=== PATIENT | male | born 1950 | race Two or more races ===

== ENCOUNTER 2018-08-15 07:04 | Day surgery (SDC) | payer OTHER ==
[2018-08-15] MEDS ORDERED: SODIUM CHLORIDE 250 ML IV ONE ×2 (08:30→10:30)
[2018-08-15] MEDS ORDERED: PACLITAXEL 90 MG in SODIUM CHLORIDE 250 ML IVPB ONE (09:00)
[2018-08-15] MEDS ORDERED: PALONOSETRON HCL 0.25 MG/5 ML VIAL IVPUSH ONE (09:00)
[2018-08-15] MEDS ORDERED: DEXAMETHASONE INJECTION 10 MG, DIPHENHYDRAMINE 50 MG, RANITIDINE INJECTION 50 MG in SOD... IVPB ONE (09:00)
[2018-08-15 09:17] LABS: HEMATOCRIT 34.2 % (35.4-49); HEMOGLOBIN 11.6 GM/dL (11.7-16.9); LYMPH % 4.7 % (8-40); MCH 31.3 pg (25.7-33.7); MCHC 33.8 g/dl (32.0-35.9); MEAN CELL VOLUME 92.7 fl (80-96); MEAN PLT VOLUME 6.7 fl (7.5-11.1); MONO % 0.6 % (3.8-10.2); NEUT % 94.7 % (42.8-82.8); PLATELET COUNT 398 K/MM3 (134-434); RBC 3.69 M/mm3 (4.00-5.60); WHITE BLOOD COUNT 8.4 K/mm3 (4.0-10.0)
[2018-08-15 09:52] LABS: ALBUMIN 3.1 g/dl (3.4-5.0); ALK PHOS 140 U/L (45-117); ANION GAP 7 MMOL/L (8-16); BILIRUBIN,DIRECT 0.1 mg/dL (0.0-0.2); BILIRUBIN,TOTAL 0.2 mg/dL (0.2-1); BLOOD UREA NITROGEN 11 mg/dL (7-18); CALCIUM 9.4 mg/dL (8.5-10.1); CHLORIDE 102 mmol/L (98-107); CO2 26 mmol/L (21-32); CREATININE 0.9 mg/dL (0.55-1.3); GLUCOSE,RANDOM 240 mg/dL (74-106); MAGNESIUM 2.3 mg/dL (1.8-2.4); POTASSIUM 4.1 mmol/L (3.5-5.1); SGOT/AST 9 U/L (15-37); SGPT/ALT 22 U/L (13-61); SODIUM 136 mmol/L (136-145); TOT PROT 8.2 g/dl (6.4-8.2)
[2018-08-15] MEDS ORDERED: SODIUM CHLORIDE IVPB ONE (10:00)
[2018-08-15] MEDS ORDERED: CARBOPLATIN IVPB ONE (10:00)
[2018-08-15] MEDS ORDERED: Insulin (LOG) Aspart 100 UNITS/ML VIAL SQ ONE (10:08)
[2018-08-15 11:26] LABS: ANISOCYTOSIS 0; MACROCYTOSIS 1+; OVALOCYTE 1+; PLATELET ESTIMATE NORMAL
[2018-08-15 15:43] VITALS: BP 142/71; PULSE 95; TEMP 98.6
== END 2018-08-15 13:15 | disposition home or self-care (01) ==
LOC: JONCCHEMO 07:04 → J7W 09:15 → JONCCHEMO 13:15
PROVIDERS: ATTEND Internal Medicine Hematology & Oncology
DX: Z51.11 Encounter for antineoplastic chemotherapy (principal); C34.91 Malignant neoplasm of unspecified part of right bronchus or lung; Z72.0 Tobacco use
CPT/HCPCS: 36415; 80053; 80076; 82378; 83735; 85025; 96367; 96375; 96413; 96417; J2469

== ENCOUNTER 2018-08-22 07:03 | Day surgery (SDC) | payer OTHER ==
[2018-08-22] MEDS ORDERED: SODIUM CHLORIDE 250 ML IV ONE ×2 (08:00→10:30)
[2018-08-22] MEDS ORDERED: DEXAMETHASONE SODIUM PHOSPHATE 10 MG, DIPHENHYDRAMINE 50 MG, RANITIDINE INJECTION 50 MG... IVPB ONE (08:30)
[2018-08-22] MEDS ORDERED: PALONOSETRON HCL 0.25 MG/5 ML VIAL IVPUSH ONE (08:30)
[2018-08-22] MEDS ORDERED: PACLITAXEL 90 MG in SODIUM CHLORIDE 250 ML IVPB ONE (09:00)
[2018-08-22 09:35] LABS: BASO % 0.2 % (0-2.0); HEMATOCRIT 33.3 % (35.4-49); HEMOGLOBIN 11.1 GM/dL (11.7-16.9); LYMPH % 3.7 % (8-40); MCH 30.6 pg (25.7-33.7); MCHC 33.4 g/dl (32.0-35.9); MEAN CELL VOLUME 91.6 fl (80-96); MEAN PLT VOLUME 7.1 fl (7.5-11.1); MONO % 0.6 % (3.8-10.2); NEUT % 95.5 % (42.8-82.8); PLATELET COUNT 381 K/MM3 (134-434); RBC 3.64 M/mm3 (4.00-5.60); RDW 14.9 % (11.9-15.9); WHITE BLOOD COUNT 5.7 K/mm3 (4.0-10.0)
[2018-08-22 09:57] LABS: ANION GAP 6 MMOL/L (8-16); BLOOD UREA NITROGEN 9 mg/dL (7-18); CHLORIDE 118 mmol/L (98-107); CO2 18 mmol/L (21-32); CREATININE 0.4 mg/dL (0.55-1.3); GLUCOSE,RANDOM 172 mg/dL (74-106); MAGNESIUM 1.3 mg/dL (1.8-2.4); SODIUM 142 mmol/L (136-145)
[2018-08-22] MEDS ORDERED: SODIUM CHLORIDE IVPB ONE (10:00)
[2018-08-22] MEDS ORDERED: CARBOPLATIN IVPB ONE (10:00)
[2018-08-22 10:09] LABS: CALCIUM 5.9 mg/dL (8.5-10.1); POTASSIUM 2.9 mmol/L (3.5-5.1)
[2018-08-22] MEDS ORDERED: MAGNESIUM SULF 50% (8.12 MEQ/2 ML-1 GM VIAL) IVPB ONE (10:45)
[2018-08-22] MEDS ORDERED: CALCIUM GLUCONATE 10% - 1,000 MG/10 ML VIAL IVPB ONE (10:45)
[2018-08-22] MEDS: POTASSIUM CHLORIDE TABS 20 MEQ TABLET.ER (FP) PO SCH ×2 (11:42→15:02)
[2018-08-22 15:48] VITALS: BP 138/61; PULSE 102; TEMP 98.2
== END 2018-08-22 15:30 | disposition home or self-care (01) ==
LOC: JONCCHEMO 07:03 → J7W 09:56 → JONCCHEMO 15:30
PROVIDERS: ATTEND Internal Medicine Hematology & Oncology
DX: Z51.11 Encounter for antineoplastic chemotherapy (principal); C34.91 Malignant neoplasm of unspecified part of right bronchus or lung
CPT/HCPCS: 36415; 80048; 83735; 85025; 96361; 96366; 96367; 96375; 96413; 96417; J2469

== ENCOUNTER 2018-08-23 08:24 | Day surgery (SDC) | payer OTHER ==
[2018-08-23] MEDS ORDERED: POTASSIUM CHLORIDE 20 MEQ in DEXTROSE 5%-NORMAL SALINE 500 ML IVPB SCH (09:45)
[2018-08-23] MEDS ORDERED: ONDANSETRON 4 MG/2 ML VIAL IVPB ONE (10:00)
[2018-08-23] MEDS ORDERED: DEXAMETHASONE SOD PHOSPHATE 4 MG/1 ML VIAL IVPB ONE (10:00)
[2018-08-23] MEDS ORDERED: D5-NS + 20 MEQ KCL - 20 MEQ/1,000 ML INFUS.BAG IV SCH (10:00)
[2018-08-23] MEDS: MAGNESIUM SULF 50% (8.12 MEQ/2 ML-1 GM VIAL) IVPB ONE ×2 (10:14→12:55)
[2018-08-23 12:22] LABS: ALBUMIN 2.8 g/dl (3.4-5.0); ALK PHOS 140 U/L (45-117); ANION GAP 5 MMOL/L (8-16); BILIRUBIN,TOTAL 0.2 mg/dL (0.2-1); BLOOD UREA NITROGEN 14 mg/dL (7-18); CALCIUM 9.2 mg/dL (8.5-10.1); CHLORIDE 104 mmol/L (98-107); CO2 29 mmol/L (21-32); CREATININE 0.8 mg/dL (0.55-1.3); GLUCOSE,RANDOM 178 mg/dL (74-106); MAGNESIUM 2.1 mg/dL (1.8-2.4); POTASSIUM 4.7 mmol/L (3.5-5.1); SGOT/AST 23 U/L (15-37); SGPT/ALT 42 U/L (13-61); SODIUM 138 mmol/L (136-145); TOT PROT 7.1 g/dl (6.4-8.2)
[2018-08-23 15:18] VITALS: BP 127/73; PULSE 87
[2018-08-23 17:18] VITALS: TEMP 98.4
== END 2018-08-23 12:30 | disposition home or self-care (01) ==
LOC: JONCNONCHE 08:24 → J7W 09:34 → JONCNONCHE 12:30
PROVIDERS: ATTEND Internal Medicine Hematology & Oncology
DX: Z51.11 Encounter for antineoplastic chemotherapy (principal); C34.91 Malignant neoplasm of unspecified part of right bronchus or lung
CPT/HCPCS: 36415; 80053; 83735; 84100; 96361; 96366; 96367; 96375; 96413; 96417

== ENCOUNTER 2018-08-29 07:03 | Day surgery (SDC) | payer OTHER ==
[2018-08-29] MEDS ORDERED: PALONOSETRON HCL 0.25 MG/5 ML VIAL IVPUSH ONE (08:00)
[2018-08-29] MEDS ORDERED: DEXAMETHASONE SODIUM PHOSPHATE 10 MG, DIPHENHYDRAMINE 50 MG, RANITIDINE INJECTION 50 MG... IVPB ONE (08:00)
[2018-08-29] MEDS ORDERED: PACLITAXEL 90 MG in SODIUM CHLORIDE 250 ML IVPB ONE (08:30)
[2018-08-29 08:48] LABS: BASO % 0.2 % (0-2.0); HEMATOCRIT 32.9 % (35.4-49); LYMPH % 2.9 % (8-40); MCH 31.1 pg (25.7-33.7); MCHC 33.5 g/dl (32.0-35.9); MEAN CELL VOLUME 92.8 fl (80-96); MEAN PLT VOLUME 6.8 fl (7.5-11.1); MONO % 0.8 % (3.8-10.2); NEUT % 96.1 % (42.8-82.8); PLATELET COUNT 337 K/MM3 (134-434); RBC 3.54 M/mm3 (4.00-5.60); RDW 15.1 % (11.9-15.9); WHITE BLOOD COUNT 3.4 K/mm3 (4.0-10.0)
[2018-08-29 09:21] LABS: ALBUMIN 2.9 g/dl (3.4-5.0); ALK PHOS 135 U/L (45-117); ANION GAP 10 MMOL/L (8-16); BILIRUBIN,DIRECT 0.1 mg/dL (0.0-0.2); BILIRUBIN,TOTAL 0.2 mg/dL (0.2-1); BLOOD UREA NITROGEN 11 mg/dL (7-18); CALCIUM 9.4 mg/dL (8.5-10.1); CHLORIDE 98 mmol/L (98-107); CO2 26 mmol/L (21-32); CREATININE 0.9 mg/dL (0.55-1.3); GLUCOSE,RANDOM 240 mg/dL (74-106); MAGNESIUM 2.1 mg/dL (1.8-2.4); POTASSIUM 4.2 mmol/L (3.5-5.1); SGOT/AST 13 U/L (15-37); SGPT/ALT 23 U/L (13-61); SODIUM 135 mmol/L (136-145); TOT PROT 7.6 g/dl (6.4-8.2)
[2018-08-29] MEDS ORDERED: CARBOPLATIN IVPB ONE (09:30)
[2018-08-29] MEDS ORDERED: SODIUM CHLORIDE IVPB ONE (09:30)
[2018-08-29] MEDS ORDERED: SODIUM CHLORIDE 250 ML IV ONE (10:00)
[2018-08-29] MEDS ORDERED: INSULIN (NOVOLOG) ASPART 100 UNITS/ML 10ML VIAL SQ ONE (10:25)
[2018-08-29 11:00] LABS: ANISOCYTOSIS 1+; MACROCYTOSIS 1+; OVALOCYTE 1+; PLATELET ESTIMATE NORMAL
[2018-08-29 14:32] VITALS: TEMP 97.9
[2018-08-29 14:33] VITALS: BP 133/76; PULSE 94
== END 2018-08-29 12:00 | disposition home or self-care (01) ==
LOC: JONCCHEMO 07:03 → J7W 08:57 → JONCCHEMO 12:00
PROVIDERS: ATTEND Internal Medicine Hematology & Oncology
DX: Z51.11 Encounter for antineoplastic chemotherapy (principal); C34.91 Malignant neoplasm of unspecified part of right bronchus or lung
CPT/HCPCS: 36415; 80048; 80076; 83036; 83735; 85025; 96367; 96375; 96413; 96417; J2469

== ENCOUNTER 2018-09-05 07:09 | Day surgery (SDC) | payer OTHER ==
[2018-09-05] MEDS ORDERED: SODIUM CHLORIDE 250 ML IV ONE ×2 (08:00→10:30)
[2018-09-05] MEDS ORDERED: PALONOSETRON HCL 0.25 MG/5 ML VIAL IVPUSH ONE (08:30)
[2018-09-05] MEDS ORDERED: DEXAMETHASONE SODIUM PHOSPHATE 10 MG, DIPHENHYDRAMINE 50 MG, RANITIDINE INJECTION 50 MG... IVPB ONE (08:30)
[2018-09-05 08:57] LABS: BASO % 0.4 % (0-2.0); EOS % 0.5 % (0-4.5); HEMATOCRIT 31.9 % (35.4-49); HEMOGLOBIN 10.9 GM/dL (11.7-16.9); MCH 31.8 pg (25.7-33.7); MCHC 34.1 g/dl (32.0-35.9); MEAN CELL VOLUME 93.2 fl (80-96); MEAN PLT VOLUME 6.8 fl (7.5-11.1); MONO % 4.7 % (3.8-10.2); NEUT % 91.4 % (42.8-82.8); PLATELET COUNT 223 K/MM3 (134-434); RBC 3.42 M/mm3 (4.00-5.60)
[2018-09-05] MEDS ORDERED: PACLITAXEL 84 MG in SODIUM CHLORIDE 250 ML IVPB ONE (09:00)
[2018-09-05 09:20] LABS: ALK PHOS 115 U/L (45-117); ANION GAP 7 MMOL/L (8-16); BILIRUBIN,DIRECT 0.1 mg/dL (0.0-0.2); BILIRUBIN,TOTAL 0.4 mg/dL (0.2-1); BLOOD UREA NITROGEN 8 mg/dL (7-18); CALCIUM 9.3 mg/dL (8.5-10.1); CHLORIDE 102 mmol/L (98-107); CO2 27 mmol/L (21-32); CREATININE 0.8 mg/dL (0.55-1.3); GLUCOSE,RANDOM 171 mg/dL (74-106); MAGNESIUM 2.1 mg/dL (1.8-2.4); SGOT/AST 21 U/L (15-37); SGPT/ALT 27 U/L (13-61); SODIUM 136 mmol/L (136-145)
[2018-09-05] MEDS ORDERED: SODIUM CHLORIDE IVPB ONE (10:00)
[2018-09-05] MEDS ORDERED: CARBOPLATIN IVPB ONE (10:00)
[2018-09-05 11:45] LABS: ANISOCYTOSIS 0; MACROCYTOSIS 0; PLATELET ESTIMATE NORMAL
[2018-09-05 16:56] VITALS: BP 132/86; PULSE 105; TEMP 98.2
== END 2018-09-05 14:00 | disposition home or self-care (01) ==
LOC: JONCCHEMO 07:09 → J7W 10:17 → JONCCHEMO 14:00
PROVIDERS: ATTEND Internal Medicine Hematology & Oncology
DX: Z51.11 Encounter for antineoplastic chemotherapy (principal); C34.91 Malignant neoplasm of unspecified part of right bronchus or lung
CPT/HCPCS: 36415; 80048; 80076; 83735; 85025; 96375; 96413; 96417; J2469

== ENCOUNTER 2018-09-12 07:16 | Day surgery (SDC) | payer OTHER ==
[2018-09-12] MEDS ORDERED: SODIUM CHLORIDE 250 ML IV ONE ×2 (09:00→11:30)
[2018-09-12 09:10] LABS: BASO % 0.4 % (0-2.0); EOS % 0.4 % (0-4.5); HEMOGLOBIN 10.4 GM/dL (11.7-16.9); LYMPH % 3.7 % (8-40); MCH 31.1 pg (25.7-33.7); MCHC 33.4 g/dl (32.0-35.9); MEAN PLT VOLUME 6.8 fl (7.5-11.1); MONO % 3.7 % (3.8-10.2); NEUT % 91.8 % (42.8-82.8); PLATELET COUNT 158 K/MM3 (134-434); RBC 3.34 M/mm3 (4.00-5.60); RDW 15.6 % (11.9-15.9); WHITE BLOOD COUNT 3.2 K/mm3 (4.0-10.0)
[2018-09-12 09:19] LABS: ALK PHOS 91 U/L (45-117); ANION GAP 10 MMOL/L (8-16); BILIRUBIN,DIRECT 0.1 mg/dL (0.0-0.2); BILIRUBIN,TOTAL 0.3 mg/dL (0.2-1); BLOOD UREA NITROGEN 9 mg/dL (7-18); CHLORIDE 100 mmol/L (98-107); CO2 28 mmol/L (21-32); CREATININE 0.8 mg/dL (0.55-1.3); GLUCOSE,RANDOM 195 mg/dL (74-106); MAGNESIUM 1.9 mg/dL (1.8-2.4); POTASSIUM 3.8 mmol/L (3.5-5.1); SGOT/AST 13 U/L (15-37); SGPT/ALT 21 U/L (13-61); SODIUM 138 mmol/L (136-145); TOT PROT 6.8 g/dl (6.4-8.2)
[2018-09-12] MEDS ORDERED: PALONOSETRON HCL 0.25 MG/5 ML VIAL IVPUSH ONE (09:30)
[2018-09-12] MEDS ORDERED: DEXAMETHASONE SODIUM PHOSPHATE 10 MG, DIPHENHYDRAMINE 50 MG, RANITIDINE INJECTION 50 MG... IVPB ONE (09:30)
[2018-09-12] MEDS ORDERED: PACLITAXEL 84 MG in SODIUM CHLORIDE 250 ML IVPB ONE (10:00)
[2018-09-12] MEDS ORDERED: SODIUM CHLORIDE IVPB ONE (11:00)
[2018-09-12] MEDS ORDERED: CARBOPLATIN IVPB ONE (11:00)
[2018-09-12 15:16] VITALS: BP 135/75; PULSE 103; TEMP 98.8
[2018-09-12 15:29] LABS: PLATELET ESTIMATE ADEQUATE
== END 2018-09-12 13:40 | disposition home or self-care (01) ==
LOC: JONCCHEMO 07:16 → J7W 09:07 → JONCCHEMO 13:40
PROVIDERS: ATTEND Internal Medicine Hematology & Oncology
DX: Z51.11 Encounter for antineoplastic chemotherapy (principal); C34.91 Malignant neoplasm of unspecified part of right bronchus or lung
CPT/HCPCS: 36415; 80048; 80076; 83735; 85025; 96361; 96367; 96375; 96413; 96417; J2469

== ENCOUNTER 2018-09-19 07:10 | Day surgery (SDC) | payer OTHER ==
[2018-09-19 08:54] LABS: BASO % 0.7 % (0-2.0); HEMATOCRIT 32.3 % (35.4-49); HEMOGLOBIN 10.7 GM/dL (11.7-16.9); MCH 31.4 pg (25.7-33.7); MCHC 33.2 g/dl (32.0-35.9); MEAN CELL VOLUME 94.6 fl (80-96); MEAN PLT VOLUME 7.1 fl (7.5-11.1); NEUT % 88.3 % (42.8-82.8); PLATELET COUNT 119 K/MM3 (134-434); RBC 3.42 M/mm3 (4.00-5.60); RDW 15.3 % (11.9-15.9); WHITE BLOOD COUNT 2.3 K/mm3 (4.0-10.0)
[2018-09-19 09:20] LABS: ALBUMIN 3.1 g/dl (3.4-5.0); BILIRUBIN,TOTAL 0.3 mg/dL (0.2-1); CALCIUM 8.9 mg/dL (8.5-10.1); CREATININE 0.8 mg/dL (0.55-1.3); MAGNESIUM 1.9 mg/dL (1.8-2.4); POTASSIUM 3.7 mmol/L (3.5-5.1); TOT PROT 6.6 g/dl (6.4-8.2)
[2018-09-19] MEDS ORDERED: SODIUM CHLORIDE 250 ML IV ONE ×2 (10:00→12:00)
[2018-09-19] MEDS ORDERED: DEXAMETHASONE SODIUM PHOSPHATE 10 MG, DIPHENHYDRAMINE 50 MG, RANITIDINE INJECTION 50 MG... IVPB ONE (10:00)
[2018-09-19] MEDS ORDERED: PALONOSETRON HCL 0.25 MG/5 ML VIAL IVPUSH ONE (10:00)
[2018-09-19] MEDS: PACLITAXEL 84 MG in SODIUM CHLORIDE 250 ML IVPB ONE ×2 (10:34→10:35)
[2018-09-19] MEDS ORDERED: SODIUM CHLORIDE IVPB ONE (11:30)
[2018-09-19] MEDS ORDERED: CARBOPLATIN IVPB ONE (11:30)
[2018-09-19 15:44] VITALS: TEMP 9.1
[2018-09-19 16:12] VITALS: BP 108/72; PULSE 88
== END 2018-09-19 13:30 | disposition home or self-care (01) ==
LOC: JONCCHEMO 07:10 → J7W 09:07 → JONCCHEMO 13:30
PROVIDERS: ATTEND Internal Medicine Hematology & Oncology
DX: Z51.11 Encounter for antineoplastic chemotherapy (principal); C34.91 Malignant neoplasm of unspecified part of right bronchus or lung
CPT/HCPCS: 36415; 80053; 83735; 85025; 96367; 96375; 96413; J2469

== ENCOUNTER 2018-09-26 07:20 | Day surgery (SDC) | payer OTHER ==
[2018-09-26 09:02] LABS: HEMATOCRIT 27.2 % (35.4-49); HEMOGLOBIN 9.2 GM/dL (11.7-16.9); LYMPH % 5.5 % (8-40); MCH 31.8 pg (25.7-33.7); MCHC 33.9 g/dl (32.0-35.9); MEAN CELL VOLUME 93.9 fl (80-96); MEAN PLT VOLUME 7.2 fl (7.5-11.1); MONO % 9.8 % (3.8-10.2); NEUT % 82.3 % (42.8-82.8); PLATELET COUNT 118 K/MM3 (134-434); RDW 16.5 % (11.9-15.9)
[2018-09-26 09:03] LABS: BASO % 0.7 % (0-2.0); EOS % 1.7 % (0-4.5)
[2018-09-26 09:22] LABS: WHITE BLOOD COUNT 1.9 K/mm3 (4.0-10.0)
[2018-09-26 09:29] LABS: ALBUMIN 2.8 g/dl (3.4-5.0); BILIRUBIN,DIRECT 0.1 mg/dL (0.0-0.2); BILIRUBIN,TOTAL 0.3 mg/dL (0.2-1); CALCIUM 8.6 mg/dL (8.5-10.1); CREATININE 0.8 mg/dL (0.55-1.3); POTASSIUM 3.6 mmol/L (3.5-5.1); TOT PROT 6.2 g/dl (6.4-8.2)
[2018-09-26] MEDS ORDERED: SODIUM CHLORIDE 250 ML IV ONE ×2 (09:30→12:00)
[2018-09-26] MEDS ORDERED: DEXAMETHASONE SODIUM PHOSPHATE 10 MG, DIPHENHYDRAMINE 50 MG, RANITIDINE INJECTION 50 MG... IVPB ONE (10:00)
[2018-09-26] MEDS ORDERED: PALONOSETRON HCL 0.25 MG/5 ML VIAL IVPUSH ONE (10:00)
[2018-09-26] MEDS ORDERED: PACLITAXEL 84 MG in SODIUM CHLORIDE 250 ML IVPB ONE ×2 (10:30→10:45)
[2018-09-26] MEDS ORDERED: SODIUM CHLORIDE IVPB ONE (11:30)
[2018-09-26] MEDS ORDERED: TBO-FILGRASTIM 480 MCG/0.8 ML DISP.SYRIN SQ ONE (11:30)
[2018-09-26] MEDS ORDERED: CARBOPLATIN IVPB ONE (11:30)
[2018-09-26 11:34] LABS: ANISOCYTOSIS 3+; MACROCYTOSIS 1+; OVALOCYTE 1+; PLATELET ESTIMATE DECREASED
[2018-09-26 17:09] VITALS: BP 124/78; PULSE 113; TEMP 99
[2018-09-27] MEDS ORDERED: SODIUM CHLORIDE 250 ML IV ONE ×2 (09:30→12:00)
[2018-09-27] MEDS ORDERED: PALONOSETRON HCL 0.25 MG/5 ML VIAL IVPUSH ONE (10:00)
[2018-09-27] MEDS ORDERED: DEXAMETHASONE SODIUM PHOSPHATE 10 MG, DIPHENHYDRAMINE 50 MG, RANITIDINE INJECTION 50 MG... IVPB ONE (10:00)
[2018-09-27] MEDS ORDERED: PACLITAXEL 84 MG in SODIUM CHLORIDE 250 ML IVPB ONE (10:30)
[2018-09-27] MEDS ORDERED: SODIUM CHLORIDE IVPB ONE (11:30)
[2018-09-27] MEDS ORDERED: CARBOPLATIN IVPB ONE (11:30)
[2018-09-27] MEDS ORDERED: TBO-FILGRASTIM 480 MCG/0.8 ML DISP.SYRIN SQ ONE (14:00)
== END 2018-09-26 11:30 | disposition home or self-care (01) ==
LOC: JONCCHEMO 07:20 → J7W 09:50 → JONCCHEMO 11:30
PROVIDERS: ATTEND Internal Medicine Hematology & Oncology
PROC: 3E013GC Introduction of Other Therapeutic Substance into Subcutaneous Tissue, Percutaneous Approach (ICD-10-PCS; principal; 2018-09-26)
DX: C34.91 Malignant neoplasm of unspecified part of right bronchus or lung (principal); Z76.89 Persons encountering health services in other specified circumstances
CPT/HCPCS: 36415; 80053; 80076; 83735; 85025; 96372; J1447

== ENCOUNTER 2018-09-27 07:23 | Day surgery (SDC) | payer OTHER ==
[2018-09-27 08:44] LABS: BASO % 0.2 % (0-2.0); HEMATOCRIT 29.2 % (35.4-49); HEMOGLOBIN 9.7 GM/dL (11.7-16.9); LYMPH % 1.4 % (8-40); MCH 31.8 pg (25.7-33.7); MCHC 33.4 g/dl (32.0-35.9); MEAN CELL VOLUME 95.3 fl (80-96); MEAN PLT VOLUME 7.4 fl (7.5-11.1); MONO % 7.7 % (3.8-10.2); NEUT % 90.7 % (42.8-82.8); PLATELET COUNT 115 K/MM3 (134-434); RBC 3.06 M/mm3 (4.00-5.60); RDW 16.4 % (11.9-15.9); WHITE BLOOD COUNT 8.6 K/mm3 (4.0-10.0)
[2018-09-27] MEDS ORDERED: SODIUM CHLORIDE 250 ML IV ONE ×2 (09:30→12:00)
[2018-09-27] MEDS ORDERED: PALONOSETRON HCL 0.25 MG/5 ML VIAL IVPUSH ONE (10:00)
[2018-09-27] MEDS ORDERED: DEXAMETHASONE SODIUM PHOSPHATE 10 MG, DIPHENHYDRAMINE 50 MG, RANITIDINE INJECTION 50 MG... IVPB ONE (10:00)
[2018-09-27] MEDS ORDERED: PACLITAXEL 84 MG in SODIUM CHLORIDE 250 ML IVPB ONE (10:30)
[2018-09-27] MEDS ORDERED: SODIUM CHLORIDE IVPB ONE (11:30)
[2018-09-27] MEDS ORDERED: CARBOPLATIN IVPB ONE (11:30)
[2018-09-27] MEDS ORDERED: TBO-FILGRASTIM 480 MCG/0.8 ML DISP.SYRIN SQ ONE (12:00)
[2018-09-27 16:39] VITALS: TEMP 98
[2018-09-27 16:40] VITALS: BP 111/67; PULSE 100
== END 2018-09-27 13:00 | disposition home or self-care (01) ==
LOC: JONCCHEMO 07:23 → J7W 09:08 → JONCCHEMO 13:00
PROVIDERS: ATTEND Internal Medicine Hematology & Oncology
PROC: 3E03305 Introduction of Other Antineoplastic into Peripheral Vein, Percutaneous Approach (ICD-10-PCS; principal; 2018-09-27)
PROC: 3E033GC Introduction of Other Therapeutic Substance into Peripheral Vein, Percutaneous Approach (ICD-10-PCS; 2018-09-27)
PROC: 3E0337Z Introduction of Electrolytic and Water Balance Substance into Peripheral Vein, Percutaneous Approach (ICD-10-PCS; 2018-09-27)
DX: Z51.11 Encounter for antineoplastic chemotherapy (principal); C34.91 Malignant neoplasm of unspecified part of right bronchus or lung
CPT/HCPCS: 36415; 85025; 96367; 96375; 96413; 96417; J2469

== ENCOUNTER 2018-09-28 07:29 | Day surgery (SDC) | payer OTHER ==
[2018-09-28] MEDS ORDERED: TBO-FILGRASTIM 480 MCG/0.8 ML DISP.SYRIN SQ ONE (10:00)
[2018-09-28 16:57] VITALS: BP 117/70; PULSE 90; TEMP 98.3
== END 2018-09-28 13:50 | disposition home or self-care (01) ==
LOC: JONCCHEMO 07:29 → J7W 12:44 → JONCCHEMO 13:50
PROVIDERS: ATTEND Internal Medicine Hematology & Oncology
PROC: 3E013GC Introduction of Other Therapeutic Substance into Subcutaneous Tissue, Percutaneous Approach (ICD-10-PCS; principal; 2018-09-28)
DX: C34.91 Malignant neoplasm of unspecified part of right bronchus or lung (principal); Z76.89 Persons encountering health services in other specified circumstances
CPT/HCPCS: 96372; J1447

== ENCOUNTER 2019-01-05 12:34 | Inpatient (IN) | payer OTHER ==
--- NOTE | 2019-01-05 12:42 | PDOC ---
History of Present Illness - General Chief Complaint: Respiratory Stated Complaint: REFERRED BY PCP Time Seen by Provider: 01/05/19 12:42 - History of Present Illness Initial Comments: 01/05/19 13:53 68 year old man with a history of R sided squamous cell carcinoma who presents from Dr. Aviles's office after he was found to have a temp of 101.4F in the office. The patient was set to start nivolumab but was held 2/2 to fever. The patient reports that he has had about 3 days of thick white phlegm and cough but denies any fever. He reports R sided upper chest and upper back pain that has been ongoing since his diagnosis of cancer. He denies any shortness of breath, new chest pain, abdominal pain, dysuria, hematuria, diarrhea, constipation. Per Dr. Aviles's Note: - 5cm RUL irregular cavitary mass which narrows the RUL bronchus as well as potrions of the apical, anterior and posterior RUL bronchus - mass abuts R mediastinum PET CT 06/13/18: - hypermetabolic malignancy in RUL extending into the R hilum and mediastinum - hypermetabolic R hilar and paratracheal nodes - increased FDG activity in the prostate gland 07/04/18 Surgical pathology from bronchoscopy - invasive squamous carcinoma moderately to poorly differentiated 07/30/18 MRI Brain: no metastatic disease Patient received 7 cycles of therapy 08/15/18-09/27/18 of taxol/carboplatinum CT C/A/P 10/28/18 - 5.4x4cm RUL partially cavitary mass lesion seen consistent with neoplastic disease - contiguous extension into the ipsolateral hilum and R paratracheal and pretracheal spaces in the mediastinum - within periphery of RUL several small noduolar opacities suggestive of metastatic disease - fractures of 5th ribs - 1.1x5cm R adrenal nodule - moderate prostate enlargement PET CT 11/24/18 - RUL cavitary mass has changed in morphology - cavitary component of the mass has decreased and wall thickness of the mass has increased - the lesion overall has unchanged in size - the FDG uptake along the periphery of the mass has significantly decreased compared to prior study - partial response to therapy ROS GENERAL/CONSTITUTIONAL: No fever or chills. No weakness. HEAD, EYES, EARS, NOSE AND THROAT: No change in vision. No ear pain or discharge. No sore throat. CARDIOVASCULAR: No shortness of breath RESPIRATORY: No cough, wheezing, or hemoptysis. GASTROINTESTINAL: No nausea, vomiting, diarrhea or constipation. GENITOURINARY: No dysuria, frequency, or change in urination. MUSCULOSKELETAL: No joint or muscle swelling or pain. No neck or back pain. NEUROLOGIC: No headache, vertigo, loss of consciousness, or change in strength/ sensation. PE GENERAL: Awake, alert, and fully oriented, in no acute distress HEAD: No signs of trauma, normocephalic, atraumatic EYES: PERRLA, EOMI, sclera anicteric, conjunctiva clear ENT: oropharynx clear without exudates. Moist mucosa NECK: Normal ROM, supple LUNGS: No distress, speaks full sentences, + rhonchous breath sounds on the R, crackles at L base HEART: Regular rate and rhythm, normal S1 and S2, no murmurs, rubs or gallops, peripheral pulses normal and equal bilaterally. ABDOMEN: Soft, nontender, normoactive bowel sounds. No guarding, no rebound. No masses EXTREMITIES : Normal inspection, Normal range of motion, no edema. No clubbing or cyanosis. NEUROLOGICAL: Cranial nerves II through XII grossly intact. Normal speech, normal gait, no focal sensorimotor deficits SKIN: Warm, Dry, normal turgor, no rashes or lesions noted MDM DDX including but not limited to: post obstructive pna consider viral uri r.o uti W/U: - sepsis TX: - ivf, tylenol, vanc, zosyn ED Course: Kassidy Bashir, PGY2 Emergency Medicine Past History - Past Medical History Allergies/Adverse Reactions: Allergies Allergy/AdvReac Type Severity Reaction Status Date / Time No Known Allergies Allergy Verified 08/15/18 08:13 ED Treatment Course - LABORATORY CBC & Chemistry Diagram: 01/05/19 14:30 01/05/19 14:30 *DC/Admit/Observation/Transfer Diagnosis at time of Disposition: Sepsis, Lung cancer - Discharge Dispostion Condition at time of disposition: Stable Decision to Admit order: Yes - Referrals Referrals: Vic Aviles MD [Primary Care Provider] - - Patient Instructions - Post Discharge Activity
[2019-01-05] MEDS ORDERED: ACETAMINOPHEN 1000 MG/100 ML VIAL (NON FORMULARY) IVPB ONE (14:06)
[2019-01-05] MEDS ORDERED: PIPERACILLIN/TAZOB 3.375 GM 3.375 GM in DEXTROSE 5%-WATER - 50 ML IVPB ONE (14:09)
[2019-01-05] MEDS ORDERED: VANCOMYCIN 1,000 MG in DEXTROSE 5%-WATER - 250 ML IVPB ONE (14:09)
--- NOTE | 2019-01-05 14:33 | PDOC ---
Documentation entered by Rand Shearer SCRIBE, acting as scribe for Jenny Rajput MD. Jenny Rajput MD: This documentation has been prepared by the Manfred ibarra Xhesika, SCRIBE, under my direction and personally reviewed by me in its entirety. I confirm that the documentation accurately reflects all work, treatment, procedures, and medical decision making performed by me. Attending Attestation - Resident Resident Name: Kassidy Bashir - ED Attending Attestation I have performed the following: I have examined & evaluated the patient, The case was reviewed & discussed with the resident, I agree w/resident's findings & plan, Exceptions are as noted - HPI HPI: 01/05/19 13:14 68 year old male with a significant PMH of lung cancer (s/p chemotherapy and radiation) who presents to the emergency department referred by oncologist Dr. Aviles for admission. Dr. Aviles called the ED and reported patient is suppose to start immunotherapy, however, patient spiked a fever of 101.4 today. has chronic cough, known right upper lobe lung tumor with cavitation, no other n/v no diarrhea, no abd pain, no rash. pt states he has had chronic right sided chest pain radiating to his back since his diagnosis of lung ca. The patient denies shortness of breath, headache and dizziness. Denies chills , cough, nausea, vomiting, diarrhea and constipation. Denies dysuria, frequency , urgency and hematuria. Allergies: NKDA PCP: Vic Moreno 01/05/19 14:28 - Physicial Exam PE: 01/05/19 14:29 awake alert lungs with crackle right upper mid lobe , left lung crackles at base. abd soft nt nd heart rrr no mrg ext wwp. no edema. no calf tenderness. neuro alert oriented x 3. - Medical Decision Making 01/05/19 14:30 68 yo male h/o lung ca, right lung cavitary lesion here with fever from chemo office. differential lung pneumonia, uti, bacteremia. plan septic workup labs cultures, lactate, abx will admit. Heart Score/ECG Review #1 General ECG Interpretation: Sinus Rhythm, Normal Intervals, No acute ischemic changes Compared to previous ECG there are: Other (sinus tachycardia [address] elevation or depression.)
[2019-01-05] MEDS ORDERED: ACETAMINOPHEN INJECTION 100 ML IVPB ONE (14:50)
[2019-01-05] MEDS ORDERED: PIPERACILLIN/TAZOB 3.375 GM 3.375 GM/50 ML BAG IVPB ONE ×2 (14:50→18:16)
[2019-01-05] MEDS ORDERED: VANCOMYCIN 1 GRAM (PRE-DOCKED) 1,000 MG/250 ML BAG IVPB ONE ×2 (14:51→15:07)
[2019-01-05 14:55] LABS: BASO % 0.3 % (0-2.0); HEMATOCRIT 26.1 % (35.4-49); HEMOGLOBIN 8.6 GM/dL (11.7-16.9); LYMPH % 4.3 % (8-40); MCH 30.7 pg (25.7-33.7); MEAN CELL VOLUME 93.2 fl (80-96); MEAN PLT VOLUME 6.6 fl (7.5-11.1); MONO % 8.1 % (3.8-10.2); NEUT % 87.3 % (42.8-82.8); PLATELET COUNT 228 K/MM3 (134-434); WHITE BLOOD COUNT 7.7 K/mm3 (4.0-10.0)
[2019-01-05 14:56] LABS: VENOUS PC02 48.4 mmHg (38-52); VENOUS PH 7.38 (7.31-7.41)
[2019-01-05 14:57] LABS: VENOUS PO2 < 49 mmHg (28-48)
[2019-01-05] MEDS ORDERED: SODIUM CHLORIDE 1,000 ML IV SCH (15:00)
[2019-01-05 15:09] LABS: INR 1.31 (0.83-1.09); PROTHROMBIN TIME (PATIENT) 15.5 SEC (9.7-13.0)
[2019-01-05 15:12] LABS: ACTIVATED PTT 36.9 SECONDS (25.2-36.5)
--- NOTE | 2019-01-05 15:28 | EKG ---
Test Reason : Blood Pressure : / mmHG Vent. Rate : 110 BPM Atrial Rate : 110 BPM P-R Int : 160 ms QRS Dur : 078 ms QT Int : 330 ms P-R-T Axes : 055 018 052 degrees QTc Int : 446 ms SINUS TACHYCARDIA POSSIBLE LEFT ATRIAL ENLARGEMENT BORDERLINE ECG NO PREVIOUS ECGS AVAILABLE Confirmed by ANNELIESE VIGIL MD ([id number]) on 01/05/2019 3:27:44 PM Referred By: Confirmed By:ANNELIESE VIGIL MD
[2019-01-05 15:31] LABS: ALBUMIN 2.6 g/dl (3.4-5.0); ALK PHOS 267 U/L (45-117); ANION GAP 6 MMOL/L (8-16); BILIRUBIN,TOTAL 0.6 mg/dL (0.2-1); BLOOD UREA NITROGEN 6.9 mg/dL (7-18); CALCIUM 8.8 mg/dL (8.5-10.1); CHLORIDE 99 mmol/L (98-107); CO2 30 mmol/L (21-32); CREATININE 0.6 mg/dL (0.55-1.3); GLUCOSE,RANDOM 94 mg/dL (74-106); POTASSIUM 3.9 mmol/L (3.5-5.1); SGOT/AST 46 U/L (15-37); SGPT/ALT 65 U/L (13-61); SODIUM 136 mmol/L (136-145); TOT PROT 6.7 g/dl (6.4-8.2)
--- NOTE | 2019-01-05 16:10 | PN ---
Teaching Attending Note Name of Resident: Alfredo Tolliver ATTENDING PHYSICIAN STATEMENT I saw and evaluated the patient. I reviewed the resident's note and discussed the case with the resident. I agree with the resident's findings and plan as documented with exceptions below. SUBJECTIVE: 68 yom with PMHx of RUL squamous cell carcinoma s/ Chemotherapy (carboplatin/ Paclitexal) and radiation therapy, with ongoing disease, active smoker, Chronic pain syndrome (followed at [facility] pain clinic), opioid dependence, was seen at Dr. Aviles's office today to start immunetherapy with nevolumab, was noted with fevers upto 101.4 and sent to the ED. patient reports weakness, poor oral intake, decreased activity and malaise for the last few days. Denies fevers at home. Has chronic cough. Also c/o decreased urination and urgency. Has chronic right upper back/chest wall pain that has been attributed to his known cancer. No nausea, vomiting, diarrhea, palpitations, dyspnea or new concerns otherwise. OBJECTIVE: Vital Signs Period Temp Pulse Resp BP Sys/Seo Pulse Ox Last 24 Hr 98.4 F-99.9 F 110-116 18 90-126/57-66 98-99 Intake & Output 01/02/19 01/03/19 01/04/19 01/05/19 23:59 23:59 23:59 23:59 Weight 160 lb GENERAL: slow, weak looking but appropriate, OX3 HEAD: Normal with no signs of trauma. EYES: Pupils equal, round and reactive to light, extraocular movements intact, sclera anicteric, conjunctiva clear. No lid lag. EARS, NOSE, THROAT: Ears normal, nares patent, oropharynx clear without exudates. dry mucous membrane NECK: Normal range of motion, soft, supple, no JVD LUNGS: few right basilar and right upper lobe rales, decreased air entry all over, no wheezing HEART: Regular rate and rhythm, normal S1 and S2 ABDOMEN: Soft, nontender, not distended, normoactive bowel sounds, no guarding, no rebound, no masses. MUSCULOSKELETAL: Normal range of motion at all joints. No bony deformities or tenderness. No CVA tenderness. UPPER EXTREMITIES: 2+ pulses, warm, well-perfused. No cyanosis. No clubbing. No peripheral edema, no tremors. LOWER EXTREMITIES: 2+ pulses, warm, well-perfused. No calf tenderness. No peripheral edema. NEUROLOGICAL: AAOx3, slow in responses, facial symmetry, speech normal, power 5 /5, sensation intact to light touch, Cranial nerves II-XII intact. gait not observed PSYCHIATRIC: Cooperative. Good eye contact. Appropriate mood and affect. SKIN: Warm, dry, decreased turgor, no rashes or lesions noted, normal capillary refill. Laboratory Results - last 24 hr 01/05/19 01/05/19 01/05/19 14:30 14:30 14:30 WBC RBC Hgb Hct MCV MCH MCHC RDW Plt Count MPV Absolute Neuts (auto) Neutrophils % Lymphocytes % Monocytes % Eosinophils % Basophils % Nucleated RBC % PT with INR 15.50 H INR 1.31 H PTT (Actin FS) 36.9 H VBG pH 7.38 POC VBG pCO2 48.4 POC VBG pO2 < 49 H VBG HCO3 27.9 VBG O2 Sat (Zack) 29.1 L VBG Base Excess 2.8 H Sodium Potassium Chloride Carbon Dioxide Anion Gap BUN Creatinine Est GFR (CKD-EPI)AfAm Est GFR (CKD-EPI)NonAf Random Glucose Lactic Acid 0.8 Calcium Total Bilirubin AST ALT Alkaline Phosphatase Troponin I Total Protein Albumin 01/05/19 01/05/19 14:30 14:30 WBC 7.7 RBC 2.80 L Hgb 8.6 L Hct 26.1 L MCV 93.2 MCH 30.7 MCHC 33.0 RDW 16.0 H Plt Count 228 MPV 6.6 L Absolute Neuts (auto) 6.7 Neutrophils % 87.3 H Lymphocytes % 4.3 L D Monocytes % 8.1 Eosinophils % 0.0 D Basophils % 0.3 Nucleated RBC % 0 PT with INR INR PTT (Actin FS) VBG pH POC VBG pCO2 POC VBG pO2 VBG HCO3 VBG O2 Sat (Zack) VBG Base Excess Sodium 136 Potassium 3.9 Chloride 99 Carbon Dioxide 30 Anion Gap 6 L BUN 6.9 L Creatinine 0.6 Est GFR (CKD-EPI)AfAm 119.74 Est GFR (CKD-EPI)NonAf 103.31 Random Glucose 94 Lactic Acid Calcium 8.8 Total Bilirubin 0.6 AST 46 H ALT 65 H Alkaline Phosphatase 267 H Troponin I < 0.02 Total Protein 6.7 Albumin 2.6 L CXR results and images reviewed EKG NSR ASSESSMENT AND PLAN: 68 yom with PMHx of RUL squamous cell carcinoma s/p Chemotherapy (carboplatin/ Paclitexal) and radiation therapy, with ongoing disease, active smoker, Chronic pain syndrome (followed at [facility] pain clinic), opioid dependence, was seen at Dr. Aviles's office today to start immunetherapy with nevolumab, was noted with fevers upto 101.4 and sent to the ED -Sepsis, r/o post obstructive Pneumonia, UTI -Abnormal LFts -RUL Cavitary squamous cell Carcinoma s/p chemotherapy/radiation therapy -Chronic pain syndrome/Opioid dependence -Tobacco dependence Plan: Zosyn/vancomycin, blood culture, u/a/urine cultures. Aggressive IVF. CT brain/chest. Abdominal US. ID/Oncology consult. Gabapentin/oxycodone. Nicotine patch [id number] lovenox Dispo pending clinical improvement Admit to med surg Plan discussed with patient in detail, all questions answered. Total admit time 65 min.
[2019-01-05] MEDS ORDERED: SODIUM CHLORIDE 1,000 ML IV STA (17:10)
--- NOTE | 2019-01-05 17:28 | PN ---
Progress Note (short form) - Note Progress Note: ID CONSULT DICTATED R/O POST-OBSTRUCTIVE PNEUMONIA RUL CAVITARY CARCINOMA AWAIT C/S EMPIRIC ZOSYN
--- NOTE | 2019-01-05 17:43 | HP ---
CHIEF COMPLAINT: fever PCP: Traci HISTORY OF PRESENT ILLNESS: Pt is a 68 y/o M with PMH R sided squamous cell carcinoma who was sent from Dr. Aviles's after fever of 101.4 was noted in the office. Pt was there to start infusion of a new chemotherapeutic agent (Nivolumab) following 7 cycles of taxol /carboplatinum (08/15/2018 - 09/27/2018) for a 5cm RUL irregular cavitary mass, which was noted to narrow the RUL bronchus as well as apical, anterior, and posterior RUL bronchi. On my interview with the patient, he admits to mild confusion and malaise for the last week or so. He states he is able to remember things, but only with difficulty. He also admits to chronic cough, which hasn't changed in recent days /weeks. He denies sputum, nausea, vomiting, diarrhea, GI upset, headache. No sick contacts, no travel. ER course was notable for: (1) 99 F, HR 110, BP 90/57 (2) CXR with upper lobe mass. (3) [facility] Recent Travel: denies PAST MEDICAL HISTORY: R lung mass PAST SURGICAL HISTORY: bowel resection, laparotomy Social History: Smoking: yes Alcohol: denies Drugs: denies Family History: unknown Allergies No Known Allergies Allergy (Verified 08/15/18 08:13) HOME MEDICATIONS: REVIEW OF SYSTEMS CONSTITUTIONAL: Absent: fever, chills, diaphoresis, generalized weakness, malaise, loss of appetite, weight change HEENT: Absent: rhinorrhea, nasal congestion, throat pain, throat swelling, difficulty swallowing, mouth swelling, ear pain, eye pain, visual changes CARDIOVASCULAR: Absent: chest pain, syncope, palpitations, irregular heart rate, lightheadedness , peripheral edema RESPIRATORY: cough Absent: , shortness of breath, dyspnea with exertion, orthopnea, wheezing, stridor, hemoptysis GASTROINTESTINAL: Absent: abdominal pain, abdominal distension, nausea, vomiting, diarrhea, constipation, melena, hematochezia GENITOURINARY: Absent: dysuria, frequency, urgency, hesitancy, hematuria, flank pain, genital pain MUSCULOSKELETAL: Absent: myalgia, arthralgia, joint swelling, back pain, neck pain SKIN: Absent: rash, itching, pallor HEMATOLOGIC/IMMUNOLOGIC: Absent: easy bleeding, easy bruising, lymphadenopathy, frequent infections ENDOCRINE: Absent: unexplained weight gain, unexplained weight loss, heat intolerance, cold intolerance NEUROLOGIC: Absent: headache, focal weakness or paresthesias, dizziness, unsteady gait, seizure, mental status changes, bladder or bowel incontinence PSYCHIATRIC: Absent: anxiety, depression, suicidal or homicidal ideation, hallucinations. PHYSICAL EXAMINATION Vital Signs - 24 hr 01/05/19 01/05/19 13:22 14:47 Temperature 98.4 F 99.9 F H Pulse Rate 116 H Pulse Rate [ 110 H Left] Respiratory 18 Rate Blood Pressure 90/57 L Blood Pressure 126/66 [Left Arm] O2 Sat by Pulse 98 99 Oximetry (%) Gen: Pleasant, AAOx3 (delayed and difficult response) HEENT: NCAT, EOMI Neck: supple, no jvd Cardio: rrr, normal s1s2, 2/6 midsystolic murmur at the apex Pulm: decreased lung sounds and ronchi R posterior chest Abd: mid epigastric incision scar, soft, nontender, no organomegally Ext: no edema Laboratory Results - last 24 hr 01/05/19 01/05/19 01/05/19 14:30 14:30 14:30 WBC RBC Hgb Hct MCV MCH MCHC RDW Plt Count MPV Absolute Neuts (auto) Neutrophils % Lymphocytes % Monocytes % Eosinophils % Basophils % Nucleated RBC % PT with INR 15.50 H INR 1.31 H PTT (Actin FS) 36.9 H VBG pH 7.38 POC VBG pCO2 48.4 POC VBG pO2 < 49 H VBG HCO3 27.9 VBG O2 Sat (Zack) 29.1 L VBG Base Excess 2.8 H Sodium Potassium Chloride Carbon Dioxide Anion Gap BUN Creatinine Est GFR (CKD-EPI)AfAm Est GFR (CKD-EPI)NonAf Random Glucose Lactic Acid 0.8 Calcium Total Bilirubin AST ALT Alkaline Phosphatase Troponin I Total Protein Albumin 01/05/19 01/05/19 14:30 14:30 WBC 7.7 RBC 2.80 L Hgb 8.6 L Hct 26.1 L MCV 93.2 MCH 30.7 MCHC 33.0 RDW 16.0 H Plt Count 228 MPV 6.6 L Absolute Neuts (auto) 6.7 Neutrophils % 87.3 H Lymphocytes % 4.3 L D Monocytes % 8.1 Eosinophils % 0.0 D Basophils % 0.3 Nucleated RBC % 0 PT with INR INR PTT (Actin FS) VBG pH POC VBG pCO2 POC VBG pO2 VBG HCO3 VBG O2 Sat (Zack) VBG Base Excess Sodium 136 Potassium 3.9 Chloride 99 Carbon Dioxide 30 Anion Gap 6 L BUN 6.9 L Creatinine 0.6 Est GFR (CKD-EPI)AfAm 119.74 Est GFR (CKD-EPI)NonAf 103.31 Random Glucose 94 Lactic Acid Calcium 8.8 Total Bilirubin 0.6 AST 46 H ALT 65 H Alkaline Phosphatase 267 H Troponin I < 0.02 Total Protein 6.7 Albumin 2.6 L ASSESSMENT/PLAN: Pt is a 68 y/o M with PMH R lung CA who developed a fever and was sent from Dr. Aviles's office because of fever. #Sepsis w/ confusion -likely 2/2 PNA, possibly post-obstructive -Vanc/Zosyn -IVF -CT head, chest -Onc consult -ID -Urine Legionella & Strep #Lung CA -pt was to start nivolumab, but did not due to fever -adrenal nodule noted in documentation from [facility] -Onc on board -no hemoptysis -on oxy for back pain -colace Visit type - Emergency Visit Emergency Visit: Yes ED Registration Date: 01/05/19 Care time: The patient presented to the Emergency Department on the above date and was hospitalized for further evaluation of their emergent condition. - New Patient This patient is new to me today: Yes Date on this admission: 01/05/19 - Critical Care Critical Care patient: No ATTENDING PHYSICIAN STATEMENT I saw and evaluated the patient. I reviewed the resident's note and discussed the case with the resident. I agree with the resident's findings and plan as documented. SUBJECTIVE: OBJECTIVE: ASSESSMENT AND PLAN:
[2019-01-05 18:00] LABS: URINE APPEARANCE CLEAR; URINE BILIRUBIN NEGATIVE (NEGATIVE); URINE COLOR YELLOW; URINE GLUCOSE (UA) NEGATIVE (NEGATIVE); URINE KETONE NEGATIVE (NEGATIVE); URINE LEUK ESTERASE 1+ (NEGATIVE); URINE NITRITE NEGATIVE (NEGATIVE); URINE PROTEIN NEGATIVE (NEGATIVE); URINE UROBILINOGEN 0.2 mg/dL (0.2-1.0); YEAST REVIEW (NEGATIVE)
[2019-01-05] MEDS ORDERED: PIPERACILLIN/TAZOB 2.25 GM 2.25 GM in DEXTROSE 5%-WATER - 50 ML IVPB SCH ×2 (18:00→22:00)
[2019-01-05] MEDS ORDERED: GABAPENTIN 300 MG CAPSULE (FP) PO PRN (18:04)
--- NOTE | 2019-01-05 18:12 | CONS ---
DATE OF CONSULTATION: DATE OF DICTATION: 01/05/2019 INFECTIOUS DISEASE CONSULTATION HISTORY OF PRESENT ILLNESS: The patient is a 68-year-old male with a history of cavitary squamous cell carcinoma on the lung who was evaluated for pneumonia. He was in his oncologist's office where he was to begin immunotherapy for his lung cancer. He was noted to have fever 101.4. Patient reported a 3-day history of cough productive of thick sputum. Chest x-ray showed a right upper lobe cavitary mass with infiltrate. CAT scan of the chest from October 28, 2018, showed a large thick walled cavitary lesion present in the right upper lobe with contiguous extension into ipsilateral hilum, right paratracheal and pretracheal spaces of the mediastinum, there were several smaller nodules suggestive of metastatic disease. Patient reports cough productive of whitish sputum. He denies any hemoptysis. He complains of right shoulder pain with movement and cough. PAST MEDICAL HISTORY: Positive for squamous cell carcinoma of the lung status post chemotherapy in August 2018 as well as radiation therapy. ALLERGIES: No known allergies. MEDICATION: Medications at the present time include Colace, oxycodone, Zosyn, vancomycin. SOCIAL HISTORY: Positive for tobacco use. Lives at home in the community with his significant other. SYSTEMS REVIEW: Neurologic: No loss of consciousness, seizure activity, focal weakness. Cardiac: Negative for chest pain or palpitations. Respiratory: As per HPI. Gastrointestinal: Negative vomiting or diarrhea. Genitourinary: Negative for urinary tract infection. LABORATORY DATA: White count 7.7, 87 neutrophils, 4 lymphocytes, 8 monocytes, hematocrit 26.1, platelets 228. Creatinine 0.6, total bilirubin 0.6, alkaline phosphatase 267, AST 46, ALT 65. Blood cultures are pending. PHYSICAL EXAMINATION: General: On exam, he is cachectic and chronically ill appearing. He is slightly short of breath at rest. Vital signs: Temperature 99.9, blood pressure 126/66, pulse 110 regular, respirations 18 per minute. HEENT: Sclerae anicteric. Cardiovascular: Heart sounds S1, S2. Lungs: Scattered rhonchi, diminished breath sounds right upper lung field. Abdomen: Soft, nontender. Extremities: Negative for edema. IMPRESSION: 1. Rule out postobstructive pneumonia. 2. Right upper lobe cavitary carcinoma. 3. Cachexia. Obtain cultures. Continue empiric Zosyn. Oncology followup. Will attempt to obtain records regarding infectious disease workup with respect to the cavitary lesions specifically AFB specimens as well as coccidiomycosis serology. HUMBERTO TOMLINSON M.D. [id number]
[2019-01-05] MEDS ORDERED: HEPARIN NA (PORCINE) 5,000 UNITS/ML 1ML VIAL ONE (18:16)
[2019-01-05 18:17] LABS: EPI CELLS 4 /HPF (0-5/HPF); HYALINE CASTS 1 /lpf (0-8); URINE BACTERIA 4 /hpf (NEGATIVE); URINE RBC 4 /hpf (0-4); URINE WBC 9 /hpf (0-5)
[2019-01-05] MEDS: PIPERACILLIN/TAZOB 3.375 GM 3.375 GM in DEXTROSE 5%-WATER - 50 ML IVPB SCH (18:45)
[2019-01-05] MEDS: HEPARIN NA (PORCINE) 5,000 UNITS/ML 1ML VIAL SQ SCH (18:45)
[2019-01-05 19:46] LABS: ARTERIAL BLD GAS O2 SATURATION 97.9 % (95-98); ARTERIAL BLOOD GAS BASE EXCESS 0.7 meq/l (-2-2); ARTERIAL BLOOD GAS PCO2 37.4 mmHg (35-45); ARTERIAL BLOOD GAS PO2 98.5 mmHg (80-100); ARTERIAL BLOOD GAS pH 7.43 (7.35-7.45)
[2019-01-05 19:50] LABS: ALLENS TEST POSITIVE
[2019-01-05] MEDS: ALBUTEROL SO4 0.083% IH SOL 2.5 MG/3 ML VIAL.NEB. NEB PRN (21:20)
[2019-01-05] MEDS: oxyCODONE HCL 5 MG TABLET PO PRN (21:41)
[2019-01-05] MEDS ORDERED: DOCUSATE SODIUM 100 MG CAPSULE (FP) PO SCH (22:00)
[2019-01-05] MEDS: DOCUSATE SODIUM 100 MG CAPSULE (FP) PO SCH (22:26)
[2019-01-05] MEDS: SODIUM CHLORIDE 1,000 ML IV SCH (22:27)
--- NOTE | 2019-01-05 23:47 | PN ---
Progress Note (short form) - Note Progress Note: 68 y/o M with PMH Rt. sided squamous cell carcinoma who was sent from Dr. Aviles' s after fever of 101.4 was noted in the office. Pt was there to start infusion of nivolumab following 7 cycles of taxol/carboplatinum (08/15/2018 - 09/27/2018) for a 5cm RUL irregular cavitary mass, which was noted to narrow the RUL bronchus as well as apical, anterior, and posterior RUL bronchi. On my interview with the patient, he admits to mild confusion and malaise for the last week or so. He states he is able to remember things, but only with difficulty. He also admits to chronic cough, which hasn't changed in recent days /weeks. He denies sputum, nausea, vomiting, diarrhea, GI upset, headache. No sick contacts, no travel. Also with RUL severe pain radiating into he righ upper extremity PAST MEDICAL HISTORY: R lung mass PAST SURGICAL HISTORY: bowel resection, laparotomy Social History: Smoking: yes Family History: unknown Allergies No Known Allergies Allergy (Verified 08/15/18 08:13) PHYSICAL EXAMINATION Vital Signs - 24 hr 01/05/19 01/05/19 13:22 14:47 Temperature 98.4 F 99.9 F H Pulse Rate 116 H Pulse Rate [ 110 H Left] Respiratory 18 Rate Blood Pressure 90/57 L Blood Pressure 126/66 [Left Arm] O2 Sat by Pulse 98 99 Oximetry (%) Gen: Pleasant, AAOx3 (delayed and difficult response) Neck: supple, no jvd Cardio: rrr, normal s1s2, 2/6 midsystolic murmur at the apex Pulm: decreased lung sounds and ronchi R posterior chest Abd: mid epigastric incision scar, soft, nontender, no organomegally Ext: no edema Laboratory Results - last 24 hr 01/05/19 01/05/19 01/05/19 14:30 14:30 14:30 WBC RBC Hgb Hct MCV MCH MCHC RDW Plt Count MPV Absolute Neuts (auto) Neutrophils % Lymphocytes % Monocytes % Eosinophils % Basophils % Nucleated RBC % PT with INR 15.50 H INR 1.31 H PTT (Actin FS) 36.9 H VBG pH 7.38 POC VBG pCO2 48.4 POC VBG pO2 < 49 H VBG HCO3 27.9 VBG O2 Sat (Zack) 29.1 L VBG Base Excess 2.8 H Sodium Potassium Chloride Carbon Dioxide Anion Gap BUN Creatinine Est GFR (CKD-EPI)AfAm Est GFR (CKD-EPI)NonAf Random Glucose Lactic Acid 0.8 Calcium Total Bilirubin AST ALT Alkaline Phosphatase Troponin I Total Protein Albumin 01/05/19 01/05/19 14:30 14:30 WBC 7.7 RBC 2.80 L Hgb 8.6 L Hct 26.1 L MCV 93.2 MCH 30.7 MCHC 33.0 RDW 16.0 H Plt Count 228 MPV 6.6 L Absolute Neuts (auto) 6.7 Neutrophils % 87.3 H Lymphocytes % 4.3 L D Monocytes % 8.1 Eosinophils % 0.0 D Basophils % 0.3 Nucleated RBC % 0 PT with INR INR PTT (Actin FS) VBG pH POC VBG pCO2 POC VBG pO2 VBG HCO3 VBG O2 Sat (Zack) VBG Base Excess Sodium 136 Potassium 3.9 Chloride 99 Carbon Dioxide 30 Anion Gap 6 L BUN 6.9 L Creatinine 0.6 Est GFR (CKD-EPI)AfAm 119.74 Est GFR (CKD-EPI)NonAf 103.31 Random Glucose 94 Lactic Acid Calcium 8.8 Total Bilirubin 0.6 AST 46 H ALT 65 H Alkaline Phosphatase 267 H Troponin I < 0.02 Total Protein 6.7 Albumin 2.6 L Labs/Meds reviewed ASSESSMENT/PLAN: Pt is a 68 y/o M with PMH Rt. lung squamous cell cancer, s/p weekly carbo/taxol , was starting nivolumab, comes in with fever, post obstructive pneumonia Also severe Rt. upperchest/shoulder pain On zosyn On neurontin 600mg tid increase methadone discussed with nursing staff
[2019-01-06 00:27] VITALS: BMI 21.3
[2019-01-06] MEDS ORDERED: PIPERACILLIN/TAZOBACTAM 3.375 GM VIAL IVPB ONE ×3 (01:04→17:02)
[2019-01-06] MEDS ORDERED: DEXTROSE 5%-WATER - 50 ML IVPB ONE ×3 (01:05→17:02)
[2019-01-06] MEDS: PIPERACILLIN/TAZOB 3.375 GM 3.375 GM in DEXTROSE 5%-WATER - 50 ML IVPB SCH ×3 (01:08→17:08)
[2019-01-06] MEDS: HEPARIN NA (PORCINE) 5,000 UNITS/ML 1ML VIAL SQ SCH ×4 (01:09→17:08)
[2019-01-06] MEDS: oxyCODONE HCL 5 MG TABLET PO PRN (01:49)
[2019-01-06] MEDS: ACETAMINOPHEN 325 MG TABLET (FP) PO PRN (01:49)
[2019-01-06] MEDS: ALBUTEROL SO4 0.083% IH SOL 2.5 MG/3 ML VIAL.NEB. NEB PRN (02:03)
[2019-01-06] MEDS: DOCUSATE SODIUM 100 MG CAPSULE (FP) PO SCH ×3 (05:51→22:16)
--- NOTE | 2019-01-06 07:18 | PN ---
Physical Exam: SUBJECTIVE: Patient seen and examined at bedside. No acute events. Pt more alert today. OBJECTIVE: Vital Signs Period Temp Pulse Resp BP Sys/Seo Pulse Ox Last 24 Hr 98 F-99.9 F 71-116 18-22 90-126/57-73 96-99 Gen: Pleasant, AAOx3 HEENT: NCAT, EOMI Neck: supple, no jvd Cardio: rrr, normal s1s2, 2/6 midsystolic murmur at the apex Pulm: decreased lung sounds and ronchi R posterior chest Abd: mid epigastric incision scar, soft, nontender, no organomegally Ext: no edema Laboratory Results - last 24 hr 01/05/19 01/05/19 01/05/19 14:30 14:30 14:30 WBC RBC Hgb Hct MCV MCH MCHC RDW Plt Count MPV Absolute Neuts (auto) Neutrophils % Lymphocytes % Monocytes % Eosinophils % Basophils % Nucleated RBC % PT with INR 15.50 H INR 1.31 H PTT (Actin FS) 36.9 H Anticoagulation Therapy Puncture Site ABG pH ABG pCO2 at Pt Temp ABG pO2 at Pt Temp ABG HCO3 ABG O2 Sat (Measured) ABG O2 Content ABG Base Excess Farrukh Test VBG pH 7.38 POC VBG pCO2 48.4 POC VBG pO2 < 49 H VBG HCO3 27.9 VBG O2 Sat (Zack) 29.1 L VBG Base Excess 2.8 H O2 Delivery Device Oxygen Flow Rate Vent Mode Vent Rate Mechanical Rate Pressure Support Vent Sodium Potassium Chloride Carbon Dioxide Anion Gap BUN Creatinine Est GFR (CKD-EPI)AfAm Est GFR (CKD-EPI)NonAf Random Glucose Lactic Acid 0.8 Calcium Total Bilirubin AST ALT Alkaline Phosphatase Troponin I Total Protein Albumin Urine Color Urine Appearance Urine pH Ur Specific [place] Urine Protein Urine Glucose (UA) Urine Ketones Urine Blood Urine Nitrite Urine Bilirubin Urine Urobilinogen Ur Leukocyte Esterase Urine WBC (Auto) Urine RBC (Auto) Urine Casts (Auto) U Epithel Cells (Auto) Urine Bacteria (Auto) Urine Yeast (Auto) 01/05/19 01/05/19 01/05/19 14:30 14:30 17:40 WBC 7.7 RBC 2.80 L Hgb 8.6 L Hct 26.1 L MCV 93.2 MCH 30.7 MCHC 33.0 RDW 16.0 H Plt Count 228 MPV 6.6 L Absolute Neuts (auto) 6.7 Neutrophils % 87.3 H Lymphocytes % 4.3 L D Monocytes % 8.1 Eosinophils % 0.0 D Basophils % 0.3 Nucleated RBC % 0 PT with INR INR PTT (Actin FS) Anticoagulation Therapy Puncture Site ABG pH ABG pCO2 at Pt Temp ABG pO2 at Pt Temp ABG HCO3 ABG O2 Sat (Measured) ABG O2 Content ABG Base Excess Farrukh Test VBG pH POC VBG pCO2 POC VBG pO2 VBG HCO3 VBG O2 Sat (Zack) VBG Base Excess O2 Delivery Device Oxygen Flow Rate Vent Mode Vent Rate Mechanical Rate Pressure Support Vent Sodium 136 Potassium 3.9 Chloride 99 Carbon Dioxide 30 Anion Gap 6 L BUN 6.9 L Creatinine 0.6 Est GFR (CKD-EPI)AfAm 119.74 Est GFR (CKD-EPI)NonAf 103.31 Random Glucose 94 Lactic Acid Calcium 8.8 Total Bilirubin 0.6 AST 46 H ALT 65 H Alkaline Phosphatase 267 H Troponin I < 0.02 Total Protein 6.7 Albumin 2.6 L Urine Color Yellow Urine Appearance Clear Urine pH 7.0 Ur Specific [place] 1.008 L Urine Protein Negative Urine Glucose (UA) Negative Urine Ketones Negative Urine Blood 2+ H Urine Nitrite Negative Urine Bilirubin Negative Urine Urobilinogen 0.2 Ur Leukocyte Esterase 1+ H Urine WBC (Auto) 9 Urine RBC (Auto) 4 Urine Casts (Auto) 1 U Epithel Cells (Auto) 4 Urine Bacteria (Auto) 4 Urine Yeast (Auto) Review A* 01/05/19 01/05/19 19:23 21:00 WBC RBC Hgb Hct MCV MCH MCHC RDW Plt Count MPV Absolute Neuts (auto) Neutrophils % Lymphocytes % Monocytes % Eosinophils % Basophils % Nucleated RBC % PT with INR INR PTT (Actin FS) Anticoagulation Therapy No Result Required. Puncture Site Right radial ABG pH 7.43 ABG pCO2 at Pt Temp 37.4 ABG pO2 at Pt Temp 98.5 ABG HCO3 24.4 ABG O2 Sat (Measured) 97.9 ABG O2 Content 11.1 ABG Base Excess 0.7 Farrukh Test Positive VBG pH POC VBG pCO2 POC VBG pO2 VBG HCO3 VBG O2 Sat (Zack) VBG Base Excess O2 Delivery Device No Result Required. Oxygen Flow Rate No Vent Mode No Result Required. Vent Rate No Result Required. Mechanical Rate No Result Required. Pressure Support Vent No Result Required. Sodium Potassium Chloride Carbon Dioxide Anion Gap BUN Creatinine Est GFR (CKD-EPI)AfAm Est GFR (CKD-EPI)NonAf Random Glucose Lactic Acid 0.8 Calcium Total Bilirubin AST ALT Alkaline Phosphatase Troponin I Total Protein Albumin Urine Color Urine Appearance Urine pH Ur Specific [place] Urine Protein Urine Glucose (UA) Urine Ketones Urine Blood Urine Nitrite Urine Bilirubin Urine Urobilinogen Ur Leukocyte Esterase Urine WBC (Auto) Urine RBC (Auto) Urine Casts (Auto) U Epithel Cells (Auto) Urine Bacteria (Auto) Urine Yeast (Auto) Active Medications Generic Name Dose Route Start Last Admin Trade Name Freq PRN Reason Stop Dose Admin Acetaminophen 650 mg 01/05/19 18:04 01/06/19 01:49 Tylenol - PO 650 mg Q6H PRN Administration PAIN Albuterol Sulfate 1 amp 01/05/19 21:14 01/06/19 02:03 Ventolin 0.083% Nebulizer Soln - NEB 1 amp Q4H PRN Administration SHORT OF BREATH/WHEEZING Docusate Sodium 100 mg 01/05/19 22:00 01/06/19 05:51 Colace - PO 100 mg TID SHIRA Administration Gabapentin 300 mg 01/05/19 18:04 01/06/19 03:30 Neurontin - PO 300 mg BID PRN Administration PAIN Heparin Sodium (Porcine) 5,000 unit 01/05/19 18:00 01/06/19 01:09 Heparin - SQ 5,000 unit Q8H-IV SHIRA Administration Sodium Chloride 1,000 mls @ 100 mls/hr 01/05/19 17:15 01/05/19 22:27 Normal Saline - IV 100 mls/hr ASDIR SHIRA Administration Piperacillin Sod/Tazobactam 50 mls @ 100 mls/hr 01/05/19 18:00 01/06/19 01:08 Sod 3.375 gm/ Dextrose IVPB 100 mls/hr Q8H-IV SHIRA Administration Protocol Oxycodone HCl 5 mg 01/05/19 17:14 01/06/19 01:49 Roxicodone - PO 5 mg Q4H PRN Administration PAIN LEVEL 1-5 Pantoprazole Sodium 40 mg 01/06/19 10:00 Protonix - PO DAILY SHIRA Tamsulosin HCl 0.4 mg 01/06/19 10:00 Flomax - PO DAILY SHIRA Active Medications Acetaminophen (Tylenol -) 650 mg PO Q6H PRN PRN Reason: PAIN Last Admin: 01/06/19 01:49 Dose: 650 mg Albuterol Sulfate (Ventolin 0.083% Nebulizer Soln -) 1 amp NEB Q4H PRN PRN Reason: SHORT OF BREATH/WHEEZING Last Admin: 01/06/19 02:03 Dose: 1 amp Docusate Sodium (Colace -) 100 mg PO TID SHIRA Last Admin: 01/06/19 05:51 Dose: 100 mg Gabapentin (Neurontin -) 300 mg PO BID PRN PRN Reason: PAIN Last Admin: 01/06/19 03:30 Dose: 300 mg Heparin Sodium (Porcine) (Heparin -) 5,000 unit SQ Q8H-IV HSIRA Last Admin: 01/06/19 01:09 Dose: 5,000 unit Sodium Chloride (Normal Saline -) 1,000 mls @ 100 mls/hr IV ASDIR SHIRA Last Admin: 01/05/19 22:27 Dose: 100 mls/hr Piperacillin Sod/Tazobactam (Sod 3.375 gm/ Dextrose) 50 mls @ 100 mls/hr IVPB Q8H-IV SHIRA; Protocol Last Admin: 01/06/19 01:08 Dose: 100 mls/hr Oxycodone HCl (Roxicodone -) 5 mg PO Q4H PRN PRN Reason: PAIN LEVEL 1-5 Last Admin: 01/06/19 01:49 Dose: 5 mg Pantoprazole Sodium (Protonix -) 40 mg PO DAILY [facility] Tamsulosin HCl (Flomax -) 0.4 mg PO DAILY [facility] ASSESSMENT/PLAN: Pt is a 68 y/o M with PMH R lung CA who developed a fever and was sent from Dr. Aviles's office because of fever. #Sepsis w/ confusion -likely 2/2 PNA, possibly post-obstructive -Vanc/Zosyn -IVF -CT head, chest -Onc consult -ID -Urine Legionella & Strep -LFTs improving #Lung CA -pt was to start nivolumab, but did not due to fever -adrenal nodule noted in documentation from [facility] -Onc on board -no hemoptysis -on oxy for back pain -colace Visit type - Emergency Visit Emergency Visit: No - New Patient This patient is new to me today: No - Critical Care Critical Care patient: No ATTENDING PHYSICIAN STATEMENT I saw and evaluated the patient. I reviewed the resident's note and discussed the case with the resident. I agree with the resident's findings and plan as documented. SUBJECTIVE: OBJECTIVE: ASSESSMENT AND PLAN:
[2019-01-06 07:59] LABS: BASO % 0.2 % (0-2.0); EOS % 0.2 % (0-4.5); HEMATOCRIT 24.4 % (35.4-49); HEMOGLOBIN 7.9 GM/dL (11.7-16.9); LYMPH % 2.9 % (8-40); MCH 30.5 pg (25.7-33.7); MCHC 32.5 g/dl (32.0-35.9); MEAN CELL VOLUME 93.8 fl (80-96); MEAN PLT VOLUME 6.6 fl (7.5-11.1); MONO % 6.1 % (3.8-10.2); NEUT % 90.6 % (42.8-82.8); PLATELET COUNT 214 K/MM3 (134-434); RDW 15.8 % (11.9-15.9); WHITE BLOOD COUNT 7.3 K/mm3 (4.0-10.0)
[2019-01-06 08:24] LABS: ALBUMIN 2.5 g/dl (3.4-5.0); BILIRUBIN,TOTAL 0.6 mg/dL (0.2-1); BLOOD UREA NITROGEN 8.2 mg/dL (7-18); CALCIUM 8.4 mg/dL (8.5-10.1); CREATININE 0.6 mg/dL (0.55-1.3); POTASSIUM 3.9 mmol/L (3.5-5.1); TOT PROT 6.2 g/dl (6.4-8.2)
[2019-01-06] MEDS ORDERED: oxyCODONE HCL 5 MG TABLET PO PRN (08:33)
[2019-01-06] MEDS ORDERED: VANCOMYCIN 1 GRAM (PRE-DOCKED) 1,000 MG/250 ML BAG IVPB ONE (10:00)
[2019-01-06] MEDS: TAMSULOSIN HCL 0.4 MG CAP PO SCH (10:02)
--- NOTE | 2019-01-06 10:23 | PN ---
Teaching Attending Note Name of Resident: Alfredo Tolliver ATTENDING PHYSICIAN STATEMENT I saw and evaluated the patient. I reviewed the resident's note and discussed the case with the resident. I agree with the resident's findings and plan as documented with exceptions below. SUBJECTIVE: Patient seen and examined. awake, more interactive, Ox3, denies any new dyspnea , fevers, chills or complaints. OBJECTIVE: Vital Signs Period Temp Pulse Resp BP Sys/Seo Pulse Ox Last 24 Hr 98 F-99.9 F 71-116 18-22 90-126/57-73 96-99 Intake & Output 01/03/19 01/04/19 01/05/19 01/06/19 23:59 23:59 23:59 23:59 Intake Total 200 750 Balance 200 750 Weight 132 lb 1.6 oz General: sitting in chair in no acute distress CVS:S1S2 regular Neck: soft, supple Chest: right sided coarse rales along the entire lung, no wheezing, pos air entry Abdomen: soft, NT, ND, pos bowel sounds Extremities: no edema Home Medications Medication Instructions Recorded Acetaminophen 650 mg PO Q6H PRN 01/05/19 Docusate Sodium [Colace] 100 mg PO TID 01/05/19 Gabapentin 300 mg PO BID PRN 01/05/19 Oxycodone HCl 5 mg PO Q4H PRN 01/05/19 Pantoprazole Sodium [Protonix] 40 mg PO DAILY 01/05/19 Tamsulosin HCl 0.4 mg PO DAILY 01/05/19 Cannabidiol (Cbd) Extract 0.2 ml PO BID 01/06/19 Active Medications Acetaminophen (Tylenol -) 650 mg PO Q6H PRN PRN Reason: PAIN Last Admin: 01/06/19 01:49 Dose: 650 mg Albuterol Sulfate (Ventolin 0.083% Nebulizer Soln -) 1 amp NEB Q4H PRN PRN Reason: SHORT OF BREATH/WHEEZING Last Admin: 01/06/19 02:03 Dose: 1 amp Docusate Sodium (Colace -) 100 mg PO TID SHIRA Last Admin: 01/06/19 05:51 Dose: 100 mg Gabapentin (Neurontin -) 300 mg PO BID PRN PRN Reason: PAIN Last Admin: 01/06/19 03:30 Dose: 300 mg Heparin Sodium (Porcine) (Heparin -) 5,000 unit SQ Q8H-IV SHIRA Last Admin: 01/06/19 10:10 Dose: Not Given Sodium Chloride (Normal Saline -) 1,000 mls @ 100 mls/hr IV ASDIR SHIRA Last Admin: 01/05/19 22:27 Dose: 100 mls/hr Piperacillin Sod/Tazobactam (Sod 3.375 gm/ Dextrose) 50 mls @ 100 mls/hr IVPB Q8H-IV SHIRA; Protocol Last Admin: 01/06/19 10:02 Dose: 100 mls/hr Oxycodone HCl (Roxicodone -) 5 mg PO Q4H PRN PRN Reason: PAIN LEVEL 1-5 Last Admin: 01/06/19 01:49 Dose: 5 mg Oxycodone HCl (Roxicodone -) 10 mg PO Q4H PRN PRN Reason: PAIN LEVEL 6-10 Pantoprazole Sodium (Protonix -) 40 mg PO DAILY SHIRA Tamsulosin HCl (Flomax -) 0.4 mg PO DAILY SHIRA Last Admin: 01/06/19 10:02 Dose: 0.4 mg Laboratory Results - last 24 hr 01/05/19 01/05/19 01/05/19 14:30 14:30 14:30 WBC RBC Hgb Hct MCV MCH MCHC RDW Plt Count MPV Absolute Neuts (auto) Neutrophils % Lymphocytes % Monocytes % Eosinophils % Basophils % Nucleated RBC % PT with INR 15.50 H INR 1.31 H PTT (Actin FS) 36.9 H Anticoagulation Therapy Puncture Site ABG pH ABG pCO2 at Pt Temp ABG pO2 at Pt Temp ABG HCO3 ABG O2 Sat (Measured) ABG O2 Content ABG Base Excess Farrukh Test VBG pH 7.38 POC VBG pCO2 48.4 POC VBG pO2 < 49 H VBG HCO3 27.9 VBG O2 Sat (Zack) 29.1 L VBG Base Excess 2.8 H O2 Delivery Device Oxygen Flow Rate Vent Mode Vent Rate Mechanical Rate Pressure Support Vent Sodium Potassium Chloride Carbon Dioxide Anion Gap BUN Creatinine Est GFR (CKD-EPI)AfAm Est GFR (CKD-EPI)NonAf Random Glucose Lactic Acid 0.8 Calcium Total Bilirubin AST ALT Alkaline Phosphatase Troponin I Total Protein Albumin Urine Color Urine Appearance Urine pH Ur Specific [place] Urine Protein Urine Glucose (UA) Urine Ketones Urine Blood Urine Nitrite Urine Bilirubin Urine Urobilinogen Ur Leukocyte Esterase Urine WBC (Auto) Urine RBC (Auto) Urine Casts (Auto) U Epithel Cells (Auto) Urine Bacteria (Auto) Urine Yeast (Auto) 01/05/19 01/05/19 01/05/19 14:30 14:30 17:40 WBC 7.7 RBC 2.80 L Hgb 8.6 L Hct 26.1 L MCV 93.2 MCH 30.7 MCHC 33.0 RDW 16.0 H Plt Count 228 MPV 6.6 L Absolute Neuts (auto) 6.7 Neutrophils % 87.3 H Lymphocytes % 4.3 L D Monocytes % 8.1 Eosinophils % 0.0 D Basophils % 0.3 Nucleated RBC % 0 PT with INR INR PTT (Actin FS) Anticoagulation Therapy Puncture Site ABG pH ABG pCO2 at Pt Temp ABG pO2 at Pt Temp ABG HCO3 ABG O2 Sat (Measured) ABG O2 Content ABG Base Excess Farrukh Test VBG pH POC VBG pCO2 POC VBG pO2 VBG HCO3 VBG O2 Sat (Zack) VBG Base Excess O2 Delivery Device Oxygen Flow Rate Vent Mode Vent Rate Mechanical Rate Pressure Support Vent Sodium 136 Potassium 3.9 Chloride 99 Carbon Dioxide 30 Anion Gap 6 L BUN 6.9 L Creatinine 0.6 Est GFR (CKD-EPI)AfAm 119.74 Est GFR (CKD-EPI)NonAf 103.31 Random Glucose 94 Lactic Acid Calcium 8.8 Total Bilirubin 0.6 AST 46 H ALT 65 H Alkaline Phosphatase 267 H Troponin I < 0.02 Total Protein 6.7 Albumin 2.6 L Urine Color Yellow Urine Appearance Clear Urine pH 7.0 Ur Specific [place] 1.008 L Urine Protein Negative Urine Glucose (UA) Negative Urine Ketones Negative Urine Blood 2+ H Urine Nitrite Negative Urine Bilirubin Negative Urine Urobilinogen 0.2 Ur Leukocyte Esterase 1+ H Urine WBC (Auto) 9 Urine RBC (Auto) 4 Urine Casts (Auto) 1 U Epithel Cells (Auto) 4 Urine Bacteria (Auto) 4 Urine Yeast (Auto) Review A* 01/05/19 01/05/19 01/06/19 19:23 21:00 07:20 WBC 7.3 RBC 2.60 L Hgb 7.9 L Hct 24.4 L MCV 93.8 MCH 30.5 MCHC 32.5 RDW 15.8 Plt Count 214 MPV 6.6 L Absolute Neuts (auto) 6.7 Neutrophils % 90.6 H Lymphocytes % 2.9 L D Monocytes % 6.1 Eosinophils % 0.2 D Basophils % 0.2 Nucleated RBC % 0 PT with INR INR PTT (Actin FS) Anticoagulation Therapy No Result Required. Puncture Site Right radial ABG pH 7.43 ABG pCO2 at Pt Temp 37.4 ABG pO2 at Pt Temp 98.5 ABG HCO3 24.4 ABG O2 Sat (Measured) 97.9 ABG O2 Content 11.1 ABG Base Excess 0.7 Farrukh Test Positive VBG pH POC VBG pCO2 POC VBG pO2 VBG HCO3 VBG O2 Sat (Zack) VBG Base Excess O2 Delivery Device No Result Required. Oxygen Flow Rate No Vent Mode No Result Required. Vent Rate No Result Required. Mechanical Rate No Result Required. Pressure Support Vent No Result Required. Sodium Potassium Chloride Carbon Dioxide Anion Gap BUN Creatinine Est GFR (CKD-EPI)AfAm Est GFR (CKD-EPI)NonAf Random Glucose Lactic Acid 0.8 Calcium Total Bilirubin AST ALT Alkaline Phosphatase Troponin I Total Protein Albumin Urine Color Urine Appearance Urine pH Ur Specific [place] Urine Protein Urine Glucose (UA) Urine Ketones Urine Blood Urine Nitrite Urine Bilirubin Urine Urobilinogen Ur Leukocyte Esterase Urine WBC (Auto) Urine RBC (Auto) Urine Casts (Auto) U Epithel Cells (Auto) Urine Bacteria (Auto) Urine Yeast (Auto) 01/06/19 07:20 WBC RBC Hgb Hct MCV MCH MCHC RDW Plt Count MPV Absolute Neuts (auto) Neutrophils % Lymphocytes % Monocytes % Eosinophils % Basophils % Nucleated RBC % PT with INR INR PTT (Actin FS) Anticoagulation Therapy Puncture Site ABG pH ABG pCO2 at Pt Temp ABG pO2 at Pt Temp ABG HCO3 ABG O2 Sat (Measured) ABG O2 Content ABG Base Excess Farrukh Test VBG pH POC VBG pCO2 POC VBG pO2 VBG HCO3 VBG O2 Sat (Zack) VBG Base Excess O2 Delivery Device Oxygen Flow Rate Vent Mode Vent Rate Mechanical Rate Pressure Support Vent Sodium 135 L Potassium 3.9 Chloride 102 Carbon Dioxide 29 Anion Gap 5 L BUN 8.2 Creatinine 0.6 Est GFR (CKD-EPI)AfAm 119.74 Est GFR (CKD-EPI)NonAf 103.31 Random Glucose 119 H Lactic Acid Calcium 8.4 L Total Bilirubin 0.6 AST 25 ALT 49 Alkaline Phosphatase 224 H Troponin I Total Protein 6.2 L Albumin 2.5 L Urine Color Urine Appearance Urine pH Ur Specific [place] Urine Protein Urine Glucose (UA) Urine Ketones Urine Blood Urine Nitrite Urine Bilirubin Urine Urobilinogen Ur Leukocyte Esterase Urine WBC (Auto) Urine RBC (Auto) Urine Casts (Auto) U Epithel Cells (Auto) Urine Bacteria (Auto) Urine Yeast (Auto) CT chest images and results reviewed ASSESSMENT AND PLAN: 68 yom with 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 afebrile, normal WBC CT chest results noted. ID input appreciated. Quitasyn. Follow up blood cultures. urine PNA studies. Sputum cx if available. More interactive and appropriate today. continue IVF. Follow up Abdominal US Check iron panel/folate/b12/fobt. Trend H/h. Hold off on transfusion for now. Oncology input. Gabapentin/oxycodone. Nicotine patch [id number] lovenox Dispo in 24-48 hours if afebrile, continues to improve. Discussed with patient and nursing, all questions answered.
[2019-01-06] MEDS: PANTOPRAZOLE 40 MG TABLET (FP) PO SCH (10:24)
--- NOTE | 2019-01-06 13:00 | PN ---
Progress Note, Physician History of Present Illness: OOB IN CHAIR COMPLAINS OF R SHOULDER/ R UPPER BACK PAIN NO C/O DYPSNEA/ COUGH NO C/O F/C AFEBRILE - Current Medication List Current Medications: Active Medications Acetaminophen (Tylenol -) 650 mg PO Q6H PRN PRN Reason: PAIN Last Admin: 01/06/19 01:49 Dose: 650 mg Albuterol Sulfate (Ventolin 0.083% Nebulizer Soln -) 1 amp NEB Q4H PRN PRN Reason: SHORT OF BREATH/WHEEZING Last Admin: 01/06/19 02:03 Dose: 1 amp Docusate Sodium (Colace -) 100 mg PO TID SHIRA Last Admin: 01/06/19 05:51 Dose: 100 mg Gabapentin (Neurontin -) 300 mg PO BID PRN PRN Reason: PAIN Last Admin: 01/06/19 03:30 Dose: 300 mg Guaifenesin (Robitussin -) 10 ml PO Q6H PRN PRN Reason: COUGH Heparin Sodium (Porcine) (Heparin -) 5,000 unit SQ Q8H-IV SHIRA Last Admin: 01/06/19 10:10 Dose: Not Given Sodium Chloride (Normal Saline -) 1,000 mls @ 100 mls/hr IV ASDIR SHIRA Last Admin: 01/05/19 22:27 Dose: 100 mls/hr Piperacillin Sod/Tazobactam (Sod 3.375 gm/ Dextrose) 50 mls @ 100 mls/hr IVPB Q8H-IV SHIRA; Protocol Last Admin: 01/06/19 10:02 Dose: 100 mls/hr Non-Formulary Medication (Cannabidiol (Cbd) Extract) 0.2 ml PO BID SHIRA Oxycodone HCl (Roxicodone -) 5 mg PO Q4H PRN PRN Reason: PAIN LEVEL 1-5 Last Admin: 01/06/19 01:49 Dose: 5 mg Oxycodone HCl (Roxicodone -) 10 mg PO Q4H PRN PRN Reason: PAIN LEVEL 6-10 Last Admin: 01/06/19 10:22 Dose: 10 mg Pantoprazole Sodium (Protonix -) 40 mg PO DAILY SHIRA Last Admin: 01/06/19 10:24 Dose: 40 mg Tamsulosin HCl (Flomax -) 0.4 mg PO DAILY [facility] Last Admin: 01/06/19 10:02 Dose: 0.4 mg - Objective Vital Signs: Vital Signs Temperature 98 F 01/06/19 10:00 Pulse Rate 98 H 01/06/19 10:00 Respiratory Rate 18 01/06/19 10:00 Blood Pressure 119/66 01/06/19 10:00 O2 Sat by Pulse Oximetry (%) 98 01/06/19 09:00 Constitutional: Yes: No Distress, Cachectic Cardiovascular: Yes: Regular Rate and Rhythm, S1, S2 Respiratory: Yes: Diminished, Rhonchi, Other (DECREASED BS R UPPER LUNG FIELD) Gastrointestinal: Yes: Normal Bowel Sounds, Soft. No: Tenderness Edema: No Labs: CBC, BMP 01/06/19 07:20 01/06/19 07:20 INR, PTT INR 1.31 (0.83-1.09) H 01/05/19 14:30 Assessment/Plan POST OBSTRUCTIVE RUL PNEUMONIA CAVITARY RUL CARCINOMA AWAIT C/S CONTINUE EMPIRIC ZOSYN
--- NOTE | 2019-01-06 13:37 | CONSULT ---
Consultation: Hematology/Oncology Consultation REQUESTING PROVIDER: Dr. Tolliver CONSULT REQUEST: We have been asked to medically evaluate this patient for fever HISTORY OF PRESENT ILLNESS: 68 year old female with a history of right sided squamous cell carcinoma presented to the hospital for a fever of 101.[address] Aviles's office. Patient reports non-productive, dry cough since this morning and diffuse pain in his body, worse in his right chest and shoulder. Denies shortness of breath, nausea , vomiting, diarrhea. Denies sick contacts or recent travel. Oncologic History -06/01/18: CT chest showing irregular cavitary mass in RUL bronchis and apical, anterior and posterior RUL abutting R mediastinum -06/13/18: PET scan hypermetabolic malignancy in RUL extending into R hilum and mediastinum, hypermetabolic R hilar and paratracheal nodes, increased FDG activity in prostate gland -07/04/18: surgical path from bronchoscopy showed invasive squamous carcinoma moderately to poorly differentiated -07/30/18: no metastatic disease -08/08/18: diagnosis of squamous cell carcinoma of right lung -08/10/18: chemotherapy with carboplatin and paclitaxel, ended on 09/26/18 -was to begin nivolumab therapy end of december prior to this admission Smokin pack/year smoker, smoked 50 years 1.5 packs per day Alcohol: occasional alcohol use Drugs: none Surgical History: Bowel resection for bowel obstruction Family History: cancer in the father REVIEW OF SYSTEMS: CONSTITUTIONAL: generalized weakness Absent: fever, chills, diaphoresis, malaise, loss of appetite, weight change HEENT: Absent: rhinorrhea, nasal congestion, throat pain, throat swelling, difficulty swallowing, mouth swelling, ear pain, eye pain, visual changes CARDIOVASCULAR: Absent: chest pain, syncope, palpitations, irregular heart rate, lightheadedness , peripheral edema RESPIRATORY: Absent: cough, shortness of breath, dyspnea with exertion, orthopnea, wheezing, stridor, hemoptysis GASTROINTESTINAL: Absent: abdominal pain, abdominal distension, nausea, vomiting, diarrhea, constipation, melena, hematochezia GENITOURINARY: Absent: dysuria, frequency, urgency, hesitancy, hematuria, flank pain, genital pain MUSCULOSKELETAL: myalgia, arthralgia Absent: joint swelling, back pain, neck pain SKIN: Absent: rash, itching, pallor HEMATOLOGIC/IMMUNOLOGIC: Absent: easy bleeding, easy bruising, lymphadenopathy, frequent infections ENDOCRINE: Absent: unexplained weight gain, unexplained weight loss, heat intolerance, cold intolerance NEUROLOGIC: Absent: headache, focal weakness or paresthesias, dizziness, unsteady gait, seizure, mental status changes, bladder or bowel incontinence PSYCHIATRIC: Absent: anxiety, depression, suicidal or homicidal ideation, hallucinations. PHYSICAL EXAMINATION Vital Signs - 24 hr 01/05/19 01/05/19 01/05/19 14:47 15:58 17:25 Temperature 99.9 F H 98.0 F Pulse Rate 92 H Pulse Rate [ 110 H Left] Respiratory Rate Blood Pressure 113/73 Blood Pressure 126/66 [Left Arm] O2 Sat by Pulse 99 98 96 Oximetry (%) 01/05/19 01/05/19 01/05/19 19:20 21:00 23:00 Temperature 98.1 F 98.3 F Pulse Rate 71 Pulse Rate [ 87 Left] Respiratory 18 22 H Rate Blood Pressure 120/62 Blood Pressure 97/65 [Left Arm] O2 Sat by Pulse 96 98 Oximetry (%) 01/06/19 01/06/19 01/06/19 00:41 02:08 04:58 Temperature 98.6 F Pulse Rate 88 Pulse Rate [ Left] Respiratory 22 H 20 20 Rate Blood Pressure 118/68 Blood Pressure [Left Arm] O2 Sat by Pulse 98 98 Oximetry (%) 01/06/19 01/06/19 01/06/19 05:56 09:00 10:00 Temperature 98 F 98 F Pulse Rate 85 98 H Pulse Rate [ Left] Respiratory 18 18 18 Rate Blood Pressure 113/67 119/66 Blood Pressure [Left Arm] O2 Sat by Pulse 98 Oximetry (%) GENERAL: A&Ox3, no acute distress EYES: PERRLA, EOMI ENT: Moist mucus membranes NECK: No JVD BREAST: no masses or lesions noted on exam LUNGS: decreased breath sounds RUL, no crackles or wheezes noted HEART: mildly tachycardic, no murmurs ABDOMEN: Soft, nontender, BS present MUSCULOSKELETAL: No CVA Tenderness EXTREMITIES: 2+ pulses, no edema. NEUROLOGICAL: Cranial nerves II-XII intact. Laboratory Results - last 24 hr 01/05/19 01/05/19 01/05/19 14:30 14:30 14:30 WBC RBC Hgb Hct MCV MCH MCHC RDW Plt Count MPV Absolute Neuts (auto) Neutrophils % Lymphocytes % Monocytes % Eosinophils % Basophils % Nucleated RBC % PT with INR 15.50 H INR 1.31 H PTT (Actin FS) 36.9 H Anticoagulation Therapy Puncture Site ABG pH ABG pCO2 at Pt Temp ABG pO2 at Pt Temp ABG HCO3 ABG O2 Sat (Measured) ABG O2 Content ABG Base Excess Farrukh Test VBG pH 7.38 POC VBG pCO2 48.4 POC VBG pO2 < 49 H VBG HCO3 27.9 VBG O2 Sat (Zack) 29.1 L VBG Base Excess 2.8 H O2 Delivery Device Oxygen Flow Rate Vent Mode Vent Rate Mechanical Rate Pressure Support Vent Sodium Potassium Chloride Carbon Dioxide Anion Gap BUN Creatinine Est GFR (CKD-EPI)AfAm Est GFR (CKD-EPI)NonAf Random Glucose Lactic Acid 0.8 Calcium Total Bilirubin AST ALT Alkaline Phosphatase Troponin I Total Protein Albumin Urine Color Urine Appearance Urine pH Ur Specific [place] Urine Protein Urine Glucose (UA) Urine Ketones Urine Blood Urine Nitrite Urine Bilirubin Urine Urobilinogen Ur Leukocyte Esterase Urine WBC (Auto) Urine RBC (Auto) Urine Casts (Auto) U Epithel Cells (Auto) Urine Bacteria (Auto) Urine Yeast (Auto) 01/05/19 01/05/19 01/05/19 14:30 14:30 17:40 WBC 7.7 RBC 2.80 L Hgb 8.6 L Hct 26.1 L MCV 93.2 MCH 30.7 MCHC 33.0 RDW 16.0 H Plt Count 228 MPV 6.6 L Absolute Neuts (auto) 6.7 Neutrophils % 87.3 H Lymphocytes % 4.3 L D Monocytes % 8.1 Eosinophils % 0.0 D Basophils % 0.3 Nucleated RBC % 0 PT with INR INR PTT (Actin FS) Anticoagulation Therapy Puncture Site ABG pH ABG pCO2 at Pt Temp ABG pO2 at Pt Temp ABG HCO3 ABG O2 Sat (Measured) ABG O2 Content ABG Base Excess Farrukh Test VBG pH POC VBG pCO2 POC VBG pO2 VBG HCO3 VBG O2 Sat (Zack) VBG Base Excess O2 Delivery Device Oxygen Flow Rate Vent Mode Vent Rate Mechanical Rate Pressure Support Vent Sodium 136 Potassium 3.9 Chloride 99 Carbon Dioxide 30 Anion Gap 6 L BUN 6.9 L Creatinine 0.6 Est GFR (CKD-EPI)AfAm 119.74 Est GFR (CKD-EPI)NonAf 103.31 Random Glucose 94 Lactic Acid Calcium 8.8 Total Bilirubin 0.6 AST 46 H ALT 65 H Alkaline Phosphatase 267 H Troponin I < 0.02 Total Protein 6.7 Albumin 2.6 L Urine Color Yellow Urine Appearance Clear Urine pH 7.0 Ur Specific [place] 1.008 L Urine Protein Negative Urine Glucose (UA) Negative Urine Ketones Negative Urine Blood 2+ H Urine Nitrite Negative Urine Bilirubin Negative Urine Urobilinogen 0.2 Ur Leukocyte Esterase 1+ H Urine WBC (Auto) 9 Urine RBC (Auto) 4 Urine Casts (Auto) 1 U Epithel Cells (Auto) 4 Urine Bacteria (Auto) 4 Urine Yeast (Auto) Review A* 01/05/19 01/05/19 01/06/19 19:23 21:00 07:20 WBC 7.3 RBC 2.60 L Hgb 7.9 L Hct 24.4 L MCV 93.8 MCH 30.5 MCHC 32.5 RDW 15.8 Plt Count 214 MPV 6.6 L Absolute Neuts (auto) 6.7 Neutrophils % 90.6 H Lymphocytes % 2.9 L D Monocytes % 6.1 Eosinophils % 0.2 D Basophils % 0.2 Nucleated RBC % 0 PT with INR INR PTT (Actin FS) Anticoagulation Therapy No Result Required. Puncture Site Right radial ABG pH 7.43 ABG pCO2 at Pt Temp 37.4 ABG pO2 at Pt Temp 98.5 ABG HCO3 24.4 ABG O2 Sat (Measured) 97.9 ABG O2 Content 11.1 ABG Base Excess 0.7 Farrukh Test Positive VBG pH POC VBG pCO2 POC VBG pO2 VBG HCO3 VBG O2 Sat (Zack) VBG Base Excess O2 Delivery Device No Result Required. Oxygen Flow Rate No Vent Mode No Result Required. Vent Rate No Result Required. Mechanical Rate No Result Required. Pressure Support Vent No Result Required. Sodium Potassium Chloride Carbon Dioxide Anion Gap BUN Creatinine Est GFR (CKD-EPI)AfAm Est GFR (CKD-EPI)NonAf Random Glucose Lactic Acid 0.8 Calcium Total Bilirubin AST ALT Alkaline Phosphatase Troponin I Total Protein Albumin Urine Color Urine Appearance Urine pH Ur Specific [place] Urine Protein Urine Glucose (UA) Urine Ketones Urine Blood Urine Nitrite Urine Bilirubin Urine Urobilinogen Ur Leukocyte Esterase Urine WBC (Auto) Urine RBC (Auto) Urine Casts (Auto) U Epithel Cells (Auto) Urine Bacteria (Auto) Urine Yeast (Auto) 01/06/19 07:20 WBC RBC Hgb Hct MCV MCH MCHC RDW Plt Count MPV Absolute Neuts (auto) Neutrophils % Lymphocytes % Monocytes % Eosinophils % Basophils % Nucleated RBC % PT with INR INR PTT (Actin FS) Anticoagulation Therapy Puncture Site ABG pH ABG pCO2 at Pt Temp ABG pO2 at Pt Temp ABG HCO3 ABG O2 Sat (Measured) ABG O2 Content ABG Base Excess Farrukh Test VBG pH POC VBG pCO2 POC VBG pO2 VBG HCO3 VBG O2 Sat (Zack) VBG Base Excess O2 Delivery Device Oxygen Flow Rate Vent Mode Vent Rate Mechanical Rate Pressure Support Vent Sodium 135 L Potassium 3.9 Chloride 102 Carbon Dioxide 29 Anion Gap 5 L BUN 8.2 Creatinine 0.6 Est GFR (CKD-EPI)AfAm 119.74 Est GFR (CKD-EPI)NonAf 103.31 Random Glucose 119 H Lactic Acid Calcium 8.4 L Total Bilirubin 0.6 AST 25 ALT 49 Alkaline Phosphatase 224 H Troponin I Total Protein 6.2 L Albumin 2.5 L Urine Color Urine Appearance Urine pH Ur Specific [place] Urine Protein Urine Glucose (UA) Urine Ketones Urine Blood Urine Nitrite Urine Bilirubin Urine Urobilinogen Ur Leukocyte Esterase Urine WBC (Auto) Urine RBC (Auto) Urine Casts (Auto) U Epithel Cells (Auto) Urine Bacteria (Auto) Urine Yeast (Auto) Active Medications Generic Name Dose Route Start Last Admin Trade Name Freq PRN Reason Stop Dose Admin Acetaminophen 650 mg 01/05/19 18:04 01/06/19 01:49 Tylenol - PO 650 mg Q6H PRN Administration PAIN Albuterol Sulfate 1 amp 01/05/19 21:14 01/06/19 02:03 Ventolin 0.083% Nebulizer Soln - NEB 1 amp Q4H PRN Administration SHORT OF BREATH/WHEEZING Docusate Sodium 100 mg 01/05/19 22:00 01/06/19 05:51 Colace - PO 100 mg TID SHIRA Administration Gabapentin 300 mg 01/05/19 18:04 01/06/19 03:30 Neurontin - PO 300 mg BID PRN Administration PAIN Gabapentin 600 mg 01/06/19 14:00 Neurontin - PO TID SHIRA Guaifenesin 10 ml 01/06/19 10:31 Robitussin - PO Q6H PRN COUGH Heparin Sodium (Porcine) 5,000 unit 01/05/19 18:00 01/06/19 10:10 Heparin - SQ Not Given Q8H-IV SHIRA Sodium Chloride 1,000 mls @ 100 mls/hr 01/05/19 17:15 01/05/19 22:27 Normal Saline - IV 100 mls/hr ASDIR SHIRA Administration Piperacillin Sod/Tazobactam 50 mls @ 100 mls/hr 01/05/19 18:00 01/06/19 10:02 Sod 3.375 gm/ Dextrose IVPB 100 mls/hr Q8H-IV SHIRA Administration Protocol Non-Formulary Medication 0.2 ml 01/06/19 22:00 Cannabidiol (Cbd) Extract PO BID SHIRA Oxycodone HCl 5 mg 01/05/19 17:14 01/06/19 01:49 Roxicodone - PO 5 mg Q4H PRN Administration PAIN LEVEL 1-5 Oxycodone HCl 10 mg 01/06/19 08:33 01/06/19 10:22 Roxicodone - PO 10 mg Q4H PRN Administration PAIN LEVEL 6-10 Pantoprazole Sodium 40 mg 01/06/19 10:00 01/06/19 10:24 Protonix - PO 40 mg DAILY SHIRA Administration Tamsulosin HCl 0.4 mg 01/06/19 10:00 01/06/19 10:02 Flomax - PO 0.4 mg DAILY SHIRA Administration ASSESSMENT/PLAN: 68 year old female with a history of right sided squamous cell carcinoma presented to the hospital for a fever of 101.[address] Aviles's office. Patient reports non-productive, dry cough since this morning and diffuse pain in his body, worse in his right chest and shoulder. #Fever #Squamous Cell Carcinoma of R lung #Fever: could be infectious vs tumor related, clinically improved; complaining of generalized musculoskeletal pain -follow cultures -continue zosyn #Squamous Cell Carcinoma of the R Lung -will start nivolumab as outpatient -pain control - gabapentin 3x a day 600mg -methadone 10mg BID #Prophylaxis -heparin 5000 subq TID Florentin Rebolledo D.O., PGY-[address] Velazquez ATTENDING PHYSICIAN STATEMENT I saw and evaluated the patient. I reviewed the resident's note and discussed the case with the resident. I agree with the resident's findings and plan as documented. SUBJECTIVE: OBJECTIVE: ASSESSMENT AND PLAN:
[2019-01-06] MEDS ORDERED: METHADONE HCL 10 MG TABLET PO SCH ×2 (13:45→18:00)
[2019-01-06] MEDS ORDERED: GABAPENTIN 300 MG CAPSULE (FP) PO SCH ×2 (14:00)
[2019-01-06] MEDS ORDERED: LIDOCAINE 5% TOPICAL PATCH TP ONE (14:18)
[2019-01-06] MEDS: GABAPENTIN 300 MG CAPSULE (FP) PO SCH ×3 (14:18→22:16)
[2019-01-06] MEDS: guaiFENesin 200 MG/10 ML 10 ML UNIT-DOSE CUPS PO PRN (14:19)
[2019-01-06] MEDS ORDERED: CANNABIDIOL PO SCH (22:00)
[2019-01-06] MEDS: SODIUM CHLORIDE 1,000 ML IV SCH (22:14)
[2019-01-06] MEDS: METHADONE HCL 10 MG TABLET PO SCH (22:15)
[2019-01-06] MEDS: LIDOCAINE PATCH REMOVAL MC SCH (22:16)
[2019-01-06] MEDS: ZOLPIDEM TARTRATE 5 MG TABLET PO PRN (23:19)
[2019-01-07] MEDS ORDERED: PIPERACILLIN/TAZOBACTAM 3.375 GM VIAL IVPB ONE ×3 (02:40→17:39)
[2019-01-07] MEDS ORDERED: DEXTROSE 5%-WATER - 50 ML IVPB ONE ×3 (02:41→17:40)
[2019-01-07] MEDS: HEPARIN NA (PORCINE) 5,000 UNITS/ML 1ML VIAL SQ SCH ×3 (03:00→17:42)
[2019-01-07] MEDS: PIPERACILLIN/TAZOB 3.375 GM 3.375 GM in DEXTROSE 5%-WATER - 50 ML IVPB SCH ×3 (03:00→17:42)
[2019-01-07] MEDS: METHADONE HCL 10 MG TABLET PO SCH ×3 (06:35→21:27)
[2019-01-07] MEDS: GABAPENTIN 300 MG CAPSULE (FP) PO SCH ×3 (06:35→21:27)
[2019-01-07] MEDS: DOCUSATE SODIUM 100 MG CAPSULE (FP) PO SCH ×3 (06:36→21:26)
[2019-01-07 08:17] LABS: HEMATOCRIT 25.7 % (35.4-49); HEMOGLOBIN 8.4 GM/dL (11.7-16.9); MCH 30.5 pg (25.7-33.7); MCHC 32.9 g/dl (32.0-35.9); MEAN CELL VOLUME 92.8 fl (80-96); MEAN PLT VOLUME 6.6 fl (7.5-11.1); PLATELET COUNT 237 K/MM3 (134-434); RBC 2.77 M/mm3 (4.00-5.60); RDW 15.8 % (11.9-15.9); WHITE BLOOD COUNT 6.8 K/mm3 (4.0-10.0)
[2019-01-07 09:26] LABS: ALBUMIN 2.5 g/dl (3.4-5.0); BILIRUBIN,TOTAL 0.6 mg/dL (0.2-1); BLOOD UREA NITROGEN 5.7 mg/dL (7-18); CALCIUM 8.7 mg/dL (8.5-10.1); CREATININE 0.6 mg/dL (0.55-1.3); POTASSIUM 3.5 mmol/L (3.5-5.1); TOT PROT 6.4 g/dl (6.4-8.2)
[2019-01-07] MEDS: TAMSULOSIN HCL 0.4 MG CAP PO SCH (10:05)
[2019-01-07] MEDS: PANTOPRAZOLE 40 MG TABLET (FP) PO SCH (10:05)
--- NOTE | 2019-01-07 11:34 | EKG ---
Test Reason : Blood Pressure : / mmHG Vent. Rate : 089 BPM Atrial Rate : 089 BPM P-R Int : 166 ms QRS Dur : 080 ms QT Int : 368 ms P-R-T Axes : 055 042 057 degrees QTc Int : 447 ms NORMAL SINUS RHYTHM NORMAL ECG WHEN COMPARED WITH ECG OF 05-JAN-2019 13:18, NO SIGNIFICANT CHANGE WAS FOUND Confirmed by ANNELIESE VIGIL MD ([id number]) on 01/07/2019 11:33:45 AM Referred By: Confirmed By:ANNELIESE VIGIL MD
[2019-01-07] MEDS ORDERED: SODIUM CHLORIDE 1,000 ML IV SCH (12:53)
--- NOTE | 2019-01-07 12:53 | PN ---
Physical Exam: SUBJECTIVE: Patient seen and examined, feels better, pain well controlled, no new complaints. OBJECTIVE: Vital Signs Period Temp Pulse Resp BP Sys/Seo Pulse Ox Last 24 Hr 98.7 F-99.1 F 97-105 18-18 92-137/54-81 96 Intake & Output 01/04/19 01/05/19 01/06/19 01/07/19 23:59 23:59 23:59 23:59 Intake Total 200 1650 650 Balance 200 1650 650 Weight 132 lb 1.6 oz GENERAL: The patient is awake, alert, and fully oriented, in no acute distress. HEAD: Normal with no signs of trauma. EYES: PERRL, extraocular movements intact, sclera anicteric, conjunctiva clear. No ptosis. ENT: Ears normal, nares patent, oropharynx clear without exudates, moist mucous membranes. NECK: Trachea midline, full range of motion, supple. LUNGS: Breath sounds equal, clear to auscultation bilaterally, no wheezes, no crackles, no accessory muscle use. HEART: Regular rate and rhythm, S1, S2 without murmur, rub or gallop. ABDOMEN: Soft, nontender, nondistended, normoactive bowel sounds, no guarding, no rebound, no hepatosplenomegaly, no masses. EXTREMITIES: 2+ pulses, warm, well-perfused, no edema. NEUROLOGICAL: Cranial nerves II through XII grossly intact. Normal speech, gait not observed. PSYCH: Normal mood, normal affect. SKIN: Warm, dry, normal turgor, no rashes or lesions noted Laboratory Results - last 24 hr 01/07/19 01/07/19 01/07/19 06:20 06:20 06:20 WBC 6.8 RBC 2.77 L Hgb 8.4 L Hct 25.7 L MCV 92.8 MCH 30.5 MCHC 32.9 RDW 15.8 Plt Count 237 MPV 6.6 L Sodium 137 Potassium 3.5 Chloride 102 Carbon Dioxide 28 Anion Gap 8 BUN 5.7 L Creatinine 0.6 Est GFR (CKD-EPI)AfAm 119.74 Est GFR (CKD-EPI)NonAf 103.31 Random Glucose 94 Calcium 8.7 Iron 26 L TIBC 143 L Iron Saturation 18 Unsaturated IBC 117 L Ferritin 1616.2 H Total Bilirubin 0.6 AST 23 ALT 39 Alkaline Phosphatase 245 H Total Protein 6.4 Albumin 2.5 L Vitamin B12 315 Serum Folate 10 Active Medications Generic Name Dose Route Start Last Admin Trade Name Freq PRN Reason Stop Dose Admin Acetaminophen 650 mg 01/05/19 18:04 01/06/19 01:49 Tylenol - PO 650 mg Q6H PRN Administration PAIN Albuterol Sulfate 1 amp 01/05/19 21:14 01/06/19 02:03 Ventolin 0.083% Nebulizer Soln - NEB 1 amp Q4H PRN Administration SHORT OF BREATH/WHEEZING Docusate Sodium 100 mg 01/05/19 22:00 01/07/19 06:36 Colace - PO 100 mg TID SHIRA Administration Gabapentin 600 mg 01/06/19 14:15 01/07/19 06:35 Neurontin - PO 600 mg TID SHIRA Administration Guaifenesin 10 ml 01/06/19 10:31 01/06/19 14:19 Robitussin - PO 10 ml Q6H PRN Administration COUGH Heparin Sodium (Porcine) 5,000 unit 01/05/19 18:00 01/07/19 10:06 Heparin - SQ 5,000 unit Q8H-IV SHIRA Administration Sodium Chloride 1,000 mls @ 100 mls/hr 01/05/19 17:15 01/06/19 22:14 Normal Saline - IV 100 mls/hr ASDIR SHIRA Administration Piperacillin Sod/Tazobactam 50 mls @ 100 mls/hr 01/05/19 18:00 01/07/19 10:06 Sod 3.375 gm/ Dextrose IVPB 100 mls/hr Q8H-IV SHIRA Administration Protocol Methadone HCl 10 mg 01/06/19 22:00 01/07/19 06:35 Dolophine - PO 10 mg TID SHIRA Administration Miscellaneous 1 each 01/06/19 22:00 01/06/19 22:16 Lidoderm Patch Removal MC Not Given DAILY@2200 SHIRA Non-Formulary Medication 0.2 ml 01/06/19 22:00 Cannabidiol (Cbd) Extract PO BID SHIRA Pantoprazole Sodium 40 mg 01/06/19 10:00 01/07/19 10:05 Protonix - PO 40 mg DAILY SHIRA Administration Tamsulosin HCl 0.4 mg 01/06/19 10:00 01/07/19 10:05 Flomax - PO 0.4 mg DAILY SHIRA Administration Zolpidem Tartrate 5 mg 01/06/19 15:31 01/06/19 23:19 Ambien - PO 5 mg HS PRN Administration INSOMNIA Microbiology 01/06/19 00:01 Sputum - Expectorated Gram Stain - Final 01/06/19 00:01 Sputum - Expectorated Sputum Culture - Preliminary NORMAL RESPIRATORY JOJO 01/05/19 17:40 Urine - Urine Clean Catch Urine Culture - Final NO GROWTH OBTAINED 01/05/19 14:30 Blood - Peripheral Venous Blood Culture - Preliminary NO GROWTH OBTAINED AFTER 24 HOURS, INCUBATION TO CONTINUE FOR 4 DAYS. 01/05/19 14:15 Blood - Peripheral Venous Blood Culture - Preliminary NO GROWTH OBTAINED AFTER 24 HOURS, INCUBATION TO CONTINUE FOR 4 DAYS. ASSESSMENT/PLAN: 68 yom with PMHx of RUL squamous cell carcinoma s/p Chemotherapy (carboplatin/ Paclitexal) and radiation therapy, with ongoing disease, active smoker, Chronic pain syndrome (followed at [facility] pain clinic), opioid dependence, was seen at Dr. 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 afebrile, normal WBC CT chest results noted. ID input appreciated. Zosyn. Cultures neg so far. More interactive and appropriate today. continue IVF. Iron panel noted, start PO Fe suppl. B12/folate noted. Hold off on transfusion for now. Outpatient follo wup. Oncology input. Gabapentin/oxycodone/methadone. Nicotine patch DVTPPX lovenox Dispo in 24 hours if afebrile, continues to improve. Home oxygen needs assessment prior to dc Discussed with patient and nursing, all questions answered. Visit type - Emergency Visit Emergency Visit: Yes ED Registration Date: 01/05/19 Care time: The patient presented to the Emergency Department on the above date and was hospitalized for further evaluation of their emergent condition. - New Patient This patient is new to me today: No - Critical Care Critical Care patient: No - Discharge Referral Referred to [facility] Med P.C.: No
[2019-01-07] MEDS ORDERED: PT OWN MED DRAWER 7, Y5N ONE (13:26)
--- NOTE | 2019-01-07 13:33 | PN ---
Progress Note, Physician History of Present Illness: SEATED IN BAED COMPLAINS OF R SHOULDER/ R UPPER BACK PAIN NO C/O DYPSNEA/ COUGH NO C/O F/C AFEBRILE - Current Medication List Current Medications: Active Medications Acetaminophen (Tylenol -) 650 mg PO Q6H PRN PRN Reason: PAIN Last Admin: 01/06/19 01:49 Dose: 650 mg Albuterol Sulfate (Ventolin 0.083% Nebulizer Soln -) 1 amp NEB Q4H PRN PRN Reason: SHORT OF BREATH/WHEEZING Last Admin: 01/06/19 02:03 Dose: 1 amp Docusate Sodium (Colace -) 100 mg PO TID [facility] Last Admin: 01/07/19 06:36 Dose: 100 mg Ferrous Gluconate (Fergon -) 324 mg PO DAILY SHIRA Gabapentin (Neurontin -) 600 mg PO TID [facility] Last Admin: 01/07/19 06:35 Dose: 600 mg Guaifenesin (Robitussin -) 10 ml PO Q6H PRN PRN Reason: COUGH Last Admin: 01/06/19 14:19 Dose: 10 ml Heparin Sodium (Porcine) (Heparin -) 5,000 unit SQ Q8H-IV SHIRA Last Admin: 01/07/19 10:06 Dose: 5,000 unit Piperacillin Sod/Tazobactam (Sod 3.375 gm/ Dextrose) 50 mls @ 100 mls/hr IVPB Q8H-IV SHIRA; Protocol Last Admin: 01/07/19 10:06 Dose: 100 mls/hr Sodium Chloride (Normal Saline -) 1,000 mls @ 75 mls/hr IV ASDIR SHIRA Methadone HCl (Dolophine -) 10 mg PO TID [facility] Last Admin: 01/07/19 06:35 Dose: 10 mg Miscellaneous (Lidoderm Patch Removal) 1 each MC DAILY@2200 [facility] Last Admin: 01/06/19 22:16 Dose: Not Given Non-Formulary Medication (Cannabidiol (Cbd) Extract) 0.2 ml PO BID [facility] Pantoprazole Sodium (Protonix -) 40 mg PO DAILY [facility] Last Admin: 01/07/19 10:05 Dose: 40 mg Tamsulosin HCl (Flomax -) 0.4 mg PO DAILY [facility] Last Admin: 01/07/19 10:05 Dose: 0.4 mg Zolpidem Tartrate (Ambien -) 5 mg PO HS PRN PRN Reason: INSOMNIA Last Admin: 01/06/19 23:19 Dose: 5 mg - Objective Vital Signs: Vital Signs Temperature 99.1 F 01/07/19 09:22 Pulse Rate 104 H 01/07/19 09:22 Respiratory Rate 18 01/07/19 09:22 Blood Pressure 92/54 L 01/07/19 09:22 O2 Sat by Pulse Oximetry (%) 96 01/06/19 21:00 Constitutional: Yes: No Distress Cardiovascular: Yes: Regular Rate and Rhythm, S1, S2 Respiratory: Yes: Rhonchi Gastrointestinal: Yes: Normal Bowel Sounds, Soft. No: Tenderness Edema: No Labs: CBC, BMP 01/07/19 06:20 01/07/19 06:20 INR, PTT INR 1.31 (0.83-1.09) H 01/05/19 14:30 Assessment/Plan POST OBSTRUCTIVE RUL PNEUMONIA CAVITARY RUL CARCINOMA CONTINUE EMPIRIC ZOSYN SUBSTITUTE PO AUGMENTIN 875MG BID X7D WHEN READY FOR DISCHARGE
--- NOTE | 2019-01-07 14:49 | PN ---
Progress Note (short form) - Note Progress Note: Patient seen and examined continue to have Rt. chest pain PHYSICAL EXAMINATION Vital Signs Temperature 98 F 01/06/19 10:00 Pulse Rate 98 H 01/06/19 10:00 Respiratory Rate 18 01/06/19 10:00 Blood Pressure 119/66 01/06/19 10:00 O2 Sat by Pulse Oximetry (%) 98 01/06/19 09:00 Constitutional: Yes: No Distress, Cachectic Cardiovascular: Yes: Regular Rate and Rhythm, S1, S2 Respiratory: Yes: Diminished, Rhonchi, Other (DECREASED BS R UPPER LUNG FIELD) Gastrointestinal: Yes: Normal Bowel Sounds, Soft. No: Tenderness Edema: No Labs: CBC, BMP 01/06/19 07:20 01/06/19 07:20 INR, PTT INR 1.31 (0.83-1.09) H 01/05/19 14:30 Labs/Meds reviewed ASSESSMENT/PLAN: Pt is a 68 y/o M with PMH Rt. lung cancer with RUL cavitary mass with shoulder pain/ cough Being treated for postobstructive pneumonia Increase methadone for pain control
[2019-01-07] MEDS ORDERED: POLYETHYLENE GLYCOL 3350 119 GM BTL PO ONE (15:06)
[2019-01-07] MEDS: ACETAMINOPHEN 325 MG TABLET (FP) PO PRN (15:46)
[2019-01-07] MEDS: FERROUS GLUCONATE 324 MG TAB (FP) PO SCH (17:53)
--- NOTE | 2019-01-07 19:35 | PN ---
Progress Note (short form) - Note Progress Note: Pt seen and examined 01/07/19 68 y/o gentleman with PMH Rt. sided squamous cell carcinoma who was sent from Dr. Aviles's after fever of 101.4 was noted in the office. Pt was there to start infusion of nivolumab following 7 cycles of taxol/carboplatinum (08/15/2018 - 09/27) for a 5cm RUL irregular cavitary mass, which was noted to narrow the RUL bronchus as well as apical, anterior, and posterior RUL bronchi. 01/07: Continues to report severe pain (RUL-->RUE). Mentioned cannot sleep well. Reports cough. Pain management not optimal yet. PAST MEDICAL HISTORY: R lung mass PAST SURGICAL HISTORY: bowel resection, laparotomy Social History: Smoking: yes Family History: unknown Allergies No Known Allergies Allergy (Verified 08/15/18 08:13) PHYSICAL EXAMINATION Last Vital Signs Temp Pulse Resp BP Pulse Ox 99.1 F 104 H 18 92/54 L 96 01/07/19 09:22 01/07/19 09:22 01/07/19 09:22 01/07/19 09:22 01/06/19 21:00 Gen: Pleasant, AAOx3 (delayed and difficult response) Neck: supple, no jvd Cardio: rrr, normal s1s2, 2/6 midsystolic murmur at the apex Pulm: decreased lung sounds and ronchi/wheezing all auscultated enamorado Abd: mid epigastric incision scar, soft, nontender, no organomegally Ext: no edema 01/07/19 06:20 01/07/19 06:20 Labs/Meds reviewed ASSESSMENT/PLAN: Pt is a 68 y/o gentleman with PMH Rt. lung squamous cell cancer, s/p weekly carbo/taxol, was starting nivolumab, comes in with fever, post obstructive pneumonia Also severe Rt. upper chest/shoulder pain Recommend: 1) Continue Zosyn. 2) Neurontin 600 mg TID 3) Methadone 10 mg PO TID 4) Lidoderm patch
[2019-01-07] MEDS: LIDOCAINE PATCH REMOVAL MC SCH (21:28)
[2019-01-07] MEDS: ZOLPIDEM TARTRATE 5 MG TABLET PO PRN (21:29)
[2019-01-07] MEDS: POLYETHYLENE GLYCOL 3350 119 GM BTL PO SCH (21:29)
[2019-01-07] MEDS: LIDOCAINE 5% TOPICAL PATCH TP SCH (21:34)
[2019-01-07] MEDS: guaiFENesin 200 MG/10 ML 10 ML UNIT-DOSE CUPS PO PRN (22:07)
[2019-01-08] MEDS ORDERED: DEXTROSE 5%-WATER - 50 ML IVPB ONE ×2 (01:48→09:36)
[2019-01-08] MEDS ORDERED: PIPERACILLIN/TAZOBACTAM 3.375 GM VIAL IVPB ONE ×2 (01:48→09:36)
[2019-01-08] MEDS: PIPERACILLIN/TAZOB 3.375 GM 3.375 GM in DEXTROSE 5%-WATER - 50 ML IVPB SCH ×2 (02:19→09:43)
[2019-01-08] MEDS: HEPARIN NA (PORCINE) 5,000 UNITS/ML 1ML VIAL SQ SCH ×2 (02:19→09:43)
[2019-01-08] MEDS: GABAPENTIN 300 MG CAPSULE (FP) PO SCH (05:46)
[2019-01-08] MEDS: METHADONE HCL 10 MG TABLET PO SCH (05:46)
[2019-01-08] MEDS: ACETAMINOPHEN 325 MG TABLET (FP) PO PRN (05:47)
[2019-01-08] MEDS: DOCUSATE SODIUM 100 MG CAPSULE (FP) PO SCH (05:48)
[2019-01-08] MEDS ORDERED: PT OWN MED DRAWER 7, Y5N ONE (09:36)
[2019-01-08] MEDS: PANTOPRAZOLE 40 MG TABLET (FP) PO SCH (09:43)
[2019-01-08] MEDS: FERROUS GLUCONATE 324 MG TAB (FP) PO SCH (09:43)
[2019-01-08] MEDS: LIDOCAINE 5% TOPICAL PATCH TP SCH (09:43)
[2019-01-08] MEDS: TAMSULOSIN HCL 0.4 MG CAP PO SCH (09:43)
[2019-01-08] MEDS: POLYETHYLENE GLYCOL 3350 119 GM BTL PO SCH (09:47)
--- NOTE | 2019-01-08 10:16 | PN ---
Progress Note (short form) - Note Progress Note: Patient seen and examined continues to have Rt. chest pain PHYSICAL EXAMINATION Vital Signs Temperature 98 F 01/06/19 10:00 Pulse Rate 98 H 01/06/19 10:00 Respiratory Rate 18 01/06/19 10:00 Blood Pressure 119/66 01/06/19 10:00 O2 Sat by Pulse Oximetry (%) 98 01/06/19 09:00 Constitutional: Yes: No Distress, Cachectic Cardiovascular: Yes: Regular Rate and Rhythm, S1, S2 Respiratory: Yes: Diminished, Rhonchi, Other (DECREASED BS R UPPER LUNG FIELD) Gastrointestinal: Yes: Normal Bowel Sounds, Soft. No: Tenderness Edema: No Labs: CBC, BMP 01/06/19 07:20 01/06/19 07:20 INR, PTT INR 1.31 (0.83-1.09) H 01/05/19 14:30 Labs/Meds reviewed ASSESSMENT/PLAN: Pt is a 68 y/o M with PMH Rt. lung cancer with RUL cavitary mass with shoulder pain/ cough Being treated for postobstructive pneumonia Increase methadone for pain control
--- NOTE | 2019-01-08 10:31 | DS ---
Physical Exam: SUBJECTIVE: Patient seen and examined, no new dyspnea, cough. Chronic pain overall unchanged. No new fevers, chills or dizziness. OBJECTIVE: Vital Signs Period Temp Pulse Resp BP Sys/Seo Pulse Ox Last 24 Hr 98.3 F-99.2 F 92-102 18-18 103-123/47-76 100 PHYSICAL EXAM General: sitting in chair in no acute distress HEENT: PERRL, EOMI CVS:S1S2 regular Neck: soft, supple Chest: right sided coarse rales along the entire lung, no wheezing, pos air entry Abdomen: soft, NT, ND, pos bowel sounds Extremities: no edema Psych: interactive LABS Laboratory Results - last 24 hr 01/07/19 06:20 Transferrin 115 L Laboratory Last Values WBC 6.8 K/mm3 (4.0-10.0) 01/07/19 06:20 RBC 2.77 M/mm3 (4.00-5.60) L 01/07/19 06:20 Hgb 8.4 GM/dL (11.7-16.9) L 01/07/19 06:20 Hct 25.7 % (35.4-49) L 01/07/19 06:20 MCV 92.8 fl (80-96) 01/07/19 06:20 MCH 30.5 pg (25.7-33.7) 01/07/19 06:20 MCHC 32.9 g/dl (32.0-35.9) 01/07/19 06:20 RDW 15.8 % (11.9-15.9) 01/07/19 06:20 Plt Count 237 K/MM3 (134-434) 01/07/19 06:20 MPV 6.6 fl (7.5-11.1) L 01/07/19 06:20 Absolute Neuts (auto) 6.7 K/mm3 (1.5-8.0) 01/06/19 07:20 Neutrophils % 90.6 % (42.8-82.8) H 01/06/19 07:20 Lymphocytes % 2.9 % (8-40) L D 01/06/19 07:20 Monocytes % 6.1 % (3.8-10.2) 01/06/19 07:20 Eosinophils % 0.2 % (0-4.5) D 01/06/19 07:20 Basophils % 0.2 % (0-2.0) 01/06/19 07:20 Nucleated RBC % 0 % (0-0) 01/06/19 07:20 PT with INR 15.50 SEC (9.7-13.0) H 01/05/19 14:30 INR 1.31 (0.83-1.09) H 01/05/19 14:30 PTT (Actin FS) 36.9 SECONDS (25.2-36.5) H 01/05/19 14:30 Anticoagulation Therapy No Result Required. 01/05/19 19:23 Puncture Site Right radial 01/05/19 19:23 ABG pH 7.43 (7.35-7.45) 01/05/19 19:23 ABG pCO2 at Pt Temp 37.4 mmHg (35-45) 01/05/19 19: ABG pO2 at Pt Temp 98.5 mmHg (80-100) 01/05/19 19: ABG HCO3 24.4 mmol/L (22-27) 01/05/19 19:23 ABG O2 Sat (Measured) 97.9 % (95-98) 01/05/19 19:23 ABG O2 Content 11.1 % vol 01/05/19 19: ABG Base Excess 0.7 meq/l (-2-2) 01/05/19 19:23 Farrukh Test Positive 01/05/19 19:23 VBG pH 7.38 (7.31-7.41) 01/05/19 14:30 POC VBG pCO2 48.4 mmHg (38-52) 01/05/19 14:30 POC VBG pO2 < 49 mmHg (28-48) H 01/05/19 14:30 VBG HCO3 27.9 mmol/L (23-29) 01/05/19 14:30 VBG O2 Sat (Zack) 29.1 % (70-80) L 01/05/19 14: VBG Base Excess 2.8 meq/l (-2-2) H 01/05/19 14:30 O2 Delivery Device No Result Required. 01/05/19 19: Oxygen Flow Rate No 01/05/19: Vent Mode No Result Required. 01/05/19 19: Vent Rate No Result Required. 01/05/19 19:23 Mechanical Rate No Result Required. 01/05/19 19:23 Pressure Support Vent No Result Required. 01/05/19 19:23 Sodium 137 mmol/L (136-145) 01/07/19 06:20 Potassium 3.5 mmol/L (3.5-5.1) 01/07/19 06:20 Chloride 102 mmol/L (98-107) 01/07/19 06:20 Carbon Dioxide 28 mmol/L (21-32) 01/07/19 06:20 Anion Gap 8 MMOL/L (8-16) 01/07/19 06:20 BUN 5.7 mg/dL (7-18) L 01/07/19 06:20 Creatinine 0.6 mg/dL (0.55-1.3) 01/07/19 06:20 Est GFR (CKD-EPI)AfAm 119.74 01/07/19 06:20 Est GFR (CKD-EPI)NonAf 103.31 01/07/19 06:20 Random Glucose 94 mg/dL (74-106) 01/07/19 06:20 Lactic Acid 0.8 mmol/L (0.4-2.0) 01/05/19 21:00 Calcium 8.7 mg/dL (8.5-10.1) 01/07/19 06:20 Iron 26 ug/dL (50-175) L 01/07/19 06:20 TIBC 143 ug/dL (250-450) L 01/07/19 06:20 Iron Saturation 18 % (17.5-39) 01/07/19 06:20 Unsaturated IBC 117 ug/dL (200-275) L 01/07/19 06:20 Transferrin 115 mg/dL (200-370) L 01/07/19 06:20 Ferritin 1616.2 ng/ml (8-388) H 01/07/19 06:20 Total Bilirubin 0.6 mg/dL (0.2-1) 01/07/19 06:20 AST 23 U/L (15-37) 01/07/19 06:20 ALT 39 U/L (13-61) 01/07/19 06:20 Alkaline Phosphatase 245 U/L (45-117) H 01/07/19 06:20 Troponin I < 0.02 ng/ml (0.00-0.05) 01/05/19 14:30 Total Protein 6.4 g/dl (6.4-8.2) 01/07/19 06:20 Albumin 2.5 g/dl (3.4-5.0) L 01/07/19 06:20 Vitamin B12 315 pg/ml (193-986) 01/07/19 06:20 Serum Folate 10 ng/mL (3.1-17.5) 01/07/19 06:20 Urine Color Yellow 01/05/19 17:40 Urine Appearance Clear 01/05/19 17:40 Urine pH 7.0 (5.0-8.0) 01/05/19 17:40 Ur Specific [place] 1.008 (1.010-1.035) L 01/05/19 17:40 Urine Protein Negative (NEGATIVE) 01/05/19 17:40 Urine Glucose (UA) Negative (NEGATIVE) 01/05/19 17:40 Urine Ketones Negative (NEGATIVE) 01/05/19 17:40 Urine Blood 2+ (NEGATIVE) H 01/05/19 17:40 Urine Nitrite Negative (NEGATIVE) 01/05/19 17:40 Urine Bilirubin Negative (NEGATIVE) 01/05/19 17:40 Urine Urobilinogen 0.2 mg/dL (0.2-1.0) 01/05/19 17:40 Ur Leukocyte Esterase 1+ (NEGATIVE) H 01/05/19 17:40 Urine WBC (Auto) 9 /hpf (0-5) 01/05/19 17:40 Urine RBC (Auto) 4 /hpf (0-4) 01/05/19 17:40 Urine Casts (Auto) 1 /lpf (0-8) 01/05/19 17:40 U Epithel Cells (Auto) 4 /HPF (0-5/HPF) 01/05/19 17:40 Urine Bacteria (Auto) 4 /hpf (NEGATIVE) 01/05/19 17:40 Urine Yeast (Auto) Review (NEGATIVE) A* 01/05/19 17:40 Microbiology 01/05/19 14:30 Blood - Peripheral Venous Blood Culture - Preliminary NO GROWTH OBTAINED AFTER 48 HOURS, INCUBATION TO CONTINUE FOR 3 DAYS. 01/05/19 14:15 Blood - Peripheral Venous Blood Culture - Preliminary NO GROWTH OBTAINED AFTER 48 HOURS, INCUBATION TO CONTINUE FOR 3 DAYS. 01/06/19 00:01 Sputum - Expectorated Gram Stain - Final 01/06/19 00:01 Sputum - Expectorated Sputum Culture - Preliminary NORMAL RESPIRATORY JOJO 01/05/19 17:40 Urine - Urine Clean Catch Urine Culture - Final NO GROWTH OBTAINED CT chest: 01/05/2019: In comparison to a prior CT exam of 10/28/2018 note is made of increased size of a right upper lobe partially necrotic mass lesion currently measuring 7 x 5 cm, previously 5.4 x 4 cm. As on the prior study several areas of air accumulation is noted within this lesion which may be on the basis of necrosis and/or communication with an adjacent bronchus. Also as on the prior exam the lesion abuts the superior aspect of the right hilum with contiguous extension into the subjacent mediastinum. There is probable increased confluent pretracheal and subcarinal mediastinal lymphadenopathy. Increased peripheral right upper lobe opacity is noted laterally which may be on the basis of postobstructive atelectasis and/or infiltrate. Note is again made of prominent luminal narrowing of the right main stem bronchus and right upper lobe bronchus. As on the prior study there is mild rightward mediastinal displacement secondary to diminished right upper lobe volume. Interval development of patchy infiltrates is noted within the superior and medial basal segments of the right lower lobe. No pleural effusion is seen. There is no definite cardiac enlargement. Interval development of a small pericardial effusion is noted. There is no aortic aneurysm. Bilateral rib fractures are seen which appear chronic at this time. There is no obvious associated neoplastic lesion. As on the prior study note is made of moderate to marked degenerative central spinal canal stenosis at the T8- T9 and T9-T10 levels with resultant spinal cord indentation/impingement. Impression: In comparison to a CT exam of 10/28/2018 note is made of increased size of a partially necrotic right upper lobe mass lesion. Development of associated peripheral right upper lobe opacity is seen suggestive of postobstructive atelectasis and/or infiltrate. Increased mediastinal lymphadenopathy is noted. Interval development of patchy infiltrates is seen within the superior and medial basal segments of the right lower lobe. Development of a small pericardial effusion is noted. 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 Aviles's office today to start immunetherapy with nevolumab, was noted with fevers upto 101.4 and sent to the ED. He was placed on zosyn. He had CT chest as above suggestive of post obstructive Pneumonia. He was seen by infectious disease. he was afebrile, blood cultures neg with normal WBC. He will be transitioned to augmentin for 1 week. His mental status improved with hydration and antibiotics. He had CT brain that was negative for acute process. He was on oxycodone/methadone/gabapentin and lidocaine patch for pain control. He was seen by oncology. He was started on oral iron supplementation. He will be discharged in stable condition on 1 week of augmentin with outpatient follow up with oncology and pain management. Condition: Stable - Instructions Diet, Activity, Other Instructions: You were admitted with pneumonia and improved with antibiotics. MEDICATIONS: Antibiotic augmentin for 1 week You are started on iron pills once daily. Continue other medications as before INSTRUCTIONS: Please ensure to drink plenty of fluids and maintain adequate hydration Please note that iron pills can cause constipation and stomach upset. Please ensure to take colace and maintain a good bowel regimen. If stomach upset or inability to tolerate medications, please stop the iron tablets and discuss with Dr. Aviles. FOLLOW UP: With Dr. Aviles in 1 week Follow up with pain management doctor in 1 week If you notice any new fevers, chills, worsening breathing, change in character or color of your sputum, weakness, inability to eat or any new concerns, please call 911 or come to ED. Referrals: Vic Aviles MD [Primary Care Provider] - Disposition: HOME - Home Medications Comprehensive Discharge Medication List: Ambulatory Orders Acetaminophen 650 mg PO Q6H PRN 01/05/19 Docusate Sodium [Colace] 100 mg PO TID 01/05/19 Gabapentin 300 mg PO BID PRN 01/05/19 Oxycodone HCl 5 mg PO Q4H PRN 01/05/19 Pantoprazole Sodium [Protonix] 40 mg PO DAILY 01/05/19 Tamsulosin HCl 0.4 mg PO DAILY 01/05/19 Cannabidiol (Cbd) Extract 0.2 ml PO BID 01/06/19 Amoxicillin/Potassium Clav [Augmentin 875-125 Tablet] 1 each PO BID 7 Days #14 tablet 01/08/19 Ferrous Gluconate [Fergon -] 324 mg PO DAILY #30 tab 01/08/19 Methadone [Dolophine -] 10 mg PO Q12H 01/08/19 This patient is new to me today: No Emergency Visit: Yes ED Registration Date: 01/05/19 Care time: The patient presented to the Emergency Department on the above date and was hospitalized for further evaluation of their emergent condition. Critical Care patient: No - Discharge Referral Referred to [facility] Med P.C.: No
[2019-01-08 13:34] VITALS: BP 129/75; PULSE 101; TEMP 98.5
== END 2019-01-08 01:30 | disposition home or self-care (01) | DRG 871 ==
LOC: JER 12:34 → JERBED 15:58 → J7W 20:39
PROVIDERS: ADMIT Hospitalist; ATTEND Hospitalist
DX: A41.9 Sepsis, unspecified organism (principal); G93.41 Metabolic encephalopathy; J18.8 Other pneumonia, unspecified organism; C34.11 Malignant neoplasm of upper lobe, right bronchus or lung; F11.20 Opioid dependence, uncomplicated; R64 Cachexia; E86.0 Dehydration; F17.210 Nicotine dependence, cigarettes, uncomplicated; Z68.21 Body mass index [BMI] 21.0-21.9, adult; D64.9 Anemia, unspecified
CPT/HCPCS: 36415; 36600; 70450-TC; 71045-TC-FY; 71250-TC; 80048; 80053; 80076; 81003; 82150; 82607; 82728; 82746; 82803; 83540; 83550; 83605; 83690; 83735; 84439; 84443; 84466; 84484; 85025; 85027; 85610; 85730; 87040; 87070; 87086; 87205; 93005; 93010; 94640; 99283-25; J0131; J1644; J7030

== ENCOUNTER → 2019-01-05 | Day surgery (SDC) | payer OTHER | LOC: JONCCHEMO 07:00 ==

== ENCOUNTER 2019-01-12 05:43 | Day surgery (SDC) | payer OTHER ==
[~2019-01-12 05:43] MED LIST: SODIUM CHLORIDE 500 ML IV ONE
[2019-01-12 08:56] LABS: BASO % 0.3 % (0-2.0); EOS % 0.4 % (0-4.5); HEMATOCRIT 23.9 % (35.4-49); HEMOGLOBIN 7.8 GM/dL (11.7-16.9); LYMPH % 4.2 % (8-40); MCH 30.4 pg (25.7-33.7); MCHC 32.5 g/dl (32.0-35.9); MEAN CELL VOLUME 93.7 fl (80-96); MEAN PLT VOLUME 6.7 fl (7.5-11.1); MONO % 7.3 % (3.8-10.2); NEUT % 87.8 % (42.8-82.8); PLATELET COUNT 221 K/MM3 (134-434); RBC 2.55 M/mm3 (4.00-5.60); RDW 16.3 % (11.9-15.9); WHITE BLOOD COUNT 6.3 K/mm3 (4.0-10.0)
[2019-01-12 09:00] LABS: ALBUMIN 2.3 g/dl (3.4-5.0); BILIRUBIN,DIRECT 0.2 mg/dL (0.0-0.2); BILIRUBIN,TOTAL 0.3 mg/dL (0.2-1); BLOOD UREA NITROGEN 5.5 mg/dL (7-18); CALCIUM 8.5 mg/dL (8.5-10.1); CREATININE 0.5 mg/dL (0.55-1.3); MAGNESIUM 2.2 mg/dL (1.8-2.4); TOT PROT 6.1 g/dl (6.4-8.2)
[2019-01-12] MEDS ORDERED: SODIUM CHLORIDE 500 ML IV ONE (10:00)
[2019-01-12] MEDS ORDERED: DEXAMETHASONE SODIUM PHOSPHATE 8 MG in SODIUM CHLORIDE 50 ML IVPB ONE (10:00)
[2019-01-12] MEDS ORDERED: PEMBROLIZUMAB 200 MG in SODIUM CHLORIDE 50 ML IV ONE (10:30)
[2019-01-12] MEDS: POTASSIUM CHLORIDE TABS 20 MEQ TABLET.ER (FP) PO SCH ×3 (12:11→13:30)
[2019-01-12 16:20] VITALS: TEMP 97.8
[2019-01-12 16:55] VITALS: BP 139/84; PULSE 109
== END 2019-01-12 14:00 | disposition home or self-care (01) ==
LOC: JONCCHEMO 05:43 → J7W 09:30 → JONCCHEMO 14:00
PROVIDERS: ATTEND Internal Medicine Hematology & Oncology
PROC: 3E04305 Introduction of Other Antineoplastic into Central Vein, Percutaneous Approach (ICD-10-PCS; principal; 2019-01-12)
PROC: 3E043GC Introduction of Other Therapeutic Substance into Central Vein, Percutaneous Approach (ICD-10-PCS; 2019-01-12)
PROC: 3E0437Z Introduction of Electrolytic and Water Balance Substance into Central Vein, Percutaneous Approach (ICD-10-PCS; 2019-01-12)
DX: Z51.11 Encounter for antineoplastic chemotherapy (principal); C34.91 Malignant neoplasm of unspecified part of right bronchus or lung
CPT/HCPCS: 36415; 80048; 80076; 83735; 84439; 84443; 85025; 93970-TC; 96361; 96375; 96413; J9271

== ENCOUNTER 2019-01-23 19:11 | Inpatient (IN) | payer OTHER ==
--- NOTE | 2019-01-23 19:21 | PDOC ---
Rapid Medical Evaluation Time Seen by Provider: 01/23/19 19:18 Medical Evaluation: Allergies Allergy/AdvReac Type Severity Reaction Status Date / Time No Known Allergies Allergy Verified 08/15/18 08:13 01/23/19 19:18 I have performed a brief in-person evaluation of this patient. The patient presents with a chief complaint of: sent by onc Dr. Aviles for blood transfusion, hx of lung cancer Pertinent physical exam findings: frail, pale, tachy I have ordered the following: labs, ekg, ivf The patient will proceed to the ED for further evaluation. Discharge Disposition - Diagnosis Encounter for blood transfusion - Referrals - Patient Instructions - Post Discharge Activity
[2019-01-23] MEDS ORDERED: SODIUM CHLORIDE 0.9% 500 ML INFUS.BAG IV ONE (19:22)
[2019-01-23 19:30] VITALS: BMI 18.1
[2019-01-23] MEDS ORDERED: ACETAMINOPHEN 325 MG TABLET (FP) PO ONE (20:44)
[2019-01-23] MEDS ORDERED: ACETAMINOPHEN 325 MG TABLET (FP) ONE (21:11)
[2019-01-23 21:48] LABS: BASO % 0.2 % (0-2.0); HEMOGLOBIN 7.9 GM/dL (11.7-16.9); LYMPH % 1.8 % (8-40); MCH 29.1 pg (25.7-33.7); MCHC 31.5 g/dl (32.0-35.9); MEAN CELL VOLUME 92.3 fl (80-96); MEAN PLT VOLUME 6.8 fl (7.5-11.1); MONO % 6.7 % (3.8-10.2); NEUT % 91.3 % (42.8-82.8); PLATELET COUNT 200 K/MM3 (134-434); RBC 2.71 M/mm3 (4.00-5.60); RDW 17.4 % (11.9-15.9)
[2019-01-23] MEDS ORDERED: ALBUTEROL SO4 2.5/IPRATROPIUM 0.5 INH SOL 3 ML VIAL.NEB. NEB ONE ×2 (21:57→22:03)
[2019-01-23 22:22] LABS: ALBUMIN 2.3 g/dl (3.4-5.0); BILIRUBIN,TOTAL 0.6 mg/dL (0.2-1); BLOOD UREA NITROGEN 10.2 mg/dL (7-18); CALCIUM 8.8 mg/dL (8.5-10.1); CREATININE 0.6 mg/dL (0.55-1.3); POTASSIUM 3.7 mmol/L (3.5-5.1); TOT PROT 6.4 g/dl (6.4-8.2)
--- NOTE | 2019-01-23 22:26 | PDOC ---
History of Present Illness - General Chief Complaint: Abnormal Lab Results (Outside) Stated Complaint: SENT BY DR. POLLACK Time Seen by Provider: 01/23/19 19:18 History Source: Patient Exam Limitations: No Limitations - History of Present Illness Initial Comments: 01/23/19 22:22 68 yo male h/o lung CA on chemo. radiation under care dr pollack, here with fatigue lethargy and sob. was found to be anemic in office called told to come to ED. denies f/c cough chronic. does feel sob. uses nebs at home, no relief. also c/o right back shoulder pain which he has had for some time. no n/v no other complaints. also has had bilat leg swelling edema. was evaluated previously with doppler which were negative for DVT 01/24/19 02:32 Past History - Past Medical History Allergies/Adverse Reactions: Allergies Allergy/AdvReac Type Severity Reaction Status Date / Time No Known Allergies Allergy Verified 01/23/19 19:29 Home Medications: Ambulatory Orders Acetaminophen 650 mg PO Q6H PRN 01/05/19 Docusate Sodium [Colace] 100 mg PO TID 01/05/19 Gabapentin 300 mg PO BID PRN 01/05/19 Oxycodone HCl 5 mg PO Q4H PRN 01/05/19 Pantoprazole Sodium [Protonix] 40 mg PO DAILY 01/05/19 Tamsulosin HCl 0.4 mg PO DAILY 01/05/19 Cannabidiol (Cbd) Extract 0.2 ml PO BID 01/06/19 Amoxicillin/Potassium Clav [Augmentin 875-125 Tablet] 1 each PO BID 7 Days #14 tablet 01/08/19 Ferrous Gluconate [Fergon -] 324 mg PO DAILY #30 tab 01/08/19 Guaifenesin Dm [Robitussin Dm -] 5 ml PO Q6H PRN #7 cup 01/08/19 Methadone [Dolophine -] 10 mg PO Q12H 01/08/19 Cancer: Yes (lung ca) COPD: No - Suicide/Smoking/Psychosocial Hx Smoking History: Former smoker Have you smoked in the past 12 months: No Number of Cigarettes Smoked Daily: 30 If you are a former smoker, when did you quit?: August 2018 Information on smoking cessation initiated: No Hx Alcohol Use: No Drug/Substance Use Hx: No Review of Systems - Review of Systems Constitutional: No: Chills, Diaphoresis, Fever HEENTM: No: Eye Pain Respiratory: Yes: Cough, Shortness of Breath Musculoskeletal: Yes: Back Pain All Other Systems: Reviewed and Negative *Physical Exam - Vital Signs Last Vital Signs Temp Pulse Resp BP Pulse Ox 98.8 F 110 H 25 H 102/54 L 97 01/23/19 19:27 01/23/19 19:27 01/23/19 19:27 01/23/19 19:27 01/23/19 19:27 - Physical Exam Comments: 01/23/19 22:24 awake alert lungs with crackles right mid upper lobe. no wheezing. left side faint crackles at bases. heart rrr no mrg abd soft nt nd ext wwp. bilat lower ext edema. pitting. no calf tenderness. skin warm and dry. alert oriented x 3. ED Treatment Course - LABORATORY CBC & Chemistry Diagram: 01/23/19 21:20 01/23/19 21:20 - ADDITIONAL ORDERS Additional order review: 01/23/19 21:20 RBC 2.71 L MCV 92.3 MCHC 31.5 L RDW 17.4 H MPV 6.8 L Neutrophils % 91.3 H Lymphocytes % 1.8 L Monocytes % 6.7 Eosinophils % 0.0 D Basophils % 0.2 - Medications Given in the ED: ED Medications Discontinued Medications Generic Name Dose Route Start Last Admin Trade Name Graemeq PRN Reason Stop Dose Admin Acetaminophen 650 mg 01/23/19 20:44 01/23/19 21:28 Tylenol - PO 01/23/19 20:45 650 mg ONCE ONE Administration Albuterol/Ipratropium 1 amp 01/23/19 21:57 01/23/19 22:08 Duoneb - NEB 01/23/19 21:58 1 amp ONCE ONE Administration Sodium Chloride 1,000 ml 01/23/19 19:22 01/23/19 20:45 Normal Saline - IV 01/23/19 19:23 1,000 ml ONCE ONE Administration Medical Decision Making - Medical Decision Making 01/23/19 22:24 68 yo male h/o lung ca with sob, anemia, couhg. differentia postobstructive pna , worsening ca, anemia. denies rectal bleed or dark stool. plan type and screen. ekg cxr duonebs. brewer admit for transfusion. will page dr pollack to discuss plan of care. 01/23/19 22:37 d/w dr fagan, would like pt transfused, also to cover for pna, post osbtructive. ordered one unit blood, zosyn, and duoneb 01/23/19 22:38 01/24/19 02:33 pt repeat EKG with aflutter, suddenly becamse more confused, worsening sob. focused Echo performed. overall good contractility, no rv dilation. small pericardial effusion. bilat lower extremity pocus dopplers performed, no proximal DVT bilaterlly. CTA ordered. however pt unwilling to lie flat for the study. ICU consulted for rapid heart rate, and hypotension. pt was given adenosine twice for possible SVT. did slow to 105, but suddenly becamse more tachycardic. transfusion started. and given one LIter normal saline bolus. accepted to ICU. 01/24/19 04:12 *DC/Admit/Observation/Transfer Diagnosis at time of Disposition: Encounter for blood transfusion, Anemia, Lung cancer, Dysrhythmia - Discharge Dispostion Decision to Admit order: Yes - Referrals - Patient Instructions - Post Discharge Activity
[2019-01-23] MEDS ORDERED: PIPERACILLIN/TAZOB 3.375 GM 3.375 GM in DEXTROSE 5%-WATER - 50 ML IVPB ONE (22:33)
--- NOTE | 2019-01-23 23:06 | PN ---
Teaching Attending Note Name of Resident: Otis Arteaga ATTENDING PHYSICIAN STATEMENT I saw and evaluated the patient. I reviewed the resident's note and discussed the case with the resident. I agree with the resident's findings and plan as documented. SUBJECTIVE: Patient is a 68 year old man with PMH of RUL squamous cell carcinoma (s/p chemotherapy with Carboplatin/Paclitexal), Bowel resection for obstruction, Elevated LFTs, Radiation therapy, ?Immunetherapy with Nevolumab, Tobacco use, Alcohol use, Chronic pain syndrome (followed at [facility] pain clinic) and Opioid dependence under the of Dr. Aviles who presents with fatigue lethargy and SOB. Was found to be anemic in office told to come to ER. Has right side chest pain. Denies fever, chills or cough chronic, but has constipation. Does have SOB and uses nebulizer at home with no relief. Also complains of right back shoulder pain which he has had for some time as well as urgency but no dysuria. FH of colon cancer (mother). OBJECTIVE: Alert Vital Signs Period Temp Pulse Resp BP Sys/Seo Pulse Ox Last 24 Hr 98.8 F 110 25 102/54 97 HEENT: No Jaundice, eye redness or discharge, PERRLA, EOMI. Normocephalic, atraumatic. External ears are normal and hearing is grossly intact. No nasal discharge. Neck: Supple, nontender. No palpable adenopathy or thyromegaly. No JVD Chest: Good effort. Wheezing. Diminished breath sounds in righ lung. Clear to auscultation and percussion. Heart: Regular. No S3, rub or murmur Abdomen: Not distended, soft, nontender and no HSM. No rebound or guarding. Normal bowel sounds. Ext: Peripheral pulses intact. Leg edema. Skin: Warm and dry. No petechiae, rash or ecchymosis. Neuro: Alert. Oriented x3. CN 2-12 grossly intact. Sensation grossly intact in all four extremities and DTR are symmetric. Psych: Appropriate mood and affect. Good insight. Home Medications Medication Instructions Recorded Acetaminophen 650 mg PO Q6H PRN 01/05/19 Docusate Sodium [Colace] 100 mg PO TID 01/05/19 Gabapentin 300 mg PO BID PRN 01/05/19 Oxycodone HCl 5 mg PO Q4H PRN 01/05/19 Pantoprazole Sodium [Protonix] 40 mg PO DAILY 01/05/19 Tamsulosin HCl 0.4 mg PO DAILY 01/05/19 Cannabidiol (Cbd) Extract 0.2 ml PO BID 01/06/19 Amoxicillin/Potassium Clav 1 each PO BID 7 Days #14 tablet 01/08/19 [Augmentin 875-125 Tablet] Ferrous Gluconate [Fergon -] 324 mg PO DAILY #30 tab 01/08/19 Guaifenesin Dm [Robitussin Dm -] 5 ml PO Q6H PRN #7 cup 01/08/19 Methadone [Dolophine -] 10 mg PO Q12H 01/08/19 Abnormal Lab Results 01/23/19 01/23/19 01/23/19 21:20 21:20 21:20 WBC 12.0 H RBC 2.71 L Hgb 7.9 L Hct 25.0 L MCHC 31.5 L RDW 17.4 H MPV 6.8 L Absolute Neuts (auto) 11.0 H Neutrophils % 91.3 H Neutrophils % (Manual) 95.0 H D Lymphocytes % 1.8 L Lymphocytes % (Manual) 2.0 L D Monocytes % (Manual) 2 L D Sodium 133 L Chloride 95 L Anion Gap 7 L Random Glucose 121 H Alkaline Phosphatase 254 H Albumin 2.3 L Crossmatch See Detail ASSESSMENT AND PLAN: 1. Lung cancer with symptomatic anemia/?Postobstructive pneumonia - Anemia likely partly due to cancer. Will rule out GI blood loss. Get serial stool guaiacs, reticulocyte count and iron studies. Plan is for transfusion of PRBC. In the future would benefit from Procrit therapy once iron replete. Has leukocytosis, tachycardia and is wheezing - was recently hospitalized for post- obstructive pneumonia and discharged on Augmentin. Pending sepsis workup results and CXR, will treat with IV vancomycin and Zosyn. Consult ID, Pulmonary and Oncology. EKG shows ?new onset atrial flutter with rate of [address]-T wave changes. Getting IV lopressor for rate control. Will get repeat EKG and troponin to rule out ACS, get ECHO (leg edema), leg doppler, TSH and consult cardiology. Will continue comprehensive care for all of patients comorbid conditions including miralax bid for constipation. Will monitor closely for signs of alcohol withdrawal. 2. Hypoalbuminemia - Possibly due to combined effects of malnutrition and inflammation associated with comorbid chronic conditions. Will ensure adequate dietary protein intake and also consult fastener technologist. 3. Tobacco Use Counseled on risks associated with tobacco use. We will provide patient all the necessary assistance to facilitate smoking cessation and prescribe Nicotine patch. 4. DVT prophylaxis - Lovenox 40 mg SQ q 24 hours. 5. Advance directives - Full code
[2019-01-23 23:18] LABS: ANISOCYTOSIS 2+
[2019-01-23 23:19] LABS: MACROCYTOSIS 2+; PLATELET ESTIMATE NORMAL
[2019-01-23] MEDS ORDERED: oxyCODONE HCL 5 MG TABLET PO ONE (23:42)
[2019-01-23] MEDS ORDERED: GABAPENTIN 300 MG CAPSULE (FP) PO ONE (23:42)
[2019-01-23] MEDS ORDERED: GABAPENTIN 100 MG CAPSULE (FP) ONE (23:47)
[2019-01-23] MEDS ORDERED: oxyCODONE HCL 5 MG TABLET ONE (23:47)
[2019-01-24] MEDS ORDERED: PIPERACILLIN/TAZOB 3.375 GM 3.375 GM/50 ML BAG IVPB ONE (00:26)
[2019-01-24 01:13] LABS: EPI CELLS 1.8 /HPF (0-5/HPF); HYALINE CASTS 1 /lpf (0-8); PH,URINE 6.5 (5.0-8.0); URINE APPEARANCE CLEAR; URINE BACTERIA 2.5 /hpf (NEGATIVE); URINE BILIRUBIN NEGATIVE (NEGATIVE); URINE COLOR YELLOW; URINE GLUCOSE (UA) NEGATIVE (NEGATIVE); URINE KETONE NEGATIVE (NEGATIVE); URINE LEUK ESTERASE TRACE (NEGATIVE); URINE NITRITE NEGATIVE (NEGATIVE); URINE PROTEIN NEGATIVE (NEGATIVE); URINE RBC 5 /hpf (0-4); URINE WBC 2 /hpf (0-5)
--- NOTE | 2019-01-24 01:57 | HP ---
CHIEF COMPLAINT: B/L leg edema and generalized weakness over the past 1 week, referred by Dr. Aviles for transfusion PCP: Rohan Graves HISTORY OF PRESENT ILLNESS: This is a 68 year old male with PMH significant for RUL squamous cell CA, diagnosed in August. He presents to the ER from Dr. Aviles's office after he was found to be anemic (H&H 7.9/250), and complains of B/L leg edema and generalized weakness over the past 1 week. He states that he was visiting Dr. Aviles for a regular follow up appointment for his CA, and was due to start new medication (as per Dr. Aviles's note on 01/10, he has completed his course of Carboplatin and Paclitaxel, due to start Keytruda). He was found to be anemic and was referred to [facility] for a blood transfusion. He states that the leg edema began gradually, over the past week, and he denies any associated trauma or recent illnesses. He also complains of urinary urgency and constipation, both of which began over the past week. He does not remember when he had his last bowel movement. He endorses subjective fevers over the past day, without any chills, diarrhea, dysuria, hematuria, nausea, vomiting, or diarrhea. He also complains of SOB, light headedness, dizziness, insomnia, and chest pain since his diagnosis in August. The chest pain is on the right side of his chest, 7/10 in intensity, described as a squeezing pain, constant in nature but varying in intensity, radiating to the posterior aspect of his right shoulder, with no recognizable aggravating or alleviating factors. He also complains of a productive cough with yellowish sputum for the past 5 months. He was recently discharged from [facility] on 01/08/19, he was admitted for post obstructive pneumonia and was treated with Zosyn, and discharged on a 1 week course of Augmentin. ER course was notable for: (1) WBC 12.0/ H&H 7.9/25.0 (2) Zosyn (3) PRBC x1 Recent Travel: None PAST MEDICAL HISTORY: RUL squamous cell CA PAST SURGICAL HISTORY: Bowel obstruction over 20 years ago 2018: hepatic surgery, patient not sure about the specifics Social History: Smoking: quit in August, smoked 3ppd for 40 years before then Alcohol: 10 beers several times per week Drugs: denies Family History: Mother had colon CA Allergies No Known Allergies Allergy (Verified 01/23/19 19:29) HOME MEDICATIONS: Home Medications Medication Instructions Recorded Acetaminophen 650 mg PO Q6H PRN 01/05/19 Docusate Sodium [Colace] 100 mg PO TID 01/05/19 Gabapentin 300 mg PO BID PRN 01/05/19 Oxycodone HCl 5 mg PO Q4H PRN 01/05/19 Pantoprazole Sodium [Protonix] 40 mg PO DAILY 01/05/19 Tamsulosin HCl 0.4 mg PO DAILY 01/05/19 Cannabidiol (Cbd) Extract 0.2 ml PO BID 01/06/19 Amoxicillin/Potassium Clav 1 each PO BID 7 Days #14 tablet 01/08/19 [Augmentin 875-125 Tablet] Ferrous Gluconate [Fergon -] 324 mg PO DAILY #30 tab 01/08/19 Guaifenesin Dm [Robitussin Dm -] 5 ml PO Q6H PRN #7 cup 01/08/19 Methadone [Dolophine -] 10 mg PO Q12H 01/08/19 REVIEW OF SYSTEMS CONSTITUTIONAL: fever Absent: fever, chills, diaphoresis, generalized weakness, malaise, loss of appetite, weight change HEENT: Absent: rhinorrhea, nasal congestion, throat pain, throat swelling, difficulty swallowing, mouth swelling, ear pain, eye pain, visual changes CARDIOVASCULAR: chest pain Absent: chest pain, syncope, palpitations, irregular heart rate, lightheadedness , peripheral edema RESPIRATORY: cough Absent: cough, shortness of breath, dyspnea with exertion, orthopnea, wheezing, stridor, hemoptysis GASTROINTESTINAL: constipation Absent: abdominal pain, abdominal distension, nausea, vomiting, diarrhea, constipation, melena, hematochezia GENITOURINARY: frequency Absent: dysuria, frequency, urgency, hesitancy, hematuria, flank pain, genital pain MUSCULOSKELETAL: Absent: myalgia, arthralgia, joint swelling, back pain, neck pain SKIN: Absent: rash, itching, pallor HEMATOLOGIC/IMMUNOLOGIC: Absent: easy bleeding, easy bruising, lymphadenopathy, frequent infections ENDOCRINE: Absent: unexplained weight gain, unexplained weight loss, heat intolerance, cold intolerance NEUROLOGIC: Absent: headache, focal weakness or paresthesias, dizziness, unsteady gait, seizure, mental status changes, bladder or bowel incontinence PSYCHIATRIC: Absent: anxiety, depression, suicidal or homicidal ideation, hallucinations. PHYSICAL EXAMINATION Vital Signs - 24 hr 01/23/19 19:27 Temperature 98.8 F Pulse Rate 110 H Respiratory 25 H Rate Blood Pressure 102/54 L O2 Sat by Pulse 97 Oximetry (%) GENERAL: Awake, alert, and fully oriented, in no acute distress. HEAD: Normal with no signs of trauma. EYES: Pupils equal, round and reactive to light, extraocular movements intact, sclera anicteric, conjunctiva clear. No lid lag. EARS, NOSE, THROAT: Ears normal, nares patent, oropharynx clear without exudates. Moist mucous membranes. NECK: Normal range of motion, supple without lymphadenopathy, JVD, or masses. LUNGS: decreased air entry on the right, expiratory wheeze B/L HEART: elevated rate, regular rhythm, normal S1 and S2 without murmur, rub or gallop. ABDOMEN: Soft, nontender, not distended, normoactive bowel sounds, no guarding, no rebound, no masses. No hepatomegaly or splenomegaly. MUSCULOSKELETAL: Normal range of motion at all joints. No bony deformities or tenderness. No CVA tenderness. UPPER EXTREMITIES: 2+ pulses, warm, well-perfused. No cyanosis. No clubbing. No peripheral edema. LOWER EXTREMITIES: B/L pitting edema 2+, more on the right NEUROLOGICAL: Cranial nerves II-XII intact. Normal speech. Normal gait. PSYCHIATRIC: Cooperative. Good eye contact. Appropriate mood and affect. SKIN: Warm, dry, normal turgor, no rashes or lesions noted, normal capillary refill. Laboratory Results - last 24 hr 01/23/19 01/23/19 01/23/19 21:20 21:20 21:20 WBC 12.0 H RBC 2.71 L Hgb 7.9 L Hct 25.0 L MCV 92.3 MCH 29.1 MCHC 31.5 L RDW 17.4 H Plt Count 200 MPV 6.8 L Absolute Neuts (auto) 11.0 H Neutrophils % 91.3 H Neutrophils % (Manual) 95.0 H D Band Neutrophils % 1.0 Lymphocytes % 1.8 L Lymphocytes % (Manual) 2.0 L D Monocytes % 6.7 Monocytes % (Manual) 2 L D Eosinophils % 0.0 D Basophils % 0.2 Nucleated RBC % 0 Hypochromia 1+ Platelet Estimate Normal Platelet Comment No clumping noted Anisocytosis 2+ Microcytosis 1+ Macrocytosis 2+ Sodium 133 L Potassium 3.7 Chloride 95 L Carbon Dioxide 31 Anion Gap 7 L BUN 10.2 Creatinine 0.6 Est GFR (CKD-EPI)AfAm 119.74 Est GFR (CKD-EPI)NonAf 103.31 Random Glucose 121 H Calcium 8.8 Total Bilirubin 0.6 AST 23 ALT 27 Alkaline Phosphatase 254 H Total Protein 6.4 Albumin 2.3 L Urine Color Urine Appearance Urine pH Ur Specific [place] Urine Protein Urine Glucose (UA) Urine Ketones Urine Blood Urine Nitrite Urine Bilirubin Urine Urobilinogen Ur Leukocyte Esterase Urine WBC (Auto) Urine RBC (Auto) Urine Casts (Auto) U Epithel Cells (Auto) Urine Bacteria (Auto) Blood Type A POSITIVE Antibody Screen Negative Crossmatch See Detail 01/23/19 01/24/19 23:50 00:50 WBC RBC Hgb Hct MCV MCH MCHC RDW Plt Count MPV Absolute Neuts (auto) Neutrophils % Neutrophils % (Manual) Band Neutrophils % Lymphocytes % Lymphocytes % (Manual) Monocytes % Monocytes % (Manual) Eosinophils % Basophils % Nucleated RBC % Hypochromia Platelet Estimate Platelet Comment Anisocytosis Microcytosis Macrocytosis Sodium Potassium Chloride Carbon Dioxide Anion Gap BUN Creatinine Est GFR (CKD-EPI)AfAm Est GFR (CKD-EPI)NonAf Random Glucose Calcium Total Bilirubin AST ALT Alkaline Phosphatase Total Protein Albumin Urine Color Yellow Urine Appearance Clear Urine pH 6.5 Ur Specific [place] 1.017 Urine Protein Negative Urine Glucose (UA) Negative Urine Ketones Negative Urine Blood Trace Urine Nitrite Negative Urine Bilirubin Negative Urine Urobilinogen 2.0 Ur Leukocyte Esterase Trace Urine WBC (Auto) 2 Urine RBC (Auto) 5 Urine Casts (Auto) 1 U Epithel Cells (Auto) 1.8 Urine Bacteria (Auto) 2.5 Blood Type A POSITIVE Antibody Screen Crossmatch ASSESSMENT/PLAN: This is a 68 year old male with PMH significant for RUL squamous cell CA, diagnosed in August. He presents to the ER from Dr. Aviles's office after he was found to be anemic (H&H 7.9/250), and complains of B/L leg edema and generalized weakness over the past 1 week. #Sepsis 2/2 possible postobstructive pneumonia - WBC 12.0, HR 110-160, B/L wheezing - CXR report pending - Blood, urine, sputum, legionella cx ordered - Zosyn and Vancomycin ordered - ID consult placed #A Flutter new onset - HR in 160-170s - Given Adenosine 6mg and then 12mg -> Lopressor 5mg -> cardioverted, HR came down to 100 - Admitted to ICU - Cardio (Dr. Hudson) consult placed #B/L leg edema - May be lymphedema 2/2 antineoplastics, DVT unlikely because swelling is B/L, no calf tenderness - Echo ordered to check for underlying cardiac pathology - Duplex lower extremity ordered #RUL Sq cell CA - Onco consult placed (Dr. Velazquez) - Continue home meds for pain (Oxycdone 10mg) #Anemia - H&H 7.9/25.0 - PRBC 1x transfused - FOBT ordered #FEN - N/S - Mg, Phos ordered - Regular diet #DVT PE - Lovenox 40mg Visit type - Emergency Visit Emergency Visit: Yes ED Registration Date: 01/23/19 Care time: The patient presented to the Emergency Department on the above date and was hospitalized for further evaluation of their emergent condition. - New Patient This patient is new to me today: Yes Date on this admission: 01/24/19 - Critical Care Critical Care patient: No ATTENDING PHYSICIAN STATEMENT I saw and evaluated the patient. I reviewed the resident's note and discussed the case with the resident. I agree with the resident's findings and plan as documented. SUBJECTIVE: OBJECTIVE: ASSESSMENT AND PLAN:
[2019-01-24] MEDS ORDERED: SODIUM CHLORIDE 0.9% 1000 ML INFUS.BAG IV ONE (02:27)
[2019-01-24] MEDS ORDERED: METOPROLOL TARTRATE 5 MG/5 ML VIAL IVPUSH ONE ×2 (02:40→09:45)
[2019-01-24] MEDS ORDERED: VANCOMYCIN 1 GM in D5W (PRE-DOCKED) 1,000 MG/250 ML IVPB ONE (02:45)
[2019-01-24] MEDS ORDERED: ADENOSINE 6 MG/2 ML VIAL IVPUSH ONE ×4 (03:55→04:03)
--- NOTE | 2019-01-24 04:40 | CONSULT ---
Consultation: REQUESTING PROVIDER: CONSULT REQUEST: We have been asked to medically evaluate this patient for SVT mgmt. HISTORY OF PRESENT ILLNESS: 68 y/o M with PMH of RUL squamous cell carcinoma (s/p chemotherapy with Carboplatinum/Paclitexal. to start Keytruda), Bowel resection for obstruction, elevated LFTs, Radiation therapy, ?Immunotherapy with Nivolumab, Tobacco use, Alcohol use, Chronic pain syndrome (followed at [facility] pain clinic) and Opioid dependence under the of Dr. Aviles who presents with fatigue lethargy, SOB , LE edema over the past week. Pt was seen by Dr. Aviles and was told to come to [facility] for blood transfusion d/t his sx. His Hb is currently at his baseline ~7.9. While in the ER, he received gabapentin and roxicodone 10mg x 1 for pain. While in the ER, once he was receiving his 1U PRBC, IVF, he went into SVT with rate in 150's. C/o palpitations, but was w/o chest pain. Vagal manuever, carotid massage without success. Went on to receive adenosine 6mg IVP, 12 mg IVP, and lopressor 5mg IVP, with HR still in 140-150's and BP ranging between 95/60-110/ 60. Was subsequently DC cardioverted w/ 50J and returned to R. Pt transferred to ICU for close cardiac monitoring, post SVT cardioversion. Of note, pt was recently tx at [facility] for post-obstructive PNA with vanc, zosyn and d/c home on augmentin. Today, with cont'd dry cough and chest discomfort/ tightness. Has maintained 02 sat. REVIEW OF SYSTEMS: +chest discomfort +palpitations +SVT +LE edema PHYSICAL EXAMINATION Vital Signs 01/24/19 01/24/19 01/24/19 03:48 04:05 04:09 Temperature 98.5 F Pulse Rate Pulse Rate [ 142 H 135 H 148 H Right Radial] Respiratory 20 20 22 H Rate Blood Pressure Blood Pressure 92/58 L 120/57 L 98/57 L [Left Arm] O2 Sat by Pulse 99 100 100 Oximetry (%) 01/24/19 01/24/19 04:22 04:26 Temperature Pulse Rate Pulse Rate [ 145 H 145 H Right Radial] Respiratory 20 22 H Rate Blood Pressure 109/70 Blood Pressure 118/69 100/65 [Left Arm] O2 Sat by Pulse 100 100 Oximetry (%) GENERAL: Resting in bed. c/o palpitations HEAD: Normal with no signs of trauma. EYES: Pupils equal, round and reactive to light, extraocular movements intact, sclera anicteric, conjunctiva clear. No lid lag. EARS, NOSE, THROAT: Ears normal, nares patent, oropharynx clear without exudates. Dry mucous membranes NECK: Normal range of motion, supple LUNGS: +diminished breath sounds (R>L) HEART: +tachycardic rate and rhythm, normal S1 and S2 without murmur, rub or gallop. ABDOMEN: Soft, nontender, not distended, normoactive bowel sounds, no guarding, no rebound LOWER EXTREMITIES: 2+ pt pulses, warm, well-perfused. No calf tenderness. 1+ pitting edema b/l NEUROLOGICAL: Cranial nerves II-XII intact. Laboratory Tests 01/23/19 01/23/19 01/24/19 21:20 21:20 00:50 WBC 12.0 H Hgb 7.9 L Hct 25.0 L Plt Count 200 Sodium 133 L Potassium 3.7 Chloride 95 L Carbon Dioxide 31 BUN 10.2 Creatinine 0.6 Alkaline Phosphatase 254 H Urine Nitrite Negative Urine Bilirubin Negative Urine Urobilinogen 2.0 Ur Leukocyte Esterase Trace Urine WBC (Auto) 2 Urine RBC (Auto) 5 ASSESSMENT/PLAN: 68 y/o M with PMH of RUL squamous cell carcinoma (s/p chemotherapy with Carboplatinum/Paclitexal. to start Keytruda), Bowel resection for obstruction, elevated LFTs, Radiation therapy, ?Immunotherapy with Nevolumab, Tobacco use, Alcohol use, Chronic pain syndrome (followed at [facility] pain clinic) and Opioid dependence under the of Dr. Aviles who presents with fatigue lethargy, SOB , LE edema over the past week. Pt transferred to ICU for close cardiac monitoring, post SVT cardioversion. Neuro -AAOx 3 Cardio #s/p SVT DC cardioversion -may have occurred 2/2 SOB, anemia. SVT is common in CA patients -need to determine structure of heart, pending ECHO -currently controlled; NSR. rate 110's -s/p adenosine 6, 12 IVP, lopressor 5mg -converted to sinus after DC cardio 50J -if recurs, will give amio bolus and start on amio gtt. -monitor lytes. K>4, Mg>2 Pulm #Lung CA with possible post-obstructive PNA -recently hospitalized. will c/w vanc, zosyn for HCAP -f/u blood cx, ucx, UA, legionella Ag -c/w IS -f/u CXR -ID consult: Dr. Bear Dozier #Chronic anemia likely 2/2 Lung CA -c/t monitor H/H. without active bleeding currently -receiving 1 U PRBC. monitor post transfusion CBC (8am) Onc #Lung CA (R Sq cell Carcinoma) -s/p chemo with Carboplatinum, Paclitaxel -?Immunotherapy with Nivolumab -c/w onc f/u: Dr. Aviles Vas #LE edema -f/u duplex LE #F/E/N IV NS 75 cc/hr; currently dry. assess for overload continue to follow lytes reg diet #PPX DVT: on lovenox Dispo: We will continue to follow the patient. Thank you for this consultative opportunity. Visit type - Emergency Visit Emergency Visit: Yes ED Registration Date: 01/23/19 Care time: The patient presented to the Emergency Department on the above date and was hospitalized for further evaluation of their emergent condition. - New Patient This patient is new to me today: Yes Date on this admission: 01/24/19 - Critical Care Critical Care patient: Yes Total Critical Care Time (in minutes): 45 Critical Care Statement: The care of this patient involved high complexity decision making to prevent further life threatening deterioration of the patient 's condition and/or to evaluate & treat vital organ system(s) failure or risk of failure.
[2019-01-24] MEDS ORDERED: SODIUM CHLORIDE 1,000 ML IV SCH ×2 (04:45→05:22)
[2019-01-24] MEDS ORDERED: PIPERACILLIN/TAZOB 3.375 GM 3.375 GM in DEXTROSE 5%-WATER - 50 ML IVPB SCH ×2 (06:00→18:00)
[2019-01-24] MEDS ORDERED: DEXTROSE 5%-WATER - 50 ML IVPB ONE ×2 (06:10→09:51)
[2019-01-24] MEDS ORDERED: PIPERACILLIN/TAZOBACTAM 3.375 GM VIAL IVPB ONE ×2 (06:10→09:51)
--- NOTE | 2019-01-24 08:11 | CONSULT ---
Consultation: REQUESTING PROVIDER: Dr. Chapin CONSULT REQUEST: We have been asked to medically evaluate this patient for squamous cell lung CA HISTORY OF PRESENT ILLNESS: 68 year old male with a history of right sided squamous cell carcinoma presented to the hospital from Dr. Aviles's office for a blood transfusion after followup labs on 01/19 showed hgb 7.4 (baseline hgb ~9-11 in the hospital). Patient complained of fatigue, lethargy and increased lower extremity edema. While receiving the transfusion in the ED, patient was noted to have palpitations and found to have supraventricular tachycardia with a rate of 150. He was given adenosine and carotid massage without any alleviation. He was transferred to the ICU for further care. He was given a low dose BB, which appeared to control his rate. Currently, the patient is mildly confused and does not remember much of his recent history. He reports productive cough but denies chest pain, shortness of breath, nausea, vomiting, diarrhea, fevers, chills, hematochezia or melena. Of note, he recently started nivolumab on with Dr. Aviles. Oncologic History -06/01/18: CT chest showing irregular cavitary mass in RUL bronchis and apical, anterior and posterior RUL abutting R mediastinum -06/13/18: PET scan hypermetabolic malignancy in RUL extending into R hilum and mediastinum, hypermetabolic R hilar and paratracheal nodes, increased FDG activity in prostate gland -07/04/18: surgical path from bronchoscopy showed invasive squamous carcinoma moderately to poorly differentiated -07/30/18: no metastatic disease -08/08/18: diagnosis of squamous cell carcinoma of right lung -08/10/18: chemotherapy with carboplatin and paclitaxel, ended on 09/26/18 -01/12/19: began nivolumab therapy, received 1 dose Smokin pack/year smoker, smoked 50 years 1.5 packs per day Alcohol: occasional alcohol use Drugs: none Surgical History: Bowel resection for bowel obstruction Family History: cancer in the father REVIEW OF SYSTEMS: CONSTITUTIONAL: Absent: fever, chills, diaphoresis, generalized weakness, malaise, loss of appetite, weight change HEENT: Absent: rhinorrhea, nasal congestion, throat pain, throat swelling, difficulty swallowing, mouth swelling, ear pain, eye pain, visual changes CARDIOVASCULAR: Absent: chest pain, syncope, palpitations, irregular heart rate, lightheadedness , peripheral edema RESPIRATORY: cough Absent: shortness of breath, dyspnea with exertion, orthopnea, wheezing, stridor , hemoptysis GASTROINTESTINAL: Absent: abdominal pain, abdominal distension, nausea, vomiting, diarrhea, constipation, melena, hematochezia GENITOURINARY: Absent: dysuria, frequency, urgency, hesitancy, hematuria, flank pain, genital pain MUSCULOSKELETAL: Absent: myalgia, arthralgia, joint swelling, back pain, neck pain SKIN: Absent: rash, itching, pallor HEMATOLOGIC/IMMUNOLOGIC: Absent: easy bleeding, easy bruising, lymphadenopathy, frequent infections ENDOCRINE: Absent: unexplained weight gain, unexplained weight loss, heat intolerance, cold intolerance NEUROLOGIC: Absent: headache, focal weakness or paresthesias, dizziness, unsteady gait, seizure, mental status changes, bladder or bowel incontinence PSYCHIATRIC: Absent: anxiety, depression, suicidal or homicidal ideation, hallucinations. PHYSICAL EXAMINATION Vital Signs - 24 hr 01/23/19 01/23/19 01/23/19 19:27 20:05 22:38 Temperature 98.8 F 97.8 F Pulse Rate 110 H 110 H Pulse Rate [ Right Radial] Respiratory 25 H 19 Rate Blood Pressure 102/54 L 108/71 Blood Pressure [Left Arm] O2 Sat by Pulse 97 97 Oximetry (%) 01/24/19 01/24/19 01/24/19 02:15 03:48 04:05 Temperature 98.1 F 98.5 F Pulse Rate Pulse Rate [ 120 H 142 H 135 H Right Radial] Respiratory 20 20 20 Rate Blood Pressure Blood Pressure 102/67 92/58 L 120/57 L [Left Arm] O2 Sat by Pulse 100 99 100 Oximetry (%) 01/24/19 01/24/19 01/24/19 04:09 04:22 04:26 Temperature Pulse Rate Pulse Rate [ 148 H 145 H 145 H Right Radial] Respiratory 22 H 20 22 H Rate Blood Pressure 109/70 Blood Pressure 98/57 L 118/69 100/65 [Left Arm] O2 Sat by Pulse 100 100 100 Oximetry (%) 01/24/19 06:00 Temperature Pulse Rate Pulse Rate [ Right Radial] Respiratory Rate Blood Pressure Blood Pressure [Left Arm] O2 Sat by Pulse 100 Oximetry (%) GENERAL: A&Ox3, no acute distress EYES: PERRLA, EOMI ENT: Moist mucus membranes NECK: No JVD BREAST: no masses or lesions noted on exam LUNGS: decreased breath sounds RUL, no crackles or wheezes noted HEART: mildly tachycardic, no murmurs ABDOMEN: Soft, nontender, BS present MUSCULOSKELETAL: No CVA Tenderness EXTREMITIES: 2+ pulses, no edema. NEUROLOGICAL: Cranial nerves II-XII intact. Laboratory Results - last 24 hr 01/23/19 01/23/19 01/23/19 21:20 21:20 21:20 WBC 12.0 H RBC 2.71 L Hgb 7.9 L Hct 25.0 L MCV 92.3 MCH 29.1 MCHC 31.5 L RDW 17.4 H Plt Count 200 MPV 6.8 L Absolute Neuts (auto) 11.0 H Neutrophils % 91.3 H Neutrophils % (Manual) 95.0 H D Band Neutrophils % 1.0 Lymphocytes % 1.8 L Lymphocytes % (Manual) 2.0 L D Monocytes % 6.7 Monocytes % (Manual) 2 L D Eosinophils % 0.0 D Basophils % 0.2 Nucleated RBC % 0 Hypochromia 1+ Platelet Estimate Normal Platelet Comment No clumping noted Anisocytosis 2+ Microcytosis 1+ Macrocytosis 2+ Sodium 133 L Potassium 3.7 Chloride 95 L Carbon Dioxide 31 Anion Gap 7 L BUN 10.2 Creatinine 0.6 Est GFR (CKD-EPI)AfAm 119.74 Est GFR (CKD-EPI)NonAf 103.31 Random Glucose 121 H Calcium 8.8 Total Bilirubin 0.6 AST 23 ALT 27 Alkaline Phosphatase 254 H Total Protein 6.4 Albumin 2.3 L Urine Color Urine Appearance Urine pH Ur Specific [place] Urine Protein Urine Glucose (UA) Urine Ketones Urine Blood Urine Nitrite Urine Bilirubin Urine Urobilinogen Ur Leukocyte Esterase Urine WBC (Auto) Urine RBC (Auto) Urine Casts (Auto) U Epithel Cells (Auto) Urine Bacteria (Auto) Blood Type A POSITIVE Antibody Screen Negative Crossmatch See Detail 01/23/19 01/24/19 23:50 00:50 WBC RBC Hgb Hct MCV MCH MCHC RDW Plt Count MPV Absolute Neuts (auto) Neutrophils % Neutrophils % (Manual) Band Neutrophils % Lymphocytes % Lymphocytes % (Manual) Monocytes % Monocytes % (Manual) Eosinophils % Basophils % Nucleated RBC % Hypochromia Platelet Estimate Platelet Comment Anisocytosis Microcytosis Macrocytosis Sodium Potassium Chloride Carbon Dioxide Anion Gap BUN Creatinine Est GFR (CKD-EPI)AfAm Est GFR (CKD-EPI)NonAf Random Glucose Calcium Total Bilirubin AST ALT Alkaline Phosphatase Total Protein Albumin Urine Color Yellow Urine Appearance Clear Urine pH 6.5 Ur Specific [place] 1.017 Urine Protein Negative Urine Glucose (UA) Negative Urine Ketones Negative Urine Blood Trace Urine Nitrite Negative Urine Bilirubin Negative Urine Urobilinogen 2.0 Ur Leukocyte Esterase Trace Urine WBC (Auto) 2 Urine RBC (Auto) 5 Urine Casts (Auto) 1 U Epithel Cells (Auto) 1.8 Urine Bacteria (Auto) 2.5 Blood Type A POSITIVE Antibody Screen Crossmatch Active Medications Generic Name Dose Route Start Last Admin Trade Name Freq PRN Reason Stop Dose Admin Chlorhexidine Gluconate 1 applic 01/24/19 22:00 Hibiclens For Decolonization - TP HS SHIRA Docusate Sodium 300 mg 01/24/19 22:00 Colace - PO HS SHIRA Enoxaparin Sodium 40 mg 01/24/19 10:00 Lovenox - SQ DAILY SHIRA Piperacillin Sod/Tazobactam 50 mls @ 100 mls/hr 01/24/19 06:00 Sod 3.375 gm/ Dextrose IVPB Q8H-IV SHIRA Protocol Sodium Chloride 1,000 mls @ 75 mls/hr 01/24/19 05:22 01/24/19 06:20 Normal Saline - IV 75 mls/hr ASDIR SHIRA Administration Mupirocin 1 applic 01/24/19 10:00 Bactroban Ointment (For Decolonization) - NS 01/29/19 09:59 BID SHIRA Polyethylene Glycol 17 gm 01/24/19 10:00 Miralax (For Daily Use) - PO BID [facility] ASSESSMENT/PLAN: 68 year old male with a history of right sided squamous cell carcinoma presented to the hospital from Dr. Aviles's office for a blood transfusion ( baseline hgb ~8 in the hospital). #Anemia #RUL Squamous Cell Carcinoma #SVT #Anemia: hemoglobin improved from 7.9 to 9.2 after 1 U PRBCs -continue to monitor with transfusion threshold of 8 -repeat CBC in the morning #RUL Squamous Cell Carcinoma: s/p nivolumab therapy in the office on 01/12/19 -will follow in the office #Supraventricular Tachycardia: appears to have resolved, can occur in patients with CA -continue to monitor on tele -management per primary/cardiology Florentin Rebolledo, PGY3 Discussed with Dr. Aviles Visit type - Emergency Visit Emergency Visit: No - New Patient This patient is new to me today: Yes Date on this admission: 01/24/19 - Critical Care Critical Care patient: No ATTENDING PHYSICIAN STATEMENT I saw and evaluated the patient. I reviewed the resident's note and discussed the case with the resident. I agree with the resident's findings and plan as documented. SUBJECTIVE: OBJECTIVE: ASSESSMENT AND PLAN:
[2019-01-24] MEDS: ENOXAPARIN NA (PORCINE) 40 MG/0.4 ML DISP.SYRIN SQ SCH ×2 (09:55→10:10)
[2019-01-24] MEDS ORDERED: MUPIROCIN 2% TOPICAL OINTMENT FOR DECOLONIZATION NS SCH (10:00)
[2019-01-24] MEDS ORDERED: POLYETHYLENE GLYCOL 3350 119 GM BTL PO SCH (10:00)
[2019-01-24 10:22] LABS: BASO % 0.5 % (0-2.0); HEMATOCRIT 27.7 % (35.4-49); HEMOGLOBIN 9.1 GM/dL (11.7-16.9); LYMPH % 1.5 % (8-40); MCH 29.7 pg (25.7-33.7); MCHC 32.8 g/dl (32.0-35.9); MEAN CELL VOLUME 90.7 fl (80-96); MEAN PLT VOLUME 7.1 fl (7.5-11.1); MONO % 5.4 % (3.8-10.2); NEUT % 92.6 % (42.8-82.8); PLATELET COUNT 180 K/MM3 (134-434); RBC 3.06 M/mm3 (4.00-5.60); RDW 16.8 % (11.9-15.9)
--- NOTE | 2019-01-24 10:45 | EKG ---
Test Reason : Blood Pressure : / mmHG Vent. Rate : 138 BPM Atrial Rate : 276 BPM P-R Int : 000 ms QRS Dur : 080 ms QT Int : 358 ms P-R-T Axes : 000 025 024 degrees QTc Int : 542 ms ATRIAL FLUTTER WITH 2:1 A-V CONDUCTION NONSPECIFIC ST ABNORMALITY ABNORMAL ECG WHEN COMPARED WITH ECG OF 06-JAN-2019 03:04, ATRIAL FLUTTER HAS REPLACED SINUS RHYTHM VENT. RATE HAS INCREASED BY 49 BPM Confirmed by MD Ian, Reynaldo ([id number]) on 01/24/2019 10:45:24 AM Referred By: Confirmed By:Reynaldo Sosa MD
--- NOTE | 2019-01-24 10:45 | EKG ---
Test Reason : Blood Pressure : / mmHG Vent. Rate : 104 BPM Atrial Rate : 104 BPM P-R Int : 156 ms QRS Dur : 082 ms QT Int : 340 ms P-R-T Axes : 042 011 040 degrees QTc Int : 447 ms SINUS TACHYCARDIA WITH PREMATURE ATRIAL COMPLEXES POSSIBLE LEFT ATRIAL ENLARGEMENT BORDERLINE ECG WHEN COMPARED WITH ECG OF 24-JAN-2019 03:12, PREMATURE ATRIAL COMPLEXES ARE NOW PRESENT Confirmed by MD Ian, Reynaldo ([id number]) on 01/24/2019 10:44:24 AM Referred By: Confirmed By:Reynaldo Sosa MD
[2019-01-24 10:59] LABS: ALBUMIN 2.1 g/dl (3.4-5.0); BILIRUBIN,TOTAL 1.7 mg/dL (0.2-1); BLOOD UREA NITROGEN 8.1 mg/dL (7-18); CALCIUM 8.3 mg/dL (8.5-10.1); CREATININE 0.5 mg/dL (0.55-1.3); PHOSPHOROUS 3.2 mg/dL (2.5-4.9); POTASSIUM 3.7 mmol/L (3.5-5.1); TOT PROT 5.8 g/dl (6.4-8.2)
[2019-01-24] MEDS ORDERED: LORazepam 2 MG/ML SDV VIAL IVPUSH ONE (11:15)
[2019-01-24] MEDS ORDERED: LORazepam 2 MG/ML SDV VIAL ONE (11:16)
[2019-01-24] MEDS ORDERED: oxyCODONE HCL 5 MG TABLET PO PRN ×2 (12:09→17:53)
[2019-01-24] MEDS ORDERED: GABAPENTIN 300 MG CAPSULE (FP) PO PRN (12:09)
--- NOTE | 2019-01-24 12:13 | PN ---
Teaching Attending Note Name of Resident: Nick Syed ATTENDING PHYSICIAN STATEMENT I saw and evaluated the patient. I reviewed the resident's note and discussed the case with the resident. I agree with the resident's findings and plan as documented. SUBJECTIVE: Pt seen and examined in the ICU. s/p DCCV now in sinus tachycardia. Agitated but redirectable. OBJECTIVE: Vital Signs Period Temp Pulse Resp BP Sys/Seo Pulse Ox Last 24 Hr 97.8 F-98.8 F 110-148 19-25 92-144/54-78 97-100 Intake & Output 01/21/19 01/22/19 01/23/19 01/24/19 23:59 23:59 23:59 23:59 Intake Total 845 Output Total 300 Balance 545 Weight 55.792 kg Gen: slightly agitated Heart: tachycardic, regular Lung: decreased breath sounds at the bases Abd: soft, nontender Ext: no edema CBC, BMP 01/24/19 09:35 01/24/19 09:35 Active Medications Chlorhexidine Gluconate (Hibiclens For Decolonization -) 1 applic TP HS SHIRA Docusate Sodium (Colace -) 300 mg PO HS SHIRA Enoxaparin Sodium (Lovenox -) 40 mg SQ DAILY [facility] Last Admin: 01/24/19 10:10 Dose: Not Given Sodium Chloride (Normal Saline -) 1,000 mls @ 75 mls/hr IV ASDIR SHIRA Last Admin: 01/24/19 06:20 Dose: 75 mls/hr Piperacillin Sod/Tazobactam (Sod 3.375 gm/ Dextrose) 50 mls @ 100 mls/hr IVPB Q8H-IV SHIRA; Protocol Metoprolol Tartrate (Lopressor Injection -) 5 mg IVPUSH ONCE ONE Stop: 01/24/19 09:46 Last Admin: 01/24/19 10:05 Dose: 5 mg Mupirocin (Bactroban Ointment (For Decolonization) -) 1 applic NS BID SHIRA Stop: 01/29/19 09:59 Last Admin: 01/24/19 09:56 Dose: 1 applic Polyethylene Glycol (Miralax (For Daily Use) -) 17 gm PO BID SHIRA Last Admin: 01/24/19 10:06 Dose: 17 gm ASSESSMENT AND PLAN: SVT s/p DCCV Advanced NSCLC (Squamous cell) s/p chemo Chronic Pain/Methadone Maintenance Anemia Smoker - rate control - resume methadone/home opiate dose - IVF - CXR unchanged, no fevers/leukocytosis, can likely d/c antibiotics in AM if cultures negative - monitor H/H - transfuse as needed - DVT prophylaxis - can monitor on telemetry
[2019-01-24] MEDS ORDERED: METHADONE HCL 10 MG TABLET PO SCH (12:15)
--- NOTE | 2019-01-24 12:18 | CONS ---
INFECTIOUS DISEASE CONSULTATION DATE OF CONSULTATION: DATE OF DICTATION: 01/24/2019 HISTORY: The patient is a 68-year-old male who was evaluated for pneumonia. 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 He was hospitalized at [facility] from March 07 through May 10 with pneumonia. He was empirically treated with Zithromax and switched to Augmentin. He was seen in follow up by his oncologist on January 24, 2019. At that time, he was noted to be anemic and was referred to the emergency room for blood transfusion. He complained of generalized weakness and lower extremity edema. In addition, the patient had complaints of subjective fever, urinary urgency, constipation, dyspnea, and chest pain. He also has a chronic cough productive of yellowish sputum. In the emergency room, he was transfused packed red blood cells for his anemia. His course was complicated by atrial flutter requiring admission to the ICU and placement on adenosine. At the present time, he is awake. He is confused. He is ambulatory and in no acute distress. His breathing is nonlabored. He is not coughing. Cultures are pending. PAST MEDICAL HISTORY: Positive for squamous cell carcinoma with cavitary right upper lobe lung lesion, status post chemotherapy in August 2018, radiation therapy, and immunotherapy. ALLERGIES: No known allergies. MEDICATIONS: At the present time include Zosyn, vancomycin, adenosine, albuterol, Neurontin, metoprolol, oxycodone. SOCIAL HISTORY: He resides at home in the community. He is a former smoker. SYSTEMS REVIEW: Neurologic: Positive for confusion. Cardiac: As per HPI. Respiratory: Positive for squamous cell carcinoma of the lung. Gastrointestinal: Negative vomiting or diarrhea. Genitourinary: Negative for urinary tract infection. LABORATORY DATA: White count 12.0, hematocrit 27.7, platelet count 180, creatinine 0.6. Urinalysis: 2 white cells. Chest x-ray shows cavitary mass-like density right upper lobe with atelectatic changes and early infiltrate. PHYSICAL EXAMINATION: General: On exam, he is awake but confused. He is ambulatory, cachectic. Vital Signs: Temperature 98.3, blood pressure 122/68, pulse 127 regular, respirations 25 per minute. HEENT: Sclerae anicteric. Heart: Sounds S1, S2. Lungs: Scattered rhonchi. Abdomen: Soft and nontender. Extremities: Positive for edema. IMPRESSION: 1. Symptomatic anemia. 2. Cavitary right upper lobe squamous cell carcinoma of the lung, rule out postoperative pneumonia. 3. Toxic metabolic encephalopathy. PLAN: Continue Zosyn for treatment of presumed postoperative pneumonia. Would obtain CAT scan of the head in light of altered mentation to rule out brain metastases. Continue ICU monitoring. Obtain sputum culture. Urine Legionella and pneumococcal antigen. We will follow. Thank you for the kind referral. HUMBERTO TOMLINSON M.D. [id number]
[2019-01-24 12:29] LABS: ANISOCYTOSIS 0; MACROCYTOSIS 0; OVALOCYTE 1+; PLATELET ESTIMATE NORMAL
--- NOTE | 2019-01-24 12:49 | PN ---
Progress Note (short form) - Note Progress Note: ID CONSULT DICTATED R/O POST OBSTRUCTIVE PNEUMONIA TOXIC METABOLIC ENCEPHALOPATHY AWAIT C/S CONTINUE EMPIRIC ZOSYN
--- NOTE | 2019-01-24 13:04 | PN ---
Physical Exam: SUBJECTIVE: Patient seen and examined at bedside. Patient agitated not fully participating in assessment. Was transfused 1 unit PRBC overnight. Patient endorses chronic pain. Denies chest pain. Limited ROS. OBJECTIVE: Vital Signs Period Temp Pulse Resp BP Sys/Seo Pulse Ox Last 24 Hr 97.8 F-98.8 F 110-148 19-25 92-144/54-78 97-100 GEN: NAD, AAOx3 HEENT: NC/AT, Normal voice. Supple neck w/ FROM. CV: S1/S2, RRR, no m/r/g LUNG: CTAB, no wheezes, crackles, rales, rhonchi. GI: soft, ndnt, +BS, no guarding, no rebound. No masses. EXTREMITIES: 2+ pitting edema of the RLE. SKIN: warm, dry, normal turgor PSYCH: agitated but AAOx3. NEURO: Moving all extremities well. Laboratory Results - last 24 hr 01/23/19 01/23/19 01/23/19 21:20 21:20 21:20 WBC 12.0 H RBC 2.71 L Hgb 7.9 L Hct 25.0 L MCV 92.3 MCH 29.1 MCHC 31.5 L RDW 17.4 H Plt Count 200 MPV 6.8 L Absolute Neuts (auto) 11.0 H Neutrophils % 91.3 H Neutrophils % (Manual) 95.0 H D Band Neutrophils % 1.0 Lymphocytes % 1.8 L Lymphocytes % (Manual) 2.0 L D Monocytes % 6.7 Monocytes % (Manual) 2 L D Eosinophils % 0.0 D Eosinophils % (Manual) Basophils % 0.2 Basophils % (Manual) Myelocytes % (Man) Promyelocytes % (Man) Blast Cells % (Manual) Nucleated RBC % 0 Metamyelocytes Hypochromia 1+ Platelet Estimate Normal Platelet Comment No clumping noted Polychromasia Poikilocytosis Anisocytosis 2+ Microcytosis 1+ Macrocytosis 2+ Ovalocytes Schistocytes Sodium 133 L Potassium 3.7 Chloride 95 L Carbon Dioxide 31 Anion Gap 7 L BUN 10.2 Creatinine 0.6 Est GFR (CKD-EPI)AfAm 119.74 Est GFR (CKD-EPI)NonAf 103.31 Random Glucose 121 H Calcium 8.8 Phosphorus Magnesium Total Bilirubin 0.6 AST 23 ALT 27 Alkaline Phosphatase 254 H Total Protein 6.4 Albumin 2.3 L Urine Color Urine Appearance Urine pH Ur Specific Orange Urine Protein Urine Glucose (UA) Urine Ketones Urine Blood Urine Nitrite Urine Bilirubin Urine Urobilinogen Ur Leukocyte Esterase Urine WBC (Auto) Urine RBC (Auto) Urine Casts (Auto) U Epithel Cells (Auto) Urine Bacteria (Auto) Stool Occult Blood Blood Type A POSITIVE Antibody Screen Negative Crossmatch See Detail 01/23/19 01/24/19 01/24/19 23:50 00:50 09:35 WBC 12.0 H RBC 3.06 L Hgb 9.1 L Hct 27.7 L MCV 90.7 MCH 29.7 MCHC 32.8 RDW 16.8 H Plt Count 180 MPV 7.1 L Absolute Neuts (auto) 11.1 H Neutrophils % 92.6 H Neutrophils % (Manual) 90.9 H Band Neutrophils % 2.0 Lymphocytes % 1.5 L Lymphocytes % (Manual) 2.0 L Monocytes % 5.4 Monocytes % (Manual) 4 D Eosinophils % 0.0 Eosinophils % (Manual) 0.0 D Basophils % 0.5 Basophils % (Manual) 0.0 Myelocytes % (Man) 0 Promyelocytes % (Man) 0 Blast Cells % (Manual) 0 Nucleated RBC % 0 Metamyelocytes 0 Hypochromia 0 Platelet Estimate Normal Platelet Comment Polychromasia 0 Poikilocytosis 0 Anisocytosis 0 Microcytosis 0 Macrocytosis 0 Ovalocytes 1+ Schistocytes 1+ Sodium Potassium Chloride Carbon Dioxide Anion Gap BUN Creatinine Est GFR (CKD-EPI)AfAm Est GFR (CKD-EPI)NonAf Random Glucose Calcium Phosphorus Magnesium Total Bilirubin AST ALT Alkaline Phosphatase Total Protein Albumin Urine Color Yellow Urine Appearance Clear Urine pH 6.5 Ur Specific Orange 1.017 Urine Protein Negative Urine Glucose (UA) Negative Urine Ketones Negative Urine Blood Trace Urine Nitrite Negative Urine Bilirubin Negative Urine Urobilinogen 2.0 Ur Leukocyte Esterase Trace Urine WBC (Auto) 2 Urine RBC (Auto) 5 Urine Casts (Auto) 1 U Epithel Cells (Auto) 1.8 Urine Bacteria (Auto) 2.5 Stool Occult Blood Blood Type A POSITIVE Antibody Screen Crossmatch 01/24/19 01/24/19 09:35 11:00 WBC RBC Hgb Hct MCV MCH MCHC RDW Plt Count MPV Absolute Neuts (auto) Neutrophils % Neutrophils % (Manual) Band Neutrophils % Lymphocytes % Lymphocytes % (Manual) Monocytes % Monocytes % (Manual) Eosinophils % Eosinophils % (Manual) Basophils % Basophils % (Manual) Myelocytes % (Man) Promyelocytes % (Man) Blast Cells % (Manual) Nucleated RBC % Metamyelocytes Hypochromia Platelet Estimate Platelet Comment Polychromasia Poikilocytosis Anisocytosis Microcytosis Macrocytosis Ovalocytes Schistocytes Sodium 134 L Potassium 3.7 Chloride 98 Carbon Dioxide 29 Anion Gap 7 L BUN 8.1 Creatinine 0.5 L Est GFR (CKD-EPI)AfAm 129.05 Est GFR (CKD-EPI)NonAf 111.35 Random Glucose 141 H Calcium 8.3 L Phosphorus 3.2 Magnesium 2.0 Total Bilirubin 1.7 H AST 21 ALT 23 Alkaline Phosphatase 223 H Total Protein 5.8 L Albumin 2.1 L Urine Color Urine Appearance Urine pH Ur Specific Orange Urine Protein Urine Glucose (UA) Urine Ketones Urine Blood Urine Nitrite Urine Bilirubin Urine Urobilinogen Ur Leukocyte Esterase Urine WBC (Auto) Urine RBC (Auto) Urine Casts (Auto) U Epithel Cells (Auto) Urine Bacteria (Auto) Stool Occult Blood Negative Blood Type Antibody Screen Crossmatch Active Medications Generic Name Dose Route Start Last Admin Trade Name Freq PRN Reason Stop Dose Admin Chlorhexidine Gluconate 1 applic 01/24/19 22:00 Hibiclens For Decolonization - TP HS [facility] Docusate Sodium 300 mg 01/24/19 22:00 Colace - PO HS [facility] Enoxaparin Sodium 40 mg 01/24/19 10:00 01/24/19 10:10 Lovenox - SQ Not Given DAILY [facility] Gabapentin 300 mg 01/24/19 12:09 Neurontin - PO BID PRN PAIN Sodium Chloride 1,000 mls @ 75 mls/hr 01/24/19 05:22 01/24/19 06:20 Normal Saline - IV 75 mls/hr ASDIR SHIRA Administration Piperacillin Sod/Tazobactam 50 mls @ 100 mls/hr 01/24/19 18:00 Sod 3.375 gm/ Dextrose IVPB Q8H-IV [facility] Protocol Methadone HCl 10 mg 01/24/19 12:15 Dolophine - PO Q12H [facility] Metoprolol Tartrate 5 mg 01/24/19 09:45 01/24/19 10:05 Lopressor Injection - IVPUSH 01/24/19 09:46 5 mg ONCE ONE Administration Metoprolol Tartrate 25 mg 01/24/19 12:45 Lopressor - PO BID SHIRA Mupirocin 1 applic 01/24/19 10:00 01/24/19 09:56 Bactroban Ointment (For Decolonization) - NS 01/29/19 09:59 1 applic BID SHIRA Administration Oxycodone HCl 5 mg 01/24/19 12:09 Roxicodone - PO Q4H PRN BACK PAIN Polyethylene Glycol 17 gm 01/24/19 10:00 01/24/19 10:06 Miralax (For Daily Use) - PO 17 gm BID SHIRA Administration ASSESSMENT/PLAN: 68M PMH of RUL SCC (s/p chemotherapy with Carboplatinum/Paclitexal. to start Keytruda), Bowel resection s/p obstruction, elevated LFTs, Radiation therapy, ? Immunotherapy with Nevolumab, Tobacco use, Alcohol use, Chronic pain syndrome ( followed at [facility] pain clinic) and Opioid dependence sent in by Dr. Aviles who with fatigue lethargy, SOB, LE edema over the past week. Pt transferred to ICU for close cardiac monitoring s/p SVT cardioversion. Neuro - chronic pain - AAOx 3 - agitated - called pharmacy and confirmed pain meds - restart methadone - restart oyxcodone - restart gabapentin Cardio - s/p SVT DC cardioversion - SVT s/p adenosine 6, 12 IVP, lopressor 5mg, cardioversion - may have occurred 2/2 SOB, anemia. SVT is common in CA patients - converted to sinus after DC cardio 50J - ECHO, patient initially too agitated to tolerate exam - c/w telemetry - HR 120-130s, will monitor, may be 2/2 pain - if SVT recurs, will give amio bolus and start on amio gtt. - monitor lytes. K>4, Mg>2 - metoprolol 25 BID - f/u 01/24/19 cardiology recs Pulm - Lung CA - recently hospitalized - ID recs appreciated - c/w zosyn empirically - f/u blood cx, ucx, UA, legionella Ag - c/w IS - CXR: Single AP view of the chest has been submitted. Since the prior study of 01/24/2019 again noted is the prominent mediastinum with cavitary masslike density in the right upper lobe with some increasing atelectatic changes and questionable early right infiltrate. Correlation recommended. Heme-Onc - Chronic anemia likely 2/2 Lung CA, Lung CA (R Sq cell Carcinoma) - s/p 1U PRBC, appropriate H/H response - Monitor H/H - Transfused if Hgb < 8 - Heme recs appreciated -s/p chemo with Carboplatinum, Paclitaxel -?Immunotherapy with Nivolumab -c/w onc f/u: Dr. Aviles Vasc - LE edema - POCUS DVT neg FENGI IV NS 75 cc/h continue to follow lytes reg diet PPX - LVX Dispo - telemetry Visit type - Emergency Visit Emergency Visit: Yes ED Registration Date: 01/23/19 Care time: The patient presented to the Emergency Department on the above date and was hospitalized for further evaluation of their emergent condition. - New Patient This patient is new to me today: Yes Date on this admission: 01/24/19 - Critical Care Critical Care patient: Yes Total Critical Care Time (in minutes): 30 Critical Care Statement: The care of this patient involved high complexity decision making to prevent further life threatening deterioration of the patient 's condition and/or to evaluate & treat vital organ system(s) failure or risk of failure.
--- NOTE | 2019-01-24 13:05 | PN ---
Teaching Attending Note Name of Resident: Ney Duong ATTENDING PHYSICIAN STATEMENT I saw and evaluated the patient. I reviewed the resident's note and discussed the case with the resident. I agree with the resident's findings and plan as documented. SUBJECTIVE:conitnues to have CP which make it difficult to breathe. improved on leaning forward. states he has had these symptoms for 2 weeks. has had cough productive of clear/white sputum but no blood. denies fever, chills, N/V/C/D, hemoptysis, hematuria or melena. unclear if he had colonoscopy in the past. negative stress test a year ago OBJECTIVE: Last Vital Signs Temp Pulse Resp BP Pulse Ox 98.3 F 134 H 20 144/70 100 01/24/19 08:00 01/24/19 12:00 01/24/19 12:00 01/24/19 12:00 01/24/19 09:00 General mild distress due to pain CV S1 S2 tachy Lungs CTA B/L no wheezing/rales/rhonchi Abdomen soft NT/ND Extremities 1+ pitting edema, no calf tenderness LLE has skin tear slightly tender no surrounding erythema ASSESSMENT AND PLAN: 68yo M with PMH RUL squamous carcinoma on chemo and immunotherapy, SBO s/o bowel resection, polysubstance use, chronic pain syndrome on methadone was sent from Dr Aviles office for fatigue and dyspnea as he was noted to be anemic in the office(no documentation of lab values there) and found to be in SVT requiring adenosine and synchronized cardioversion 1. SVT- s/p adenosine 6mg then 12mg and then cardioverted with 50jules at 0430 AM per notes. post cardioversion appears to be in sinus tach. currently in sinus tachycardia. unknown history of abnormal rhythm. concern for PE exciting rhythm. start metoprolol to control rate. CTA when more stable. in interim will obtain doppler. will hold empiric treatment for possible PE until confirmed in setting of anemia. echo pending. check TSH. cardio consulted 2. Anemia- doubt this is causing symptoms as his hgb here is higher than previous hospitalization. no signs of bleeding. received 1 unit PRBC. awaiting post transfusion check. can check iron studies in 3 days. likely chronic. no obvious signs of bleeding. hematology on board 3. r/o Post-obstructive PNA- doubt infectious cause of symptoms. was treated with abx over the summer and completed course. received vanco and zosyn in the ER. will check cultures can liekly d/c abx if all negative. ID consulted 4. elevated alk phos- unknown if have bone involvement from malignancy. no abdominal pain. renny monitor for now 5. RUL squamous carcinoma- oncology follow up 6. SBO s/p resection 7. Chronic pain syndrome- on methadone. confirm dose 8. DVT ppx- lovenox 9. MICU monitoring The care of this patient involved high complexity decision making to prevent further life threatening deterioration of the patient's condition and/or to evaluate & treat vital organ system(s) failure or risk of failure. 45 minutes
[2019-01-24] MEDS: METOPROLOL TARTRATE 25 MG TABLET (FP) PO SCH ×2 (13:24→21:46)
--- NOTE | 2019-01-24 14:02 | CON.CARD ---
Consult Consult Specialty:: Cardiology Referred by:: Hospitalist Reason for Consultation:: Cardiac evaluation - History of Present Illness Chief Complaint: SVT History of Present Illness: Patient is a 68 year old male with underlying history of squamous cell carcinoma of the lung s/p chemotherapy, history of bowel resection for obstruction, abnormal LFT, history of radiation therapy and immunotherapy who presented with lethargy, shortness of breath and pedal edema. Patient was transfused with PRBC for anemia and while being transfused, he developed SVT with HR of 150's. He was given Adenosine 6 mg and then 12 mg and Lopressor IVP and finally DC cardioverted to sinus rhythm. He was transferred to ICU for further cardiac monitoring. He is a poor historian and is not able to give any history. He has been recently treated for post obstructive pneumonia and currently continues to have cough and chest discomfort intermittently. - History Source History Provided By: Medical Record Limitations to Obtaining History: Poor Historian - Past Medical History Cardio/Vascular: Yes: Other (PSVT) Pulmonary: Yes: Cancer (Squamous cell CA of the lung) - Past Surgical History Additional Surgical History: Bowel resection - Alcohol/Substance Use Hx Alcohol Use: Yes - Smoking History Smoking history: Former smoker Have you smoked in the past 12 months: No Aproximately how many cigarettes per day: 30 If you are a former smoker, when did you quit?: August 2018 Home Medications - Allergies Allergies/Adverse Reactions: Allergies Allergy/AdvReac Type Severity Reaction Status Date / Time No Known Allergies Allergy Verified 01/23/19 19:29 - Home Medications Home Medications: Ambulatory Orders Acetaminophen 650 mg PO Q6H PRN 01/05/19 Docusate Sodium [Colace] 100 mg PO TID 01/05/19 Gabapentin 300 mg PO Q8H PRN 01/05/19 Oxycodone HCl 5 mg PO Q4H PRN 01/05/19 Pantoprazole Sodium [Protonix] 40 mg PO DAILY 01/05/19 Tamsulosin HCl 0.4 mg PO BID 01/05/19 Cannabidiol (Cbd) Extract 0.2 ml PO BID 01/06/19 Amoxicillin/Potassium Clav [Augmentin 875-125 Tablet] 1 each PO BID 7 Days #14 tablet 01/08/19 Ferrous Gluconate [Fergon -] 324 mg PO DAILY #30 tab 01/08/19 Guaifenesin Dm [Robitussin Dm -] 5 ml PO Q6H PRN #7 cup 01/08/19 Methadone [Dolophine -] 10 mg PO Q12H 01/08/19 Family Disease History - Family Disease History Family Disease History: CA: Mother (Colon CA) Review of Systems Unable to obtain ROS, reason: Unable to obtain Vital Signs: Vital Signs Temperature 98.3 F 01/24/19 08:00 Pulse Rate 134 H 01/24/19 12:00 Respiratory Rate 20 01/24/19 12:00 Blood Pressure 144/70 01/24/19 12:00 O2 Sat by Pulse Oximetry (%) 100 01/24/19 09:00 Neck: Yes: Supple Respiratory: Yes: Diminished (decreased breath sound right lung field) Gastrointestinal: Yes: Normal Bowel Sounds, Soft. No: Tenderness Cardiovascular: Yes: Regular Rate and Rhythm, Tachycardia JVD: No PMI: Non-Displaced Heart Sounds: Yes: S1, S2. No: Gallop Edema: Yes - Other Data Labs, Other Data: CBC, BMP 01/24/19 09:35 01/24/19 09:35 Sinus tachycardia Imaging - Results Chest X-ray: Report Reviewed (Necrotic right lung mass) EKG: Report Reviewed Problem List - Problems (1) PSVT (paroxysmal supraventricular tachycardia) Code(s): I47.1 - SUPRAVENTRICULAR TACHYCARDIA (2) Hyponatremia Code(s): E87.1 - HYPO-OSMOLALITY AND HYPONATREMIA (3) Generalized weakness Code(s): R53.1 - WEAKNESS (4) Anemia Code(s): D64.9 - ANEMIA, UNSPECIFIED (5) Lung cancer Code(s): C34.90 - MALIGNANT NEOPLASM OF UNSP PART OF UNSP BRONCHUS OR LUNG (6) Sepsis Code(s): A41.9 - SEPSIS, UNSPECIFIED ORGANISM Assessment/Plan 1. PSVT s/p cardioversion to sinus tachycardia 2. Squamous cell CA of lung s/p chemotherapy and radiation therapy 3. History of pneumonia 4. Anemia s/p PRBC transfusion 5. Generalized weakness due to above 6. Organic brain syndrome 7. Hyponatremia 8. Abnormal TFT suggests hyperthyroid state PLAN: 1. Continue Metoprolol as tolerated 2. Echocardiography to assess LV/RV and valvular function 3. Continue to monitor HR 4. Transfuse PRBC as needed and follow CBC 5. Monitor NA and correct 6. DVT prophylaxis 7. Empiric antibiotic coverage Further plans are to follow Hugo Boyd MD
--- NOTE | 2019-01-24 14:35 | PN ---
Physical Exam: SUBJECTIVE: 68 y/o male with PMH RIGHT squamous cell carcinoma sent to ED for symptomatic anemia. Pt is known to Dr. Aviles and was experiencing SOB, tiredness , and lethargy, with office Hb 7.4. Pt also c/o LE swelling. He was recently started on immunotherapy and requires different thresholds for transfusion. Pt was sent to ED where he received x1 unit PRBC. He became more symptomatic and demonstrated atrial flutter and tachycardic to 150s. Pt given adenosine x2, and lopressor to no response and then 50 J electric cardioversion delivered. Pt was transfered to ICU Pt seen at bedside, resting comfortably. He states that he has chest pain today. The chest pain is diffuse, unsure of onset, aching character, non- radiating, and constant. Pt says he hungry and has no other concerns outside of the BL IV saline locks in place, which he says are uncomfortable. He denies NVFD. He denies SOB, headache, and vision change. OBJECTIVE: Vital Signs Temp Pulse Resp BP Pulse Ox 98.0 F 107 H 20 114/69 100 01/24/19 16:00 01/24/19 16:00 01/24/19 16:00 01/24/19 16:00 01/24/19 09:00 GENERAL: AOx3, in no acute distress. HEAD: NCAT EYES: CARLITOS, EOMI, conjunctiva clear. ENT: Ears normal, nares patent, oropharynx clear without exudates. Moist mucous membranes. NECK: Normal range of motion, supple without lymphadenopathy, JVD, or masses. LUNGS: RUL wheezes with dcreased air entry. LLL crackles. No accessory muscle use. HEART: RRR s1 s2 ABDOMEN: Soft, BS present in all 4 quadrants, non-distended, no JVD, MUSCULOSKELETAL: No bony deformities or tenderness. No CVA tenderness. UPPER EXTREMITIES: 2+ pulses, warm, well-perfused. No cyanosis. No clubbing. No peripheral edema. LOWER EXTREMITIES: 1+ edema BL. 2+ pulses, warm, well-perfused. No calf tenderness. No peripheral edema. NEUROLOGICAL: Cranial nerves II-XII intact. Normal speech. Gait not appreciated. PSYCHIATRIC: Cooperative. Good eye contact. Appropriate mood and affect. SKIN: Warm, dry, normal turgor, no rashes or lesions noted, normal capillary refill. Laboratory Results - last 24 hr 01/23/19 01/23/19 01/23/19 21:20 21:20 21:20 WBC 12.0 H RBC 2.71 L Hgb 7.9 L Hct 25.0 L MCV 92.3 MCH 29.1 MCHC 31.5 L RDW 17.4 H Plt Count 200 MPV 6.8 L Absolute Neuts (auto) 11.0 H Neutrophils % 91.3 H Neutrophils % (Manual) 95.0 H D Band Neutrophils % 1.0 Lymphocytes % 1.8 L Lymphocytes % (Manual) 2.0 L D Monocytes % 6.7 Monocytes % (Manual) 2 L D Eosinophils % 0.0 D Eosinophils % (Manual) Basophils % 0.2 Basophils % (Manual) Myelocytes % (Man) Promyelocytes % (Man) Blast Cells % (Manual) Nucleated RBC % 0 Metamyelocytes Hypochromia 1+ Platelet Estimate Normal Platelet Comment No clumping noted Polychromasia Poikilocytosis Anisocytosis 2+ Microcytosis 1+ Macrocytosis 2+ Ovalocytes Schistocytes Sodium 133 L Potassium 3.7 Chloride 95 L Carbon Dioxide 31 Anion Gap 7 L BUN 10.2 Creatinine 0.6 Est GFR (CKD-EPI)AfAm 119.74 Est GFR (CKD-EPI)NonAf 103.31 Random Glucose 121 H Calcium 8.8 Phosphorus Magnesium Total Bilirubin 0.6 AST 23 ALT 27 Alkaline Phosphatase 254 H Total Protein 6.4 Albumin 2.3 L Urine Color Urine Appearance Urine pH Ur Specific [place] Urine Protein Urine Glucose (UA) Urine Ketones Urine Blood Urine Nitrite Urine Bilirubin Urine Urobilinogen Ur Leukocyte Esterase Urine WBC (Auto) Urine RBC (Auto) Urine Casts (Auto) U Epithel Cells (Auto) Urine Bacteria (Auto) Stool Occult Blood Blood Type A POSITIVE Antibody Screen Negative Crossmatch See Detail 01/23/19 01/24/19 01/24/19 23:50 00:50 09:35 WBC 12.0 H RBC 3.06 L Hgb 9.1 L Hct 27.7 L MCV 90.7 MCH 29.7 MCHC 32.8 RDW 16.8 H Plt Count 180 MPV 7.1 L Absolute Neuts (auto) 11.1 H Neutrophils % 92.6 H Neutrophils % (Manual) 90.9 H Band Neutrophils % 2.0 Lymphocytes % 1.5 L Lymphocytes % (Manual) 2.0 L Monocytes % 5.4 Monocytes % (Manual) 4 D Eosinophils % 0.0 Eosinophils % (Manual) 0.0 D Basophils % 0.5 Basophils % (Manual) 0.0 Myelocytes % (Man) 0 Promyelocytes % (Man) 0 Blast Cells % (Manual) 0 Nucleated RBC % 0 Metamyelocytes 0 Hypochromia 0 Platelet Estimate Normal Platelet Comment Polychromasia 0 Poikilocytosis 0 Anisocytosis 0 Microcytosis 0 Macrocytosis 0 Ovalocytes 1+ Schistocytes 1+ Sodium Potassium Chloride Carbon Dioxide Anion Gap BUN Creatinine Est GFR (CKD-EPI)AfAm Est GFR (CKD-EPI)NonAf Random Glucose Calcium Phosphorus Magnesium Total Bilirubin AST ALT Alkaline Phosphatase Total Protein Albumin Urine Color Yellow Urine Appearance Clear Urine pH 6.5 Ur Specific [place] 1.017 Urine Protein Negative Urine Glucose (UA) Negative Urine Ketones Negative Urine Blood Trace Urine Nitrite Negative Urine Bilirubin Negative Urine Urobilinogen 2.0 Ur Leukocyte Esterase Trace Urine WBC (Auto) 2 Urine RBC (Auto) 5 Urine Casts (Auto) 1 U Epithel Cells (Auto) 1.8 Urine Bacteria (Auto) 2.5 Stool Occult Blood Blood Type A POSITIVE Antibody Screen Crossmatch 01/24/19 01/24/19 09:35 11:00 WBC RBC Hgb Hct MCV MCH MCHC RDW Plt Count MPV Absolute Neuts (auto) Neutrophils % Neutrophils % (Manual) Band Neutrophils % Lymphocytes % Lymphocytes % (Manual) Monocytes % Monocytes % (Manual) Eosinophils % Eosinophils % (Manual) Basophils % Basophils % (Manual) Myelocytes % (Man) Promyelocytes % (Man) Blast Cells % (Manual) Nucleated RBC % Metamyelocytes Hypochromia Platelet Estimate Platelet Comment Polychromasia Poikilocytosis Anisocytosis Microcytosis Macrocytosis Ovalocytes Schistocytes Sodium 134 L Potassium 3.7 Chloride 98 Carbon Dioxide 29 Anion Gap 7 L BUN 8.1 Creatinine 0.5 L Est GFR (CKD-EPI)AfAm 129.05 Est GFR (CKD-EPI)NonAf 111.35 Random Glucose 141 H Calcium 8.3 L Phosphorus 3.2 Magnesium 2.0 Total Bilirubin 1.7 H AST 21 ALT 23 Alkaline Phosphatase 223 H Total Protein 5.8 L Albumin 2.1 L Urine Color Urine Appearance Urine pH Ur Specific [place] Urine Protein Urine Glucose (UA) Urine Ketones Urine Blood Urine Nitrite Urine Bilirubin Urine Urobilinogen Ur Leukocyte Esterase Urine WBC (Auto) Urine RBC (Auto) Urine Casts (Auto) U Epithel Cells (Auto) Urine Bacteria (Auto) Stool Occult Blood Negative Blood Type Antibody Screen Crossmatch Active Medications Docusate Sodium (Colace -) 300 mg PO HS SHIRA Enoxaparin Sodium (Lovenox -) 40 mg SQ DAILY SHIRA Gabapentin (Neurontin -) 300 mg PO BID PRN PRN Reason: PAIN Sodium Chloride (Normal Saline -) 1,000 mls @ 75 mls/hr IV ASDIR SHIRA Piperacillin Sod/Tazobactam (Sod 3.375 gm/ Dextrose) 50 mls @ 100 mls/hr IVPB Q8H-IV SHIRA; Protocol Methadone HCl (Dolophine -) 10 mg PO Q12H SHIRA Metoprolol Tartrate (Lopressor -) 25 mg PO BID [facility] Last Admin: 01/24/19 13:24 Dose: 25 mg Metoprolol Tartrate (Lopressor Injection -) 5 mg IVPUSH Q6H PRN PRN Reason: TACHYCARDIA Oxycodone HCl (Roxicodone -) 5 mg PO Q4H PRN PRN Reason: BACK PAIN Polyethylene Glycol (Miralax (For Daily Use) -) 17 gm PO BID [facility] ASSESSMENT/PLAN: 68 y/o male with PMH RIGHT squamous cell carcinoma sent to ED for symptomatic anemia. Pt is known to Dr. Aviles and was experiencing SOB, tiredness, and lethargy, with office Hb 7.4 requiring transfusion to maintain specific parameters. Pt recieved PRBC in ED. Pt entered SVT and given adenosine, lopressor, and 50 J cardioversion. Pt currently being monitored in ICU. # Sepsis 2/2 possible obstructive pneumonia - CXR: Prominent mediastinum, RUL cavitary mass, RIGHT early infiltrate, increasing atelectatic changes - ID consulted: Cont. empiric zosyn - Cultures pending # Cough r/o possible pulmonary embolism - Leg pain - NEG POCUS/doppler - SOB and non-bloody cough - F/u CTA - Metoprolol 25 q6h IVBP *if* HR > 120 # SVT - New atrial flutter in ED, resolved - Currently sinus tachycardia in 110s. - Cont. telemetry monitoring in ICU - Echo pending - TSH, free t4 pending - Cardio consulted # Anemia - Hemodynamically stable with no signs of bleeding - H&H 7.9/25.0 - s/p 1 unit PRBC signs of bleeding. received 1 unit PRBC - Fe studies in 3 days - Most likely 2/2 chronic disease/cancer # Squamous cell carcinoma - Primary heme/onc consulted (Dr. Aviles) - Oxycodone for pain - Last head MRI- 12/13 - no mets # Elevated alk phos - Unknown if have bone involvement from malignancy - No abdominal pain - F/u chemistry # F/E/N - N/S - Mg, Phos ordered - Regular diet # DVT prophylaxis - Lovenox # Disposition - Cont. ICU monitoring Ney Duong MD Visit type - Emergency Visit Emergency Visit: Yes ED Registration Date: 01/23/19 Care time: The patient presented to the Emergency Department on the above date and was hospitalized for further evaluation of their emergent condition. - New Patient This patient is new to me today: Yes Date on this admission: 01/24/19 - Critical Care Critical Care patient: Yes Total Critical Care Time (in minutes): 40 Critical Care Statement: The care of this patient involved high complexity decision making to prevent further life threatening deterioration of the patient 's condition and/or to evaluate & treat vital organ system(s) failure or risk of failure. - Discharge Referral Referred to [facility] No ATTENDING PHYSICIAN STATEMENT I saw and evaluated the patient. I reviewed the resident's note and discussed the case with the resident. I agree with the resident's findings and plan as documented. SUBJECTIVE: OBJECTIVE: ASSESSMENT AND PLAN:
[2019-01-24] MEDS ORDERED: METOPROLOL TARTRATE 5 MG/5 ML VIAL IVPUSH PRN (16:15)
[2019-01-24] MEDS ORDERED: ALBUTEROL SO4 2.5/IPRATROPIUM 0.5 INH SOL 3 ML VIAL.NEB. NEB PRN (16:43)
[2019-01-24] MEDS: SODIUM CHLORIDE 1,000 ML IV SCH (17:30)
[2019-01-24] MEDS: PIPERACILLIN/TAZOB 3.375 GM 3.375 GM in DEXTROSE 5%-WATER - 50 ML IVPB SCH (19:32)
[2019-01-24] MEDS ORDERED: ALBUTEROL SO4 0.042% IH SOL 1.25 MG/3 ML VIAL.NEB NEB ONE (20:56)
--- NOTE | 2019-01-24 21:05 | PN ---
Teaching Attending Note Name of Resident: Florentin Rebolledo ATTENDING PHYSICIAN STATEMENT I saw and evaluated the patient. I reviewed the resident's note and discussed the case with the resident. I agree with the resident's findings and plan as documented. SUBJECTIVE: Patient seen and examined SCC of lung treated with taxol/ carbo and RT concurrently. Progression and begun on immunotherapy. Treated with nivolumab. Seen on day of admission by cardiology and felt to be in CHF and anemic. Sent to ER for transfusion therapy . Developed SVT given adenosine and then shocked . Pain management has been as issue and has gone to multiple specialists for Right upper anterior chest wall pains. Last Vital Signs Temp Pulse Resp BP Pulse Ox 100.9 F H 112 H 20 116/60 100 01/24/19 18:00 01/24/19 18:00 01/24/19 18:00 01/24/19 18:00 01/24/19 09:00 HEENT: CARLITOS, EOM Intact Oropharynx: No thrush, No mucositis Cor:sinus tach Lungs: diminished breath sounds Abd: Soft, Normal bowel sounds, No organomegaly Ext:2-3+ LE edema Skin: No rashes, Integument intact CBC, BMP 01/24/19 09:35 01/24/19 09:35 Current Medications Generic Name Dose Route Start Last Admin Trade Name Freq PRN Reason Stop Dose Admin Albuterol/Ipratropium 1 amp 01/24/19 16:43 Duoneb - NEB ONCE PRN COUGH Docusate Sodium 300 mg 01/24/19 22:00 Colace - PO HS SHIRA Enoxaparin Sodium 40 mg 01/25/19 10:00 Lovenox - SQ DAILY SHIRA Gabapentin 300 mg 01/24/19 17:53 Neurontin - PO BID PRN PAIN Sodium Chloride 1,000 mls @ 75 mls/hr 01/24/19 17:53 01/24/19 17:30 Normal Saline - IV Not Given ASDIR SHIRA Piperacillin Sod/Tazobactam 50 mls @ 100 mls/hr 01/24/19 18:00 01/24/19 19:32 Sod 3.375 gm/ Dextrose IVPB Not Given Q8H-IV SHIRA Protocol Methadone HCl 10 mg 01/25/19 00:15 Dolophine - PO Q12H SHIRA Metoprolol Tartrate 25 mg 01/24/19 12:45 01/24/19 13:24 Lopressor - PO 25 mg BID SHIRA Administration Metoprolol Tartrate 5 mg 01/24/19 16:15 Lopressor Injection - IVPUSH Q6H PRN TACHYCARDIA Oxycodone HCl 5 mg 01/24/19 17:53 01/24/19 20:21 Roxicodone - PO 5 mg Q4H PRN Administration BACK PAIN Polyethylene Glycol 17 gm 01/24/19 22:00 Miralax (For Daily Use) - PO BID SHIRA Imp: SCC Anemia- s/p transfusion SVT - s/p adenosine, beta romero and shock Pain management - on methadone. Toxic metabolic Plan Increase oxycodone Last head MRI- 12/13 - no mets Diurese when stable OBJECTIVE: ASSESSMENT AND PLAN:
[2019-01-24] MEDS: DOCUSATE SODIUM 100 MG CAPSULE (FP) PO SCH (21:45)
[2019-01-24] MEDS: POLYETHYLENE GLYCOL 3350 119 GM BTL PO SCH (21:49)
[2019-01-24] MEDS ORDERED: CHLORHEXIDINE GLUCONATE 4% CLEANSER FOR DECOLONIZATION TP SCH (22:00)
[2019-01-24] MEDS ORDERED: METOPROLOL TARTRATE 25 MG TABLET (FP) PO SCH (22:00)
[2019-01-24] MEDS ORDERED: DOCUSATE SODIUM 100 MG CAPSULE (FP) PO SCH (22:00)
[2019-01-24] MEDS: METHADONE HCL 10 MG TABLET PO SCH (23:57)
[2019-01-25] MEDS ORDERED: PIPERACILLIN/TAZOBACTAM 3.375 GM VIAL IVPB ONE ×3 (01:14→18:14)
[2019-01-25] MEDS ORDERED: DEXTROSE 5%-WATER - 50 ML IVPB ONE ×3 (01:14→18:14)
[2019-01-25] MEDS: oxyCODONE HCL 5 MG TABLET PO PRN ×3 (02:14→16:15)
[2019-01-25] MEDS: PIPERACILLIN/TAZOB 3.375 GM 3.375 GM in DEXTROSE 5%-WATER - 50 ML IVPB SCH ×3 (02:15→18:27)
[2019-01-25 06:19] LABS: HEMOGLOBIN 8.6 GM/dL (11.7-16.9); RDW 16.8 % (11.9-15.9)
[2019-01-25 06:49] LABS: BLOOD UREA NITROGEN 6.9 mg/dL (7-18); CALCIUM 8.3 mg/dL (8.5-10.1); CREATININE 0.5 mg/dL (0.55-1.3); POTASSIUM 3.6 mmol/L (3.5-5.1); TOT PROT 5.8 g/dl (6.4-8.2)
[2019-01-25 06:52] LABS: BASO % 0.4 % (0-2.0); EOS % 0.2 % (0-4.5); HEMATOCRIT 25.9 % (35.4-49); LYMPH % 2.6 % (8-40); MCHC 33.1 g/dl (32.0-35.9); MEAN CELL VOLUME 90.7 fl (80-96); MEAN PLT VOLUME 6.9 fl (7.5-11.1); MONO % 6.9 % (3.8-10.2); NEUT % 89.9 % (42.8-82.8); PLATELET COUNT 186 K/MM3 (134-434); RBC 2.85 M/mm3 (4.00-5.60); WHITE BLOOD COUNT 9.4 K/mm3 (4.0-10.0)
[2019-01-25] MEDS: METOPROLOL TARTRATE 25 MG TABLET (FP) PO SCH ×2 (09:06→23:42)
[2019-01-25] MEDS: ENOXAPARIN NA (PORCINE) 40 MG/0.4 ML DISP.SYRIN SQ SCH (09:06)
[2019-01-25] MEDS: POLYETHYLENE GLYCOL 3350 119 GM BTL PO SCH ×2 (09:06→23:42)
--- NOTE | 2019-01-25 10:30 | PN ---
Progress Note, Physician History of Present Illness: Remains in SR, confused and uncooperative with echo. - Current Medication List Current Medications: Active Medications Albuterol/Ipratropium (Duoneb -) 1 amp NEB ONCE PRN PRN Reason: COUGH Last Admin: 01/24/19 21:22 Dose: 1 amp Docusate Sodium (Colace -) 300 mg PO HS [facility] Last Admin: 01/24/19 21:45 Dose: 300 mg Enoxaparin Sodium (Lovenox -) 40 mg SQ DAILY [facility] Last Admin: 01/25/19 09:06 Dose: 40 mg Gabapentin (Neurontin -) 300 mg PO BID PRN PRN Reason: PAIN Sodium Chloride (Normal Saline -) 1,000 mls @ 75 mls/hr IV ASDIR [facility] Last Admin: 01/24/19 17:30 Dose: Not Given Piperacillin Sod/Tazobactam (Sod 3.375 gm/ Dextrose) 50 mls @ 100 mls/hr IVPB Q8H-IV SHIRA; Protocol Last Admin: 01/25/19 09:06 Dose: 100 mls/hr Methadone HCl (Dolophine -) 10 mg PO Q12H [facility] Last Admin: 01/24/19 23:57 Dose: 10 mg Metoprolol Tartrate (Lopressor -) 25 mg PO BID [facility] Last Admin: 01/25/19 09:06 Dose: 25 mg Metoprolol Tartrate (Lopressor Injection -) 5 mg IVPUSH Q6H PRN PRN Reason: TACHYCARDIA Oxycodone HCl (Roxicodone -) 10 mg PO Q4H PRN PRN Reason: PAIN LEVEL 4 - 6 Last Admin: 01/25/19 02:14 Dose: 10 mg Polyethylene Glycol (Miralax (For Daily Use) -) 17 gm PO BID [facility] Last Admin: 01/25/19 09:06 Dose: 17 gm - Objective Vital Signs: Vital Signs Temperature 98.3 F 01/25/19 09:05 Pulse Rate 119 H 01/25/19 09:05 Respiratory Rate 01/25/19 09:05 Blood Pressure 132/76 01/25/19 09:05 O2 Sat by Pulse Oximetry (%) 100 01/24/19 21:00 Constitutional: Yes: No Distress, Calm, Thin Neck: Yes: Supple Cardiovascular: Yes: Regular Rate and Rhythm Respiratory: Yes: Regular, CTA Bilaterally Gastrointestinal: Yes: Normal Bowel Sounds, Soft Edema: No Labs: CBC, BMP 01/25/19 05:50 01/25/19 05:50 - ....Imaging EKG: Report Reviewed (Tele: NSR) Problem List - Problems (1) Anemia Code(s): D64.9 - ANEMIA, UNSPECIFIED Qualifiers: Anemia type: unspecified type Qualified Code(s): D64.9 - Anemia, unspecified (2) Generalized weakness Code(s): R53.1 - WEAKNESS (3) Hyponatremia Code(s): E87.1 - HYPO-OSMOLALITY AND HYPONATREMIA (4) Lung cancer Code(s): C34.90 - MALIGNANT NEOPLASM OF UNSP PART OF UNSP BRONCHUS OR LUNG (5) PSVT (paroxysmal supraventricular tachycardia) Code(s): I47.1 - SUPRAVENTRICULAR TACHYCARDIA Assessment/Plan 1. PSVT s/p adenosine and cardioversion to sinus tachycardia 2. Squamous cell CA of lung s/p chemotherapy and radiation therapy 3. History of pneumonia 4. Anemia s/p PRBC transfusion 5. Generalized weakness due to above 6. Organic brain syndrome 7. Hyponatremia 8. Abnormal TFT suggests hyperthyroid state PLAN: 1. Continue Metoprolol 25 bid 2. Echocardiography to assess LV/RV and valvular function once patient cooperates 3. Continue to monitor telemetry 4. Transfuse PRBC as needed and follow CBC 5. Monitor NA and correct 6. DVT prophylaxis 7. Empiric antibiotic coverage, BD and O2 as needed
[2019-01-25] MEDS: GABAPENTIN 300 MG CAPSULE (FP) PO PRN ×2 (11:07→20:33)
--- NOTE | 2019-01-25 11:28 | EKG ---
Test Reason : Blood Pressure : / mmHG Vent. Rate : 108 BPM Atrial Rate : 108 BPM P-R Int : 154 ms QRS Dur : 086 ms QT Int : 344 ms P-R-T Axes : 060 032 052 degrees QTc Int : 460 ms SINUS TACHYCARDIA POSSIBLE LEFT ATRIAL ENLARGEMENT BORDERLINE ECG WHEN COMPARED WITH ECG OF 06-JAN-2019 03:04, NO SIGNIFICANT CHANGE WAS FOUND Confirmed by PERCY JURADO MD ([id number]) on 01/25/2019 11:28:27 AM Referred By: Confirmed By:PERCY JURADO MD
--- NOTE | 2019-01-25 11:29 | EKG ---
Test Reason : Blood Pressure : / mmHG Vent. Rate : 141 BPM Atrial Rate : 072 BPM P-R Int : 000 ms QRS Dur : 088 ms QT Int : 344 ms P-R-T Axes : 000 032 031 degrees QTc Int : 526 ms SUPRAVENTRICULAR TACHYCARDIA OTHERWISE NORMAL ECG WHEN COMPARED WITH ECG OF 24-JAN-2019 01:58, SINUS RHYTHM HAS REPLACED ATRIAL FLUTTER Confirmed by PERCY JURADO MD ([id number]) on 01/25/2019 11:29:00 AM Referred By: Confirmed By:PERCY JURADO MD
--- NOTE | 2019-01-25 11:57 | PN ---
Teaching Attending Note Name of Resident: Ney Duong ATTENDING PHYSICIAN STATEMENT I saw and evaluated the patient. I reviewed the resident's note and discussed the case with the resident. I agree with the resident's findings and plan as documented. SUBJECTIVE:c/o lethargy. states CP and dyspnea have both resolved. denies Cp, SOB, fever, chills, cough, N/V/C/D OBJECTIVE: Last Vital Signs Temp Pulse Resp BP Pulse Ox 98.3 F 119 H 19 132/76 97 01/25/19 09:05 01/25/19 09:05 01/25/19 09:05 01/25/19 09:05 01/25/19 09:00 General lethargic, easily arrousable to verbal stimuli but quickly falls asleep CV S1 S2 tachy Lungs CTA B/L no wheezing/rales/rhonchi Abdomen soft NT/ND Extremities 1+ pitting edema, no calf tenderness LLE has skin tear slightly tender no surrounding erythema ASSESSMENT AND PLAN: 68yo M with PMH RUL squamous carcinoma on chemo and immunotherapy, SBO s/o bowel resection, polysubstance use, chronic pain syndrome on methadone was sent from Dr Aviles office for fatigue and dyspnea as he was noted to be anemic in the office(no documentation of lab values there) and found to be in SVT requiring adenosine and synchronized cardioversion 1. SVT- s/p adenosine 6mg then 12mg and then cardioverted with 50jules. remains in sinus tachycardia but rate improved. concern for PE given risk factors. unable to complete CTA due to not cooperating. awaiting echo. on metoprolol. cardio onboard. cont cardiac monitoring. TSH WNL. 2. acute metabolic encephalopathy- can be medication induced (oxycodone dose increased) vs hyperapnia. as per RN he was more alert last night and has been more lethargic this am but agrees is arousable. did receive oxy early this Am which could have prolonged lethargy. check ABG. will hold off on CT head at this time as had recent MRI that was negative for mets or acute pathology and low concern for CVA at this time. 3. Anemia- doubt this is causing symptoms. received 1 unit PRBC. hgb stable. monitor and trend. 4. r/o Post-obstructive PNA- doubt infectious cause of symptoms. was treated with abx over the summer and completed course. on zosyn day 2. will check cultures can liekly d/c abx if all negative. ID consulted 5. elevated alk phos- unknown if have bone involvement from malignancy. no abdominal pain. will monitor for now 6. RUL squamous carcinoma- oncology follow up 7. SBO s/p resection 8. Chronic pain syndrome- on methadone. confirm dose 9. DVT ppx- lovenox
[2019-01-25] MEDS: METHADONE HCL 10 MG TABLET PO SCH (12:26)
--- NOTE | 2019-01-25 13:32 | PN ---
Physical Exam: SUBJECTIVE: 68 y/o male with PMH RIGHT squamous cell carcinoma sent to ED for symptomatic anemia. Pt is known to Dr. Aviles and was experiencing SOB, tiredness , and lethargy, with office Hb 7.4. Pt also c/o LE swelling. He was recently started on immunotherapy and requires different thresholds for transfusion. Pt was sent to ED where he received x1 unit PRBC. He became more symptomatic and demonstrated atrial flutter and tachycardic to 150s. Pt given adenosine x2, and lopressor to no response and then 50 J electric cardioversion delivered. Pt was transfered to ICU. He has stabilized and was transfered to the medical floor for telemetry. Ativan 0.5 mg was given at 12:11pm 2/2 restlessness. Overnight pt was tachicardic to 134 and febrile 100.9. Pt seen at bedside, sleeping. Pt was somewhat difficult to arouse but orientable. ABG ordered. He states that he is hungry, the cough has reduced, and he is tired. He denies HOWE and SOB. OBJECTIVE: Vital Signs Period Temp Pulse Resp BP Sys/Seo Pulse Ox Last 24 Hr 97.6 F-100.9 F 101-119 18-20 99-139/58-76 97-100 GENERAL: Alert and orientable. In no acute distress. HEAD: NCAT EYES: CARLITOS, EOMI, conjunctiva clear. ENT: Ears normal, nares patent, oropharynx clear without exudates. Moist mucous membranes. NECK: Normal range of motion, supple without lymphadenopathy, JVD, or masses. LUNGS: RUL wheezes with dcreased air entry. LLL crackles. No accessory muscle use. HEART: RRR s1 s2 ABDOMEN: Soft, BS present in all 4 quadrants, non-distended, no JVD, MUSCULOSKELETAL: No bony deformities or tenderness. No CVA tenderness. UPPER EXTREMITIES: 2+ pulses, warm, well-perfused. No cyanosis. No clubbing. No peripheral edema. LOWER EXTREMITIES: 1+ edema BL. 2+ pulses, warm, well-perfused. No calf tenderness. No peripheral edema. NEUROLOGICAL: Cranial nerves II-XII intact. Normal speech. Gait not appreciated. PSYCHIATRIC: Uncooperative, somnolent. Poor eye contact. Appropriate mood and affect. SKIN: Warm, dry, normal turgor, no rashes or lesions noted, normal capillary refill. Laboratory Results - last 24 hr 01/25/19 01/25/19 05:50 05:50 WBC 9.4 RBC 2.85 L Hgb 8.6 L Hct 25.9 L MCV 90.7 MCH 30.0 MCHC 33.1 RDW 16.8 H Plt Count 186 MPV 6.9 L Absolute Neuts (auto) 8.5 H Neutrophils % 89.9 H Lymphocytes % 2.6 L D Monocytes % 6.9 Eosinophils % 0.2 D Basophils % 0.4 Nucleated RBC % 0 Sodium 133 L Potassium 3.6 Chloride 99 Carbon Dioxide 29 Anion Gap 5 L BUN 6.9 L Creatinine 0.5 L Est GFR (CKD-EPI)AfAm 129.05 Est GFR (CKD-EPI)NonAf 111.35 Random Glucose 106 Calcium 8.3 L Total Bilirubin 1.0 AST 24 ALT 23 Alkaline Phosphatase 243 H Total Protein 5.8 L Albumin 2.0 L TSH 0.56 D Free T4 1.56 H Active Medications Albuterol/Ipratropium (Duoneb -) 1 amp NEB ONCE PRN PRN Reason: COUGH Last Admin: 01/24/19 21:22 Dose: 1 amp Docusate Sodium (Colace -) 300 mg PO HS SHIRA Last Admin: 01/24/19 21:45 Dose: 300 mg Enoxaparin Sodium (Lovenox -) 40 mg SQ DAILY SHIAR Last Admin: 01/25/19 09:06 Dose: 40 mg Gabapentin (Neurontin -) 300 mg PO BID PRN PRN Reason: PAIN Last Admin: 01/25/19 11:07 Dose: 300 mg Sodium Chloride (Normal Saline -) 1,000 mls @ 75 mls/hr IV ASDIR SHIRA Last Admin: 01/24/19 17:30 Dose: Not Given Piperacillin Sod/Tazobactam (Sod 3.375 gm/ Dextrose) 50 mls @ 100 mls/hr IVPB Q8H-IV SHIRA; Protocol Last Admin: 01/25/19 09:06 Dose: 100 mls/hr Methadone HCl (Dolophine -) 10 mg PO Q12H SHIRA Last Admin: 01/25/19 12:26 Dose: 10 mg Metoprolol Tartrate (Lopressor -) 25 mg PO BID SHIRA Last Admin: 01/25/19 09:06 Dose: 25 mg Metoprolol Tartrate (Lopressor Injection -) 5 mg IVPUSH Q6H PRN PRN Reason: TACHYCARDIA Oxycodone HCl (Roxicodone -) 10 mg PO Q4H PRN PRN Reason: PAIN LEVEL 4 - 6 Last Admin: 01/25/19 10:34 Dose: 10 mg Polyethylene Glycol (Miralax (For Daily Use) -) 17 gm PO BID SHIRA Last Admin: 01/25/19 09:06 Dose: 17 gm ASSESSMENT/PLAN: 68 y/o male with PMH RIGHT squamous cell carcinoma sent to ED for symptomatic anemia. Pt is known to Dr. Aviles and was experiencing SOB, tiredness, and lethargy, with office Hb 7.4 requiring transfusion to maintain specific parameters. Pt recieved PRBC in ED. Pt entered SVT and given adenosine, lopressor, and 50 J cardioversion. Pt transfered from ICU to medical floor for telemetry. # Sepsis 2/2 possible obstructive pneumonia - CXR: Prominent mediastinum, RUL cavitary mass, RIGHT early infiltrate, increasing atelectatic changes - ID consulted: Cont. empiric zosyn - Cultures pending - Pt remains tachy to 110 - TSH WNL # Cough r/o possible pulmonary embolism - Leg pain - Unable to complete CTA 2/2 pt not cooperating - NEG POCUS/doppler - SOB and non-bloody cough - F/u CTA - Metoprolol 25 q6h IVBP *if* HR > 120 # Acute metabolic encephalopathy - Possibly medication induced (oxycodone dose increased and given ativan 01/24) - Possibly hypercapnia: ABG pending - Recent MRI that was negative for mets or acute pathology and low concern for CVA at this time # SVT - New atrial flutter in ED, resolved - Currently sinus tachycardia in 110s. - Cont. telemetry monitoring in ICU - Echo pending - TSH, free t4 pending - Cardio consulted: > Cont. Metoprolol 25 bid > Unable to perform echo (pt not cooperating). Echocardiography to assess LV/ RV and valvular function once patient cooperates > Cont. telemetry > Transfuse PRBC as needed and follow CBC # Anemia - Hemodynamically stable with no signs of bleeding - H&H 7.9/25.0 - s/p 1 unit PRBC signs of bleeding. received 1 unit PRBC - Fe studies in 3 days - Most likely 2/2 chronic disease/cancer # Squamous cell carcinoma - Primary heme/onc consulted (Dr. Aviles) - Oxycodone for pain - Last head MRI- 12/13 - no mets # Elevated alk phos - Unknown if have bone involvement from malignancy - No abdominal pain - F/u chemistry # F/E/N - N/S - Mg, Phos ordered - Regular diet # DVT prophylaxis - Lovenox # Disposition - Cont. telemetry Ney Duong MD Visit type - Emergency Visit Emergency Visit: No - New Patient This patient is new to me today: No - Critical Care Critical Care patient: No - Discharge Referral Referred to [facility] Med [facility] No ATTENDING PHYSICIAN STATEMENT I saw and evaluated the patient. I reviewed the resident's note and discussed the case with the resident. I agree with the resident's findings and plan as documented. SUBJECTIVE: OBJECTIVE: ASSESSMENT AND PLAN:
[2019-01-25 14:07] LABS: ARTERIAL BLD GAS O2 SATURATION 98.2 % (95-98); ARTERIAL BLOOD GAS PCO2 35.3 mmHg (35-45); ARTERIAL BLOOD GAS PO2 99.1 mmHg (80-100)
[2019-01-25 14:18] LABS: ALLENS TEST POSITIVE
[2019-01-25] MEDS: SODIUM CHLORIDE 1,000 ML IV SCH ×2 (16:17→19:46)
--- NOTE | 2019-01-25 20:35 | PN ---
Progress Note (short form) - Note Progress Note: Patient seen and examined Pain remains major issue. He has gone to 3 pain management groups and has left each one . I have encouraged him to stick with one. We can try getting the pain team from [facility] to try there skills. As we increase his analgesics he becomes increasingly confused and lethargic. He has had several previous head MRI scans without obvious mets. Currently being monitored on floor Not very receptive to questioning Sits up with legs folded and bent head Last Vital Signs Temp Pulse Resp BP Pulse Ox 97.8 F 105 H 20 137/75 97 01/25/19 18:00 01/25/19 18:00 01/25/19 18:00 01/25/19 18:00 01/25/19 09:00 Lungs with rhonchi Cor-RSR No significant LE edema CBC, BMP 01/25/19 05:50 01/25/19 05:50 Current Medications Generic Name Dose Route Start Last Admin Trade Name Freq PRN Reason Stop Dose Admin Docusate Sodium 300 mg 01/24/19 22:00 01/24/19 21:45 Colace - PO 300 mg HS SHIRA Administration Enoxaparin Sodium 40 mg 01/25/19 10:00 01/25/19 09:06 Lovenox - SQ 40 mg DAILY SHIRA Administration Gabapentin 300 mg 01/24/19 17:53 01/25/19 20:33 Neurontin - PO 300 mg BID PRN Administration PAIN Sodium Chloride 1,000 mls @ 75 mls/hr 01/24/19 17:53 01/25/19 19:46 Normal Saline - IV Not Given ASDIR SHIRA Piperacillin Sod/Tazobactam 50 mls @ 100 mls/hr 01/24/19 18:00 01/25/19 18:27 Sod 3.375 gm/ Dextrose IVPB 100 mls/hr Q8H-IV SHIRA Administration Protocol Methadone HCl 10 mg 01/25/19 00:15 01/25/19 12:26 Dolophine - PO 10 mg Q12H SHIRA Administration Metoprolol Tartrate 25 mg 01/24/19 12:45 01/25/19 09:06 Lopressor - PO 25 mg BID SHIRA Administration Metoprolol Tartrate 5 mg 01/24/19 16:15 01/25/19 16:12 Lopressor Injection - IVPUSH 5 mg Q6H PRN Administration TACHYCARDIA Oxycodone HCl 10 mg 01/24/19 21:14 01/25/19 16:15 Roxicodone - PO 10 mg Q4H PRN Administration PAIN LEVEL 4 - 6 Polyethylene Glycol 17 gm 01/24/19 22:00 01/25/19 09:06 Miralax (For Daily Use) - PO 17 gm BID SHIRA Administration Impression: Lung ca SVT Pain management Anemia Suggest - try pain management once again. Due for immunotherapy next week
[2019-01-25] MEDS ORDERED: guaiFENesin 200 MG/10 ML 10 ML UNIT-DOSE CUPS PO ONE (21:40)
[2019-01-25] MEDS ORDERED: MELATONIN 5 MG TABLETS PO ONE (21:55)
[2019-01-25] MEDS ORDERED: ACETAMINOPHEN 1000 MG/100 ML VIAL (NON FORMULARY) IVPB ONE (21:55)
[2019-01-25] MEDS: DOCUSATE SODIUM 100 MG CAPSULE (FP) PO SCH (23:42)
[2019-01-26] MEDS: METHADONE HCL 10 MG TABLET PO SCH ×2 (00:57→11:31)
[2019-01-26] MEDS ORDERED: PIPERACILLIN/TAZOBACTAM 3.375 GM VIAL IVPB ONE ×2 (01:43→09:25)
[2019-01-26] MEDS ORDERED: DEXTROSE 5%-WATER - 50 ML IVPB ONE ×2 (01:44→09:25)
[2019-01-26] MEDS: PIPERACILLIN/TAZOB 3.375 GM 3.375 GM in DEXTROSE 5%-WATER - 50 ML IVPB SCH ×3 (02:22→13:05)
[2019-01-26 06:24] LABS: BASO % 0.4 % (0-2.0); EOS % 0.4 % (0-4.5); HEMATOCRIT 25.3 % (35.4-49); HEMOGLOBIN 8.3 GM/dL (11.7-16.9); LYMPH % 2.1 % (8-40); MCHC 32.8 g/dl (32.0-35.9); MEAN CELL VOLUME 91.5 fl (80-96); MEAN PLT VOLUME 7.3 fl (7.5-11.1); MONO % 7.7 % (3.8-10.2); NEUT % 89.4 % (42.8-82.8); PLATELET COUNT 149 K/MM3 (134-434); RBC 2.76 M/mm3 (4.00-5.60); RDW 16.5 % (11.9-15.9); WHITE BLOOD COUNT 10.3 K/mm3 (4.0-10.0)
[2019-01-26 06:46] LABS: ALBUMIN 1.8 g/dl (3.4-5.0); BLOOD UREA NITROGEN 7.7 mg/dL (7-18); CREATININE 0.5 mg/dL (0.55-1.3); PHOSPHOROUS 3.2 mg/dL (2.5-4.9); POTASSIUM 3.4 mmol/L (3.5-5.1); TOT PROT 5.6 g/dl (6.4-8.2)
[2019-01-26] MEDS: SODIUM CHLORIDE 1,000 ML IV SCH ×3 (08:54→22:41)
[2019-01-26] MEDS: METOPROLOL TARTRATE 25 MG TABLET (FP) PO SCH ×2 (09:51→22:38)
[2019-01-26] MEDS: ENOXAPARIN NA (PORCINE) 40 MG/0.4 ML DISP.SYRIN SQ SCH (09:51)
[2019-01-26] MEDS: POLYETHYLENE GLYCOL 3350 119 GM BTL PO SCH ×2 (09:53→22:38)
--- NOTE | 2019-01-26 10:19 | PN ---
Progress Note, Physician History of Present Illness: Remains in SR, confused and uncooperative with echo. - Current Medication List Current Medications: Active Medications Docusate Sodium (Colace -) 300 mg PO HS [facility] Last Admin: 01/25/19 23:42 Dose: 300 mg Enoxaparin Sodium (Lovenox -) 40 mg SQ DAILY [facility] Last Admin: 01/26/19 09:51 Dose: 40 mg Gabapentin (Neurontin -) 300 mg PO BID PRN PRN Reason: PAIN Last Admin: 01/25/19 20:33 Dose: 300 mg Sodium Chloride (Normal Saline -) 1,000 mls @ 75 mls/hr IV ASDIR SHIRA Last Admin: 01/26/19 08:54 Dose: 75 mls/hr Piperacillin Sod/Tazobactam (Sod 3.375 gm/ Dextrose) 50 mls @ 100 mls/hr IVPB Q8H-IV SHIRA; Protocol Last Admin: 01/26/19 02:22 Dose: 100 mls/hr Methadone HCl (Dolophine -) 10 mg PO Q12H [facility] Last Admin: 01/26/19 00:57 Dose: 10 mg Metoprolol Tartrate (Lopressor -) 25 mg PO BID [facility] Last Admin: 01/26/19 09:51 Dose: 25 mg Metoprolol Tartrate (Lopressor Injection -) 5 mg IVPUSH Q6H PRN PRN Reason: TACHYCARDIA Last Admin: 01/25/19 16:12 Dose: 5 mg Oxycodone HCl (Roxicodone -) 10 mg PO Q4H PRN PRN Reason: PAIN LEVEL 4 - 6 Last Admin: 01/25/19 16:15 Dose: 10 mg Polyethylene Glycol (Miralax (For Daily Use) -) 17 gm PO BID [facility] Last Admin: 01/26/19 09:53 Dose: 17 gm - Objective Vital Signs: Vital Signs Temperature 98.3 F 01/26/19 08:03 Pulse Rate 98 H 01/26/19 08:03 Respiratory Rate 20 01/26/19 08:03 Blood Pressure 115/67 01/26/19 08:03 O2 Sat by Pulse Oximetry (%) 96 01/25/19 22:00 Constitutional: Yes: No Distress, Calm Neck: Yes: Supple Cardiovascular: Yes: Regular Rate and Rhythm Respiratory: Yes: Regular, Diminished Gastrointestinal: Yes: Soft, Hypoactive Bowel Sounds Edema: No Labs: CBC, BMP 01/26/19 05:55 01/26/19 05:55 - ....Imaging EKG: Report Reviewed (Tele: ST) Problem List - Problems (1) Anemia Code(s): D64.9 - ANEMIA, UNSPECIFIED Qualifiers: Anemia type: unspecified type Qualified Code(s): D64.9 - Anemia, unspecified (2) Generalized weakness Code(s): R53.1 - WEAKNESS (3) Hyponatremia Code(s): E87.1 - HYPO-OSMOLALITY AND HYPONATREMIA (4) Lung cancer Code(s): C34.90 - MALIGNANT NEOPLASM OF UNSP PART OF UNSP BRONCHUS OR LUNG (5) PSVT (paroxysmal supraventricular tachycardia) Code(s): I47.1 - SUPRAVENTRICULAR TACHYCARDIA Assessment/Plan 1. PSVT s/p adenosine and cardioversion to sinus tachycardia 2. Squamous cell CA of lung s/p chemotherapy and radiation therapy 3. History of pneumonia 4. Anemia s/p PRBC transfusion 5. Generalized weakness due to above 6. Organic brain syndrome 7. Hyponatremia 8. Abnormal TFT suggests hyperthyroid state PLAN: 1. Continue Metoprolol 25 bid 2. Echocardiography to assess LV/RV and valvular function once patient cooperates 3. Continue to monitor telemetry 4. Transfuse PRBC as needed and follow CBC 5. Monitor NA and correct 6. DVT prophylaxis 7. Empiric antibiotic coverage, BD and O2 as needed
--- NOTE | 2019-01-26 11:24 | PN ---
Progress Note (short form) - Note Progress Note: Resting in NAD on RA. Confused but interactive. No acute events overnight. Intake & Output 01/23/19 01/24/19 01/25/19 01/26/19 23:59 23:59 23:59 23:59 Intake Total 1205 1055 900 Output Total 600 575 500 Balance 605 480 400 Weight 123 lb 123 lb Last Vital Signs Temp Pulse Resp BP Pulse Ox 98.3 F 98 H 20 115/67 97 01/26/19 08:03 01/26/19 08:03 01/26/19 08:03 01/26/19 08:03 01/26/19 09:00 Active Medications Docusate Sodium (Colace -) 300 mg PO HS [facility] Last Admin: 01/25/19 23:42 Dose: 300 mg Enoxaparin Sodium (Lovenox -) 40 mg SQ DAILY [facility] Last Admin: 01/26/19 09:51 Dose: 40 mg Gabapentin (Neurontin -) 300 mg PO BID PRN PRN Reason: PAIN Last Admin: 01/25/19 20:33 Dose: 300 mg Sodium Chloride (Normal Saline -) 1,000 mls @ 75 mls/hr IV ASDIR SHIRA Last Admin: 01/26/19 08:54 Dose: 75 mls/hr Piperacillin Sod/Tazobactam (Sod 3.375 gm/ Dextrose) 50 mls @ 100 mls/hr IVPB Q8H-IV SHIRA; Protocol Last Admin: 01/26/19 02:22 Dose: 100 mls/hr Methadone HCl (Dolophine -) 10 mg PO Q12H [facility] Last Admin: 01/26/19 00:57 Dose: 10 mg Metoprolol Tartrate (Lopressor -) 25 mg PO BID [facility]IRA Last Admin: 01/26/19 09:51 Dose: 25 mg Metoprolol Tartrate (Lopressor Injection -) 5 mg IVPUSH Q6H PRN PRN Reason: TACHYCARDIA Last Admin: 01/25/19 16:12 Dose: 5 mg Oxycodone HCl (Roxicodone -) 10 mg PO Q4H PRN PRN Reason: PAIN LEVEL 4 - 6 Last Admin: 01/25/19 16:15 Dose: 10 mg Polyethylene Glycol (Miralax (For Daily Use) -) 17 gm PO BID [facility] Last Admin: 01/26/19 09:53 Dose: 17 gm Gen: Awake and interactive but confused, NAD Heart: S1S2 Lung: decreased breath sounds at the bases few scattered rhonchi Abd: soft, nontender Ext: no edema Laboratory Results - last 24 hr 01/25/19 01/25/19 01/26/19 13:55 17:45 05:55 WBC 10.3 H RBC 2.76 L Hgb 8.3 L Hct 25.3 L MCV 91.5 MCH 30.0 MCHC 32.8 RDW 16.5 H Plt Count 149 MPV 7.3 L Absolute Neuts (auto) 9.2 H Neutrophils % 89.4 H Lymphocytes % 2.1 L Monocytes % 7.7 Eosinophils % 0.4 D Basophils % 0.4 Nucleated RBC % 0 Anticoagulation Therapy No Result Required. Puncture Site Left radial ABG pH 7.50 H ABG pCO2 at Pt Temp 35.3 ABG pO2 at Pt Temp 99.1 ABG HCO3 27.0 ABG O2 Sat (Measured) 98.2 H ABG O2 Content 12.2 ABG Base Excess 4.0 H Farrukh Test Positive O2 Delivery Device No Result Required. Oxygen Flow Rate No Vent Mode No Result Required. Vent Rate No Result Required. Mechanical Rate No Result Required. Pressure Support Vent No Result Required. Sodium Potassium Chloride Carbon Dioxide Anion Gap BUN Creatinine Est GFR (CKD-EPI)AfAm Est GFR (CKD-EPI)NonAf Random Glucose Calcium Phosphorus Magnesium Total Bilirubin GGT 189 H AST ALT Alkaline Phosphatase Total Protein Albumin 01/26/19 05:55 WBC RBC Hgb Hct MCV MCH MCHC RDW Plt Count MPV Absolute Neuts (auto) Neutrophils % Lymphocytes % Monocytes % Eosinophils % Basophils % Nucleated RBC % Anticoagulation Therapy Puncture Site ABG pH ABG pCO2 at Pt Temp ABG pO2 at Pt Temp ABG HCO3 ABG O2 Sat (Measured) ABG O2 Content ABG Base Excess Farrukh Test O2 Delivery Device Oxygen Flow Rate Vent Mode Vent Rate Mechanical Rate Pressure Support Vent Sodium 134 L Potassium 3.4 L Chloride 100 Carbon Dioxide 29 Anion Gap 6 L BUN 7.7 Creatinine 0.5 L Est GFR (CKD-EPI)AfAm 129.05 Est GFR (CKD-EPI)NonAf 111.35 Random Glucose 123 H Calcium 8.0 L Phosphorus 3.2 Magnesium 2.0 Total Bilirubin 1.0 GGT AST 25 ALT 26 Alkaline Phosphatase 270 H Total Protein 5.6 L Albumin 1.8 L ASSESSMENT AND PLAN: SVT s/p DCCV Advanced NSCLC (Squamous cell) s/p chemo Low clinical impression of PNA Chronic Pain/Methadone Maintenance Anemia Smoker - rate control - IVF - To discuss with ID ABX coverage - monitor H/H - Normal transfusion threshold - DVT prophylaxis Dr Can
[2019-01-26] MEDS: GABAPENTIN 300 MG CAPSULE (FP) PO PRN ×2 (11:31→20:08)
--- NOTE | 2019-01-26 12:38 | PN ---
Teaching Attending Note Name of Resident: Ney Duong ATTENDING PHYSICIAN STATEMENT I saw and evaluated the patient. I reviewed the resident's note and discussed the case with the resident. I agree with the resident's findings and plan as documented. SUBJECTIVE:had episode of CP last night but says its improved now. denies Cp, SOb, fever, chills, N/V/C/D OBJECTIVE: Last Vital Signs Temp Pulse Resp BP Pulse Ox 98.3 F 98 H 20 115/67 97 01/26/19 09:03 01/26/19 09:03 01/26/19 09:03 01/26/19 09:03 01/26/19 09:00 General NAD, slow to respond CV S1 S2 tachy Lungs CTA B/L no wheezing/rales/rhonchi Abdomen soft NT/ND Extremities 1+ pitting edema, no calf tenderness LLE has skin tear slightly tender no surrounding erythema ASSESSMENT AND PLAN: 68yo M with PMH RUL squamous carcinoma on chemo and immunotherapy, SBO s/o bowel resection, polysubstance use, chronic pain syndrome on methadone was sent from Dr Aviles office for fatigue and dyspnea as he was noted to be anemic in the office(no documentation of lab values there) and found to be in SVT requiring adenosine and synchronized cardioversion 1. SVT- s/p adenosine 6mg then 12mg and then cardioverted with 50jules. remains in sinus tachycardia but rate improved. concern for PE given risk factors. unable to complete CTA and echo due to not cooperating. is now agreeable to echo. will d/w CTA to see if he is willing. on metoprolol. cardio onboard. cont cardiac monitoring. TSH WNL. 2. acute metabolic encephalopathy- can be medication induced (oxycodone dose increased) vs hyperapnia. currently alert but slow to respond. oxy was held. will re-start at lower dose and titrate as needed. 3. Anemia- doubt this is causing symptoms. received 1 unit PRBC. hgb stable. monitor and trend. 4. r/o Post-obstructive PNA- doubt infectious cause of symptoms. all cx negative. will d/c abx. ID consulted 5. elevated alk phos- questionable spinal involvement earlier this year. GGT high. previous imaging did not show liver pathology. will obtain u/s to evaluate but will wait as not emergent and pt seems to be overwhlemed and reluctant to have more testing. 6. RUL squamous carcinoma- oncology follow up 7. SBO s/p resection 8. Chronic pain syndrome- on methadone. confirm dose 9. DVT ppx- lovenox
[2019-01-26] MEDS ORDERED: POTASSIUM CHLORIDE TABS 20 MEQ TABLET.ER (FP) PO ONE (13:15)
--- NOTE | 2019-01-26 14:05 | EKG ---
Test Reason : Blood Pressure : / mmHG Vent. Rate : 087 BPM Atrial Rate : 087 BPM P-R Int : 166 ms QRS Dur : 088 ms QT Int : 392 ms P-R-T Axes : 041 009 026 degrees QTc Int : 471 ms NORMAL SINUS RHYTHM NORMAL ECG WHEN COMPARED WITH ECG OF 24-JAN-2019 04:17, PREMATURE ATRIAL COMPLEXES ARE NO LONGER PRESENT Confirmed by ANNELIESE VIGIL MD ([id number]) on 01/26/2019 2:04:33 PM Referred By: Confirmed By:ANNELIESE VIGIL MD
[2019-01-26] MEDS: oxyCODONE HCL 5 MG TABLET PO PRN ×2 (14:59→20:08)
[2019-01-26] MEDS: KCL 10 MEQ IVPB 10 MEQ/100 ML INFUS.BAG IVPB SCH ×2 (15:00→16:16)
--- NOTE | 2019-01-26 16:06 | ECHO ---
Name: CHAZ INFANTE Exam:Adult Echocardiogram Study Date: 01/26/2019 01:37 PM Age: 68 yrs Reason For Study: ATRIAL FLUTTER Height: 69 in Weight: 123 lb BSA: 1.7 m2 MMode/2D Measurements & Calculations IVSd: 0.79 cm Ao root diam: 3.1 cm LVIDd: 5.0 cm LVIDs: 3.3 cm LVPWd: 0.76 cm EDV(Teich): 120.6 ml LVOT diam: 2.0 cm ESV(Teich): 42.6 ml Doppler Measurements & Calculations MV E max juan f: 66.6 cm/sec Ao V2 max: 135.5 cm/sec MV A max juan f: 109.1 cm/sec Ao max P.3 mmHg MV E/A: 0.61 Ao V2 mean: 108.4 cm/sec MV dec time: 0.13 sec Ao mean P.2 mmHg Ao V2 VTI: 29.0 cm JOHN(I,D): 1.9 cm2 JOHN(V,D): 2.2 cm2 LV V1 max P.7 mmHg SV(LVOT): 55.4 ml LV V1 mean P.1 mmHg LV V1 max: 96.3 cm/sec LV V1 mean: 69.1 cm/sec LV V1 VTI: 18.2 cm TR max juan f: 233.5 cm/sec Med Peak E' Juan F: 6.7 cm/sec TR max P.8 mmHg Med E/e': 9.9 Lat Peak E' Juan F: 8.0 cm/sec Lat E/e': 8.3 Procedure A complete two-dimensional transthoracic echocardiogram was performed (2D, M-mode, Doppler and color flow Doppler). Left Ventricle The left ventricular size, thickness and function are normal. The left ventricular ejection fraction is normal. Ejection Fraction = 60-65%. The left ventricular wall motion is normal. Right Ventricle The right ventricle is normal in size and function. Atria Normal left and right atrial size and function. Mitral Valve There is no mitral regurgitation noted. Tricuspid Valve There is trace tricuspid regurgitation. There was insufficient TR detected to calculate RV systolic p ressure. Aortic Valve No hemodynamically significant valvular aortic stenosis. No aortic regurgitation is present. Pulmonic Valve There is no pulmonic valvular regurgitation. Great Vessels The aortic root is normal size. Pericardium/Pleura There is no pericardial effusion. Interpretation Summary The left ventricular size, thickness and function are normal The right ventricle is normal in size and function. There is trace tricuspid regurgitation. MD Sascha Mcpherson 01/26/2019 04:06 PM
--- NOTE | 2019-01-26 16:54 | PN ---
Physical Exam: SUBJECTIVE: 68 y/o male with PMH RIGHT squamous cell carcinoma, SBO s/p bowel resection, polysubstance use, and chronic pain syndrome on methadone sent to ED for symptomatic anemia. Pt is known to Dr. Aviles and was experiencing SOB, tiredness, and lethargy, with office Hb 7.4. Pt also c/o LE swelling. He was recently started on immunotherapy and requires different thresholds for transfusion. Pt was sent to ED where he received x1 unit PRBC. He became more symptomatic and demonstrated atrial flutter and tachycardic to 150s. Pt given adenosine x2, and lopressor to no response and then 50 J electric cardioversion delivered. Pt was transfered to ICU. He has stabilized and is now located on the medical floor for telemetry. Overnight pt experienced CP and was given tylenol. No acute changes on tele monitor. He was tachycardic to 125 and afebrile overnight. Pt seen at bedside, sitting up, eating breakfast. Pt is more communicative today. He replies in 1-2 word answers. He denies HOWE, CP, SOB. OBJECTIVE: Vital Signs Period Temp Pulse Resp BP Sys/Seo Pulse Ox Last 24 Hr 97.8 F-99.6 F 91-125 20-20 100-137/56-75 96-97 GENERAL: Alert and orientable. In no acute distress. HEAD: NCAT EYES: CARLITOS, EOMI, conjunctiva clear. ENT: Ears normal, nares patent, oropharynx clear without exudates. Moist mucous membranes. NECK: Normal range of motion, supple without lymphadenopathy, JVD, or masses. LUNGS: RUL wheezes with dcreased air entry. LLL crackles. No accessory muscle use. HEART: RRR s1 s2 ABDOMEN: Soft, BS present in all 4 quadrants, non-distended, no JVD, MUSCULOSKELETAL: No bony deformities or tenderness. No CVA tenderness. UPPER EXTREMITIES: 2+ pulses, warm, well-perfused. No cyanosis. No clubbing. No peripheral edema. LOWER EXTREMITIES: 1+ edema BL. 2+ pulses, warm, well-perfused. No calf tenderness. No peripheral edema. NEUROLOGICAL: Cranial nerves II-XII intact. Normal speech. Gait not appreciated. PSYCHIATRIC: Cooperative. Poor eye contact. Appropriate mood and affect. SKIN: Warm, dry, normal turgor, no rashes or lesions noted, normal capillary refill. Laboratory Results - last 24 hr 01/25/19 01/26/19 01/26/19 17:45 05:55 05:55 WBC 10.3 H RBC 2.76 L Hgb 8.3 L Hct 25.3 L MCV 91.5 MCH 30.0 MCHC 32.8 RDW 16.5 H Plt Count 149 MPV 7.3 L Absolute Neuts (auto) 9.2 H Neutrophils % 89.4 H Lymphocytes % 2.1 L Monocytes % 7.7 Eosinophils % 0.4 D Basophils % 0.4 Nucleated RBC % 0 Sodium 134 L Potassium 3.4 L Chloride 100 Carbon Dioxide 29 Anion Gap 6 L BUN 7.7 Creatinine 0.5 L Est GFR (CKD-EPI)AfAm 129.05 Est GFR (CKD-EPI)NonAf 111.35 Random Glucose 123 H Calcium 8.0 L Phosphorus 3.2 Magnesium 2.0 Total Bilirubin 1.0 GGT 189 H AST 25 ALT 26 Alkaline Phosphatase 270 H Total Protein 5.6 L Albumin 1.8 L Active Medications Docusate Sodium (Colace -) 300 mg PO HS [facility] Last Admin: 01/25/19 23:42 Dose: 300 mg Enoxaparin Sodium (Lovenox -) 40 mg SQ DAILY [facility] Last Admin: 01/26/19 09:51 Dose: 40 mg Gabapentin (Neurontin -) 300 mg PO BID PRN PRN Reason: PAIN Last Admin: 01/26/19 20:08 Dose: 300 mg Sodium Chloride (Normal Saline -) 1,000 mls @ 75 mls/hr IV ASDIR [facility] Last Admin: 01/26/19 19:46 Dose: Not Given Methadone HCl (Dolophine -) 10 mg PO Q12H [facility] Last Admin: 01/26/19 11:31 Dose: 10 mg Metoprolol Tartrate (Lopressor -) 25 mg PO BID [facility] Last Admin: 01/26/19 09:51 Dose: 25 mg Metoprolol Tartrate (Lopressor Injection -) 5 mg IVPUSH Q6H PRN PRN Reason: TACHYCARDIA Last Admin: 01/25/19 16:12 Dose: 5 mg Oxycodone HCl (Roxicodone -) 5 mg PO Q4H PRN PRN Reason: PAIN LEVEL 4 - 6 Last Admin: 01/26/19 20:08 Dose: 5 mg Polyethylene Glycol (Miralax (For Daily Use) -) 17 gm PO BID [facility] Last Admin: 01/26/19 09:53 Dose: 17 gm ASSESSMENT/PLAN: 68 y/o male with PMH RIGHT squamous cell carcinoma, SBO s/p bowel resection, polysubstance use, and chronic pain syndrome on methadone sent to ED for symptomatic anemia. Pt is known to Dr. Aviles and was experiencing SOB, tiredness , and lethargy, with office Hb 7.4 requiring transfusion to maintain specific parameters. Pt recieved PRBC in ED. Pt entered SVT and given adenosine, lopressor, and 50 J cardioversion. Pt transfered from ICU to medical floor for telemetry. # Sepsis 2/2 possible pulmonary embolism vs possible obstructive pneumonia - CXR: Prominent mediastinum, RUL cavitary mass, RIGHT early infiltrate, increasing atelectatic changes - Pt agreeable to bedside echo; refuses CTA (states he cannot breath while supine) - Will monitor off abx - Cultures NEG (urine, blood, sputum) - Pt has episodes of tachycardia; less frequent now - TSH WNL # Cough r/o possible pulmonary embolism - Leg pain - Unable to complete CTA 2/2 pt not cooperating - NEG POCUS/doppler - SOB and non-bloody cough - F/u CTA if acquired - Metoprolol 25 q6h IVBP *if* HR > 120 # Acute metabolic encephalopathy - Possibly medication induced (oxycodone dose increased and given ativan 01/24): reduced to 5mg - Possibly hypercapnia: ABG pending - Recent MRI that was negative for mets or acute pathology and low concern for CVA at this time # SVT - New atrial flutter in ED, resolved - Currently sinus tachycardia in 110s. - Cont. telemetry monitoring in ICU - Echo pending - TSH, free t4 pending - Cardio consulted: > Cont. Metoprolol 25 bid > Unable to perform echo (pt not cooperating). Echocardiography to assess LV/ RV and valvular function once patient cooperates > Cont. telemetry > Transfuse PRBC as needed and follow CBC # Anemia - Hemodynamically stable with no signs of bleeding - H&H 8.3/25.3 today - s/p 1 unit PRBC signs of bleeding. received 1 unit PRBC - Fe studies in 3 days - Most likely 2/2 chronic disease/cancer # Squamous cell carcinoma - Primary heme/onc consulted (Dr. Aviles) - Oxycodone 5mg for pain - Last head MRI- 12/13 - no mets # Elevated alk phos - Unknown if have bone involvement from malignancy - Elevated GGT 189 - No abdominal pain - F/u chemistry # F/E/N - N/S - Mg, Phos ordered - Regular diet # DVT prophylaxis - Lovenox # Disposition - Cont. telemetry Ney Duong MD Visit type - Emergency Visit Emergency Visit: No - New Patient This patient is new to me today: No - Critical Care Critical Care patient: No - Discharge Referral Referred to [facility] Med P.C.: No ATTENDING PHYSICIAN STATEMENT I saw and evaluated the patient. I reviewed the resident's note and discussed the case with the resident. I agree with the resident's findings and plan as documented. SUBJECTIVE: OBJECTIVE: ASSESSMENT AND PLAN:
[2019-01-26] MEDS: DOCUSATE SODIUM 100 MG CAPSULE (FP) PO SCH (22:38)
[2019-01-27] MEDS: METHADONE HCL 10 MG TABLET PO SCH ×2 (00:11→13:32)
[2019-01-27] MEDS: oxyCODONE HCL 5 MG TABLET PO PRN ×3 (00:11→19:14)
[2019-01-27 07:56] LABS: ALBUMIN 2.1 g/dl (3.4-5.0); BILIRUBIN,TOTAL 0.9 mg/dL (0.2-1); BLOOD UREA NITROGEN 8.3 mg/dL (7-18); CALCIUM 8.2 mg/dL (8.5-10.1); CREATININE 0.4 mg/dL (0.55-1.3); MAGNESIUM 1.8 mg/dL (1.8-2.4); PHOSPHOROUS 3.1 mg/dL (2.5-4.9); POTASSIUM 3.7 mmol/L (3.5-5.1)
[2019-01-27 07:59] LABS: BASO % 0.1 % (0-2.0); EOS % 0.1 % (0-4.5); HEMATOCRIT 25.8 % (35.4-49); HEMOGLOBIN 8.4 GM/dL (11.7-16.9); LYMPH % 1.6 % (8-40); MCH 29.6 pg (25.7-33.7); MCHC 32.6 g/dl (32.0-35.9); MEAN CELL VOLUME 90.8 fl (80-96); MEAN PLT VOLUME 7.3 fl (7.5-11.1); MONO % 5.6 % (3.8-10.2); NEUT % 92.6 % (42.8-82.8); PLATELET COUNT 158 K/MM3 (134-434); RBC 2.83 M/mm3 (4.00-5.60); RDW 16.4 % (11.9-15.9); WHITE BLOOD COUNT 11.5 K/mm3 (4.0-10.0)
[2019-01-27] MEDS: ENOXAPARIN NA (PORCINE) 40 MG/0.4 ML DISP.SYRIN SQ SCH (10:13)
[2019-01-27] MEDS: POLYETHYLENE GLYCOL 3350 119 GM BTL PO SCH ×2 (10:13→22:31)
[2019-01-27] MEDS: METOPROLOL TARTRATE 25 MG TABLET (FP) PO SCH ×2 (10:13→22:30)
[2019-01-27] MEDS ORDERED: METHADONE HCL 10 MG TABLET PO ONE (10:59)
[2019-01-27 11:21] LABS: ANISOCYTOSIS 0; MACROCYTOSIS 0
[2019-01-27 11:44] LABS: PLATELET ESTIMATE ADEQUATE
--- NOTE | 2019-01-27 11:45 | PN ---
Progress Note, Physician History of Present Illness: Remains in SR, confused sitting in wheelchair. - Current Medication List Current Medications: Active Medications Albuterol/Ipratropium (Duoneb -) 1 amp NEB Q6H PRN PRN Reason: SHORTNESS OF BREATH Docusate Sodium (Colace -) 300 mg PO HS [facility] Last Admin: 01/26/19 22:38 Dose: 300 mg Enoxaparin Sodium (Lovenox -) 40 mg SQ DAILY [facility] Last Admin: 01/27/19 10:13 Dose: 40 mg Gabapentin (Neurontin -) 300 mg PO BID PRN PRN Reason: PAIN Last Admin: 01/26/19 20:08 Dose: 300 mg Sodium Chloride (Normal Saline -) 1,000 mls @ 75 mls/hr IV ASDIR [facility] Last Admin: 01/26/19 22:41 Dose: 75 mls/hr Lidocaine (Lidoderm Patch -) 1 patch TP DAILY [facility] Methadone HCl (Dolophine -) 10 mg PO Q12H [facility] Last Admin: 01/27/19 00:11 Dose: 10 mg Methadone HCl (Dolophine -) 5 mg PO ONCE ONE Stop: 01/27/19 11:00 Metoprolol Tartrate (Lopressor Injection -) 5 mg IVPUSH Q6H PRN PRN Reason: TACHYCARDIA Last Admin: 01/25/19 16:12 Dose: 5 mg Metoprolol Tartrate (Lopressor -) 50 mg PO BID [facility] Miscellaneous (Lidoderm Patch Removal) 1 each MC DAILY@2200 [facility] Oxycodone HCl (Roxicodone -) 5 mg PO Q4H PRN PRN Reason: PAIN LEVEL 4 - 6 Last Admin: 01/27/19 05:35 Dose: 5 mg Polyethylene Glycol (Miralax (For Daily Use) -) 17 gm PO BID [facility] Last Admin: 01/27/19 10:13 Dose: 17 gm - Objective Vital Signs: Vital Signs Temperature 99.4 F 01/27/19 05:30 Pulse Rate 110 H 01/27/19 05:30 Respiratory Rate 20 01/27/19 05:30 Blood Pressure 139/79 01/27/19 05:30 O2 Sat by Pulse Oximetry (%) 96 01/26/19 21:00 Constitutional: Yes: No Distress, Calm, Thin Neck: Yes: Supple Cardiovascular: Yes: Regular Rate and Rhythm Respiratory: Yes: Regular, CTA Bilaterally Gastrointestinal: Yes: Normal Bowel Sounds, Soft Edema: No Labs: CBC, BMP 01/27/19 06:10 01/27/19 06:10 - ....Imaging EKG: Report Reviewed (Tele: NSR) Problem List - Problems (1) Anemia Code(s): D64.9 - ANEMIA, UNSPECIFIED Qualifiers: Anemia type: unspecified type Qualified Code(s): D64.9 - Anemia, unspecified (2) Generalized weakness Code(s): R53.1 - WEAKNESS (3) Hyponatremia Code(s): E87.1 - HYPO-OSMOLALITY AND HYPONATREMIA (4) Lung cancer Code(s): C34.90 - MALIGNANT NEOPLASM OF UNSP PART OF UNSP BRONCHUS OR LUNG (5) PSVT (paroxysmal supraventricular tachycardia) Code(s): I47.1 - SUPRAVENTRICULAR TACHYCARDIA Assessment/Plan 01/26/2019 Echocardiography: Normal LV and RV size and fxn tr TR 1. PSVT s/p adenosine and cardioversion to sinus tachycardia 2. Squamous cell CA of lung s/p chemotherapy and radiation therapy 3. History of pneumonia 4. Anemia s/p PRBC transfusion 5. Generalized weakness due to above 6. Organic brain syndrome 7. Hyponatremia 8. Abnormal TFT suggests hyperthyroid state PLAN: 1. Continue Metoprolol 25 bid 2. Continue to monitor telemetry 3. Transfuse PRBC as needed and follow CBC 4. Monitor NA and correct 5. DVT prophylaxis 6. Completed empiric antibiotic coverage, BD and O2 as needed
--- NOTE | 2019-01-27 11:54 | PN ---
Teaching Attending Note Name of Resident: Ney Duong ATTENDING PHYSICIAN STATEMENT I saw and evaluated the patient. I reviewed the resident's note and discussed the case with the resident. I agree with the resident's findings and plan as documented. SUBJECTIVE:c/o back pain. denies CP, SOB, fever, chills or cough on most questions keeps responding back pain OBJECTIVE: Last Vital Signs Temp Pulse Resp BP Pulse Ox 99.4 F 110 H 20 139/79 96 01/27/19 05:30 01/27/19 05:30 01/27/19 05:30 01/27/19 05:30 01/26/19 21:00 General NAD, appear a lot more alert today and less drowsy CV S1 S2 tachy Lungs CTA B/L no wheezing/rales/rhonchi Abdomen soft NT/ND Extremities 1+ pitting edema, no calf tenderness LLE has skin tear slightly tender no surrounding erythema back point tenderness on cervical spine ASSESSMENT AND PLAN: 68yo M with PMH RUL squamous carcinoma on chemo and immunotherapy, SBO s/o bowel resection, polysubstance use, chronic pain syndrome on methadone was sent from Dr Aviles office for fatigue and dyspnea as he was noted to be anemic in the office(no documentation of lab values there) and found to be in SVT requiring adenosine and synchronized cardioversion 1. SVT- s/p adenosine 6mg then 12mg and then cardioverted with 50jules. remains in sinus tachycardia but rate improved. will increase metoprolol. some of tachycardia is liekly due to pain which will need to be addressed. echo done awaiting read. refusing to lay for CTA at this time to r/o PE. low suspicion due to improvement will forgo further testing at this time. doppler negative. cardio onboard. cont cardiac monitoring. TSH WNL. 2. acute metabolic encephalopathy- can be medication induced (oxycodone dose increased) vs hyperapnia. currently alert. avoid sedation with pain medication as likely big contributer. 3. back pain- diffuse pain but appears back to be biggest concern today. as per old records was unclear if pt had bone mets. will need to verify with oncology if PET scan or other imaging was done to confirm this. with increased dose of oxy pt was very lethargic. will give methadone 5mg x1 and monitor mental status. lidoderm patch to back. will consult pain management to help with methadone and pain management. 4. Anemia- doubt this is causing symptoms. received 1 unit PRBC. hgb stable. monitor and trend. 5. r/o Post-obstructive PNA- doubt infectious cause of symptoms. all cx negative. off abx. ID consulted 6. elevated alk phos- questionable spinal involvement earlier this year. GGT high. previous imaging did not show liver pathology. RUQ u/s to evaluate 7. RUL squamous carcinoma- oncology follow up 8. SBO s/p resection 9. Chronic pain syndrome- on methadone. confirm dose 10. DVT ppx- lovenox
[2019-01-27] MEDS: LIDOCAINE 5% TOPICAL PATCH TP SCH (13:33)
--- NOTE | 2019-01-27 13:43 | PN ---
Physical Exam: SUBJECTIVE: 68 y/o male with PMH RIGHT squamous cell carcinoma, SBO s/p bowel resection, polysubstance use, and chronic pain syndrome on methadone sent to ED for symptomatic anemia. Pt is known to Dr. Aviles and was experiencing SOB, tiredness, and lethargy, with office Hb 7.4. Pt also c/o LE swelling. He was recently started on immunotherapy and requires different thresholds for transfusion. Pt was sent to ED where he received x1 unit PRBC. He became more symptomatic and demonstrated atrial flutter and tachycardic to 150s. Pt given adenosine x2, and lopressor to no response and then 50 J electric cardioversion delivered. Pt was transfered to ICU. He has stabilized and is now located on the medical floor for telemetry. There were no significant occurrences overnight. Afebrile. Still tachycardic to 110s with one reading of 125. Pt seen at bedside, sitting up with posi vest on, agitated, attempting get out of bed. Pt back to baseline as observed during this admission. He reports that he only has some neck pain. He denies HOWE, CP, SOB. OBJECTIVE: Vital Signs Period Temp Pulse Resp BP Sys/Seo Pulse Ox Last 24 Hr 99.0 F-99.6 F 107-125 19-20 125-150/68-84 96 GENERAL: AOx3, agitated but in no acute distress. HEAD: NCAT EYES: CARLITOS, EOMI, conjunctiva clear. ENT: Ears normal, nares patent, oropharynx clear without exudates. Moist mucous membranes. NECK: Normal range of motion, supple without lymphadenopathy, JVD, or masses. LUNGS: RUL wheezes with dcreased air entry. LLL crackles. No accessory muscle use. HEART: RRR s1 s2 ABDOMEN: Soft, BS present in all 4 quadrants, non-distended, no JVD, MUSCULOSKELETAL: No bony deformities or tenderness. No CVA tenderness. UPPER EXTREMITIES: BL hand swelling, 2+ pulses, warm, well-perfused. No cyanosis. Clubbing. No peripheral edema. LOWER EXTREMITIES: 1+ edema BL. 2+ pulses, warm, well-perfused. No calf tenderness. No peripheral edema. NEUROLOGICAL: Cranial nerves II-XII intact. Normal speech. Gait not appreciated. PSYCHIATRIC: Cooperative. Poor eye contact. Appropriate mood and affect. SKIN: Warm, dry, normal turgor, no rashes or lesions noted, normal capillary refill. Laboratory Results - last 24 hr 01/23/19 01/27/19 01/27/19 21:20 06:10 06:10 WBC 11.5 H RBC 2.83 L Hgb 8.4 L Hct 25.8 L MCV 90.8 MCH 29.6 MCHC 32.6 RDW 16.4 H Plt Count 158 MPV 7.3 L Absolute Neuts (auto) 10.7 H Neutrophils % 92.6 H Neutrophils % (Manual) 91.7 H Band Neutrophils % 2.1 Lymphocytes % 1.6 L D Lymphocytes % (Manual) 1.0 L D Monocytes % 5.6 Monocytes % (Manual) 5 Eosinophils % 0.1 Eosinophils % (Manual) 0.0 Basophils % 0.1 Basophils % (Manual) 0.0 Myelocytes % (Man) 0 Promyelocytes % (Man) 0 Blast Cells % (Manual) 0 Nucleated RBC % 0 Metamyelocytes 0 Hypochromia 0 Platelet Estimate Adequate Polychromasia 0 Poikilocytosis 0 Anisocytosis 0 Microcytosis 0 Macrocytosis 0 Sodium 133 L Potassium 3.7 Chloride 98 Carbon Dioxide 27 Anion Gap 8 BUN 8.3 Creatinine 0.4 L Est GFR (CKD-EPI)AfAm 141.45 Est GFR (CKD-EPI)NonAf 122.04 Random Glucose 113 H Calcium 8.2 L Phosphorus 3.1 Magnesium 1.8 Total Bilirubin 0.9 AST 28 ALT 28 Alkaline Phosphatase 281 H Total Protein 6.0 L Albumin 2.1 L Blood Type A POSITIVE Antibody Screen Negative Crossmatch See Detail Active Medications Acetaminophen (Tylenol -) 650 mg PO Q6H PRN PRN Reason: FEVER Last Admin: 01/28/19 10:28 Dose: 650 mg Albuterol/Ipratropium (Duoneb -) 1 amp NEB Q6H PRN PRN Reason: SHORTNESS OF BREATH Last Admin: 01/27/19 21:05 Dose: 1 amp Budesonide/Formoterol Fumarate (Symbicort 80/4.5mcg -) 2 puff IH BID [facility] Last Admin: 01/28/19 10:20 Dose: 2 puff Docusate Sodium (Colace -) 300 mg PO HS [facility] Last Admin: 01/27/19 22:30 Dose: 300 mg Enoxaparin Sodium (Lovenox -) 40 mg SQ DAILY [facility] Last Admin: 01/28/19 10:21 Dose: 40 mg Ferrous Gluconate (Fergon -) 324 mg PO DAILY [facility] Last Admin: 01/28/19 10:28 Dose: 324 mg Gabapentin (Neurontin -) 300 mg PO BID PRN PRN Reason: PAIN Last Admin: 01/27/19 19:14 Dose: 300 mg Sodium Chloride (Normal Saline -) 1,000 mls @ 75 mls/hr IV ASDIR [facility] Last Admin: 01/28/19 18:36 Dose: Not Given Lidocaine (Lidoderm Patch -) 1 patch TP DAILY [facility] Last Admin: 01/28/19 10:27 Dose: 1 patch Lorazepam (Ativan Injection -) 0.5 mg IM TID PRN PRN Reason: ANXIETY Last Admin: 01/28/19 13:32 Dose: 0.5 mg Methadone HCl (Dolophine -) 10 mg PO Q12H [facility] Last Admin: 01/28/19 12:20 Dose: 10 mg Methylprednisolone Sodium Succinate (Solu-Medrol -) 40 mg IVPUSH Q8H-IV [facility] Last Admin: 01/28/19 17:21 Dose: 40 mg Metoprolol Tartrate (Lopressor Injection -) 5 mg IVPUSH Q6H PRN PRN Reason: TACHYCARDIA Last Admin: 01/25/19 16:12 Dose: 5 mg Metoprolol Tartrate (Lopressor -) 50 mg PO BID [facility] Last Admin: 01/28/19 10:28 Dose: 50 mg Miscellaneous (Lidoderm Patch Removal) 1 each MC DAILY@2200 [facility] Last Admin: 01/27/19 22:31 Dose: Not Given Non-Formulary Medication (Cannabidiol (Cbd) Extract) 0.2 ml PO BID [facility] Oxycodone HCl (Roxicodone -) 5 mg PO Q4H PRN PRN Reason: PAIN LEVEL 4 - 6 Last Admin: 01/28/19 10:28 Dose: 5 mg Pantoprazole Sodium (Protonix -) 40 mg PO DAILY [facility] Last Admin: 01/28/19 10:28 Dose: 40 mg Polyethylene Glycol (Miralax (For Daily Use) -) 17 gm PO BID [facility] Last Admin: 01/28/19 10:29 Dose: 17 gm Tamsulosin HCl (Flomax -) 0.4 mg PO BID [facility] Last Admin: 01/28/19 10:28 Dose: 0.4 mg ASSESSMENT/PLAN: 68 y/o male with PMH RIGHT squamous cell carcinoma, SBO s/p bowel resection, polysubstance use, and chronic pain syndrome on methadone sent to ED for symptomatic anemia. Pt is known to Dr. Aviles and was experiencing SOB, tiredness , and lethargy, with office Hb 7.4 requiring transfusion to maintain specific parameters. Pt recieved PRBC in ED. Pt entered SVT and given adenosine, lopressor, and 50 J cardioversion. Pt transfered from ICU to medical floor for telemetry. # Sepsis 2/2 possible pulmonary embolism vs possible obstructive pneumonia - CXR: Prominent mediastinum, RUL cavitary mass, RIGHT early infiltrate, increasing atelectatic changes - Pt agreeable to bedside echo; refuses CTA (states he cannot breath while supine) but will forgo at present time - Will monitor off abx - Cultures NEG (urine, blood, sputum) - Pt has episodes of tachycardia; less frequent now - TSH WNL - Increase metoprolol # Cough r/o possible pulmonary embolism - Leg pain - Unable to complete CTA 2/2 pt not cooperating; will hold for now - NEG POCUS/doppler - SOB and non-bloody cough - F/u CTA if acquired - Metoprolol 50 mg PO BID and add 5mg IVBP *if* HR > 120 # Acute metabolic encephalopathy - Possibly medication induced (oxycodone dose increased and given ativan 01/24): reduced to 5mg - Possibly hypercapnia: ABG shows alkalosis 7.50 pH - Recent MRI that was negative for mets or acute pathology and low concern for CVA at this time # SVT - New atrial flutter in ED, resolved - Currently sinus tachycardia in 110s. - Cont. telemetry monitoring in ICU - Echo pending - TSH, free t4 pending - Cardio consulted: > Cont. Metoprolol 25 bid > Unable to perform echo (pt not cooperating). Echocardiography to assess LV/ RV and valvular function once patient cooperates > Cont. telemetry > Transfuse PRBC as needed and follow CBC # Anemia - Hemodynamically stable with no signs of bleeding - H&H 8.3/25.3 today - s/p 1 unit PRBC signs of bleeding. received 1 unit PRBC - Fe studies in 3 days - Most likely 2/2 chronic disease/cancer # Squamous cell carcinoma - Primary heme/onc consulted (Dr. Aviles) - Oxycodone 5mg for pain - Last head MRI- 12/13 - no mets # Elevated alk phos - Unknown if have bone involvement from malignancy - Elevated GGT 189 - No abdominal pain - F/u chemistry # F/E/N - N/S - Mg, Phos ordered - Regular diet # DVT prophylaxis - Lovenox # Disposition - Cont. telemetry Ney Duong MD Visit type - Emergency Visit Emergency Visit: No - New Patient This patient is new to me today: No - Critical Care Critical Care patient: No - Discharge Referral Referred to [facility] Med P.C.: No ATTENDING PHYSICIAN STATEMENT I saw and evaluated the patient. I reviewed the resident's note and discussed the case with the resident. I agree with the resident's findings and plan as documented. SUBJECTIVE: OBJECTIVE: ASSESSMENT AND PLAN:
[2019-01-27] MEDS: SODIUM CHLORIDE 1,000 ML IV SCH (19:02)
[2019-01-27] MEDS: GABAPENTIN 300 MG CAPSULE (FP) PO PRN (19:14)
--- NOTE | 2019-01-27 20:25 | PN ---
Progress Note (short form) - Note Progress Note: PAtient seen and examined Confused Following meds AFVSS Cor: RSR, No murmurs, No gallops Lungs: decreased at bases Abd: Soft, Normal bowel sounds, No organomegaly Ext:No significant edema Labs/Meds reviewed A/P Pt is a 68 y/o M with Rt. lung squamous cell cancer, s/p weekly carbo/taxol, s/ p 1 cycle pembrolizumab, comes in with ,SVT, anemia Also severe Rt. upperchest/shoulder pain--on methadone/oxycodone/marinol On steroids confusion--? pain meds ? steroids check screening head CT 12/12/18 brain MRI is negative neuroconsult
[2019-01-27] MEDS: ALBUTEROL SO4 2.5/IPRATROPIUM 0.5 INH SOL 3 ML VIAL.NEB. NEB PRN (21:05)
[2019-01-27] MEDS: DOCUSATE SODIUM 100 MG CAPSULE (FP) PO SCH (22:30)
[2019-01-27] MEDS: LIDOCAINE PATCH REMOVAL MC SCH (22:31)
[2019-01-27] MEDS: ACETAMINOPHEN 325 MG TABLET (FP) PO PRN (22:32)
[2019-01-28] MEDS: METHADONE HCL 10 MG TABLET PO SCH ×3 (01:04→23:43)
[2019-01-28] MEDS: oxyCODONE HCL 5 MG TABLET PO PRN ×3 (03:42→22:15)
--- NOTE | 2019-01-28 08:04 | PN ---
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 Aviles who presents with fatigue lethargy and SOB. Was found to be anemic in office told to come to ER. Patient developed SVT converted with 1 dose of adenosine - Current Medication List Current Medications: Active Medications Acetaminophen (Tylenol -) 650 mg PO Q6H PRN PRN Reason: FEVER Last Admin: 01/27/19 22:32 Dose: 650 mg Albuterol/Ipratropium (Duoneb -) 1 amp NEB Q6H PRN PRN Reason: SHORTNESS OF BREATH Last Admin: 01/27/19 21:05 Dose: 1 amp Docusate Sodium (Colace -) 300 mg PO HS [facility] Last Admin: 01/27/19 22:30 Dose: 300 mg Enoxaparin Sodium (Lovenox -) 40 mg SQ DAILY [facility] Last Admin: 01/27/19 10:13 Dose: 40 mg Gabapentin (Neurontin -) 300 mg PO BID PRN PRN Reason: PAIN Last Admin: 01/27/19 19:14 Dose: 300 mg Sodium Chloride (Normal Saline -) 1,000 mls @ 75 mls/hr IV ASDIR [facility] Last Admin: 01/27/19 19:02 Dose: 75 mls/hr Lidocaine (Lidoderm Patch -) 1 patch TP DAILY [facility] Last Admin: 01/27/19 13:33 Dose: 1 patch Methadone HCl (Dolophine -) 10 mg PO Q12H [facility] Last Admin: 01/28/19 01:04 Dose: 10 mg Metoprolol Tartrate (Lopressor Injection -) 5 mg IVPUSH Q6H PRN PRN Reason: TACHYCARDIA Last Admin: 01/25/19 16:12 Dose: 5 mg Metoprolol Tartrate (Lopressor -) 50 mg PO BID [facility] Last Admin: 01/27/19 22:30 Dose: 50 mg Miscellaneous (Lidoderm Patch Removal) 1 each MC DAILY@2200 [facility] Last Admin: 09/20/19 22:31 Dose: Not Given Oxycodone HCl (Roxicodone -) 5 mg PO Q4H PRN PRN Reason: PAIN LEVEL 4 - 6 Last Admin: 01/28/19 03:42 Dose: 5 mg Polyethylene Glycol (Miralax (For Daily Use) -) 17 gm PO BID [facility] Last Admin: 01/27/19 22:31 Dose: 17 gm - Objective Vital Signs: Vital Signs Temperature 98.9 F 01/28/19 06:00 Pulse Rate 110 H 01/28/19 06:00 Respiratory Rate 18 01/28/19 06:00 Blood Pressure 134/76 01/28/19 06:00 O2 Sat by Pulse Oximetry (%) 97 01/27/19 21:00 elderly man sick looking looks agittaed and confused Heent; mm dry anemia NECK; No JVd No Bruit CHest; B/L wheezes CVS: s1S2 r no m/g/r ABD: Non tender Bs + EXT: trace edema feet VISION SPECIALIST: agitated moving all extremities Labs: CBC, BMP 01/27/19 06:10 01/27/19 06:10 Problem List - Problems (1) Generalized weakness Assessment/Plan: Due to anemia and systemic sickness, H/H stable Code(s): R53.1 - WEAKNESS (2) Anemia Assessment/Plan: Chronic H/H are stable no active sourse of bleeding Code(s): D64.9 - ANEMIA, UNSPECIFIED Qualifiers: Anemia type: unspecified type Qualified Code(s): D64.9 - Anemia, unspecified (3) PSVT (paroxysmal supraventricular tachycardia) Assessment/Plan: Converted to NSR on Metoprolol Code(s): I47.1 - SUPRAVENTRICULAR TACHYCARDIA (4) Lung cancer Assessment/Plan: management as per Oncology recommendations Code(s): C34.90 - MALIGNANT NEOPLASM OF UNSP PART OF UNSP BRONCHUS OR LUNG (5) Sepsis Code(s): A41.9 - SEPSIS, UNSPECIFIED ORGANISM (6) Pain management Assessment/Plan: Chronic pain cont current pain meds. Code(s): R52 - PAIN, UNSPECIFIED (7) COPD exacerbation Assessment/Plan: B/L wheezing cont duoneb ad Advair and IV steroids PRN loraxzepalm for agitation. Code(s): J44.1 - CHRONIC OBSTRUCTIVE PULMONARY DISEASE W (ACUTE) EXACERBATION (8) Agitated Assessment/Plan: can bedue to CBD withdrawal patient was on CBD oil for pain control will ad Lorazepalm .5 mg q 8 hrly PRN F/U clinically. Code(s): R45.1 - RESTLESSNESS AND AGITATION
[2019-01-28] MEDS ORDERED: methylPREDNISolone NA SUCC 125 MG/2 ML VIAL IVPUSH SCH (10:00)
--- NOTE | 2019-01-28 10:01 | PN ---
Progress Note, Physician History of Present Illness: pulmonary alert,c/o sob,+ cough - Current Medication List Current Medications: Active Medications Acetaminophen (Tylenol -) 650 mg PO Q6H PRN PRN Reason: FEVER Last Admin: 01/27/19 22:32 Dose: 650 mg Albuterol/Ipratropium (Duoneb -) 1 amp NEB Q6H PRN PRN Reason: SHORTNESS OF BREATH Last Admin: 01/27/19 21:05 Dose: 1 amp Budesonide/Formoterol Fumarate (Symbicort 80/4.5mcg -) 2 puff IH BID [facility] Docusate Sodium (Colace -) 300 mg PO HS [facility] Last Admin: 01/27/19 22:30 Dose: 300 mg Enoxaparin Sodium (Lovenox -) 40 mg SQ DAILY [facility] Last Admin: 01/27/19 10:13 Dose: 40 mg Ferrous Gluconate (Fergon -) 324 mg PO DAILY [facility] Gabapentin (Neurontin -) 300 mg PO BID PRN PRN Reason: PAIN Last Admin: 01/27/19 19:14 Dose: 300 mg Sodium Chloride (Normal Saline -) 1,000 mls @ 75 mls/hr IV ASDIR [facility] Last Admin: 01/27/19 19:02 Dose: 75 mls/hr Lidocaine (Lidoderm Patch -) 1 patch TP DAILY [facility] Last Admin: 01/27/19 13:33 Dose: 1 patch Lorazepam (Ativan Injection -) 0.5 mg IM TID PRN PRN Reason: ANXIETY Methadone HCl (Dolophine -) 10 mg PO Q12H [facility] Last Admin: 01/28/19 01:04 Dose: 10 mg Methylprednisolone Sodium Succinate (Solu-Medrol -) 40 mg IVPUSH Q8H-IV [facility] Metoprolol Tartrate (Lopressor Injection -) 5 mg IVPUSH Q6H PRN PRN Reason: TACHYCARDIA Last Admin: 01/25/19 16:12 Dose: 5 mg Metoprolol Tartrate (Lopressor -) 50 mg PO BID [facility] Last Admin: 01/27/19 22:30 Dose: 50 mg Miscellaneous (Lidoderm Patch Removal) 1 each MC DAILY@2200 [facility] Last Admin: 01/27/19 22:31 Dose: Not Given Non-Formulary Medication (Cannabidiol (Cbd) Extract) 0.2 ml PO BID [facility] Oxycodone HCl (Roxicodone -) 5 mg PO Q4H PRN PRN Reason: PAIN LEVEL 4 - 6 Last Admin: 01/28/19 03:42 Dose: 5 mg Pantoprazole Sodium (Protonix -) 40 mg PO DAILY [facility] Polyethylene Glycol (Miralax (For Daily Use) -) 17 gm PO BID [facility] Last Admin: 01/27/19 22:31 Dose: 17 gm Tamsulosin HCl (Flomax -) 0.4 mg PO BID [facility] - Objective Vital Signs: Vital Signs Temperature 98.9 F 01/28/19 06:00 Pulse Rate 110 H 01/28/19 06:00 Respiratory Rate 18 01/28/19 06:00 Blood Pressure 134/76 01/28/19 06:00 O2 Sat by Pulse Oximetry (%) 97 01/27/19 21:00 Constitutional: Yes: Calm, Thin Eyes: Yes: WNL HENT: Yes: WNL Neck: Yes: WNL Cardiovascular: Yes: Regular Rate and Rhythm, Tachycardia, S1, S2 Respiratory: Yes: Rhonchi, Wheezes (scattered alphonso wheezes nd rhonchi) Gastrointestinal: Yes: Normal Bowel Sounds, Soft Extremities: Yes: WNL Edema: No Labs: Problem List - Problems (1) Agitated Code(s): R45.1 - RESTLESSNESS AND AGITATION (2) Anemia Code(s): D64.9 - ANEMIA, UNSPECIFIED Qualifiers: Anemia type: unspecified type Qualified Code(s): D64.9 - Anemia, unspecified (3) COPD exacerbation Code(s): J44.1 - CHRONIC OBSTRUCTIVE PULMONARY DISEASE W (ACUTE) EXACERBATION (4) Dysrhythmia Code(s): I49.9 - CARDIAC ARRHYTHMIA, UNSPECIFIED (5) Lung cancer Code(s): C34.90 - MALIGNANT NEOPLASM OF UNSP PART OF UNSP BRONCHUS OR LUNG (6) PSVT (paroxysmal supraventricular tachycardia) Code(s): I47.1 - SUPRAVENTRICULAR TACHYCARDIA Assessment/Plan ASSESSMENT AND PLAN: SVT s/p DCCV Advanced NSCLC (Squamous cell) s/p chemo Low clinical impression of PNA Chronic Pain/Methadone Maintenance Anemia Smoker - rate control - monitor H/H - Normal transfusion threshold - DVT prophylaxis - medrol - chest x-ray DR EDWARDS
[2019-01-28] MEDS ORDERED: PT OWN MED DRAWER 7, Y5N ONE (10:17)
[2019-01-28] MEDS: BUDESONIDE/FORMETEROL FUMARATE 80/4.5 mcg INHALER IH SCH ×2 (10:20→22:15)
[2019-01-28] MEDS: methylPREDNISolone NA SUCC 40 MG/1 ML VIAL IVPUSH SCH ×2 (10:21→17:21)
[2019-01-28] MEDS: ENOXAPARIN NA (PORCINE) 40 MG/0.4 ML DISP.SYRIN SQ SCH (10:21)
[2019-01-28] MEDS: LIDOCAINE 5% TOPICAL PATCH TP SCH (10:27)
[2019-01-28] MEDS: PANTOPRAZOLE 40 MG TABLET (FP) PO SCH (10:28)
[2019-01-28] MEDS: ACETAMINOPHEN 325 MG TABLET (FP) PO PRN (10:28)
[2019-01-28] MEDS: TAMSULOSIN HCL 0.4 MG CAP PO SCH ×2 (10:28→22:13)
[2019-01-28] MEDS: FERROUS GLUCONATE 324 MG TAB (FP) PO SCH (10:28)
[2019-01-28] MEDS: METOPROLOL TARTRATE 25 MG TABLET (FP) PO SCH ×2 (10:28→22:13)
[2019-01-28] MEDS: SODIUM CHLORIDE 1,000 ML IV SCH ×3 (10:29→23:47)
[2019-01-28] MEDS: POLYETHYLENE GLYCOL 3350 119 GM BTL PO SCH ×2 (10:29→22:13)
[2019-01-28 11:12] LABS: BASO % 0.6 % (0-2.0); HEMATOCRIT 28.9 % (35.4-49); HEMOGLOBIN 9.4 GM/dL (11.7-16.9); LYMPH % 1.7 % (8-40); MCH 29.6 pg (25.7-33.7); MCHC 32.6 g/dl (32.0-35.9); MEAN CELL VOLUME 90.7 fl (80-96); MEAN PLT VOLUME 7.5 fl (7.5-11.1); MONO % 4.9 % (3.8-10.2); NEUT % 92.8 % (42.8-82.8); PLATELET COUNT 166 K/MM3 (134-434); RBC 3.19 M/mm3 (4.00-5.60); RDW 16.3 % (11.9-15.9)
[2019-01-28 11:46] LABS: BLOOD UREA NITROGEN 9.7 mg/dL (7-18); CALCIUM 8.2 mg/dL (8.5-10.1); CREATININE 0.4 mg/dL (0.55-1.3); POTASSIUM 3.5 mmol/L (3.5-5.1)
[2019-01-28] MEDS: LORazepam 2 MG/ML SDV VIAL IM PRN ×2 (13:32→22:51)
[2019-01-28 14:46] LABS: ANISOCYTOSIS 0; MACROCYTOSIS 0; PLATELET ESTIMATE DECREASED
--- NOTE | 2019-01-28 19:27 | PN ---
Progress Note (short form) - Note Progress Note: Patient seen and examined Confused. Daughter thinks this is a consequence of opiates. Started medical marihuana recently ROS: cannot be elicited due to mental status Last Vital Signs Temp Pulse Resp BP Pulse Ox 98.4 F 88 18 117/77 97 01/28/19 14:34 01/28/19 14:34 01/28/19 14:34 01/28/19 14:34 01/28/19 09:00 HEENT: MMM Cor: RSR, No murmurs, No gallops Lungs: decreased at bases, mild wheezes/crackles at bases Abd: Soft, Normal bowel sounds, No organomegaly Ext:No significant edema Neuro: moves all extremities Psych: confused. short span of attention 01/28/19 10:49 01/28/19 10:49 Current Medications Acetaminophen (Tylenol -) 650 mg PO Q6H PRN PRN Reason: FEVER Last Admin: 01/28/19 10:28 Dose: 650 mg Albuterol/Ipratropium (Duoneb -) 1 amp NEB Q6H PRN PRN Reason: SHORTNESS OF BREATH Last Admin: 01/27/19 21:05 Dose: 1 amp Budesonide/Formoterol Fumarate (Symbicort 80/4.5mcg -) 2 puff IH BID [facility] Last Admin: 01/28/19 10:20 Dose: 2 puff Docusate Sodium (Colace -) 300 mg PO HS [facility] Last Admin: 01/27/19 22:30 Dose: 300 mg Enoxaparin Sodium (Lovenox -) 40 mg SQ DAILY [facility] Last Admin: 01/28/19 10:21 Dose: 40 mg Ferrous Gluconate (Fergon -) 324 mg PO DAILY [facility] Last Admin: 01/28/19 10:28 Dose: 324 mg Gabapentin (Neurontin -) 300 mg PO BID PRN PRN Reason: PAIN Last Admin: 01/27/19 19:14 Dose: 300 mg Sodium Chloride (Normal Saline -) 1,000 mls @ 75 mls/hr IV ASDIR [facility] Last Admin: 01/28/19 18:36 Dose: Not Given Lidocaine (Lidoderm Patch -) 1 patch TP DAILY [facility] Last Admin: 01/28/19 10:27 Dose: 1 patch Lorazepam (Ativan Injection -) 0.5 mg IM TID PRN PRN Reason: ANXIETY Last Admin: 01/28/19 13:32 Dose: 0.5 mg Methadone HCl (Dolophine -) 10 mg PO Q12H [facility] Last Admin: 01/28/19 12:20 Dose: 10 mg Methylprednisolone Sodium Succinate (Solu-Medrol -) 40 mg IVPUSH Q8H-IV [facility] Last Admin: 01/28/19 17:21 Dose: 40 mg Metoprolol Tartrate (Lopressor Injection -) 5 mg IVPUSH Q6H PRN PRN Reason: TACHYCARDIA Last Admin: 01/25/19 16:12 Dose: 5 mg Metoprolol Tartrate (Lopressor -) 50 mg PO BID [facility] Last Admin: 01/28/19 10:28 Dose: 50 mg Miscellaneous (Lidoderm Patch Removal) 1 each MC DAILY@2200 [facility] Last Admin: 01/27/19 22:31 Dose: Not Given Non-Formulary Medication (Cannabidiol (Cbd) Extract) 0.2 ml PO BID [facility] Oxycodone HCl (Roxicodone -) 5 mg PO Q4H PRN PRN Reason: PAIN LEVEL 4 - 6 Last Admin: 01/28/19 10:28 Dose: 5 mg Pantoprazole Sodium (Protonix -) 40 mg PO DAILY [facility] Last Admin: 01/28/19 10:28 Dose: 40 mg Polyethylene Glycol (Miralax (For Daily Use) -) 17 gm PO BID [facility] Last Admin: 01/28/19 10:29 Dose: 17 gm Tamsulosin HCl (Flomax -) 0.4 mg PO BID [facility] Last Admin: 01/28/19 10:28 Dose: 0.4 mg A/P Pt is a 68 y/o M with Rt. lung squamous cell cancer, s/p weekly carbo/taxol, s/ p 1 cycle pembrolizumab, comes in with ,SVT, anemia Also severe Rt. upperchest/shoulder pain--on methadone/oxycodone/marinol On steroids confusion--? pain meds ? steroids check screening head CT 12/12/18 brain MRI is negative neuroconsult consider psych consult for polypharmacy interaction management and advice.
[2019-01-28] MEDS: ALBUTEROL SO4 2.5/IPRATROPIUM 0.5 INH SOL 3 ML VIAL.NEB. NEB PRN (19:55)
[2019-01-28] MEDS: DOCUSATE SODIUM 100 MG CAPSULE (FP) PO SCH (22:13)
[2019-01-28] MEDS: LIDOCAINE PATCH REMOVAL MC SCH (22:27)
[2019-01-29] MEDS: methylPREDNISolone NA SUCC 40 MG/1 ML VIAL IVPUSH SCH ×3 (01:09→18:04)
[2019-01-29] MEDS: oxyCODONE HCL 5 MG TABLET PO PRN ×3 (04:47→22:39)
[2019-01-29 07:05] LABS: BASO % 0.1 % (0-2.0); HEMATOCRIT 28.2 % (35.4-49); HEMOGLOBIN 9.1 GM/dL (11.7-16.9); LYMPH % 0.9 % (8-40); MCH 29.4 pg (25.7-33.7); MCHC 32.2 g/dl (32.0-35.9); MEAN CELL VOLUME 91.2 fl (80-96); MEAN PLT VOLUME 7.6 fl (7.5-11.1); MONO % 2.2 % (3.8-10.2); NEUT % 96.8 % (42.8-82.8); PLATELET COUNT 154 K/MM3 (134-434); RBC 3.09 M/mm3 (4.00-5.60); RDW 16.6 % (11.9-15.9)
[2019-01-29 07:21] LABS: BLOOD UREA NITROGEN 11.1 mg/dL (7-18); CALCIUM 8.3 mg/dL (8.5-10.1); CREATININE 0.4 mg/dL (0.55-1.3); POTASSIUM 3.8 mmol/L (3.5-5.1)
--- NOTE | 2019-01-29 07:55 | PN ---
Teaching Attending Note Name of Resident: Sherry Kapadia ATTENDING PHYSICIAN STATEMENT I saw and evaluated the patient. I reviewed the resident's note and discussed the case with the resident. I agree with the resident's findings and plan as documented. SUBJECTIVE: OBJECTIVE: Vital Signs Temperature 97.6 F 01/29/19 06:00 Pulse Rate 101 H 01/29/19 06:00 Respiratory Rate 18 01/29/19 06:00 Blood Pressure 142/89 01/29/19 06:00 O2 Sat by Pulse Oximetry (%) 97 01/28/19 21:00 HEENT: mm dry anemia NECK: No JVd No Bruit CHest; B/L wheezes CVS: S1S2 r no m/g/r ABD: Non tender Bs + EXT: trace edema feet [employer] WORK[employer]: agitated moving all extremities CBC, BMP 01/29/19 06:11 01/29/19 06:11 Active Medications Acetaminophen (Tylenol -) 650 mg PO Q6H PRN PRN Reason: FEVER Last Admin: 01/28/19 10:28 Dose: 650 mg Albuterol/Ipratropium (Duoneb -) 1 amp NEB Q6H PRN PRN Reason: SHORTNESS OF BREATH Last Admin: 01/28/19 19:55 Dose: 1 amp Budesonide/Formoterol Fumarate (Symbicort 80/4.5mcg -) 2 puff IH BID [facility] Last Admin: 01/28/19 22:15 Dose: 2 puff Docusate Sodium (Colace -) 300 mg PO HS [facility] Last Admin: 01/28/19 22:13 Dose: 300 mg Enoxaparin Sodium (Lovenox -) 40 mg SQ DAILY [facility] Last Admin: 01/28/19 10:21 Dose: 40 mg Ferrous Gluconate (Fergon -) 324 mg PO DAILY [facility] Last Admin: 01/28/19 10:28 Dose: 324 mg Gabapentin (Neurontin -) 300 mg PO BID PRN PRN Reason: PAIN Last Admin: 01/27/19 19:14 Dose: 300 mg Sodium Chloride (Normal Saline -) 1,000 mls @ 75 mls/hr IV ASDIR [facility] Last Admin: 01/28/19 23:47 Dose: 75 mls/hr Lidocaine (Lidoderm Patch -) 1 patch TP DAILY [facility] Last Admin: 01/28/19 10:27 Dose: 1 patch Lorazepam (Ativan Injection -) 0.5 mg IM TID PRN PRN Reason: ANXIETY Last Admin: 01/28/19 22:51 Dose: 0.5 mg Methadone HCl (Dolophine -) 10 mg PO Q12H [facility] Last Admin: 01/28/19 23:43 Dose: 10 mg Methylprednisolone Sodium Succinate (Solu-Medrol -) 40 mg IVPUSH Q8H-IV [facility] Last Admin: 01/29/19 01:09 Dose: 40 mg Metoprolol Tartrate (Lopressor Injection -) 5 mg IVPUSH Q6H PRN PRN Reason: TACHYCARDIA Last Admin: 01/25/19 16:12 Dose: 5 mg Metoprolol Tartrate (Lopressor -) 50 mg PO BID [facility] Last Admin: 01/28/19 22:13 Dose: 50 mg Miscellaneous (Lidoderm Patch Removal) 1 each MC DAILY@2200 [facility] Last Admin: 01/28/19 22:27 Dose: 1 each Non-Formulary Medication (Cannabidiol (Cbd) Extract) 0.2 ml PO BID [facility] Oxycodone HCl (Roxicodone -) 5 mg PO Q4H PRN PRN Reason: PAIN LEVEL 4 - 6 Last Admin: 01/29/19 04:47 Dose: 5 mg Pantoprazole Sodium (Protonix -) 40 mg PO DAILY [facility] Last Admin: 01/28/19 10:28 Dose: 40 mg Polyethylene Glycol (Miralax (For Daily Use) -) 17 gm PO BID [facility] Last Admin: 01/28/19 22:13 Dose: 17 gm Tamsulosin HCl (Flomax -) 0.4 mg PO BID [facility] Last Admin: 01/28/19 22:13 Dose: 0.4 mg ASSESSMENT AND PLAN: 68 year old man with PMH of 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 Aviles who presents with fatigue lethargy and SOB. Was found to be anemic in office told to come to ER. Patient developed SVT converted with 1 dose of adenosine Plan; Please taper Prednisone Can be Dc on PO Prednisone once cleared by the Ocology consult Problem List - Problems (1) Generalized weakness Assessment/Plan: Due to anemia and systemic sickness, H/H stable Code(s): R53.1 - WEAKNESS (2) Anemia Assessment/Plan: Chronic H/H are stable no active sourse of bleeding Code(s): D64.9 - ANEMIA, UNSPECIFIED Qualifiers: Anemia type: unspecified type Qualified Code(s): D64.9 - Anemia, unspecified (3) PSVT (paroxysmal supraventricular tachycardia) Assessment/Plan: Converted to NSR on Metoprolol Code(s): I47.1 - SUPRAVENTRICULAR TACHYCARDIA (4) Lung cancer Assessment/Plan: management as per Oncology recommendations Code(s): C34.90 - MALIGNANT NEOPLASM OF UNSP PART OF UNSP BRONCHUS OR LUNG (5) Pain management Assessment/Plan: Chronic pain cont current pain meds. Code(s): R52 - PAIN, UNSPECIFIED (6) COPD exacerbation Assessment/Plan: B/L wheezing cont duoneb ad Advair and IV steroids PRN loraxzepalm for agitation. Code(s): J44.1 - CHRONIC OBSTRUCTIVE PULMONARY DISEASE W (ACUTE) EXACERBATION (7) Agitated Assessment/Plan: can bedue to CBD withdrawal patient was on CBD oil for pain control will ad Lorazepalm .5 mg q 8 hrly PRN F/U clinically. Code(s): R45.1 - RESTLESSNESS AND AGITATION
[2019-01-29] MEDS: LIDOCAINE 5% TOPICAL PATCH TP SCH (09:33)
[2019-01-29] MEDS: TAMSULOSIN HCL 0.4 MG CAP PO SCH ×2 (09:37→22:17)
[2019-01-29] MEDS: PANTOPRAZOLE 40 MG TABLET (FP) PO SCH (09:37)
[2019-01-29] MEDS: METOPROLOL TARTRATE 25 MG TABLET (FP) PO SCH ×2 (09:37→22:17)
[2019-01-29] MEDS: ENOXAPARIN NA (PORCINE) 40 MG/0.4 ML DISP.SYRIN SQ SCH (09:38)
[2019-01-29] MEDS: BUDESONIDE/FORMETEROL FUMARATE 80/4.5 mcg INHALER IH SCH ×2 (09:38→22:16)
[2019-01-29] MEDS ORDERED: PT OWN MED DRAWER 7, Y5N ONE (09:44)
[2019-01-29] MEDS: POLYETHYLENE GLYCOL 3350 119 GM BTL PO SCH ×2 (09:45→22:18)
[2019-01-29] MEDS: FERROUS GLUCONATE 324 MG TAB (FP) PO SCH (09:45)
--- NOTE | 2019-01-29 09:59 | PN ---
Progress Note, Physician History of Present Illness: pulmonary awake,c/o cough,less congested - Current Medication List Current Medications: Active Medications Acetaminophen (Tylenol -) 650 mg PO Q6H PRN PRN Reason: FEVER Last Admin: 01/28/19 10:28 Dose: 650 mg Albuterol/Ipratropium (Duoneb -) 1 amp NEB Q6H PRN PRN Reason: SHORTNESS OF BREATH Last Admin: 01/28/19 19:55 Dose: 1 amp Budesonide/Formoterol Fumarate (Symbicort 80/4.5mcg -) 2 puff IH BID [facility] Last Admin: 01/29/19 09:38 Dose: 2 puff Docusate Sodium (Colace -) 300 mg PO HS [facility] Last Admin: 01/28/19 22:13 Dose: 300 mg Enoxaparin Sodium (Lovenox -) 40 mg SQ DAILY [facility] Last Admin: 01/29/19 09:38 Dose: 40 mg Ferrous Gluconate (Fergon -) 324 mg PO DAILY [facility] Last Admin: 01/29/19 09:45 Dose: 324 mg Gabapentin (Neurontin -) 300 mg PO BID PRN PRN Reason: PAIN Last Admin: 01/27/19 19:14 Dose: 300 mg Sodium Chloride (Normal Saline -) 1,000 mls @ 75 mls/hr IV ASDIR [facility] Last Admin: 01/28/19 23:47 Dose: 75 mls/hr Lidocaine (Lidoderm Patch -) 1 patch TP DAILY [facility] Last Admin: 01/29/19 09:33 Dose: 1 patch Lorazepam (Ativan Injection -) 0.5 mg IM TID PRN PRN Reason: ANXIETY Last Admin: 01/28/19 22:51 Dose: 0.5 mg Methadone HCl (Dolophine -) 10 mg PO Q12H [facility] Last Admin: 01/28/19 23:43 Dose: 10 mg Methylprednisolone Sodium Succinate (Solu-Medrol -) 40 mg IVPUSH Q8H-IV [facility] Last Admin: 01/29/19 09:38 Dose: 40 mg Metoprolol Tartrate (Lopressor Injection -) 5 mg IVPUSH Q6H PRN PRN Reason: TACHYCARDIA Last Admin: 01/25/19 16:12 Dose: 5 mg Metoprolol Tartrate (Lopressor -) 50 mg PO BID [facility] Last Admin: 01/29/19 09:37 Dose: 50 mg Miscellaneous (Lidoderm Patch Removal) 1 each MC DAILY@2200 [facility] Last Admin: 01/28/19 22:27 Dose: 1 each Non-Formulary Medication (Cannabidiol (Cbd) Extract) 0.2 ml PO BID [facility] Oxycodone HCl (Roxicodone -) 5 mg PO Q4H PRN PRN Reason: PAIN LEVEL 4 - 6 Last Admin: 01/29/19 09:45 Dose: 5 mg Pantoprazole Sodium (Protonix -) 40 mg PO DAILY [facility] Last Admin: 01/29/19 09:37 Dose: 40 mg Polyethylene Glycol (Miralax (For Daily Use) -) 17 gm PO BID [facility] Last Admin: 01/29/19 09:45 Dose: 17 gm Tamsulosin HCl (Flomax -) 0.4 mg PO BID [facility] Last Admin: 01/29/19 09:37 Dose: 0.4 mg - Objective Vital Signs: Vital Signs Temperature 97.6 F 01/29/19 08:56 Pulse Rate 110 H 01/29/19 08:56 Respiratory Rate 20 01/29/19 08:56 Blood Pressure 130/79 01/29/19 08:56 O2 Sat by Pulse Oximetry (%) 98 01/29/19 08:57 Constitutional: Yes: Calm, Thin Eyes: Yes: WNL HENT: Yes: WNL Neck: Yes: WNL Cardiovascular: Yes: Regular Rate and Rhythm, S1, S2 Respiratory: Yes: Rhonchi (scattered alphonso rhonchi) Gastrointestinal: Yes: Normal Bowel Sounds, Soft Extremities: Yes: WNL Edema: No Labs: CBC, BMP 01/29/19 06:11 01/29/19 06:11 Problem List - Problems (1) Agitated Code(s): R45.1 - RESTLESSNESS AND AGITATION (2) Anemia Code(s): D64.9 - ANEMIA, UNSPECIFIED Qualifiers: Anemia type: unspecified type Qualified Code(s): D64.9 - Anemia, unspecified (3) COPD exacerbation Code(s): J44.1 - CHRONIC OBSTRUCTIVE PULMONARY DISEASE W (ACUTE) EXACERBATION (4) Dysrhythmia Code(s): I49.9 - CARDIAC ARRHYTHMIA, UNSPECIFIED (5) Lung cancer Code(s): C34.90 - MALIGNANT NEOPLASM OF UNSP PART OF UNSP BRONCHUS OR LUNG (6) PSVT (paroxysmal supraventricular tachycardia) Code(s): I47.1 - SUPRAVENTRICULAR TACHYCARDIA Assessment/Plan ASSESSMENT AND PLAN: SVT s/p DCCV Advanced NSCLC (Squamous cell) s/p chemo Low clinical impression of PNA Chronic Pain/Methadone Maintenance Anemia Smoker - rate control - monitor H/H - Normal transfusion threshold - DVT prophylaxis - medrol taper - chest x-ray today DR EDWARDS
[2019-01-29 10:54] LABS: ANISOCYTOSIS 1+; MACROCYTOSIS 1+; OVALOCYTE 1+
[2019-01-29 11:14] LABS: PLATELET ESTIMATE ADEQUATE
--- NOTE | 2019-01-29 11:14 | CONSULT ---
Consult - text type - Consultation Consultation Note: Neurology HISTORY OF PRESENT ILLNESS: This is a 68 year old male with PMH significant for RUL squamous cell CA, diagnosed in August. He presented to the ER from Dr. Aviles's office on day of admission, after he was found to be anemic (H&H 7.9/25.0), and complains of B/L leg edema and generalized weakness over the past 1 week. He stated that he was visiting Dr. Aviles for a regular follow up appointment for his CA, and was due to start new medication (as per Dr. Aviles's note on 01/10, he has completed his course of Carboplatin and Paclitaxel, due to start Keytruda). He was found to be anemic and was referred to [facility] for a blood transfusion. He stated that the leg edema began gradually, over the past week, and he denies any associated trauma or recent illnesses. He also complained of urinary urgency and constipation, both of which began over the past week. He does not remember when he had his last bowel movement. He endorsed subjective fevers over the past day , without any chills, diarrhea, dysuria, hematuria, nausea, vomiting, or diarrhea. He also complained of SOB, light headedness, dizziness, insomnia, and chest pain since his diagnosis in August. The chest pain is on the right side of his chest, 7/10 in intensity, described as a squeezing pain, constant in nature but varying in intensity, radiating to the posterior aspect of his right shoulder, with no recognizable aggravating or alleviating factors. He also complained of a productive cough with yellowish sputum for the past 5 months. He was recently discharged from [facility] on 01/08/19, he was admitted for post obstructive pneumonia and was treated with Zosyn, and discharged on a 1 week course of Augmentin. Currently confused, minimally responsive to questions. No imaging of head for this admission, we'll order noncontrast head CT to further evaluate. Recent Travel: None PAST MEDICAL HISTORY: RUL squamous cell CA PAST SURGICAL HISTORY: Bowel obstruction over 20 years ago 2018: hepatic surgery, patient not sure about the specifics Social History: Smoking: quit in August, smoked 3ppd for 40 years before then Alcohol: 10 beers several times per week Drugs: denies Family History: Mother had colon CA Allergies No Known Allergies Allergy (Verified 01/23/19 19:29) Home Medications Acetaminophen 650 mg PO Q6H PRN 01/05/19 Docusate Sodium [Colace] 100 mg PO TID 01/05/19 Gabapentin 300 mg PO Q8H PRN 01/05/19 Oxycodone HCl 5 mg PO Q4H PRN 01/05/19 Pantoprazole Sodium [Protonix] 40 mg PO DAILY 01/05/19 Tamsulosin HCl 0.4 mg PO BID 01/05/19 Cannabidiol (Cbd) Extract 0.2 ml PO BID 01/06/19 Amoxicillin/Potassium Clav [Augmentin 875-125 Tablet] 1 each PO BID 7 Days #14 tablet 01/08/19 Ferrous Gluconate [Fergon -] 324 mg PO DAILY #30 tab 01/08/19 Methadone [Dolophine -] 10 mg PO Q12H 01/08/19 Azithromycin [Zithromax 250mg Tablets -] 250 mg PO DAILY 01/25/19 Guaifenesin Dm [Robitussin Dm -] 10 ml PO Q6H PRN 01/25/19 Salmeterol/Fluticasone [Advair 100Mcg/50Mcg -] 250 mcg PO PRN 01/25/19 Active Medications Acetaminophen (Tylenol -) 650 mg PO Q6H PRN PRN Reason: FEVER Last Admin: 01/28/19 10:28 Dose: 650 mg Albuterol/Ipratropium (Duoneb -) 1 amp NEB Q6H PRN PRN Reason: SHORTNESS OF BREATH Last Admin: 01/28/19 19:55 Dose: 1 amp Budesonide/Formoterol Fumarate (Symbicort 80/4.5mcg -) 2 puff IH BID [facility] Last Admin: 01/29/19 09:38 Dose: 2 puff Docusate Sodium (Colace -) 300 mg PO HS [facility] Last Admin: 01/28/19 22:13 Dose: 300 mg Enoxaparin Sodium (Lovenox -) 40 mg SQ DAILY [facility] Last Admin: 01/29/19 09:38 Dose: 40 mg Ferrous Gluconate (Fergon -) 324 mg PO DAILY [facility] Last Admin: 01/29/19 09:45 Dose: 324 mg Gabapentin (Neurontin -) 300 mg PO BID PRN PRN Reason: PAIN Last Admin: 01/27/19 19:14 Dose: 300 mg Sodium Chloride (Normal Saline -) 1,000 mls @ 75 mls/hr IV ASDIR [facility] Last Admin: 01/28/19 23:47 Dose: 75 mls/hr Lidocaine (Lidoderm Patch -) 1 patch TP DAILY [facility] Last Admin: 01/29/19 09:33 Dose: 1 patch Lorazepam (Ativan Injection -) 0.5 mg IM TID PRN PRN Reason: ANXIETY Last Admin: 01/28/19 22:51 Dose: 0.5 mg Methadone HCl (Dolophine -) 10 mg PO Q12H [facility] Last Admin: 01/28/19 23:43 Dose: 10 mg Methylprednisolone Sodium Succinate (Solu-Medrol -) 40 mg IVPUSH Q8H-IV [facility] Last Admin: 01/29/19 09:38 Dose: 40 mg Metoprolol Tartrate (Lopressor Injection -) 5 mg IVPUSH Q6H PRN PRN Reason: TACHYCARDIA Last Admin: 01/25/19 16:12 Dose: 5 mg Metoprolol Tartrate (Lopressor -) 50 mg PO BID [facility] Last Admin: 01/29/19 09:37 Dose: 50 mg Miscellaneous (Lidoderm Patch Removal) 1 each MC DAILY@2200 [facility] Last Admin: 01/28/19 22:27 Dose: 1 each Non-Formulary Medication (Cannabidiol (Cbd) Extract) 0.2 ml PO BID [facility] Oxycodone HCl (Roxicodone -) 5 mg PO Q4H PRN PRN Reason: PAIN LEVEL 4 - 6 Last Admin: 01/29/19 09:45 Dose: 5 mg Pantoprazole Sodium (Protonix -) 40 mg PO DAILY [facility] Last Admin: 01/29/19 09:37 Dose: 40 mg Polyethylene Glycol (Miralax (For Daily Use) -) 17 gm PO BID [facility] Last Admin: 01/29/19 09:45 Dose: 17 gm Tamsulosin HCl (Flomax -) 0.4 mg PO BID [facility] Last Admin: 01/29/19 09:37 Dose: 0.4 mg REVIEW OF SYSTEMS CONSTITUTIONAL: fever Absent: fever, chills, diaphoresis, generalized weakness, malaise, loss of appetite, weight change HEENT: Absent: rhinorrhea, nasal congestion, throat pain, throat swelling, difficulty swallowing, mouth swelling, ear pain, eye pain, visual changes CARDIOVASCULAR: chest pain Absent: chest pain, syncope, palpitations, irregular heart rate, lightheadedness , peripheral edema RESPIRATORY: cough Absent: cough, shortness of breath, dyspnea with exertion, orthopnea, wheezing, stridor, hemoptysis GASTROINTESTINAL: constipation Absent: abdominal pain, abdominal distension, nausea, vomiting, diarrhea, constipation, melena, hematochezia GENITOURINARY: frequency Absent: dysuria, frequency, urgency, hesitancy, hematuria, flank pain, genital pain MUSCULOSKELETAL: Absent: myalgia, arthralgia, joint swelling, back pain, neck pain SKIN: Absent: rash, itching, pallor HEMATOLOGIC/IMMUNOLOGIC: Absent: easy bleeding, easy bruising, lymphadenopathy, frequent infections ENDOCRINE: Absent: unexplained weight gain, unexplained weight loss, heat intolerance, cold intolerance NEUROLOGIC: Absent: headache, focal weakness or paresthesias, dizziness, unsteady gait, seizure, mental status changes, bladder or bowel incontinence PSYCHIATRIC: Absent: anxiety, depression, suicidal or homicidal ideation, hallucinations. PHYSICAL EXAMINATION Vital Signs Period Temp Pulse Resp BP Sys/Seo Pulse Ox Last 24 Hr 97.6 F-98.4 F 86-110 18-20 117-150/51-89 97-98 GENERAL: Awake, alert, and fully oriented, in no acute distress. HEAD: Normal with no signs of trauma. EYES: Pupils equal, round and reactive to light, extraocular movements intact, sclera anicteric, conjunctiva clear. No lid lag. EARS, NOSE, THROAT: Ears normal, nares patent, oropharynx clear without exudates. Moist mucous membranes. NECK: Normal range of motion, supple without lymphadenopathy, JVD, or masses. LUNGS: decreased air entry on the right, expiratory wheeze B/L HEART: elevated rate, regular rhythm, normal S1 and S2 without murmur, rub or gallop. ABDOMEN: Soft, nontender, not distended, normoactive bowel sounds, no guarding, no rebound, no masses. No hepatomegaly or splenomegaly. MUSCULOSKELETAL: Normal range of motion at all joints. No bony deformities or tenderness. No CVA tenderness. UPPER EXTREMITIES: 2+ pulses, warm, well-perfused. No cyanosis. No clubbing. No peripheral edema. LOWER EXTREMITIES: B/L pitting edema 2+, more on the right NEUROLOGICAL: Cranial nerves II-XII intact. Normal speech. Normal gait. PSYCHIATRIC: Cooperative. Good eye contact. Appropriate mood and affect. SKIN: Warm, dry, normal turgor, no rashes or lesions noted, normal capillary refill. CBCD WBC 12.0 K/mm3 (4.0-10.0) H 01/29/19 06:11 RBC 3.09 M/mm3 (4.00-5.60) L 01/29/19 06:11 Hgb 9.1 GM/dL (11.7-16.9) L 01/29/19 06:11 Hct 28.2 % (35.4-49) L 01/29/19 06:11 MCV 91.2 fl (80-96) 01/29/19 06:11 MCHC 32.2 g/dl (32.0-35.9) 01/29/19 06:11 RDW 16.6 % (11.9-15.9) H 01/29/19 06:11 Plt Count 154 K/MM3 (134-434) 01/29/19 06:11 MPV 7.6 fl (7.5-11.1) 01/29/19 06:11 CMP Sodium 134 mmol/L (136-145) L 01/29/19 06:11 Potassium 3.8 mmol/L (3.5-5.1) 01/29/19 06:11 Chloride 99 mmol/L (98-107) 01/29/19 06:11 Carbon Dioxide 28 mmol/L (21-32) 01/29/19 06:11 Anion Gap 7 MMOL/L (8-16) L 01/29/19 06:11 BUN 11.1 mg/dL (7-18) 01/29/19 06:11 Creatinine 0.4 mg/dL (0.55-1.3) L 01/29/19 06:11 Calcium 8.3 mg/dL (8.5-10.1) L 01/29/19 06:11 Total Bilirubin 0.9 mg/dL (0.2-1) 01/27/19 06:10 AST 28 U/L (15-37) 01/27/19 06:10 ALT 28 U/L (13-61) 01/27/19 06:10 Alkaline Phosphatase 281 U/L (45-117) H 01/27/19 06:10 Total Protein 6.0 g/dl (6.4-8.2) L 01/27/19 06:10 Albumin 2.1 g/dl (3.4-5.0) L 01/27/19 06:10 ASSESSMENT/PLAN: This is a 68 year old male with PMH significant for RUL squamous cell CA, diagnosed in August. He presented to the ER from Dr. Aviles's office on day of admission, after he was found to be anemic (H&H 7.9/25.0), and complains of B/L leg edema and generalized weakness over the past 1 week. He stated that he was visiting Dr. Aviles for a regular follow up appointment for his CA, and was due to start new medication (as per Dr. Aviles's note on 01/10, he has completed his course of Carboplatin and Paclitaxel, due to start Keytruda). He was found to be anemic and was referred to [facility] for a blood transfusion. He stated that the leg edema began gradually, over the past week, and he denies any associated trauma or recent illnesses. He also complained of urinary urgency and constipation, both of which began over the past week. He does not remember when he had his last bowel movement. He endorses subjective fevers over the past day , without any chills, diarrhea, dysuria, hematuria, nausea, vomiting, or diarrhea. He also complained of SOB, light headedness, dizziness, insomnia, and chest pain since his diagnosis in August. The chest pain is on the right side of his chest, 7/10 in intensity, described as a squeezing pain, constant in nature but varying in intensity, radiating to the posterior aspect of his right shoulder, with no recognizable aggravating or alleviating factors. He also complained of a productive cough with yellowish sputum for the past 5 months. He was recently discharged from [facility] on 01/08/19, he was admitted for post obstructive pneumonia and was treated with Zosyn, and discharged on a 1 week course of Augmentin. No imaging of head for this admission, we'll order noncontrast head CT to further evaluate. Possibly related to underlying anemia. Transfusion as needed, we'll continue to monitor mental status.
--- NOTE | 2019-01-29 11:20 | PN ---
Physical Exam: SUBJECTIVE: Patient seen and examined. He is more alert and is able to engage in conversation more than previously. He reports having bilateral leg pain, back pain, and headache. He has a dry cough. Pt does not endorse nausea or vomiting. OBJECTIVE: Vital Signs Period Temp Pulse Resp BP Sys/Seo Pulse Ox Last 24 Hr 97.6 F-98.4 F 86-110 18-20 117-150/51-89 97-98 GENERAL: The patient is awake, alert, and fully oriented, in no acute distress. Sitting up in bed. HEAD: Normal with no signs of trauma. EYES: PERRL, extraocular movements intact, sclera anicteric, conjunctiva clear. No ptosis. ENT: Ears normal, nares patent, moist mucous membranes. NECK: Trachea midline, full range of motion, supple. LUNGS: Expiratory wheezing bilaterally, no accessory muscle use. HEART: Regular rate and rhythm, S1, S2 without murmur, rub or gallop. ABDOMEN: Soft, nontender, nondistended, normoactive bowel sounds EXTREMITIES: 2+ pulses, warm, well-perfused, no edema. NEUROLOGICAL: Cranial nerves II through XII grossly intact. Normal speech, gait not observed. PSYCH: Normal mood, normal affect. SKIN: Warm, dry, normal turgor, no rashes or lesions noted Laboratory Results - last 24 hr 01/28/19 01/28/19 01/29/19 10:49 10:49 06:11 WBC 13.0 H 12.0 H RBC 3.19 L 3.09 L Hgb 9.4 L 9.1 L Hct 28.9 L 28.2 L MCV 90.7 91.2 MCH 29.6 29.4 MCHC 32.6 32.2 RDW 16.3 H 16.6 H Plt Count 166 154 MPV 7.5 7.6 Absolute Neuts (auto) 12.1 H 11.6 H Neutrophils % 92.8 H 96.8 H Neutrophils % (Manual) 95.9 H 96.0 H Band Neutrophils % 2.1 4.0 Lymphocytes % 1.7 L 0.9 L Lymphocytes % (Manual) 0.0 L 0.0 L Monocytes % 4.9 2.2 L Monocytes % (Manual) 1 L 0 L D Eosinophils % 0.0 D 0.0 Eosinophils % (Manual) 1.0 D 0.0 D Basophils % 0.6 D 0.1 Basophils % (Manual) 0.0 0.0 Myelocytes % (Man) 0 0 Promyelocytes % (Man) 0 0 Blast Cells % (Manual) 0 0 Nucleated RBC % 0 0 Metamyelocytes 0 0 Hypochromia 0 0 Platelet Estimate Decreased Adequate Polychromasia 0 0 Poikilocytosis 0 1+ Anisocytosis 0 1+ Microcytosis 0 1+ Macrocytosis 0 1+ Ovalocytes 1+ Schistocytes 1+ Sodium 133 L Potassium 3.5 Chloride 96 L Carbon Dioxide 29 Anion Gap 8 BUN 9.7 Creatinine 0.4 L Est GFR (CKD-EPI)AfAm 141.45 Est GFR (CKD-EPI)NonAf 122.04 Random Glucose 149 H Calcium 8.2 L 01/29/19 06:11 WBC RBC Hgb Hct MCV MCH MCHC RDW Plt Count MPV Absolute Neuts (auto) Neutrophils % Neutrophils % (Manual) Band Neutrophils % Lymphocytes % Lymphocytes % (Manual) Monocytes % Monocytes % (Manual) Eosinophils % Eosinophils % (Manual) Basophils % Basophils % (Manual) Myelocytes % (Man) Promyelocytes % (Man) Blast Cells % (Manual) Nucleated RBC % Metamyelocytes Hypochromia Platelet Estimate Polychromasia Poikilocytosis Anisocytosis Microcytosis Macrocytosis Ovalocytes Schistocytes Sodium 134 L Potassium 3.8 Chloride 99 Carbon Dioxide 28 Anion Gap 7 L BUN 11.1 Creatinine 0.4 L Est GFR (CKD-EPI)AfAm 141.45 Est GFR (CKD-EPI)NonAf 122.04 Random Glucose 162 H Calcium 8.3 L Active Medications Generic Name Dose Route Start Last Admin Trade Name Freq PRN Reason Stop Dose Admin Acetaminophen 650 mg 01/27/19 15:22 01/28/19 10:28 Tylenol - PO 650 mg Q6H PRN Administration FEVER Albuterol/Ipratropium 1 amp 01/27/19 08:27 01/28/19 19:55 Duoneb - NEB 1 amp Q6H PRN Administration SHORTNESS OF BREATH Budesonide/Formoterol Fumarate 2 puff 01/28/19 10:00 01/29/19 09:38 Symbicort 80/4.5mcg - IH 2 puff BID SHIRA Administration Docusate Sodium 300 mg 01/24/19 22:00 09/21/19 22:13 Colace - PO 300 mg HS SHIAR Administration Enoxaparin Sodium 40 mg 01/25/19 10:00 01/29/19 09:38 Lovenox - SQ 40 mg DAILY SHIAR Administration Ferrous Gluconate 324 mg 01/28/19 10:00 01/29/19 09:45 Fergon - PO 324 mg DAILY SHIRA Administration Gabapentin 300 mg 01/24/19 17:53 01/27/19 19:14 Neurontin - PO 300 mg BID PRN Administration PAIN Sodium Chloride 1,000 mls @ 75 mls/hr 01/24/19 17:53 01/28/19 23:47 Normal Saline - IV 75 mls/hr ASDIR SHIRA Administration Lidocaine 1 patch 01/27/19 12:30 01/29/19 09:33 Lidoderm Patch - TP 1 patch DAILY [facility]A Administration Lorazepam 0.5 mg 01/28/19 09:48 01/28/19 22:51 Ativan Injection - IM 0.5 mg TID PRN Administration ANXIETY Methadone HCl 10 mg 01/25/19 00:15 01/28/19 23:43 Dolophine - PO 10 mg Q12H SHIRA Administration Methylprednisolone Sodium Succinate 40 mg 01/28/19 10:00 01/29/19 09:38 Solu-Medrol - IVPUSH 40 mg Q8H-IV [facility]A Administration Metoprolol Tartrate 5 mg 01/24/19 16:15 01/25/19 16:12 Lopressor Injection - IVPUSH 5 mg Q6H PRN Administration TACHYCARDIA Metoprolol Tartrate 50 mg 01/27/19 11:01 01/29/19 09:37 Lopressor - PO 50 mg BID [facility]A Administration Miscellaneous 1 each 01/27/19 23:00 01/28/19 22:27 Lidoderm Patch Removal MC 1 each DAILY@2200 [facility]A Administration Non-Formulary Medication 0.2 ml 01/28/19 10:00 Cannabidiol (Cbd) Extract PO BID [facility] Oxycodone HCl 5 mg 01/26/19 13:08 01/29/19 09:45 Roxicodone - PO 5 mg Q4H PRN Administration PAIN LEVEL 4 - 6 Pantoprazole Sodium 40 mg 01/28/19 10:00 01/29/19 09:37 Protonix - PO 40 mg DAILY [facility]A Administration Polyethylene Glycol 17 gm 01/24/19 22:00 01/29/19 09:45 Miralax (For Daily Use) - PO 17 gm BID [facility]A Administration Tamsulosin HCl 0.4 mg 01/28/19 10:00 01/29/19 09:37 Flomax - PO 0.4 mg BID [facility]A Administration ASSESSMENT/PLAN: 68 y/o male with right squamous cell carcinoma, SBO s/p bowel resection, polysubstance use, and chronic pain syndrome on methadone sent to ED for symptomatic anemia. Pt is known to Dr. Aviles and was experiencing SOB, tiredness , and lethargy, with office Hb 7.4 requiring transfusion to maintain specific parameters. Pt received PRBC in ED. Pt entered SVT and given adenosine, lopressor, and 50 J cardioversion. Pt transferred monitored in ICU and eventually sent to telemetry. #sepsis 2/2 possible pulmonary embolism vs possible obstructive pneumonia CXR: Prominent mediastinum, RUL cavitary mass, RIGHT early infiltrate, increasing atelectatic changes. Pt agreeable to bedside echo; refuses CTA ( states he cannot breath while supine) but will forgo at present time. POCUS/ doppler negative. Afebrile. Tmax 100.5 on 01/27/19. -Will monitor off abx -Cultures NEG (urine, blood, sputum) -Pt has episodes of tachycardia; less frequent now -TSH WNL -Lopressor 50mg BID -Lopressor 5mg push PRN tachycardia >120 #acute metabolic encephalopathy, medication-induced vs hypercapnia, resolving Oxycodone reduced to 5mg. ABG was pH 7.50. Pt is more cooperative and less agitated. Recent MRI that was negative for mets or acute pathology and low concern for CVA at this time -riya vest PRN agitation as first line -ativan PRN agitation #SVT New atrial flutter in ED, resolved. Intermittent tachycardia. -Echo- trace TR, EF 60-65% -TSH normal, free T4 slightly elevated -Cards consulted: Metoprolol 25 bid. Transfuse PRBC as needed and follow CBC #anemia of chronic disease Hemodynamically stable with no signs of bleeding. Hb 9.1. s/p 1 unit PRBC. #squamous cell carcinoma MRI brain 12/13/18 showed no mets. -primary heme/onc consulted (Dr. Aviles) -oxycodone 5mg Q4H PRN -lidoderm patch for back pain PRN -methadone 10mg BID -gabapentin 300mg BID PRN -tylenol -Symbicort -Solumedrol 40mg Q8H -Robitussin PRN cough #transaminitis Alk phos elevated. Unknown if have bone involvement from malignancy. Elevated GGT 189. -continue to monitor FEN NS 75mL/hr monitor electrolytes regular diet DVT Ppx Lovenox GI Ppx Protonix Dispo tele Visit type - Emergency Visit Emergency Visit: Yes ED Registration Date: 01/23/19 Care time: The patient presented to the Emergency Department on the above date and was hospitalized for further evaluation of their emergent condition. - New Patient This patient is new to me today: Yes Date on this admission: 01/29/19 - Critical Care Critical Care patient: No - Discharge Referral Referred to [facility] Med [facility].C.: No ATTENDING PHYSICIAN STATEMENT I saw and evaluated the patient. I reviewed the resident's note and discussed the case with the resident. I agree with the resident's findings and plan as documented. SUBJECTIVE: OBJECTIVE: ASSESSMENT AND PLAN:
[2019-01-29] MEDS: METHADONE HCL 10 MG TABLET PO SCH (13:07)
[2019-01-29] MEDS: SODIUM CHLORIDE 1,000 ML IV SCH ×2 (13:23→18:09)
[2019-01-29] MEDS: LORazepam 2 MG/ML SDV VIAL IM PRN (15:43)
--- NOTE | 2019-01-29 17:05 | PN ---
Progress Note (short form) - Note Progress Note: Patient seen and examined Much better than yesterday. He is able to participate in conversation. + cough + pain ROS: 14 point elicited in detail and negative or as per above Last Vital Signs Temp Pulse Resp BP Pulse Ox 98.3 F 93 H 20 140/69 98 01/29/19 13:53 01/29/19 13:53 01/29/19 13:53 01/29/19 13:53 01/29/19 08:57 HEENT: MMM Cor: RSR, No murmurs, No gallops Lungs: decreased at bases, mild wheezes/crackles at bases Abd: Soft, Normal bowel sounds, No organomegaly Ext:No significant edema Neuro: moves all extremities Psych: less confused. More interactive. 01/29/19 06:11 01/29/19 06:11 Current Medications Acetaminophen (Tylenol -) 650 mg PO Q6H PRN PRN Reason: FEVER Last Admin: 01/28/19 10:28 Dose: 650 mg Albuterol/Ipratropium (Duoneb -) 1 amp NEB Q6H PRN PRN Reason: SHORTNESS OF BREATH Last Admin: 01/28/19 19:55 Dose: 1 amp Budesonide/Formoterol Fumarate (Symbicort 80/4.5mcg -) 2 puff IH BID [facility] Last Admin: 01/29/19 09:38 Dose: 2 puff Docusate Sodium (Colace -) 300 mg PO HS [facility] Last Admin: 01/28/19 22:13 Dose: 300 mg Enoxaparin Sodium (Lovenox -) 40 mg SQ DAILY [facility] Last Admin: 01/29/19 09:38 Dose: 40 mg Ferrous Gluconate (Fergon -) 324 mg PO DAILY [facility] Last Admin: 01/29/19 09:45 Dose: 324 mg Gabapentin (Neurontin -) 300 mg PO BID PRN PRN Reason: PAIN Last Admin: 01/27/19 19:14 Dose: 300 mg Guaifenesin (Robitussin Dm -) 10 ml PO Q6H PRN PRN Reason: COUGH Sodium Chloride (Normal Saline -) 1,000 mls @ 75 mls/hr IV ASDIR [facility] Last Admin: 01/29/19 13:23 Dose: 75 mls/hr Lidocaine (Lidoderm Patch -) 1 patch TP DAILY [facility] Last Admin: 01/29/19 09:33 Dose: 1 patch Lorazepam (Ativan Injection -) 0.5 mg IM TID PRN PRN Reason: ANXIETY Last Admin: 01/29/19 15:43 Dose: 0.5 mg Methadone HCl (Dolophine -) 10 mg PO Q12H [facility] Last Admin: 01/29/19 13:07 Dose: 10 mg Methylprednisolone Sodium Succinate (Solu-Medrol -) 40 mg IVPUSH Q8H-IV [facility] Last Admin: 01/29/19 09:38 Dose: 40 mg Metoprolol Tartrate (Lopressor Injection -) 5 mg IVPUSH Q6H PRN PRN Reason: TACHYCARDIA Last Admin: 01/25/19 16:12 Dose: 5 mg Metoprolol Tartrate (Lopressor -) 50 mg PO BID [facility] Last Admin: 01/29/19 09:37 Dose: 50 mg Miscellaneous (Lidoderm Patch Removal) 1 each MC DAILY@2200 [facility] Last Admin: 01/28/19 22:27 Dose: 1 each Non-Formulary Medication (Cannabidiol (Cbd) Extract) 0.2 ml PO BID [facility] Pantoprazole Sodium (Protonix -) 40 mg PO DAILY [facility] Last Admin: 01/29/19 09:37 Dose: 40 mg Polyethylene Glycol (Miralax (For Daily Use) -) 17 gm PO BID [facility] Last Admin: 01/29/19 09:45 Dose: 17 gm Tamsulosin HCl (Flomax -) 0.4 mg PO BID [facility] Last Admin: 01/29/19 09:37 Dose: 0.4 mg A/P Pt is a 68 y/o gentleman with Rt. lung squamous cell cancer, s/p weekly carbo/ taxol, s/p 1 cycle pembrolizumab, came in with SVT, anemia Also severe Rt. upper chest/shoulder pain--on methadone/oxycodone/priest confusion--? pain meds ? steroids--> Improving. check screening head CT 12/12/18 brain MRI is negative neuroconsult consider psych consult for polypharmacy interaction management and advice. cough-> Guaifenesin pain: Daughter mentioning is considering device proposed by his pain specialist
[2019-01-29] MEDS: guaiFENesin/D-METHORPHAN HB 10 ML UNIT-DOSE CUPS PO PRN (18:04)
[2019-01-29] MEDS: GABAPENTIN 300 MG CAPSULE (FP) PO PRN (18:04)
[2019-01-29] MEDS: ALBUTEROL SO4 2.5/IPRATROPIUM 0.5 INH SOL 3 ML VIAL.NEB. NEB PRN (20:15)
[2019-01-29] MEDS: DOCUSATE SODIUM 100 MG CAPSULE (FP) PO SCH (22:17)
[2019-01-29] MEDS: LIDOCAINE PATCH REMOVAL MC SCH (22:18)
[2019-01-29] MEDS: ACETAMINOPHEN 325 MG TABLET (FP) PO PRN (22:39)
[2019-01-30] MEDS: METHADONE HCL 10 MG TABLET PO SCH ×2 (01:10→13:28)
[2019-01-30] MEDS: methylPREDNISolone NA SUCC 40 MG/1 ML VIAL IVPUSH SCH ×3 (01:29→17:20)
[2019-01-30] MEDS: LORazepam 2 MG/ML SDV VIAL IM PRN (03:23)
--- NOTE | 2019-01-30 05:57 | PN ---
Progress Note, Physician Chief Complaint: Pt sitting up in bed; pleasant, disoriented. History of Present Illness: 01/23/19 22:22 68 yo male (alli Gonzalez) with h/o lung CA on chemo. radiation under care dr pollack, here with fatigue lethargy and sob. was found to be anemic in office called told to come to ED. denies f/c cough chronic. does feel sob. uses nebs at home, no relief. also c/o right back shoulder pain which he has had for some time. no n/v no other complaints. also has had bilat leg swelling edema. was evaluated previously with doppler which were negative for DVT - Current Medication List Current Medications: Active Medications Acetaminophen (Tylenol -) 650 mg PO Q6H PRN PRN Reason: FEVER Last Admin: 01/29/19 22:39 Dose: 650 mg Albuterol/Ipratropium (Duoneb -) 1 amp NEB Q6H PRN PRN Reason: SHORTNESS OF BREATH Last Admin: 01/29/19 20:15 Dose: 1 amp Budesonide/Formoterol Fumarate (Symbicort 80/4.5mcg -) 2 puff IH BID [facility] Last Admin: 01/29/19 22:16 Dose: 2 puff Docusate Sodium (Colace -) 300 mg PO HS [facility] Last Admin: 01/29/19 22:17 Dose: 300 mg Enoxaparin Sodium (Lovenox -) 40 mg SQ DAILY [facility] Last Admin: 01/29/19 09:38 Dose: 40 mg Ferrous Gluconate (Fergon -) 324 mg PO DAILY [facility] Last Admin: 01/29/19 09:45 Dose: 324 mg Gabapentin (Neurontin -) 300 mg PO BID PRN PRN Reason: PAIN Last Admin: 01/29/19 18:04 Dose: 300 mg Guaifenesin (Robitussin Dm -) 10 ml PO Q6H PRN PRN Reason: COUGH Last Admin: 01/29/19 18:04 Dose: 10 ml Sodium Chloride (Normal Saline -) 1,000 mls @ 75 mls/hr IV ASDIR [facility] Last Admin: 01/29/19 18:09 Dose: Not Given Lidocaine (Lidoderm Patch -) 1 patch TP DAILY [facility] Last Admin: 01/29/19 09:33 Dose: 1 patch Lorazepam (Ativan Injection -) 0.5 mg IM TID PRN PRN Reason: ANXIETY Last Admin: 01/30/19 03:23 Dose: 0.5 mg Methadone HCl (Dolophine -) 10 mg PO Q12H [facility] Last Admin: 01/30/19 01:10 Dose: 10 mg Methylprednisolone Sodium Succinate (Solu-Medrol -) 40 mg IVPUSH Q8H-IV [facility] Last Admin: 01/30/19 01:29 Dose: 40 mg Metoprolol Tartrate (Lopressor Injection -) 5 mg IVPUSH Q6H PRN PRN Reason: TACHYCARDIA Last Admin: 01/25/19 16:12 Dose: 5 mg Metoprolol Tartrate (Lopressor -) 50 mg PO BID [facility] Last Admin: 01/29/19 22:17 Dose: 50 mg Miscellaneous (Lidoderm Patch Removal) 1 each MC DAILY@2200 [facility] Last Admin: 01/29/19 22:18 Dose: 1 each Non-Formulary Medication (Cannabidiol (Cbd) Extract) 0.2 ml PO BID [facility] Oxycodone HCl (Roxicodone -) 5 mg PO Q4H PRN PRN Reason: PAIN LEVEL 6-10 Last Admin: 01/29/19 22:39 Dose: 5 mg Pantoprazole Sodium (Protonix -) 40 mg PO DAILY [facility] Last Admin: 01/29/19 09:37 Dose: 40 mg Polyethylene Glycol (Miralax (For Daily Use) -) 17 gm PO BID [facility] Last Admin: 01/29/19 22:18 Dose: 17 gm Tamsulosin HCl (Flomax -) 0.4 mg PO BID [facility] Last Admin: 01/29/19 22:17 Dose: 0.4 mg - Objective Vital Signs: Vital Signs Temperature 97.8 F 01/30/19 02:00 Pulse Rate 94 H 01/30/19 02:00 Respiratory Rate 20 01/30/19 02:00 Blood Pressure 129/72 01/30/19 02:00 O2 Sat by Pulse Oximetry (%) 97 01/29/19 21:00 Constitutional: Yes: Calm Eyes: Yes: WNL HENT: Yes: WNL Neck: Yes: WNL Cardiovascular: Yes: S1, S2 Respiratory: Yes: Regular, Diminished Gastrointestinal: Yes: Soft ...Rectal Exam: Yes: Deferred Genitourinary: No: Anuria Breast(s): Yes: WNL Musculoskeletal: Yes: Muscle Weakness Extremities: Yes: Cool Edema: No Peripheral Pulses WNL: Yes Integumentary: Yes: WNL Neurological: Yes: Confusion, Weakness Psychiatric: Yes: Other (dementia) Problem List - Problems (1) Anemia Code(s): D64.9 - ANEMIA, UNSPECIFIED Qualifiers: Anemia type: unspecified type Qualified Code(s): D64.9 - Anemia, unspecified (2) COPD exacerbation Code(s): J44.1 - CHRONIC OBSTRUCTIVE PULMONARY DISEASE W (ACUTE) EXACERBATION (3) Generalized weakness Code(s): R53.1 - WEAKNESS (4) Lung cancer Code(s): C34.90 - MALIGNANT NEOPLASM OF UNSP PART OF UNSP BRONCHUS OR LUNG (5) PSVT (paroxysmal supraventricular tachycardia) Assessment/Plan: 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 On metoprolol tartrate; or may change metoprolol tartrate to succinate once daily for easier 24 hour compliance. Code(s): I47.1 - SUPRAVENTRICULAR TACHYCARDIA (6) Dementia Code(s): F03.90 - UNSPECIFIED DEMENTIA WITHOUT BEHAVIORAL DISTURBANCE
[2019-01-30 06:00] LABS: BASO % 0.2 % (0-2.0); HEMATOCRIT 25.6 % (35.4-49); HEMOGLOBIN 8.2 GM/dL (11.7-16.9); LYMPH % 0.9 % (8-40); MCH 29.2 pg (25.7-33.7); MCHC 32.1 g/dl (32.0-35.9); MEAN CELL VOLUME 90.9 fl (80-96); MEAN PLT VOLUME 7.1 fl (7.5-11.1); MONO % 3.6 % (3.8-10.2); NEUT % 95.3 % (42.8-82.8); PLATELET COUNT 129 K/MM3 (134-434); RBC 2.81 M/mm3 (4.00-5.60); RDW 16.3 % (11.9-15.9); WHITE BLOOD COUNT 12.9 K/mm3 (4.0-10.0)
[2019-01-30 06:24] LABS: BLOOD UREA NITROGEN 12.6 mg/dL (7-18); CALCIUM 8.4 mg/dL (8.5-10.1); CREATININE 0.4 mg/dL (0.55-1.3); POTASSIUM 3.7 mmol/L (3.5-5.1)
--- NOTE | 2019-01-30 07:28 | PN ---
Physical Exam: SUBJECTIVE: Patient seen and examined. He is more alert and is engaging in conversation. He reports having bilateral leg pain, back pain, and headache. He has a dry cough. OBJECTIVE: Vital Signs Period Temp Pulse Resp BP Sys/Seo Pulse Ox Last 24 Hr 97.6 F-98.7 F 93-113 18- 120-153/69-88 97-98 GENERAL: The patient is awake, alert, and fully oriented, in no acute distress. Sitting up in bed. HEAD: Normal with no signs of trauma. EYES: PERRL, extraocular movements intact, sclera anicteric, conjunctiva clear. No ptosis. ENT: Ears normal, nares patent, moist mucous membranes. NECK: Trachea midline, full range of motion, supple. LUNGS: Expiratory wheezing bilaterally, no accessory muscle use. HEART: Regular rate and rhythm, S1, S2 without murmur, rub or gallop. ABDOMEN: Soft, nontender, nondistended, normoactive bowel sounds EXTREMITIES: 2+ pulses, warm, well-perfused, no edema. NEUROLOGICAL: Cranial nerves II through XII grossly intact. Normal speech, gait not observed. PSYCH: Normal mood, normal affect. SKIN: Warm, dry, normal turgor, no rashes or lesions noted Laboratory Results - last 24 hr 01/29/19 01/30/19 01/30/19 06:11 05:15 05:15 WBC 12.9 H RBC 2.81 L Hgb 8.2 L Hct 25.6 L MCV 90.9 MCH 29.2 MCHC 32.1 RDW 16.3 H Plt Count 129 L MPV 7.1 L Absolute Neuts (auto) 12.3 H Neutrophils % 95.3 H Neutrophils % (Manual) 96.0 H Band Neutrophils % 4.0 Lymphocytes % 0.9 L Lymphocytes % (Manual) 0.0 L Monocytes % 3.6 L Monocytes % (Manual) 0 L D Eosinophils % 0.0 Eosinophils % (Manual) 0.0 D Basophils % 0.2 Basophils % (Manual) 0.0 Myelocytes % (Man) 0 Promyelocytes % (Man) 0 Blast Cells % (Manual) 0 Nucleated RBC % 0 Metamyelocytes 0 Hypochromia 0 Platelet Estimate Adequate Polychromasia 0 Poikilocytosis 1+ Anisocytosis 1+ Microcytosis 1+ Macrocytosis 1+ Ovalocytes 1+ Schistocytes 1+ Sodium 136 Potassium 3.7 Chloride 99 Carbon Dioxide 30 Anion Gap 6 L BUN 12.6 Creatinine 0.4 L Est GFR (CKD-EPI)AfAm 141.45 Est GFR (CKD-EPI)NonAf 122.04 Random Glucose 140 H Calcium 8.4 L Active Medications Generic Name Dose Route Start Last Admin Trade Name Freq PRN Reason Stop Dose Admin Acetaminophen 650 mg 01/27/19 15:22 01/29/19 22:39 Tylenol - PO 650 mg Q6H PRN Administration FEVER Albuterol/Ipratropium 1 amp 01/27/19 08:27 01/29/19 20:15 Duoneb - NEB 1 amp Q6H PRN Administration SHORTNESS OF BREATH Budesonide/Formoterol Fumarate 2 puff 01/28/19 10:00 01/29/19 22:16 Symbicort 80/4.5mcg - IH 2 puff BID [facility] Administration Docusate Sodium 300 mg 01/24/19 22:00 01/29/19 22:17 Colace - PO 300 mg HS [facility] Administration Enoxaparin Sodium 40 mg 01/25/19 10:00 01/29/19 09:38 Lovenox - SQ 40 mg DAILY [facility] Administration Ferrous Gluconate 324 mg 01/28/19 10:00 01/29/19 09:45 Fergon - PO 324 mg DAILY [facility] Administration Gabapentin 300 mg 01/24/19 17:53 01/29/19 18:04 Neurontin - PO 300 mg BID PRN Administration PAIN Guaifenesin 10 ml 01/29/19 14:40 01/29/19 18:04 Robitussin Dm - PO 10 ml Q6H PRN Administration COUGH Sodium Chloride 1,000 mls @ 75 mls/hr 01/24/19 17:53 01/29/19 18:09 Normal Saline - IV Not Given ASDIR [facility] Lidocaine 1 patch 01/27/19 12:30 01/29/19 09:33 Lidoderm Patch - TP 1 patch DAILY [facility] Administration Lorazepam 0.5 mg 01/28/19 09:48 01/30/19 03:23 Ativan Injection - IM 0.5 mg TID PRN Administration ANXIETY Methadone HCl 10 mg 01/25/19 00:15 01/30/19 01:10 Dolophine - PO 10 mg Q12H [facility] Administration Methylprednisolone Sodium Succinate 40 mg 01/28/19 10:00 01/30/19 01:29 Solu-Medrol - IVPUSH 40 mg Q8H-IV [facility] Administration Metoprolol Tartrate 5 mg 01/24/19 16:15 01/25/19 16:12 Lopressor Injection - IVPUSH 5 mg Q6H PRN Administration TACHYCARDIA Metoprolol Tartrate 50 mg 01/27/19 11:01 01/29/19 22:17 Lopressor - PO 50 mg BID [facility] Administration Miscellaneous 1 each 01/27/19 23:00 01/29/19 22:18 Lidoderm Patch Removal MC 1 each DAILY@2200 [facility] Administration Non-Formulary Medication 0.2 ml 01/28/19 10:00 Cannabidiol (Cbd) Extract PO BID [facility] Oxycodone HCl 5 mg 01/29/19 18:14 01/29/19 22:39 Roxicodone - PO 5 mg Q4H PRN Administration PAIN LEVEL 6-10 Pantoprazole Sodium 40 mg 01/28/19 10:00 01/29/19 09:37 Protonix - PO 40 mg DAILY [facility] Administration Polyethylene Glycol 17 gm 01/24/19 22:00 01/29/19 22:18 Miralax (For Daily Use) - PO 17 gm BID [facility] Administration Tamsulosin HCl 0.4 mg 01/28/19 10:00 01/29/19 22:17 Flomax - PO 0.4 mg BID [facility] Administration ASSESSMENT/PLAN: 68 y/o male with right squamous cell carcinoma, SBO s/p bowel resection, polysubstance use, and chronic pain syndrome on methadone sent to ED for symptomatic anemia. Pt is known to Dr. Aviles and was experiencing SOB, tiredness , and lethargy, with office Hb 7.4 requiring transfusion to maintain specific parameters. Pt received PRBC in ED. Pt entered SVT and given adenosine, lopressor, and 50 J cardioversion. Pt transferred monitored in ICU and eventually sent to telemetry. #sepsis 2/2 possible pulmonary embolism vs possible obstructive pneumonia CXR: Prominent mediastinum, RUL cavitary mass, RIGHT early infiltrate, increasing atelectatic changes. POCUS/doppler negative. Afebrile. Tmax 100.5 on 01/27/19. -Will monitor off abx -Cultures NEG (urine, blood, sputum) -TSH WNL -Lopressor 50mg BID -Lopressor 5mg push PRN tachycardia >120 #acute metabolic encephalopathy, medication-induced vs hypercapnia, resolving Oxycodone reduced to 5mg. ABG was pH 7.50. Pt is more cooperative and less agitated. Recent MRI that was negative for mets or acute pathology and low concern for CVA at this time -riya vest PRN agitation as first line -lorazapem PRN agitation #intermittent SVT -Echo- trace TR, EF 60-65% -TSH normal, free T4 slightly elevated -Cards consulted: Metoprolol 25 bid. #anemia of chronic disease Hemodynamically stable with no signs of bleeding. Hb 8.2. s/p 1 unit PRBC. #squamous cell carcinoma MRI brain 12/13/18 showed no mets. -primary heme/onc consulted (Dr. Aviles) -oxycodone 5mg, lidoderm patch, methadone 10mg BID, gabapentin 300mg BID PRN, tylenol -Symbicort -Solumedrol 40mg Q8H -Robitussin PRN cough #transaminitis Alk phos elevated. Unknown if have bone involvement from malignancy. Elevated GGT 189. -continue to monitor FEN NS 75mL/hr monitor electrolytes regular diet DVT Ppx Lovenox GI Ppx Protonix Dispo tele Visit type - Emergency Visit Emergency Visit: Yes ED Registration Date: 01/23/19 Care time: The patient presented to the Emergency Department on the above date and was hospitalized for further evaluation of their emergent condition. - New Patient This patient is new to me today: No - Critical Care Critical Care patient: No - Discharge Referral Referred to [facility] Med P.C.: No ATTENDING PHYSICIAN STATEMENT I saw and evaluated the patient. I reviewed the resident's note and discussed the case with the resident. I agree with the resident's findings and plan as documented. SUBJECTIVE: OBJECTIVE: ASSESSMENT AND PLAN:
--- NOTE | 2019-01-30 09:05 | PN ---
Progress Note (short form) - Note Progress Note: Neurology HISTORY OF PRESENT ILLNESS: This is a 68 year old male with PMH significant for RUL squamous cell CA, diagnosed in August. He presented to the ER from Dr. Aviles's office on day of admission, after he was found to be anemic (H&H 7.9/25.0), and complains of B/L leg edema and generalized weakness over the past 1 week. He stated that he was visiting Dr. Aviles for a regular follow up appointment for his CA, and was due to start new medication (as per Dr. Aviles's note on 01/10, he has completed his course of Carboplatin and Paclitaxel, due to start Keytruda). He was found to be anemic and was referred to [facility] for a blood transfusion. He stated that the leg edema began gradually, over the past week, and he denies any associated trauma or recent illnesses. He also complained of urinary urgency and constipation, both of which began over the past week. He does not remember when he had his last bowel movement. He endorsed subjective fevers over the past day , without any chills, diarrhea, dysuria, hematuria, nausea, vomiting, or diarrhea. He also complained of SOB, light headedness, dizziness, insomnia, and chest pain since his diagnosis in August. The chest pain is on the right side of his chest, 7/10 in intensity, described as a squeezing pain, constant in nature but varying in intensity, radiating to the posterior aspect of his right shoulder, with no recognizable aggravating or alleviating factors. He also complained of a productive cough with yellowish sputum for the past 5 months. He was recently discharged from [facility] on 01/08/19, he was admitted for post obstructive pneumonia and was treated with Zosyn, and discharged on a 1 week course of Augmentin. CT head ordered, not yet completed. Discussed with nurse this morning and patient has been agitated, mention recommending possible psych evaluation as patient had urinated on the floor andalso not cooperative. Allergies No Known Allergies Allergy (Verified 01/23/19 19:29) Active Medications Acetaminophen (Tylenol -) 650 mg PO Q6H PRN PRN Reason: FEVER Last Admin: 01/29/19 22:39 Dose: 650 mg Albuterol/Ipratropium (Duoneb -) 1 amp NEB Q6H PRN PRN Reason: SHORTNESS OF BREATH Last Admin: 01/29/19 20:15 Dose: 1 amp Budesonide/Formoterol Fumarate (Symbicort 80/4.5mcg -) 2 puff IH BID [facility] Last Admin: 01/29/19 22:16 Dose: 2 puff Docusate Sodium (Colace -) 300 mg PO HS [facility] Last Admin: 01/29/19 22:17 Dose: 300 mg Enoxaparin Sodium (Lovenox -) 40 mg SQ DAILY [facility] Last Admin: 01/29/19 09:38 Dose: 40 mg Ferrous Gluconate (Fergon -) 324 mg PO DAILY [facility] Last Admin: 01/29/19 09:45 Dose: 324 mg Gabapentin (Neurontin -) 300 mg PO BID PRN PRN Reason: PAIN Last Admin: 01/29/19 18:04 Dose: 300 mg Guaifenesin (Robitussin Dm -) 10 ml PO Q6H PRN PRN Reason: COUGH Last Admin: 01/29/19 18:04 Dose: 10 ml Sodium Chloride (Normal Saline -) 1,000 mls @ 75 mls/hr IV ASDIR [facility] Last Admin: 01/29/19 18:09 Dose: Not Given Lidocaine (Lidoderm Patch -) 1 patch TP DAILY [facility] Last Admin: 01/29/19 09:33 Dose: 1 patch Lorazepam (Ativan Injection -) 0.5 mg IM TID PRN PRN Reason: ANXIETY Last Admin: 01/30/19 03:23 Dose: 0.5 mg Methadone HCl (Dolophine -) 10 mg PO Q12H [facility] Last Admin: 01/30/19 01:10 Dose: 10 mg Methylprednisolone Sodium Succinate (Solu-Medrol -) 40 mg IVPUSH Q8H-IV [facility] Last Admin: 01/30/19 01:29 Dose: 40 mg Metoprolol Tartrate (Lopressor Injection -) 5 mg IVPUSH Q6H PRN PRN Reason: TACHYCARDIA Last Admin: 01/25/19 16:12 Dose: 5 mg Metoprolol Tartrate (Lopressor -) 50 mg PO BID [facility] Last Admin: 01/29/19 22:17 Dose: 50 mg Miscellaneous (Lidoderm Patch Removal) 1 each MC DAILY@2200 [facility] Last Admin: 01/29/19 22:18 Dose: 1 each Non-Formulary Medication (Cannabidiol (Cbd) Extract) 0.2 ml PO BID [facility] Oxycodone HCl (Roxicodone -) 5 mg PO Q4H PRN PRN Reason: PAIN LEVEL 6-10 Last Admin: 01/29/19 22:39 Dose: 5 mg Pantoprazole Sodium (Protonix -) 40 mg PO DAILY [facility] Last Admin: 01/29/19 09:37 Dose: 40 mg Polyethylene Glycol (Miralax (For Daily Use) -) 17 gm PO BID [facility] Last Admin: 01/29/19 22:18 Dose: 17 gm Tamsulosin HCl (Flomax -) 0.4 mg PO BID [facility] Last Admin: 01/29/19 22:17 Dose: 0.4 mg PHYSICAL EXAMINATION Vital Signs Period Temp Pulse Resp BP Sys/Seo Pulse Ox Last 24 Hr 97.8 F-98.7 F 93-113 18- 120-153/69-88 97 GENERAL: Awake, alert, and fully oriented, in no acute distress. HEAD: Normal with no signs of trauma. EYES: Pupils equal, round and reactive to light, extraocular movements intact, sclera anicteric, conjunctiva clear. No lid lag. EARS, NOSE, THROAT: Ears normal, nares patent, oropharynx clear without exudates. Moist mucous membranes. NECK: Normal range of motion, supple without lymphadenopathy, JVD, or masses. LUNGS: decreased air entry on the right, expiratory wheeze B/L HEART: elevated rate, regular rhythm, normal S1 and S2 without murmur, rub or gallop. ABDOMEN: Soft, nontender, not distended, normoactive bowel sounds, no guarding, no rebound, no masses. No hepatomegaly or splenomegaly. MUSCULOSKELETAL: Normal range of motion at all joints. No bony deformities or tenderness. No CVA tenderness. UPPER EXTREMITIES: 2+ pulses, warm, well-perfused. No cyanosis. No clubbing. No peripheral edema. LOWER EXTREMITIES: B/L pitting edema 2+, more on the right NEUROLOGICAL: Cranial nerves II-XII intact. Normal speech. Normal gait. PSYCHIATRIC: Cooperative. Good eye contact. Appropriate mood and affect. SKIN: Warm, dry, normal turgor, no rashes or lesions noted, normal capillary refill. CBCD WBC 12.9 K/mm3 (4.0-10.0) H 01/30/19 05:15 RBC 2.81 M/mm3 (4.00-5.60) L 01/30/19 05:15 Hgb 8.2 GM/dL (11.7-16.9) L 01/30/19 05:15 Hct 25.6 % (35.4-49) L 01/30/19 05:15 MCV 90.9 fl (80-96) 01/30/19 05:15 MCHC 32.1 g/dl (32.0-35.9) 01/30/19 05:15 RDW 16.3 % (11.9-15.9) H 01/30/19 05:15 Plt Count 129 K/MM3 (134-434) L 01/30/19 05:15 MPV 7.1 fl (7.5-11.1) L 01/30/19 05:15 CMP Sodium 136 mmol/L (136-145) 01/30/19 05:15 Potassium 3.7 mmol/L (3.5-5.1) 01/30/19 05:15 Chloride 99 mmol/L (98-107) 01/30/19 05:15 Carbon Dioxide 30 mmol/L (21-32) 01/30/19 05:15 Anion Gap 6 MMOL/L (8-16) L 01/30/19 05:15 BUN 12.6 mg/dL (7-18) 01/30/19 05:15 Creatinine 0.4 mg/dL (0.55-1.3) L 01/30/19 05:15 Random Glucose 140 mg/dL (74-106) H 01/30/19 05:15 Calcium 8.4 mg/dL (8.5-10.1) L 01/30/19 05:15 Total Bilirubin 0.9 mg/dL (0.2-1) 01/27/19 06:10 AST 28 U/L (15-37) 01/27/19 06:10 ALT 28 U/L (13-61) 01/27/19 06:10 Alkaline Phosphatase 281 U/L (45-117) H 01/27/19 06:10 Total Protein 6.0 g/dl (6.4-8.2) L 01/27/19 06:10 Albumin 2.1 g/dl (3.4-5.0) L 01/27/19 06:10 ASSESSMENT/PLAN: This is a 68 year old male with PMH significant for RUL squamous cell CA, diagnosed in August. He presented to the ER from Dr. Aviles's office on day of admission, after he was found to be anemic (H&H 7.9/25.0), and complains of B/L leg edema and generalized weakness over the past 1 week. He stated that he was visiting Dr. Aviles for a regular follow up appointment for his CA, and was due to start new medication (as per Dr. Aviles's note on 01/10, he has completed his course of Carboplatin and Paclitaxel, due to start Keytruda). He was found to be anemic and was referred to [facility] for a blood transfusion. He stated that the leg edema began gradually, over the past week, and he denies any associated trauma or recent illnesses. He also complained of urinary urgency and constipation, both of which began over the past week. He does not remember when he had his last bowel movement. He endorses subjective fevers over the past day , without any chills, diarrhea, dysuria, hematuria, nausea, vomiting, or diarrhea. He also complained of SOB, light headedness, dizziness, insomnia, and chest pain since his diagnosis in August. The chest pain is on the right side of his chest, 7/10 in intensity, described as a squeezing pain, constant in nature but varying in intensity, radiating to the posterior aspect of his right shoulder, with no recognizable aggravating or alleviating factors. He also complained of a productive cough with yellowish sputum for the past 5 months. He was recently discharged from [facility] on 01/08/19, he was admitted for post obstructive pneumonia and was treated with Zosyn, and discharged on a 1 week course of Augmentin. CT head ordered, not yet completed. Discussed with nurse this morning and patient has been agitated, mention recommending possible psych evaluation as patient had urinated on the floor and also not cooperative. Continue monitoring mental status, frequent reorientation. Continue management of anemia
[2019-01-30] MEDS ORDERED: PT OWN MED DRAWER 7, Y5N ONE ×2 (10:02→17:18)
[2019-01-30] MEDS: FERROUS GLUCONATE 324 MG TAB (FP) PO SCH (10:10)
[2019-01-30] MEDS: PANTOPRAZOLE 40 MG TABLET (FP) PO SCH (10:10)
[2019-01-30] MEDS: METOPROLOL TARTRATE 25 MG TABLET (FP) PO SCH ×2 (10:10→21:22)
[2019-01-30] MEDS: ENOXAPARIN NA (PORCINE) 40 MG/0.4 ML DISP.SYRIN SQ SCH (10:10)
[2019-01-30] MEDS: TAMSULOSIN HCL 0.4 MG CAP PO SCH ×2 (10:10→21:22)
[2019-01-30] MEDS: POLYETHYLENE GLYCOL 3350 119 GM BTL PO SCH ×2 (10:11→21:22)
[2019-01-30] MEDS: LIDOCAINE 5% TOPICAL PATCH TP SCH (10:11)
[2019-01-30] MEDS: BUDESONIDE/FORMETEROL FUMARATE 80/4.5 mcg INHALER IH SCH ×2 (10:11→21:49)
[2019-01-30] MEDS: guaiFENesin/D-METHORPHAN HB 10 ML UNIT-DOSE CUPS PO PRN (10:13)
[2019-01-30] MEDS: oxyCODONE HCL 5 MG TABLET PO PRN ×2 (10:13→21:21)
[2019-01-30] MEDS: SODIUM CHLORIDE 1,000 ML IV SCH (10:32)
--- NOTE | 2019-01-30 10:45 | PN ---
Teaching Attending Note Name of Resident: Sherry Kapadia ATTENDING PHYSICIAN STATEMENT I saw and evaluated the patient. I reviewed the resident's note and discussed the case with the resident. I agree with the resident's findings and plan as documented. SUBJECTIVE: Patient sitting in bed. He is confused and appears comfortable. OBJECTIVE: Vital Signs Period Temp Pulse Resp BP Sys/Seo Pulse Ox Last 24 Hr 97.4 F-98.7 F 93-113 18-22 120-153/69-88 97 HEART: S1S2, tachycardic LUNGS: Clear ABDOMEN: Soft, non-tender, non-distended, normal BS EXTREMITIES: 1+ edema Laboratory Results - last 24 hr 01/29/19 01/30/19 01/30/19 06:11 05:15 05:15 WBC 12.9 H RBC 2.81 L Hgb 8.2 L Hct 25.6 L MCV 90.9 MCH 29.2 MCHC 32.1 RDW 16.3 H Plt Count 129 L MPV 7.1 L Absolute Neuts (auto) 12.3 H Neutrophils % 95.3 H Neutrophils % (Manual) 96.0 H Band Neutrophils % 4.0 Lymphocytes % 0.9 L Lymphocytes % (Manual) 0.0 L Monocytes % 3.6 L Monocytes % (Manual) 0 L D Eosinophils % 0.0 Eosinophils % (Manual) 0.0 D Basophils % 0.2 Basophils % (Manual) 0.0 Myelocytes % (Man) 0 Promyelocytes % (Man) 0 Blast Cells % (Manual) 0 Nucleated RBC % 0 Metamyelocytes 0 Hypochromia 0 Platelet Estimate Adequate Polychromasia 0 Poikilocytosis 1+ Anisocytosis 1+ Microcytosis 1+ Macrocytosis 1+ Ovalocytes 1+ Schistocytes 1+ Sodium 136 Potassium 3.7 Chloride 99 Carbon Dioxide 30 Anion Gap 6 L BUN 12.6 Creatinine 0.4 L Est GFR (CKD-EPI)AfAm 141.45 Est GFR (CKD-EPI)NonAf 122.04 Random Glucose 140 H Calcium 8.4 L Current Medications Generic Name Dose Route Start Last Admin Trade Name Freq PRN Reason Stop Dose Admin Acetaminophen 650 mg 01/27/19 15:22 01/29/19 22:39 Tylenol - PO 650 mg Q6H PRN Administration FEVER Albuterol/Ipratropium 1 amp 01/27/19 08:27 01/29/19 20:15 Duoneb - NEB 1 amp Q6H PRN Administration SHORTNESS OF BREATH Budesonide/Formoterol Fumarate 2 puff 01/28/19 10:00 01/30/19 10:11 Symbicort 80/4.5mcg - IH 2 puff BID SHIRA Administration Docusate Sodium 300 mg 01/24/19 22:00 01/29/19 22:17 Colace - PO 300 mg HS SHIRA Administration Enoxaparin Sodium 40 mg 01/25/19 10:00 01/30/19 10:10 Lovenox - SQ 40 mg DAILY SHIRA Administration Ferrous Gluconate 324 mg 01/28/19 10:00 01/30/19 10:10 Fergon - PO 324 mg DAILY SHIRA Administration Gabapentin 300 mg 01/24/19 17:53 01/29/19 18:04 Neurontin - PO 300 mg BID PRN Administration PAIN Guaifenesin 10 ml 01/29/19 14:40 01/30/19 10:13 Robitussin Dm - PO 10 ml Q6H PRN Administration COUGH Sodium Chloride 1,000 mls @ 75 mls/hr 01/24/19 17:53 01/30/19 10:32 Normal Saline - IV 75 mls/hr ASDIR SHIRA Administration Lidocaine 1 patch 01/27/19 12:30 01/30/19 10:11 Lidoderm Patch - TP 1 patch DAILY SHIRA Administration Lorazepam 0.5 mg 01/28/19 09:48 01/30/19 03:23 Ativan Injection - IM 0.5 mg TID PRN Administration ANXIETY Methadone HCl 10 mg 01/25/19 00:15 01/30/19 01:10 Dolophine - PO 10 mg Q12H SHIRA Administration Methylprednisolone Sodium Succinate 40 mg 01/28/19 10:00 01/30/19 10:10 Solu-Medrol - IVPUSH 40 mg Q8H-IV SHIRA Administration Metoprolol Tartrate 5 mg 01/24/19 16:15 01/25/19 16:12 Lopressor Injection - IVPUSH 5 mg Q6H PRN Administration TACHYCARDIA Metoprolol Tartrate 50 mg 01/27/19 11:01 01/30/19 10:10 Lopressor - PO 50 mg BID SHIRA Administration Miscellaneous 1 each 01/27/19 23:00 01/29/19 22:18 Lidoderm Patch Removal MC 1 each DAILY@2200 SHIRA Administration Non-Formulary Medication 0.2 ml 01/28/19 10:00 Cannabidiol (Cbd) Extract PO BID SHIRA Oxycodone HCl 5 mg 01/29/19 18:14 01/30/19 10:13 Roxicodone - PO 5 mg Q4H PRN Administration PAIN LEVEL 6-10 Pantoprazole Sodium 40 mg 01/28/19 10:00 01/30/19 10:10 Protonix - PO 40 mg DAILY SHIRA Administration Polyethylene Glycol 17 gm 01/24/19 22:00 01/30/19 10:11 Miralax (For Daily Use) - PO 17 gm BID SHIRA Administration Tamsulosin HCl 0.4 mg 01/28/19 10:00 01/30/19 10:10 Flomax - PO 0.4 mg BID SHIRA Administration ASSESSMENT AND PLAN: This is a 68 year old man with a history of squamous cell lung cancer, bowel resection secondary to obstruction, tobacco use, alcohol use, chronic pain syndrome, opioid dependence who was sent by Dr. Aviles to the ED for weakness, leg edema, and anemia. 1. Acute metabolic encephalopathy - Etiology not clear - Possibly secondary to medications 2. Paroxysmal supraventricular tachycardia - Given Adenosine in ED - Remains in sinus rhythm - Continue Lopressor 3. Acute exacerbation of COPD - SoluMedrol being tapered - Continue Symbicort, DuoNeb as needed 4. Anemia secondary to chronic illness - Continue ferrous gluconate 5. Squamous cell lung cancer 6. Chronic pain syndrome - Continue Methadone, Lidoderm patch, Neurontin, oxycodone as needed
[2019-01-30 11:09] LABS: ANISOCYTOSIS 1+; MACROCYTOSIS 0; PLATELET ESTIMATE DECREASED
--- NOTE | 2019-01-30 11:15 | PN ---
Progress Note, Physician History of Present Illness: pulmonary oob-chair confused, restless,-resp distress - Current Medication List Current Medications: Active Medications Acetaminophen (Tylenol -) 650 mg PO Q6H PRN PRN Reason: FEVER Last Admin: 01/29/19 22:39 Dose: 650 mg Albuterol/Ipratropium (Duoneb -) 1 amp NEB Q6H PRN PRN Reason: SHORTNESS OF BREATH Last Admin: 01/29/19 20:15 Dose: 1 amp Budesonide/Formoterol Fumarate (Symbicort 80/4.5mcg -) 2 puff IH BID SHIRA Last Admin: 01/30/19 10:11 Dose: 2 puff Docusate Sodium (Colace -) 300 mg PO HS [facility] Last Admin: 01/29/19 22:17 Dose: 300 mg Enoxaparin Sodium (Lovenox -) 40 mg SQ DAILY [facility] Last Admin: 01/30/19 10:10 Dose: 40 mg Ferrous Gluconate (Fergon -) 324 mg PO DAILY [facility] Last Admin: 01/30/19 10:10 Dose: 324 mg Gabapentin (Neurontin -) 300 mg PO BID PRN PRN Reason: PAIN Last Admin: 01/29/19 18:04 Dose: 300 mg Guaifenesin (Robitussin Dm -) 10 ml PO Q6H PRN PRN Reason: COUGH Last Admin: 01/30/19 10:13 Dose: 10 ml Sodium Chloride (Normal Saline -) 1,000 mls @ 75 mls/hr IV ASDIR [facility] Last Admin: 01/30/19 10:32 Dose: 75 mls/hr Lidocaine (Lidoderm Patch -) 1 patch TP DAILY [facility] Last Admin: 01/30/19 10:11 Dose: 1 patch Lorazepam (Ativan Injection -) 0.5 mg IM TID PRN PRN Reason: ANXIETY Last Admin: 01/30/19 03:23 Dose: 0.5 mg Methadone HCl (Dolophine -) 10 mg PO Q12H [facility] Last Admin: 01/30/19 01:10 Dose: 10 mg Methylprednisolone Sodium Succinate (Solu-Medrol -) 40 mg IVPUSH Q8H-IV SHIRA Last Admin: 01/30/19 10:10 Dose: 40 mg Metoprolol Tartrate (Lopressor Injection -) 5 mg IVPUSH Q6H PRN PRN Reason: TACHYCARDIA Last Admin: 01/25/19 16:12 Dose: 5 mg Metoprolol Tartrate (Lopressor -) 50 mg PO BID [facility] Last Admin: 01/30/19 10:10 Dose: 50 mg Miscellaneous (Lidoderm Patch Removal) 1 each MC DAILY@2200 [facility] Last Admin: 01/29/19 22:18 Dose: 1 each Non-Formulary Medication (Cannabidiol (Cbd) Extract) 0.2 ml PO BID [facility] Oxycodone HCl (Roxicodone -) 5 mg PO Q4H PRN PRN Reason: PAIN LEVEL 6-10 Last Admin: 01/30/19 10:13 Dose: 5 mg Pantoprazole Sodium (Protonix -) 40 mg PO DAILY [facility] Last Admin: 01/30/19 10:10 Dose: 40 mg Polyethylene Glycol (Miralax (For Daily Use) -) 17 gm PO BID [facility] Last Admin: 01/30/19 10:11 Dose: 17 gm Tamsulosin HCl (Flomax -) 0.4 mg PO BID [facility] Last Admin: 01/30/19 10:10 Dose: 0.4 mg - Objective Vital Signs: Vital Signs Temperature 97.4 F L 01/30/19 10:19 Pulse Rate 111 H 01/30/19 10:19 Respiratory Rate 20 01/30/19 10:19 Blood Pressure 139/82 01/30/19 10:19 O2 Sat by Pulse Oximetry (%) 97 01/29/19 21:00 Constitutional: Yes: Thin, Other (restless) Eyes: Yes: WNL HENT: Yes: WNL Neck: Yes: WNL Cardiovascular: Yes: Regular Rate and Rhythm, S1, S2 Respiratory: Yes: Diminished, Rhonchi (few scattered rhonchi) Gastrointestinal: Yes: Normal Bowel Sounds, Soft Extremities: Yes: WNL Edema: No Labs: CBC, BMP 01/30/19 05:15 01/30/19 05:15 Problem List - Problems (1) Agitated Code(s): R45.1 - RESTLESSNESS AND AGITATION (2) Anemia Code(s): D64.9 - ANEMIA, UNSPECIFIED Qualifiers: Anemia type: unspecified type Qualified Code(s): D64.9 - Anemia, unspecified (3) COPD exacerbation Code(s): J44.1 - CHRONIC OBSTRUCTIVE PULMONARY DISEASE W (ACUTE) EXACERBATION (4) Dysrhythmia Code(s): I49.9 - CARDIAC ARRHYTHMIA, UNSPECIFIED (5) Lung cancer Code(s): C34.90 - MALIGNANT NEOPLASM OF UNSP PART OF UNSP BRONCHUS OR LUNG (6) PSVT (paroxysmal supraventricular tachycardia) Code(s): I47.1 - SUPRAVENTRICULAR TACHYCARDIA Assessment/Plan ASSESSMENT AND PLAN: SVT s/p DCCV Advanced NSCLC (Squamous cell) s/p chemo Low clinical impression of PNA Chronic Pain/Methadone Maintenance Anemia Smoker - rate control - monitor H/H - Normal transfusion threshold - DVT prophylaxis - medrol taper - DR EDWARDS
--- NOTE | 2019-01-30 11:33 | PN ---
Progress Note, Physician History of Present Illness: Confused sitting in wheelchair. - Current Medication List Current Medications: Active Medications Acetaminophen (Tylenol -) 650 mg PO Q6H PRN PRN Reason: FEVER Last Admin: 01/29/19 22:39 Dose: 650 mg Albuterol/Ipratropium (Duoneb -) 1 amp NEB Q6H PRN PRN Reason: SHORTNESS OF BREATH Last Admin: 01/29/19 20:15 Dose: 1 amp Budesonide/Formoterol Fumarate (Symbicort 80/4.5mcg -) 2 puff IH BID SHIRA Last Admin: 01/30/19 10:11 Dose: 2 puff Docusate Sodium (Colace -) 300 mg PO HS [facility] Last Admin: 01/29/19 22:17 Dose: 300 mg Enoxaparin Sodium (Lovenox -) 40 mg SQ DAILY [facility] Last Admin: 01/30/19 10:10 Dose: 40 mg Ferrous Gluconate (Fergon -) 324 mg PO DAILY [facility] Last Admin: 01/30/19 10:10 Dose: 324 mg Gabapentin (Neurontin -) 300 mg PO BID PRN PRN Reason: PAIN Last Admin: 01/29/19 18:04 Dose: 300 mg Guaifenesin (Robitussin Dm -) 10 ml PO Q6H PRN PRN Reason: COUGH Last Admin: 01/30/19 10:13 Dose: 10 ml Sodium Chloride (Normal Saline -) 1,000 mls @ 75 mls/hr IV ASDIR [facility] Last Admin: 01/30/19 10:32 Dose: 75 mls/hr Lidocaine (Lidoderm Patch -) 1 patch TP DAILY [facility] Last Admin: 01/30/19 10:11 Dose: 1 patch Lorazepam (Ativan Injection -) 0.5 mg IM TID PRN PRN Reason: ANXIETY Last Admin: 01/30/19 03:23 Dose: 0.5 mg Methadone HCl (Dolophine -) 10 mg PO Q12H SHIRA Last Admin: 01/30/19 01:10 Dose: 10 mg Methylprednisolone Sodium Succinate (Solu-Medrol -) 40 mg IVPUSH Q8H-IV SHIRA Last Admin: 01/30/19 10:10 Dose: 40 mg Metoprolol Tartrate (Lopressor Injection -) 5 mg IVPUSH Q6H PRN PRN Reason: TACHYCARDIA Last Admin: 01/25/19 16:12 Dose: 5 mg Metoprolol Tartrate (Lopressor -) 50 mg PO BID [facility] Last Admin: 01/30/19 10:10 Dose: 50 mg Miscellaneous (Lidoderm Patch Removal) 1 each MC DAILY@2200 [facility] Last Admin: 01/29/19 22:18 Dose: 1 each Non-Formulary Medication (Cannabidiol (Cbd) Extract) 0.2 ml PO BID [facility] Oxycodone HCl (Roxicodone -) 5 mg PO Q4H PRN PRN Reason: PAIN LEVEL 6-10 Last Admin: 01/30/19 10:13 Dose: 5 mg Pantoprazole Sodium (Protonix -) 40 mg PO DAILY [facility] Last Admin: 01/30/19 10:10 Dose: 40 mg Polyethylene Glycol (Miralax (For Daily Use) -) 17 gm PO BID [facility] Last Admin: 01/30/19 10:11 Dose: 17 gm Tamsulosin HCl (Flomax -) 0.4 mg PO BID [facility] Last Admin: 01/30/19 10:10 Dose: 0.4 mg - Objective Vital Signs: Vital Signs Temperature 97.4 F L 01/30/19 10:19 Pulse Rate 111 H 01/30/19 10:19 Respiratory Rate 20 01/30/19 10:19 Blood Pressure 139/82 01/30/19 10:19 O2 Sat by Pulse Oximetry (%) 97 01/29/19 21:00 Constitutional: Yes: No Distress, Calm, Thin Neck: Yes: Supple Cardiovascular: Yes: Regular Rate and Rhythm Respiratory: Yes: Regular, Diminished Gastrointestinal: Yes: Normal Bowel Sounds, Soft Edema: No Labs: CBC, BMP 01/30/19 05:15 01/30/19 05:15 - ....Imaging Chest X-ray: Report Reviewed (RUL cavitary lesion) EKG: Report Reviewed (Off telemetry) Problem List - Problems (1) Anemia Code(s): D64.9 - ANEMIA, UNSPECIFIED Qualifiers: Anemia type: unspecified type Qualified Code(s): D64.9 - Anemia, unspecified (2) Generalized weakness Code(s): R53.1 - WEAKNESS (3) Hyponatremia Code(s): E87.1 - HYPO-OSMOLALITY AND HYPONATREMIA (4) Lung cancer Code(s): C34.90 - MALIGNANT NEOPLASM OF UNSP PART OF UNSP BRONCHUS OR LUNG (5) PSVT (paroxysmal supraventricular tachycardia) Code(s): I47.1 - SUPRAVENTRICULAR TACHYCARDIA Assessment/Plan 01/26/2019 Echocardiography: Normal LV and RV size and fxn tr TR 1. PSVT s/p adenosine and cardioversion to sinus tachycardia 2. Squamous cell CA of lung s/p chemotherapy and radiation therapy 3. History of pneumonia 4. Anemia s/p PRBC transfusion 5. Generalized weakness due to above 6. Organic brain syndrome 7. Hyponatremia resolved PLAN: 1. Continue Metoprolol 50 bid 2. Removed telemetry monitors 3. Transfuse PRBC as needed and follow CBC 4. Monitor NA and correct 5. DVT prophylaxis 6. Completed empiric antibiotic coverage, IV steroid taper, BD and O2 as needed
--- NOTE | 2019-01-30 16:18 | PN ---
Progress Note (short form) - Note Progress Note: Hematology and oncology follow up note Subjective: Patient seen and examined sitting in a wheelchair outside of his room. No new complaints. Objective: Vital Signs Temperature 97.8 F 01/30/19 14:00 Pulse Rate 92 H 01/30/19 14:00 Respiratory Rate 18 01/30/19 14:00 Blood Pressure 125/68 01/30/19 14:00 O2 Sat by Pulse Oximetry (%) 97 01/29/19 21:00 PE: Gen: Patient sitting in wheelchair outside of his room. Patient responds in one word sentences and falls asleep during the interview. Cardio: regular rate and rhythm. S1, S2 heard. No murmurs, gallops, rubs Pulm: Lungs CTA b/l down to the bases. Abdomen: Soft, nontender, nondistended. Bowel sounds heard. Neuro: CN 2 -10 intact b/l. Patient A&O x3. Moving all 4 limbs spontaneously. CBC, BMP 01/30/19 05:15 01/30/19 05:15 Assessment & plan: The patient is a 68 yo m w/ PMH Rt. lung squamous cell carcinoma s/p weekly carbo/taxol, s/p 1 cycle pembrolizumab who was admitted to telemetry for SVT, anemia, AMS. # Confusion -possibly 2/2 combination of pain meds and steroids -neuro consulted, recommends CT head, psych consult. Patient unable to lie flat and still to tolerate this study. -patient A&O x3 today #anemia -Hb 8.2 today from 9.1. -monitor CBC -maintain normal transfusion thresholds. #leukocytosis -likely 2/2 steroid use
[2019-01-30] MEDS: CANNABIDIOL PO SCH ×2 (17:14→17:15)
[2019-01-30] MEDS: GABAPENTIN 300 MG CAPSULE (FP) PO PRN (17:20)
[2019-01-30] MEDS: ALBUTEROL SO4 2.5/IPRATROPIUM 0.5 INH SOL 3 ML VIAL.NEB. NEB PRN (20:40)
[2019-01-30] MEDS: DOCUSATE SODIUM 100 MG CAPSULE (FP) PO SCH (21:22)
--- NOTE | 2019-01-30 21:50 | PN ---
Progress Note (short form) - Note Progress Note: PAtient seen and examined Confused Following simple commands AFVSS Cor: RSR, No murmurs, No gallops Lungs: decreased at bases Abd: Soft, Normal bowel sounds, No organomegaly Ext:No significant edema Labs/Meds reviewed A/P Pt is a 68 y/o M with Rt. lung squamous cell cancer, s/p weekly carbo/taxol, s/ p 1 cycle pembrolizumab, comes in with ,SVT, anemia Also severe Rt. upperchest/shoulder pain--on methadone/oxycodone/marinol On steroids Low suspicion for PNA per pulmonary confusion--? pain meds ? steroids checking screening head CT 12/12/18 brain MRI is negative neuro /psych follow up
[2019-01-30] MEDS: LIDOCAINE PATCH REMOVAL MC SCH (22:42)
[2019-01-31] MEDS: METHADONE HCL 10 MG TABLET PO SCH ×3 (00:41→23:23)
[2019-01-31] MEDS ORDERED: MELATONIN 5 MG TABLETS PO ONE (01:58)
[2019-01-31] MEDS: methylPREDNISolone NA SUCC 40 MG/1 ML VIAL IVPUSH SCH ×2 (02:55→12:00)
[2019-01-31] MEDS: SODIUM CHLORIDE 1,000 ML IV SCH ×3 (04:19→23:27)
[2019-01-31 07:02] LABS: BASO % 0.5 % (0-2.0); HEMATOCRIT 29.1 % (35.4-49); HEMOGLOBIN 9.4 GM/dL (11.7-16.9); LYMPH % 0.9 % (8-40); MCH 29.3 pg (25.7-33.7); MCHC 32.2 g/dl (32.0-35.9); MEAN CELL VOLUME 90.8 fl (80-96); MEAN PLT VOLUME 7.8 fl (7.5-11.1); MONO % 2.5 % (3.8-10.2); NEUT % 96.1 % (42.8-82.8); PLATELET COUNT 139 K/MM3 (134-434); RDW 16.6 % (11.9-15.9); WHITE BLOOD COUNT 16.6 K/mm3 (4.0-10.0)
[2019-01-31 07:28] LABS: BLOOD UREA NITROGEN 11.4 mg/dL (7-18); CALCIUM 8.8 mg/dL (8.5-10.1); CREATININE 0.4 mg/dL (0.55-1.3); POTASSIUM 3.6 mmol/L (3.5-5.1)
--- NOTE | 2019-01-31 08:46 | PN ---
Progress Note (short form) - Note Progress Note: Neurology HISTORY OF PRESENT ILLNESS: This is a 68 year old male with PMH significant for RUL squamous cell CA, diagnosed in August. He presented to the ER from Dr. Aviles's office on day of admission, after he was found to be anemic (H&H 7.9/25.0), and complains of B/L leg edema and generalized weakness over the past 1 week. He stated that he was visiting Dr. Aviles for a regular follow up appointment for his CA, and was due to start new medication (as per Dr. Aviles's note on 01/10, he has completed his course of Carboplatin and Paclitaxel, due to start Keytruda). He was found to be anemic and was referred to [facility] for a blood transfusion. He stated that the leg edema began gradually, over the past week, and he denies any associated trauma or recent illnesses. He also complained of urinary urgency and constipation, both of which began over the past week. He does not remember when he had his last bowel movement. He endorsed subjective fevers over the past day , without any chills, diarrhea, dysuria, hematuria, nausea, vomiting, or diarrhea. He also complained of SOB, light headedness, dizziness, insomnia, and chest pain since his diagnosis in August. The chest pain is on the right side of his chest, 7/10 in intensity, described as a squeezing pain, constant in nature but varying in intensity, radiating to the posterior aspect of his right shoulder, with no recognizable aggravating or alleviating factors. He also complained of a productive cough with yellowish sputum for the past 5 months. He was recently discharged from [facility] on 01/08/19, he was admitted for post obstructive pneumonia and was treated with Zosyn, and discharged on a 1 week course of Augmentin. CT head ordered, not yet completed. Discussed with resident this morning, psych consult may be of benefit. Reviewed patient's MRI of the brain from December 2018 and did not indicate any metastasis or significant structural abnormalities. Allergies No Known Allergies Allergy (Verified 01/23/19 19:29) Active Medications Acetaminophen (Tylenol -) 650 mg PO Q6H PRN PRN Reason: FEVER Last Admin: 01/29/19 22:39 Dose: 650 mg Albuterol/Ipratropium (Duoneb -) 1 amp NEB Q6H PRN PRN Reason: SHORTNESS OF BREATH Last Admin: 01/30/19 20:40 Dose: 1 amp Budesonide/Formoterol Fumarate (Symbicort 80/4.5mcg -) 2 puff IH BID [facility] Last Admin: 01/30/19 21:49 Dose: 2 puff Docusate Sodium (Colace -) 300 mg PO HS [facility] Last Admin: 01/30/19 21:22 Dose: 300 mg Enoxaparin Sodium (Lovenox -) 40 mg SQ DAILY [facility] Last Admin: 01/30/19 10:10 Dose: 40 mg Ferrous Gluconate (Fergon -) 324 mg PO DAILY [facility] Last Admin: 01/30/19 10:10 Dose: 324 mg Gabapentin (Neurontin -) 300 mg PO BID PRN PRN Reason: PAIN Last Admin: 01/30/19 17:20 Dose: 300 mg Guaifenesin (Robitussin Dm -) 10 ml PO Q6H PRN PRN Reason: COUGH Last Admin: 01/30/19 10:13 Dose: 10 ml Sodium Chloride (Normal Saline -) 1,000 mls @ 75 mls/hr IV ASDIR [facility] Last Admin: 01/31/19 04:19 Dose: 75 mls/hr Lidocaine (Lidoderm Patch -) 1 patch TP DAILY [facility] Last Admin: 01/30/19 10:11 Dose: 1 patch Lorazepam (Ativan Injection -) 0.5 mg IM TID PRN PRN Reason: ANXIETY Last Admin: 01/30/19 03:23 Dose: 0.5 mg Methadone HCl (Dolophine -) 10 mg PO Q12H [facility] Last Admin: 01/31/19 00:41 Dose: 10 mg Methylprednisolone Sodium Succinate (Solu-Medrol -) 40 mg IVPUSH Q8H-IV [facility] Last Admin: 01/31/19 02:55 Dose: 40 mg Metoprolol Tartrate (Lopressor Injection -) 5 mg IVPUSH Q6H PRN PRN Reason: TACHYCARDIA Last Admin: 01/25/19 16:12 Dose: 5 mg Metoprolol Tartrate (Lopressor -) 50 mg PO BID [facility] Last Admin: 01/30/19 21:22 Dose: 50 mg Miscellaneous (Lidoderm Patch Removal) 1 each MC DAILY@2200 [facility] Last Admin: 01/30/19 22:42 Dose: 1 each Oxycodone HCl (Roxicodone -) 5 mg PO Q4H PRN PRN Reason: PAIN LEVEL 6-10 Last Admin: 01/30/19 21:21 Dose: 5 mg Pantoprazole Sodium (Protonix -) 40 mg PO DAILY [facility] Last Admin: 01/30/19 10:10 Dose: 40 mg Polyethylene Glycol (Miralax (For Daily Use) -) 17 gm PO BID [facility] Last Admin: 01/30/19 21:22 Dose: 17 gm Tamsulosin HCl (Flomax -) 0.4 mg PO BID [facility] Last Admin: 01/30/19 21:22 Dose: 0.4 mg PHYSICAL EXAMINATION Vital Signs Period Temp Pulse Resp BP Sys/Seo Pulse Ox Last 24 Hr 97.4 F-98.6 F 92-114 18-20 125-162/68-90 95-98 GENERAL: Awake, alert, and fully oriented, in no acute distress. HEAD: Normal with no signs of trauma. EYES: Pupils equal, round and reactive to light, extraocular movements intact, sclera anicteric, conjunctiva clear. No lid lag. EARS, NOSE, THROAT: Ears normal, nares patent, oropharynx clear without exudates. Moist mucous membranes. NECK: Normal range of motion, supple without lymphadenopathy, JVD, or masses. LUNGS: decreased air entry on the right, expiratory wheeze B/L HEART: elevated rate, regular rhythm, normal S1 and S2 without murmur, rub or gallop. ABDOMEN: Soft, nontender, not distended, normoactive bowel sounds, no guarding, no rebound, no masses. No hepatomegaly or splenomegaly. MUSCULOSKELETAL: Normal range of motion at all joints. No bony deformities or tenderness. No CVA tenderness. UPPER EXTREMITIES: 2+ pulses, warm, well-perfused. No cyanosis. No clubbing. No peripheral edema. LOWER EXTREMITIES: B/L pitting edema 2+, more on the right NEUROLOGICAL: Cranial nerves II-XII intact. Normal speech. Normal gait. PSYCHIATRIC: Cooperative. Good eye contact. Appropriate mood and affect. SKIN: Warm, dry, normal turgor, no rashes or lesions noted, normal capillary refill. CBCD WBC 16.6 K/mm3 (4.0-10.0) H 01/31/19 06:12 RBC 3.20 M/mm3 (4.00-5.60) L 01/31/19 06:12 Hgb 9.4 GM/dL (11.7-16.9) L 01/31/19 06:12 Hct 29.1 % (35.4-49) L 01/31/19 06:12 MCV 90.8 fl (80-96) 01/31/19 06:12 MCHC 32.2 g/dl (32.0-35.9) 01/31/19 06:12 RDW 16.6 % (11.9-15.9) H 01/31/19 06:12 Plt Count 139 K/MM3 (134-434) 01/31/19 06:12 MPV 7.8 fl (7.5-11.1) 01/31/19 06:12 CMP Sodium 133 mmol/L (136-145) L 01/31/19 06:12 Potassium 3.6 mmol/L (3.5-5.1) 01/31/19 06:12 Chloride 95 mmol/L (98-107) L 01/31/19 06:12 Carbon Dioxide 30 mmol/L (21-32) 01/31/19 06:12 Anion Gap 9 MMOL/L (8-16) 01/31/19 06:12 BUN 11.4 mg/dL (7-18) 01/31/19 06:12 Creatinine 0.4 mg/dL (0.55-1.3) L 01/31/19 06:12 Random Glucose 141 mg/dL (74-106) H 01/31/19 06:12 Calcium 8.8 mg/dL (8.5-10.1) 01/31/19 06:12 Total Bilirubin 0.9 mg/dL (0.2-1) 01/27/19 06:10 AST 28 U/L (15-37) 01/27/19 06:10 ALT 28 U/L (13-61) 01/27/19 06:10 Alkaline Phosphatase 281 U/L (45-117) H 01/27/19 06:10 Total Protein 6.0 g/dl (6.4-8.2) L 01/27/19 06:10 Albumin 2.1 g/dl (3.4-5.0) L 01/27/19 06:10 ASSESSMENT/PLAN: This is a 68 year old male with PMH significant for RUL squamous cell CA, diagnosed in August. He presented to the ER from Dr. Aviles's office on day of admission, after he was found to be anemic (H&H 7.9/25.0), and complains of B/L leg edema and generalized weakness over the past 1 week. He stated that he was visiting Dr. Aviles for a regular follow up appointment for his CA, and was due to start new medication (as per Dr. Aviles's note on 01/10, he has completed his course of Carboplatin and Paclitaxel, due to start Keytruda). He was found to be anemic and was referred to [facility] for a blood transfusion. He stated that the leg edema began gradually, over the past week, and he denies any associated trauma or recent illnesses. He also complained of urinary urgency and constipation, both of which began over the past week. He does not remember when he had his last bowel movement. He endorses subjective fevers over the past day , without any chills, diarrhea, dysuria, hematuria, nausea, vomiting, or diarrhea. He also complained of SOB, light headedness, dizziness, insomnia, and chest pain since his diagnosis in August. The chest pain is on the right side of his chest, 7/10 in intensity, described as a squeezing pain, constant in nature but varying in intensity, radiating to the posterior aspect of his right shoulder, with no recognizable aggravating or alleviating factors. He also complained of a productive cough with yellowish sputum for the past 5 months. He was recently discharged from [facility] on 01/08/19, he was admitted for post obstructive pneumonia and was treated with Zosyn, and discharged on a 1 week course of Augmentin. CT head ordered, not yet completed. Discussed with resident this morning, psych consult may be of benefit. Reviewed patient's MRI of the brain from December 2018 and did not indicate any metastasis or significant structural abnormalities. Continue monitoring mental status, frequent reorientation, remains confused. Possibility of due to being in hospital in unfamiliar environment is also feasible although I would expect more of a sundowning at nighttime and he remains confused during the day. Continue medical optimization.
[2019-01-31] MEDS ORDERED: PT OWN MED DRAWER 7, Y5N ONE (09:22)
[2019-01-31] MEDS: ENOXAPARIN NA (PORCINE) 40 MG/0.4 ML DISP.SYRIN SQ SCH (09:30)
[2019-01-31] MEDS: TAMSULOSIN HCL 0.4 MG CAP PO SCH ×2 (09:31→21:39)
[2019-01-31] MEDS: PANTOPRAZOLE 40 MG TABLET (FP) PO SCH (09:31)
[2019-01-31] MEDS: guaiFENesin/D-METHORPHAN HB 10 ML UNIT-DOSE CUPS PO PRN ×2 (09:31→21:38)
[2019-01-31] MEDS: METOPROLOL TARTRATE 25 MG TABLET (FP) PO SCH ×2 (09:34→21:39)
[2019-01-31] MEDS: FERROUS GLUCONATE 324 MG TAB (FP) PO SCH (09:34)
[2019-01-31] MEDS: LIDOCAINE 5% TOPICAL PATCH TP SCH (09:37)
[2019-01-31] MEDS: ACETAMINOPHEN 325 MG TABLET (FP) PO PRN (09:43)
[2019-01-31 10:39] LABS: ANISOCYTOSIS 0; MACROCYTOSIS 0; PLATELET ESTIMATE DECREASED
--- NOTE | 2019-01-31 10:44 | PN ---
Progress Note, Physician Chief Complaint: Events noted Dyspnea History of Present Illness: Patient was seen and examined. Awake. Chart was reviewed Complains of dyspnea and chest tightness - Current Medication List Current Medications: Active Medications Acetaminophen (Tylenol -) 650 mg PO Q6H PRN PRN Reason: FEVER Last Admin: 01/31/19 09:43 Dose: 650 mg Albuterol/Ipratropium (Duoneb -) 1 amp NEB Q6H PRN PRN Reason: SHORTNESS OF BREATH Last Admin: 01/30/19 20:40 Dose: 1 amp Budesonide/Formoterol Fumarate (Symbicort 80/4.5mcg -) 2 puff IH BID [facility] Last Admin: 01/30/19 21:49 Dose: 2 puff Docusate Sodium (Colace -) 300 mg PO HS [facility] Last Admin: 01/30/19 21:22 Dose: 300 mg Enoxaparin Sodium (Lovenox -) 40 mg SQ DAILY [facility] Last Admin: 01/31/19 09:30 Dose: 40 mg Ferrous Gluconate (Fergon -) 324 mg PO DAILY [facility] Last Admin: 01/31/19 09:34 Dose: 324 mg Gabapentin (Neurontin -) 300 mg PO BID PRN PRN Reason: PAIN Last Admin: 01/30/19 17:20 Dose: 300 mg Guaifenesin (Robitussin Dm -) 10 ml PO Q6H PRN PRN Reason: COUGH Last Admin: 01/31/19 09:31 Dose: 10 ml Sodium Chloride (Normal Saline -) 1,000 mls @ 75 mls/hr IV ASDIR [facility] Last Admin: 01/31/19 04:19 Dose: 75 mls/hr Lidocaine (Lidoderm Patch -) 1 patch TP DAILY [facility] Last Admin: 01/31/19 09:37 Dose: 1 patch Lorazepam (Ativan Injection -) 0.5 mg IM TID PRN PRN Reason: ANXIETY Last Admin: 01/30/19 03:23 Dose: 0.5 mg Methadone HCl (Dolophine -) 10 mg PO Q12H [facility] Last Admin: 01/31/19 00:41 Dose: 10 mg Methylprednisolone Sodium Succinate (Solu-Medrol -) 40 mg IVPUSH Q8H-IV [facility] Last Admin: 01/31/19 02:55 Dose: 40 mg Metoprolol Tartrate (Lopressor Injection -) 5 mg IVPUSH Q6H PRN PRN Reason: TACHYCARDIA Last Admin: 01/25/19 16:12 Dose: 5 mg Metoprolol Tartrate (Lopressor -) 50 mg PO BID [facility] Last Admin: 01/31/19 09:34 Dose: 50 mg Miscellaneous (Lidoderm Patch Removal) 1 each MC DAILY@2200 [facility] Last Admin: 01/30/19 22:42 Dose: 1 each Oxycodone HCl (Roxicodone -) 5 mg PO Q4H PRN PRN Reason: PAIN LEVEL 6-10 Last Admin: 01/30/19 21:21 Dose: 5 mg Pantoprazole Sodium (Protonix -) 40 mg PO DAILY [facility] Last Admin: 01/31/19 09:31 Dose: 40 mg Polyethylene Glycol (Miralax (For Daily Use) -) 17 gm PO BID [facility] Last Admin: 01/30/19 21:22 Dose: 17 gm Tamsulosin HCl (Flomax -) 0.4 mg PO BID [facility] Last Admin: 01/31/19 09:31 Dose: 0.4 mg - Objective Vital Signs: Vital Signs Temperature 100.8 F H 01/31/19 10:00 Pulse Rate 118 H 01/31/19 10:00 Respiratory Rate 18 01/31/19 10:00 Blood Pressure 142/75 01/31/19 10:00 O2 Sat by Pulse Oximetry (%) 95 01/30/19 21:00 Eyes: Yes: PERRL HENT: Yes: Atraumatic Neck: Yes: Supple Cardiovascular: Yes: Regular Rate and Rhythm, Tachycardia, S1, S2 Respiratory: Yes: Rhonchi, SOB Gastrointestinal: Yes: Normal Bowel Sounds, Soft. No: Tenderness Edema: No Labs: CBC, BMP 01/31/19 06:12 01/31/19 06:12 Problem List - Problems (1) PSVT (paroxysmal supraventricular tachycardia) Code(s): I47.1 - SUPRAVENTRICULAR TACHYCARDIA (2) Hyponatremia Code(s): E87.1 - HYPO-OSMOLALITY AND HYPONATREMIA (3) Generalized weakness Code(s): R53.1 - WEAKNESS (4) Anemia Code(s): D64.9 - ANEMIA, UNSPECIFIED Qualifiers: Anemia type: unspecified type Qualified Code(s): D64.9 - Anemia, unspecified (5) Lung cancer Code(s): C34.90 - MALIGNANT NEOPLASM OF UNSP PART OF UNSP BRONCHUS OR LUNG (6) Sepsis Code(s): A41.9 - SEPSIS, UNSPECIFIED ORGANISM Assessment/Plan 1. PSVT s/p cardioversion to sinus tachycardia 2. Squamous cell CA of lung s/p chemotherapy and radiation therapy 3. History of pneumonia 4. Anemia s/p PRBC transfusion 5. Generalized weakness due to above 6. Organic brain syndrome 7. Hyponatremia 8. Abnormal TFT suggests hyperthyroid state PLAN: 1. Continue Metoprolol as tolerated 2. Continue to monitor HR 3. Transfuse PRBC as needed and follow CBC 4. Monitor NA and correct 5. DVT prophylaxis 6. IV steroids, bronchodilator and O2 Further plans are to follow Hugo Boyd MD
[2019-01-31] MEDS: POLYETHYLENE GLYCOL 3350 119 GM BTL PO SCH ×2 (11:47→21:39)
[2019-01-31] MEDS: BUDESONIDE/FORMETEROL FUMARATE 80/4.5 mcg INHALER IH SCH ×2 (11:50→21:38)
--- NOTE | 2019-01-31 12:06 | PN ---
Progress Note, Physician History of Present Illness: PULMONARY AWAKE,CONFUSED,-C/O SOB - Current Medication List Current Medications: Active Medications Acetaminophen (Tylenol -) 650 mg PO Q6H PRN PRN Reason: FEVER Last Admin: 01/31/19 09:43 Dose: 650 mg Albuterol/Ipratropium (Duoneb -) 1 amp NEB Q6H PRN PRN Reason: SHORTNESS OF BREATH Last Admin: 01/30/19 20:40 Dose: 1 amp Budesonide/Formoterol Fumarate (Symbicort 80/4.5mcg -) 2 puff IH BID [facility] Last Admin: 01/31/19 11:50 Dose: 2 puff Docusate Sodium (Colace -) 300 mg PO HS [facility] Last Admin: 01/30/19 21:22 Dose: 300 mg Enoxaparin Sodium (Lovenox -) 40 mg SQ DAILY [facility] Last Admin: 01/31/19 09:30 Dose: 40 mg Ferrous Gluconate (Fergon -) 324 mg PO DAILY [facility] Last Admin: 01/31/19 09:34 Dose: 324 mg Gabapentin (Neurontin -) 300 mg PO BID PRN PRN Reason: PAIN Last Admin: 01/30/19 17:20 Dose: 300 mg Guaifenesin (Robitussin Dm -) 10 ml PO Q6H PRN PRN Reason: COUGH Last Admin: 01/31/19 09:31 Dose: 10 ml Sodium Chloride (Normal Saline -) 1,000 mls @ 75 mls/hr IV ASDIR [facility] Last Admin: 01/31/19 04:19 Dose: 75 mls/hr Lidocaine (Lidoderm Patch -) 1 patch TP DAILY [facility] Last Admin: 01/31/19 09:37 Dose: 1 patch Lorazepam (Ativan Injection -) 0.5 mg IM TID PRN PRN Reason: ANXIETY Last Admin: 01/30/19 03:23 Dose: 0.5 mg Methadone HCl (Dolophine -) 10 mg PO Q12H [facility] Last Admin: 01/31/19 11:48 Dose: 10 mg Methylprednisolone Sodium Succinate (Solu-Medrol -) 40 mg IVPUSH Q8H-IV [facility] Last Admin: 01/31/19 02:55 Dose: 40 mg Metoprolol Tartrate (Lopressor Injection -) 5 mg IVPUSH Q6H PRN PRN Reason: TACHYCARDIA Last Admin: 01/25/19 16:12 Dose: 5 mg Metoprolol Tartrate (Lopressor -) 50 mg PO BID [facility] Last Admin: 01/31/19 09:34 Dose: 50 mg Miscellaneous (Lidoderm Patch Removal) 1 each MC DAILY@2200 [facility] Last Admin: 01/30/19 22:42 Dose: 1 each Oxycodone HCl (Roxicodone -) 5 mg PO Q4H PRN PRN Reason: PAIN LEVEL 6-10 Last Admin: 01/30/19 21:21 Dose: 5 mg Pantoprazole Sodium (Protonix -) 40 mg PO DAILY [facility] Last Admin: 01/31/19 09:31 Dose: 40 mg Polyethylene Glycol (Miralax (For Daily Use) -) 17 gm PO BID [facility] Last Admin: 01/31/19 11:47 Dose: 17 gm Tamsulosin HCl (Flomax -) 0.4 mg PO BID [facility] Last Admin: 01/31/19 09:31 Dose: 0.4 mg - Objective Vital Signs: Vital Signs Temperature 98.5 F 01/31/19 11:18 Pulse Rate 118 H 01/31/19 10:00 Respiratory Rate 18 01/31/19 10:00 Blood Pressure 142/75 01/31/19 10:00 O2 Sat by Pulse Oximetry (%) 95 01/30/19 21:00 Constitutional: Yes: Calm, Thin Eyes: Yes: WNL HENT: Yes: WNL Neck: Yes: WNL Cardiovascular: Yes: Regular Rate and Rhythm, S1, S2 Respiratory: Yes: Rhonchi (FEW RHONCHI) Gastrointestinal: Yes: Normal Bowel Sounds, Soft Extremities: Yes: WNL Edema: No Labs: CBC, BMP 01/31/19 06:12 01/31/19 06:12 Problem List - Problems (1) Agitated Code(s): R45.1 - RESTLESSNESS AND AGITATION (2) Anemia Code(s): D64.9 - ANEMIA, UNSPECIFIED Qualifiers: Anemia type: unspecified type Qualified Code(s): D64.9 - Anemia, unspecified (3) COPD exacerbation Code(s): J44.1 - CHRONIC OBSTRUCTIVE PULMONARY DISEASE W (ACUTE) EXACERBATION (4) Dysrhythmia Code(s): I49.9 - CARDIAC ARRHYTHMIA, UNSPECIFIED (5) Lung cancer Code(s): C34.90 - MALIGNANT NEOPLASM OF UNSP PART OF UNSP BRONCHUS OR LUNG (6) PSVT (paroxysmal supraventricular tachycardia) Code(s): I47.1 - SUPRAVENTRICULAR TACHYCARDIA Assessment/Plan ASSESSMENT AND PLAN: SVT s/p DCCV Advanced NSCLC (Squamous cell) s/p chemo Low clinical impression of PNA Chronic Pain/Methadone Maintenance Anemia Smoker - rate control - monitor H/H - Normal transfusion threshold - DVT prophylaxis - medrol - DR EDWARDS
[2019-01-31 14:05] LABS: ALBUMIN 2.4 g/dl (3.4-5.0); BILIRUBIN,DIRECT 0.3 mg/dL (0.0-0.2); BILIRUBIN,TOTAL 0.6 mg/dL (0.2-1); TOT PROT 6.5 g/dl (6.4-8.2)
[2019-01-31] MEDS: oxyCODONE HCL 5 MG TABLET PO PRN (14:43)
[2019-01-31] MEDS: diphenhydrAMINE HCL 25 MG CAPSULE (FP) PO PRN ×2 (14:43→21:39)
[2019-01-31] MEDS ORDERED: predniSONE 20 MG TABLET (UD) PO ONE (15:13)
--- NOTE | 2019-01-31 15:26 | PN ---
Teaching Attending Note Name of Resident: Sherry Kapadia ATTENDING PHYSICIAN STATEMENT I saw and evaluated the patient. I reviewed the resident's note and discussed the case with the resident. I agree with the resident's findings and plan as documented. SUBJECTIVE: Disoriented. Complains of generalized itchiness. OBJECTIVE: Fever - Tmax 100.8, hemodynamically Stable. Last Vital Signs Temp Pulse Resp BP Pulse Ox 98.5 F 118 H 18 142/75 95 01/31/19 11:18 01/31/19 10:00 01/31/19 10:00 01/31/19 10:00 01/31/19 09:00 HEAD: Atraumaic Normocephalic. HEART: S1S2, tachycardic LUNGS: no wheeze, good air entry bilaterally ABDOMEN: Soft, non-tender, non-distended, normal BS EXTREMITIES: Mild edema, no calf tenderness. NEURO: AAO x 1. Tone/Power normal all 4 extremities. Current Medications Generic Name Dose Route Start Last Admin Trade Name Freq PRN Reason Stop Dose Admin Acetaminophen 650 mg 01/27/19 15:22 01/31/19 09:43 Tylenol - PO 650 mg Q6H PRN Administration FEVER Albuterol/Ipratropium 1 amp 01/27/19 08:27 01/30/19 20:40 Duoneb - NEB 1 amp Q6H PRN Administration SHORTNESS OF BREATH Budesonide/Formoterol Fumarate 2 puff 01/28/19 10:00 01/31/19 11:50 Symbicort 80/4.5mcg - IH 2 puff BID [facility] Administration Diphenhydramine HCl 25 mg 01/31/19 12:25 01/31/19 14:43 Benadryl - PO 25 mg Q6H PRN Administration FOR ITCHING Docusate Sodium 300 mg 01/24/19 22:00 01/30/19 21:22 Colace - PO 300 mg HS [facility] Administration Enoxaparin Sodium 40 mg 01/25/19 10:00 01/31/19 09:30 Lovenox - SQ 40 mg DAILY [facility] Administration Ferrous Gluconate 324 mg 01/28/19 10:00 01/31/19 09:34 Fergon - PO 324 mg DAILY [facility] Administration Gabapentin 300 mg 01/24/19 17:53 01/30/19 17:20 Neurontin - PO 300 mg BID PRN Administration PAIN Guaifenesin 10 ml 01/29/19 14:40 01/31/19 09:31 Robitussin Dm - PO 10 ml Q6H PRN Administration COUGH Sodium Chloride 1,000 mls @ 75 mls/hr 01/24/19 17:53 01/31/19 04:19 Normal Saline - IV 75 mls/hr ASDIR [facility] Administration Lidocaine 1 patch 01/27/19 12:30 01/31/19 09:37 Lidoderm Patch - TP 1 patch DAILY [facility] Administration Lorazepam 0.5 mg 01/28/19 09:48 01/30/19 03:23 Ativan Injection - IM 0.5 mg TID PRN Administration ANXIETY Methadone HCl 10 mg 01/25/19 00:15 01/31/19 11:48 Dolophine - PO 10 mg Q12H [facility] Administration Metoprolol Tartrate 5 mg 01/24/19 16:15 01/25/19 16:12 Lopressor Injection - IVPUSH 5 mg Q6H PRN Administration TACHYCARDIA Metoprolol Tartrate 50 mg 01/27/19 11:01 01/31/19 09:34 Lopressor - PO 50 mg BID [facility] Administration Miscellaneous 1 each 01/27/19 23:00 01/30/19 22:42 Lidoderm Patch Removal MC 1 each DAILY@2200 [facility] Administration Oxycodone HCl 5 mg 01/29/19 18:14 01/31/19 14:43 Roxicodone - PO 5 mg Q4H PRN Administration PAIN LEVEL 6-10 Pantoprazole Sodium 40 mg 01/28/19 10:00 01/31/19 09:31 Protonix - PO 40 mg DAILY [facility] Administration Polyethylene Glycol 17 gm 01/24/19 22:00 01/31/19 11:47 Miralax (For Daily Use) - PO 17 gm BID [facility] Administration Prednisone 60 mg 01/31/19 15:13 Deltasone - PO 01/31/19 15:14 ONCE ONE Prednisone 40 mg 02/01/19 10:00 Deltasone - PO DAILY [facility] Tamsulosin HCl 0.4 mg 01/28/19 10:00 01/31/19 09:31 Flomax - PO 0.4 mg BID [facility] Administration Home Medications Medication Instructions Recorded Docusate Sodium [Colace] 100 mg PO TID 01/05/19 Gabapentin 300 mg PO Q8H PRN 01/05/19 Oxycodone HCl 5 mg PO Q4H PRN 01/05/19 Pantoprazole Sodium [Protonix] 40 mg PO DAILY 01/05/19 Tamsulosin HCl 0.4 mg PO BID 01/05/19 Cannabidiol (Cbd) Extract 0.2 ml PO BID 01/06/19 Ferrous Gluconate [Fergon -] 324 mg PO DAILY #30 tab 01/08/19 Methadone [Dolophine -] 10 mg PO Q12H 01/08/19 Azithromycin [Zithromax 250mg 250 mg PO DAILY 01/25/19 Tablets -] Guaifenesin Dm [Robitussin Dm -] 10 ml PO Q6H PRN 01/25/19 Salmeterol/Fluticasone [Advair 250 mcg PO PRN 01/25/19 100Mcg/50Mcg -] ASSESSMENT AND PLAN: 68 year old man with a history of Squamous cell lung cancer, bowel resection secondary to obstruction, tobacco use, alcohol use, chronic pain syndrome, opioid dependence on methadone, BPH, sent by Dr. Aviles to the ED for weakness, leg edema, and anemia. 1. Sepsis, source unclear. T 100.8. HR 118 Leukocytosis (confounded by IV steroid use) Initial septic screen negative Will repeat septic screen and consult ID especially given altered mental status. 2. Acute Encephalopathy - Metabolic versus Toxic On Methadone and Oxycodone Pain management consulted for rationalization of pain medication regimen. Febrile - will consult ID for further guidance. MRI Brain 12/[address] Brain 01/06 - negative for significant acute findings Neurology following. 3. Paroxysmal supraventricular tachycardia - resolved s/p Adenosine, s/p Cardioversion - Continue Lopressor. 4. Acute Exacerbation of COPD - improving. Transition IV solumedrol to oral. Duonebs. 5. Squamous cell Lung Cancer - s/p weekly carbo/taxol, s/p 1 cycle pembrolizumab - further management as per Oncology. 6. Anemia secondary to chronic disease/iron deficiency - Hematology/Oncology following - Continue ferrous gluconate 7. Chronic pain syndrome - Continue Methadone, Lidoderm patch, Neurontin, oxycodone as needed pending Pain management evaluation. 8. BPH - Continue Flomax DVT Px - Lovenox SQ
--- NOTE | 2019-01-31 15:28 | PN ---
Progress Note (short form) - Note Progress Note: Hematology and oncology follow up note Subjective: The patient was seen and examined sitting sitting up in bed eating lunch. Patient states that his lower half is wet secondary to sweating and requests a towel. ROS: Negative except as noted above Objective: Vital Signs Temperature 97.7 F 01/31/19 14:20 Pulse Rate 75 01/31/19 14:20 Respiratory Rate 18 01/31/19 14:20 Blood Pressure 134/68 01/31/19 14:20 O2 Sat by Pulse Oximetry (%) 95 01/31/19 09:00 PE: Gen: Patient sitting up in bed. He is more talkative and alert today. Able to speak in full sentences. Cardio: regular rate and rhythm. S1, S2 heard. No murmurs, gallops, rubs Pulm: Lungs CTA b/l down to the bases. Abdomen: Soft, nontender, nondistended. Bowel sounds heard. CBC, BMP 01/31/19 06:12 01/31/19 06:12 Assessment & plan: The patient is a 68 yo m w/ PMH Rt. lung squamous cell carcinoma s/p weekly carbo/taxol, s/p 1 cycle pembrolizumab who was admitted to telemetry for SVT, anemia, AMS. # Confusion -possibly 2/2 combination of pain meds and steroids -neuro consulted, recommends CT head, psych consult. Patient unable to lie flat and still to tolerate this study. -patient remains A&Ox3 on my exam #anemia -Hb stable at 9.4 today. -monitor CBC -maintain normal transfusion thresholds. #Chronic pain 2/2 right lung squamous cell carcinoma -pain management consulted -currently on home regimen of methadone/oxycodone -patient denies pain on interview #Right lung squamous cell carcinoma -on weekly carbo/taxol -s/p 1 cycle pembrolizumab #leukocytosis -likely 2/2 steroid use
[2019-01-31] MEDS ORDERED: SODIUM CHLORIDE 500 ML IV STA (15:34)
--- NOTE | 2019-01-31 16:22 | PN ---
Physical Exam: SUBJECTIVE: Patient seen and examined. He reports having bilateral leg pain and back pain. Pt reports generalized itching. OBJECTIVE: Vital Signs Period Temp Pulse Resp BP Sys/Seo Pulse Ox Last 24 Hr 97.7 F-100.8 F 75-118 18-18 130-162/68-90 95-95 GENERAL: The patient is awake, alert, and oriented to person and time, in no acute distress. HEAD: Normal with no signs of trauma. EYES: PERRL, extraocular movements intact, sclera anicteric, conjunctiva clear. No ptosis. ENT: Ears normal, nares patent, moist mucous membranes. NECK: Trachea midline, full range of motion, supple. LUNGS: Expiratory wheezing bilaterally, no accessory muscle use. HEART: Regular rate and rhythm, S1, S2 without murmur, rub or gallop. ABDOMEN: Soft, nontender, nondistended, normoactive bowel sounds EXTREMITIES: 2+ pulses, warm, well-perfused, no edema. NEUROLOGICAL: Cranial nerves II through XII grossly intact. Normal speech, gait not observed. PSYCH: Normal mood, normal affect. SKIN: Warm, dry, normal turgor, no rashes or lesions noted on trunk or extremities Laboratory Results - last 24 hr 01/31/19 01/31/19 06:12 06:12 WBC 16.6 H RBC 3.20 L Hgb 9.4 L Hct 29.1 L MCV 90.8 MCH 29.3 MCHC 32.2 RDW 16.6 H Plt Count 139 MPV 7.8 Absolute Neuts (auto) 16.0 H Neutrophils % 96.1 H Neutrophils % (Manual) 91.9 H Band Neutrophils % 4.1 Lymphocytes % 0.9 L Lymphocytes % (Manual) 1.0 L Monocytes % 2.5 L Monocytes % (Manual) 3 L Eosinophils % 0.0 Eosinophils % (Manual) 0.0 Basophils % 0.5 Basophils % (Manual) 0.0 Myelocytes % (Man) 0 Promyelocytes % (Man) 0 Blast Cells % (Manual) 0 Nucleated RBC % 0 Metamyelocytes 0 Hypochromia 0 Platelet Estimate Decreased Polychromasia 0 Poikilocytosis 0 Anisocytosis 0 Microcytosis 0 Macrocytosis 0 Sodium 133 L Potassium 3.6 Chloride 95 L Carbon Dioxide 30 Anion Gap 9 BUN 11.4 Creatinine 0.4 L Est GFR (CKD-EPI)AfAm 141.45 Est GFR (CKD-EPI)NonAf 122.04 Random Glucose 141 H Calcium 8.8 Total Bilirubin 0.6 Direct Bilirubin 0.3 H AST 46 H ALT 60 Alkaline Phosphatase 209 H Total Protein 6.5 Albumin 2.4 L Active Medications Generic Name Dose Route Start Last Admin Trade Name Freq PRN Reason Stop Dose Admin Acetaminophen 650 mg 01/27/19 15:22 01/31/19 09:43 Tylenol - PO 650 mg Q6H PRN Administration FEVER Albuterol/Ipratropium 1 amp 01/27/19 08:27 01/30/19 20:40 Duoneb - NEB 1 amp Q6H PRN Administration SHORTNESS OF BREATH Budesonide/Formoterol Fumarate 2 puff 01/28/19 10:00 01/31/19 11:50 Symbicort 80/4.5mcg - IH 2 puff BID SHIRA Administration Diphenhydramine HCl 25 mg 01/31/19 12:25 01/31/19 14:43 Benadryl - PO 25 mg Q6H PRN Administration FOR ITCHING Docusate Sodium 300 mg 01/24/19 22:00 01/30/19 21:22 Colace - PO 300 mg HS SHIRA Administration Enoxaparin Sodium 40 mg 01/25/19 10:00 01/31/19 09:30 Lovenox - SQ 40 mg DAILY SHIRA Administration Ferrous Gluconate 324 mg 01/28/19 10:00 01/31/19 09:34 Fergon - PO 324 mg DAILY SHIRA Administration Gabapentin 300 mg 01/24/19 17:53 01/30/19 17:20 Neurontin - PO 300 mg BID PRN Administration PAIN Guaifenesin 10 ml 01/29/19 14:40 01/31/19 09:31 Robitussin Dm - PO 10 ml Q6H PRN Administration COUGH Sodium Chloride 1,000 mls @ 75 mls/hr 01/24/19 17:53 01/31/19 04:19 Normal Saline - IV 75 mls/hr ASDIR SHIRA Administration Sodium Chloride 500 mls @ 500 mls/hr 01/31/19 15:34 01/31/19 15:46 Normal Saline - IV 01/31/19 16:33 500 mls/hr ASDIR STA Administration Lidocaine 1 patch 01/27/19 12:30 01/31/19 09:37 Lidoderm Patch - TP 1 patch DAILY SHIRA Administration Lorazepam 0.5 mg 01/28/19 09:48 01/30/19 03:23 Ativan Injection - IM 0.5 mg TID PRN Administration ANXIETY Methadone HCl 10 mg 01/25/19 00:15 01/31/19 11:48 Dolophine - PO 10 mg Q12H SHIRA Administration Metoprolol Tartrate 5 mg 01/24/19 16:15 01/25/19 16:12 Lopressor Injection - IVPUSH 5 mg Q6H PRN Administration TACHYCARDIA Metoprolol Tartrate 50 mg 01/27/19 11:01 01/31/19 09:34 Lopressor - PO 50 mg BID SHIRA Administration Miscellaneous 1 each 01/27/19 23:00 01/30/19 22:42 Lidoderm Patch Removal MC 1 each DAILY@2200 SHIRA Administration Oxycodone HCl 5 mg 01/29/19 18:14 01/31/19 14:43 Roxicodone - PO 5 mg Q4H PRN Administration PAIN LEVEL 6-10 Pantoprazole Sodium 40 mg 01/28/19 10:00 01/31/19 09:31 Protonix - PO 40 mg DAILY SHIRA Administration Polyethylene Glycol 17 gm 01/24/19 22:00 01/31/19 11:47 Miralax (For Daily Use) - PO 17 gm BID SHIRA Administration Prednisone 40 mg 02/01/19 10:00 Deltasone - PO DAILY SHIRA Tamsulosin HCl 0.4 mg 01/28/19 10:00 01/31/19 09:31 Flomax - PO 0.4 mg BID SHIRA Administration ASSESSMENT/PLAN: 68 y/o male with right squamous cell carcinoma, SBO s/p bowel resection, polysubstance use, and chronic pain syndrome on methadone sent to ED for symptomatic anemia. Pt is known to Dr. Aviles and was experiencing SOB, tiredness , and lethargy, with office Hb 7.4 requiring transfusion to maintain specific parameters. Pt received PRBC in ED. Pt entered SVT and given adenosine, lopressor, and 50 J cardioversion. Pt transferred monitored in ICU and eventually sent to telemetry. #sepsis 2/2 possible pulmonary embolism vs possible obstructive pneumonia CXR: Prominent mediastinum, RUL cavitary mass, right early infiltrate, increasing atelectatic changes. POCUS/doppler negative. Afebrile now. Tmax 100.8 this morning. Given 500mL bolus. -U/A, urine culture, blood culture ordered -ID- order new urine and blood cultures, continue to monitor -Cultures NEG (urine, blood, sputum) -TSH WNL -Lopressor 50mg BID -Lopressor 5mg push PRN tachycardia >120 #acute toxic encephalopathy, medication-induced vs metabolic Oxycodone reduced to 5mg. ABG was pH 7.50. Recent MRI that was negative for mets or acute pathology and low concern for CVA at this time -riya vest PRN agitation as first line #intermittent SVT -Echo- trace TR, EF 60-65% -TSH normal, free T4 slightly elevated -Cards consulted: Metoprolol 25 bid. #anemia of chronic disease Hemodynamically stable with no signs of bleeding. Hb 8.2. s/p 1 unit PRBC. #squamous cell carcinoma MRI brain 12/13/18 showed no mets. -primary heme/onc consulted (Dr. Aviles) -oxycodone 5mg, lidoderm patch, methadone 10mg BID, gabapentin 300mg BID PRN, tylenol -Symbicort -Solumedrol 40mg Q8H -Robitussin PRN cough #transaminitis Alk phos elevated but trending down. Unknown if have bone involvement from malignancy. Elevated GGT 189. -continue to monitor FEN NS 75mL/hr monitor electrolytes regular diet DVT Ppx Lovenox GI Ppx Protonix Dispo tele Visit type - Emergency Visit Emergency Visit: Yes ED Registration Date: 01/23/19 Care time: The patient presented to the Emergency Department on the above date and was hospitalized for further evaluation of their emergent condition. - New Patient This patient is new to me today: No - Critical Care Critical Care patient: No - Discharge Referral Referred to [facility] No ATTENDING PHYSICIAN STATEMENT I saw and evaluated the patient. I reviewed the resident's note and discussed the case with the resident. I agree with the resident's findings and plan as documented. SUBJECTIVE: OBJECTIVE: ASSESSMENT AND PLAN:
--- NOTE | 2019-01-31 17:20 | PN ---
Progress Note, Physician History of Present Illness: TEMP NOTED 100.8 CONFUSED SEATED IN BED WITH FIDE + COUGH REPEAT C/S ORDERED CXR NO NEW INFILTRATE - Current Medication List Current Medications: Active Medications Acetaminophen (Tylenol -) 650 mg PO Q6H PRN PRN Reason: FEVER Last Admin: 01/31/19 09:43 Dose: 650 mg Albuterol/Ipratropium (Duoneb -) 1 amp NEB Q6H PRN PRN Reason: SHORTNESS OF BREATH Last Admin: 01/30/19 20:40 Dose: 1 amp Budesonide/Formoterol Fumarate (Symbicort 80/4.5mcg -) 2 puff IH BID SHIRA Last Admin: 01/31/19 11:50 Dose: 2 puff Diphenhydramine HCl (Benadryl -) 25 mg PO Q6H PRN PRN Reason: FOR ITCHING Last Admin: 01/31/19 14:43 Dose: 25 mg Docusate Sodium (Colace -) 300 mg PO HS [facility] Last Admin: 01/30/19 21:22 Dose: 300 mg Enoxaparin Sodium (Lovenox -) 40 mg SQ DAILY [facility] Last Admin: 01/31/19 09:30 Dose: 40 mg Ferrous Gluconate (Fergon -) 324 mg PO DAILY [facility] Last Admin: 01/31/19 09:34 Dose: 324 mg Gabapentin (Neurontin -) 300 mg PO BID PRN PRN Reason: PAIN Last Admin: 01/30/19 17:20 Dose: 300 mg Guaifenesin (Robitussin Dm -) 10 ml PO Q6H PRN PRN Reason: COUGH Last Admin: 01/31/19 09:31 Dose: 10 ml Sodium Chloride (Normal Saline -) 1,000 mls @ 75 mls/hr IV ASDIR [facility] Last Admin: 01/31/19 04:19 Dose: 75 mls/hr Lidocaine (Lidoderm Patch -) 1 patch TP DAILY [facility] Last Admin: 01/31/19 09:37 Dose: 1 patch Lorazepam (Ativan Injection -) 0.5 mg IM TID PRN PRN Reason: ANXIETY Last Admin: 01/30/19 03:23 Dose: 0.5 mg Methadone HCl (Dolophine -) 10 mg PO Q12H [facility] Last Admin: 01/31/19 11:48 Dose: 10 mg Metoprolol Tartrate (Lopressor Injection -) 5 mg IVPUSH Q6H PRN PRN Reason: TACHYCARDIA Last Admin: 01/25/19 16:12 Dose: 5 mg Metoprolol Tartrate (Lopressor -) 50 mg PO BID [facility] Last Admin: 01/31/19 09:34 Dose: 50 mg Miscellaneous (Lidoderm Patch Removal) 1 each MC DAILY@2200 [facility] Last Admin: 01/30/19 22:42 Dose: 1 each Oxycodone HCl (Roxicodone -) 5 mg PO Q4H PRN PRN Reason: PAIN LEVEL 6-10 Last Admin: 01/31/19 14:43 Dose: 5 mg Pantoprazole Sodium (Protonix -) 40 mg PO DAILY [facility] Last Admin: 01/31/19 09:31 Dose: 40 mg Polyethylene Glycol (Miralax (For Daily Use) -) 17 gm PO BID [facility] Last Admin: 01/31/19 11:47 Dose: 17 gm Prednisone (Deltasone -) 40 mg PO DAILY [facility] Tamsulosin HCl (Flomax -) 0.4 mg PO BID [facility] Last Admin: 01/31/19 09:31 Dose: 0.4 mg - Objective Vital Signs: Vital Signs Temperature 97.7 F 01/31/19 14:20 Pulse Rate 75 01/31/19 14:20 Respiratory Rate 18 01/31/19 14:20 Blood Pressure 134/68 01/31/19 14:20 O2 Sat by Pulse Oximetry (%) 95 01/31/19 09:00 Constitutional: Yes: No Distress Cardiovascular: Yes: Regular Rate and Rhythm, S1, S2 Respiratory: Yes: Rhonchi Gastrointestinal: Yes: Normal Bowel Sounds, Soft. No: Tenderness Extremities: No: Calf Tenderness Edema: No Labs: CBC, BMP 01/31/19 06:12 01/31/19 06:12 Assessment/Plan FEVER ? PNEUMONIA ? TUMOR FEVER LUNG CA ALTERED MENTAL STATUS REPEAT CULTURES REPEAT CT HEAD OBSERVE OFF ANTIBIOTICS
[2019-01-31 17:33] LABS: URINE APPEARANCE CLEAR; URINE BILIRUBIN NEGATIVE (NEGATIVE); URINE COLOR YELLOW; URINE GLUCOSE (UA) NEGATIVE (NEGATIVE); URINE KETONE NEGATIVE (NEGATIVE); URINE LEUK ESTERASE NEGATIVE (NEGATIVE); URINE NITRITE NEGATIVE (NEGATIVE); URINE PROTEIN NEGATIVE (NEGATIVE)
--- NOTE | 2019-01-31 19:51 | PN ---
Progress Note (short form) - Note Progress Note: Patient seen and examined Remains sitting with head bent and feet crossed. Complains of pain Poseyed because of confusion All prior imaging of brain - negative--suggesting toxic metabolic etiology. Has abnormalities of LFT's Will order sono of liver If liver mets- would support possible tumor fever and trial of naprosyn. ID noted Last Vital Signs Temp Pulse Resp BP Pulse Ox 98.2 F 103 H 18 142/82 95 01/31/19 18:00 01/31/19 18:00 01/31/19 18:00 01/31/19 18:00 01/31/19 09:00 HEENT: CARLITOS, EOM Intact Cor: RSR, No murmurs, No gallops Lungs: diminished breath sounds Abd: Soft, Normal bowel sounds, No organomegaly Ext:No significant edema Skin: No rashes, Integument intact CBC, BMP 01/31/19 06:12 01/31/19 06:12 Current Medications Generic Name Dose Route Start Last Admin Trade Name Freq PRN Reason Stop Dose Admin Acetaminophen 650 mg 01/27/19 15:22 01/31/19 09:43 Tylenol - PO 650 mg Q6H PRN Administration FEVER Albuterol/Ipratropium 1 amp 01/27/19 08:27 01/30/19 20:40 Duoneb - NEB 1 amp Q6H PRN Administration SHORTNESS OF BREATH Budesonide/Formoterol Fumarate 2 puff 01/28/19 10:00 01/31/19 11:50 Symbicort 80/4.5mcg - IH 2 puff BID SHIRA Administration Diphenhydramine HCl 25 mg 01/31/19 12:25 01/31/19 14:43 Benadryl - PO 25 mg Q6H PRN Administration FOR ITCHING Docusate Sodium 300 mg 01/24/19 22:00 01/30/19 21:22 Colace - PO 300 mg HS SHIRA Administration Enoxaparin Sodium 40 mg 01/25/19 10:00 01/31/19 09:30 Lovenox - SQ 40 mg DAILY SHIRA Administration Ferrous Gluconate 324 mg 01/28/19 10:00 01/31/19 09:34 Fergon - PO 324 mg DAILY SHIRA Administration Gabapentin 300 mg 01/24/19 17:53 01/30/19 17:20 Neurontin - PO 300 mg BID PRN Administration PAIN Guaifenesin 10 ml 01/29/19 14:40 01/31/19 09:31 Robitussin Dm - PO 10 ml Q6H PRN Administration COUGH Sodium Chloride 1,000 mls @ 75 mls/hr 01/24/19 17:53 01/31/19 04:19 Normal Saline - IV 75 mls/hr ASDIR SHIRA Administration Lidocaine 1 patch 01/27/19 12:30 01/31/19 09:37 Lidoderm Patch - TP 1 patch DAILY SHIRA Administration Lorazepam 0.5 mg 01/28/19 09:48 01/30/19 03:23 Ativan Injection - IM 0.5 mg TID PRN Administration ANXIETY Methadone HCl 10 mg 01/25/19 00:15 01/31/19 11:48 Dolophine - PO 10 mg Q12H SHIRA Administration Metoprolol Tartrate 5 mg 01/24/19 16:15 01/25/19 16:12 Lopressor Injection - IVPUSH 5 mg Q6H PRN Administration TACHYCARDIA Metoprolol Tartrate 50 mg 01/27/19 11:01 01/31/19 09:34 Lopressor - PO 50 mg BID SHIRA Administration Miscellaneous 1 each 01/27/19 23:00 01/30/19 22:42 Lidoderm Patch Removal MC 1 each DAILY@2200 SHIRA Administration Oxycodone HCl 5 mg 01/29/19 18:14 01/31/19 14:43 Roxicodone - PO 5 mg Q4H PRN Administration PAIN LEVEL 6-10 Pantoprazole Sodium 40 mg 01/28/19 10:00 01/31/19 09:31 Protonix - PO 40 mg DAILY SHIRA Administration Polyethylene Glycol 17 gm 01/24/19 22:00 01/31/19 11:47 Miralax (For Daily Use) - PO 17 gm BID SHIRA Administration Prednisone 40 mg 02/01/19 10:00 Deltasone - PO DAILY SHIRA Tamsulosin HCl 0.4 mg 01/28/19 10:00 01/31/19 09:31 Flomax - PO 0.4 mg BID SHIRA Administration Impression: Lung ca Pain management Fevers Confusion Abnormal LFT's Plan: Sono of liver GGTP MRI of brain NH+3 Pain management
[2019-01-31] MEDS: ALBUTEROL SO4 2.5/IPRATROPIUM 0.5 INH SOL 3 ML VIAL.NEB. NEB PRN (20:29)
[2019-01-31] MEDS: DOCUSATE SODIUM 100 MG CAPSULE (FP) PO SCH (21:39)
[2019-01-31] MEDS: LIDOCAINE PATCH REMOVAL MC SCH (21:43)
[2019-01-31] MEDS: LORazepam 2 MG/ML SDV VIAL IM PRN (23:24)
[2019-02-01 06:13] LABS: BASO % 0.6 % (0-2.0); HEMATOCRIT 27.9 % (35.4-49); HEMOGLOBIN 9.1 GM/dL (11.7-16.9); LYMPH % 2.1 % (8-40); MCH 29.4 pg (25.7-33.7); MCHC 32.5 g/dl (32.0-35.9); MEAN CELL VOLUME 90.5 fl (80-96); MEAN PLT VOLUME 7.8 fl (7.5-11.1); MONO % 3.3 % (3.8-10.2); PLATELET COUNT 118 K/MM3 (134-434); RBC 3.09 M/mm3 (4.00-5.60); RDW 16.8 % (11.9-15.9); WHITE BLOOD COUNT 13.9 K/mm3 (4.0-10.0)
[2019-02-01 06:44] LABS: ALBUMIN 2.2 g/dl (3.4-5.0); BILIRUBIN,TOTAL 0.6 mg/dL (0.2-1); BLOOD UREA NITROGEN 9.6 mg/dL (7-18); CALCIUM 8.3 mg/dL (8.5-10.1); CREATININE 0.4 mg/dL (0.55-1.3); POTASSIUM 3.9 mmol/L (3.5-5.1); TOT PROT 6.2 g/dl (6.4-8.2)
[2019-02-01] MEDS: LORazepam 2 MG/ML SDV VIAL IM PRN (08:36)
--- NOTE | 2019-02-01 08:36 | PN ---
Progress Note (short form) - Note Progress Note: Neurology HISTORY OF PRESENT ILLNESS: This is a 68 year old male with PMH significant for RUL squamous cell CA, diagnosed in August. He presented to the ER from Dr. Aviles's office on day of admission, after he was found to be anemic (H&H 7.9/25.0), and complains of B/L leg edema and generalized weakness over the past 1 week. He stated that he was visiting Dr. Aviles for a regular follow up appointment for his CA, and was due to start new medication (as per Dr. Aviles's note on 01/10, he has completed his course of Carboplatin and Paclitaxel, due to start Keytruda). He was found to be anemic and was referred to [facility] for a blood transfusion. He stated that the leg edema began gradually, over the past week, and he denies any associated trauma or recent illnesses. He also complained of urinary urgency and constipation, both of which began over the past week. He does not remember when he had his last bowel movement. He endorsed subjective fevers over the past day , without any chills, diarrhea, dysuria, hematuria, nausea, vomiting, or diarrhea. He also complained of SOB, light headedness, dizziness, insomnia, and chest pain since his diagnosis in August. The chest pain is on the right side of his chest, 7/10 in intensity, described as a squeezing pain, constant in nature but varying in intensity, radiating to the posterior aspect of his right shoulder, with no recognizable aggravating or alleviating factors. He also complained of a productive cough with yellowish sputum for the past 5 months. He was recently discharged from [facility] on 01/08/19, he was admitted for post obstructive pneumonia and was treated with Zosyn, and discharged on a 1 week course of Augmentin. CT head had been ordered, modified to MRI brain, unclear if patient will be able to tolerate. May require sedative which can further consultation mental status. Reviewed patient's MRI of the brain from December 2018 and did not indicate any metastasis or significant structural abnormalities. patient remains confused this morning and may benefit from psychiatric consultation.. Discussed with nurse at bedside as patient continues to urinate on the ground and remains irritable during the encounter. Allergies No Known Allergies Allergy (Verified 01/23/19 19:29) Active Medications Acetaminophen (Tylenol -) 650 mg PO Q6H PRN PRN Reason: FEVER Last Admin: 01/31/19 09:43 Dose: 650 mg Albuterol/Ipratropium (Duoneb -) 1 amp NEB Q6H PRN PRN Reason: SHORTNESS OF BREATH Last Admin: 01/31/19 20:29 Dose: 1 amp Budesonide/Formoterol Fumarate (Symbicort 80/4.5mcg -) 2 puff IH BID [facility] Last Admin: 01/31/19 21:38 Dose: 2 puff Diphenhydramine HCl (Benadryl -) 25 mg PO Q6H PRN PRN Reason: FOR ITCHING Last Admin: 01/31/19 21:39 Dose: 25 mg Docusate Sodium (Colace -) 300 mg PO HS [facility] Last Admin: 01/31/19 21:39 Dose: 300 mg Enoxaparin Sodium (Lovenox -) 40 mg SQ DAILY [facility] Last Admin: 01/31/19 09:30 Dose: 40 mg Ferrous Gluconate (Fergon -) 324 mg PO DAILY [facility] Last Admin: 01/31/19 09:34 Dose: 324 mg Gabapentin (Neurontin -) 300 mg PO BID PRN PRN Reason: PAIN Last Admin: 01/30/19 17:20 Dose: 300 mg Guaifenesin (Robitussin Dm -) 10 ml PO Q6H PRN PRN Reason: COUGH Last Admin: 01/31/19 21:38 Dose: 10 ml Sodium Chloride (Normal Saline -) 1,000 mls @ 75 mls/hr IV ASDIR [facility] Last Admin: 01/31/19 23:27 Dose: 75 mls/hr Lidocaine (Lidoderm Patch -) 1 patch TP DAILY [facility] Last Admin: 01/31/19 09:37 Dose: 1 patch Lorazepam (Ativan Injection -) 0.5 mg IM TID PRN PRN Reason: ANXIETY Last Admin: 01/31/19 23:24 Dose: 0.5 mg Methadone HCl (Dolophine -) 10 mg PO Q12H [facility] Last Admin: 01/31/19 23:23 Dose: 10 mg Metoprolol Tartrate (Lopressor Injection -) 5 mg IVPUSH Q6H PRN PRN Reason: TACHYCARDIA Last Admin: 01/25/19 16:12 Dose: 5 mg Metoprolol Tartrate (Lopressor -) 50 mg PO BID [facility] Last Admin: 01/31/19 21:39 Dose: 50 mg Miscellaneous (Lidoderm Patch Removal) 1 each MC DAILY@2200 [facility] Last Admin: 01/31/19 21:43 Dose: 1 each Oxycodone HCl (Roxicodone -) 5 mg PO Q4H PRN PRN Reason: PAIN LEVEL 6-10 Last Admin: 01/31/19 14:43 Dose: 5 mg Pantoprazole Sodium (Protonix -) 40 mg PO DAILY [facility] Last Admin: 01/31/19 09:31 Dose: 40 mg Polyethylene Glycol (Miralax (For Daily Use) -) 17 gm PO BID [facility] Last Admin: 01/31/19 21:39 Dose: 17 gm Prednisone (Deltasone -) 40 mg PO DAILY [facility] Tamsulosin HCl (Flomax -) 0.4 mg PO BID [facility] Last Admin: 01/31/19 21:39 Dose: 0.4 mg PHYSICAL EXAMINATION Vital Signs Period Temp Pulse Resp BP Sys/Seo Pulse Ox Last 24 Hr 97.5 F-100.8 F 64-118 18-20 134-151/68-95 95-96 GENERAL: Awake, alert, and fully oriented, in no acute distress. HEAD: Normal with no signs of trauma. EYES: Pupils equal, round and reactive to light, extraocular movements intact, sclera anicteric, conjunctiva clear. No lid lag. EARS, NOSE, THROAT: Ears normal, nares patent, oropharynx clear without exudates. Moist mucous membranes. NECK: Normal range of motion, supple without lymphadenopathy, JVD, or masses. LUNGS: decreased air entry on the right, expiratory wheeze B/L HEART: elevated rate, regular rhythm, normal S1 and S2 without murmur, rub or gallop. ABDOMEN: Soft, nontender, not distended, normoactive bowel sounds, no guarding, no rebound, no masses. No hepatomegaly or splenomegaly. MUSCULOSKELETAL: Normal range of motion at all joints. No bony deformities or tenderness. No CVA tenderness. UPPER EXTREMITIES: 2+ pulses, warm, well-perfused. No cyanosis. No clubbing. No peripheral edema. LOWER EXTREMITIES: B/L pitting edema 2+, more on the right NEUROLOGICAL: Cranial nerves II-XII intact. Normal speech. Normal gait. PSYCHIATRIC: Cooperative. Good eye contact. Appropriate mood and affect. SKIN: Warm, dry, normal turgor, no rashes or lesions noted, normal capillary refill. CBCD WBC 13.9 K/mm3 (4.0-10.0) H 02/01/19 05:20 RBC 3.09 M/mm3 (4.00-5.60) L 02/01/19 05:20 Hgb 9.1 GM/dL (11.7-16.9) L 02/01/19 05:20 Hct 27.9 % (35.4-49) L 02/01/19 05:20 MCV 90.5 fl (80-96) 02/01/19 05:20 MCHC 32.5 g/dl (32.0-35.9) 02/01/19 05:20 RDW 16.8 % (11.9-15.9) H 02/01/19 05:20 Plt Count 118 K/MM3 (134-434) L 02/01/19 05:20 MPV 7.8 fl (7.5-11.1) 02/01/19 05:20 CMP Sodium 132 mmol/L (136-145) L 02/01/19 05:20 Potassium 3.9 mmol/L (3.5-5.1) 02/01/19 05:20 Chloride 96 mmol/L (98-107) L 02/01/19 05:20 Carbon Dioxide 31 mmol/L (21-32) 02/01/19 05:20 Anion Gap 6 MMOL/L (8-16) L 02/01/19 05:20 BUN 9.6 mg/dL (7-18) 02/01/19 05:20 Creatinine 0.4 mg/dL (0.55-1.3) L 02/01/19 05:20 Random Glucose 104 mg/dL (74-106) 02/01/19 05:20 Calcium 8.3 mg/dL (8.5-10.1) L 02/01/19 05:20 Total Bilirubin 0.6 mg/dL (0.2-1) 02/01/19 05:20 AST 30 U/L (15-37) 02/01/19 05:20 ALT 55 U/L (13-61) 02/01/19 05:20 Alkaline Phosphatase 185 U/L (45-117) H 02/01/19 05:20 Total Protein 6.2 g/dl (6.4-8.2) L 02/01/19 05:20 Albumin 2.2 g/dl (3.4-5.0) L 02/01/19 05:20 ASSESSMENT/PLAN: This is a 68 year old male with PMH significant for RUL squamous cell CA, diagnosed in August. He presented to the ER from Dr. Aviles's office on day of admission, after he was found to be anemic (H&H 7.9/25.0), and complains of B/L leg edema and generalized weakness over the past 1 week. He stated that he was visiting Dr. Aviles for a regular follow up appointment for his CA, and was due to start new medication (as per Dr. Aviles's note on 01/10, he has completed his course of Carboplatin and Paclitaxel, due to start Keytruda). He was found to be anemic and was referred to [facility] for a blood transfusion. He stated that the leg edema began gradually, over the past week, and he denies any associated trauma or recent illnesses. He also complained of urinary urgency and constipation, both of which began over the past week. He does not remember when he had his last bowel movement. He endorses subjective fevers over the past day , without any chills, diarrhea, dysuria, hematuria, nausea, vomiting, or diarrhea. He also complained of SOB, light headedness, dizziness, insomnia, and chest pain since his diagnosis in August. The chest pain is on the right side of his chest, 7/10 in intensity, described as a squeezing pain, constant in nature but varying in intensity, radiating to the posterior aspect of his right shoulder, with no recognizable aggravating or alleviating factors. He also complained of a productive cough with yellowish sputum for the past 5 months. He was recently discharged from [facility] on 01/08/19, he was admitted for post obstructive pneumonia and was treated with Zosyn, and discharged on a 1 week course of Augmentin. CT head had been ordered, modified to MRI brain, unclear if patient will be able to tolerate. May require sedative which can further consultation mental status. Reviewed patient's MRI of the brain from December 2018 and did not indicate any metastasis or significant structural abnormalities. patient remains confused this morning and may benefit from psychiatric consultation.. Discussed with nurse at bedside as patient continues to urinate on the ground and remains irritable during the encounter. Continue monitoring mental status, frequent reorientation, remains confused. Heme/Onc following closely.
[2019-02-01] MEDS ORDERED: QUEtiapine FUMARATE 25 MG TABLET (FP) PO ONE (10:59)
[2019-02-01] MEDS ORDERED: PT OWN MED DRAWER 7, Y5N ONE (11:13)
[2019-02-01] MEDS: TAMSULOSIN HCL 0.4 MG CAP PO SCH ×2 (11:18→21:57)
[2019-02-01] MEDS: PANTOPRAZOLE 40 MG TABLET (FP) PO SCH (11:18)
[2019-02-01] MEDS: LIDOCAINE 5% TOPICAL PATCH TP SCH (11:18)
[2019-02-01] MEDS: predniSONE 20 MG TABLET (UD) PO SCH (11:18)
[2019-02-01] MEDS: METOPROLOL TARTRATE 25 MG TABLET (FP) PO SCH ×2 (11:18→21:57)
[2019-02-01] MEDS: FERROUS GLUCONATE 324 MG TAB (FP) PO SCH (11:18)
[2019-02-01] MEDS: ENOXAPARIN NA (PORCINE) 40 MG/0.4 ML DISP.SYRIN SQ SCH (11:18)
[2019-02-01] MEDS: POLYETHYLENE GLYCOL 3350 119 GM BTL PO SCH ×2 (11:19→22:14)
[2019-02-01] MEDS: BUDESONIDE/FORMETEROL FUMARATE 80/4.5 mcg INHALER IH SCH ×2 (11:19→21:58)
[2019-02-01 11:27] LABS: ANISOCYTOSIS 1+; MACROCYTOSIS 1+; OVALOCYTE 1+; PLATELET ESTIMATE DECREASED
--- NOTE | 2019-02-01 12:17 | PN ---
Progress Note, Physician History of Present Illness: Confused sitting in riya vest. Remains in NSR. - Current Medication List Current Medications: Active Medications Acetaminophen (Tylenol -) 650 mg PO Q6H PRN PRN Reason: FEVER Last Admin: 01/31/19 09:43 Dose: 650 mg Albuterol/Ipratropium (Duoneb -) 1 amp NEB Q6H PRN PRN Reason: SHORTNESS OF BREATH Last Admin: 01/31/19 20:29 Dose: 1 amp Budesonide/Formoterol Fumarate (Symbicort 80/4.5mcg -) 2 puff IH BID [facility] Last Admin: 02/01/19 11:19 Dose: 2 puff Diphenhydramine HCl (Benadryl -) 25 mg PO Q6H PRN PRN Reason: FOR ITCHING Last Admin: 01/31/19 21:39 Dose: 25 mg Docusate Sodium (Colace -) 300 mg PO HS [facility] Last Admin: 01/31/19 21:39 Dose: 300 mg Enoxaparin Sodium (Lovenox -) 40 mg SQ DAILY [facility] Last Admin: 02/01/19 11:18 Dose: 40 mg Ferrous Gluconate (Fergon -) 324 mg PO DAILY [facility] Last Admin: 02/01/19 11:18 Dose: 324 mg Gabapentin (Neurontin -) 300 mg PO BID PRN PRN Reason: PAIN Last Admin: 01/30/19 17:20 Dose: 300 mg Guaifenesin (Robitussin Dm -) 10 ml PO Q6H PRN PRN Reason: COUGH Last Admin: 01/31/19 21:38 Dose: 10 ml Sodium Chloride (Normal Saline -) 1,000 mls @ 75 mls/hr IV ASDIR [facility] Last Admin: 01/31/19 23:27 Dose: 75 mls/hr Lidocaine (Lidoderm Patch -) 1 patch TP DAILY [facility] Last Admin: 02/01/19 11:18 Dose: 1 patch Lorazepam (Ativan Injection -) 0.5 mg IM TID PRN PRN Reason: ANXIETY Last Admin: 02/01/19 08:36 Dose: 0.5 mg Methadone HCl (Dolophine -) 10 mg PO Q12H [facility] Last Admin: 01/31/19 23:23 Dose: 10 mg Metoprolol Tartrate (Lopressor Injection -) 5 mg IVPUSH Q6H PRN PRN Reason: TACHYCARDIA Last Admin: 01/25/19 16:12 Dose: 5 mg Metoprolol Tartrate (Lopressor -) 50 mg PO BID [facility] Last Admin: 02/01/19 11:18 Dose: 50 mg Miscellaneous (Lidoderm Patch Removal) 1 each MC DAILY@2200 [facility] Last Admin: 01/31/19 21:43 Dose: 1 each Oxycodone HCl (Roxicodone -) 5 mg PO Q4H PRN PRN Reason: PAIN LEVEL 6-10 Last Admin: 01/31/19 14:43 Dose: 5 mg Pantoprazole Sodium (Protonix -) 40 mg PO DAILY [facility] Last Admin: 02/01/19 11:18 Dose: 40 mg Polyethylene Glycol (Miralax (For Daily Use) -) 17 gm PO BID [facility] Last Admin: 02/01/19 11:19 Dose: 17 gm Prednisone (Deltasone -) 40 mg PO DAILY [facility] Last Admin: 02/01/19 11:18 Dose: 40 mg Tamsulosin HCl (Flomax -) 0.4 mg PO BID [facility] Last Admin: 02/01/19 11:18 Dose: 0.4 mg - Objective Vital Signs: Vital Signs Temperature 99.6 F 02/01/19 08:34 Pulse Rate 64 02/01/19 08:34 Respiratory Rate 20 02/01/19 08:34 Blood Pressure 150/95 02/01/19 08:34 O2 Sat by Pulse Oximetry (%) 97 02/01/19 08:40 Constitutional: Yes: No Distress, Calm, Thin Neck: Yes: Supple Cardiovascular: Yes: Regular Rate and Rhythm Respiratory: Yes: Regular, Diminished Gastrointestinal: Yes: Soft, Hypoactive Bowel Sounds Edema: No Labs: CBC, BMP 02/01/19 05:20 02/01/19 05:20 Problem List - Problems (1) Anemia Code(s): D64.9 - ANEMIA, UNSPECIFIED Qualifiers: Anemia type: unspecified type Qualified Code(s): D64.9 - Anemia, unspecified (2) Generalized weakness Code(s): R53.1 - WEAKNESS (3) Hyponatremia Code(s): E87.1 - HYPO-OSMOLALITY AND HYPONATREMIA (4) Lung cancer Code(s): C34.90 - MALIGNANT NEOPLASM OF UNSP PART OF UNSP BRONCHUS OR LUNG (5) PSVT (paroxysmal supraventricular tachycardia) Code(s): I47.1 - SUPRAVENTRICULAR TACHYCARDIA Assessment/Plan 01/26/2019 Echocardiography: Normal LV and RV size and fxn tr TR 1. PSVT s/p adenosine and cardioversion to sinus tachycardia 2. Squamous cell CA of lung s/p chemotherapy and radiation therapy 3. History of pneumonia 4. Anemia s/p PRBC transfusion 5. Generalized weakness due to above 6. 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 Hyponatremia resolved PLAN: 1. Continue Metoprolol 50 bid 2. Removed telemetry monitors 3. Transfuse PRBC as needed and follow CBC 4. Monitor NA and correct 5. DVT and Gi prophylaxis 6. Completed empiric antibiotic coverage, oral steroid taper, BD and O2 as needed
--- NOTE | 2019-02-01 12:29 | PN ---
Progress Note, Physician History of Present Illness: pulmonary awake,alert,no distress,+ cough - Current Medication List Current Medications: Active Medications Acetaminophen (Tylenol -) 650 mg PO Q6H PRN PRN Reason: FEVER Last Admin: 01/31/19 09:43 Dose: 650 mg Albuterol/Ipratropium (Duoneb -) 1 amp NEB Q6H PRN PRN Reason: SHORTNESS OF BREATH Last Admin: 01/31/19 20:29 Dose: 1 amp Budesonide/Formoterol Fumarate (Symbicort 80/4.5mcg -) 2 puff IH BID [facility] Last Admin: 02/01/19 11:19 Dose: 2 puff Diphenhydramine HCl (Benadryl -) 25 mg PO Q6H PRN PRN Reason: FOR ITCHING Last Admin: 01/31/19 21:39 Dose: 25 mg Docusate Sodium (Colace -) 300 mg PO HS [facility] Last Admin: 01/31/19 21:39 Dose: 300 mg Enoxaparin Sodium (Lovenox -) 40 mg SQ DAILY [facility] Last Admin: 02/01/19 11:18 Dose: 40 mg Ferrous Gluconate (Fergon -) 324 mg PO DAILY [facility] Last Admin: 02/01/19 11:18 Dose: 324 mg Gabapentin (Neurontin -) 300 mg PO BID PRN PRN Reason: PAIN Last Admin: 01/30/19 17:20 Dose: 300 mg Guaifenesin (Robitussin Dm -) 10 ml PO Q6H PRN PRN Reason: COUGH Last Admin: 01/31/19 21:38 Dose: 10 ml Sodium Chloride (Normal Saline -) 1,000 mls @ 75 mls/hr IV ASDIR [facility] Last Admin: 01/31/19 23:27 Dose: 75 mls/hr Lidocaine (Lidoderm Patch -) 1 patch TP DAILY [facility] Last Admin: 02/01/19 11:18 Dose: 1 patch Lorazepam (Ativan Injection -) 0.5 mg IM TID PRN PRN Reason: ANXIETY Last Admin: 02/01/19 08:36 Dose: 0.5 mg Methadone HCl (Dolophine -) 10 mg PO Q12H [facility] Last Admin: 01/31/19 23:23 Dose: 10 mg Metoprolol Tartrate (Lopressor Injection -) 5 mg IVPUSH Q6H PRN PRN Reason: TACHYCARDIA Last Admin: 01/25/19 16:12 Dose: 5 mg Metoprolol Tartrate (Lopressor -) 50 mg PO BID [facility] Last Admin: 02/01/19 11:18 Dose: 50 mg Miscellaneous (Lidoderm Patch Removal) 1 each MC DAILY@2200 [facility] Last Admin: 01/31/19 21:43 Dose: 1 each Oxycodone HCl (Roxicodone -) 5 mg PO Q4H PRN PRN Reason: PAIN LEVEL 6-10 Last Admin: 01/31/19 14:43 Dose: 5 mg Pantoprazole Sodium (Protonix -) 40 mg PO DAILY [facility] Last Admin: 02/01/19 11:18 Dose: 40 mg Polyethylene Glycol (Miralax (For Daily Use) -) 17 gm PO BID [facility] Last Admin: 02/01/19 11:19 Dose: 17 gm Prednisone (Deltasone -) 40 mg PO DAILY [facility] Last Admin: 02/01/19 11:18 Dose: 40 mg Tamsulosin HCl (Flomax -) 0.4 mg PO BID [facility] Last Admin: 02/01/19 11:18 Dose: 0.4 mg - Objective Vital Signs: Vital Signs Temperature 99.6 F 02/01/19 08:34 Pulse Rate 64 02/01/19 08:34 Respiratory Rate 20 02/01/19 08:34 Blood Pressure 150/95 02/01/19 08:34 O2 Sat by Pulse Oximetry (%) 97 02/01/19 08:40 Constitutional: Yes: Calm, Thin Eyes: Yes: WNL HENT: Yes: WNL Neck: Yes: WNL Cardiovascular: Yes: Regular Rate and Rhythm, S1, S2 Respiratory: Yes: Rhonchi (few scattered alphonso rhonchi) Gastrointestinal: Yes: Normal Bowel Sounds, Soft Extremities: Yes: WNL Edema: No Labs: CBC, BMP 02/01/19 05:20 02/01/19 05:20 Problem List - Problems (1) Agitated Code(s): R45.1 - RESTLESSNESS AND AGITATION (2) Anemia Code(s): D64.9 - ANEMIA, UNSPECIFIED Qualifiers: Qualified Code(s): D64.9 - Anemia, unspecified (3) COPD exacerbation Code(s): J44.1 - CHRONIC OBSTRUCTIVE PULMONARY DISEASE W (ACUTE) EXACERBATION (4) Dysrhythmia Code(s): I49.9 - CARDIAC ARRHYTHMIA, UNSPECIFIED (5) Lung cancer Code(s): C34.90 - MALIGNANT NEOPLASM OF UNSP PART OF UNSP BRONCHUS OR LUNG (6) PSVT (paroxysmal supraventricular tachycardia) Code(s): I47.1 - SUPRAVENTRICULAR TACHYCARDIA Assessment/Plan ASSESSMENT AND PLAN: SVT s/p DCCV Advanced NSCLC (Squamous cell) s/p chemo Low clinical impression of PNA Chronic Pain/Methadone Maintenance Anemia Smoker - rate control - monitor H/H - Normal transfusion threshold - DVT prophylaxis - Prednisone DR EDWARDS
[2019-02-01] MEDS: SODIUM CHLORIDE 1,000 ML IV SCH ×2 (13:20→18:37)
--- NOTE | 2019-02-01 13:25 | PN ---
Teaching Attending Note Name of Resident: Sherry Kapadia ATTENDING PHYSICIAN STATEMENT I saw and evaluated the patient. I reviewed the resident's note and discussed the case with the resident. I agree with the resident's findings and plan as documented. SUBJECTIVE: Disoriented. No complaints. Does not participate in medical interview - answers some questions. OBJECTIVE: Fever - Last fever 01/31 10am Tmax 100.8, Hemodynamically Stable. Waxing and Waning mental status, now AAO x 1, although reportedly AAO x 3 for periods yesterday and this AM. Last Vital Signs Temp Pulse Resp BP Pulse Ox 99.6 F 64 20 150/95 97 02/01/19 08:34 02/01/19 08:34 02/01/19 08:34 02/01/19 08:34 02/01/19 08:40 HEART: S1S2, RRR LUNGS: no wheeze, good air entry bilaterally ABDOMEN: Soft, non-tender, non-distended, normal BS EXTREMITIES: Edema ++, no calf tenderness. NEURO: AAO x 1. Tone/Power normal all 4 extremities. Laboratory Results - last 24 hr 01/31/19 01/31/19 02/01/19 06:12 16:11 05:20 WBC 13.9 H RBC 3.09 L Hgb 9.1 L Hct 27.9 L MCV 90.5 MCH 29.4 MCHC 32.5 RDW 16.8 H Plt Count 118 L MPV 7.8 Absolute Neuts (auto) 13.1 H Neutrophils % 94.0 H Neutrophils % (Manual) 92.0 H Band Neutrophils % 2.0 Lymphocytes % 2.1 L D Lymphocytes % (Manual) 3.0 L D Monocytes % 3.3 L Monocytes % (Manual) 3 L Eosinophils % 0.0 Eosinophils % (Manual) 0.0 Basophils % 0.6 Basophils % (Manual) 0.0 Myelocytes % (Man) 0 Promyelocytes % (Man) 0 Blast Cells % (Manual) 0 Nucleated RBC % 0 Metamyelocytes 0 Hypochromia 0 Platelet Estimate Decreased Polychromasia 0 Poikilocytosis 1+ Anisocytosis 1+ Microcytosis 1+ Macrocytosis 1+ Ovalocytes 1+ Sodium 133 L Potassium 3.6 Chloride 95 L Carbon Dioxide 30 Anion Gap 9 BUN 11.4 Creatinine 0.4 L Est GFR (CKD-EPI)AfAm 141.45 Est GFR (CKD-EPI)NonAf 122.04 Random Glucose 141 H Calcium 8.8 Total Bilirubin 0.6 Direct Bilirubin 0.3 H GGT AST 46 H ALT 60 Alkaline Phosphatase 209 H Ammonia Total Protein 6.5 Albumin 2.4 L Urine Color Yellow Urine Appearance Clear Urine pH 8.0 D Ur Specific [place] 1.013 Urine Protein Negative Urine Glucose (UA) Negative Urine Ketones Negative Urine Blood Negative Urine Nitrite Negative Urine Bilirubin Negative Urine Urobilinogen 1.0 Ur Leukocyte Esterase Negative 02/01/19 02/01/19 05:20 05:20 WBC RBC Hgb Hct MCV MCH MCHC RDW Plt Count MPV Absolute Neuts (auto) Neutrophils % Neutrophils % (Manual) Band Neutrophils % Lymphocytes % Lymphocytes % (Manual) Monocytes % Monocytes % (Manual) Eosinophils % Eosinophils % (Manual) Basophils % Basophils % (Manual) Myelocytes % (Man) Promyelocytes % (Man) Blast Cells % (Manual) Nucleated RBC % Metamyelocytes Hypochromia Platelet Estimate Polychromasia Poikilocytosis Anisocytosis Microcytosis Macrocytosis Ovalocytes Sodium 132 L Potassium 3.9 Chloride 96 L Carbon Dioxide 31 Anion Gap 6 L BUN 9.6 Creatinine 0.4 L Est GFR (CKD-EPI)AfAm 141.45 Est GFR (CKD-EPI)NonAf 122.04 Random Glucose 104 Calcium 8.3 L Total Bilirubin 0.6 Direct Bilirubin GGT 135 H AST 30 ALT 55 Alkaline Phosphatase 185 H Ammonia 33.00 H Total Protein 6.2 L Albumin 2.2 L Urine Color Urine Appearance Urine pH Ur Specific [place] Urine Protein Urine Glucose (UA) Urine Ketones Urine Blood Urine Nitrite Urine Bilirubin Urine Urobilinogen Ur Leukocyte Esterase Current Medications Generic Name Dose Route Start Last Admin Trade Name Freq PRN Reason Stop Dose Admin Acetaminophen 650 mg 01/27/19 15:22 01/31/19 09:43 Tylenol - PO 650 mg Q6H PRN Administration FEVER Albuterol/Ipratropium 1 amp 01/27/19 08:27 01/31/19 20:29 Duoneb - NEB 1 amp Q6H PRN Administration SHORTNESS OF BREATH Budesonide/Formoterol Fumarate 2 puff 01/28/19 10:00 02/01/19 11:19 Symbicort 80/4.5mcg - IH 2 puff BID SHIRA Administration Diphenhydramine HCl 25 mg 01/31/19 12:25 01/31/19 21:39 Benadryl - PO 25 mg Q6H PRN Administration FOR ITCHING Docusate Sodium 300 mg 01/24/19 22:00 01/31/19 21:39 Colace - PO 300 mg HS SHIRA Administration Enoxaparin Sodium 40 mg 01/25/19 10:00 02/01/19 11:18 Lovenox - SQ 40 mg DAILY SHIRA Administration Ferrous Gluconate 324 mg 01/28/19 10:00 02/01/19 11:18 Fergon - PO 324 mg DAILY SHIRA Administration Gabapentin 300 mg 01/24/19 17:53 01/30/19 17:20 Neurontin - PO 300 mg BID PRN Administration PAIN Guaifenesin 10 ml 01/29/19 14:40 01/31/19 21:38 Robitussin Dm - PO 10 ml Q6H PRN Administration COUGH Sodium Chloride 1,000 mls @ 75 mls/hr 01/24/19 17:53 02/01/19 13:20 Normal Saline - IV 75 mls/hr ASDIR SHIRA Administration Lidocaine 1 patch 01/27/19 12:30 02/01/19 11:18 Lidoderm Patch - TP 1 patch DAILY SHIRA Administration Lorazepam 0.5 mg 01/28/19 09:48 02/01/19 08:36 Ativan Injection - IM 0.5 mg TID PRN Administration ANXIETY Methadone HCl 10 mg 01/25/19 00:15 01/31/19 23:23 Dolophine - PO 10 mg Q12H SHIRA Administration Metoprolol Tartrate 5 mg 01/24/19 16:15 01/25/19 16:12 Lopressor Injection - IVPUSH 5 mg Q6H PRN Administration TACHYCARDIA Metoprolol Tartrate 50 mg 01/27/19 11:01 02/01/19 11:18 Lopressor - PO 50 mg BID SHIRA Administration Miscellaneous 1 each 01/27/19 23:00 01/31/19 21:43 Lidoderm Patch Removal MC 1 each DAILY@2200 SHIRA Administration Oxycodone HCl 5 mg 01/29/19 18:14 01/31/19 14:43 Roxicodone - PO 5 mg Q4H PRN Administration PAIN LEVEL 6-10 Pantoprazole Sodium 40 mg 01/28/19 10:00 02/01/19 11:18 Protonix - PO 40 mg DAILY SHIRA Administration Polyethylene Glycol 17 gm 01/24/19 22:00 02/01/19 11:19 Miralax (For Daily Use) - PO 17 gm BID SHIRA Administration Prednisone 40 mg 02/01/19 10:00 02/01/19 11:18 Deltasone - PO 40 mg DAILY SHIRA Administration Tamsulosin HCl 0.4 mg 01/28/19 10:00 02/01/19 11:18 Flomax - PO 0.4 mg BID SHIRA Administration Home Medications Medication Instructions Recorded Docusate Sodium [Colace] 100 mg PO TID 01/05/19 Gabapentin 300 mg PO Q8H PRN 01/05/19 Oxycodone HCl 5 mg PO Q4H PRN 01/05/19 Pantoprazole Sodium [Protonix] 40 mg PO DAILY 01/05/19 Tamsulosin HCl 0.4 mg PO BID 01/05/19 Cannabidiol (Cbd) Extract 0.2 ml PO BID 01/06/19 Ferrous Gluconate [Fergon -] 324 mg PO DAILY #30 tab 01/08/19 Methadone [Dolophine -] 10 mg PO Q12H 01/08/19 Azithromycin [Zithromax 250mg 250 mg PO DAILY 01/25/19 Tablets -] Guaifenesin Dm [Robitussin Dm -] 10 ml PO Q6H PRN 01/25/19 Salmeterol/Fluticasone [Advair 250 mcg PO PRN 01/25/19 100Mcg/50Mcg -] ASSESSMENT AND PLAN: 68 year old man with a history of Squamous cell lung cancer, bowel resection secondary to obstruction, tobacco use, alcohol use, chronic pain syndrome, opioid dependence on methadone, BPH, sent by Dr. Aviles to the ED for weakness, leg edema, and anemia. 1. Sepsis, source unclear. Tmax yesterday 100.8, HR 118 - Today afebrile with HR 64 Leukocytosis improving (confounded by IV steroid use) Initial septic screen negative Repeat septic screen pending. CXR - RUL cavitary lesion (known), no new consolidation. ID following. Not on abx. 2. Acute Encephalopathy - Metabolic versus Toxic On Methadone and Oxycodone Pain management consulted for rationalization of pain medication regimen. MRI Brain 12/[address] Brain 01/06 - negative for significant acute findings Neurology following. Neuro and Oncology recommend Brain imaging. MRI pending. Will attempt trial of Seroquel 25mg. 3. Paroxysmal supraventricular tachycardia - resolved s/p Adenosine, s/p Cardioversion - Continue Lopressor. 4. Acute Exacerbation of COPD - improving. IV solumedrol transitioned to oral prednosone. Continue Duonebs. 5. Squamous cell Lung Cancer - s/p weekly carbo/taxol, s/p 1 cycle pembrolizumab - further management as per Oncology. 6. Anemia secondary to chronic disease/iron deficiency - Hematology/Oncology following - Continue ferrous gluconate 7. Chronic pain syndrome - Continue Methadone, Lidoderm patch, Neurontin, Oxycodone as needed pending Pain management evaluation. 8. BPH - Continue Flomax DVT Px - Lovenox SQ
--- NOTE | 2019-02-01 18:21 | PN ---
Physical Exam: SUBJECTIVE: Patient seen and examined. He is sitting in bed not communicating today. OBJECTIVE: Vital Signs Period Temp Pulse Resp BP Sys/Seo Pulse Ox Last 24 Hr 97.0 F-99.6 F 64-113 20-20 127-151/75-95 96-97 GENERAL: The patient is awake, alert, and oriented x2, in no acute distress. HEAD: Normal with no signs of trauma. EYES: PERRL, extraocular movements intact, sclera anicteric, conjunctiva clear. No ptosis. ENT: Ears normal, nares patent, moist mucous membranes. NECK: Trachea midline, full range of motion, supple. LUNGS: Expiratory wheezing bilaterally, no accessory muscle use. HEART: Regular rate and rhythm, S1, S2 without murmur, rub or gallop. ABDOMEN: Soft, nontender, nondistended, normoactive bowel sounds EXTREMITIES: 2+ pulses, warm, well-perfused, no edema. NEUROLOGICAL: Cranial nerves II through XII grossly intact. Normal speech, gait not observed. PSYCH: Normal mood, normal affect. SKIN: Warm, dry, normal turgor, no rashes or lesions noted on trunk or extremities Laboratory Results - last 24 hr 02/01/19 02/01/19 02/01/19 05:20 05:20 05:20 WBC 13.9 H RBC 3.09 L Hgb 9.1 L Hct 27.9 L MCV 90.5 MCH 29.4 MCHC 32.5 RDW 16.8 H Plt Count 118 L MPV 7.8 Absolute Neuts (auto) 13.1 H Neutrophils % 94.0 H Neutrophils % (Manual) 92.0 H Band Neutrophils % 2.0 Lymphocytes % 2.1 L D Lymphocytes % (Manual) 3.0 L D Monocytes % 3.3 L Monocytes % (Manual) 3 L Eosinophils % 0.0 Eosinophils % (Manual) 0.0 Basophils % 0.6 Basophils % (Manual) 0.0 Myelocytes % (Man) 0 Promyelocytes % (Man) 0 Blast Cells % (Manual) 0 Nucleated RBC % 0 Metamyelocytes 0 Hypochromia 0 Platelet Estimate Decreased Polychromasia 0 Poikilocytosis 1+ Anisocytosis 1+ Microcytosis 1+ Macrocytosis 1+ Ovalocytes 1+ Sodium 132 L Potassium 3.9 Chloride 96 L Carbon Dioxide 31 Anion Gap 6 L BUN 9.6 Creatinine 0.4 L Est GFR (CKD-EPI)AfAm 141.45 Est GFR (CKD-EPI)NonAf 122.04 Random Glucose 104 Calcium 8.3 L Total Bilirubin 0.6 GGT 135 H AST 30 ALT 55 Alkaline Phosphatase 185 H Ammonia 33.00 H Total Protein 6.2 L Albumin 2.2 L Active Medications Generic Name Dose Route Start Last Admin Trade Name Freq PRN Reason Stop Dose Admin Acetaminophen 650 mg 01/27/19 15:22 01/31/19 09:43 Tylenol - PO 650 mg Q6H PRN Administration FEVER Albuterol/Ipratropium 1 amp 01/27/19 08:27 01/31/19 20:29 Duoneb - NEB 1 amp Q6H PRN Administration SHORTNESS OF BREATH Budesonide/Formoterol Fumarate 2 puff 01/28/19 10:00 02/01/19 11:19 Symbicort 80/4.5mcg - IH 2 puff BID SHIRA Administration Diphenhydramine HCl 25 mg 01/31/19 12:25 01/31/19 21:39 Benadryl - PO 25 mg Q6H PRN Administration FOR ITCHING Docusate Sodium 300 mg 01/24/19 22:00 01/31/19 21:39 Colace - PO 300 mg HS SHIRA Administration Enoxaparin Sodium 40 mg 01/25/19 10:00 02/01/19 11:18 Lovenox - SQ 40 mg DAILY SHIRA Administration Ferrous Gluconate 324 mg 01/28/19 10:00 02/01/19 11:18 Fergon - PO 324 mg DAILY SHIRA Administration Gabapentin 300 mg 01/24/19 17:53 01/30/19 17:20 Neurontin - PO 300 mg BID PRN Administration PAIN Guaifenesin 10 ml 01/29/19 14:40 01/31/19 21:38 Robitussin Dm - PO 10 ml Q6H PRN Administration COUGH Sodium Chloride 1,000 mls @ 75 mls/hr 01/24/19 17:53 02/01/19 13:20 Normal Saline - IV 75 mls/hr ASDIR SHIRA Administration Lidocaine 1 patch 01/27/19 12:30 02/01/19 11:18 Lidoderm Patch - TP 1 patch DAILY SHIRA Administration Methadone HCl 10 mg 01/25/19 00:15 01/31/19 23:23 Dolophine - PO 10 mg Q12H SHIRA Administration Metoprolol Tartrate 5 mg 01/24/19 16:15 01/25/19 16:12 Lopressor Injection - IVPUSH 5 mg Q6H PRN Administration TACHYCARDIA Metoprolol Tartrate 50 mg 01/27/19 11:01 02/01/19 11:18 Lopressor - PO 50 mg BID SHIRA Administration Miscellaneous 1 each 01/27/19 23:00 01/31/19 21:43 Lidoderm Patch Removal MC 1 each DAILY@2200 SHIRA Administration Pantoprazole Sodium 40 mg 01/28/19 10:00 02/01/19 11:18 Protonix - PO 40 mg DAILY SHIRA Administration Polyethylene Glycol 17 gm 01/24/19 22:00 02/01/19 11:19 Miralax (For Daily Use) - PO 17 gm BID SHIRA Administration Prednisone 40 mg 02/01/19 10:00 02/01/19 11:18 Deltasone - PO 40 mg DAILY SHIRA Administration Tamsulosin HCl 0.4 mg 01/28/19 10:00 02/01/19 11:18 Flomax - PO 0.4 mg BID SHIRA Administration ASSESSMENT/PLAN: 68 y/o male with right squamous cell carcinoma, SBO s/p bowel resection, polysubstance use, and chronic pain syndrome on methadone sent to ED for symptomatic anemia. Pt is known to Dr. Aviles and was experiencing SOB, tiredness , and lethargy, with office Hb 7.4 requiring transfusion to maintain specific parameters. Pt received PRBC in ED. Pt entered SVT and given adenosine, lopressor, and 50 J cardioversion. Pt transferred monitored in ICU and eventually sent to telemetry. #sepsis unclear source CXR: Prominent mediastinum, RUL cavitary mass, right early infiltrate, increasing atelectatic changes. POCUS/doppler negative. Afebrile now. Tmax 100.8 yesterday. Afebrile. -U/A, urine culture, blood culture ordered -ID- order new urine and blood cultures, continue to monitor -TSH WNL -Lopressor 50mg BID -Lopressor 5mg push PRN tachycardia >120 #acute toxic encephalopathy, medication-induced vs metabolic Oxycodone reduced to 5mg. Recent MRI that was negative for mets or acute pathology and low concern for CVA at this time -riya vest PRN agitation as first line -Seroquel 25mg trial -MRI #paroxysmal SVT -Echo- trace TR, EF 60-65% -TSH normal, free T4 slightly elevated -Cards consulted: Metoprolol 25 bid. #anemia of chronic disease Hemodynamically stable with no signs of bleeding. Hb 8.2. s/p 1 unit PRBC. #squamous cell carcinoma of right lung MRI brain 12/13/18 showed no mets. -primary heme/onc consulted (Dr. Aviles) -oxycodone 5mg, lidoderm patch, methadone 10mg BID, gabapentin 300mg BID PRN, tylenol -Symbicort -Solumedrol 40mg Q8H -Robitussin PRN cough #transaminitis Alk phos elevated but trending down. Unknown if have bone involvement from malignancy. Elevated GGT 189. -continue to monitor FEN NS 75mL/hr monitor electrolytes regular diet DVT Ppx Lovenox GI Ppx Protonix Dispo tele Visit type - Emergency Visit Emergency Visit: Yes ED Registration Date: 01/23/19 Care time: The patient presented to the Emergency Department on the above date and was hospitalized for further evaluation of their emergent condition. - New Patient This patient is new to me today: No - Critical Care Critical Care patient: No - Discharge Referral Referred to [facility] No ATTENDING PHYSICIAN STATEMENT I saw and evaluated the patient. I reviewed the resident's note and discussed the case with the resident. I agree with the resident's findings and plan as documented. SUBJECTIVE: OBJECTIVE: ASSESSMENT AND PLAN:
[2019-02-01] MEDS: METHADONE HCL 10 MG TABLET PO SCH (18:37)
--- NOTE | 2019-02-01 19:15 | PN ---
Progress Note (short form) - Note Progress Note: Patient seen and examined Seen by Pain management Issues discussed Underwent sono No obvious mets seen , but limited study Last Vital Signs Temp Pulse Resp BP Pulse Ox 98.0 F 101 H 19 107/64 97 02/01/19 18:00 02/01/19 18:00 02/01/19 18:00 02/01/19 18:00 02/01/19 08:40 Lungs - diminished breath sounds Cor- RSR Abd-soft Confused CBC, BMP 02/01/19 05:20 02/01/19 05:20 Current Medications Generic Name Dose Route Start Last Admin Trade Name Freq PRN Reason Stop Dose Admin Acetaminophen 650 mg 01/27/19 15:22 01/31/19 09:43 Tylenol - PO 650 mg Q6H PRN Administration FEVER Albuterol/Ipratropium 1 amp 01/27/19 08:27 01/31/19 20:29 Duoneb - NEB 1 amp Q6H PRN Administration SHORTNESS OF BREATH Budesonide/Formoterol Fumarate 2 puff 01/28/19 10:00 02/01/19 11:19 Symbicort 80/4.5mcg - IH 2 puff BID SHIRA Administration Diphenhydramine HCl 25 mg 01/31/19 12:25 01/31/19 21:39 Benadryl - PO 25 mg Q6H PRN Administration FOR ITCHING Docusate Sodium 300 mg 01/24/19 22:00 01/31/19 21:39 Colace - PO 300 mg HS SHIRA Administration Enoxaparin Sodium 40 mg 01/25/19 10:00 02/01/19 11:18 Lovenox - SQ 40 mg DAILY SHIRA Administration Ferrous Gluconate 324 mg 01/28/19 10:00 02/01/19 11:18 Fergon - PO 324 mg DAILY SHIRA Administration Gabapentin 300 mg 01/24/19 17:53 01/30/19 17:20 Neurontin - PO 300 mg BID PRN Administration PAIN Guaifenesin 10 ml 01/29/19 14:40 01/31/19 21:38 Robitussin Dm - PO 10 ml Q6H PRN Administration COUGH Sodium Chloride 1,000 mls @ 75 mls/hr 01/24/19 17:53 02/01/19 18:37 Normal Saline - IV Not Given ASDIR SHIRA Lidocaine 1 patch 01/27/19 12:30 02/01/19 11:18 Lidoderm Patch - TP 1 patch DAILY SHIRA Administration Methadone HCl 10 mg 01/25/19 00:15 02/01/19 18:37 Dolophine - PO Not Given Q12H SHIRA Metoprolol Tartrate 5 mg 01/24/19 16:15 01/25/19 16:12 Lopressor Injection - IVPUSH 5 mg Q6H PRN Administration TACHYCARDIA Metoprolol Tartrate 50 mg 01/27/19 11:01 02/01/19 11:18 Lopressor - PO 50 mg BID SHIRA Administration Miscellaneous 1 each 01/27/19 23:00 01/31/19 21:43 Lidoderm Patch Removal MC 1 each DAILY@2200 SHIRA Administration Pantoprazole Sodium 40 mg 01/28/19 10:00 02/01/19 11:18 Protonix - PO 40 mg DAILY SHIRA Administration Polyethylene Glycol 17 gm 01/24/19 22:00 02/01/19 11:19 Miralax (For Daily Use) - PO 17 gm BID SHIRA Administration Prednisone 40 mg 02/01/19 10:00 02/01/19 11:18 Deltasone - PO 40 mg DAILY SHIRA Administration Tamsulosin HCl 0.4 mg 01/28/19 10:00 02/01/19 11:18 Flomax - PO 0.4 mg BID SHIRA Administration Impression: [facility] Pain management Anemia Discussed once again with family rationale for with-holding any treatment--( immunotherpy) Consideration for nerve stimulator. Will need to optimize condition and monitor coags and platelets. Will need cervical spine and thoracic spine MRI for nerve stimulator . Can order when patient will be more compliant.
--- NOTE | 2019-02-01 19:19 | PN ---
Progress Note (short form) - Note Progress Note: Patient seen and examined. Patient known to me with 2-3 outpatient visits in my office. At his first appt a recommendation of scs trial was suggested but at that time the family refused. Currently he is confused from possible toxic encephalopathy. His at his bedside. His current pain medication includes- methadone 10mg PO q12h His oxycodone was stopped due to confusion. Neurontin was decreased to 300mg PO q12h. 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 His confusion could be related to drug interactions-benadryl, robitussen, neurontin, methadone and seroquel could have caused his recent confusion. Please adjust accordingly 2. His recent labs show decreasing platelet counts and coags. In order to possibly offer scs the patients lab should normalize. 3. He will also need an updated MRI thoracic and cervical spine- to assess epidural space prior to placement of scs 4. At this time pharmacological modalities for his pain should include: methadone 10mg PO 12h gabapentin 300mg (can consider lowering this to 100mg PO q8h) consider short acting opioid (oxycodone 5mg ) as needed.
[2019-02-01] MEDS: GABAPENTIN 300 MG CAPSULE (FP) PO PRN (19:53)
[2019-02-01] MEDS ORDERED: oxyCODONE HCL 5 MG TABLET PO PRN (20:30)
[2019-02-01] MEDS: DOCUSATE SODIUM 100 MG CAPSULE (FP) PO SCH (21:57)
[2019-02-01] MEDS: LIDOCAINE PATCH REMOVAL MC SCH (21:57)
[2019-02-02] MEDS: METHADONE HCL 10 MG TABLET PO SCH ×2 (01:07→13:47)
[2019-02-02] MEDS: SODIUM CHLORIDE 1,000 ML IV SCH (04:32)
[2019-02-02 07:04] LABS: BASO % 0.2 % (0-2.0); HEMATOCRIT 28.2 % (35.4-49); HEMOGLOBIN 9.1 GM/dL (11.7-16.9); LYMPH % 1.4 % (8-40); MCH 29.1 pg (25.7-33.7); MCHC 32.2 g/dl (32.0-35.9); MEAN CELL VOLUME 90.4 fl (80-96); MEAN PLT VOLUME 8.2 fl (7.5-11.1); MONO % 3.8 % (3.8-10.2); NEUT % 94.6 % (42.8-82.8); PLATELET COUNT 109 K/MM3 (134-434); RBC 3.11 M/mm3 (4.00-5.60); RDW 16.8 % (11.9-15.9); WHITE BLOOD COUNT 13.2 K/mm3 (4.0-10.0)
[2019-02-02 07:23] LABS: BILIRUBIN,TOTAL 0.8 mg/dL (0.2-1); BLOOD UREA NITROGEN 11.7 mg/dL (7-18); CALCIUM 8.1 mg/dL (8.5-10.1); CREATININE 0.4 mg/dL (0.55-1.3); POTASSIUM 3.4 mmol/L (3.5-5.1); TOT PROT 5.6 g/dl (6.4-8.2)
--- NOTE | 2019-02-02 09:11 | PN ---
Progress Note (short form) - Note Progress Note: Neurology HISTORY OF PRESENT ILLNESS: This is a 68 year old male with PMH significant for RUL squamous cell CA, diagnosed in August. He presented to the ER from Dr. Aviles's office on day of admission, after he was found to be anemic (H&H 7.9/25.0), and complains of B/L leg edema and generalized weakness over the past 1 week. He stated that he was visiting Dr. Aviles for a regular follow up appointment for his CA, and was due to start new medication (as per Dr. Aviles's note on 01/10, he has completed his course of Carboplatin and Paclitaxel, due to start Keytruda). He was found to be anemic and was referred to [facility] for a blood transfusion. He stated that the leg edema began gradually, over the past week, and he denies any associated trauma or recent illnesses. He also complained of urinary urgency and constipation, both of which began over the past week. He does not remember when he had his last bowel movement. He endorsed subjective fevers over the past day , without any chills, diarrhea, dysuria, hematuria, nausea, vomiting, or diarrhea. He also complained of SOB, light headedness, dizziness, insomnia, and chest pain since his diagnosis in August. The chest pain is on the right side of his chest, 7/10 in intensity, described as a squeezing pain, constant in nature but varying in intensity, radiating to the posterior aspect of his right shoulder, with no recognizable aggravating or alleviating factors. He also complained of a productive cough with yellowish sputum for the past 5 months. He was recently discharged from [facility] on 01/08/19, he was admitted for post obstructive pneumonia and was treated with Zosyn, and discharged on a 1 week course of Augmentin. CT head had been ordered, modified to MRI brain, unclear if patient will be able to tolerate. May require sedative which can further consultation mental status. Reviewed patient's MRI of the brain from December 2018 and did not indicate any metastasis or significant structural abnormalities. hepatic ultrasound reviewed, no evidence of hepatic mass. More calm this morning, being fed by nurse's aide at bedside Allergies No Known Allergies Allergy (Verified 01/23/19 19:29) Active Medications Acetaminophen (Tylenol -) 650 mg PO Q6H PRN PRN Reason: FEVER Last Admin: 01/31/19 09:43 Dose: 650 mg Albuterol/Ipratropium (Duoneb -) 1 amp NEB Q6H PRN PRN Reason: SHORTNESS OF BREATH Last Admin: 01/31/19 20:29 Dose: 1 amp Budesonide/Formoterol Fumarate (Symbicort 80/4.5mcg -) 2 puff IH BID [facility] Last Admin: 01/31/19 21:38 Dose: 2 puff Diphenhydramine HCl (Benadryl -) 25 mg PO Q6H PRN PRN Reason: FOR ITCHING Last Admin: 01/31/19 21:39 Dose: 25 mg Docusate Sodium (Colace -) 300 mg PO HS [facility] Last Admin: 01/31/19 21:39 Dose: 300 mg Enoxaparin Sodium (Lovenox -) 40 mg SQ DAILY [facility] Last Admin: 01/31/19 09:30 Dose: 40 mg Ferrous Gluconate (Fergon -) 324 mg PO DAILY [facility] Last Admin: 01/31/19 09:34 Dose: 324 mg Gabapentin (Neurontin -) 300 mg PO BID PRN PRN Reason: PAIN Last Admin: 01/30/19 17:20 Dose: 300 mg Guaifenesin (Robitussin Dm -) 10 ml PO Q6H PRN PRN Reason: COUGH Last Admin: 01/31/19 21:38 Dose: 10 ml Sodium Chloride (Normal Saline -) 1,000 mls @ 75 mls/hr IV ASDIR [facility] Last Admin: 01/31/19 23:27 Dose: 75 mls/hr Lidocaine (Lidoderm Patch -) 1 patch TP DAILY [facility] Last Admin: 01/31/19 09:37 Dose: 1 patch Lorazepam (Ativan Injection -) 0.5 mg IM TID PRN PRN Reason: ANXIETY Last Admin: 01/31/19 23:24 Dose: 0.5 mg Methadone HCl (Dolophine -) 10 mg PO Q12H [facility] Last Admin: 01/31/19 23:23 Dose: 10 mg Metoprolol Tartrate (Lopressor Injection -) 5 mg IVPUSH Q6H PRN PRN Reason: TACHYCARDIA Last Admin: 01/25/19 16:12 Dose: 5 mg Metoprolol Tartrate (Lopressor -) 50 mg PO BID [facility] Last Admin: 01/31/19 21:39 Dose: 50 mg Miscellaneous (Lidoderm Patch Removal) 1 each MC DAILY@2200 [facility] Last Admin: 01/31/19 21:43 Dose: 1 each Oxycodone HCl (Roxicodone -) 5 mg PO Q4H PRN PRN Reason: PAIN LEVEL 6-10 Last Admin: 01/31/19 14:43 Dose: 5 mg Pantoprazole Sodium (Protonix -) 40 mg PO DAILY [facility] Last Admin: 01/31/19 09:31 Dose: 40 mg Polyethylene Glycol (Miralax (For Daily Use) -) 17 gm PO BID [facility] Last Admin: 01/31/19 21:39 Dose: 17 gm Prednisone (Deltasone -) 40 mg PO DAILY [facility] Tamsulosin HCl (Flomax -) 0.4 mg PO BID [facility] Last Admin: 01/31/19 21:39 Dose: 0.4 mg PHYSICAL EXAMINATION Vital Signs Period Temp Pulse Resp BP Sys/Seo Pulse Ox Last 24 Hr 97.5 F-100.8 F 64-118 18-20 134-151/68-95 95-96 GENERAL: Awake, alert, and fully oriented, in no acute distress. HEAD: Normal with no signs of trauma. EYES: Pupils equal, round and reactive to light, extraocular movements intact, sclera anicteric, conjunctiva clear. No lid lag. EARS, NOSE, THROAT: Ears normal, nares patent, oropharynx clear without exudates. Moist mucous membranes. NECK: Normal range of motion, supple without lymphadenopathy, JVD, or masses. LUNGS: decreased air entry on the right, expiratory wheeze B/L HEART: elevated rate, regular rhythm, normal S1 and S2 without murmur, rub or gallop. ABDOMEN: Soft, nontender, not distended, normoactive bowel sounds, no guarding, no rebound, no masses. No hepatomegaly or splenomegaly. MUSCULOSKELETAL: Normal range of motion at all joints. No bony deformities or tenderness. No CVA tenderness. UPPER EXTREMITIES: 2+ pulses, warm, well-perfused. No cyanosis. No clubbing. No peripheral edema. LOWER EXTREMITIES: B/L pitting edema 2+, more on the right NEUROLOGICAL: Cranial nerves II-XII intact. Normal speech. Normal gait. PSYCHIATRIC: Cooperative. Good eye contact. Appropriate mood and affect. SKIN: Warm, dry, normal turgor, no rashes or lesions noted, normal capillary refill. CBCD WBC 13.9 K/mm3 (4.0-10.0) H 02/01/19 05:20 RBC 3.09 M/mm3 (4.00-5.60) L 02/01/19 05:20 Hgb 9.1 GM/dL (11.7-16.9) L 02/01/19 05:20 Hct 27.9 % (35.4-49) L 02/01/19 05:20 MCV 90.5 fl (80-96) 02/01/19 05:20 MCHC 32.5 g/dl (32.0-35.9) 02/01/19 05:20 RDW 16.8 % (11.9-15.9) H 02/01/19 05:20 Plt Count 118 K/MM3 (134-434) L 02/01/19 05:20 MPV 7.8 fl (7.5-11.1) 02/01/19 05:20 CMP Sodium 132 mmol/L (136-145) L 02/01/19 05:20 Potassium 3.9 mmol/L (3.5-5.1) 02/01/19 05:20 Chloride 96 mmol/L (98-107) L 02/01/19 05:20 Carbon Dioxide 31 mmol/L (21-32) 02/01/19 05:20 Anion Gap 6 MMOL/L (8-16) L 02/01/19 05:20 BUN 9.6 mg/dL (7-18) 02/01/19 05:20 Creatinine 0.4 mg/dL (0.55-1.3) L 02/01/19 05:20 Random Glucose 104 mg/dL (74-106) 02/01/19 05:20 Calcium 8.3 mg/dL (8.5-10.1) L 02/01/19 05:20 Total Bilirubin 0.6 mg/dL (0.2-1) 02/01/19 05:20 AST 30 U/L (15-37) 02/01/19 05:20 ALT 55 U/L (13-61) 02/01/19 05:20 Alkaline Phosphatase 185 U/L (45-117) H 02/01/19 05:20 Total Protein 6.2 g/dl (6.4-8.2) L 02/01/19 05:20 Albumin 2.2 g/dl (3.4-5.0) L 02/01/19 05:20 ASSESSMENT/PLAN: This is a 68 year old male with PMH significant for RUL squamous cell CA, diagnosed in August. He presented to the ER from Dr. Aviles's office on day of admission, after he was found to be anemic (H&H 7.9/25.0), and complains of B/L leg edema and generalized weakness over the past 1 week. He stated that he was visiting Dr. Aviles for a regular follow up appointment for his CA, and was due to start new medication (as per Dr. Aviles's note on 01/10, he has completed his course of Carboplatin and Paclitaxel, due to start Keytruda). He was found to be anemic and was referred to [facility] for a blood transfusion. He stated that the leg edema began gradually, over the past week, and he denies any associated trauma or recent illnesses. He also complained of urinary urgency and constipation, both of which began over the past week. He does not remember when he had his last bowel movement. He endorses subjective fevers over the past day , without any chills, diarrhea, dysuria, hematuria, nausea, vomiting, or diarrhea. He also complained of SOB, light headedness, dizziness, insomnia, and chest pain since his diagnosis in August. The chest pain is on the right side of his chest, 7/10 in intensity, described as a squeezing pain, constant in nature but varying in intensity, radiating to the posterior aspect of his right shoulder, with no recognizable aggravating or alleviating factors. He also complained of a productive cough with yellowish sputum for the past 5 months. He was recently discharged from [facility] on 01/08/19, he was admitted for post obstructive pneumonia and was treated with Zosyn, and discharged on a 1 week course of Augmentin. CT head had been ordered, modified to MRI brain, unclear if patient will be able to tolerate. May require sedative which can further consultation mental status. Reviewed patient's MRI of the brain from December 2018 and did not indicate any metastasis or significant structural abnormalities. More calm this AM, hepatic ultraround reviewed. Continue monitoring mental status, frequent reorientation, remains confused. Psych consult as per primary team. Heme/Onc following closely.
--- NOTE | 2019-02-02 09:19 | PN ---
Physical Exam: SUBJECTIVE: Patient seen and examined. He nods his head to signal he is in pain but cannot get clarification as to where. OBJECTIVE: Vital Signs Period Temp Pulse Resp BP Sys/Seo Pulse Ox Last 24 Hr 97.0 F-98.9 F 101-108 18-20 107-148/64-81 94-98 GENERAL: The patient is awake, not verbal, responds by shaking his head, is sitting in bed with his head down and eyes closed HEAD: Normal with no signs of trauma. EYES: PERRL, extraocular movements intact, sclera anicteric, conjunctiva clear. No ptosis. ENT: Ears normal, nares patent, moist mucous membranes. NECK: Trachea midline, full range of motion, supple. LUNGS: Expiratory wheezing bilaterally, heard better in upper air, no accessory muscle use. HEART: Regular rate and rhythm, S1, S2 without murmur, rub or gallop. ABDOMEN: Soft, nontender, nondistended, normoactive bowel sounds EXTREMITIES: 2+ pulses, warm, well-perfused, no edema. NEUROLOGICAL: Cranial nerves II through XII grossly intact. Normal speech, gait not observed. PSYCH: Normal mood, normal affect. SKIN: Warm, dry, normal turgor, no rashes or lesions noted on trunk or extremities Laboratory Results - last 24 hr 02/01/19 02/02/19 02/02/19 05:20 05:25 05:25 WBC 13.2 H RBC 3.11 L Hgb 9.1 L Hct 28.2 L MCV 90.4 MCH 29.1 MCHC 32.2 RDW 16.8 H Plt Count 109 L MPV 8.2 Absolute Neuts (auto) 12.5 H Neutrophils % 94.6 H Neutrophils % (Manual) 92.0 H Band Neutrophils % 2.0 Lymphocytes % 1.4 L D Lymphocytes % (Manual) 3.0 L D Monocytes % 3.8 Monocytes % (Manual) 3 L Eosinophils % 0.0 Eosinophils % (Manual) 0.0 Basophils % 0.2 Basophils % (Manual) 0.0 Myelocytes % (Man) 0 Promyelocytes % (Man) 0 Blast Cells % (Manual) 0 Nucleated RBC % 0 Metamyelocytes 0 Hypochromia 0 Platelet Estimate Decreased Polychromasia 0 Poikilocytosis 1+ Anisocytosis 1+ Microcytosis 1+ Macrocytosis 1+ Ovalocytes 1+ Sodium 133 L Potassium 3.4 L Chloride 96 L Carbon Dioxide 31 Anion Gap 6 L BUN 11.7 Creatinine 0.4 L Est GFR (CKD-EPI)AfAm 141.45 Est GFR (CKD-EPI)NonAf 122.04 Random Glucose 122 H Calcium 8.1 L Total Bilirubin 0.8 AST 28 ALT 47 Alkaline Phosphatase 189 H Total Protein 5.6 L Albumin 2.0 L Active Medications Generic Name Dose Route Start Last Admin Trade Name Freq PRN Reason Stop Dose Admin Acetaminophen 650 mg 01/27/19 15:22 01/31/19 09:43 Tylenol - PO 650 mg Q6H PRN Administration FEVER Albuterol/Ipratropium 1 amp 01/27/19 08:27 01/31/19 20:29 Duoneb - NEB 1 amp Q6H PRN Administration SHORTNESS OF BREATH Budesonide/Formoterol Fumarate 2 puff 01/28/19 10:00 02/01/19 21:58 Symbicort 80/4.5mcg - IH 2 puff BID SHIRA Administration Diphenhydramine HCl 25 mg 01/31/19 12:25 01/31/19 21:39 Benadryl - PO 25 mg Q6H PRN Administration FOR ITCHING Docusate Sodium 300 mg 01/24/19 22:00 02/01/19 21:57 Colace - PO 300 mg HS SHIRA Administration Enoxaparin Sodium 40 mg 01/25/19 10:00 02/01/19 11:18 Lovenox - SQ 40 mg DAILY [facility] Administration Ferrous Gluconate 324 mg 01/28/19 10:00 02/01/19 11:18 Fergon - PO 324 mg DAILY [facility] Administration Gabapentin 300 mg 01/24/19 17:53 02/01/19 19:53 Neurontin - PO 300 mg BID PRN Administration PAIN Guaifenesin 10 ml 01/29/19 14:40 01/31/19 21:38 Robitussin Dm - PO 10 ml Q6H PRN Administration COUGH Sodium Chloride 1,000 mls @ 75 mls/hr 01/24/19 17:53 02/02/19 04:32 Normal Saline - IV 75 mls/hr ASDIR SHIRA Administration Lidocaine 1 patch 01/27/19 12:30 02/01/19 11:18 Lidoderm Patch - TP 1 patch DAILY [facility] Administration Methadone HCl 10 mg 01/25/19 00:15 02/02/19 01:07 Dolophine - PO 10 mg Q12H [facility]A Administration Metoprolol Tartrate 5 mg 01/24/19 16:15 01/25/19 16:12 Lopressor Injection - IVPUSH 5 mg Q6H PRN Administration TACHYCARDIA Metoprolol Tartrate 50 mg 01/27/19 11:01 02/01/19 21:57 Lopressor - PO 50 mg BID SH[facility]A Administration Miscellaneous 1 each 01/27/19 23:00 02/01/19 21:57 Lidoderm Patch Removal MC 1 each DAILY@2200 SH[facility]A Administration Pantoprazole Sodium 40 mg 01/28/19 10:00 02/01/19 11:18 Protonix - PO 40 mg DAILY [facility] Administration Polyethylene Glycol 17 gm 01/24/19 22:00 02/01/19 22:14 Miralax (For Daily Use) - PO 17 gm BID [facility]A Administration Potassium Chloride 40 meq 02/02/19 10:00 K-Dur - PO 02/02/19 22:01 BID SHIRA Prednisone 40 mg 02/01/19 10:00 02/01/19 11:18 Deltasone - PO 40 mg DAILY [facility] Administration Tamsulosin HCl 0.4 mg 01/28/19 10:00 02/01/19 21:57 Flomax - PO 0.4 mg BID SH[facility]A Administration ASSESSMENT/PLAN: 68 y/o male with right squamous cell carcinoma, SBO s/p bowel resection, polysubstance use, and chronic pain syndrome on methadone sent to ED for symptomatic anemia. Pt is known to Dr. Aviles and was experiencing SOB, tiredness , and lethargy, with office Hb 7.4. Pt received PRBC in ED. SVT noted and given adenosine, lopressor, and DC cardioverted into NSR. Pt has continued AMS and generalized pain. #sepsis Source is uncertain. No PNA on CXR, urine and blood cultures negative x2. Afebrile now. Tmax 100.8 yesterday. Leukocytosis steady around 13. CXR 01/31- RUL cavitary mass, with possible superimposed infiltrate. -ID monitoring -Lopressor 50mg BID, IV PRN tachycardia #acute encephalopathy, toxic vs metabolic Waxing and waning delirium. MRI in December was negative for mets or acute pathology. -psych- Seroquel 50mg BID -riya discontinued -MRI when patient cooperative -neuro monitoring #chronic pain syndrome likely 2/2 cancer No bone mets on recent imaging but elevated alk phos. -methadone 10mg BID -oxycodone 5mg PRN, benadryl PRN itching -gabapentin -tylenol -lidoderm patch for back -pain management- can consider changing gabapentin dosage to 100mg BID #anemia of chronic disease with iron-deficiency Hemodynamically stable with no signs of bleeding. Hb 9.1. s/p 1 unit PRBC. -iron supplementation -routine CBC #paroxysmal SVT Hr 100s today. TSH normal. Echo- trace TR, EF 60-65%. -cards monitoring -discontinue tele #squamous cell carcinoma of right lung MRI brain 12/13/18 showed no mets. -Symbicort -Prednisone taper -Robitussin PRN cough -heme/onc- MRI recommended when pt cooperative #transaminitis Alk phos elevated but trending down. U/S limited study but no clear evidence of liver disease -recommended CT with contrast -continue to monitor FEN NS 75mL/hr monitor electrolytes regular diet DVT Ppx Lovenox GI Ppx Protonix Dispo med/surg Visit type - Emergency Visit Emergency Visit: Yes ED Registration Date: 01/23/19 Care time: The patient presented to the Emergency Department on the above date and was hospitalized for further evaluation of their emergent condition. - New Patient This patient is new to me today: No - Critical Care Critical Care patient: No - Discharge Referral Referred to [facility] No ATTENDING PHYSICIAN STATEMENT I saw and evaluated the patient. I reviewed the resident's note and discussed the case with the resident. I agree with the resident's findings and plan as documented. SUBJECTIVE: OBJECTIVE: ASSESSMENT AND PLAN:
[2019-02-02] MEDS: TAMSULOSIN HCL 0.4 MG CAP PO SCH ×2 (10:42→21:03)
[2019-02-02] MEDS: GABAPENTIN 300 MG CAPSULE (FP) PO PRN (10:43)
[2019-02-02] MEDS: METOPROLOL TARTRATE 25 MG TABLET (FP) PO SCH ×2 (10:43→21:01)
[2019-02-02] MEDS: predniSONE 20 MG TABLET (UD) PO SCH (10:43)
[2019-02-02] MEDS: POTASSIUM CHLORIDE TABS 20 MEQ TABLET.ER (FP) PO SCH ×2 (10:43→21:02)
[2019-02-02] MEDS: PANTOPRAZOLE 40 MG TABLET (FP) PO SCH (10:43)
[2019-02-02] MEDS: FERROUS GLUCONATE 324 MG TAB (FP) PO SCH (10:44)
[2019-02-02] MEDS: POLYETHYLENE GLYCOL 3350 119 GM BTL PO SCH ×2 (10:44→21:03)
[2019-02-02] MEDS: LIDOCAINE 5% TOPICAL PATCH TP SCH (10:44)
[2019-02-02] MEDS: ENOXAPARIN NA (PORCINE) 40 MG/0.4 ML DISP.SYRIN SQ SCH (10:44)
[2019-02-02] MEDS: BUDESONIDE/FORMETEROL FUMARATE 80/4.5 mcg INHALER IH SCH ×2 (10:45→21:04)
[2019-02-02] MEDS: guaiFENesin/D-METHORPHAN HB 10 ML UNIT-DOSE CUPS PO PRN (10:56)
[2019-02-02] MEDS ORDERED: MORPHINE SULFATE 2 MG/ML VIAL IVPUSH ONE (11:21)
[2019-02-02] MEDS ORDERED: QUEtiapine FUMARATE 25 MG TABLET (FP) PO ONE (12:00)
--- NOTE | 2019-02-02 12:28 | PN ---
Progress Note, Physician History of Present Illness: Confused sitting in riya vest. Remains in NSR. - Current Medication List Current Medications: Active Medications Acetaminophen (Tylenol -) 650 mg PO Q6H PRN PRN Reason: FEVER Last Admin: 01/31/19 09:43 Dose: 650 mg Albuterol/Ipratropium (Duoneb -) 1 amp NEB Q6H PRN PRN Reason: SHORTNESS OF BREATH Last Admin: 01/31/19 20:29 Dose: 1 amp Budesonide/Formoterol Fumarate (Symbicort 80/4.5mcg -) 2 puff IH BID [facility] Last Admin: 02/02/19 10:45 Dose: Not Given Diphenhydramine HCl (Benadryl -) 25 mg PO Q6H PRN PRN Reason: FOR ITCHING Last Admin: 01/31/19 21:39 Dose: 25 mg Docusate Sodium (Colace -) 300 mg PO HS [facility] Last Admin: 02/01/19 21:57 Dose: 300 mg Enoxaparin Sodium (Lovenox -) 40 mg SQ DAILY [facility] Last Admin: 02/02/19 10:44 Dose: 40 mg Ferrous Gluconate (Fergon -) 324 mg PO DAILY [facility] Last Admin: 02/02/19 10:44 Dose: 324 mg Gabapentin (Neurontin -) 300 mg PO BID PRN PRN Reason: PAIN Last Admin: 02/02/19 10:43 Dose: 300 mg Guaifenesin (Robitussin Dm -) 10 ml PO Q6H PRN PRN Reason: COUGH Last Admin: 02/02/19 10:56 Dose: 10 ml Sodium Chloride (Normal Saline -) 1,000 mls @ 75 mls/hr IV ASDIR [facility] Last Admin: 02/02/19 04:32 Dose: 75 mls/hr Lidocaine (Lidoderm Patch -) 1 patch TP DAILY [facility] Last Admin: 02/02/19 10:44 Dose: 1 patch Methadone HCl (Dolophine -) 10 mg PO Q12H [facility] Last Admin: 02/02/19 01:07 Dose: 10 mg Metoprolol Tartrate (Lopressor Injection -) 5 mg IVPUSH Q6H PRN PRN Reason: TACHYCARDIA Last Admin: 01/25/19 16:12 Dose: 5 mg Metoprolol Tartrate (Lopressor -) 50 mg PO BID [facility] Last Admin: 02/02/19 10:43 Dose: 50 mg Miscellaneous (Lidoderm Patch Removal) 1 each MC DAILY@2200 [facility] Last Admin: 02/01/19 21:57 Dose: 1 each Pantoprazole Sodium (Protonix -) 40 mg PO DAILY [facility] Last Admin: 02/02/19 10:43 Dose: 40 mg Polyethylene Glycol (Miralax (For Daily Use) -) 17 gm PO BID [facility] Last Admin: 02/02/19 10:44 Dose: Not Given Potassium Chloride (K-Dur -) 40 meq PO BID [facility] Stop: 02/02/19 22:01 Last Admin: 02/02/19 10:43 Dose: 40 meq Prednisone (Deltasone -) 40 mg PO DAILY [facility] Last Admin: 02/02/19 10:43 Dose: 40 mg Tamsulosin HCl (Flomax -) 0.4 mg PO BID [facility] Last Admin: 02/02/19 10:42 Dose: 0.4 mg - Objective Vital Signs: Vital Signs Temperature 98.9 F 02/02/19 07:56 Pulse Rate 107 H 02/02/19 07:56 Respiratory Rate 18 02/02/19 07:56 Blood Pressure 132/74 02/02/19 07:56 O2 Sat by Pulse Oximetry (%) 98 02/02/19 08:01 Constitutional: Yes: No Distress, Calm Neck: Yes: Supple Cardiovascular: Yes: Regular Rate and Rhythm Respiratory: Yes: Regular, CTA Bilaterally Gastrointestinal: Yes: Normal Bowel Sounds, Soft Edema: No Labs: CBC, BMP 02/02/19 05:25 02/02/19 05:25 Problem List - Problems (1) Anemia Code(s): D64.9 - ANEMIA, UNSPECIFIED Qualifiers: Anemia type: unspecified type Qualified Code(s): D64.9 - Anemia, unspecified (2) Generalized weakness Code(s): R53.1 - WEAKNESS (3) Hyponatremia Code(s): E87.1 - HYPO-OSMOLALITY AND HYPONATREMIA (4) Lung cancer Code(s): C34.90 - MALIGNANT NEOPLASM OF UNSP PART OF UNSP BRONCHUS OR LUNG (5) PSVT (paroxysmal supraventricular tachycardia) Code(s): I47.1 - SUPRAVENTRICULAR TACHYCARDIA Assessment/Plan 01/26/2019 Echocardiography: Normal LV and RV size and fxn tr TR 1. PSVT s/p adenosine and cardioversion to sinus tachycardia 2. Advanced NSCLC (Squamous cell CA of lung) s/p chemotherapy and radiation therapy 3. History of pneumonia 4. Anemia s/p PRBC transfusion 5. Generalized weakness due to above 6. 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 Hyponatremia resolved 8. Chronic Pain/Methadone Maintenance PLAN: 1. Continue Metoprolol 50 bid 2. Removed telemetry monitors 3. Transfuse PRBC as needed and follow CBC 4. Monitor NA and correct 5. DVT and Gi prophylaxis 6. Completed empiric antibiotic coverage, oral steroid taper, BD and O2 as needed
[2019-02-02 12:34] LABS: ANISOCYTOSIS 1+; MACROCYTOSIS 0; PLATELET ESTIMATE DECREASED
--- NOTE | 2019-02-02 12:39 | CON.PSY ---
Psychiatry Consult Chief Complaint: 68 Dez old male with stage 4 Lung CA seen for acute agitatioon secondary ton severe pain. Has been on many pain meds. Patient has been agitated and unable to sleep. Sitting in bed yelling that he is in Pain. Patient slept well last night on [place]. Symptoms: reports: Anxiety, Inability to Control Temper - Previous Psychiatric Treatment Outpatient: None - Previous Substance Abuse Treatment Outpatient: None Inpatient: None - Current Medications Current Medications: Active Medications Acetaminophen (Tylenol -) 650 mg PO Q6H PRN PRN Reason: FEVER Last Admin: 01/31/19 09:43 Dose: 650 mg Albuterol/Ipratropium (Duoneb -) 1 amp NEB Q6H PRN PRN Reason: SHORTNESS OF BREATH Last Admin: 01/31/19 20:29 Dose: 1 amp Budesonide/Formoterol Fumarate (Symbicort 80/4.5mcg -) 2 puff IH BID SHIRA Last Admin: 02/02/19 10:45 Dose: Not Given Diphenhydramine HCl (Benadryl -) 25 mg PO Q6H PRN PRN Reason: FOR ITCHING Last Admin: 01/31/19 21:39 Dose: 25 mg Docusate Sodium (Colace -) 300 mg PO HS SHIRA Last Admin: 02/01/19 21:57 Dose: 300 mg Enoxaparin Sodium (Lovenox -) 40 mg SQ DAILY SHIRA Last Admin: 02/02/19 10:44 Dose: 40 mg Ferrous Gluconate (Fergon -) 324 mg PO DAILY SHIRA Last Admin: 02/02/19 10:44 Dose: 324 mg Gabapentin (Neurontin -) 300 mg PO BID PRN PRN Reason: PAIN Last Admin: 02/02/19 10:43 Dose: 300 mg Guaifenesin (Robitussin Dm -) 10 ml PO Q6H PRN PRN Reason: COUGH Last Admin: 02/02/19 10:56 Dose: 10 ml Sodium Chloride (Normal Saline -) 1,000 mls @ 75 mls/hr IV ASDIR SHIRA Last Admin: 02/02/19 04:32 Dose: 75 mls/hr Lidocaine (Lidoderm Patch -) 1 patch TP DAILY [facility] Last Admin: 02/02/19 10:44 Dose: 1 patch Methadone HCl (Dolophine -) 10 mg PO Q12H [facility] Last Admin: 02/02/19 01:07 Dose: 10 mg Metoprolol Tartrate (Lopressor Injection -) 5 mg IVPUSH Q6H PRN PRN Reason: TACHYCARDIA Last Admin: 01/25/19 16:12 Dose: 5 mg Metoprolol Tartrate (Lopressor -) 50 mg PO BID [facility] Last Admin: 02/02/19 10:43 Dose: 50 mg Miscellaneous (Lidoderm Patch Removal) 1 each MC DAILY@2200 [facility] Last Admin: 02/01/19 21:57 Dose: 1 each Pantoprazole Sodium (Protonix -) 40 mg PO DAILY [facility] Last Admin: 02/02/19 10:43 Dose: 40 mg Polyethylene Glycol (Miralax (For Daily Use) -) 17 gm PO BID [facility] Last Admin: 02/02/19 10:44 Dose: Not Given Potassium Chloride (K-Dur -) 40 meq PO BID [facility] Stop: 02/02/19 22:01 Last Admin: 02/02/19 10:43 Dose: 40 meq Prednisone (Deltasone -) 40 mg PO DAILY [facility] Last Admin: 02/02/19 10:43 Dose: 40 mg Tamsulosin HCl (Flomax -) 0.4 mg PO BID [facility] Last Admin: 02/02/19 10:42 Dose: 0.4 mg - Allergies Allergies: Allergies Allergy/AdvReac Type Severity Reaction Status Date / Time No Known Allergies Allergy Verified 01/23/19 19:29 - Current Living Status Usual Living Arrangement: Alone - Current Mental Status Evaluation Appearance: Disheveled Attitude: Guarded - Affect Affect: Constrictive Appropriateness: Not Appropriate - Mood Mood: Irritable - Speech/Language Expressive: Coherent - Psychomotor Activity Psychomotor Activity: Agitated - Thought Process Thought Process: Circumstantial - Thought Content Hallucinations: Absent Delusions: Absent - Self Perception Self Perception: No Impairment - Cognition Attention: Alert Memory, Short Term: 2/3 Memory, Remote with Promptin/3 - Concentration Serial Sevens Intact: No Simple Calculations Intact: Yes - Abstraction Proverb Interpretation: Impaired Judgement: Moderately Impaired - Insight Insight: Impaired - Impulse Control Impulse Control: Moderately Impaired - Suicidal Ideation Suicidal Ideation: No - Homicidal Ideation Homicidal Ideation: No Assessment/Plan 1) Seroquel 50 mg po bid for agiation.
--- NOTE | 2019-02-02 13:43 | PN ---
Progress Note (short form) - Note Progress Note: PULMONARY Confused but denies shortness of breath. Vital Signs Period Temp Pulse Resp BP Sys/Seo Pulse Ox Last 24 Hr 97.0 F-98.9 F 101-108 18-20 107-148/64-81 94-98 Gen: NAD at rest Heart: RRR Lung: decreased breath sounds at the bases Abd: soft, nontender Ext: no edema CBC, BMP 02/02/19 05:25 02/02/19 05:25 Active Medications Acetaminophen (Tylenol -) 650 mg PO Q6H PRN PRN Reason: FEVER Last Admin: 01/31/19 09:43 Dose: 650 mg Albuterol/Ipratropium (Duoneb -) 1 amp NEB Q6H PRN PRN Reason: SHORTNESS OF BREATH Last Admin: 01/31/19 20:29 Dose: 1 amp Budesonide/Formoterol Fumarate (Symbicort 80/4.5mcg -) 2 puff IH BID [facility] Last Admin: 02/02/19 10:45 Dose: Not Given Diphenhydramine HCl (Benadryl -) 25 mg PO Q6H PRN PRN Reason: FOR ITCHING Last Admin: 01/31/19 21:39 Dose: 25 mg Docusate Sodium (Colace -) 300 mg PO HS [facility] Last Admin: 02/01/19 21:57 Dose: 300 mg Enoxaparin Sodium (Lovenox -) 40 mg SQ DAILY [facility] Last Admin: 02/02/19 10:44 Dose: 40 mg Ferrous Gluconate (Fergon -) 324 mg PO DAILY [facility] Last Admin: 02/02/19 10:44 Dose: 324 mg Gabapentin (Neurontin -) 300 mg PO BID PRN PRN Reason: PAIN Last Admin: 02/02/19 10:43 Dose: 300 mg Guaifenesin (Robitussin Dm -) 10 ml PO Q6H PRN PRN Reason: COUGH Last Admin: 02/02/19 10:56 Dose: 10 ml Sodium Chloride (Normal Saline -) 1,000 mls @ 75 mls/hr IV ASDIR SHIRA Last Admin: 02/02/19 04:32 Dose: 75 mls/hr Lidocaine (Lidoderm Patch -) 1 patch TP DAILY [facility] Last Admin: 02/02/19 10:44 Dose: 1 patch Methadone HCl (Dolophine -) 10 mg PO Q12H [facility] Last Admin: 02/02/19 01:07 Dose: 10 mg Metoprolol Tartrate (Lopressor Injection -) 5 mg IVPUSH Q6H PRN PRN Reason: TACHYCARDIA Last Admin: 01/25/19 16:12 Dose: 5 mg Metoprolol Tartrate (Lopressor -) 50 mg PO BID [facility] Last Admin: 02/02/19 10:43 Dose: 50 mg Miscellaneous (Lidoderm Patch Removal) 1 each MC DAILY@2200 [facility] Last Admin: 02/01/19 21:57 Dose: 1 each Pantoprazole Sodium (Protonix -) 40 mg PO DAILY [facility] Last Admin: 02/02/19 10:43 Dose: 40 mg Polyethylene Glycol (Miralax (For Daily Use) -) 17 gm PO BID [facility] Last Admin: 02/02/19 10:44 Dose: Not Given Potassium Chloride (K-Dur -) 40 meq PO BID [facility] Stop: 02/02/19 22:01 Last Admin: 02/02/19 10:43 Dose: 40 meq Prednisone (Deltasone -) 40 mg PO DAILY [facility] Last Admin: 02/02/19 10:43 Dose: 40 mg Quetiapine Fumarate (Seroquel -) 50 mg PO BID [facility] Tamsulosin HCl (Flomax -) 0.4 mg PO BID [facility] Last Admin: 02/02/19 10:42 Dose: 0.4 mg A/P SVT s/p DCCV Advanced NSCLC (Squamous cell) s/p chemo Chronic Pain/Methadone Maintenance Anemia Smoker - rate control - replete lytes - taper off prednisone - inhaled bronchodilators as needed - DVT prophylaxis
--- NOTE | 2019-02-02 14:23 | PN ---
Teaching Attending Note Name of Resident: Sherry Kapadia ATTENDING PHYSICIAN STATEMENT I saw and evaluated the patient. I reviewed the resident's note and discussed the case with the resident. I agree with the resident's findings and plan as documented. SUBJECTIVE: More oriented today. Complains of R sided chest discomfort. No fever /chills. Slept better with Seroquel. OBJECTIVE: Fever resolved - Last fever 01/31 10am Tmax 100.8, Hemodynamically Stable. Improving mental status, now AAO x 3. Last Vital Signs Temp Pulse Resp BP Pulse Ox 97.8 F 124 H 18 131/81 98 02/02/19 13:49 02/02/19 13:49 02/02/19 13:49 02/02/19 13:49 02/02/19 08:01 HEART: S1S2, RRR LUNGS: no wheeze, decreased air entry at bases. ABDOMEN: Soft, non-tender, normal BS EXTREMITIES: Edema ++, no calf tenderness. NEURO: AAO x 3. Tone/Power normal all 4 extremities. Laboratory Results - last 24 hr 02/02/19 02/02/19 05:25 05:25 WBC 13.2 H RBC 3.11 L Hgb 9.1 L Hct 28.2 L MCV 90.4 MCH 29.1 MCHC 32.2 RDW 16.8 H Plt Count 109 L MPV 8.2 Absolute Neuts (auto) 12.5 H Neutrophils % 94.6 H Neutrophils % (Manual) 92.8 H Band Neutrophils % 3.1 Lymphocytes % 1.4 L D Lymphocytes % (Manual) 1.0 L D Monocytes % 3.8 Monocytes % (Manual) 3 L Eosinophils % 0.0 Eosinophils % (Manual) 0.0 Basophils % 0.2 Basophils % (Manual) 0.0 Myelocytes % (Man) 0 Promyelocytes % (Man) 0 Blast Cells % (Manual) 0 Nucleated RBC % 0 Metamyelocytes 0 Hypochromia 0 Platelet Estimate Decreased Polychromasia 0 Poikilocytosis 1+ Anisocytosis 1+ Microcytosis 0 Macrocytosis 0 Fragmented RBCs 1+ Sodium 133 L Potassium 3.4 L Chloride 96 L Carbon Dioxide 31 Anion Gap 6 L BUN 11.7 Creatinine 0.4 L Est GFR (CKD-EPI)AfAm 141.45 Est GFR (CKD-EPI)NonAf 122.04 Random Glucose 122 H Calcium 8.1 L Total Bilirubin 0.8 AST 28 ALT 47 Alkaline Phosphatase 189 H Total Protein 5.6 L Albumin 2.0 L Current Medications Generic Name Dose Route Start Last Admin Trade Name Frecuate PRN Reason Stop Dose Admin Acetaminophen 650 mg 01/27/19 15:22 01/31/19 09:43 Tylenol - PO 650 mg Q6H PRN Administration FEVER Albuterol/Ipratropium 1 amp 01/27/19 08:27 01/31/19 20:29 Duoneb - NEB 1 amp Q6H PRN Administration SHORTNESS OF BREATH Budesonide/Formoterol Fumarate 2 puff 01/28/19 10:00 02/02/19 10:45 Symbicort 80/4.5mcg - IH Not Given BID SHIRA Diphenhydramine HCl 25 mg 01/31/19 12:25 01/31/19 21:39 Benadryl - PO 25 mg Q6H PRN Administration FOR ITCHING Docusate Sodium 300 mg 01/24/19 22:00 02/01/19 21:57 Colace - PO 300 mg HS SHIRA Administration Enoxaparin Sodium 40 mg 01/25/19 10:00 02/02/19 10:44 Lovenox - SQ 40 mg DAILY SHIRA Administration Ferrous Gluconate 324 mg 01/28/19 10:00 02/02/19 10:44 Fergon - PO 324 mg DAILY SHIRA Administration Gabapentin 300 mg 01/24/19 17:53 02/02/19 10:43 Neurontin - PO 300 mg BID PRN Administration PAIN Guaifenesin 10 ml 01/29/19 14:40 02/02/19 10:56 Robitussin Dm - PO 10 ml Q6H PRN Administration COUGH Sodium Chloride 1,000 mls @ 75 mls/hr 01/24/19 17:53 02/02/19 04:32 Normal Saline - IV 75 mls/hr ASDIR SHIRA Administration Lidocaine 1 patch 01/27/19 12:30 02/02/19 10:44 Lidoderm Patch - TP 1 patch DAILY [facility]A Administration Methadone HCl 10 mg 01/25/19 00:15 02/02/19 13:47 Dolophine - PO 10 mg Q12H SHIRA Administration Metoprolol Tartrate 5 mg 01/24/19 16:15 01/25/19 16:12 Lopressor Injection - IVPUSH 5 mg Q6H PRN Administration TACHYCARDIA Metoprolol Tartrate 50 mg 01/27/19 11:01 02/02/19 10:43 Lopressor - PO 50 mg BID SHIRA Administration Miscellaneous 1 each 01/27/19 23:00 02/01/19 21:57 Lidoderm Patch Removal MC 1 each DAILY@2200 SH[facility]A Administration Pantoprazole Sodium 40 mg 01/28/19 10:00 02/02/19 10:43 Protonix - PO 40 mg DAILY [facility]A Administration Polyethylene Glycol 17 gm 01/24/19 22:00 02/02/19 10:44 Miralax (For Daily Use) - PO Not Given BID SHIRA Potassium Chloride 40 meq 02/02/19 10:00 02/02/19 10:43 K-Dur - PO 02/02/19 22:01 40 meq BID SHIRA Administration Prednisone 40 mg 02/01/19 10:00 02/02/19 10:43 Deltasone - PO 40 mg DAILY SHIRA Administration Quetiapine Fumarate 50 mg 02/02/19 22:00 Seroquel - PO BID SHIRA Tamsulosin HCl 0.4 mg 01/28/19 10:00 02/02/19 10:42 Flomax - PO 0.4 mg BID SHIRA Administration Home Medications Medication Instructions Recorded Docusate Sodium [Colace] 100 mg PO TID 01/05/19 Gabapentin 300 mg PO Q8H PRN 01/05/19 Oxycodone HCl 5 mg PO Q4H PRN 01/05/19 Pantoprazole Sodium [Protonix] 40 mg PO DAILY 01/05/19 Tamsulosin HCl 0.4 mg PO BID 01/05/19 Cannabidiol (Cbd) Extract 0.2 ml PO BID 01/06/19 Ferrous Gluconate [Fergon -] 324 mg PO DAILY #30 tab 01/08/19 Methadone [Dolophine -] 10 mg PO Q12H 01/08/19 Azithromycin [Zithromax 250mg 250 mg PO DAILY 01/25/19 Tablets -] Guaifenesin Dm [Robitussin Dm -] 10 ml PO Q6H PRN 01/25/19 Salmeterol/Fluticasone [Advair 250 mcg PO PRN 01/25/19 100Mcg/50Mcg -] ASSESSMENT AND PLAN: 68 year old man with a history of Squamous cell lung cancer, bowel resection secondary to obstruction, tobacco use, alcohol use, chronic pain syndrome, opioid dependence on methadone, BPH, sent by Dr. Aviles to the ED for weakness, leg edema, and anemia. 1. Sepsis, source unclear. Fever resolved Initial/Repeat septic screen negative CXR - RUL cavitary lesion (known), no new consolidation. ID following. Not on Abx. 2. Acute Encephalopathy - Metabolic versus Toxic - improving On Methadone. Oxycodone held Pain management consulted for rationalization of pain medication regimen - recommend spinal stimulator but platelets low and will need to lay still for MRI C/T Spine. MRI Brain 12/[address] Brain 01/06 - negative for significant acute findings Neurology following. Neuro and Oncology recommend Brain imaging. MRI - unable to obtain thusfar due to non-compliance of patient. Will continue trial of Seroquel 25mg. 3. Paroxysmal supraventricular tachycardia - resolved s/p Adenosine, s/p Cardioversion - Continue Lopressor. Cardiology following. 4. Acute Exacerbation of COPD - improving. IV solumedrol transitioned to oral prednisone - continue Taper. Continue Duonebs. 5. Advanced Squamous cell Lung Cancer - s/p weekly carbo/taxol, s/p 1 cycle pembrolizumab - further management as per Oncology. 6. Anemia secondary to chronic disease/iron deficiency - Hematology/Oncology following - Continue ferrous gluconate 7. Chronic pain syndrome - Continue Methadone, Lidoderm patch, Neurontin pending further Pain management input. Oxy PRN reserved for breakthrough due to its negative effect on patient's mental status. 8. BPH - Continue Flomax DVT Px - Lovenox SQ
[2019-02-02] MEDS: ACETAMINOPHEN 325 MG TABLET (FP) PO PRN ×2 (14:28→21:02)
[2019-02-02] MEDS ORDERED: PT OWN MED DRAWER 7, Y5N ONE (19:33)
[2019-02-02] MEDS ORDERED: QUEtiapine FUMARATE 25 MG TABLET (FP) ONE (20:53)
[2019-02-02] MEDS: DOCUSATE SODIUM 100 MG CAPSULE (FP) PO SCH (21:01)
[2019-02-02] MEDS: LIDOCAINE PATCH REMOVAL MC SCH (21:03)
[2019-02-02] MEDS: QUEtiapine FUMARATE 50 MG TABLET PO SCH (21:04)
--- NOTE | 2019-02-02 21:55 | PN ---
Progress Note (short form) - Note Progress Note: PAtient seen and examined Confused Following simple commands AFVSS Cor: RSR, No murmurs, No gallops Lungs: decreased at bases Abd: Soft, Normal bowel sounds, No organomegaly Ext:No significant edema Labs/Meds reviewed A/P Pt is a 68 y/o M with Rt. lung squamous cell cancer, s/p weekly carbo/taxol, s/ p 1 cycle pembrolizumab, comes in with ,SVT, anemia Also severe Rt. upperchest/shoulder pain--on methadone/oxycodone/marinol On steroids Low suspicion for PNA per pulmonary confusion--? pain meds ? steroids 12/12/18 brain MRI is negative neuro /psych follow up ? palliative care consult
[2019-02-03] MEDS: METHADONE HCL 10 MG TABLET PO SCH ×2 (00:27→12:32)
--- NOTE | 2019-02-03 08:33 | PN ---
Progress Note (short form) - Note Progress Note: Neurology HISTORY OF PRESENT ILLNESS: This is a 68 year old male with PMH significant for RUL squamous cell CA, diagnosed in August. He presented to the ER from Dr. Aviles's office on day of admission, after he was found to be anemic (H&H 7.9/25.0), and complains of B/L leg edema and generalized weakness over the past 1 week. He stated that he was visiting Dr. Aviles for a regular follow up appointment for his CA, and was due to start new medication (as per Dr. Aviles's note on 01/10, he has completed his course of Carboplatin and Paclitaxel, due to start Keytruda). He was found to be anemic and was referred to [facility] for a blood transfusion. He stated that the leg edema began gradually, over the past week, and he denies any associated trauma or recent illnesses. He also complained of urinary urgency and constipation, both of which began over the past week. He does not remember when he had his last bowel movement. He endorsed subjective fevers over the past day , without any chills, diarrhea, dysuria, hematuria, nausea, vomiting, or diarrhea. He also complained of SOB, light headedness, dizziness, insomnia, and chest pain since his diagnosis in August. The chest pain is on the right side of his chest, 7/10 in intensity, described as a squeezing pain, constant in nature but varying in intensity, radiating to the posterior aspect of his right shoulder, with no recognizable aggravating or alleviating factors. He also complained of a productive cough with yellowish sputum for the past 5 months. He was recently discharged from [facility] on 01/08/19, he was admitted for post obstructive pneumonia and was treated with Zosyn, and discharged on a 1 week course of Augmentin. Imaging pending, not yet completed. More calm this morning , psych consult noted, Seroquel 50mg twice a day recommended. No objection to this. Allergies No Known Allergies Allergy (Verified 01/23/19 19:29) Active Medications Acetaminophen (Tylenol -) 650 mg PO Q6H PRN PRN Reason: FEVER Last Admin: 02/02/19 21:02 Dose: 650 mg Albuterol/Ipratropium (Duoneb -) 1 amp NEB Q6H PRN PRN Reason: SHORTNESS OF BREATH Last Admin: 01/31/19 20:29 Dose: 1 amp Budesonide/Formoterol Fumarate (Symbicort 80/4.5mcg -) 2 puff IH BID [facility] Last Admin: 02/02/19 21:04 Dose: 2 puff Diphenhydramine HCl (Benadryl -) 25 mg PO Q6H PRN PRN Reason: FOR ITCHING Last Admin: 01/31/19 21:39 Dose: 25 mg Docusate Sodium (Colace -) 300 mg PO HS [facility] Last Admin: 02/02/19 21:01 Dose: 300 mg Enoxaparin Sodium (Lovenox -) 40 mg SQ DAILY [facility] Last Admin: 02/02/19 10:44 Dose: 40 mg Ferrous Gluconate (Fergon -) 324 mg PO DAILY [facility] Last Admin: 02/02/19 10:44 Dose: 324 mg Gabapentin (Neurontin -) 300 mg PO BID PRN PRN Reason: PAIN Last Admin: 02/02/19 10:43 Dose: 300 mg Guaifenesin (Robitussin Dm -) 10 ml PO Q6H PRN PRN Reason: COUGH Last Admin: 02/02/19 10:56 Dose: 10 ml Lidocaine (Lidoderm Patch -) 1 patch TP DAILY [facility] Last Admin: 02/02/19 10:44 Dose: 1 patch Methadone HCl (Dolophine -) 10 mg PO Q12H [facility] Last Admin: 02/03/19 00:27 Dose: 10 mg Metoprolol Tartrate (Lopressor Injection -) 5 mg IVPUSH Q6H PRN PRN Reason: TACHYCARDIA Last Admin: 01/25/19 16:12 Dose: 5 mg Metoprolol Tartrate (Lopressor -) 50 mg PO BID [facility] Last Admin: 02/02/19 21:01 Dose: 50 mg Miscellaneous (Lidoderm Patch Removal) 1 each MC DAILY@2200 [facility] Last Admin: 02/02/19 21:03 Dose: 1 each Pantoprazole Sodium (Protonix -) 40 mg PO DAILY [facility] Last Admin: 02/02/19 10:43 Dose: 40 mg Polyethylene Glycol (Miralax (For Daily Use) -) 17 gm PO BID [facility] Last Admin: 02/02/19 21:03 Dose: 17 gm Prednisone (Deltasone -) 40 mg PO DAILY [facility] Last Admin: 02/02/19 10:43 Dose: 40 mg Quetiapine Fumarate (Seroquel -) 50 mg PO BID [facility] Last Admin: 02/02/19 21:04 Dose: 50 mg Tamsulosin HCl (Flomax -) 0.4 mg PO BID [facility] Last Admin: 02/02/19 21:03 Dose: 0.4 mg PHYSICAL EXAMINATION Vital Signs Period Temp Pulse Resp BP Sys/Seo Pulse Ox Last 24 Hr 97.5 F-98.6 F 86-124 18-18 107-131/55-81 95 GENERAL: Awake, alert, and fully oriented, in no acute distress. HEAD: Normal with no signs of trauma. EYES: Pupils equal, round and reactive to light, extraocular movements intact, sclera anicteric, conjunctiva clear. No lid lag. EARS, NOSE, THROAT: Ears normal, nares patent, oropharynx clear without exudates. Moist mucous membranes. NECK: Normal range of motion, supple without lymphadenopathy, JVD, or masses. LUNGS: decreased air entry on the right, expiratory wheeze B/L HEART: elevated rate, regular rhythm, normal S1 and S2 without murmur, rub or gallop. ABDOMEN: Soft, nontender, not distended, normoactive bowel sounds, no guarding, no rebound, no masses. No hepatomegaly or splenomegaly. MUSCULOSKELETAL: Normal range of motion at all joints. No bony deformities or tenderness. No CVA tenderness. UPPER EXTREMITIES: 2+ pulses, warm, well-perfused. No cyanosis. No clubbing. No peripheral edema. LOWER EXTREMITIES: B/L pitting edema 2+, more on the right NEUROLOGICAL: Cranial nerves II-XII intact. Normal speech. Normal gait. PSYCHIATRIC: Cooperative. Good eye contact. Appropriate mood and affect. SKIN: Warm, dry, normal turgor, no rashes or lesions noted, normal capillary refill. CBCD WBC 13.2 K/mm3 (4.0-10.0) H 02/02/19 05:25 RBC 3.11 M/mm3 (4.00-5.60) L 02/02/19 05:25 Hgb 9.1 GM/dL (11.7-16.9) L 02/02/19 05:25 Hct 28.2 % (35.4-49) L 02/02/19 05:25 MCV 90.4 fl (80-96) 02/02/19 05:25 MCHC 32.2 g/dl (32.0-35.9) 02/02/19 05:25 RDW 16.8 % (11.9-15.9) H 02/02/19 05:25 Plt Count 109 K/MM3 (134-434) L 02/02/19 05:25 MPV 8.2 fl (7.5-11.1) 02/02/19 05:25 CMP Sodium 133 mmol/L (136-145) L 02/02/19 05:25 Potassium 3.4 mmol/L (3.5-5.1) L 02/02/19 05:25 Chloride 96 mmol/L (98-107) L 02/02/19 05:25 Carbon Dioxide 31 mmol/L (21-32) 02/02/19 05:25 Anion Gap 6 MMOL/L (8-16) L 02/02/19 05:25 BUN 11.7 mg/dL (7-18) 02/02/19 05:25 Creatinine 0.4 mg/dL (0.55-1.3) L 02/02/19 05:25 Random Glucose 122 mg/dL (74-106) H 02/02/19 05:25 Calcium 8.1 mg/dL (8.5-10.1) L 02/02/19 05:25 Total Bilirubin 0.8 mg/dL (0.2-1) 02/02/19 05:25 AST 28 U/L (15-37) 02/02/19 05:25 ALT 47 U/L (13-61) 02/02/19 05:25 Alkaline Phosphatase 189 U/L (45-117) H 02/02/19 05:25 Total Protein 5.6 g/dl (6.4-8.2) L 02/02/19 05:25 Albumin 2.0 g/dl (3.4-5.0) L 02/02/19 05:25 ASSESSMENT/PLAN: This is a 68 year old male with PMH significant for RUL squamous cell CA, diagnosed in August. He presented to the ER from Dr. Aviles's office on day of admission, after he was found to be anemic (H&H 7.9/25.0), and complains of B/L leg edema and generalized weakness over the past 1 week. He stated that he was visiting Dr. Aviles for a regular follow up appointment for his CA, and was due to start new medication (as per Dr. Aviles's note on 01/10, he has completed his course of Carboplatin and Paclitaxel, due to start Keytruda). He was found to be anemic and was referred to [facility] for a blood transfusion. He stated that the leg edema began gradually, over the past week, and he denies any associated trauma or recent illnesses. He also complained of urinary urgency and constipation, both of which began over the past week. He does not remember when he had his last bowel movement. He endorses subjective fevers over the past day , without any chills, diarrhea, dysuria, hematuria, nausea, vomiting, or diarrhea. He also complained of SOB, light headedness, dizziness, insomnia, and chest pain since his diagnosis in August. The chest pain is on the right side of his chest, 7/10 in intensity, described as a squeezing pain, constant in nature but varying in intensity, radiating to the posterior aspect of his right shoulder, with no recognizable aggravating or alleviating factors. He also complained of a productive cough with yellowish sputum for the past 5 months. He was recently discharged from [facility] on 01/08/19, he was admitted for post obstructive pneumonia and was treated with Zosyn, and discharged on a 1 week course of Augmentin. maging pending, not yet completed. More calm this morning , psych consult noted, Seroquel 50mg twice a day recommended. No objection to this. Continue monitoring mental status, frequent reorientation, remains confused. Psych follow up as indicated. Heme/Onc following closely.
[2019-02-03] MEDS ORDERED: PT OWN MED DRAWER 7, Y5N ONE (08:47)
[2019-02-03] MEDS ORDERED: QUEtiapine FUMARATE 25 MG TABLET (FP) ONE (08:47)
[2019-02-03] MEDS: LIDOCAINE 5% TOPICAL PATCH TP SCH (09:14)
[2019-02-03] MEDS: ACETAMINOPHEN 325 MG TABLET (FP) PO PRN ×2 (09:14→18:40)
[2019-02-03] MEDS: METOPROLOL TARTRATE 25 MG TABLET (FP) PO SCH (09:14)
[2019-02-03] MEDS: FERROUS GLUCONATE 324 MG TAB (FP) PO SCH (09:16)
[2019-02-03] MEDS: TAMSULOSIN HCL 0.4 MG CAP PO SCH (09:16)
[2019-02-03] MEDS: GABAPENTIN 300 MG CAPSULE (FP) PO PRN ×2 (09:16→19:15)
[2019-02-03] MEDS: PANTOPRAZOLE 40 MG TABLET (FP) PO SCH (09:16)
[2019-02-03] MEDS: predniSONE 20 MG TABLET (UD) PO SCH (09:16)
[2019-02-03] MEDS: ENOXAPARIN NA (PORCINE) 40 MG/0.4 ML DISP.SYRIN SQ SCH (09:17)
[2019-02-03] MEDS: POLYETHYLENE GLYCOL 3350 119 GM BTL PO SCH (09:18)
[2019-02-03] MEDS: QUEtiapine FUMARATE 50 MG TABLET PO SCH (09:18)
[2019-02-03] MEDS: BUDESONIDE/FORMETEROL FUMARATE 80/4.5 mcg INHALER IH SCH (09:21)
[2019-02-03 10:38] LABS: HEMATOCRIT 26.4 % (35.4-49); HEMOGLOBIN 8.5 GM/dL (11.7-16.9); LYMPH % 1.3 % (8-40); MCH 29.2 pg (25.7-33.7); MCHC 32.2 g/dl (32.0-35.9); MEAN CELL VOLUME 90.9 fl (80-96); MEAN PLT VOLUME 7.1 fl (7.5-11.1); MONO % 3.1 % (3.8-10.2); NEUT % 95.6 % (42.8-82.8); PLATELET COUNT 90 K/MM3 (134-434); RBC 2.91 M/mm3 (4.00-5.60); RDW 17.1 % (11.9-15.9); WHITE BLOOD COUNT 12.5 K/mm3 (4.0-10.0)
--- NOTE | 2019-02-03 11:58 | PN ---
Progress Note, Physician History of Present Illness: Sensorium improved. Remains in NSR. - Current Medication List Current Medications: Active Medications Acetaminophen (Tylenol -) 650 mg PO Q6H PRN PRN Reason: FEVER Last Admin: 02/03/19 09:14 Dose: 650 mg Albuterol/Ipratropium (Duoneb -) 1 amp NEB Q6H PRN PRN Reason: SHORTNESS OF BREATH Last Admin: 01/31/19 20:29 Dose: 1 amp Budesonide/Formoterol Fumarate (Symbicort 80/4.5mcg -) 2 puff IH BID [facility] Last Admin: 02/03/19 09:21 Dose: 2 puff Diphenhydramine HCl (Benadryl -) 25 mg PO Q6H PRN PRN Reason: FOR ITCHING Last Admin: 01/31/19 21:39 Dose: 25 mg Docusate Sodium (Colace -) 300 mg PO HS [facility] Last Admin: 02/02/19 21:01 Dose: 300 mg Enoxaparin Sodium (Lovenox -) 40 mg SQ DAILY [facility] Last Admin: 02/03/19 09:17 Dose: 40 mg Ferrous Gluconate (Fergon -) 324 mg PO DAILY [facility] Last Admin: 02/03/19 09:16 Dose: 324 mg Gabapentin (Neurontin -) 300 mg PO BID PRN PRN Reason: PAIN Last Admin: 02/03/19 09:16 Dose: 300 mg Guaifenesin (Robitussin Dm -) 10 ml PO Q6H PRN PRN Reason: COUGH Last Admin: 02/02/19 10:56 Dose: 10 ml Lidocaine (Lidoderm Patch -) 1 patch TP DAILY [facility] Last Admin: 02/03/19 09:14 Dose: 1 patch Methadone HCl (Dolophine -) 10 mg PO Q12H [facility] Last Admin: 02/03/19 00:27 Dose: 10 mg Metoprolol Tartrate (Lopressor Injection -) 5 mg IVPUSH Q6H PRN PRN Reason: TACHYCARDIA Last Admin: 01/25/19 16:12 Dose: 5 mg Metoprolol Tartrate (Lopressor -) 50 mg PO BID [facility] Last Admin: 02/03/19 09:14 Dose: 50 mg Miscellaneous (Lidoderm Patch Removal) 1 each MC DAILY@2200 [facility] Last Admin: 02/02/19 21:03 Dose: 1 each Pantoprazole Sodium (Protonix -) 40 mg PO DAILY [facility] Last Admin: 02/03/19 09:16 Dose: 40 mg Polyethylene Glycol (Miralax (For Daily Use) -) 17 gm PO BID [facility] Last Admin: 02/03/19 09:18 Dose: 17 gm Prednisone (Deltasone -) 40 mg PO DAILY [facility] Last Admin: 02/03/19 09:16 Dose: 40 mg Quetiapine Fumarate (Seroquel -) 50 mg PO BID [facility] Last Admin: 02/03/19 09:18 Dose: Not Given Tamsulosin HCl (Flomax -) 0.4 mg PO BID [facility] Last Admin: 02/03/19 09:16 Dose: 0.4 mg - Objective Vital Signs: Vital Signs Temperature 97.2 F L 02/03/19 10:00 Pulse Rate 111 H 02/03/19 10:00 Respiratory Rate 18 02/03/19 10:00 Blood Pressure 109/69 02/03/19 10:00 O2 Sat by Pulse Oximetry (%) 97 02/03/19 09:00 Constitutional: Yes: No Distress, Calm Neck: Yes: Supple Cardiovascular: Yes: Regular Rate and Rhythm Respiratory: Yes: Regular, Diminished Gastrointestinal: Yes: Normal Bowel Sounds, Soft Edema: No Labs: CBC, BMP 02/03/19 10:04 02/03/19 10:04 Problem List - Problems (1) Anemia Code(s): D64.9 - ANEMIA, UNSPECIFIED Qualifiers: Anemia type: unspecified type Qualified Code(s): D64.9 - Anemia, unspecified (2) Generalized weakness Code(s): R53.1 - WEAKNESS (3) Hyponatremia Code(s): E87.1 - HYPO-OSMOLALITY AND HYPONATREMIA (4) Lung cancer Code(s): C34.90 - MALIGNANT NEOPLASM OF UNSP PART OF UNSP BRONCHUS OR LUNG (5) PSVT (paroxysmal supraventricular tachycardia) Code(s): I47.1 - SUPRAVENTRICULAR TACHYCARDIA Assessment/Plan 01/26/2019 Echocardiography: Normal LV and RV size and fxn tr TR 1. PSVT s/p adenosine and cardioversion to sinus tachycardia 2. Advanced NSCLC (Squamous cell CA of lung) s/p chemotherapy and radiation therapy 3. History of pneumonia 4. Anemia s/p PRBC transfusion 5. Generalized weakness due to above 6. 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 Hyponatremia resolved 8. Chronic Pain/Methadone Maintenance PLAN: 1. Continue Metoprolol 50 bid 2. Removed telemetry monitors 3. Transfuse PRBC as needed and follow CBC 4. Monitor NA and correct 5. DVT and Gi prophylaxis 6. Completed empiric antibiotic coverage, oral steroid taper, BD and O2 as needed
--- NOTE | 2019-02-03 13:15 | PN ---
Progress Note, Physician History of Present Illness: pulmonary alert,comfortable,-resp distress - Current Medication List Current Medications: Active Medications Acetaminophen (Tylenol -) 650 mg PO Q6H PRN PRN Reason: FEVER Last Admin: 02/03/19 09:14 Dose: 650 mg Albuterol/Ipratropium (Duoneb -) 1 amp NEB Q6H PRN PRN Reason: SHORTNESS OF BREATH Last Admin: 01/31/19 20:29 Dose: 1 amp Budesonide/Formoterol Fumarate (Symbicort 80/4.5mcg -) 2 puff IH BID [facility] Last Admin: 02/03/19 09:21 Dose: 2 puff Diphenhydramine HCl (Benadryl -) 25 mg PO Q6H PRN PRN Reason: FOR ITCHING Last Admin: 01/31/19 21:39 Dose: 25 mg Docusate Sodium (Colace -) 300 mg PO HS [facility] Last Admin: 02/02/19 21:01 Dose: 300 mg Enoxaparin Sodium (Lovenox -) 40 mg SQ DAILY [facility] Last Admin: 02/03/19 09:17 Dose: 40 mg Ferrous Gluconate (Fergon -) 324 mg PO DAILY [facility] Last Admin: 02/03/19 09:16 Dose: 324 mg Gabapentin (Neurontin -) 300 mg PO BID PRN PRN Reason: PAIN Last Admin: 02/03/19 09:16 Dose: 300 mg Guaifenesin (Robitussin Dm -) 10 ml PO Q6H PRN PRN Reason: COUGH Last Admin: 02/02/19 10:56 Dose: 10 ml Lidocaine (Lidoderm Patch -) 1 patch TP DAILY [facility] Last Admin: 02/03/19 09:14 Dose: 1 patch Methadone HCl (Dolophine -) 10 mg PO Q12H [facility] Last Admin: 02/03/19 12:32 Dose: 10 mg Metoprolol Tartrate (Lopressor Injection -) 5 mg IVPUSH Q6H PRN PRN Reason: TACHYCARDIA Last Admin: 01/25/19 16:12 Dose: 5 mg Metoprolol Tartrate (Lopressor -) 50 mg PO BID [facility] Last Admin: 02/03/19 09:14 Dose: 50 mg Miscellaneous (Lidoderm Patch Removal) 1 each MC DAILY@2200 [facility] Last Admin: 02/02/19 21:03 Dose: 1 each Pantoprazole Sodium (Protonix -) 40 mg PO DAILY [facility] Last Admin: 02/03/19 09:16 Dose: 40 mg Polyethylene Glycol (Miralax (For Daily Use) -) 17 gm PO BID [facility] Last Admin: 02/03/19 09:18 Dose: 17 gm Prednisone (Deltasone -) 40 mg PO DAILY [facility] Last Admin: 02/03/19 09:16 Dose: 40 mg Quetiapine Fumarate (Seroquel -) 50 mg PO BID [facility] Last Admin: 02/03/19 09:18 Dose: Not Given Tamsulosin HCl (Flomax -) 0.4 mg PO BID [facility] Last Admin: 02/03/19 09:16 Dose: 0.4 mg - Objective Vital Signs: Vital Signs Temperature 97.2 F L 02/03/19 10:00 Pulse Rate 111 H 02/03/19 10:00 Respiratory Rate 18 02/03/19 10:00 Blood Pressure 109/69 02/03/19 10:00 O2 Sat by Pulse Oximetry (%) 97 02/03/19 09:00 Constitutional: Yes: Calm, Thin Eyes: Yes: WNL HENT: Yes: WNL Neck: Yes: WNL Cardiovascular: Yes: Regular Rate and Rhythm, S1, S2 Respiratory: Yes: Rhonchi (few rhonchi) Gastrointestinal: Yes: Normal Bowel Sounds, Soft Extremities: Yes: WNL Edema: No Labs: CBC, BMP 02/03/19 10:04 02/03/19 10:04 Problem List - Problems (1) Agitated Code(s): R45.1 - RESTLESSNESS AND AGITATION (2) Anemia Code(s): D64.9 - ANEMIA, UNSPECIFIED Qualifiers: Anemia type: unspecified type Qualified Code(s): D64.9 - Anemia, unspecified (3) COPD exacerbation Code(s): J44.1 - CHRONIC OBSTRUCTIVE PULMONARY DISEASE W (ACUTE) EXACERBATION (4) Dysrhythmia Code(s): I49.9 - CARDIAC ARRHYTHMIA, UNSPECIFIED (5) Lung cancer Code(s): C34.90 - MALIGNANT NEOPLASM OF UNSP PART OF UNSP BRONCHUS OR LUNG (6) PSVT (paroxysmal supraventricular tachycardia) Code(s): I47.1 - SUPRAVENTRICULAR TACHYCARDIA Assessment/Plan ASSESSMENT AND PLAN: SVT s/p DCCV Advanced NSCLC (Squamous cell) s/p chemo Low clinical impression of PNA Chronic Pain/Methadone Maintenance Anemia Smoker - rate control - monitor H/H - Normal transfusion threshold - DVT prophylaxis - Prednisone DR EDWARDS
--- NOTE | 2019-02-03 13:33 | DS ---
Physical Exam: SUBJECTIVE: Patient seen and examined. He reports pain but is not communicating where he is having pain. OBJECTIVE: Vital Signs Period Temp Pulse Resp BP Sys/Seo Pulse Ox Last 24 Hr 97.2 F-98.6 F 86-124 18-18 107-131/55-81 95-97 PHYSICAL EXAM GENERAL: The patient is awake, not verbal, responds by shaking his head, is sitting in bed with his head down. Oriented x3 HEAD: Normal with no signs of trauma. EYES: PERRL, extraocular movements intact, sclera anicteric, conjunctiva clear. No ptosis. ENT: Ears normal, nares patent, moist mucous membranes. NECK: Trachea midline, full range of motion, supple. LUNGS: Lungs clear to auscultation bilaterally, no accessory muscle use. HEART: Regular rate and rhythm, S1, S2 without murmur, rub or gallop. ABDOMEN: Soft, nontender, nondistended, normoactive bowel sounds EXTREMITIES: 2+ pulses, warm, well-perfused, no edema. NEUROLOGICAL: Cranial nerves II through XII grossly intact. Normal speech, gait not observed. PSYCH: Normal mood, normal affect. SKIN: Warm, dry, normal turgor, no rashes or lesions noted on trunk or extremities LABS Laboratory Results - last 24 hr 02/03/19 02/03/19 10:04 10:04 WBC 12.5 H RBC 2.91 L Hgb 8.5 L Hct 26.4 L MCV 90.9 MCH 29.2 MCHC 32.2 RDW 17.1 H Plt Count 90 L MPV 7.1 L D Absolute Neuts (auto) 11.9 H Neutrophils % 95.6 H Lymphocytes % 1.3 L Monocytes % 3.1 L Eosinophils % 0.0 Basophils % 0.0 Nucleated RBC % 0 Potassium 3.7 HOSPITAL COURSE: Mr. Gonzalez is a 68y/o male with RUL squamous cell carcinoma on chemo and immunotherapy, COPD, chronic pain syndrome on methadone was sent from Dr Aviles office for fatigue and dyspnea and was found to be anemic in office. Upon presentation to the ED, his Hb was 7.9. He was transfused with PRBCs and Hb and symptoms improved. In the ED, he was found to have SVT and was successfully converted with DC cardioversion. Pt was also septic with unknown source. CXR showed prominent mediastinum, RUL cavitary mass, right early infiltrate, increasing atelectatic changes. Sputum cultures were negative. Febrile but later resolved. He was given a brief course of ceftriaxone but was discontinued as pt was not found to have pneumonia. Patient received IV steroids that was changed to PO prednisone. Nebulizers and Symbicort were administered as well. During the course, the patient had intermittent periods of AMS that have become controlled with introduction of Seroquel. MRI in December did not show metastatic disease. He is currently calm and cooperative A&Ox3. Pt had transaminitis which resolved during the course. U/S did not show evidence of cirrhosis. Pt has reports chronic pain in all extremities and back which is controlled with methadone, PRN oxycodone, and lidoderm patch. Date of Admission:01/23/19 Date of Discharge: 02/03/19 Minutes to complete discharge: 35 Discharge Summary Reason For Visit: ANEMIA Current Active Problems Agitated (Acute) Anemia (Acute) COPD exacerbation (Acute) Dementia (Acute) Dysrhythmia (Acute) Encounter for blood transfusion (Acute) Generalized weakness (Acute) Hyponatremia (Acute) Lung cancer (Acute) PSVT (paroxysmal supraventricular tachycardia) (Acute) Pain management (Acute) Condition: Stable - Instructions Diet, Activity, Other Instructions: YOUR VISIT You were admitted to the hospital for anemia (low red blood cells). You were given a blood transfusion and your labs improved. You also had a fast heart rhythm that was regulated. Your chronic pain has been managed. MEDICATIONS Resume your home medications. New prescriptions- metoprolol tartrate (Lopressor) 50mg twice a day quetiapine (Seroquel) 50mg twice a day prednisone 40mg once a day for 5 days Follow up with the following: primary care provider, Dr. Howe, within 1 week of discharge to recheck your blood, electrolytes, and liver function. oncologist, Dr. Aviles, within 1 week of discharge for management of cancer. park warden 1 week from today. A referral to Dr. Hudson has been provided. art dealer 1 week from today. A referral to Dr. Can has been provided. infectious disease specialist 1 week from today. A referral to Dr. Sifuentes has been provided. ADDITIONAL INFORMATION Please call 911 or come directly to the emergency department if you experience unusual headache, vision change, shortness of breath, chest pain, numbness, tingling, loss of alertness/awareness, loss of function, unusual bleeding or any alarming symptoms. Referrals: Willard Sifuentes MD [Staff Physician] - Rohan Howe MD [Primary Care Provider] - Edwar Can MD [Staff Physician] - Vic Aviles MD [Staff Physician] - Tang Hudson MD [Staff Physician] - Disposition: HOME - Home Medications Comprehensive Discharge Medication List: Ambulatory Orders Docusate Sodium [Colace] 100 mg PO TID 01/05/19 Gabapentin 300 mg PO Q8H PRN 01/05/19 Oxycodone HCl 5 mg PO Q4H PRN 01/05/19 Pantoprazole Sodium [Protonix] 40 mg PO DAILY 01/05/19 Tamsulosin HCl 0.4 mg PO BID 01/05/19 Cannabidiol (Cbd) Extract 0.2 ml PO BID 01/06/19 Ferrous Gluconate [Fergon -] 324 mg PO DAILY #30 tab 01/08/19 Methadone [Dolophine -] 10 mg PO Q12H 01/08/19 Azithromycin [Zithromax 250mg Tablets -] 250 mg PO DAILY 01/25/19 Guaifenesin Dm [Robitussin Dm -] 10 ml PO Q6H PRN 01/25/19 Salmeterol/Fluticasone [Advair 100Mcg/50Mcg -] 250 mcg PO PRN 01/25/19 - Discharge Referral Referred to [facility] No ATTENDING PHYSICIAN STATEMENT I saw and evaluated the patient. I reviewed the resident's note and discussed the case with the resident. I agree with the resident's findings and plan as documented. SUBJECTIVE: OBJECTIVE: ASSESSMENT AND PLAN:
--- NOTE | 2019-02-03 14:00 | PN ---
Teaching Attending Note Name of Resident: Sherry Kapadia ATTENDING PHYSICIAN STATEMENT I saw and evaluated the patient. I reviewed the resident's note and discussed the case with the resident. I agree with the resident's findings and plan as documented. SUBJECTIVE: Oriented x 3 today. R sided chest discomfort improving. No fever/ chills. OBJECTIVE: Fever resolved - Last fever 01/31 10am Tmax 100.8, Hemodynamically Stable. Improving mental status, now AAO x 3. Last Vital Signs Temp Pulse Resp BP Pulse Ox 97.2 F L 111 H 18 109/69 97 02/03/19 10:00 02/03/19 10:00 02/03/19 10:02/03/19 10:02/03/19 09:00 HEART: S1S2, RRR LUNGS: no wheeze, decreased air entry at bases. ABDOMEN: Soft, non-tender, normal BS EXTREMITIES: Edema ++, no calf tenderness. NEURO: AAO x 3. Tone/Power normal all 4 extremities. Laboratory Results - last 24 hr 02/03/19 02/03/19 10:04 10:04 WBC 12.5 H RBC 2.91 L Hgb 8.5 L Hct 26.4 L MCV 90.9 MCH 29.2 MCHC 32.2 RDW 17.1 H Plt Count 90 L MPV 7.1 L D Absolute Neuts (auto) 11.9 H Neutrophils % 95.6 H Lymphocytes % 1.3 L Monocytes % 3.1 L Eosinophils % 0.0 Basophils % 0.0 Nucleated RBC % 0 Potassium 3.7 Current Medications Generic Name Dose Route Start Last Admin Trade Name Freq PRN Reason Stop Dose Admin Acetaminophen 650 mg 01/27/19 15:22 02/03/19 09:14 Tylenol - PO 650 mg Q6H PRN Administration FEVER Albuterol/Ipratropium 1 amp 01/27/19 08:27 01/31/19 20:29 Duoneb - NEB 1 amp Q6H PRN Administration SHORTNESS OF BREATH Budesonide/Formoterol Fumarate 2 puff 01/28/19 10:00 02/03/19 09:21 Symbicort 80/4.5mcg - IH 2 puff BID SHIRA Administration Diphenhydramine HCl 25 mg 01/31/19 12:25 01/31/19 21:39 Benadryl - PO 25 mg Q6H PRN Administration FOR ITCHING Docusate Sodium 300 mg 01/24/19 22:00 02/02/19 21:01 Colace - PO 300 mg HS SHIRA Administration Enoxaparin Sodium 40 mg 01/25/19 10:00 02/03/19 09:17 Lovenox - SQ 40 mg DAILY [facility]A Administration Ferrous Gluconate 324 mg 01/28/19 10:00 02/03/19 09:16 Fergon - PO 324 mg DAILY [facility]A Administration Gabapentin 300 mg 01/24/19 17:53 02/03/19 09:16 Neurontin - PO 300 mg BID PRN Administration PAIN Guaifenesin 10 ml 01/29/19 14:40 02/02/19 10:56 Robitussin Dm - PO 10 ml Q6H PRN Administration COUGH Lidocaine 1 patch 01/27/19 12:30 02/03/19 09:14 Lidoderm Patch - TP 1 patch DAILY [facility] Administration Methadone HCl 10 mg 01/25/19 00:15 02/03/19 12:32 Dolophine - PO 10 mg Q12H [facility]A Administration Metoprolol Tartrate 5 mg 01/24/19 16:15 01/25/19 16:12 Lopressor Injection - IVPUSH 5 mg Q6H PRN Administration TACHYCARDIA Metoprolol Tartrate 50 mg 01/27/19 11:01 02/03/19 09:14 Lopressor - PO 50 mg BID [facility]A Administration Miscellaneous 1 each 01/27/19 23:00 02/02/19 21:03 Lidoderm Patch Removal MC 1 each DAILY@2200 SH[facility]A Administration Pantoprazole Sodium 40 mg 01/28/19 10:00 02/03/19 09:16 Protonix - PO 40 mg DAILY [facility] Administration Polyethylene Glycol 17 gm 01/24/19 22:00 02/03/19 09:18 Miralax (For Daily Use) - PO 17 gm BID [facility]A Administration Prednisone 40 mg 02/01/19 10:00 02/03/19 09:16 Deltasone - PO 40 mg DAILY [facility] Administration Quetiapine Fumarate 50 mg 02/02/19 22:00 02/03/19 09:18 Seroquel - PO Not Given BID [facility]A Tamsulosin HCl 0.4 mg 01/28/19 10:00 02/03/19 09:16 Flomax - PO 0.4 mg BID [facility]A Administration Home Medications Medication Instructions Recorded Docusate Sodium [Colace] 100 mg PO TID 01/05/19 Gabapentin 300 mg PO Q8H PRN 01/05/19 Oxycodone HCl 5 mg PO Q4H PRN 01/05/19 Pantoprazole Sodium [Protonix] 40 mg PO DAILY 01/05/19 Tamsulosin HCl 0.4 mg PO BID 01/05/19 Cannabidiol (Cbd) Extract 0.2 ml PO BID 01/06/19 Ferrous Gluconate [Fergon -] 324 mg PO DAILY #30 tab 01/08/19 Methadone [Dolophine -] 10 mg PO Q12H 01/08/19 Azithromycin [Zithromax 250mg 250 mg PO DAILY 01/25/19 Tablets -] Guaifenesin Dm [Robitussin Dm -] 10 ml PO Q6H PRN 01/25/19 Salmeterol/Fluticasone [Advair 250 mcg PO PRN 01/25/19 100Mcg/50Mcg -] ASSESSMENT AND PLAN: 68 year old man with a history of Squamous cell lung cancer, bowel resection secondary to obstruction, tobacco use, alcohol use, chronic pain syndrome, opioid dependence on methadone, BPH, sent by Dr. Aviles to the ED for weakness, leg edema, and anemia. 1. SIRS, source unclear. Fever resolved Initial/Repeat septic screen negative CXR - RUL cavitary lesion (known), no new consolidation. ID following. Not on Abx. 2. Acute Encephalopathy - Metabolic versus Toxic - improved On Methadone. Oxycodone held Pain management consulted for rationalization of pain medication regimen - recommend spinal stimulator but platelets low and will need to lay still for MRI C/T Spine. MRI Brain 12/[address] Brain 01/06 - negative for significant acute findings Neuro and Oncology recommend Brain imaging. MRI - unable to obtain thusfar due to non-compliance of patient. Seen by Psychiatry - started on Seroquel 50mg BID with good response. Medicaly and Neurologically stable for discharge. Can have MRI as out-patient, no acute indication for MRI at this time. 3. Paroxysmal supraventricular tachycardia - resolved s/p Adenosine, s/p Cardioversion - Continue Lopressor. Cardiology follow-up 4. Acute Exacerbation of COPD - improving. IV solumedrol transitioned to oral prednisone - continue Taper. Continue Duonebs. 5. Advanced Squamous cell Lung Cancer - s/p weekly carbo/taxol, s/p 1 cycle pembrolizumab - further management as per Oncology. 6. Anemia secondary to chronic disease/iron deficiency - Hematology/Oncology following - Continue ferrous gluconate 7. Chronic pain syndrome - Continue Methadone, Lidoderm patch, Neurontin pending further Pain management input. Oxy PRN reserved for breakthrough due to its negative effect on patient's mental status. 8. BPH - Continue Flomax 9. Thrombocytopenia - borderline - ?sec to Chemo/underlying malignancy. Repeat CBC 02/06. Hematology/Oncology follow up. Dipso - Medically optimized for transfer to [facility] with Hematology/Oncology , Pulmonary, Cardiology, neurology follow up as out-patient with repeat CBC on to monitor for platelet levels (results to Dr. Aviles please)
--- NOTE | 2019-02-03 14:06 | PN ---
Progress Note (short form) - Note Progress Note: Patient seen and examined Pain still main issue . Have discussed with patient and need to followup with pain management as this is primary co-morbid condition. Last Vital Signs Temp Pulse Resp BP Pulse Ox 97.2 F L 111 H 18 109/69 97 02/03/19 10:00 02/03/19 10:00 02/03/19 10:00 02/03/19 10:00 02/03/19 09:00 Lungs - rhonchi Cor-RSR bronchial breath sounds rhonchi CBC, BMP 02/03/19 10:04 02/03/19 10:04 Current Medications Generic Name Dose Route Start Last Admin Trade Name Freq PRN Reason Stop Dose Admin Acetaminophen 650 mg 01/27/19 15:22 02/03/19 09:14 Tylenol - PO 650 mg Q6H PRN Administration FEVER Albuterol/Ipratropium 1 amp 01/27/19 08:27 01/31/19 20:29 Duoneb - NEB 1 amp Q6H PRN Administration SHORTNESS OF BREATH Budesonide/Formoterol Fumarate 2 puff 01/28/19 10:00 02/03/19 09:21 Symbicort 80/4.5mcg - IH 2 puff BID SHIRA Administration Diphenhydramine HCl 25 mg 01/31/19 12:25 01/31/19 21:39 Benadryl - PO 25 mg Q6H PRN Administration FOR ITCHING Docusate Sodium 300 mg 01/24/19 22:00 02/02/19 21:01 Colace - PO 300 mg HS SHIRA Administration Enoxaparin Sodium 40 mg 01/25/19 10:00 02/03/19 09:17 Lovenox - SQ 40 mg DAILY [facility]A Administration Ferrous Gluconate 324 mg 01/28/19 10:00 02/03/19 09:16 Fergon - PO 324 mg DAILY [facility]A Administration Gabapentin 300 mg 01/24/19 17:53 02/03/19 09:16 Neurontin - PO 300 mg BID PRN Administration PAIN Guaifenesin 10 ml 01/29/19 14:40 02/02/19 10:56 Robitussin Dm - PO 10 ml Q6H PRN Administration COUGH Lidocaine 1 patch 01/27/19 12:30 02/03/19 09:14 Lidoderm Patch - TP 1 patch DAILY [facility] Administration Methadone HCl 10 mg 01/25/19 00:15 02/03/19 12:32 Dolophine - PO 10 mg Q12H SH[facility]A Administration Metoprolol Tartrate 5 mg 01/24/19 16:15 01/25/19 16:12 Lopressor Injection - IVPUSH 5 mg Q6H PRN Administration TACHYCARDIA Metoprolol Tartrate 50 mg 01/27/19 11:01 02/03/19 09:14 Lopressor - PO 50 mg BID SH[facility]A Administration Miscellaneous 1 each 01/27/19 23:00 02/02/19 21:03 Lidoderm Patch Removal MC 1 each DAILY@2200 SHIRA Administration Pantoprazole Sodium 40 mg 01/28/19 10:00 02/03/19 09:16 Protonix - PO 40 mg DAILY [facility]A Administration Polyethylene Glycol 17 gm 01/24/19 22:00 02/03/19 09:18 Miralax (For Daily Use) - PO 17 gm BID SH[facility]A Administration Prednisone 40 mg 02/01/19 10:00 02/03/19 09:16 Deltasone - PO 40 mg DAILY [facility]A Administration Quetiapine Fumarate 50 mg 02/02/19 22:00 02/03/19 09:18 Seroquel - PO Not Given BID SHIRA Tamsulosin HCl 0.4 mg 01/28/19 10:00 02/03/19 09:16 Flomax - PO 0.4 mg BID SHIRA Administration Impression: SCC lung Pain management Anemia Will need to taper steroids Will need to follow up as outpatient.
[2019-02-03] MEDS: guaiFENesin/D-METHORPHAN HB 10 ML UNIT-DOSE CUPS PO PRN (15:17)
[2019-02-03 15:37] LABS: ANISOCYTOSIS 1+; MACROCYTOSIS 1+; OVALOCYTE 1+; PLATELET ESTIMATE DECREASED
[2019-02-03 19:30] VITALS: BP 105/70; PULSE 95; TEMP 98.8
== END 2019-02-03 20:00 | DRG 180 ==
LOC: JER 19:11 → JERBED 22:38 → JICU 01-24 05:13 → J4S 01-24 17:19
PROVIDERS: ADMIT Internal Medicine
PROC: 30233N1 Transfusion of Nonautologous Red Blood Cells into Peripheral Vein, Percutaneous Approach (ICD-10-PCS; principal; 2019-01-24)
DX: C34.11 Malignant neoplasm of upper lobe, right bronchus or lung (principal); G93.41 Metabolic encephalopathy; I47.1 Supraventricular tachycardia; J44.1 Chronic obstructive pulmonary disease with (acute) exacerbation; E87.1 Hypo-osmolality and hyponatremia; E46 Unspecified protein-calorie malnutrition; Z68.1 Body mass index [BMI] 19.9 or less, adult; F03.91 Unspecified dementia, unspecified severity, with behavioral disturbance; F11.20 Opioid dependence, uncomplicated; R65.10 Systemic inflammatory response syndrome (SIRS) of non-infectious origin without acute organ dysfunction; I48.92 Unspecified atrial flutter; D63.0 Anemia in neoplastic disease; D72.829 Elevated white blood cell count, unspecified; R74.0 Nonspecific elevation of levels of transaminase and lactic acid dehydrogenase [LDH]; I95.9 Hypotension, unspecified; D69.6 Thrombocytopenia, unspecified; F17.210 Nicotine dependence, cigarettes, uncomplicated; G89.4 Chronic pain syndrome; R53.1 Weakness; F09 Unspecified mental disorder due to known physiological condition; I48.0 Paroxysmal atrial fibrillation; R50.9 Fever, unspecified
CPT/HCPCS: 36415; 36430; 36511; 36600; 71045-TC-FY; 71046-TC-FY; 76705-TC; 80048; 80053; 80076; 81003; 82140; 82272; 82803; 82977; 83735; 84100; 84132; 84439; 84443; 85025; 86850; 86900; 86901; 86922; 87040; 87070; 87086; 87205; 87899; 93005; 93010; 93306-TC; 93308; 93970; 93970-TC; 94640; 97116-GP; 97161-GP; 99284-25; J0131; J7030; P9038; P9058

== ENCOUNTER 2019-02-08 11:15 | Inpatient (IN) | payer OTHER ==
[2019-02-08 12:22] LABS: BASO % 0.1 % (0-2.0); EOS % 0.1 % (0-4.5); HEMATOCRIT 24.9 % (35.4-49); HEMOGLOBIN 8.1 GM/dL (11.7-16.9); LYMPH % 0.6 % (8-40); MCH 29.2 pg (25.7-33.7); MCHC 32.4 g/dl (32.0-35.9); MEAN CELL VOLUME 90.4 fl (80-96); MEAN PLT VOLUME 7.9 fl (7.5-11.1); MONO % 2.8 % (3.8-10.2); NEUT % 96.4 % (42.8-82.8); PLATELET COUNT 97 K/MM3 (134-434); RBC 2.76 M/mm3 (4.00-5.60); RDW 17.4 % (11.9-15.9); WHITE BLOOD COUNT 10.7 K/mm3 (4.0-10.0)
[2019-02-08 12:37] LABS: INR 1.38 (0.83-1.09); PROTHROMBIN TIME (PATIENT) 16.3 SEC (9.7-13.0)
[2019-02-08 12:40] LABS: ACTIVATED PTT 29.6 SECONDS (25.2-36.5)
[2019-02-08 12:56] LABS: ANION GAP 6 MMOL/L (8-16); BLOOD UREA NITROGEN 14.4 mg/dL (7-18); CALCIUM 8.3 mg/dL (8.5-10.1); CHLORIDE 100 mmol/L (98-107); CO2 31 mmol/L (21-32); CREATININE 0.5 mg/dL (0.55-1.3); GLUCOSE,RANDOM 172 mg/dL (74-106); N-TERMINAL BNP 890.4 pg/ml (5-125); POTASSIUM 3.6 mmol/L (3.5-5.1); SODIUM 137 mmol/L (136-145)
[2019-02-08] MEDS ORDERED: SODIUM CHLORIDE 0.9% 1000 ML INFUS.BAG IV ONE (13:26)
[2019-02-08 13:28] LABS: ANISOCYTOSIS 1+; MACROCYTOSIS 0; OVALOCYTE 1+; PLATELET ESTIMATE DECREASED
--- NOTE | 2019-02-08 13:32 | PDOC ---
Documentation entered by Yael Rey SCRIBE, acting as scribe for Jenny Rajput MD. Jenny Rajput MD: This documentation has been prepared by the Krissy ibarra Adrianna, SCRIBE, under my direction and personally reviewed by me in its entirety. I confirm that the documentation accurately reflects all work, treatment, procedures, and medical decision making performed by me. History of Present Illness - General Chief Complaint: Shortness of Breath Stated Complaint: SOB - History of Present Illness Initial Comments: 68 Y M, PMH of lung CA (on chemo, radiation under care Dr. Aviles), anemia, BPH, COPD, and GERD, presenting from [facility] with confusion and edema. As per nursing note, patient was increasingly confused and lethargic today. Nursing note states he had a low O2 sat and developed bilateral low extremity edema. Patient has been noted to urinate on the floor often. HPI is limited secondary to patient being a poor historian. d/w pt daughter who provides additional history, pt has been increasingly depressed and in pain due to his cancer. they were unable to obtain MRI on last visit due to his inability to cooperate with the exam. pt did try to commit suicide at the rehab facility. tried to tie the call stovall around his neck. they were sent to [facility], to be evaluated by psychiatry and dc back to rehab last evening. this am pt was found to be hypotensive with peripheral edema. and more confused, lethargic. Allergies: NKA, NKDA Surgical History: None reported Social History: [facility] resident. Former smoker (5 months ago). EtOH and opiate use. PCP: Dr. Trujillo 02/08/19 15:10 Past History - Past Medical History Allergies/Adverse Reactions: Allergies Allergy/AdvReac Type Severity Reaction Status Date / Time No Known Allergies Allergy Verified 01/23/19 19:29 Home Medications: Ambulatory Orders Docusate Sodium [Colace] 100 mg PO TID 01/05/19 Gabapentin 300 mg PO Q8H PRN 01/05/19 Oxycodone HCl 5 mg PO Q4H PRN 01/05/19 Pantoprazole Sodium [Protonix] 40 mg PO DAILY 01/05/19 Tamsulosin HCl 0.4 mg PO BID 01/05/19 Ferrous Gluconate [Fergon -] 324 mg PO DAILY #30 tab 09/01/19 Methadone [Dolophine -] 10 mg PO Q12H 01/08/19 Salmeterol/Fluticasone [Advair 100Mcg/50Mcg -] 250 mcg PO PRN 01/25/19 Metoprolol Tartrate [Lopressor -] 50 mg PO BID 30 Days #60 tablet 02/03/19 Quetiapine Fumarate [Seroquel -] 50 mg PO BID 30 Days #60 tablet 02/03/19 oxyCODONE HCL [Roxicodone -] 5 mg PO Q6H PRN #20 tablet MDD 20mg 02/03/19 predniSONE [Deltasone -] See Taper PO ASDIR #1 tab 02/03/19 Anemia: No Asthma: No Cancer: Yes (lung ca) Cardiac Disorders: Yes CVA: No COPD: No CHF: No Dementia: No Diabetes: No GI Disorders: No Disorders: No HTN: No Hypercholesterolemia: No Liver Disease: No Seizures: No Thyroid Disease: No - Surgical History Abdominal Surgery: No Appendectomy: No Cardiac Surgery: No Cholecystectomy: No Lung Surgery: No Neurologic Surgery: No Orthopedic Surgery: No - Psycho Social/Smoking Cessation Hx Smoking History: Unknown if ever smoked Have you smoked in the past 12 months: No Number of Cigarettes Smoked Daily: 30 If you are a former smoker, when did you quit?: August 2018 Cigars Per Day: 60 'Breaking Loose' booklet given: 08/08/18 Hx Alcohol Use: Yes Drug/Substance Use Hx: No Substance Use Type: Alcohol, Opiates Hx Substance Use Treatment: (ALCOHOL, OPIATES, TOBACCO) Review of Systems - Review of Systems Able to Perform ROS?: No (poor historian) *Physical Exam - Vital Signs Last Vital Signs Temp Pulse Resp BP Pulse Ox 97.6 F 90 16 71/43 L 94 L 02/08/19 11:30 02/08/19 11:30 02/08/19 11:30 02/08/19 11:30 02/08/19 11:30 - Physical Exam Comments: 02/08/19 15:12 awake but drowsy, intermittently answers questions. lungs decreased with crackels right side. normal effort. heart rrr no mrg abd soft nt nd ext wwp noted bilat pitting edema. 2 + . skin warm and dry. nuero answer quetions intermittently . moves all four ext ED Treatment Course - LABORATORY CBC & Chemistry Diagram: 02/08/19 12:10 02/08/19 12:10 - RADIOLOGY Radiograph Interpretation: EXAM#: TYPE/EXAM: RESULT: [id number] RAD/CHEST X-RAY PORTABLE* Chest: Shortness of breath. History of cancer. Single AP view of the chest reveals increasing right consolidation with large cavitary mass in the right upper lobe. There is a weak inspiration, chin artifact and clear left lung. There is a sclerotic unfolded aorta. Correlation recommended. Reported By: Florentin Hawkins MD 02/08/19 14:08 Medical Decision Making - Medical Decision Making 02/08/19 15:13 68 yo male h/o lung ca, worsening depression, failure to thrive from nursing facility, chronic pain here with recent suicide attempts and hypotension . differential hypovolemia, infection [place]. brain mets. plan labs ct head iv hydration. d/w dr aviles recommend admission for aliggnment with end of life care, hospice. palliative. will consult dr Cody for chronic pain control. d/w admitting team, will admit to dr cisneros. cxr wtih cavitary cancer lesion has had in the past. pt unable to have ct head, too high risk for sedation to obtain study. d/w pt daughter regarding goals of care. recommend hospice or palliative to improve pain control and work on depression. Discharge - Discharge Information Problems reviewed: Yes Clinical Impression/Diagnosis: Lung cancer, Generalized weakness, Pain management - Admission Yes - Follow up/Referral Referrals: Rohan Howe MD [Primary Care Provider] - - Patient Discharge Instructions - Post Discharge Activity
[2019-02-08] MEDS: SODIUM CHLORIDE 1,000 ML IV SCH (17:02)
[2019-02-08] MEDS ORDERED: GABAPENTIN 300 MG CAPSULE (FP) PO PRN (17:06)
[2019-02-08] MEDS ORDERED: FLUTICASONE/SALMETEROL 100 MCG/50 MCG DISKUS IH PRN (17:06)
[2019-02-08] MEDS ORDERED: oxyCODONE HCL 5 MG TABLET PO PRN (17:06)
--- NOTE | 2019-02-08 17:08 | PN ---
Teaching Attending Note Name of Resident: Darleen Mcfarland ATTENDING PHYSICIAN STATEMENT I saw and evaluated the patient. I reviewed the resident's note and discussed the case with the resident. I agree with the resident's findings and plan as documented. 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 on arrival is 71/43. er unable to get repeat due to pt non-compliance. pt is poor historian and very somnolent and not participating during interview. as per he is at mental baseline was sent here for pain control and low BP. states facility does not give all his pain meds as they have restrictions with how much they are allowed to give and he is always in pain. also mentions that she does not want him to be on gabapentin as she feels its affecting his mental status but will not elaborate when asked specifically what she means if shes stating he is at his baseline. also admits to poor appetite pt is known to me from recent admission for SVT where he selectively chooses to answer questions. his complaint is always about his pain. 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 Hypotension- unclear cause. repeat BP on my exam 92/51. unclear source other than can be induced from opiates vs infection. will initiate sepsis workup. pt is immunocompromised and might not mount fever or leukocytosis. would hold on abx therapy at this time. will give IVF with frequent BP checks for monitoring. BP on discharge last hospital stay was low 100's. 2. Diffuse pain-worse in the back. bone scan earlier this year showing DJD however could not rule out mets, no MRI has been done as pt refuses. concern if does have bone mets perhaps would benefit from dexamethasone for some pain relief. has been in talks for stimulator however has not been ideal candidate for placement at this point. will re-start pain management started by his specialist who did see him last visit. has been re-consulted by ER staff. will titrate down gabapentin at families request. may be limited options at this time 3. Suicidal idealizations- as per was at [facility] 2 days ago after 2 suicide attempts. unclear what was done. does not verbalize any thoughts at this time. psych consulted 4. r/o acute metabolic encephalopathy- as per chart pt was sent for confusion however per he is at baseline. known to me in the past and mental status does wax/wane some in part to pain management. had MRI earlier this year which was negative for mets. has not been repeated as pt refuses. would just monitor for now 5. RUL squamous carcinoma- not a candidate for immunotherapy at this time due to inability to tolerate it. will need to speak with oncology if there are any other options at this time. ECOG status seems poor. oncology consult to discuss prognosis 6. SBO s/p resection 7. DVT ppx- lovenox 8. spoke with about plan and limited options. states daughter is HCP and will be here tonight. encouraged her that they need to decide on goals of care at this time.
--- NOTE | 2019-02-08 17:15 | HP ---
CHIEF COMPLAINT: AMS, hypotension PCP: from Dr. Carley Lynch HISTORY OF PRESENT ILLNESS: Patient is a 68 y/o male with a history of RUL squamous cell carcinoma stage 4, anemia, BPH, COPD, and GERD who presents for AMS and hypotension. Patient was recently discharged from [facility] on 02/03. At this visit he was r/o to have pna and he was seen by pain management. Patient has been on a high amount of pain medication and per his he has been confused since. Patient reports he has chest pain and back pain, but is a poor historian. is at bedside, daughter is health care proxy. Per patient has not gotten any chemo or radiation in a few months because he could not tolerate the side effects of swollen legs. The family has not made any decisions about palliative care. Patient was recently in [facility] for attempted suicide. Per MA at bedside patient has repeatedly talked about suicide. ER course was notable for: (1) (2) (3) Recent Travel: denies PAST MEDICAL HISTORY: RUL squamous cell carcinoma stage 4, anemia, BPH, COPD, and GERD PAST SURGICAL HISTORY: Social History: Smoking: denies Alcohol: denies Drugs: denies Allergies No Known Allergies Allergy (Verified 01/23/19 19:29) HOME MEDICATIONS: Home Medications Medication Instructions Recorded Docusate Sodium [Colace] 100 mg PO TID 01/05/19 Gabapentin 300 mg PO Q8H PRN 01/05/19 Oxycodone HCl 5 mg PO Q4H PRN 01/05/19 Pantoprazole Sodium [Protonix] 40 mg PO DAILY 01/05/19 Tamsulosin HCl 0.4 mg PO BID 01/05/19 Ferrous Gluconate [Fergon -] 324 mg PO DAILY #30 tab 01/08/19 Methadone [Dolophine -] 10 mg PO Q12H 01/08/19 Salmeterol/Fluticasone [Advair 2 puff IH Q12H PRN 01/25/19 100Mcg/50Mcg -] Metoprolol Tartrate [Lopressor -] 50 mg PO BID 30 Days #60 tablet 02/03/19 Quetiapine Fumarate [Seroquel -] 50 mg PO BID 30 Days #60 tablet 02/03/19 oxyCODONE HCL [Roxicodone -] 5 mg PO Q6H PRN #20 tablet MDD 20mg 02/03/19 predniSONE [Deltasone -] See Taper PO ASDIR #1 tab 02/03/19 Albuterol Sulfate Inhaler - 2 puff IN Q4HWA PRN 02/08/19 [Ventolin HFA Inhaler -] Ipratropium 0.02% Nebulizer 1 neb NEB TID 02/08/19 [Atrovent] REVIEW OF SYSTEMS mostly unable to obtain due to AMS per complains of chest pain and back pain PHYSICAL EXAMINATION Vital Signs - 24 hr 02/08/19 11:30 Temperature 97.6 F Pulse Rate 90 Respiratory 16 Rate Blood Pressure 71/43 L O2 Sat by Pulse 94 L Oximetry (%) GENERAL: Awake, alert, in riya, restless trying to get out of bed EYES: , extraocular movements intact LUNGS: Breath sounds equal, clear to auscultation bilaterally. No wheezes, and no crackles. No accessory muscle use. HEART: Regular rate and rhythm, normal S1 and S2 without murmur, rub or gallop. ABDOMEN: Soft, nontender, not distended, normoactive bowel sounds, MUSCULOSKELETAL: Normal range of motion at all joints. . LOWER EXTREMITIES: 2+ pulses, warm, well-perfused. No calf tenderness. 1+ pitting edema SKIN: Warm, dry, normal turgor, no rashes or lesions noted, normal capillary refill. Laboratory Results - last 24 hr 02/08/19 02/08/19 02/08/19 12:10 12:10 12:10 WBC 10.7 H RBC 2.76 L Hgb 8.1 L Hct 24.9 L MCV 90.4 MCH 29.2 MCHC 32.4 RDW 17.4 H Plt Count 97 L MPV 7.9 D Absolute Neuts (auto) 10.4 H Neutrophils % 96.4 H Neutrophils % (Manual) 84.0 H Band Neutrophils % 11.0 Lymphocytes % 0.6 L Lymphocytes % (Manual) 2.0 L D Monocytes % 2.8 L Monocytes % (Manual) 3 L Eosinophils % 0.1 D Eosinophils % (Manual) 0.0 Basophils % 0.1 D Basophils % (Manual) 0.0 Myelocytes % (Man) 0 Promyelocytes % (Man) 0 Blast Cells % (Manual) 0 Nucleated RBC % 0 Metamyelocytes 0 Hypochromia 1+ Platelet Estimate Decreased Polychromasia 0 Poikilocytosis 0 Anisocytosis 1+ Microcytosis 0 Macrocytosis 0 Ovalocytes 1+ PT with INR 16.30 H INR 1.38 H PTT (Actin FS) 29.6 Sodium 137 Potassium 3.6 Chloride 100 Carbon Dioxide 31 Anion Gap 6 L BUN 14.4 Creatinine 0.5 L Est GFR (CKD-EPI)AfAm 129.05 Est GFR (CKD-EPI)NonAf 111.35 Random Glucose 172 H Calcium 8.3 L Creatine Kinase 72 Troponin I < 0.02 B-Natriuretic Peptide 890.4 H ASSESSMENT/PLAN: Patient is a 68 y/o male with a history of RUL squamous cell carcinoma stage 4, anemia, BPH, COPD, and GERD who presents for AMS and hypotension. #Hypotension - likely 2/2 to pain medication, cannot r/o sepsis - afebrile, w/o white count - f/u sepsis workup, lactic acid, blood culture, urine cx, sputum cx - hold antihypertensive medication # Stage 4 squamous cell carcinoma, with chronic pain - per patient not receiving treatment as he could not tolerate side effects - pain medication as per Dr Zhao per last visit, will f/u for any further reccomendations - oxycodone 5 q4h prn, methadone 10 q12 - f/u with Dr. Aviles for and additive therapy - began discussion of palliative with , needs to be continued with the health care proxy his daughter #AMS - per patient became altered after receiving pain medication and has continued to be confused - MRI from December- no metastasis to brain - pt unable to sit still for head CT, CT unlikely to car changer of patient - r/o sepsis as source of AMS #depression - recent attempts of suicide recently, patient still discussing suicide - 1:1 ordered - patient followed with Dr Carmona #GERD - continue pantoprazole #COPD - continue Advair #DVT ppx - Lovenox 40 sq daily FEN - regular diet Dispo: monitor on med surg Visit type - Emergency Visit Emergency Visit: Yes ED Registration Date: 02/08/19 Care time: The patient presented to the Emergency Department on the above date and was hospitalized for further evaluation of their emergent condition. - New Patient This patient is new to me today: Yes Date on this admission: 02/10/19 - Critical Care Critical Care patient: No ATTENDING PHYSICIAN STATEMENT I saw and evaluated the patient. I reviewed the resident's note and discussed the case with the resident. I agree with the resident's findings and plan as documented. SUBJECTIVE: OBJECTIVE: ASSESSMENT AND PLAN:
[2019-02-08] MEDS ORDERED: FLU VACCINE QUAD 60 MCG/0.5 ML (MDV 19-20) IM ONE (21:17)
[2019-02-08] MEDS ORDERED: QUEtiapine FUMARATE 25 MG TABLET (FP) ONE (21:23)
[2019-02-08] MEDS: METHADONE HCL 10 MG TABLET PO SCH (21:29)
[2019-02-08] MEDS: DOCUSATE SODIUM 100 MG CAPSULE (FP) PO SCH (21:30)
[2019-02-08] MEDS: GABAPENTIN 300 MG CAPSULE (FP) PO SCH (21:31)
[2019-02-08] MEDS: QUEtiapine FUMARATE 50 MG TABLET PO SCH (21:31)
--- NOTE | 2019-02-08 21:57 | PN ---
Mental Health Exam - Mental Status Exam Alert and Oriented to: Time (" i am in [facility] in extended vacation". ), Place Cognitive Function: Impaired Patient Appearance: Disheveled Mood: Elated Affect: Mood Congruent Patient Behavior: Restless, Impulsive Speech Pattern: Tangential (may break into song. ) Voice Loudness: Mildly Loud Thought Process: Circumstantial, Tangential, Disorganized Thought Disorder: Not Present Hallucinations: None Suicidal Ideation: Denies Homicidal Ideation: Denies Insight/Judgement: Poor Sleep: Fair Appetite: Weight loss Muscle strength/Tone: Mild Hypertonicity Gait/Station: Deferred (client in riya vest restraints.)
[2019-02-08] MEDS ORDERED: QUEtiapine FUMARATE 50 MG TABLET PO SCH ×2 (22:00)
[2019-02-08] MEDS ORDERED: FLUTICASONE/SALMETEROL 100 MCG/50 MCG DISKUS IH SCH (22:00)
--- NOTE | 2019-02-08 22:04 | PN ---
Progress Note, Physician Chief Complaint: 68 yo male seen earlier in ER today. He has squamous cell carcinoma on Chemo. He has a history of poly substance use, sent from [facility] for altered AMS and hypotension. He is in [id number] surrounded by his , HCP daughter Jody, RN and staff. He was entertaining all with his george cracks and jokes. He is restless in bed, with riya vest restraint. Client denies suicidal or homicidal ideation. He cannot explain how pull cord was reported wrapped around him. Was released from [facility], 2 days ago seen for SI. - Current Medication List Current Medications: Active Medications Docusate Sodium (Colace -) 100 mg PO TID [facility] Last Admin: 02/08/19 21:30 Dose: 100 mg Enoxaparin Sodium (Lovenox -) 40 mg SQ DAILY [facility] Ferrous Gluconate (Fergon -) 324 mg PO DAILY [facility] Gabapentin (Neurontin -) 300 mg PO TID [facility] Last Admin: 02/08/19 21:31 Dose: Not Given Sodium Chloride (Normal Saline -) 1,000 mls @ 100 mls/hr IV ASDIR [facility] Last Admin: 02/08/19 17:02 Dose: 100 mls/hr Methadone HCl (Dolophine -) 10 mg PO BID [facility] Last Admin: 02/08/19 21:29 Dose: 10 mg Oxycodone HCl (Roxicodone -) 5 mg PO Q4H PRN PRN Reason: PAIN LEVEL 6-10 Pantoprazole Sodium (Protonix -) 40 mg PO DAILY [facility] Quetiapine Fumarate (Seroquel -) 50 mg PO HS [facility] Last Admin: 02/08/19 21:31 Dose: 50 mg Fluticasone/Salmeterol (Advair 100mcg/50mcg -) 1 puff IH BID [facility] - Objective Vital Signs: Vital Signs Temperature 97.4 F L 02/08/19 20:40 Pulse Rate 93 H 02/08/19 20:40 Respiratory Rate 20 02/08/19 21:00 Blood Pressure 115/67 02/08/19 20:40 O2 Sat by Pulse Oximetry (%) 98 02/08/19 21:00 Labs: CBC, BMP 02/08/19 12:10 02/08/19 12:10 INR, PTT INR 1.38 (0.83-1.09) H 02/08/19 12:10 Problem List - Problems (1) Altered behavior Assessment/Plan: client maintained on Constant observation until delirium (confabulation) and elated mood subsides. Client currently denies si denies depression HCP Jody believes that he is more confused after taking his medications. Medication reconciliation. awaits pain consult also. Code(s): R46.89 - OTHER SYMPTOMS AND SIGNS INVOLVING APPEARANCE AND BEHAVIOR
[2019-02-08] MEDS: FLUTICASONE/SALMETEROL 100 MCG/50 MCG DISKUS IH SCH (22:33)
[2019-02-08 22:56] LABS: PH,URINE 6.5 (5.0-8.0); URINE APPEARANCE CLEAR; URINE BILIRUBIN NEGATIVE (NEGATIVE); URINE COLOR YELLOW; URINE GLUCOSE (UA) TRACE (NEGATIVE); URINE KETONE TRACE (NEGATIVE); URINE LEUK ESTERASE NEGATIVE (NEGATIVE); URINE NITRITE NEGATIVE (NEGATIVE); URINE PROTEIN NEGATIVE (NEGATIVE)
[2019-02-09] MEDS: SODIUM CHLORIDE 1,000 ML IV SCH ×3 (02:55→17:53)
[2019-02-09] MEDS: oxyCODONE HCL 5 MG TABLET PO PRN ×5 (03:04→21:08)
[2019-02-09] MEDS: GABAPENTIN 300 MG CAPSULE (FP) PO SCH (06:29)
[2019-02-09] MEDS: DOCUSATE SODIUM 100 MG CAPSULE (FP) PO SCH ×3 (06:31→21:01)
[2019-02-09 07:01] LABS: BASO % 0.4 % (0-2.0); HEMATOCRIT 26.5 % (35.4-49); HEMOGLOBIN 8.6 GM/dL (11.7-16.9); LYMPH % 2.8 % (8-40); MCH 29.4 pg (25.7-33.7); MCHC 32.4 g/dl (32.0-35.9); MEAN CELL VOLUME 90.8 fl (80-96); MEAN PLT VOLUME 7.4 fl (7.5-11.1); MONO % 2.7 % (3.8-10.2); NEUT % 94.1 % (42.8-82.8); PLATELET COUNT 80 K/MM3 (134-434); RBC 2.92 M/mm3 (4.00-5.60); RDW 17.2 % (11.9-15.9)
[2019-02-09 07:32] LABS: ALBUMIN 1.9 g/dl (3.4-5.0); BILIRUBIN,TOTAL 0.6 mg/dL (0.2-1); BLOOD UREA NITROGEN 11.7 mg/dL (7-18); CALCIUM 8.1 mg/dL (8.5-10.1); CREATININE 0.4 mg/dL (0.55-1.3); PHOSPHOROUS 2.2 mg/dL (2.5-4.9); POTASSIUM 3.3 mmol/L (3.5-5.1); TOT PROT 5.6 g/dl (6.4-8.2)
[2019-02-09] MEDS ORDERED: POTASSIUM CHLORIDE TABS 20 MEQ TABLET.ER (FP) PO ONE (07:51)
[2019-02-09] MEDS ORDERED: NAPH,MB-DB/K PH,MBDB POWDER PACKET PO ONE (07:52)
[2019-02-09] MEDS ORDERED: KCL 10 MEQ IVPB 10 MEQ/100 ML INFUS.BAG IVPB SCH (08:00)
[2019-02-09] MEDS: FLUTICASONE/SALMETEROL 100 MCG/50 MCG DISKUS IH SCH ×3 (09:57→21:08)
[2019-02-09] MEDS: PANTOPRAZOLE 40 MG TABLET (FP) PO SCH (09:58)
[2019-02-09] MEDS: METHADONE HCL 10 MG TABLET PO SCH ×2 (09:58→21:00)
[2019-02-09] MEDS: ENOXAPARIN NA (PORCINE) 40 MG/0.4 ML DISP.SYRIN SQ SCH (09:58)
[2019-02-09 10:51] LABS: ANISOCYTOSIS 0; MACROCYTOSIS 0; PLATELET ESTIMATE DECREASED
[2019-02-09] MEDS: FERROUS GLUCONATE 324 MG TAB (FP) PO SCH (11:30)
[2019-02-09] MEDS: GABAPENTIN 100 MG CAPSULE (FP) PO SCH ×2 (13:13→21:09)
--- NOTE | 2019-02-09 13:50 | CONSULT ---
Consultation: REQUESTING PROVIDER: Dr. Rajput CONSULT REQUEST: Hematology and oncology consult We have been asked to medically evaluate this patient for PMH lung Ca HISTORY OF PRESENT ILLNESS: The patient is a 68 year old male with a history of right sided squamous cell carcinoma who was brought into the ED by his daughter for AMS and suicidal ideation after taking pain medication. He was recently admitted to [facility] for SVT and was d/c 02/03. Oncologic History -06/01/18: CT chest showing irregular cavitary mass in RUL bronchis and apical, anterior and posterior RUL abutting R mediastinum -06/13/18: PET scan hypermetabolic malignancy in RUL extending into R hilum and mediastinum, hypermetabolic R hilar and paratracheal nodes, increased FDG activity in prostate gland -07/04/18: surgical path from bronchoscopy showed invasive squamous carcinoma moderately to poorly differentiated -07/30/18: no metastatic disease -08/08/18: diagnosis of squamous cell carcinoma of right lung -08/10/18: chemotherapy with carboplatin and paclitaxel, ended on 09/26/18 -01/12/19: began nivolumab therapy, received 1 dose On my interview, the patient was seen sitting upright in bed, awake and alert and uncomfortable appearing. Patient c/o right shoulder pain which is chronic. No other complaints. Patient denies suicidal or homicidal ideation; denies hallucinations. REVIEW OF SYSTEMS: See HPI CONSTITUTIONAL: Absent: fever, chills, diaphoresis, generalized weakness, malaise, loss of appetite, weight change HEENT: Absent: rhinorrhea, nasal congestion, throat pain, throat swelling, difficulty swallowing, mouth swelling, ear pain, eye pain, visual changes CARDIOVASCULAR: Absent: chest pain, syncope, palpitations, irregular heart rate, lightheadedness , peripheral edema RESPIRATORY: Absent: cough, dyspnea with exertion, orthopnea, wheezing, stridor, hemoptysis GASTROINTESTINAL: Absent: abdominal pain, abdominal distension, nausea, vomiting, diarrhea, constipation, melena, hematochezia GENITOURINARY: Absent: dysuria, frequency, urgency, hesitancy, hematuria, flank pain, genital pain MUSCULOSKELETAL: Absent: joint swelling, back pain, neck pain SKIN: Absent: rash, itching, pallor HEMATOLOGIC/IMMUNOLOGIC: Absent: easy bleeding, easy bruising, lymphadenopathy, frequent infections ENDOCRINE: Absent: unexplained weight gain, unexplained weight loss, heat intolerance, cold intolerance NEUROLOGIC: Absent: headache, focal weakness or paresthesias, dizziness, unsteady gait, seizure, mental status changes, bladder or bowel incontinence PSYCHIATRIC: Absent: PHYSICAL EXAMINATION Vital Signs - 24 hr 02/08/19 02/08/19 02/08/19 18:55 19:34 20:40 Temperature 97.3 F L 97.4 F L Pulse Rate 93 H Pulse Rate [ 86 88 Right Radial] Respiratory 20 20 20 Rate Blood Pressure 115/67 Blood Pressure 118/72 98/64 [Right Arm] O2 Sat by Pulse 99 100 98 Oximetry (%) 02/08/19 02/09/19 02/09/19 21:00 09:00 12:00 Temperature 97.5 F L Pulse Rate 108 H Pulse Rate [ Right Radial] Respiratory 20 20 Rate Blood Pressure 144/75 Blood Pressure [Right Arm] O2 Sat by Pulse 98 97 Oximetry (%) GENERAL: Awake, alert, and fully oriented, in no acute distress. HEAD: Normal with no signs of trauma. LUNGS: Breath sounds equal, ronchi heard b/l. no crackles. No accessory muscle use. HEART: Regular rhythm, Tachycardic, normal S1 and S2 without murmur, rub or gallop. ABDOMEN: Soft, nontender, not distended, normoactive bowel sounds. MUSCULOSKELETAL: No tenderness on palpation of the shoulders b/l LOWER EXTREMITIES: 2+ pulses, warm, well-perfused. No calf tenderness. No peripheral edema. PSYCHIATRIC: Cooperative. Good eye contact. Patient minimally interactive 2/2 pain. Laboratory Results - last 24 hr 02/08/19 02/08/19 02/09/19 19:45 22:30 06:05 WBC 8.0 RBC 2.92 L Hgb 8.6 L Hct 26.5 L MCV 90.8 MCH 29.4 MCHC 32.4 RDW 17.2 H Plt Count 80 L MPV 7.4 L Absolute Neuts (auto) 7.5 Neutrophils % 94.1 H Neutrophils % (Manual) 88.1 H Band Neutrophils % 5.9 Lymphocytes % 2.8 L D Lymphocytes % (Manual) 2.0 L Monocytes % 2.7 L Monocytes % (Manual) 4 Eosinophils % 0.0 D Eosinophils % (Manual) 0.0 Basophils % 0.4 D Basophils % (Manual) 0.0 Myelocytes % (Man) 0 Promyelocytes % (Man) 0 Blast Cells % (Manual) 0 Nucleated RBC % 0 Metamyelocytes 0 Hypochromia 0 Platelet Estimate Decreased Polychromasia 0 Poikilocytosis 0 Anisocytosis 0 Microcytosis 0 Macrocytosis 0 Sodium Potassium Chloride Carbon Dioxide Anion Gap BUN Creatinine Est GFR (CKD-EPI)AfAm Est GFR (CKD-EPI)NonAf Random Glucose Lactic Acid 1.3 Calcium Phosphorus Magnesium Total Bilirubin AST ALT Alkaline Phosphatase Total Protein Albumin Urine Color Yellow Urine Appearance Clear Urine pH 6.5 Ur Specific [place] 1.025 Urine Protein Negative Urine Glucose (UA) Trace Urine Ketones Trace H Urine Blood Negative Urine Nitrite Negative Urine Bilirubin Negative Urine Urobilinogen 2.0 Ur Leukocyte Esterase Negative 02/09/19 06:05 WBC RBC Hgb Hct MCV MCH MCHC RDW Plt Count MPV Absolute Neuts (auto) Neutrophils % Neutrophils % (Manual) Band Neutrophils % Lymphocytes % Lymphocytes % (Manual) Monocytes % Monocytes % (Manual) Eosinophils % Eosinophils % (Manual) Basophils % Basophils % (Manual) Myelocytes % (Man) Promyelocytes % (Man) Blast Cells % (Manual) Nucleated RBC % Metamyelocytes Hypochromia Platelet Estimate Polychromasia Poikilocytosis Anisocytosis Microcytosis Macrocytosis Sodium 139 Potassium 3.3 L Chloride 102 Carbon Dioxide 31 Anion Gap 7 L BUN 11.7 Creatinine 0.4 L Est GFR (CKD-EPI)AfAm 141.45 Est GFR (CKD-EPI)NonAf 122.04 Random Glucose 116 H Lactic Acid Calcium 8.1 L Phosphorus 2.2 L Magnesium 2.0 Total Bilirubin 0.6 AST 24 ALT 39 Alkaline Phosphatase 159 H Total Protein 5.6 L Albumin 1.9 L Urine Color Urine Appearance Urine pH Ur Specific [place] Urine Protein Urine Glucose (UA) Urine Ketones Urine Blood Urine Nitrite Urine Bilirubin Urine Urobilinogen Ur Leukocyte Esterase Active Medications Generic Name Dose Route Start Last Admin Trade Name Freq PRN Reason Stop Dose Admin Docusate Sodium 100 mg 02/08/19 22:00 02/09/19 13:23 Colace - PO 100 mg TID SHIRA Administration Enoxaparin Sodium 40 mg 02/09/19 10:00 02/09/19 09:58 Lovenox - SQ 40 mg DAILY SHIRA Administration Ferrous Gluconate 324 mg 02/09/19 10:00 02/09/19 11:30 Fergon - PO 324 mg DAILY SHIRA Administration Gabapentin 100 mg 02/09/19 08:30 02/09/19 13:13 Neurontin - PO Not Given TID SHIRA Sodium Chloride 1,000 mls @ 100 mls/hr 02/08/19 16:45 02/09/19 12:34 Normal Saline - IV 100 mls/hr ASDIR SHIRA Administration Methadone HCl 10 mg 02/08/19 22:00 02/09/19 09:58 Dolophine - PO 10 mg BID SHIRA Administration Oxycodone HCl 5 mg 02/08/19 17:23 02/09/19 12:45 Roxicodone - PO 5 mg Q4H PRN Administration PAIN LEVEL 6-10 Pantoprazole Sodium 40 mg 02/09/19 10:00 02/09/19 09:58 Protonix - PO 40 mg DAILY SHIRA Administration Quetiapine Fumarate 50 mg 02/08/19 22:00 02/08/19 21:31 Seroquel - PO 50 mg HS SHIRA Administration Fluticasone/Salmeterol 1 puff 02/08/19 22:00 02/09/19 10:33 Advair 100mcg/50mcg - IH Not Given BID SHIRA ASSESSMENT/PLAN: The Patient is a 68 y/o male with a history of RUL squamous cell carcinoma stage 4, anemia, BPH, COPD, and GERD who presents for AMS, hypotension and suicidal ideation. # Stage 4 squamous cell carcinoma, w/ chronic pain -Patient placed back on home pain control regimen -agree w/ pn management consult -Patient difficult to treat as he could not tolerate previous chemotherapy treatment 2/2 sfx -agree w/ palliative care consult -GOC discussions ongoing #AMS possibly 2/2 pain medications -Patient difficult to image as he cannot tolerate lying flat -brain mets not ruled out for this reason -Primary team ruling out other causes #depression w/ suicidal ideation and h/o attempts. -per primary team, patient recently attempted suicide and continues to discuss it. -agree with 1:1 -Agree w/ psych consult: -denied SI to psych -apparently recently seen @ [facility] for SI Dispo: We will continue to follow the patient. Thank you for this consultative opportunity. Visit type - Emergency Visit Emergency Visit: Yes ED Registration Date: 02/08/19 Care time: The patient presented to the Emergency Department on the above date and was hospitalized for further evaluation of their emergent condition. - New Patient This patient is new to me today: Yes Date on this admission: 02/09/19 - Critical Care Critical Care patient: No ATTENDING PHYSICIAN STATEMENT I saw and evaluated the patient. I reviewed the resident's note and discussed the case with the resident. I agree with the resident's findings and plan as documented. SUBJECTIVE: OBJECTIVE: ASSESSMENT AND PLAN:
--- NOTE | 2019-02-09 14:09 | PN ---
Physical Exam: SUBJECTIVE: Patient seen and examined. He reports having cough. He reports pain but is not localizing. OBJECTIVE: Vital Signs Period Temp Pulse Resp BP Sys/Seo Pulse Ox Last 24 Hr 97.3 F-97.5 F 86-108 20-20 98-144/64-75 97-100 GENERAL: The patient is awake and alert in mild distress HEAD: Normal with no signs of trauma. EYES: PERRL, extraocular movements intact, sclera anicteric, conjunctiva clear. No ptosis. ENT: Ears normal, nares patent, moist mucous membranes. NECK: Trachea midline, full range of motion, supple. LUNGS: wheezes bilaterally, no crackles, no accessory muscle use. HEART: Regular rate and rhythm, S1, S2 without murmur, rub or gallop. ABDOMEN: Soft, nondistended EXTREMITIES: 2+ pulses, warm, well-perfused, no edema. NEUROLOGICAL: Cranial nerves II through XII grossly intact. Normal speech, gait not observed. PSYCH: sad SKIN: Warm, dry, normal turgor, no rashes or lesions noted Laboratory Results - last 24 hr 02/08/19 02/08/19 02/09/19 19:45 22:30 06:05 WBC 8.0 RBC 2.92 L Hgb 8.6 L Hct 26.5 L MCV 90.8 MCH 29.4 MCHC 32.4 RDW 17.2 H Plt Count 80 L MPV 7.4 L Absolute Neuts (auto) 7.5 Neutrophils % 94.1 H Neutrophils % (Manual) 88.1 H Band Neutrophils % 5.9 Lymphocytes % 2.8 L D Lymphocytes % (Manual) 2.0 L Monocytes % 2.7 L Monocytes % (Manual) 4 Eosinophils % 0.0 D Eosinophils % (Manual) 0.0 Basophils % 0.4 D Basophils % (Manual) 0.0 Myelocytes % (Man) 0 Promyelocytes % (Man) 0 Blast Cells % (Manual) 0 Nucleated RBC % 0 Metamyelocytes 0 Hypochromia 0 Platelet Estimate Decreased Polychromasia 0 Poikilocytosis 0 Anisocytosis 0 Microcytosis 0 Macrocytosis 0 Sodium Potassium Chloride Carbon Dioxide Anion Gap BUN Creatinine Est GFR (CKD-EPI)AfAm Est GFR (CKD-EPI)NonAf Random Glucose Lactic Acid 1.3 Calcium Phosphorus Magnesium Total Bilirubin AST ALT Alkaline Phosphatase Total Protein Albumin Urine Color Yellow Urine Appearance Clear Urine pH 6.5 Ur Specific [place] 1.025 Urine Protein Negative Urine Glucose (UA) Trace Urine Ketones Trace H Urine Blood Negative Urine Nitrite Negative Urine Bilirubin Negative Urine Urobilinogen 2.0 Ur Leukocyte Esterase Negative 02/09/19 06:05 WBC RBC Hgb Hct MCV MCH MCHC RDW Plt Count MPV Absolute Neuts (auto) Neutrophils % Neutrophils % (Manual) Band Neutrophils % Lymphocytes % Lymphocytes % (Manual) Monocytes % Monocytes % (Manual) Eosinophils % Eosinophils % (Manual) Basophils % Basophils % (Manual) Myelocytes % (Man) Promyelocytes % (Man) Blast Cells % (Manual) Nucleated RBC % Metamyelocytes Hypochromia Platelet Estimate Polychromasia Poikilocytosis Anisocytosis Microcytosis Macrocytosis Sodium 139 Potassium 3.3 L Chloride 102 Carbon Dioxide 31 Anion Gap 7 L BUN 11.7 Creatinine 0.4 L Est GFR (CKD-EPI)AfAm 141.45 Est GFR (CKD-EPI)NonAf 122.04 Random Glucose 116 H Lactic Acid Calcium 8.1 L Phosphorus 2.2 L Magnesium 2.0 Total Bilirubin 0.6 AST 24 ALT 39 Alkaline Phosphatase 159 H Total Protein 5.6 L Albumin 1.9 L Urine Color Urine Appearance Urine pH Ur Specific [place] Urine Protein Urine Glucose (UA) Urine Ketones Urine Blood Urine Nitrite Urine Bilirubin Urine Urobilinogen Ur Leukocyte Esterase Active Medications Generic Name Dose Route Start Last Admin Trade Name Freq PRN Reason Stop Dose Admin Docusate Sodium 100 mg 02/08/19 22:00 02/09/19 13:23 Colace - PO 100 mg TID SHIRA Administration Enoxaparin Sodium 40 mg 02/09/19 10:00 02/09/19 09:58 Lovenox - SQ 40 mg DAILY SHIRA Administration Ferrous Gluconate 324 mg 02/09/19 10:00 02/09/19 11:30 Fergon - PO 324 mg DAILY SHIRA Administration Gabapentin 100 mg 02/09/19 08:30 02/09/19 13:13 Neurontin - PO Not Given TID SHIRA Sodium Chloride 1,000 mls @ 100 mls/hr 02/08/19 16:45 02/09/19 12:34 Normal Saline - IV 100 mls/hr ASDIR SHIRA Administration Methadone HCl 10 mg 02/08/19 22:00 02/09/19 09:58 Dolophine - PO 10 mg BID SHIRA Administration Oxycodone HCl 5 mg 02/08/19 17:23 02/09/19 12:45 Roxicodone - PO 5 mg Q4H PRN Administration PAIN LEVEL 6-10 Pantoprazole Sodium 40 mg 02/09/19 10:00 02/09/19 09:58 Protonix - PO 40 mg DAILY SHIRA Administration Quetiapine Fumarate 50 mg 02/08/19 22:00 02/08/19 21:31 Seroquel - PO 50 mg HS SHIRA Administration Fluticasone/Salmeterol 1 puff 02/08/19 22:00 02/09/19 10:33 Advair 100mcg/50mcg - IH Not Given BID SHIRA ASSESSMENT/PLAN: Mr. Gonzalez is a 68 y/o male with a history of RUL squamous cell carcinoma stage 4 , anemia, BPH, COPD, and GERD who presents for AMS and hypotension. #Hypotension Likely 2/2 to pain medication. Afebrile. No leukocytosis. Sepsis workup negative - hold antihypertensive medication #loss of appetite -marinol start #Stage 4 squamous cell carcinoma, with chronic pain -pain medication as per Dr Zhao per last visit, will f/u for any further reccomendations -oxycodone 5 q4h prn, methadone 10 q12 -began discussion of palliative with , needs to be continued with the health care proxy his daughter #[facility] MRI from December- no metastasis to brain -Seroquel 50mg QHS -Seroquel 25mg PRN once a day for agitation #depression 1:1 ordered -psych following #GERD continue pantoprazole #COPD continue Advair #DVT ppx Lovenox 40 sq daily FEN regular diet Dispo: monitor on med surg Visit type - Emergency Visit Emergency Visit: Yes ED Registration Date: 02/08/19 Care time: The patient presented to the Emergency Department on the above date and was hospitalized for further evaluation of their emergent condition. - New Patient This patient is new to me today: Yes Date on this admission: 02/09/19 - Critical Care Critical Care patient: No - Discharge Referral Referred to [facility] Med P.C.: No ATTENDING PHYSICIAN STATEMENT I saw and evaluated the patient. I reviewed the resident's note and discussed the case with the resident. I agree with the resident's findings and plan as documented. SUBJECTIVE: OBJECTIVE: ASSESSMENT AND PLAN:
--- NOTE | 2019-02-09 14:15 | PN ---
Teaching Attending Note Name of Resident: Sherry Kapadia ATTENDING PHYSICIAN STATEMENT I saw and evaluated the patient. I reviewed the resident's note and discussed the case with the resident. I agree with the resident's findings and plan as documented. SUBJECTIVE:says he does not feel good but will not elaborate. does not answer remaining ROS OBJECTIVE: Last Vital Signs Temp Pulse Resp BP Pulse Ox 97.5 F L 108 H 20 144/75 97 02/09/19 12:00 02/09/19 12:00 02/09/19 12:00 02/09/19 12:00 02/09/19 09:00 General alert but refuses to answer my questions CV S1 S2 tachy Lungs CTA B/L no wheezing/rales/rhonchi Abdomen soft NT/ND Extremities no edema ASSESSMENT AND PLAN: 68yo M with PMH RUL squamous carcinoma on chemo and immunotherapy, SBO s/o bowel resection, polysubstance use, chronic pain syndrome on methadone was sent from [facility] for hypotension 1. Hypotension- unclear cause.inaccurate reading initially? now normotensive. good response to IV hydration. will d/c IVF at this time. sepsis workup negative. 2. Diffuse pain-worse in the back. bone scan earlier this year showing DJD however could not rule out mets, no MRI has been done as pt refuses. concern if does have bone mets perhaps would benefit from dexamethasone for some pain relief. has been in talks for stimulator however has not been ideal candidate for placement at this point. will re-start pain management started by his specialist who did see him last visit. has been re-consulted by ER staff. will titrate down gabapentin at families request. may be limited options at this time 3. Suicidal idealizations- as per was at [facility] 2 days ago after 2 suicide attempts. unclear what was done. does not verbalize any thoughts at this time. psych consulted on 1:1 observation 4. hypokalemia- Kcl po 5. hypophosphatemia- neutraphos 6. r/o acute metabolic encephalopathy- appears alert and selectively answers questions which he has done in past. refuses to go for imaging. some medications could be adding to his confusion. including seroquel. will d/w pscyh about possibly titrating down seroquel and if would be good candidate for risperdone as this may help with appetite 7. RUL squamous carcinoma- not a candidate for immunotherapy at this time due to inability to tolerate it. will need to speak with oncology if there are any other options at this time. ECOG status seems poor. oncology consult to discuss prognosis. palliative care consult 8. SBO s/p resection 9. DVT ppx- lovenox
--- NOTE | 2019-02-09 15:08 | EKG ---
Test Reason : Blood Pressure : / mmHG Vent. Rate : 092 BPM Atrial Rate : 092 BPM P-R Int : 154 ms QRS Dur : 080 ms QT Int : 394 ms P-R-T Axes : 060 039 049 degrees QTc Int : 487 ms NORMAL SINUS RHYTHM WITH SINUS ARRHYTHMIA PROLONGED QT ABNORMAL ECG WHEN COMPARED WITH ECG OF 26-JAN-2019 01:59, NO SIGNIFICANT CHANGE WAS FOUND Confirmed by URSULA FOSTER MD ([id number]) on 02/09/2019 3:07:48 PM Referred By: Confirmed By:URSULA FOSTER MD
--- NOTE | 2019-02-09 19:04 | PN ---
Teaching Attending Note Name of Resident: Kimo Chau ATTENDING PHYSICIAN STATEMENT I saw and evaluated the patient. I reviewed the resident's note and discussed the case with the resident. I agree with the resident's findings and plan as documented. ASSESSMENT AND PLAN: The Patient is a 68 y/o male with a history of RUL squamous cell carcinoma stage 4, anemia, BPH, COPD, and GERD who presents for AMS, hypotension and suicidal ideation. Locally advanced squamous cell carcinoma, w/ RUL mass s/p carbo/taol /RT and most recently 1 cycle pembrolizumab, now with chronic pain RUE Pain management challenging with delicate balance between pain relief and delirium Discussed overall condition /performance status and challenges to treatment with patients daughter Family meeting early next week to decide on further course of care
[2019-02-09] MEDS ORDERED: QUEtiapine FUMARATE 25 MG TABLET (FP) ONE (20:14)
[2019-02-09] MEDS: DRONABINOL 5 MG CAPSULE PO SCH (21:08)
[2019-02-09] MEDS: QUEtiapine FUMARATE 50 MG TABLET PO SCH (21:09)
[2019-02-09] MEDS ORDERED: ALBUTEROL SO4 0.083% IH SOL 2.5 MG/3 ML VIAL.NEB. NEB ONE ×2 (21:26→22:08)
[2019-02-10] MEDS: oxyCODONE HCL 5 MG TABLET PO PRN ×4 (04:12→20:54)
[2019-02-10] MEDS: DOCUSATE SODIUM 100 MG CAPSULE (FP) PO SCH ×3 (06:28→20:59)
[2019-02-10] MEDS: GABAPENTIN 100 MG CAPSULE (FP) PO SCH ×4 (06:29→21:00)
--- NOTE | 2019-02-10 07:01 | PN ---
Physical Exam: SUBJECTIVE: Patient seen and examined. Pt is calm but nursing staff reports recent restlessness. He reports upper back pain. OBJECTIVE: Vital Signs Period Temp Pulse Resp BP Sys/Seo Pulse Ox Last 24 Hr 97.5 F-98.1 F 108-131 20-20 130-144/75-81 97-97 GENERAL: The patient is awake and alert in mild distress HEAD: Normal with no signs of trauma. EYES: PERRL, extraocular movements intact, sclera anicteric, conjunctiva clear. No ptosis. ENT: Ears normal, nares patent, moist mucous membranes. NECK: Trachea midline, full range of motion, supple. LUNGS: wheezes bilaterally, no crackles, no accessory muscle use. HEART: Regular rate and rhythm, S1, S2 without murmur, rub or gallop. ABDOMEN: Soft, nondistended EXTREMITIES: 2+ pulses, warm, well-perfused, no edema. NEUROLOGICAL: Cranial nerves II through XII grossly intact. Normal speech, gait not observed. PSYCH: sad SKIN: Warm, dry, normal turgor, no rashes or lesions noted Laboratory Results - last 24 hr 02/09/19 02/09/19 06:05 06:05 WBC 8.0 RBC 2.92 L Hgb 8.6 L Hct 26.5 L MCV 90.8 MCH 29.4 MCHC 32.4 RDW 17.2 H Plt Count 80 L MPV 7.4 L Absolute Neuts (auto) 7.5 Neutrophils % 94.1 H Neutrophils % (Manual) 88.1 H Band Neutrophils % 5.9 Lymphocytes % 2.8 L D Lymphocytes % (Manual) 2.0 L Monocytes % 2.7 L Monocytes % (Manual) 4 Eosinophils % 0.0 D Eosinophils % (Manual) 0.0 Basophils % 0.4 D Basophils % (Manual) 0.0 Myelocytes % (Man) 0 Promyelocytes % (Man) 0 Blast Cells % (Manual) 0 Nucleated RBC % 0 Metamyelocytes 0 Hypochromia 0 Platelet Estimate Decreased Polychromasia 0 Poikilocytosis 0 Anisocytosis 0 Microcytosis 0 Macrocytosis 0 Sodium 139 Potassium 3.3 L Chloride 102 Carbon Dioxide 31 Anion Gap 7 L BUN 11.7 Creatinine 0.4 L Est GFR (CKD-EPI)AfAm 141.45 Est GFR (CKD-EPI)NonAf 122.04 Random Glucose 116 H Calcium 8.1 L Phosphorus 2.2 L Magnesium 2.0 Total Bilirubin 0.6 AST 24 ALT 39 Alkaline Phosphatase 159 H Total Protein 5.6 L Albumin 1.9 L Active Medications Generic Name Dose Route Start Last Admin Trade Name Freq PRN Reason Stop Dose Admin Docusate Sodium 100 mg 02/08/19 22:00 02/10/19 06:28 Colace - PO 100 mg TID SHIRA Administration Dronabinol 5 mg 02/09/19 22:00 02/09/19 21:08 Marinol - PO 5 mg BID SHIRA Administration Enoxaparin Sodium 40 mg 02/09/19 10:00 02/09/19 09:58 Lovenox - SQ 40 mg DAILY SHIRA Administration Ferrous Gluconate 324 mg 02/09/19 10:00 02/09/19 11:30 Fergon - PO 324 mg DAILY SHIRA Administration Gabapentin 100 mg 02/09/19 08:30 02/10/19 06:29 Neurontin - PO Not Given TID [facility] Sodium Chloride 1,000 mls @ 100 mls/hr 02/08/19 16:45 02/09/19 17:53 Normal Saline - IV Not Given ASDIR SHIRA Methadone HCl 10 mg 02/08/19 22:00 02/09/19 21:00 Dolophine - PO 10 mg BID SHIRA Administration Oxycodone HCl 5 mg 02/08/19 17:23 02/10/19 04:12 Roxicodone - PO 5 mg Q4H PRN Administration PAIN LEVEL 6-10 Pantoprazole Sodium 40 mg 02/09/19 10:00 02/09/19 09:58 Protonix - PO 40 mg DAILY SHIRA Administration Quetiapine Fumarate 50 mg 02/08/19 22:00 02/09/19 21:09 Seroquel - PO 50 mg HS SHIRA Administration Quetiapine Fumarate 25 mg 02/09/19 16:17 Seroquel - PO DAILY PRN AGITATION Fluticasone/Salmeterol 1 puff 02/08/19 22:00 02/09/19 21:08 Advair 100mcg/50mcg - IH Not Given BID [facility] ASSESSMENT/PLAN: Mr. Gonzalez is a 68 y/o male with a history of RUL squamous cell carcinoma stage 4 , anemia, BPH, COPD, and GERD who presents for AMS and hypotension. #AMS A&Ox3 but lethargic. Same presentation as last admission. MRI from December- no metastasis to brain. Pt refusing CT. -Seroquel 50mg QHS -Seroquel 25mg PRN once a day for agitation #hypokalemia 3.4 -repleted -monitor #hypotension, resolved Likely 2/2 to pain medication. Afebrile. No leukocytosis. Sepsis workup negative. - hold antihypertensive medication #loss of appetite -marinol start #stage 4 squamous cell carcinoma, with chronic pain -oxycodone 5 q4h prn, methadone 10 q12 -family considering hospice care -heme onc- start decadron 4mg Q8H IV #depression Reported to have suicidal thoughts at admission. Not present now. -1:1 ordered -Moody vest as needed -psych following #GERD continue pantoprazole #COPD continue Advair DVT ppx Lovenox 40 sq daily FEN regular diet monitor K NS 100 Dispo: monitor on med surg FULL CODE Visit type - Emergency Visit Emergency Visit: Yes ED Registration Date: 02/08/19 Care time: The patient presented to the Emergency Department on the above date and was hospitalized for further evaluation of their emergent condition. - New Patient This patient is new to me today: No - Critical Care Critical Care patient: No - Discharge Referral Referred to [facility] Med P.C.: No ATTENDING PHYSICIAN STATEMENT I saw and evaluated the patient. I reviewed the resident's note and discussed the case with the resident. I agree with the resident's findings and plan as documented. SUBJECTIVE: OBJECTIVE: ASSESSMENT AND PLAN:
[2019-02-10 07:14] LABS: HEMATOCRIT 23.7 % (35.4-49); HEMOGLOBIN 7.5 GM/dL (11.7-16.9); LYMPH % 2.5 % (8-40); MCH 29.1 pg (25.7-33.7); MCHC 31.7 g/dl (32.0-35.9); MEAN CELL VOLUME 91.9 fl (80-96); MEAN PLT VOLUME 7.8 fl (7.5-11.1); MONO % 2.8 % (3.8-10.2); NEUT % 94.7 % (42.8-82.8); PLATELET COUNT 69 K/MM3 (134-434); RBC 2.58 M/mm3 (4.00-5.60); RDW 17.5 % (11.9-15.9); WHITE BLOOD COUNT 8.2 K/mm3 (4.0-10.0)
[2019-02-10 09:13] LABS: BLOOD UREA NITROGEN 10.1 mg/dL (7-18); CALCIUM 7.8 mg/dL (8.5-10.1); CREATININE 0.4 mg/dL (0.55-1.3); MAGNESIUM 1.9 mg/dL (1.8-2.4); POTASSIUM 3.4 mmol/L (3.5-5.1)
[2019-02-10] MEDS: FERROUS GLUCONATE 324 MG TAB (FP) PO SCH ×2 (09:43→10:42)
[2019-02-10] MEDS: PANTOPRAZOLE 40 MG TABLET (FP) PO SCH ×2 (09:43→10:43)
[2019-02-10] MEDS: ENOXAPARIN NA (PORCINE) 40 MG/0.4 ML DISP.SYRIN SQ SCH (09:43)
[2019-02-10] MEDS: METHADONE HCL 10 MG TABLET PO SCH ×2 (09:44→20:59)
[2019-02-10] MEDS: DRONABINOL 5 MG CAPSULE PO SCH (09:44)
[2019-02-10] MEDS: FLUTICASONE/SALMETEROL 100 MCG/50 MCG DISKUS IH SCH ×2 (09:54→21:01)
[2019-02-10 09:55] LABS: ANISOCYTOSIS 0; MACROCYTOSIS 0; PLATELET ESTIMATE DECREASED
[2019-02-10] MEDS ORDERED: POTASSIUM CHLORIDE TABS 20 MEQ TABLET.ER (FP) PO ONE (11:48)
--- NOTE | 2019-02-10 12:53 | PN ---
Teaching Attending Note Name of Resident: Sherry Kapadia ATTENDING PHYSICIAN STATEMENT I saw and evaluated the patient. I reviewed the resident's note and discussed the case with the resident. I agree with the resident's findings and plan as documented. SUBJECTIVE:no new complaints. states pain is not controlled with current therapy. does not verbalize any feelings of wanting to hurt himself or other. denies CP, SOB, fever,c [place], n/V/C/D OBJECTIVE: Last Vital Signs Temp Pulse Resp BP Pulse Ox 98.2 F 110 H 18 134/80 98 02/10/19 08:00 02/10/19 08:00 02/10/19 08:00 02/10/19 08:00 02/10/19 09:00 General alert, some garbled speech CV S1 S2 tachy Lungs CTA B/L no wheezing/rales/rhonchi Abdomen soft NT/ND Extremities no edema ASSESSMENT AND PLAN: 68yo M with PMH RUL squamous carcinoma on chemo and immunotherapy, SBO s/o bowel resection, polysubstance use, chronic pain syndrome on methadone was sent from [facility] for hypotension 1. Hypotension- unclear cause.inaccurate reading initially? now normotensive. 2. Diffuse pain-worse in the back. bone scan earlier this year showing DJD however could not rule out mets, no MRI has been done as pt refuses. concern if does have bone mets perhaps would benefit from dexamethasone for some pain relief. has been in talks for stimulator however has not been ideal candidate for placement at this point. will re-start pain management started by his specialist who did see him last visit. has been re-consulted by ER staff. will titrate down gabapentin at families request. may be limited options at this time 3. Suicidal idealizations- as per was at [facility] 2 days ago after 2 suicide attempts. unclear what was done. does not verbalize any thoughts at this time. psych consulted on 1:1 observation 4. hypokalemia-resolved 5. hypophosphatemia- resolved 6. r/o acute metabolic encephalopathy- appears alert and selectively answers questions which he has done in past. refuses to go for imaging. 7. RUL squamous carcinoma- not a candidate for immunotherapy at this time due to inability to tolerate it. will need to speak with oncology if there are any other options at this time. ECOG status seems poor. oncology consult to discuss prognosis. palliative care consult 8. SBO s/p resection 9. DVT ppx- lovenox
[2019-02-10 13:22] LABS: BASO % 0.2 % (0-2.0); HEMATOCRIT 25.4 % (35.4-49); HEMOGLOBIN 8.2 GM/dL (11.7-16.9); LYMPH % 2.3 % (8-40); MCH 29.5 pg (25.7-33.7); MCHC 32.3 g/dl (32.0-35.9); MEAN CELL VOLUME 91.5 fl (80-96); MEAN PLT VOLUME 8.7 fl (7.5-11.1); MONO % 3.4 % (3.8-10.2); NEUT % 94.1 % (42.8-82.8); PLATELET COUNT 75 K/MM3 (134-434); RBC 2.77 M/mm3 (4.00-5.60); RDW 17.7 % (11.9-15.9)
[2019-02-10 14:01] VITALS: BMI 20.5
[2019-02-10 14:24] LABS: ANISOCYTOSIS 2+; MACROCYTOSIS 0; PLATELET ESTIMATE DECREASED; TARGET CELLS 1+
[2019-02-10] MEDS: DEXAMETHASONE SOD PHOSPHATE 4 MG/1 ML VIAL IVPB SCH (17:09)
[2019-02-10] MEDS ORDERED: QUEtiapine FUMARATE 25 MG TABLET (FP) ONE (20:49)
[2019-02-10] MEDS: QUEtiapine FUMARATE 50 MG TABLET PO SCH (21:00)
[2019-02-10] MEDS ORDERED: PT OWN MED (PYXIS) ONE ×2 (21:14→21:36)
[2019-02-10] MEDS: [UNRECOGNIZED DRUG - OTHER] PO SCH (21:30)
[2019-02-10] MEDS ORDERED: [UNRECOGNIZED DRUG - OTHER] PO SCH (22:00)
[2019-02-10] MEDS ORDERED: ALBUTEROL SO4 2.5/IPRATROPIUM 0.5 INH SOL 3 ML VIAL.NEB. NEB ONE (22:49)
[2019-02-11] MEDS: DEXAMETHASONE SOD PHOSPHATE 4 MG/1 ML VIAL IVPB SCH ×2 (03:09→10:25)
[2019-02-11] MEDS: GABAPENTIN 100 MG CAPSULE (FP) PO SCH ×3 (06:13→22:17)
[2019-02-11] MEDS: DOCUSATE SODIUM 100 MG CAPSULE (FP) PO SCH ×3 (06:13→22:15)
--- NOTE | 2019-02-11 07:48 | PN ---
Progress Note (short form) - Note Progress Note: c/o back pain. states he has difficulty lifting head due to his back pain. denies CP, fever, chills, N/V/C/D Current Medications Generic Name Dose Route Start Last Admin Trade Name Freq PRN Reason Stop Dose Admin Dexamethasone Sodium Phosphate 4 mg 02/10/19 18:00 02/11/19 03:09 Decadron Injection - IVPB 4 mg Q8H-IV SHIRA Administration Docusate Sodium 100 mg 02/08/19 22:00 02/11/19 06:13 Colace - PO 100 mg TID SHIRA Administration Enoxaparin Sodium 40 mg 02/09/19 10:00 02/10/19 09:43 Lovenox - SQ 40 mg DAILY SHIRA Administration Ferrous Gluconate 324 mg 02/09/19 10:00 02/10/19 10:42 Fergon - PO Not Given DAILY SHIRA Gabapentin 100 mg 02/09/19 08:30 02/11/19 06:13 Neurontin - PO 100 mg TID SHIRA Administration Methadone HCl 10 mg 02/08/19 22:00 02/10/19 20:59 Dolophine - PO 10 mg BID SHIRA Administration Oxycodone HCl 5 mg 02/08/19 17:23 02/10/19 20:54 Roxicodone - PO 5 mg Q4H PRN Administration PAIN LEVEL 6-10 Pantoprazole Sodium 40 mg 02/09/19 10:00 02/10/19 10:43 Protonix - PO Not Given DAILY SHIRA Etain Balance 1 each 02/10/19 22:00 02/10/19 21:30 Capsules Pt Own Med PO 1 each (Pyxis) HS SHIRA Administration Quetiapine Fumarate 50 mg 02/08/19 22:00 02/10/19 21:00 Seroquel - PO 50 mg HS SHIRA Administration Quetiapine Fumarate 25 mg 02/09/19 16:17 Seroquel - PO DAILY PRN AGITATION Fluticasone/Salmeterol 1 puff 02/08/19 22:00 02/10/19 21:01 Advair 100mcg/50mcg - IH 1 puff BID SHIRA Administration Last Vital Signs Temp Pulse Resp BP Pulse Ox 98 F 102 H 18 133/68 99 02/11/19 06:00 02/11/19 06:00 02/11/19 06:00 10/05/19 06:00 02/10/19 21:00 General alert, some aphasia CV S1 S2 tachy Lungs CTA B/L no wheezing/rales/rhonchi Abdomen soft NT/ND Extremities no edema back +bone point tenderness along thoracic spine CBCD WBC 7.1 K/mm3 (4.0-10.0) 02/11/19 06:30 RBC 2.98 M/mm3 (4.00-5.60) L 02/11/19 06:30 Hgb 8.9 GM/dL (11.7-16.9) L 02/11/19 06:30 Hct 27.5 % (35.4-49) L 02/11/19 06:30 MCV 92.3 fl (80-96) 02/11/19 06:30 MCHC 32.4 g/dl (32.0-35.9) 02/11/19 06:30 RDW 18.1 % (11.9-15.9) H 02/11/19 06:30 Plt Count 63 K/MM3 (134-434) L 02/11/19 06:30 MPV 8.2 fl (7.5-11.1) 02/11/19 06:30 CMP Sodium 138 mmol/L (136-145) 02/11/19 06:30 Potassium 4.1 mmol/L (3.5-5.1) 02/11/19 06:30 Chloride 102 mmol/L (98-107) 02/11/19 06:30 Carbon Dioxide 28 mmol/L (21-32) 02/11/19 06:30 Anion Gap 8 MMOL/L (8-16) 02/11/19 06:30 BUN 12.7 mg/dL (7-18) 02/11/19 06:30 Creatinine 0.5 mg/dL (0.55-1.3) L 02/11/19 06:30 Calcium 8.3 mg/dL (8.5-10.1) L 02/11/19 06:30 Total Bilirubin 0.6 mg/dL (0.2-1) 02/09/19 06:05 AST 24 U/L (15-37) 02/09/19 06:05 ALT 39 U/L (13-61) 02/09/19 06:05 Alkaline Phosphatase 159 U/L (45-117) H 02/09/19 06:05 Total Protein 5.6 g/dl (6.4-8.2) L 02/09/19 06:05 Albumin 1.9 g/dl (3.4-5.0) L 02/09/19 06:05 ASSESSMENT AND PLAN: 68yo M with PMH RUL squamous carcinoma on chemo and immunotherapy, SBO s/o bowel resection, polysubstance use, chronic pain syndrome on methadone was sent from [facility] for hypotension 1. Hypotension- unclear cause.inaccurate reading initially? now normotensive. 2. Diffuse pain-worse in the back. will give lidoderm patch. appears to have some relief with dex started yesterday as requesting oxy less often. titrate down gabapentin. awaiting size painter. 3. Suicidal idealizations- as per was at [place] 2 days ago after 2 suicide attempts. unclear what was done. does not verbalize any thoughts at this time. psych consulted on 1:1 observation 4. hyperglycemia- due to steroids. will start BGM monitoring BID to ensure not going to elevated. insulin coverage 5. hypokalemia-resolved 6. hypophosphatemia- resolved 7. r/o acute metabolic encephalopathy- appears alert and more responsive today. 8. RUL squamous carcinoma- not a candidate for immunotherapy at this time due to inability to tolerate it. will need to speak with oncology if there are any other options at this time. ECOG status seems poor. oncology consult to discuss prognosis. palliative care consult 9. SBO s/p resection 10. DVT ppx- lovenox 11. awaiting palliative care eval which should be here Wednesday. family agreeable to [place] placement. referral sent Visit type - Emergency Visit Emergency Visit: Yes ED Registration Date: 02/08/19 Care time: The patient presented to the Emergency Department on the above date and was hospitalized for further evaluation of their emergent condition. - New Patient This patient is new to me today: No - Critical Care Critical Care patient: No - Discharge Referral Referred to [facility] Med P.C.: No
[2019-02-11 07:53] LABS: HEMATOCRIT 27.5 % (35.4-49); HEMOGLOBIN 8.9 GM/dL (11.7-16.9); LYMPH % 1.4 % (8-40); MCH 29.9 pg (25.7-33.7); MCHC 32.4 g/dl (32.0-35.9); MEAN CELL VOLUME 92.3 fl (80-96); MEAN PLT VOLUME 8.2 fl (7.5-11.1); MONO % 2.4 % (3.8-10.2); NEUT % 96.2 % (42.8-82.8); PLATELET COUNT 63 K/MM3 (134-434); RBC 2.98 M/mm3 (4.00-5.60); RDW 18.1 % (11.9-15.9); WHITE BLOOD COUNT 7.1 K/mm3 (4.0-10.0)
[2019-02-11 08:04] LABS: BLOOD UREA NITROGEN 12.7 mg/dL (7-18); CALCIUM 8.3 mg/dL (8.5-10.1); CREATININE 0.5 mg/dL (0.55-1.3); POTASSIUM 4.1 mmol/L (3.5-5.1)
[2019-02-11] MEDS: oxyCODONE HCL 5 MG TABLET PO PRN ×2 (10:24→17:01)
[2019-02-11] MEDS: ENOXAPARIN NA (PORCINE) 40 MG/0.4 ML DISP.SYRIN SQ SCH ×2 (10:25→10:43)
[2019-02-11] MEDS: LIDOCAINE 5% TOPICAL PATCH TP SCH (10:25)
[2019-02-11] MEDS: METHADONE HCL 10 MG TABLET PO SCH ×2 (10:25→22:16)
[2019-02-11] MEDS: PANTOPRAZOLE 40 MG TABLET (FP) PO SCH (10:25)
[2019-02-11] MEDS: QUEtiapine FUMARATE 25 MG TABLET (FP) PO PRN ×2 (10:25→22:25)
[2019-02-11] MEDS: FERROUS GLUCONATE 324 MG TAB (FP) PO SCH (10:25)
[2019-02-11] MEDS: FLUTICASONE/SALMETEROL 100 MCG/50 MCG DISKUS IH SCH ×2 (10:42→22:20)
[2019-02-11 12:09] LABS: HEMATOCRIT 30.6 % (35.4-49); HEMOGLOBIN 9.6 GM/dL (11.7-16.9); MCH 29.1 pg (25.7-33.7); MCHC 31.3 g/dl (32.0-35.9); MEAN CELL VOLUME 92.7 fl (80-96); MEAN PLT VOLUME 7.7 fl (7.5-11.1); PLATELET COUNT 66 K/MM3 (134-434); WHITE BLOOD COUNT 6.8 K/mm3 (4.0-10.0)
--- NOTE | 2019-02-11 13:20 | PN ---
Progress Note (short form) - Note Progress Note: The Patient is a 68 y/o male with a history of RUL squamous cell carcinoma stage 4, anemia, BPH, COPD, and GERD who presents for AMS, hypotension and suicidal ideation. Locally advanced squamous cell carcinoma, w/ RUL mass s/p carbo/taol /RT and most recently 1 cycle pembrolizumab, now with chronic pain RUE Pain management challenging with delicate balance between pain relief and delirium Discussed overall condition /performance status and challenges to treatment with patients daughter Family meeting early next week to decide on further course of care LUE duplex dexamethasone for pain relief patient is on medicalmarijuana at home --discussed with pharmacy
[2019-02-11 13:44] LABS: ANISOCYTOSIS 1+; MACROCYTOSIS 1+; OVALOCYTE 1+; PLATELET ESTIMATE DECREASED; TARGET CELLS 0
[2019-02-11] MEDS: DEXAMETHASONE 4 MG TABLET (FP) PO SCH ×2 (15:00→22:17)
[2019-02-11] MEDS: guaiFENesin 200 MG/10 ML 10 ML UNIT-DOSE CUPS PO PRN (17:02)
[2019-02-11] MEDS: INSULIN SLIDING SCALE (NOVOLOG) 1 VIAL SQ SCH ×2 (17:58→18:46)
[2019-02-11] MEDS: LORazepam 0.5 MG TABLET PO PRN (18:37)
--- NOTE | 2019-02-11 19:20 | PN ---
Progress Note (short form) - Note Progress Note: I have seen and examined Karl Gonzalez. 68 y/o gentleman with a history of RUL squamous cell carcinoma stage 4, anemia, BPH, COPD, and GERD who presented for AMS, hypotension and suicidal ideation. S: c/o pain, requesting more pain medications O: General in moderate/severe distress due to pain HEENT MMM CVS S1, S2 Lung CTAB Abdomen. Soft, NT, ND Neuro: Moves all extremities Assessment and Plan 68 y/o alicia with Locally advanced squamous cell carcinoma, w/ RUL mass s/p carbo/taol /RT and most recently 1 cycle pembrolizumab, now with chronic pain RUE Pain management challenging with delicate balance between pain relief and delirium Discussed overall condition /performance status and challenges to treatment with patients daughter Family meeting early next week to decide on further course of care LUE duplex dexamethasone for pain relief patient is on medical marijuana at home --Dr. Velazquez discussed with pharmacy Discussed with daughter.
[2019-02-11] MEDS ORDERED: QUEtiapine FUMARATE 25 MG TABLET (FP) ONE (22:09)
[2019-02-11] MEDS ORDERED: PT OWN MED DRAWER 7, Y5N ONE ×2 (22:11→23:15)
[2019-02-11] MEDS: LIDOCAINE PATCH REMOVAL MC SCH (22:18)
[2019-02-11] MEDS: QUEtiapine FUMARATE 50 MG TABLET PO SCH (22:26)
[2019-02-11] MEDS ORDERED: PT OWN MED (PYXIS) ONE (23:50)
[2019-02-11] MEDS: [UNRECOGNIZED DRUG - OTHER] PO SCH (23:54)
[2019-02-12] MEDS ORDERED: INSULIN (NOVOLOG) ASPART 100 UNITS/ML 10ML VIAL ONE (05:30)
[2019-02-12] MEDS: GABAPENTIN 100 MG CAPSULE (FP) PO SCH ×4 (05:39→21:21)
[2019-02-12] MEDS: DOCUSATE SODIUM 100 MG CAPSULE (FP) PO SCH ×3 (05:39→21:21)
[2019-02-12] MEDS: DEXAMETHASONE 4 MG TABLET (FP) PO SCH ×3 (05:40→21:21)
[2019-02-12] MEDS: INSULIN SLIDING SCALE (NOVOLOG) 1 VIAL SQ SCH ×2 (06:37→16:43)
[2019-02-12] MEDS: LORazepam 0.5 MG TABLET PO PRN ×2 (07:58→18:46)
[2019-02-12] MEDS: guaiFENesin 200 MG/10 ML 10 ML UNIT-DOSE CUPS PO PRN ×2 (07:58→15:37)
[2019-02-12] MEDS: oxyCODONE HCL 5 MG TABLET PO PRN ×2 (07:58→15:37)
[2019-02-12] MEDS: FLUTICASONE/SALMETEROL 100 MCG/50 MCG DISKUS IH SCH ×2 (09:59→21:47)
[2019-02-12] MEDS: METHADONE HCL 10 MG TABLET PO SCH ×2 (10:05→21:23)
[2019-02-12] MEDS: QUEtiapine FUMARATE 25 MG TABLET (FP) PO PRN ×2 (10:06→21:22)
[2019-02-12] MEDS: LIDOCAINE 5% TOPICAL PATCH TP SCH (10:06)
[2019-02-12] MEDS: PANTOPRAZOLE 40 MG TABLET (FP) PO SCH (10:06)
[2019-02-12] MEDS: ENOXAPARIN NA (PORCINE) 40 MG/0.4 ML DISP.SYRIN SQ SCH (10:06)
[2019-02-12] MEDS: FERROUS GLUCONATE 324 MG TAB (FP) PO SCH (10:06)
--- NOTE | 2019-02-12 10:40 | PN ---
Teaching Attending Note Name of Resident: Darleen Mcfarland ATTENDING PHYSICIAN STATEMENT I saw and evaluated the patient. I reviewed the resident's note and discussed the case with the resident. I agree with the resident's findings and plan as documented. SUBJECTIVE:states he still has pain but overall improved. 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 Hypotension- unclear cause.inaccurate reading initially? now normotensive. 2. Diffuse pain-overall improved. noted to be requesting less oxy for breakthrough pain. cont with lidoderm patch, dex and methadone. titrating down gabapentin. awaiting painter helper sign. 3. Suicidal idealizations- as per was at [facility] 2 days ago after 2 suicide attempts. unclear what was done. does not verbalize any thoughts at this time. psych consulted on 1:1 observation. will have re-assessment tomorrow to see if cleared 4. hyperglycemia- due to steroids. cont BGM and iss. may need to titrate dose if sugars become too uncontrolled. 5. hypokalemia-resolved 6. hypophosphatemia- resolved 7. r/o acute metabolic encephalopathy- appears alert and more responsive today. 8. RUL squamous carcinoma- not a candidate for immunotherapy at this time due to inability to tolerate it. not a candidate for treatment at this time. poor prognosis. hospice referral made. palliative care consult 9. SBO s/p resection 10. DVT ppx- lovenox 11. awaiting palliative care eval which should be here Wednesday. family agreeable to [place] placement. referral sent
--- NOTE | 2019-02-12 12:02 | PN ---
Physical Exam: SUBJECTIVE: Patient seen this morning, complains of pain. OBJECTIVE: Vital Signs Period Temp Pulse Resp BP Sys/Seo Pulse Ox Last 24 Hr 97.7 F-98.5 F 86-109 18-22 109-131/68-73 100-100 GENERAL: Awake, alert, in riya, restless trying to get out of bed EYES: , extraocular movements intact LUNGS: Breath sounds equal, clear to auscultation bilaterally. No wheezes, and no crackles. No accessory muscle use. HEART: Regular rate and rhythm, normal S1 and S2 without murmur, rub or gallop. ABDOMEN: Soft, nontender, not distended, normoactive bowel sounds, MUSCULOSKELETAL: Normal range of motion at all joints. . LOWER EXTREMITIES: 2+ pulses, warm, well-perfused. No calf tenderness. 1+ pitting edema SKIN: Warm, dry, normal turgor, no rashes or lesions noted, normal capillary refill. Laboratory Results - last 24 hr 02/11/19 02/11/19 02/11/19 06:30 11:35 18:40 WBC 6.8 RBC 3.30 L Hgb 9.6 L Hct 30.6 L MCV 92.7 MCH 29.1 MCHC 31.3 L RDW 18.0 H Plt Count 66 L MPV 7.7 Neutrophils % (Manual) 94.0 H Band Neutrophils % 2.0 Lymphocytes % (Manual) 2.0 L Monocytes % (Manual) 2 L D Eosinophils % (Manual) 0.0 Basophils % (Manual) 0.0 Myelocytes % (Man) 0 Promyelocytes % (Man) 0 Blast Cells % (Manual) 0 Metamyelocytes 0 Hypochromia 0 Platelet Estimate Decreased Polychromasia 0 Poikilocytosis 0 Anisocytosis 1+ Microcytosis 0 Macrocytosis 1+ Target Cells 0 Ovalocytes 1+ POC Glucometer 286 02/12/19 05:45 WBC RBC Hgb Hct MCV MCH MCHC RDW Plt Count MPV Neutrophils % (Manual) Band Neutrophils % Lymphocytes % (Manual) Monocytes % (Manual) Eosinophils % (Manual) Basophils % (Manual) Myelocytes % (Man) Promyelocytes % (Man) Blast Cells % (Manual) Metamyelocytes Hypochromia Platelet Estimate Polychromasia Poikilocytosis Anisocytosis Microcytosis Macrocytosis Target Cells Ovalocytes POC Glucometer 201 Active Medications Generic Name Dose Route Start Last Admin Trade Name Freq PRN Reason Stop Dose Admin Dexamethasone 4 mg 02/11/19 14:00 02/12/19 05:40 Decadron - PO 4 mg TID SHIRA Administration Docusate Sodium 100 mg 02/08/19 22:00 02/12/19 05:39 Colace - PO 100 mg TID SHIRA Administration Enoxaparin Sodium 40 mg 02/09/19 10:00 02/12/19 10:06 Lovenox - SQ 40 mg DAILY SHIRA Administration Ferrous Gluconate 324 mg 02/09/19 10:00 02/12/19 10:06 Fergon - PO 324 mg DAILY SHIRA Administration Gabapentin 100 mg 02/09/19 08:30 02/12/19 05:39 Neurontin - PO 100 mg TID SHIRA Administration Guaifenesin 10 ml 02/11/19 16:47 02/12/19 07:58 Robitussin - PO 10 ml Q8H PRN Administration COUGH Insulin Aspart 1 vial 02/11/19 16:30 02/12/19 06:37 Novolog Vial Sliding Scale - SQ 2 unit BIDAC SHIRA Administration Protocol Lidocaine 1 patch 02/11/19 10:00 02/12/19 10:06 Lidoderm Patch - TP 1 patch DAILY SHIRA Administration Lorazepam 0.5 mg 02/11/19 10:58 02/12/19 07:58 Ativan - PO 0.5 mg TID PRN Administration ANXIETY Methadone HCl 10 mg 02/08/19 22:00 02/12/19 10:05 Dolophine - PO 10 mg BID SHIRA Administration Miscellaneous 1 each 02/11/19 22:00 02/11/19 22:18 Lidoderm Patch Removal MC Not Given DAILY@2200 SHIRA Oxycodone HCl 5 mg 02/08/19 17:23 02/12/19 07:58 Roxicodone - PO 5 mg Q4H PRN Administration PAIN LEVEL 6-10 Pantoprazole Sodium 40 mg 02/09/19 10:00 02/12/19 10:06 Protonix - PO 40 mg DAILY SHIRA Administration Etain Balance 1 each 02/10/19 22:00 02/11/19 23:54 Capsules Pt Own Med PO 1 each (Pyxis) HS SHIRA Administration Quetiapine Fumarate 50 mg 02/08/19 22:00 02/11/19 22:26 Seroquel - PO 50 mg HS SHIRA Administration Quetiapine Fumarate 25 mg 02/09/19 16:17 02/12/19 10:06 Seroquel - PO 25 mg DAILY PRN Administration AGITATION Fluticasone/Salmeterol 1 puff 02/08/19 22:00 02/12/19 09:59 Advair 100mcg/50mcg - IH Not Given BID SHIRA ASSESSMENT/PLAN: Patient is a 68 y/o male with a history of RUL squamous cell carcinoma stage 4, anemia, BPH, COPD, and GERD who presents for AMS and hypotension. # Stage 4 squamous cell carcinoma, with chronic pain - per patient not receiving treatment as he could not tolerate side effects, not a candidate for immunotherapy - pain medication as per Dr Zhao per last visit, continue to follow - oxycodone 5 q4h prn, methadone 10 q12 - lidoderm patch - family meeting set for tomorrow for hospice #Hypotension; resolved - likely 2/2 to pain medication, cannot r/o sepsis - afebrile, w/o white count - f/u sepsis workup, lactic acid, blood culture, urine cx, sputum cx - hold antihypertensive medication #AMS - 2/2 to pain medication - MRI from December- no metastasis to brain - pt unable to sit still for head CT, CT unlikely to tire changer of patient #depression - 1:1 ordered - continue to monitor, may need psych clearance for hospice #GERD - continue pantoprazole #COPD - continue Advair #DVT ppx - Lovenox 40 sq daily FEN - regular diet Dispo: monitor on med surg Visit type - Emergency Visit Emergency Visit: No - New Patient This patient is new to me today: No - Critical Care Critical Care patient: No ATTENDING PHYSICIAN STATEMENT I saw and evaluated the patient. I reviewed the resident's note and discussed the case with the resident. I agree with the resident's findings and plan as documented. SUBJECTIVE: OBJECTIVE: ASSESSMENT AND PLAN:
--- NOTE | 2019-02-12 12:44 | CON.PULM ---
Consult Consult Specialty:: PULMONARY Referred by:: ARACELI Reason for Consultation:: ? PNEUMONIA - Past Medical History Cardio/Vascular: Yes: Other (PSVT) Pulmonary: Yes: Cancer (Squamous cell CA of the lung) - Alcohol/Substance Use Hx Alcohol Use: Yes - Smoking History Smoking history: Former smoker Have you smoked in the past 12 months: No Aproximately how many cigarettes per day: 30 If you are a former smoker, when did you quit?: May 2018 Home Medications - Allergies Allergies/Adverse Reactions: Allergies Allergy/AdvReac Type Severity Reaction Status Date / Time No Known Allergies Allergy Verified 01/23/19 19:29 - Home Medications Home Medications: Ambulatory Orders Docusate Sodium [Colace] 100 mg PO TID 01/05/19 Gabapentin 300 mg PO Q8H PRN 01/05/19 Oxycodone HCl 5 mg PO Q4H PRN 01/05/19 Pantoprazole Sodium [Protonix] 40 mg PO DAILY 01/05/19 Tamsulosin HCl 0.4 mg PO BID 01/05/19 Ferrous Gluconate [Fergon -] 324 mg PO DAILY #30 tab 01/08/19 Methadone [Dolophine -] 10 mg PO Q12H 01/08/19 Salmeterol/Fluticasone [Advair 100Mcg/50Mcg -] 2 puff IH Q12H PRN 01/25/19 Metoprolol Tartrate [Lopressor -] 50 mg PO BID 30 Days #60 tablet 02/03/19 Quetiapine Fumarate [Seroquel -] 50 mg PO BID 30 Days #60 tablet 02/03/19 Physical Exam Vital Sings: Vital Signs Temperature 98 F 02/12/19 05:59 Pulse Rate 105 H 02/12/19 05:59 Respiratory Rate 18 02/12/19 09:00 Blood Pressure 109/72 02/12/19 05:59 O2 Sat by Pulse Oximetry (%) 100 02/12/19 09:00 Labs: CBC, BMP 02/11/19 11:35 02/11/19 06:30 Assessment/Plan Advanced NSCLC (Squamous cell) s/p chemo Low clinical impression of PNA Chronic Pain/Methadone Maintenance/Suicide attempts Polysubstance abuse/methadone Anemia SVT s/p DCCV Family requesting [facility] placement given underlying neoplastic disease
--- NOTE | 2019-02-12 12:48 | CON.PULM ---
Consult - History of Present Illness History of Present Illness: 68 Y M, PMH of lung CA (on chemo, radiation under care Dr. Aviles), anemia, BPH, COPD, and GERD, presenting from [place] with confusion and edema. As per nursing note, patient was increasingly confused and lethargic today. Nursing note states he had a low O2 sat and developed bilateral low extremity edema. Patient has been noted to urinate on the floor often. HPI is limited secondary to patient being a poor historian. Family provided additional history, pt has been increasingly depressed and in pain due to his cancer. they were unable to obtain MRI on last visit due to his inability to cooperate with the exam. pt did try to commit suicide at the rehab facility. tried to tie the call stovall around his neck. they were sent to [facility] , to be evaluated by psychiatry and dc back to rehab last evening. this am pt was found to be hypotensive with peripheral edema. and more confused, lethargic. - History Source History Provided By: Medical Record Limitations to Obtaining History: Clinical Condition - Past Medical History AUTOMOBILE PARKER: No: Alzheimer's Cardio/Vascular: Yes: Other (PSVT) Pulmonary: Yes: Cancer (Squamous cell CA of the lung) - Alcohol/Substance Use Hx Alcohol Use: Yes - Smoking History Smoking history: Former smoker Have you smoked in the past 12 months: No Aproximately how many cigarettes per day: 30 If you are a former smoker, when did you quit?: May 2018 Home Medications - Allergies Allergies/Adverse Reactions: Allergies Allergy/AdvReac Type Severity Reaction Status Date / Time No Known Allergies Allergy Verified 01/23/19 19:29 - Home Medications Home Medications: Ambulatory Orders Docusate Sodium [Colace] 100 mg PO TID 01/05/19 Gabapentin 300 mg PO Q8H PRN 01/05/19 Oxycodone HCl 5 mg PO Q4H PRN 01/05/19 Pantoprazole Sodium [Protonix] 40 mg PO DAILY 01/05/19 Tamsulosin HCl 0.4 mg PO BID 01/05/19 Ferrous Gluconate [Fergon -] 324 mg PO DAILY #30 tab 01/08/19 Methadone [Dolophine -] 10 mg PO Q12H 01/08/19 Salmeterol/Fluticasone [Advair 100Mcg/50Mcg -] 2 puff IH Q12H PRN 01/25/19 Metoprolol Tartrate [Lopressor -] 50 mg PO BID 30 Days #60 tablet 02/03/19 Quetiapine Fumarate [Seroquel -] 50 mg PO BID 30 Days #60 tablet 02/03/19 Physical Exam Vital Sings: Vital Signs Temperature 98 F 02/12/19 05:59 Pulse Rate 105 H 02/12/19 05:59 Respiratory Rate 18 02/12/19 09:00 Blood Pressure 109/72 02/12/19 05:59 O2 Sat by Pulse Oximetry (%) 100 02/12/19 09:00 Constitutional: Yes: Calm Eyes: Yes: EOM Intact HENT: Yes: Normocephalic Neck: Yes: Trachea Midline Cardiovascular: Yes: S1, S2 Respiratory: Yes: Diminished Gastrointestinal: Yes: Soft Edema: No Labs: CBC, BMP 02/11/19 11:35 02/11/19 06:30 Imaging - Results Chest X-ray: Report Reviewed, Image Reviewed Cat Scan: Report Reviewed, Image Reviewed Problem List - Problems (1) Lung cancer Code(s): C34.90 - MALIGNANT NEOPLASM OF UNSP PART OF UNSP BRONCHUS OR LUNG (2) Pain management Code(s): R52 - PAIN, UNSPECIFIED (3) Agitated Code(s): R45.1 - RESTLESSNESS AND AGITATION (4) Anemia Code(s): D64.9 - ANEMIA, UNSPECIFIED Qualifiers: Anemia type: unspecified type Qualified Code(s): D64.9 - Anemia, unspecified (5) Dementia Code(s): F03.90 - UNSPECIFIED DEMENTIA WITHOUT BEHAVIORAL DISTURBANCE (6) PSVT (paroxysmal supraventricular tachycardia) Code(s): I47.1 - SUPRAVENTRICULAR TACHYCARDIA Assessment/Plan Advanced NSCLC (Squamous cell) s/p chemo Low clinical impression of PNA Chronic Pain/Methadone Maintenance/Suicide attempts Polysubstance abuse/methadone Anemia SVT s/p DCCV Family requesting [facility] placement given underlying neoplastic disease
[2019-02-12] MEDS ORDERED: HYDROmorphone *PCA* 10MG/50ML DISP.SYRIN PCA SCH (16:45)
--- NOTE | 2019-02-12 17:04 | PN ---
Progress Note (short form) - Note Progress Note: I have seen and examined Karl Gonzalez. 68 y/o gentleman with a history of RUL squamous cell carcinoma stage 4, anemia, BPH, COPD, and GERD who presented for AMS, hypotension and suicidal ideation. S: c/o severe pain, sitting and looking uncomfortable. "please take this pain away" "I don't know what I will do". Nurse reporting patient unable to sleep due to continuous uncontrolled pain O: Last Vital Signs Temp Pulse Resp BP Pulse Ox 98 F 105 H 18 109/72 100 02/12/19 05:59 02/12/19 05:59 02/12/19 09:00 02/12/19 05:59 02/12/19 09:00 General in severe distress due to pain HEENT MMM CVS S1, S2 Lung: + Ronchi. Good air entry Abdomen. Soft, NT, ND Neuro: Moves all extremities Current Medications Dexamethasone (Decadron -) 4 mg PO TID [facility] Last Admin: 02/12/19 15:36 Dose: 4 mg Docusate Sodium (Colace -) 100 mg PO TID [facility] Last Admin: 02/12/19 14:54 Dose: Not Given Enoxaparin Sodium (Lovenox -) 40 mg SQ DAILY [facility] Last Admin: 02/12/19 10:06 Dose: 40 mg Ferrous Gluconate (Fergon -) 324 mg PO DAILY [facility] Last Admin: 02/12/19 10:06 Dose: 324 mg Gabapentin (Neurontin -) 100 mg PO TID [facility] Last Admin: 02/12/19 15:36 Dose: 100 mg Guaifenesin (Robitussin -) 10 ml PO Q8H PRN PRN Reason: COUGH Last Admin: 02/12/19 15:37 Dose: 10 ml Hydromorphone HCl (Hydromorphone 10 Mg/50 Ml-Ns) 10 mg VP STRATEGIC PLANNING VP STRATEGIC PLANNING [facility]; Protocol Stop: 02/19/19 16:45 Insulin Aspart (Novolog Vial Sliding Scale -) 1 vial SQ BIDAC [facility]; Protocol Last Admin: 02/12/19 16:43 Dose: 6 unit Lidocaine (Lidoderm Patch -) 1 patch TP DAILY [facility] Last Admin: 02/12/19 10:06 Dose: 1 patch Lorazepam (Ativan -) 0.5 mg PO TID PRN PRN Reason: ANXIETY Last Admin: 02/12/19 07:58 Dose: 0.5 mg Methadone HCl (Dolophine -) 10 mg PO BID [facility] Last Admin: 02/12/19 10:05 Dose: 10 mg Miscellaneous (Lidoderm Patch Removal) 1 each MC DAILY@2200 [facility] Last Admin: 02/11/19 22:18 Dose: Not Given Oxycodone HCl (Roxicodone -) 5 mg PO Q4H PRN PRN Reason: PAIN LEVEL 6-10 Last Admin: 02/12/19 15:37 Dose: 5 mg Pantoprazole Sodium (Protonix -) 40 mg PO DAILY [facility] Last Admin: 02/12/19 10:06 Dose: 40 mg Etain Balance Capsules Pt Own Med (Pyxis) 1 each PO HS [facility] Last Admin: 02/11/19 23:54 Dose: 1 each Quetiapine Fumarate (Seroquel -) 50 mg PO [facility] Last Admin: 02/11/19 22:26 Dose: 50 mg Quetiapine Fumarate (Seroquel -) 25 mg PO DAILY PRN PRN Reason: AGITATION Last Admin: 02/12/19 10:06 Dose: 25 mg Fluticasone/Salmeterol (Advair 100mcg/50mcg -) 1 puff IH BID [facility] Last Admin: 02/12/19 09:59 Dose: Not Given 02/11/19 11:35 02/11/19 06:30 Assessment and Plan 68 y/o gentleman with locally advanced squamous cell carcinoma, w/ RUL mass s/ p carbo/taxol /RT and most recently 1 cycle pembrolizumab, now with chronic pain RUE Pain management challenging with delicate balance between pain relief and delirium--> Given severe uncontrolled pain, I will start Dilaudid VP STRATEGIC PLANNING. I discussed the case with her daughter who agreed. I discussed with Pharmacy and RN as well. Will continue methadone, oxycodone and medical marijuana (even with all of these agents pain is largely uncontrolled and his not sedated). Will continue to monitor carefully for sedation. Family meeting likely tomorrow to decide on further course of care. Dexamethasone for pain relief as well Discussed with daughter
[2019-02-12] MEDS ORDERED: QUEtiapine FUMARATE 25 MG TABLET (FP) ONE (21:04)
[2019-02-12] MEDS ORDERED: PT OWN MED (PYXIS) ONE (21:06)
[2019-02-12] MEDS: QUEtiapine FUMARATE 50 MG TABLET PO SCH (21:21)
[2019-02-12] MEDS: [UNRECOGNIZED DRUG - OTHER] PO SCH (21:25)
[2019-02-12] MEDS: LIDOCAINE PATCH REMOVAL MC SCH (21:48)
[2019-02-13] MEDS ORDERED: SODIUM CHLORIDE 500 ML IV SCH (01:30)
[2019-02-13] MEDS: guaiFENesin 200 MG/10 ML 10 ML UNIT-DOSE CUPS PO PRN (04:41)
[2019-02-13] MEDS: DOCUSATE SODIUM 100 MG CAPSULE (FP) PO SCH ×3 (06:21→21:48)
[2019-02-13] MEDS: DEXAMETHASONE 4 MG TABLET (FP) PO SCH ×3 (06:21→21:48)
[2019-02-13] MEDS: GABAPENTIN 100 MG CAPSULE (FP) PO SCH ×3 (06:22→21:48)
[2019-02-13] MEDS: INSULIN SLIDING SCALE (NOVOLOG) 1 VIAL SQ SCH ×2 (06:32→18:19)
[2019-02-13] MEDS: LORazepam 0.5 MG TABLET PO PRN ×2 (06:35→13:37)
[2019-02-13] MEDS ORDERED: PT OWN MED DRAWER 7, Y5N ONE (10:30)
[2019-02-13] MEDS: PANTOPRAZOLE 40 MG TABLET (FP) PO SCH (10:37)
[2019-02-13] MEDS: METHADONE HCL 10 MG TABLET PO SCH (10:37)
[2019-02-13] MEDS: FERROUS GLUCONATE 324 MG TAB (FP) PO SCH (10:37)
[2019-02-13] MEDS: LIDOCAINE 5% TOPICAL PATCH TP SCH (10:38)
[2019-02-13] MEDS: ENOXAPARIN NA (PORCINE) 40 MG/0.4 ML DISP.SYRIN SQ SCH (10:38)
[2019-02-13] MEDS: FLUTICASONE/SALMETEROL 100 MCG/50 MCG DISKUS IH SCH ×2 (10:45→21:47)
--- NOTE | 2019-02-13 11:33 | PN ---
Progress Note (short form) - Note Progress Note: Case discussed with staff and Patiernt seen for Follow up. On 1:1 for ? chord around the neck? Patient was evaluated and cleared at [facility] for t5his event. Staff reprts indicate that patient has not been engaged in any self damaging behaviour. Reports being in pain and becomes restless. DEnies any sucidal ideas or Plans. REC> 1) d/c 1:1. 2) continue with SEroquel 50 mg po hs.
--- NOTE | 2019-02-13 12:01 | PN ---
Teaching Attending Note Name of Resident: Sherry Kapadia ATTENDING PHYSICIAN STATEMENT I saw and evaluated the patient. I reviewed the resident's note and discussed the case with the resident. I agree with the resident's findings and plan as documented. SUBJECTIVE:does not answer questions today. alert OBJECTIVE: Last Vital Signs Temp Pulse Resp BP Pulse Ox 97.6 F 108 H 20 119/71 95 02/13/19 06:00 02/13/19 06:00 02/13/19 06:00 02/13/19 06:00 02/13/19 03:49 General sitting comfortable, does not answer questions today but is alert CV S1 S2 RRR no murmur/rub/gallop Extremities 2+ pitting edema B/L LE, 1 + pitting to L hand, some ecchymosis in various stages of healing on B/L UE ASSESSMENT AND PLAN: 68yo M with PMH RUL squamous carcinoma on chemo and immunotherapy, SBO s/o bowel resection, polysubstance use, chronic pain syndrome on methadone was sent from [facility] for hypotension 1. Hypotension- unclear cause.inaccurate reading initially? now normotensive. 2. Diffuse pain-is less responsive today but overall alert. was started on dilaudid SENIOR ANALYTICAL CHEMIST pump. will adjust as needed so he is more alert but controlling pain. will reduce basal rate. will d/c methadone and oxy prn pain as now on infusion. will see how mental status improve with these changes. may need to go back up on basal dose with stopping these meds. cont lidoderm patch and dex for bone pain. on tapering dose of gabapentin can likely be stopped in 1-2 days. awaiting industrial spray painter. 3. Suicidal idealizations- as per was at [facility] 2 days ago after 2 suicide attempts. unclear what was done. has not made any attempts or threats to hurt himself or others. will request [facility] to re-evaluate and see if requires ongoing 1:1 obervation. 4. hyperglycemia- due to steroids. cont BGM and iss. may need to titrate dose if sugars become too uncontrolled. 5. hypokalemia-resolved 6. hypophosphatemia- resolved 7. r/o acute metabolic encephalopathy- alert however less communicative. will need to adjust dilaudid 8. RUL squamous carcinoma- not a candidate for immunotherapy at this time due to inability to tolerate it. not a candidate for treatment at this time. poor prognosis. hospice referral made. palliative care consult 9. SBO s/p resection 10. DVT ppx- lovenox 11. Family meeting again today to discuss overall poor prognosis and limited options. Family seemed agreeable to [facility] for inpatient hospice last week. referrals sent. palliative team to assess today
--- NOTE | 2019-02-13 12:04 | PN ---
Progress Note (short form) - Note Progress Note: PULMONARY Confused. No fevers recorded. Vital Signs Period Temp Pulse Resp BP Sys/Seo Pulse Ox Last 24 Hr 97.6 F-97.9 F 66-109 17-20 105-129/65-80 94-95 Gen: NAD at rest Heart: RRR Lung: decreased breath sounds at the bases Abd: soft, nontender Ext: + edema CBC, BMP 02/11/19 11:35 02/11/19 06:30 Active Medications Dexamethasone (Decadron -) 4 mg PO TID [facility] Last Admin: 02/13/19 06:21 Dose: 4 mg Docusate Sodium (Colace -) 100 mg PO TID [facility] Last Admin: 02/13/19 06:21 Dose: 100 mg Enoxaparin Sodium (Lovenox -) 40 mg SQ DAILY [facility] Last Admin: 02/13/19 10:38 Dose: 40 mg Ferrous Gluconate (Fergon -) 324 mg PO DAILY [facility] Last Admin: 02/13/19 10:37 Dose: 324 mg Gabapentin (Neurontin -) 100 mg PO TID [facility] Last Admin: 02/13/19 06:22 Dose: 100 mg Guaifenesin (Robitussin -) 10 ml PO Q8H PRN PRN Reason: COUGH Last Admin: 02/13/19 04:41 Dose: 10 ml Hydromorphone HCl (Hydromorphone 10 Mg/50 Ml-Ns) 10 mg GUEST RELATIONS ASSOCIATE GUEST RELATIONS ASSOCIATE [facility]; Protocol Stop: 02/19/19 16:45 Insulin Aspart (Novolog Vial Sliding Scale -) 1 vial SQ BIDAC [facility]; Protocol Last Admin: 02/13/19 06:32 Dose: 6 unit Lidocaine (Lidoderm Patch -) 1 patch TP DAILY [facility] Last Admin: 02/13/19 10:38 Dose: 1 patch Lorazepam (Ativan -) 0.5 mg PO TID PRN PRN Reason: ANXIETY Last Admin: 02/13/19 06:35 Dose: 0.5 mg Miscellaneous (Lidoderm Patch Removal) 1 each MC DAILY@2200 [facility] Last Admin: 02/12/19 21:48 Dose: 1 each Pantoprazole Sodium (Protonix -) 40 mg PO DAILY [facility] Last Admin: 02/13/19 10:37 Dose: 40 mg Etain Balance Capsules Pt Own Med (Pyxis) 1 each PO HS [facility] Last Admin: 10/06/19 21:25 Dose: 1 each Quetiapine Fumarate (Seroquel -) 50 mg PO HS [facility] Last Admin: 02/12/19 21:21 Dose: 50 mg Quetiapine Fumarate (Seroquel -) 25 mg PO DAILY PRN PRN Reason: AGITATION Last Admin: 02/12/19 21:22 Dose: 25 mg Fluticasone/Salmeterol (Advair 100mcg/50mcg -) 1 puff IH BID [facility] Last Admin: 02/13/19 10:45 Dose: 1 puff Senna (Senna -) 1 tab PO BID [facility] A/P NSCLC - Squamous Polysubstance Abuse Methadone Maintenance h/o SBO Anemia Thrombocytopenia - inhaled bronchodilators - O2 to keep Spo2 >90% - pain control - agree with palliative placement
[2019-02-13] MEDS: HYDROmorphone *PCA* 10MG/50ML DISP.SYRIN PCA SCH (13:00)
[2019-02-13] MEDS: SENNOSIDES 8.6MG TABLET (FP) PO SCH ×2 (13:47→21:52)
--- NOTE | 2019-02-13 15:05 | PN ---
Physical Exam: SUBJECTIVE: Patient seen and examined. He is unable to verbalize his pain today. OBJECTIVE: Vital Signs Period Temp Pulse Resp BP Sys/Seo Pulse Ox Last 24 Hr 97.6 F-99.8 F 66-116 17-20 105-129/65-81 94-97 GENERAL: The patient is awake and alert in mild distress HEAD: Normal with no signs of trauma. EYES: PERRL, extraocular movements intact, sclera anicteric, conjunctiva clear. No ptosis. ENT: Ears normal, nares patent, moist mucous membranes. NECK: Trachea midline, full range of motion, supple. LUNGS: wheezes bilaterally, no crackles, no accessory muscle use. HEART: Regular rate and rhythm, S1, S2 without murmur, rub or gallop. ABDOMEN: Soft, nondistended EXTREMITIES: 2+ pulses, warm, well-perfused, hands slightly edematous. NEUROLOGICAL: Cranial nerves II through XII grossly intact. Normal speech, gait not observed. PSYCH: sad SKIN: Warm, dry, normal turgor, no rashes or lesions noted Laboratory Results - last 24 hr 02/12/19 02/13/19 16:42 06:26 POC Glucometer 311 307 Active Medications Generic Name Dose Route Start Last Admin Trade Name Freq PRN Reason Stop Dose Admin Dexamethasone 4 mg 02/11/19 14:00 02/13/19 13:47 Decadron - PO 4 mg TID [facility] Administration Docusate Sodium 100 mg 02/08/19 22:00 02/13/19 13:47 Colace - PO 100 mg TID [facility] Administration Enoxaparin Sodium 40 mg 02/09/19 10:00 02/13/19 10:38 Lovenox - SQ 40 mg DAILY [facility] Administration Ferrous Gluconate 324 mg 02/09/19 10:00 02/13/19 10:37 Fergon - PO 324 mg DAILY [facility] Administration Gabapentin 100 mg 02/09/19 08:30 02/13/19 13:47 Neurontin - PO 100 mg TID [facility] Administration Guaifenesin 10 ml 02/11/19 16:47 02/13/19 04:41 Robitussin - PO 10 ml Q8H PRN Administration COUGH Hydromorphone HCl 10 mg 02/13/19 11:59 Hydromorphone 10 Mg/50 Ml-Ns TELESALES ADVISOR 02/19/19 16:45 TELESALES ADVISOR [facility] Protocol Insulin Aspart 1 vial 02/11/19 16:30 02/13/19 06:32 Novolog Vial Sliding Scale - SQ 6 unit BIDAC [facility] Administration Protocol Lidocaine 1 patch 02/11/19 10:00 02/13/19 10:38 Lidoderm Patch - TP 1 patch DAILY [facility] Administration Lorazepam 0.5 mg 02/11/19 10:58 02/13/19 13:37 Ativan - PO 0.5 mg TID PRN Administration ANXIETY Miscellaneous 1 each 02/11/19 22:00 02/12/19 21:48 Lidoderm Patch Removal MC 1 each DAILY@2200 [facility] Administration Pantoprazole Sodium 40 mg 02/09/19 10:00 02/13/19 10:37 Protonix - PO 40 mg DAILY [facility] Administration Etain Balance 1 each 02/10/19 22:00 02/12/19 21:25 Capsules Pt Own Med PO 1 each (Pyxis) HS [facility] Administration Quetiapine Fumarate 50 mg 02/08/19 22:00 02/12/19 21:21 Seroquel - PO 50 mg HS [facility] Administration Quetiapine Fumarate 25 mg 02/09/19 16:17 02/12/19 21:22 Seroquel - PO 25 mg DAILY PRN Administration AGITATION Fluticasone/Salmeterol 1 puff 02/08/19 22:00 02/13/19 10:45 Advair 100mcg/50mcg - IH 1 puff BID [facility] Administration Senna 1 tab 02/13/19 11:30 02/13/19 13:47 Senna - PO 1 tab BID [facility] Administration ASSESSMENT/PLAN: Mr. Gonzalez is a 68 y/o male with a history of RUL squamous cell carcinoma stage 4 , anemia, BPH, COPD, and GERD who presents for AMS and hypotension. #chronic pain 2/2 stage 4 squamous cell carcinoma Same presentation as last admission. MRI from December- no metastasis to brain. Pt refusing CT. -decadron 4mg Q8H IV -Seroquel 50mg QHS -Seroquel 25mg PRN once a day for agitation -ativan TID PRN -TELESALES ADVISOR pump lowered -lidoderm patch -d/c oxycodone and methadone -family meeting with palliative care today #hyperglycemia likely 2/2 steroid use 200s-300s -BGM -SSI #hypokalemia, resolved 4.1 -repleted -monitor #hypotension, resolved Likely 2/2 to pain medication. Afebrile. No leukocytosis. Sepsis workup negative. - hold antihypertensive medication #loss of appetite -marinol #depression Reported to have suicidal thoughts at admission. Not present now. -1:1 discontinued -direct supervision -Faby skelton as needed -psych following #GERD -continue pantoprazole #COPD -continue Advair #constipation -colace and senna DVT ppx Lovenox 40 sq daily FEN regular diet monitor K NS 100 Dispo: monitor on med surg FULL CODE No legal healthcare proxy. Visit type - Emergency Visit Emergency Visit: Yes ED Registration Date: 02/08/19 Care time: The patient presented to the Emergency Department on the above date and was hospitalized for further evaluation of their emergent condition. - New Patient This patient is new to me today: No - Critical Care Critical Care patient: No - Discharge Referral Referred to [facility] Med [facility] No ATTENDING PHYSICIAN STATEMENT I saw and evaluated the patient. I reviewed the resident's note and discussed the case with the resident. I agree with the resident's findings and plan as documented. SUBJECTIVE: OBJECTIVE: ASSESSMENT AND PLAN:
[2019-02-13] MEDS: QUEtiapine FUMARATE 25 MG TABLET (FP) PO PRN (18:32)
--- NOTE | 2019-02-13 18:32 | PN ---
Progress Note (short form) - Note Progress Note: Patient sen and examined Remains confused. Just pulled out IC DESIGNER STANDARD CELLS line. Sister and brother -in law at beside. Current status does not allow patient to be a candidate for any meaningful intervention. Pain management continues to be the major issue . Last Vital Signs Temp Pulse Resp BP Pulse Ox 97.7 F 111 H 20 131/74 95 02/13/19 17:56 02/13/19 17:56 02/13/19 17:56 02/13/19 17:56 02/13/19 13:00 HEENT: CARLITOS, EOM Intact Cor: RSR, No murmurs, No gallops Lungs: rhonchi, bronchial breath sounds Abd: Soft, Normal bowel sounds, No organomegaly Ext:No significant edema Skin: No rashes, Integument intact CBC, BMP 02/11/19 11:35 02/11/19 06:30 Current Medications Generic Name Dose Route Start Last Admin Trade Name Freq PRN Reason Stop Dose Admin Dexamethasone 4 mg 02/11/19 14:00 02/13/19 13:47 Decadron - PO 4 mg TID [facility] Administration Docusate Sodium 100 mg 02/08/19 22:00 02/13/19 13:47 Colace - PO 100 mg TID [facility] Administration Enoxaparin Sodium 40 mg 02/09/19 10:00 02/13/19 10:38 Lovenox - SQ 40 mg DAILY [facility] Administration Ferrous Gluconate 324 mg 02/09/19 10:00 02/13/19 10:37 Fergon - PO 324 mg DAILY [facility] Administration Gabapentin 100 mg 02/09/19 08:30 02/13/19 13:47 Neurontin - PO 100 mg TID [facility] Administration Guaifenesin 10 ml 02/11/19 16:47 02/13/19 04:41 Robitussin - PO 10 ml Q8H PRN Administration COUGH Hydromorphone HCl 10 mg 02/13/19 11:59 02/13/19 13:00 Hydromorphone 10 Mg/50 Ml-Ns IC DESIGNER STANDARD CELLS 02/19/19 16:45 10 mg IC DESIGNER STANDARD CELLS [facility] Administration Protocol Insulin Aspart 1 vial 02/11/19 16:30 02/13/19 06:32 Novolog Vial Sliding Scale - SQ 6 unit BIDAC [facility] Administration Protocol Lidocaine 1 patch 02/11/19 10:00 02/13/19 10:38 Lidoderm Patch - TP 1 patch DAILY [facility] Administration Lorazepam 0.5 mg 02/11/19 10:58 02/13/19 13:37 Ativan - PO 0.5 mg TID PRN Administration ANXIETY Miscellaneous 1 each 02/11/19 22:00 02/12/19 21:48 Lidoderm Patch Removal MC 1 each DAILY@2200 [facility] Administration Pantoprazole Sodium 40 mg 02/09/19 10:00 02/13/19 10:37 Protonix - PO 40 mg DAILY [facility] Administration Etain Balance 1 each 02/10/19 22:00 02/12/19 21:25 Capsules Pt Own Med PO 1 each (Pyxis) HS [facility] Administration Quetiapine Fumarate 50 mg 02/08/19 22:00 02/12/19 21:21 Seroquel - PO 50 mg HS [facility] Administration Quetiapine Fumarate 25 mg 02/09/19 16:17 02/12/19 21:22 Seroquel - PO 25 mg DAILY PRN Administration AGITATION Fluticasone/Salmeterol 1 puff 02/08/19 22:00 02/13/19 10:45 Advair 100mcg/50mcg - IH 1 puff BID [facility] Administration Senna 1 tab 02/13/19 11:30 02/13/19 13:47 Senna - PO 1 tab BID [facility] Administration Impression: It would seem that pain management is major issue. Confusion may be secondary to meds, prior BRAND ACTIVATION MANAGER imaging non revealing, but needs MRI repeat when less confused. Pain managemen Dilaudid IC DESIGNER STANDARD CELLS- too confused to press breakthrough current meds methadone and oxycodone have been d/ludy Seroqul 50 h.s. --received 2 breakthrough doses of 0.25 on 02/12; 1 dose at 6: 30 PM Ativan 0.5 tid oxycodone 5mg - 2 doses- 02/12 methadone last given-1mg - 02/13 at 11 AM Neurontin 100 tid Agitated and confused SCC of lung - s/p RT/chemotherapy Anemia Thrombocytopenia
[2019-02-13] MEDS ORDERED: INSULIN (NOVOLOG) ASPART 100 UNITS/ML 10ML VIAL ONE (19:27)
[2019-02-13] MEDS ORDERED: QUEtiapine FUMARATE 25 MG TABLET (FP) ONE (20:48)
[2019-02-13] MEDS ORDERED: PT OWN MED (PYXIS) ONE (21:39)
[2019-02-13] MEDS: [UNRECOGNIZED DRUG - OTHER] PO SCH (21:49)
[2019-02-13] MEDS: QUEtiapine FUMARATE 50 MG TABLET PO SCH (21:50)
[2019-02-13] MEDS: LIDOCAINE PATCH REMOVAL MC SCH (21:52)
[2019-02-14] MEDS: DOCUSATE SODIUM 100 MG CAPSULE (FP) PO SCH ×3 (05:53→21:39)
[2019-02-14] MEDS: DEXAMETHASONE 4 MG TABLET (FP) PO SCH ×3 (05:53→21:39)
[2019-02-14] MEDS: GABAPENTIN 100 MG CAPSULE (FP) PO SCH (05:53)
[2019-02-14] MEDS: INSULIN SLIDING SCALE (NOVOLOG) 1 VIAL SQ SCH ×3 (06:03→21:38)
[2019-02-14] MEDS: HYDROmorphone *PCA* 10MG/50ML DISP.SYRIN PCA SCH (09:10)
[2019-02-14] MEDS: FERROUS GLUCONATE 324 MG TAB (FP) PO SCH (09:17)
[2019-02-14] MEDS: PANTOPRAZOLE 40 MG TABLET (FP) PO SCH (09:17)
[2019-02-14] MEDS: SENNOSIDES 8.6MG TABLET (FP) PO SCH ×2 (09:17→21:39)
[2019-02-14] MEDS: LIDOCAINE 5% TOPICAL PATCH TP SCH (09:17)
[2019-02-14] MEDS: ENOXAPARIN NA (PORCINE) 40 MG/0.4 ML DISP.SYRIN SQ SCH (09:17)
[2019-02-14] MEDS: FLUTICASONE/SALMETEROL 100 MCG/50 MCG DISKUS IH SCH ×2 (09:18→21:39)
--- NOTE | 2019-02-14 11:16 | PN ---
Progress Note (short form) - Note Progress Note: PULMONARY Remains confused. No fevers recorded. Vital Signs Period Temp Pulse Resp BP Sys/Seo Pulse Ox Last 24 Hr 97.2 F-97.7 F 98-127 18-20 118-140/70-82 93-95 Gen: restless Heart: RRR Lung: decreased breath sounds at the bases Abd: soft, nontender Ext: + edema CBC, BMP 02/11/19 11:35 02/11/19 06:30 Active Medications Dexamethasone (Decadron -) 4 mg PO TID [facility] Last Admin: 02/14/19 05:53 Dose: 4 mg Docusate Sodium (Colace -) 100 mg PO TID [facility] Last Admin: 02/14/19 05:53 Dose: 100 mg Enoxaparin Sodium (Lovenox -) 40 mg SQ DAILY [facility] Last Admin: 02/14/19 09:17 Dose: 40 mg Ferrous Gluconate (Fergon -) 324 mg PO DAILY [facility] Last Admin: 02/14/19 09:17 Dose: 324 mg Gabapentin (Neurontin -) 100 mg PO TID [facility] Last Admin: 02/14/19 05:53 Dose: 100 mg Guaifenesin (Robitussin -) 10 ml PO Q8H PRN PRN Reason: COUGH Last Admin: 02/13/19 04:41 Dose: 10 ml Hydromorphone HCl (Hydromorphone 10 Mg/50 Ml-Ns) 10 mg FLOOR WAXER FLOOR WAXER [facility]; Protocol Stop: 02/19/19 16:45 Last Admin: 02/14/19 09:10 Dose: 10 mg Insulin Aspart (Novolog Vial Sliding Scale -) 1 vial SQ BIDAC [facility]; Protocol Last Admin: 02/14/19 06:03 Dose: 4 unit Lidocaine (Lidoderm Patch -) 1 patch TP DAILY [facility] Last Admin: 02/14/19 09:17 Dose: 1 patch Lorazepam (Ativan -) 0.5 mg PO TID PRN PRN Reason: ANXIETY Last Admin: 02/13/19 13:37 Dose: 0.5 mg Miscellaneous (Lidoderm Patch Removal) 1 each MC DAILY@2200 [facility] Last Admin: 02/13/19 21:52 Dose: 1 each Pantoprazole Sodium (Protonix -) 40 mg PO DAILY [facility] Last Admin: 02/14/19 09:17 Dose: Not Given Etain Balance Capsules Pt Own Med (Pyxis) 1 each PO HS [facility] Last Admin: 02/13/19 21:49 Dose: 1 each Quetiapine Fumarate (Seroquel -) 50 mg PO HS [facility] Last Admin: 02/13/19 21:50 Dose: 50 mg Quetiapine Fumarate (Seroquel -) 25 mg PO DAILY PRN PRN Reason: AGITATION Last Admin: 02/13/19 18:32 Dose: 25 mg Fluticasone/Salmeterol (Advair 100mcg/50mcg -) 1 puff IH BID [facility] Last Admin: 02/14/19 09:18 Dose: Not Given Senna (Senna -) 1 tab PO BID [facility] Last Admin: 02/14/19 09:17 Dose: Not Given A/P NSCLC - Squamous Polysubstance Abuse Methadone Maintenance h/o SBO Anemia Thrombocytopenia - inhaled bronchodilators - O2 to keep Spo2 >90% - pain control - agree with palliative placement
--- NOTE | 2019-02-14 11:28 | PN ---
Physical Exam: SUBJECTIVE: Patient seen and examined. He denies pain currently. Unable to further verbalize symptoms. Pt pulled out IV overnight. OBJECTIVE: Vital Signs Period Temp Pulse Resp BP Sys/Seo Pulse Ox Last 24 Hr 97.2 F-97.7 F 98-127 18-20 118-140/70-82 93-95 GENERAL: The patient is awake and alert in mild distress. Minimal eye contact. HEAD: Normal with no signs of trauma. EYES: PERRL, extraocular movements intact, sclera anicteric, conjunctiva clear. No ptosis. ENT: Ears normal, nares patent, moist mucous membranes. NECK: Trachea midline, full range of motion, supple. LUNGS: Coarse breath sounds bilaterally, no crackles, no accessory muscle use. HEART: Tachycardic and regular rhythm, S1, S2 without murmur, rub or gallop. ABDOMEN: Soft, nondistended EXTREMITIES: 2+ pulses, warm, well-perfused, hands slightly edematous. Mitten restraints. NEUROLOGICAL: Cranial nerves II through XII grossly intact. Normal speech, gait not observed. PSYCH: Flat affect. SKIN: Warm, dry, normal turgor, no rashes or lesions noted Laboratory Results - last 24 hr 02/13/19 02/14/19 16:48 05:57 POC Glucometer 326 277 Active Medications Generic Name Dose Route Start Last Admin Trade Name Freq PRN Reason Stop Dose Admin Dexamethasone 4 mg 02/11/19 14:00 02/14/19 05:53 Decadron - PO 4 mg TID SHIRA Administration Docusate Sodium 100 mg 02/08/19 22:00 02/14/19 05:53 Colace - PO 100 mg TID SHIRA Administration Enoxaparin Sodium 40 mg 02/09/19 10:00 02/14/19 09:17 Lovenox - SQ 40 mg DAILY SHIRA Administration Ferrous Gluconate 324 mg 02/09/19 10:00 02/14/19 09:17 Fergon - PO 324 mg DAILY SHIRA Administration Gabapentin 100 mg 02/09/19 08:30 02/14/19 05:53 Neurontin - PO 100 mg TID SHIRA Administration Guaifenesin 10 ml 02/11/19 16:47 02/13/19 04:41 Robitussin - PO 10 ml Q8H PRN Administration COUGH Hydromorphone HCl 10 mg 02/13/19 11:59 02/14/19 09:10 Hydromorphone 10 Mg/50 Ml-Ns PROCUREMENT FORESTER 02/19/19 16:45 10 mg PROCUREMENT FORESTER SHIRA Administration Protocol Insulin Aspart 1 vial 02/11/19 16:30 02/14/19 06:03 Novolog Vial Sliding Scale - SQ 4 unit BIDAC SHIRA Administration Protocol Lidocaine 1 patch 02/11/19 10:00 02/14/19 09:17 Lidoderm Patch - TP 1 patch DAILY SHIRA Administration Lorazepam 0.5 mg 02/11/19 10:58 02/13/19 13:37 Ativan - PO 0.5 mg TID PRN Administration ANXIETY Miscellaneous 1 each 02/11/19 22:00 02/13/19 21:52 Lidoderm Patch Removal MC 1 each DAILY@2200 SHIRA Administration Pantoprazole Sodium 40 mg 02/09/19 10:00 02/14/19 09:17 Protonix - PO Not Given DAILY SHIRA Etain Balance 1 each 02/10/19 22:00 02/13/19 21:49 Capsules Pt Own Med PO 1 each (Pyxis) HS SHIRA Administration Quetiapine Fumarate 50 mg 02/08/19 22:00 02/13/19 21:50 Seroquel - PO 50 mg HS SHIRA Administration Quetiapine Fumarate 25 mg 02/09/19 16:17 02/13/19 18:32 Seroquel - PO 25 mg DAILY PRN Administration AGITATION Fluticasone/Salmeterol 1 puff 02/08/19 22:00 02/14/19 09:18 Advair 100mcg/50mcg - IH Not Given BID SHIRA Senna 1 tab 02/13/19 11:30 02/14/19 09:17 Senna - PO Not Given BID SHIRA ASSESSMENT/PLAN: Mr. Gonzalez is a 68 y/o male with a history of RUL squamous cell carcinoma stage 4 , anemia, BPH, COPD, and GERD who presents for AMS and hypotension. #chronic pain 2/2 stage 4 squamous cell carcinoma Same presentation as last admission. MRI from December- no metastasis to brain. Pt refusing CT. -decadron 4mg Q8H IV -Seroquel 50mg QHS -Seroquel 25mg PRN once a day for agitation -ativan TID PRN -PROCUREMENT FORESTER pump lowered -lidoderm patch -pt's home medical marijuana -d/c oxycodone and methadone -palliative care- Family meeting today and members are in agreement to submit ian for [facility] for further pain management. #hyperglycemia likely 2/2 steroid use 200s-300s -BGM -SSI #hypokalemia, resolved -repleted -monitor #hypotension, resolved Likely 2/2 to pain medication. Afebrile. No leukocytosis. Sepsis workup negative. - hold antihypertensive medication #agitation Reported to have suicidal thoughts at admission. Not present now. He is restless and has pulled out IVs multiple times. -1:1 discontinued -direct supervision -hand mittens as needed -psych following #GERD -continue pantoprazole #COPD -continue Advair #constipation -colace and senna DVT ppx Lovenox 40 sq daily FEN regular diet monitor K NS 100 Dispo: monitor on med surg FULL CODE No legal healthcare proxy. Visit type - Emergency Visit Emergency Visit: Yes ED Registration Date: 02/08/19 Care time: The patient presented to the Emergency Department on the above date and was hospitalized for further evaluation of their emergent condition. - New Patient This patient is new to me today: No - Critical Care Critical Care patient: No - Discharge Referral Referred to [facility] Med P.C.: No ATTENDING PHYSICIAN STATEMENT I saw and evaluated the patient. I reviewed the resident's note and discussed the case with the resident. I agree with the resident's findings and plan as documented. SUBJECTIVE: OBJECTIVE: ASSESSMENT AND PLAN:
[2019-02-14] MEDS: LORazepam 0.5 MG TABLET PO PRN (11:39)
--- NOTE | 2019-02-14 15:54 | PN ---
Teaching Attending Note Name of Resident: Toney Oconnor ATTENDING PHYSICIAN STATEMENT I saw and evaluated the patient. I reviewed the resident's note and discussed the case with the resident. I agree with the resident's findings and plan as documented. SUBJECTIVE: Patient is confused. OBJECTIVE: Vital Signs Period Temp Pulse Resp BP Sys/Seo Pulse Ox Last 24 Hr 97.2 F-99.1 F 98-127 18-20 126-140/52-82 93-95 HEART: S1S2, tachycardic LUNGS: Clear ABDOMEN: Soft, non-tender, non-distended, normal BS EXTREMITIES: 1+ edema Laboratory Results - last 24 hr 02/13/19 02/14/19 16:48 05:57 POC Glucometer 326 277 Current Medications Generic Name Dose Route Start Last Admin Trade Name Freq PRN Reason Stop Dose Admin Dexamethasone 4 mg 02/11/19 14:00 02/14/19 13:58 Decadron - PO 4 mg TID SHIRA Administration Docusate Sodium 100 mg 02/08/19 22:00 02/14/19 13:47 Colace - PO Not Given TID SHIRA Enoxaparin Sodium 40 mg 02/09/19 10:00 02/14/19 09:17 Lovenox - SQ 40 mg DAILY SHIRA Administration Ferrous Gluconate 324 mg 02/09/19 10:00 02/14/19 09:17 Fergon - PO 324 mg DAILY SHIRA Administration Guaifenesin 10 ml 02/11/19 16:47 02/13/19 04:41 Robitussin - PO 10 ml Q8H PRN Administration COUGH Hydromorphone HCl 10 mg 02/13/19 11:59 02/14/19 09:10 Hydromorphone 10 Mg/50 Ml-Ns OCEANIC SCIENCES PROFESSOR 02/19/19 16:45 10 mg OCEANIC SCIENCES PROFESSOR SHIRA Administration Protocol Insulin Aspart 1 vial 02/11/19 16:30 02/14/19 06:03 Novolog Vial Sliding Scale - SQ 4 unit BIDAC SHIRA Administration Protocol Lidocaine 1 patch 02/11/19 10:00 02/14/19 09:17 Lidoderm Patch - TP 1 patch DAILY SHIRA Administration Lorazepam 0.5 mg 02/11/19 10:58 02/14/19 11:39 Ativan - PO 0.5 mg TID PRN Administration ANXIETY Miscellaneous 1 each 02/11/19 22:00 02/13/19 21:52 Lidoderm Patch Removal MC 1 each DAILY@2200 SHIRA Administration Pantoprazole Sodium 40 mg 02/09/19 10:00 02/14/19 09:17 Protonix - PO Not Given DAILY SHIRA Etain Balance 1 each 02/10/19 22:00 02/13/19 21:49 Capsules Pt Own Med PO 1 each (Pyxis) HS SHIRA Administration Quetiapine Fumarate 50 mg 02/08/19 22:00 02/13/19 21:50 Seroquel - PO 50 mg HS SHIRA Administration Quetiapine Fumarate 25 mg 02/09/19 16:17 02/13/19 18:32 Seroquel - PO 25 mg DAILY PRN Administration AGITATION Fluticasone/Salmeterol 1 puff 02/08/19 22:00 02/14/19 09:18 Advair 100mcg/50mcg - IH Not Given BID SHIRA Senna 1 tab 02/13/19 11:30 02/14/19 09:17 Senna - PO Not Given BID SHIRA ASSESSMENT AND PLAN: This is a 68 year old man with a history of squamous cell lung cancer, bowel resection secondary to obstruction, tobacco use, alcohol use, chronic pain syndrome, opioid dependence who was sent to the ED from [place] for evaluation of hypotension. 1. Acute metabolic encephalopathy 2. Hypotension - Resolved 3. Depression and anxiety with suicidal ideation - Cleared by psychiatry - Continue Seroquel, Ativan as needed 4. History of PSVT 5. COPD - Stable - Continue Advair 6. Anemia secondary to chronic illness - Continue ferrous gluconate 7. Thrombocytopenia 8. Squamous cell lung cancer - Continue palliative care - Awaiting evaluation for [facility] 9. Chronic pain syndrome - Has Dilaudid OCEANIC SCIENCES PROFESSOR but he doesn't appear to be able to control demand dosing and pain remains uncontrolled - Continue Lidoderm patch - Will restart Methadone, Neurontin 10. Hyperglycemia, steroid-induced 11. Hypokalemia - Resolved 12. Hypophosphatemia 13. Opioid dependence 14. DVT prophylaxis - On Lovenox
[2019-02-14] MEDS: QUEtiapine FUMARATE 25 MG TABLET (FP) PO PRN (16:44)
[2019-02-14] MEDS ORDERED: INSULIN (NOVOLOG) ASPART 100 UNITS/ML 10ML VIAL ONE (18:29)
[2019-02-14] MEDS ORDERED: METHADONE HCL 10 MG TABLET PO ONE (19:07)
[2019-02-14] MEDS ORDERED: GABAPENTIN 100 MG CAPSULE (FP) PO ONE (19:08)
[2019-02-14] MEDS ORDERED: LORazepam 2 MG/ML SDV VIAL IVPUSH ONE (19:21)
[2019-02-14] MEDS ORDERED: PT OWN MED (PYXIS) ONE (20:42)
--- NOTE | 2019-02-14 20:48 | PN ---
Progress Note (short form) - Note Progress Note: I have seen and examined Karl Gonzalez. 68 y/o gentleman with a history of RUL squamous cell carcinoma stage 4, anemia, BPH, COPD, and GERD who presented for AMS, hypotension and suicidal ideation. S: Moaning in bed, confused. Unclear if this is due to pain, initially denied pain but later reported he is in pain O: Last Vital Signs Temp Pulse Resp BP Pulse Ox 98.4 F 115 H 18 141/67 93 L 02/14/19 17:58 02/14/19 17:58 02/14/19 17:58 02/14/19 17:58 02/14/19 09:10 General: in severe distress due to pain vs confusion HEENT MMM CVS S1, S2 Lung: + Ronchi. Good air entry Abdomen. Soft, NT, ND Neuro: Moves all extremities Current Medications Dexamethasone (Decadron -) 4 mg PO TID [facility] Last Admin: 02/14/19 13:58 Dose: 4 mg Docusate Sodium (Colace -) 100 mg PO TID [facility] Last Admin: 02/14/19 13:47 Dose: Not Given Enoxaparin Sodium (Lovenox -) 40 mg SQ DAILY [facility] Last Admin: 02/14/19 09:17 Dose: 40 mg Ferrous Gluconate (Fergon -) 324 mg PO DAILY [facility] Last Admin: 02/14/19 09:17 Dose: 324 mg Gabapentin (Neurontin -) 100 mg PO TID [facility] Guaifenesin (Robitussin -) 10 ml PO Q8H PRN PRN Reason: COUGH Last Admin: 02/13/19 04:41 Dose: 10 ml Hydromorphone HCl (Hydromorphone 10 Mg/50 Ml-Ns) 10 mg COMMISSARY PRODUCTION SUPERVISOR COMMISSARY PRODUCTION SUPERVISOR [facility]; Protocol Stop: 02/19/19 16:45 Last Admin: 02/14/19 09:10 Dose: 10 mg Insulin Aspart (Novolog Vial Sliding Scale -) 1 vial SQ ACHS [facility]; Protocol Last Admin: 02/14/19 17:44 Dose: 8 units Lidocaine (Lidoderm Patch -) 1 patch TP DAILY [facility] Last Admin: 02/14/19 09:17 Dose: 1 patch Lorazepam (Ativan -) 0.5 mg PO TID PRN PRN Reason: ANXIETY Last Admin: 02/14/19 11:39 Dose: 0.5 mg Methadone HCl (Dolophine -) 10 mg PO BID [facility] Miscellaneous (Lidoderm Patch Removal) 1 each MC DAILY@2200 [facility] Last Admin: 02/13/19 21:52 Dose: 1 each Pantoprazole Sodium (Protonix -) 40 mg PO DAILY [facility] Last Admin: 02/14/19 09:17 Dose: Not Given Etain Balance Capsules Pt Own Med (Pyxis) 1 each PO HS [facility] Last Admin: 02/13/19 21:49 Dose: 1 each Quetiapine Fumarate (Seroquel -) 50 mg PO HS [facility] Last Admin: 02/13/19 21:50 Dose: 50 mg Quetiapine Fumarate (Seroquel -) 25 mg PO DAILY PRN PRN Reason: AGITATION Last Admin: 02/14/19 16:44 Dose: 25 mg Fluticasone/Salmeterol (Advair 100mcg/50mcg -) 1 puff IH BID [facility] Last Admin: 02/14/19 09:18 Dose: Not Given Senna (Senna -) 1 tab PO BID [facility] Last Admin: 02/14/19 09:17 Dose: Not Given 02/11/19 11:35 02/11/19 06:30 Assessment and Plan 68 y/o gentleman with locally advanced squamous cell carcinoma, w/ RUL mass s/ p carbo/taxol /RT and most recently 1 cycle pembrolizumab, now with chronic pain RUE Pain management challenging with delicate balance between pain relief and delirium COMMISSARY PRODUCTION SUPERVISOR Dilaudid with unclear benefit as patient is confused and constantly moaning , unclear if due to pain. Offered to stop COMMISSARY PRODUCTION SUPERVISOR Dilaudid but daughter refused as felt pain is under control. Awaiting Pain medicine input. Discussed with pharmacy and methadone and oxycodone will be given. Pharmacist mentioned there were never stopped but daughter mentioned he did not receive them Dexamethasone for pain relief Seroquel 25 mg Neurontin Ativan 1 mg given now for sedation requested by family Palliative care, pain management and Psychiatry team input is needed. Anemia and Thrombocytopenia Discussed with daughter
[2019-02-14] MEDS: LIDOCAINE PATCH REMOVAL MC SCH (21:39)
[2019-02-14] MEDS: QUEtiapine FUMARATE 50 MG TABLET PO SCH (21:40)
[2019-02-14] MEDS: [UNRECOGNIZED DRUG - OTHER] PO SCH (21:40)
[2019-02-15] MEDS: DEXAMETHASONE 4 MG TABLET (FP) PO SCH ×3 (05:46→21:26)
[2019-02-15] MEDS: GABAPENTIN 100 MG CAPSULE (FP) PO SCH ×3 (05:46→21:26)
[2019-02-15] MEDS: DOCUSATE SODIUM 100 MG CAPSULE (FP) PO SCH ×3 (05:51→21:26)
[2019-02-15] MEDS: INSULIN SLIDING SCALE (NOVOLOG) 1 VIAL SQ SCH ×4 (06:03→21:27)
--- NOTE | 2019-02-15 06:12 | PN ---
Physical Exam: SUBJECTIVE: Patient seen and examined. He is not communicating if he is in pain. OBJECTIVE: Vital Signs Period Temp Pulse Resp BP Sys/Seo Pulse Ox Last 24 Hr 97.8 F-99.1 F 99-123 18-20 130-151/52-72 93-94 GENERAL: The patient is awake, alert, and fully oriented, in no acute distress. HEAD: Normal with no signs of trauma. EYES: PERRL, extraocular movements intact, sclera anicteric, conjunctiva clear. No ptosis. ENT: Ears normal, nares patent, moist mucous membranes. NECK: Trachea midline, full range of motion, supple. LUNGS: Breath sounds equal, clear to auscultation bilaterally, no wheezes, no crackles, no accessory muscle use. HEART: Regular rate and rhythm, S1, S2 without murmur, rub or gallop. ABDOMEN: Obese, soft, nontender, nondistended, normoactive bowel sounds EXTREMITIES: 2+ pulses, warm, well-perfused, no edema. NEUROLOGICAL: Cranial nerves II through XII grossly intact. Normal speech, gait not observed. PSYCH: Normal mood, normal affect. SKIN: Warm, dry, normal turgor, no rashes or lesions noted Laboratory Results - last 24 hr 02/14/19 02/14/19 02/15/19 17:05 21:35 05:40 POC Glucometer 311 263 228 Active Medications Generic Name Dose Route Start Last Admin Trade Name Freq PRN Reason Stop Dose Admin Dexamethasone 4 mg 02/11/19 14:00 02/15/19 05:46 Decadron - PO 4 mg TID SHIRA Administration Docusate Sodium 100 mg 02/08/19 22:00 02/15/19 05:51 Colace - PO Not Given TID SHIRA Enoxaparin Sodium 40 mg 02/09/19 10:00 02/14/19 09:17 Lovenox - SQ 40 mg DAILY SHIRA Administration Ferrous Gluconate 324 mg 02/09/19 10:00 02/14/19 09:17 Fergon - PO 324 mg DAILY SHIRA Administration Gabapentin 100 mg 02/14/19 22:00 02/15/19 05:46 Neurontin - PO 100 mg TID SHIRA Administration Guaifenesin 10 ml 02/11/19 16:47 02/13/19 04:41 Robitussin - PO 10 ml Q8H PRN Administration COUGH Hydromorphone HCl 10 mg 02/13/19 11:59 02/14/19 09:10 Hydromorphone 10 Mg/50 Ml-Ns PASTE MAKER 02/19/19 16:45 10 mg PASTE MAKER SHIRA Administration Protocol Insulin Aspart 1 vial 02/14/19 16:30 02/15/19 06:03 Novolog Vial Sliding Scale - SQ 4 units ACHS SHIRA Administration Protocol Lidocaine 1 patch 02/11/19 10:00 02/14/19 09:17 Lidoderm Patch - TP 1 patch DAILY SHIRA Administration Lorazepam 0.5 mg 02/11/19 10:58 02/14/19 11:39 Ativan - PO 0.5 mg TID PRN Administration ANXIETY Methadone HCl 10 mg 02/14/19 22:00 Dolophine - PO BID SHIRA Miscellaneous 1 each 02/11/19 22:00 02/14/19 21:39 Lidoderm Patch Removal MC 1 each DAILY@2200 SHIRA Administration Pantoprazole Sodium 40 mg 02/09/19 10:00 02/14/19 09:17 Protonix - PO Not Given DAILY SHIRA Etain Balance 1 each 02/10/19 22:00 02/14/19 21:40 Capsules Pt Own Med PO 1 each (Pyxis) HS SHIRA Administration Quetiapine Fumarate 50 mg 02/08/19 22:00 02/14/19 21:40 Seroquel - PO 50 mg HS SHIRA Administration Quetiapine Fumarate 25 mg 02/09/19 16:17 02/14/19 16:44 Seroquel - PO 25 mg DAILY PRN Administration AGITATION Fluticasone/Salmeterol 1 puff 02/08/19 22:00 02/14/19 21:39 Advair 100mcg/50mcg - IH Not Given BID SHIRA Senna 1 tab 02/13/19 11:30 02/14/19 21:39 Senna - PO 1 tab BID SHIRA Administration ASSESSMENT/PLAN: Mr. Gonzalez is a 68 y/o male with a history of RUL squamous cell carcinoma stage 4 , anemia, BPH, COPD, and GERD who presents for AMS and hypotension. He was recently admitted by Dr. Aviles after presenting to his clinic with anemia. Pt was transfused PRBCs and Hb improved. Pain management and agitation were difficult to control and pt was eventually stabilized and sent to SNF. Pt returned with AMS and hypotension. Pressure has stabilized but pain control continues to be difficult. #chronic pain 2/2 stage 4 squamous cell carcinoma Pt is intermittently restless. MRI from December- no metastasis to brain. Pt refusing CT. -decadron 4mg Q8H IV -Seroquel 50mg QHS -Seroquel 25mg PRN once a day for agitation -ativan TID PRN -methadone 10mg BID -gabapentin 100mg TID -Dilaudid 0.75mg sub Q Q6H -lidoderm patch -pt's home medical marijuana -palliative care- Family meeting today and members are in agreement to submit ian for [facility] for further pain management. -pain management consulted, recs appreciated #hyperglycemia likely 2/2 steroid use 200s with isolated 300s recent days -BGM -SSI #hypokalemia, resolved -repleted -monitor #hypotension, resolved Likely 2/2 to pain medication. Afebrile. No leukocytosis. Sepsis workup negative. - hold antihypertensive medication #agitation Reported to have suicidal thoughts at admission. Not present now. He is restless and has pulled out IVs multiple times. -1:1 discontinued -direct supervision -hand mittens as needed -psych following #GERD -continue pantoprazole #COPD -continue Advair #constipation -colace and senna DVT ppx Lovenox 40 sq daily FEN PO fluids regular diet monitor K Dispo: monitor on med surg FULL CODE No legal healthcare proxy. Visit type - Emergency Visit Emergency Visit: Yes ED Registration Date: 02/08/19 Care time: The patient presented to the Emergency Department on the above date and was hospitalized for further evaluation of their emergent condition. - New Patient This patient is new to me today: No - Critical Care Critical Care patient: No - Discharge Referral Referred to [facility] Med P.C.: No ATTENDING PHYSICIAN STATEMENT I saw and evaluated the patient. I reviewed the resident's note and discussed the case with the resident. I agree with the resident's findings and plan as documented. SUBJECTIVE: OBJECTIVE: ASSESSMENT AND PLAN:
[2019-02-15] MEDS: FERROUS GLUCONATE 324 MG TAB (FP) PO SCH (09:38)
[2019-02-15] MEDS: METHADONE HCL 10 MG TABLET PO SCH ×2 (09:38→21:26)
[2019-02-15] MEDS: LIDOCAINE 5% TOPICAL PATCH TP SCH (09:39)
[2019-02-15] MEDS: ENOXAPARIN NA (PORCINE) 40 MG/0.4 ML DISP.SYRIN SQ SCH (09:39)
[2019-02-15] MEDS: FLUTICASONE/SALMETEROL 100 MCG/50 MCG DISKUS IH SCH ×2 (09:39→22:38)
[2019-02-15] MEDS: SENNOSIDES 8.6MG TABLET (FP) PO SCH ×2 (09:39→21:26)
[2019-02-15] MEDS: PANTOPRAZOLE 40 MG TABLET (FP) PO SCH (09:39)
[2019-02-15] MEDS ORDERED: HYDROmorphone HCl 2 MG/ML VIAL IM SCH (11:00)
[2019-02-15] MEDS: HYDROmorphone *PCA* 10MG/50ML DISP.SYRIN PCA SCH (11:03)
[2019-02-15] MEDS: LORazepam 0.5 MG TABLET PO PRN ×2 (11:32→20:28)
--- NOTE | 2019-02-15 14:38 | PN ---
Progress Note (short form) - Note Progress Note: PULMONARY Remains confused. No fevers recorded. Vital Signs Period Temp Pulse Resp BP Sys/Seo Pulse Ox Last 24 Hr 97.9 F-98.7 F 99-122 18-20 116-151/67-86 93-95 Gen: restless Heart: RRR Lung: decreased breath sounds at the bases Abd: soft, nontender Ext: + edema CBC, BMP 02/11/19 11:35 02/11/19 06:30 Active Medications Dexamethasone (Decadron -) 4 mg PO TID [facility] Last Admin: 02/15/19 14:16 Dose: 4 mg Docusate Sodium (Colace -) 100 mg PO TID [facility] Last Admin: 02/15/19 14:16 Dose: Not Given Enoxaparin Sodium (Lovenox -) 40 mg SQ DAILY [facility] Last Admin: 02/15/19 09:39 Dose: 40 mg Ferrous Gluconate (Fergon -) 324 mg PO DAILY [facility] Last Admin: 02/15/19 09:38 Dose: 324 mg Gabapentin (Neurontin -) 100 mg PO TID [facility] Last Admin: 02/15/19 14:16 Dose: 100 mg Guaifenesin (Robitussin -) 10 ml PO Q8H PRN PRN Reason: COUGH Last Admin: 02/13/19 04:41 Dose: 10 ml Hydromorphone HCl (Hydromorphone 10 Mg/50 Ml-Ns) 10 mg DRAW BENCH OPERATOR HELPER DRAW BENCH OPERATOR HELPER [facility]; Protocol Stop: 02/19/19 16:45 Last Admin: 02/15/19 11:03 Dose: 10 mg Hydromorphone HCl (Dilaudid Vial -) 0.5 mg IM Q6H [facility] Last Admin: 02/15/19 12:27 Dose: 0.5 mg Insulin Aspart (Novolog Vial Sliding Scale -) 1 vial SQ ACHS [facility]; Protocol Last Admin: 02/15/19 12:30 Dose: 6 units Lidocaine (Lidoderm Patch -) 1 patch TP DAILY [facility] Last Admin: 02/15/19 09:39 Dose: 1 patch Lorazepam (Ativan -) 0.5 mg PO TID PRN PRN Reason: ANXIETY Last Admin: 02/15/19 11:32 Dose: 0.5 mg Methadone HCl (Dolophine -) 10 mg PO BID [facility] Last Admin: 02/15/19 09:38 Dose: 10 mg Miscellaneous (Lidoderm Patch Removal) 1 each MC DAILY@2200 [facility] Last Admin: 02/14/19 21:39 Dose: 1 each Pantoprazole Sodium (Protonix -) 40 mg PO DAILY [facility] Last Admin: 02/15/19 09:39 Dose: 40 mg Etain Balance Capsules Pt Own Med (Pyxis) 1 each PO HS [facility] Last Admin: 02/14/19 21:40 Dose: 1 each Quetiapine Fumarate (Seroquel -) 50 mg PO HS [facility] Last Admin: 02/14/19 21:40 Dose: 50 mg Quetiapine Fumarate (Seroquel -) 25 mg PO DAILY PRN PRN Reason: AGITATION Last Admin: 02/14/19 16:44 Dose: 25 mg Fluticasone/Salmeterol (Advair 100mcg/50mcg -) 1 puff IH BID [facility] Last Admin: 02/15/19 09:39 Dose: 1 puff Senna (Senna -) 1 tab PO BID [facility] Last Admin: 02/15/19 09:39 Dose: 1 tab A/P NSCLC - Squamous Polysubstance Abuse Methadone Maintenance h/o SBO Anemia Thrombocytopenia - inhaled bronchodilators - O2 to keep Spo2 >90% - pain control - agree with palliative placement
[2019-02-15] MEDS: QUEtiapine FUMARATE 25 MG TABLET (FP) PO PRN (15:21)
--- NOTE | 2019-02-15 16:10 | PN ---
Teaching Attending Note Name of Resident: Ashli Bautista ATTENDING PHYSICIAN STATEMENT I saw and evaluated the patient. I reviewed the resident's note and discussed the case with the resident. I agree with the resident's findings and plan as documented. SUBJECTIVE: Seen and examined at bedside, patient is restless, uncomfortable OBJECTIVE: Vital Signs Period Temp Pulse Resp BP Sys/Eso Pulse Ox Last 24 Hr 97.9 F-98.7 F 99-127 18-20 110-151/67-86 93-95 Physical Exam: Gen: restless, uncomfortable CVS: s1s2, tachycardic Abd: soft, ntnd Lungs: cta b/l unlabored Ext: no cce, hands in mits Current Medications Generic Name Dose Route Start Last Admin Trade Name Freq PRN Reason Stop Dose Admin Dexamethasone 4 mg 02/11/19 14:00 02/15/19 14:16 Decadron - PO 4 mg TID SHIRA Administration Docusate Sodium 100 mg 02/08/19 22:00 02/15/19 14:16 Colace - PO Not Given TID SHIRA Enoxaparin Sodium 40 mg 02/09/19 10:00 02/15/19 09:39 Lovenox - SQ 40 mg DAILY SHIRA Administration Ferrous Gluconate 324 mg 02/09/19 10:00 02/15/19 09:38 Fergon - PO 324 mg DAILY SHIRA Administration Gabapentin 100 mg 02/14/19 22:00 02/15/19 14:16 Neurontin - PO 100 mg TID SHIRA Administration Guaifenesin 10 ml 02/11/19 16:47 02/13/19 04:41 Robitussin - PO 10 ml Q8H PRN Administration COUGH Hydromorphone HCl 10 mg 02/13/19 11:59 02/15/19 11:03 Hydromorphone 10 Mg/50 Ml-Ns BUCKLE SEWER 02/19/19 16:45 10 mg BUCKLE SEWER SHIRA Administration Protocol Hydromorphone HCl 0.75 mg 02/15/19 18:00 Dilaudid Vial - SQ Q6H SHIRA Insulin Aspart 1 vial 02/14/19 16:30 02/15/19 12:30 Novolog Vial Sliding Scale - SQ 6 units ACHS SHIRA Administration Protocol Lidocaine 1 patch 02/11/19 10:00 02/15/19 09:39 Lidoderm Patch - TP 1 patch DAILY SHIRA Administration Lorazepam 0.5 mg 02/11/19 10:58 02/15/19 11:32 Ativan - PO 0.5 mg TID PRN Administration ANXIETY Methadone HCl 10 mg 02/14/19 22:00 02/15/19 09:38 Dolophine - PO 10 mg BID SHIRA Administration Miscellaneous 1 each 02/11/19 22:00 02/14/19 21:39 Lidoderm Patch Removal MC 1 each DAILY@2200 SHIRA Administration Pantoprazole Sodium 40 mg 02/09/19 10:00 02/15/19 09:39 Protonix - PO 40 mg DAILY SHIRA Administration Etain Balance 1 each 02/10/19 22:00 02/14/19 21:40 Capsules Pt Own Med PO 1 each (Pyxis) HS SHIRA Administration Quetiapine Fumarate 50 mg 02/08/19 22:00 02/14/19 21:40 Seroquel - PO 50 mg HS SHIRA Administration Quetiapine Fumarate 25 mg 02/09/19 16:17 02/15/19 15:21 Seroquel - PO 25 mg DAILY PRN Administration AGITATION Fluticasone/Salmeterol 1 puff 02/08/19 22:00 02/15/19 09:39 Advair 100mcg/50mcg - IH 1 puff BID SHIRA Administration Senna 1 tab 02/13/19 11:30 02/15/19 09:39 Senna - PO 1 tab BID SHIRA Administration Laboratory Results - last 24 hr 02/14/19 02/14/19 02/15/19 17:05 21:35 05:40 POC Glucometer 311 263 228 02/15/19 11:35 POC Glucometer 257 ASSESSMENT: 68 year old man with a history of squamous cell lung cancer, bowel resection secondary to obstruction, tobacco use, alcohol use, chronic pain syndrome, opioid dependence who was sent to the ED from [place] for evaluation of hypotension. Acute metabolic encephalopathy-resolved Hypotension-resolved Depression and anxiety with suicidal ideation COPD Anemia of Chronic Disease SC Lung CA Chronic Pain Syndrome PLAN: -pain control inadequate, component of anxiety as well -started on additional dilaudid Q6H standing to better control pain, patient is also on methadone, gabapentin, decadron, continuous dilaudid BUCKLE SEWER -pain mngmt reecs would be appreciated -continue Seroquel -ativan as needed -palliative care, [facility] -COPD stable
[2019-02-15] MEDS: HYDROmorphone HCl 2 MG/ML VIAL SQ SCH (18:26)
--- NOTE | 2019-02-15 21:00 | PN ---
Progress Note (short form) - Note Progress Note: I have seen and examined Karl Gonzalez. 68 y/o gentleman with a history of RUL squamous cell carcinoma stage 4, anemia, BPH, COPD, and GERD who presented for AMS, hypotension and suicidal ideation. S: Confused but not moaning. Does not seem to be in pain now O: Last Vital Signs Temp Pulse Resp BP Pulse Ox 98.2 F 106 H 20 119/70 96 02/15/19 20:31 02/15/19 20:33 02/15/19 20:33 02/15/19 20:31 02/15/19 20:33 General: in severe distress due to pain vs confusion HEENT MMM CVS S1, S2 Lung: + Ronchi. Good air entry Abdomen. Soft, NT, ND Neuro: Moves all extremities Current Medications Dexamethasone (Decadron -) 4 mg PO TID [facility] Last Admin: 02/15/19 14:16 Dose: 4 mg Docusate Sodium (Colace -) 100 mg PO TID [facility] Last Admin: 02/15/19 14:16 Dose: Not Given Enoxaparin Sodium (Lovenox -) 40 mg SQ DAILY [facility] Last Admin: 02/15/19 09:39 Dose: 40 mg Ferrous Gluconate (Fergon -) 324 mg PO DAILY [facility] Last Admin: 02/15/19 09:38 Dose: 324 mg Gabapentin (Neurontin -) 100 mg PO TID [facility] Last Admin: 02/15/19 14:16 Dose: 100 mg Guaifenesin (Robitussin -) 10 ml PO Q8H PRN PRN Reason: COUGH Last Admin: 02/13/19 04:41 Dose: 10 ml Hydromorphone HCl (Hydromorphone 10 Mg/50 Ml-Ns) 10 mg VISUALIZATION DEVELOPER VISUALIZATION DEVELOPER [facility]; Protocol Stop: 02/19/19 16:45 Last Admin: 02/15/19 11:03 Dose: 10 mg Hydromorphone HCl (Dilaudid Vial -) 0.75 mg SQ Q6H [facility] Last Admin: 02/15/19 18:26 Dose: Not Given Insulin Aspart (Novolog Vial Sliding Scale -) 1 vial SQ ACHS [facility]; Protocol Last Admin: 02/15/19 18:27 Dose: 8 units Lidocaine (Lidoderm Patch -) 1 patch TP DAILY [facility] Last Admin: 02/15/19 09:39 Dose: 1 patch Lorazepam (Ativan -) 0.5 mg PO TID PRN PRN Reason: ANXIETY Last Admin: 02/15/19 20:28 Dose: 0.5 mg Methadone HCl (Dolophine -) 10 mg PO BID [facility] Last Admin: 02/15/19 09:38 Dose: 10 mg Miscellaneous (Lidoderm Patch Removal) 1 each MC DAILY@2200 [facility] Last Admin: 02/14/19 21:39 Dose: 1 each Pantoprazole Sodium (Protonix -) 40 mg PO DAILY [facility] Last Admin: 02/15/19 09:39 Dose: 40 mg Etain Balance Capsules Pt Own Med (Pyxis) 1 each PO HS [facility] Last Admin: 02/14/19 21:40 Dose: 1 each Quetiapine Fumarate (Seroquel -) 50 mg PO HS [facility] Last Admin: 02/14/19 21:40 Dose: 50 mg Quetiapine Fumarate (Seroquel -) 25 mg PO DAILY PRN PRN Reason: AGITATION Last Admin: 02/15/19 15:21 Dose: 25 mg Fluticasone/Salmeterol (Advair 100mcg/50mcg -) 1 puff IH BID [facility] Last Admin: 02/15/19 09:39 Dose: 1 puff Senna (Senna -) 1 tab PO BID [facility] Last Admin: 02/15/19 09:39 Dose: 1 tab 02/11/19 11:35 02/11/19 06:30 Assessment and Plan 68 y/o gentleman with locally advanced squamous cell carcinoma, w/ RUL mass s/ p carbo/taxol /RT and most recently 1 cycle pembrolizumab, now with chronic pain RUE Pain management challenging with delicate balance between pain relief and delirium VISUALIZATION DEVELOPER Dilaudid and Dilaudid Q6. Also methadone, gabapentin, seroquel. Dexamethasone for pain relief Responding to ativan per agitation Palliative care, pain management and Psychiatry team input is needed. Pt not oreinted, on mittens and 1:1 which maybe challenging when considering [place] evaluation Discussed with daughter
[2019-02-15] MEDS: [UNRECOGNIZED DRUG - OTHER] PO SCH (21:26)
[2019-02-15] MEDS: LIDOCAINE PATCH REMOVAL MC SCH (21:27)
[2019-02-15] MEDS: QUEtiapine FUMARATE 50 MG TABLET PO SCH (21:28)
[2019-02-16] MEDS: HYDROmorphone HCl 2 MG/ML VIAL SQ SCH ×3 (01:21→14:36)
[2019-02-16] MEDS: DEXAMETHASONE 4 MG TABLET (FP) PO SCH ×3 (05:15→22:52)
[2019-02-16] MEDS: GABAPENTIN 100 MG CAPSULE (FP) PO SCH ×3 (05:15→21:04)
[2019-02-16] MEDS: DOCUSATE SODIUM 100 MG CAPSULE (FP) PO SCH ×3 (05:23→21:04)
[2019-02-16] MEDS: INSULIN SLIDING SCALE (NOVOLOG) 1 VIAL SQ SCH ×3 (06:14→22:53)
[2019-02-16] MEDS: METHADONE HCL 10 MG TABLET PO SCH (10:03)
[2019-02-16] MEDS: FERROUS GLUCONATE 324 MG TAB (FP) PO SCH (10:08)
[2019-02-16] MEDS: FLUTICASONE/SALMETEROL 100 MCG/50 MCG DISKUS IH SCH ×2 (10:08→22:52)
[2019-02-16] MEDS: LIDOCAINE 5% TOPICAL PATCH TP SCH (10:08)
[2019-02-16] MEDS: PANTOPRAZOLE 40 MG TABLET (FP) PO SCH (10:08)
[2019-02-16] MEDS: SENNOSIDES 8.6MG TABLET (FP) PO SCH ×2 (10:08→21:03)
--- NOTE | 2019-02-16 10:40 | PN ---
Progress Note (short form) - Note Progress Note: PULMONARY Remains confused. No fevers recorded. Vital Signs Period Temp Pulse Resp BP Sys/Seo Pulse Ox Last 24 Hr 98 F-99.0 F 101-127 15-25 110-156/68-93 94-98 Gen: restless Heart: RRR Lung: decreased breath sounds at the bases Abd: soft, nontender Ext: + edema CBC, BMP 02/11/19 11:35 02/11/19 06:30 Active Medications Dexamethasone (Decadron -) 4 mg PO TID [facility] Last Admin: 02/16/19 05:15 Dose: 4 mg Docusate Sodium (Colace -) 100 mg PO TID [facility] Last Admin: 02/16/19 05:23 Dose: Not Given Ferrous Gluconate (Fergon -) 324 mg PO DAILY [facility] Last Admin: 02/16/19 10:08 Dose: Not Given Gabapentin (Neurontin -) 100 mg PO TID [facility] Last Admin: 02/16/19 05:15 Dose: 100 mg Guaifenesin (Robitussin -) 10 ml PO Q8H PRN PRN Reason: COUGH Last Admin: 02/13/19 04:41 Dose: 10 ml Hydromorphone HCl (Hydromorphone 10 Mg/50 Ml-Ns) 10 mg CORRECTIONAL SUPERVISING COOK CORRECTIONAL SUPERVISING COOK [facility]; Protocol Stop: 02/19/19 16:45 Last Admin: 02/15/19 11:03 Dose: 10 mg Hydromorphone HCl (Dilaudid Vial -) 0.75 mg SQ Q6H [facility] Last Admin: 02/16/19 05:19 Dose: 0.75 mg Insulin Aspart (Novolog Vial Sliding Scale -) 1 vial SQ ACHS [facility]; Protocol Last Admin: 02/16/19 06:14 Dose: 2 units Lidocaine (Lidoderm Patch -) 1 patch TP DAILY [facility] Last Admin: 02/16/19 10:08 Dose: Not Given Lorazepam (Ativan -) 0.5 mg PO TID PRN PRN Reason: ANXIETY Last Admin: 02/15/19 20:28 Dose: 0.5 mg Methadone HCl (Dolophine -) 10 mg PO BID [facility] Last Admin: 02/16/19 10:03 Dose: 10 mg Miscellaneous (Lidoderm Patch Removal) 1 each MC DAILY@2200 [facility] Last Admin: 02/15/19 21:27 Dose: 1 each Pantoprazole Sodium (Protonix -) 40 mg PO DAILY [facility] Last Admin: 02/16/19 10:08 Dose: Not Given Etain Balance Capsules Pt Own Med (Pyxis) 1 each PO HS [facility] Last Admin: 02/15/19 21:26 Dose: 1 each Quetiapine Fumarate (Seroquel -) 50 mg PO HS [facility] Last Admin: 02/15/19 21:28 Dose: 50 mg Quetiapine Fumarate (Seroquel -) 25 mg PO DAILY PRN PRN Reason: AGITATION Last Admin: 02/15/19 15:21 Dose: 25 mg Fluticasone/Salmeterol (Advair 100mcg/50mcg -) 1 puff IH BID [facility] Last Admin: 02/16/19 10:08 Dose: Not Given Senna (Senna -) 1 tab PO BID [facility] Last Admin: 02/16/19 10:08 Dose: Not Given A/P NSCLC - Squamous Polysubstance Abuse Methadone Maintenance h/o SBO Anemia Thrombocytopenia - inhaled bronchodilators - O2 to keep Spo2 >90% - pain control - agree with palliative placement
[2019-02-16] MEDS: HYDROmorphone *PCA* 10MG/50ML DISP.SYRIN PCA SCH (15:03)
--- NOTE | 2019-02-16 17:28 | PN ---
Teaching Attending Note Name of Resident: Sherry Kapadia ATTENDING PHYSICIAN STATEMENT I saw and evaluated the patient. I reviewed the resident's note and discussed the case with the resident. I agree with the resident's findings and plan as documented with exceptions below. SUBJECTIVE: patient seen and examined, anxious, sitting upright, not answering questions, unable to do ROS. OBJECTIVE: Vital Signs Period Temp Pulse Resp BP Sys/Seo Pulse Ox Last 24 Hr 98 F-99.2 F 101-131 15-25 118-156/68-93 94-96 Intake & Output 02/13/19 02/14/19 02/15/19 02/16/19 23:59 23:59 23:59 23:59 Intake Total 978 200 350 0 Balance 978 200 350 0 General: sitting in bed leaning forward, tachypneic Chest: decreased air entry all over Abdomen: soft, NT Extremities: mittens, no edema Home Medications Medication Instructions Recorded Docusate Sodium [Colace] 100 mg PO TID 01/05/19 Gabapentin 300 mg PO Q8H PRN 01/05/19 Oxycodone HCl 5 mg PO Q4H PRN 01/05/19 Pantoprazole Sodium [Protonix] 40 mg PO DAILY 01/05/19 Tamsulosin HCl 0.4 mg PO BID 01/05/19 Ferrous Gluconate [Fergon -] 324 mg PO DAILY #30 tab 01/08/19 Methadone [Dolophine -] 10 mg PO Q12H 01/08/19 Salmeterol/Fluticasone [Advair 2 puff IH Q12H PRN 01/25/19 100Mcg/50Mcg -] Metoprolol Tartrate [Lopressor -] 50 mg PO BID 30 Days #60 tablet 02/03/19 Quetiapine Fumarate [Seroquel -] 50 mg PO BID 30 Days #60 tablet 02/03/19 Active Medications Dexamethasone (Decadron -) 4 mg PO TID [facility] Last Admin: 02/16/19 14:36 Dose: 4 mg Docusate Sodium (Colace -) 100 mg PO TID [facility] Last Admin: 02/16/19 14:36 Dose: 100 mg Ferrous Gluconate (Fergon -) 324 mg PO DAILY [facility] Last Admin: 02/16/19 10:08 Dose: Not Given Gabapentin (Neurontin -) 100 mg PO TID [facility] Last Admin: 02/16/19 14:36 Dose: 100 mg Guaifenesin (Robitussin -) 10 ml PO Q8H PRN PRN Reason: COUGH Last Admin: 02/13/19 04:41 Dose: 10 ml Hydromorphone HCl (Hydromorphone 10 Mg/50 Ml-Ns) 10 mg HEAT AND FROST INSULATOR HELPER HEAT AND FROST INSULATOR HELPER SHIRA; Protocol Stop: 02/19/19 16:45 Last Admin: 02/16/19 15:03 Dose: 10 mg Hydromorphone HCl (Dilaudid Vial -) 0.75 mg IVPB Q6H SHIRA Insulin Aspart (Novolog Vial Sliding Scale -) 1 vial SQ ACHS [facility]; Protocol Last Admin: 02/16/19 12:20 Dose: 4 units Lidocaine (Lidoderm Patch -) 1 patch TP DAILY [facility] Last Admin: 02/16/19 10:08 Dose: Not Given Lorazepam (Ativan -) 0.5 mg PO TID PRN PRN Reason: ANXIETY Last Admin: 02/15/19 20:28 Dose: 0.5 mg Methadone HCl (Dolophine -) 5 mg PO BID [facility] Miscellaneous (Lidoderm Patch Removal) 1 each MC DAILY@2200 [facility] Last Admin: 02/15/19 21:27 Dose: 1 each Pantoprazole Sodium (Protonix -) 40 mg PO DAILY [facility] Last Admin: 02/16/19 10:08 Dose: Not Given Etain Balance Capsules Pt Own Med (Pyxis) 1 each PO HS [facility] Last Admin: 02/15/19 21:26 Dose: 1 each Quetiapine Fumarate (Seroquel -) 50 mg PO HS [facility] Last Admin: 02/15/19 21:28 Dose: 50 mg Quetiapine Fumarate (Seroquel -) 25 mg PO DAILY PRN PRN Reason: AGITATION Last Admin: 02/15/19 15:21 Dose: 25 mg Fluticasone/Salmeterol (Advair 100mcg/50mcg -) 1 puff IH BID [facility] Last Admin: 02/16/19 10:08 Dose: Not Given Senna (Senna -) 1 tab PO BID [facility] Last Admin: 02/16/19 10:08 Dose: Not Given Laboratory Results - last 24 hr 02/15/19 02/16/19 02/16/19 21:17 06:10 12:08 POC Glucometer 256 195 225 02/16/19 17:12 POC Glucometer 335 Microbiology 02/08/19 19:45 Blood - Peripheral Venous Blood Culture - Final NO GROWTH AFTER 5 DAYS INCUBATION 02/08/19 19:45 Blood - Peripheral Venous Blood Culture - Final NO GROWTH AFTER 5 DAYS INCUBATION 02/08/19 22:30 Urine - Urine Clean Catch Urine Culture - Final Normal Urogenital Ai ASSESSMENT AND PLAN: 68 year old man with a history of squamous cell lung cancer, bowel resection secondary to obstruction, tobacco use, alcohol use, chronic pain syndrome, opioid dependence who was sent to the ED from [place] for evaluation of hypotension. Acute metabolic encephalopathy-resolved Hypotension-resolved Depression and anxiety with suicidal ideation COPD Anemia of Chronic Disease [place] Lung CA Chronic Pain Syndrome Plan: Dilaudid HEAT AND FROST INSULATOR HELPER, stop breakthrough, patient no using. Standing low dose IV dilaudid q6h Methadone taper. lidocaine patch. Will change to fentanyl patch if fails to improve Psych/pain management input noted. Seroquel 1:1 constant observation [id number] lovenox Dispo plan for [facility] when agitation improved. Discussed with nursing.
[2019-02-16] MEDS: HYDROmorphone HCl 2 MG/ML VIAL IVPB SCH (17:44)
--- NOTE | 2019-02-16 19:08 | PN ---
Physical Exam: SUBJECTIVE: Patient seen and examined. He was resting during exam. Per aide, he has restless overnight. OBJECTIVE: Vital Signs Period Temp Pulse Resp BP Sys/Seo Pulse Ox Last 24 Hr 98 F-99.2 F 101-131 15-25 118-156/68-93 94-96 GENERAL: The patient is sleeping, in no acute distress. HEAD: Normal with no signs of trauma. EYES: PERRL, extraocular movements intact, sclera anicteric, conjunctiva clear. No ptosis. ENT: Ears normal, nares patent, moist mucous membranes. NECK: Trachea midline, full range of motion, supple. LUNGS: Breath sounds equal, clear to auscultation bilaterally, no wheezes, no crackles, no accessory muscle use. HEART: Regular rate and rhythm, S1, S2 without murmur, rub or gallop. ABDOMEN: Obese, soft, nontender, nondistended, normoactive bowel sounds EXTREMITIES: 2+ pulses, warm, well-perfused, no edema. NEUROLOGICAL: Cranial nerves II through XII grossly intact. Normal speech, gait not observed. PSYCH: Normal mood, normal affect. SKIN: Warm, dry, normal turgor, no rashes or lesions noted Laboratory Results - last 24 hr 02/15/19 02/16/19 02/16/19 21:17 06:10 12:08 POC Glucometer 256 195 225 02/16/19 17:12 POC Glucometer 335 Active Medications Generic Name Dose Route Start Last Admin Trade Name Freq PRN Reason Stop Dose Admin Dexamethasone 4 mg 02/11/19 14:00 02/16/19 14:36 Decadron - PO 4 mg TID SHIRA Administration Docusate Sodium 100 mg 02/08/19 22:00 02/16/19 14:36 Colace - PO 100 mg TID SHIRA Administration Enoxaparin Sodium 40 mg 02/17/19 10:00 Lovenox - SQ DAILY SHIRA Ferrous Gluconate 324 mg 02/09/19 10:00 02/16/19 10:08 Fergon - PO Not Given DAILY SHIRA Gabapentin 100 mg 02/14/19 22:00 02/16/19 14:36 Neurontin - PO 100 mg TID SHIRA Administration Guaifenesin 10 ml 02/11/19 16:47 02/13/19 04:41 Robitussin - PO 10 ml Q8H PRN Administration COUGH Hydromorphone HCl 10 mg 02/16/19 14:38 02/16/19 15:03 Hydromorphone 10 Mg/50 Ml-Ns DIE EQUIPMENT OPERATOR 02/19/19 16:45 10 mg DIE EQUIPMENT OPERATOR SHIRA Administration Protocol Hydromorphone HCl 0.75 mg 02/16/19 18:00 02/16/19 17:44 Dilaudid Vial - IVPB 0.75 mg Q6H SHIRA Administration Insulin Aspart 1 vial 02/14/19 16:30 02/16/19 12:20 Novolog Vial Sliding Scale - SQ 4 units ACHS SHIRA Administration Protocol Lidocaine 1 patch 02/11/19 10:00 02/16/19 10:08 Lidoderm Patch - TP Not Given DAILY SHIRA Lorazepam 0.5 mg 02/11/19 10:58 02/15/19 20:28 Ativan - PO 0.5 mg TID PRN Administration ANXIETY Methadone HCl 5 mg 02/16/19 22:00 Dolophine - PO BID SHIRA Miscellaneous 1 each 02/11/19 22:00 02/15/19 21:27 Lidoderm Patch Removal MC 1 each DAILY@2200 SHIRA Administration Pantoprazole Sodium 40 mg 02/09/19 10:00 02/16/19 10:08 Protonix - PO Not Given DAILY SHIRA Etain Balance 1 each 02/10/19 22:00 02/15/19 21:26 Capsules Pt Own Med PO 1 each (Pyxis) HS SHIRA Administration Quetiapine Fumarate 50 mg 02/08/19 22:00 02/15/19 21:28 Seroquel - PO 50 mg HS SHIRA Administration Quetiapine Fumarate 25 mg 02/09/19 16:17 02/15/19 15:21 Seroquel - PO 25 mg DAILY PRN Administration AGITATION Fluticasone/Salmeterol 1 puff 02/08/19 22:00 02/16/19 10:08 Advair 100mcg/50mcg - IH Not Given BID SHIRA Senna 1 tab 02/13/19 11:30 02/16/19 10:08 Senna - PO Not Given BID SHIRA ASSESSMENT/PLAN: Mr. Gonzalez is a 68 y/o male with a history of RUL squamous cell carcinoma stage 4 , anemia, BPH, COPD, and GERD who presents for AMS and hypotension. He was recently admitted by Dr. Aviles after presenting to his clinic with anemia. Pt was transfused PRBCs and Hb improved. Pain management and agitation were difficult to control and pt was eventually stabilized and sent to SNF. Pt returned with AMS and hypotension. Pressure has stabilized but pain control continues to be difficult. #chronic pain 2/2 stage 4 squamous cell carcinoma Pt is intermittently restless. MRI from December- no metastasis to brain. Pt refusing CT. DIE EQUIPMENT OPERATOR pump discontinued as pt was unable to use. -decadron 4mg Q8H IV -Seroquel 50mg QHS -Seroquel 25mg PRN once a day for agitation -ativan TID PRN -methadone 10mg BID -gabapentin 100mg TID -Dilaudid 0.75mg sub Q Q6H -lidoderm patch -pt's home medical marijuana -palliative care- Family meeting today and members are in agreement to submit ian for [facility] for further pain management. #hyperglycemia likely 2/2 steroid use 200s with isolated 300s recent days -BGM -SSI #hypokalemia, resolved -repleted -monitor #hypotension, resolved Likely 2/2 to pain medication. Afebrile. No leukocytosis. Sepsis workup negative. - hold antihypertensive medication #agitation Reported to have suicidal thoughts at admission. Not present now. He is restless and has pulled out IVs multiple times. -1:1 discontinued -direct supervision -hand mittens as needed -psych following #GERD -continue pantoprazole #COPD -continue Advair #constipation -colace and senna DVT ppx Lovenox 40 sq daily FEN PO fluids regular diet monitor K Dispo: monitor on med surg, potential d/c to [facility] when bed opens and agitation improves FULL CODE No legal healthcare proxy. Visit type - Emergency Visit Emergency Visit: Yes ED Registration Date: 02/08/19 Care time: The patient presented to the Emergency Department on the above date and was hospitalized for further evaluation of their emergent condition. - New Patient This patient is new to me today: No - Critical Care Critical Care patient: No - Discharge Referral Referred to [facility] Med P.C.: No ATTENDING PHYSICIAN STATEMENT I saw and evaluated the patient. I reviewed the resident's note and discussed the case with the resident. I agree with the resident's findings and plan as documented. SUBJECTIVE: OBJECTIVE: ASSESSMENT AND PLAN:
--- NOTE | 2019-02-16 19:59 | PN ---
Progress Note (short form) - Note Progress Note: Remains confused Pain seems better controlled according to family Last Vital Signs Temp Pulse Resp BP Pulse Ox 99.2 F 131 H 20 121/68 95 02/16/19 14:49 02/16/19 15:03 02/16/19 15:03 02/16/19 15:03 02/16/19 15:03 Lungs - relatively clear Cor-RSR Abd- soft Ext- neg CBC, BMP 02/11/19 11:35 02/11/19 06:30 Current Medications Generic Name Dose Route Start Last Admin Trade Name Freq PRN Reason Stop Dose Admin Dexamethasone 4 mg 02/16/19 22:00 Decadron - PO BID SHIRA Docusate Sodium 100 mg 02/08/19 22:00 02/16/19 14:36 Colace - PO 100 mg TID SHIRA Administration Enoxaparin Sodium 40 mg 02/17/19 10:00 Lovenox - SQ DAILY SHIRA Ferrous Gluconate 324 mg 02/09/19 10:00 02/16/19 10:08 Fergon - PO Not Given DAILY SHIRA Gabapentin 100 mg 02/14/19 22:00 02/16/19 14:36 Neurontin - PO 100 mg TID SHIRA Administration Guaifenesin 10 ml 02/11/19 16:47 02/13/19 04:41 Robitussin - PO 10 ml Q8H PRN Administration COUGH Hydromorphone HCl 10 mg 02/16/19 14:38 02/16/19 15:03 Hydromorphone 10 Mg/50 Ml-Ns WHARF TALLY CLERK 02/19/19 16:45 10 mg WHARF TALLY CLERK SHIRA Administration Protocol Hydromorphone HCl 0.75 mg 02/16/19 18:00 02/16/19 17:44 Dilaudid Vial - IVPB 0.75 mg Q6H SHIRA Administration Insulin Aspart 1 vial 02/14/19 16:30 02/16/19 12:20 Novolog Vial Sliding Scale - SQ 4 units ACHS SHIRA Administration Protocol Lidocaine 1 patch 02/11/19 10:00 02/16/19 10:08 Lidoderm Patch - TP Not Given DAILY SHIRA Lorazepam 0.5 mg 02/11/19 10:58 02/15/19 20:28 Ativan - PO 0.5 mg TID PRN Administration ANXIETY Methadone HCl 5 mg 02/16/19 22:00 Dolophine - PO BID SHIRA Miscellaneous 1 each 02/11/19 22:00 02/15/19 21:27 Lidoderm Patch Removal MC 1 each DAILY@2200 SHIRA Administration Pantoprazole Sodium 40 mg 02/09/19 10:00 02/16/19 10:08 Protonix - PO Not Given DAILY SHIRA Etain Balance 1 each 02/10/19 22:00 02/15/19 21:26 Capsules Pt Own Med PO 1 each (Pyxis) HS SHIRA Administration Quetiapine Fumarate 50 mg 02/08/19 22:00 02/15/19 21:28 Seroquel - PO 50 mg HS SHIRA Administration Quetiapine Fumarate 25 mg 02/09/19 16:17 02/15/19 15:21 Seroquel - PO 25 mg DAILY PRN Administration AGITATION Fluticasone/Salmeterol 1 puff 02/08/19 22:00 02/16/19 10:08 Advair 100mcg/50mcg - IH Not Given BID SHIRA Senna 1 tab 02/13/19 11:30 02/16/19 10:08 Senna - PO Not Given BID SHIRA Impression: [facility] lung pain management Confusion 1:1 secondary to suicide attempt
[2019-02-16] MEDS: LORazepam 0.5 MG TABLET PO PRN (20:31)
[2019-02-16] MEDS ORDERED: PT OWN MED (PYXIS) ONE (21:01)
[2019-02-16] MEDS: METHADONE HCL 5 MG TABLET PO SCH (21:03)
[2019-02-16] MEDS: QUEtiapine FUMARATE 50 MG TABLET PO SCH (21:03)
[2019-02-16] MEDS: [UNRECOGNIZED DRUG - OTHER] PO SCH (21:05)
[2019-02-16] MEDS ORDERED: MELATONIN 5 MG TABLETS PO ONE (22:20)
[2019-02-16] MEDS: LIDOCAINE PATCH REMOVAL MC SCH (22:54)
[2019-02-17] MEDS: HYDROmorphone HCl 2 MG/ML VIAL IVPB SCH ×4 (00:35→18:27)
[2019-02-17] MEDS ORDERED: PT OWN MED (PYXIS) ONE (00:59)
[2019-02-17] MEDS: GABAPENTIN 100 MG CAPSULE (FP) PO SCH ×3 (06:03→21:39)
[2019-02-17] MEDS: DOCUSATE SODIUM 100 MG CAPSULE (FP) PO SCH ×3 (06:03→21:39)
[2019-02-17] MEDS: INSULIN SLIDING SCALE (NOVOLOG) 1 VIAL SQ SCH ×5 (06:13→21:59)
[2019-02-17] MEDS: HYDROmorphone *PCA* 10MG/50ML DISP.SYRIN PCA SCH ×3 (07:45→15:08)
[2019-02-17] MEDS: LIDOCAINE 5% TOPICAL PATCH TP SCH (09:58)
[2019-02-17] MEDS: SENNOSIDES 8.6MG TABLET (FP) PO SCH ×2 (09:59→21:40)
[2019-02-17] MEDS: PANTOPRAZOLE 40 MG TABLET (FP) PO SCH (09:59)
[2019-02-17] MEDS: METHADONE HCL 5 MG TABLET PO SCH ×2 (09:59→21:40)
[2019-02-17] MEDS: FERROUS GLUCONATE 324 MG TAB (FP) PO SCH (09:59)
[2019-02-17] MEDS: DEXAMETHASONE 4 MG TABLET (FP) PO SCH ×2 (09:59→21:40)
[2019-02-17] MEDS: FLUTICASONE/SALMETEROL 100 MCG/50 MCG DISKUS IH SCH ×2 (10:08→21:55)
[2019-02-17] MEDS: ENOXAPARIN NA (PORCINE) 40 MG/0.4 ML DISP.SYRIN SQ SCH (10:09)
[2019-02-17 13:45] LABS: BASO % 0.4 % (0-2.0); HEMOGLOBIN 9.1 GM/dL (11.7-16.9); LYMPH % 1.3 % (8-40); MCH 28.4 pg (25.7-33.7); MCHC 31.5 g/dl (32.0-35.9); MEAN CELL VOLUME 90.1 fl (80-96); MONO % 0.3 % (3.8-10.2); PLATELET COUNT 74 K/MM3 (134-434); RBC 3.22 M/mm3 (4.00-5.60); RDW 17.5 % (11.9-15.9); WHITE BLOOD COUNT 6.1 K/mm3 (4.0-10.0)
[2019-02-17 14:13] LABS: BILIRUBIN,TOTAL 0.8 mg/dL (0.2-1); BLOOD UREA NITROGEN 18.2 mg/dL (7-18); CREATININE 0.6 mg/dL (0.55-1.3); MAGNESIUM 1.8 mg/dL (1.8-2.4); PHOSPHOROUS 2.3 mg/dL (2.5-4.9); POTASSIUM 4.3 mmol/L (3.5-5.1); TOT PROT 5.6 g/dl (6.4-8.2)
[2019-02-17] MEDS: LORazepam 0.5 MG TABLET PO PRN ×2 (14:24→21:41)
--- NOTE | 2019-02-17 14:38 | PN ---
Progress Note (short form) - Note Progress Note: PULMONARY Chart reviewed SPO2 r/a 95% VSS/afebrile Gen: restless Heart: RRR Lung: decreased breath sounds at the bases Abd: soft, nontender Ext: + edema notes reviewed A/P NSCLC - Squamous Polysubstance Abuse Methadone Maintenance h/o SBO Anemia Thrombocytopenia - inhaled bronchodilators - O2 to keep Spo2 >90% - pain control - agree with palliative placement Heather MAR MD
--- NOTE | 2019-02-17 14:40 | PN ---
Teaching Attending Note Name of Resident: Sherry Kapadia ATTENDING PHYSICIAN STATEMENT I saw and evaluated the patient. I reviewed the resident's note and discussed the case with the resident. I agree with the resident's findings and plan as documented with exceptions below. SUBJECTIVE: Patient seen and examined. denies pain, anxious, but limited participation otherwise. OBJECTIVE: Vital Signs Period Temp Pulse Resp BP Sys/Seo Pulse Ox Last 24 Hr 97.6 F-99.2 F 104-131 18-22 111-122/59-89 94-95 Intake & Output 02/14/19 02/15/19 02/16/19 02/17/19 23:59 23:59 23:59 23:59 Intake Total 200 350 0 200 Balance 200 350 0 200 General: sitting in bed leaning forward, tachypneic Chest: decreased air entry all over Abdomen: soft, NT Extremities: mittens, no edema ASSESSMENT AND PLAN: 68 year old man with a history of squamous cell lung cancer, bowel resection secondary to obstruction, tobacco use, alcohol use, chronic pain syndrome, opioid dependence who was sent to the ED from [place] for evaluation of hypotension. Acute metabolic encephalopathy-resolved Hypotension-resolved Depression and anxiety with suicidal ideation COPD Anemia of Chronic Disease SC Lung CA Chronic Pain Syndrome Plan: Dilaudid HEMSTITCHER, stop breakthrough, patient no using. Standing low dose IV dilaudid q6h Methadone taper. lidocaine patch. Will change to fentanyl patch if fails to improve Psych/pain management input noted. Seroquel, change to 25 mg QAm and 50 mg hs. 1:1 constant observation [id number] lovenox Dispo plan for [facility] when agitation improved. Discussed with nursing.
[2019-02-17 15:05] LABS: ANISOCYTOSIS 1+; MACROCYTOSIS 0; OVALOCYTE 1+; PLATELET ESTIMATE DECREASED; TEAR DROP CELLS 1+
--- NOTE | 2019-02-17 16:42 | PN ---
Physical Exam: SUBJECTIVE: Patient seen and examined. He is sitting in bed. He denies pain at this time. Nursing staff reports agitation overnight. Pt was given melatonin without relief. OBJECTIVE: Vital Signs Period Temp Pulse Resp BP Sys/Seo Pulse Ox Last 24 Hr 97.6 F-98.4 F 104-119 18-22 111-123/59-89 94 GENERAL: Resting in bed, not in distress HEAD: Normal with no signs of trauma. EYES: PERRL, extraocular movements intact ENT: Ears normal, nares patent, moist mucous membranes. NECK: Trachea midline LUNGS: Breath sounds equal, clear to auscultation bilaterally, no wheezes HEART: Regular rate and rhythm, without murmur ABDOMEN: Soft, nontender, nondistended, normoactive bowel sounds EXTREMITIES: 2+ pulses, warm, well-perfused, no edema, restraint mittens on hands NEUROLOGICAL: Slow speech. PSYCH: Normal mood, normal affect. SKIN: Warm, dry, normal turgor, dried blood on right 3rd finger Laboratory Results - last 24 hr 02/16/19 02/16/19 02/16/19 17:12 20:53 23:15 WBC RBC Hgb Hct MCV MCH MCHC RDW Plt Count MPV Absolute Neuts (auto) Neutrophils % Neutrophils % (Manual) Band Neutrophils % Lymphocytes % Lymphocytes % (Manual) Monocytes % Monocytes % (Manual) Eosinophils % Eosinophils % (Manual) Basophils % Basophils % (Manual) Myelocytes % (Man) Promyelocytes % (Man) Blast Cells % (Manual) Nucleated RBC % Metamyelocytes Hypochromia Platelet Estimate Polychromasia Poikilocytosis Anisocytosis Microcytosis Macrocytosis Tear Drop Cells Ovalocytes Sodium Potassium Chloride Carbon Dioxide Anion Gap BUN Creatinine Est GFR (CKD-EPI)AfAm Est GFR (CKD-EPI)NonAf POC Glucometer 335 489 284 Random Glucose Calcium Phosphorus Magnesium Total Bilirubin AST ALT Alkaline Phosphatase Total Protein Albumin 02/17/19 02/17/19 02/17/19 06:11 12:03 13:30 WBC 6.1 RBC 3.22 L Hgb 9.1 L Hct 29.0 L MCV 90.1 MCH 28.4 MCHC 31.5 L RDW 17.5 H Plt Count 74 L MPV 8.0 Absolute Neuts (auto) 5.9 Neutrophils % 98.0 H Neutrophils % (Manual) 69.0 D Band Neutrophils % 25.0 Lymphocytes % 1.3 L Lymphocytes % (Manual) 1.0 L D Monocytes % 0.3 L D Monocytes % (Manual) 0 L D Eosinophils % 0.0 Eosinophils % (Manual) 3.0 D Basophils % 0.4 D Basophils % (Manual) 0.0 Myelocytes % (Man) 0 Promyelocytes % (Man) 0 Blast Cells % (Manual) 0 Nucleated RBC % 0 Metamyelocytes 1 D Hypochromia 1+ Platelet Estimate Decreased Polychromasia 2+ Poikilocytosis 1+ Anisocytosis 1+ Microcytosis 1+ Macrocytosis 0 Tear Drop Cells 1+ Ovalocytes 1+ Sodium Potassium Chloride Carbon Dioxide Anion Gap BUN Creatinine Est GFR (CKD-EPI)AfAm Est GFR (CKD-EPI)NonAf POC Glucometer 342 142 Random Glucose Calcium Phosphorus Magnesium Total Bilirubin AST ALT Alkaline Phosphatase Total Protein Albumin 02/17/19 13:30 WBC RBC Hgb Hct MCV MCH MCHC RDW Plt Count MPV Absolute Neuts (auto) Neutrophils % Neutrophils % (Manual) Band Neutrophils % Lymphocytes % Lymphocytes % (Manual) Monocytes % Monocytes % (Manual) Eosinophils % Eosinophils % (Manual) Basophils % Basophils % (Manual) Myelocytes % (Man) Promyelocytes % (Man) Blast Cells % (Manual) Nucleated RBC % Metamyelocytes Hypochromia Platelet Estimate Polychromasia Poikilocytosis Anisocytosis Microcytosis Macrocytosis Tear Drop Cells Ovalocytes Sodium 135 L Potassium 4.3 Chloride 100 Carbon Dioxide 30 Anion Gap 5 L BUN 18.2 H Creatinine 0.6 Est GFR (CKD-EPI)AfAm 119.74 Est GFR (CKD-EPI)NonAf 103.31 POC Glucometer Random Glucose 179 H Calcium 9.0 Phosphorus 2.3 L Magnesium 1.8 Total Bilirubin 0.8 AST 28 ALT 40 Alkaline Phosphatase 160 H Total Protein 5.6 L Albumin 2.0 L Active Medications Generic Name Dose Route Start Last Admin Trade Name Freq PRN Reason Stop Dose Admin Dexamethasone 4 mg 02/16/19 22:00 02/17/19 09:59 Decadron - PO 4 mg BID SHIRA Administration Docusate Sodium 100 mg 02/08/19 22:00 02/17/19 14:23 Colace - PO 100 mg TID SHIRA Administration Enoxaparin Sodium 40 mg 02/17/19 10:00 02/17/19 10:09 Lovenox - SQ 40 mg DAILY SHIRA Administration Ferrous Gluconate 324 mg 02/09/19 10:00 02/17/19 09:59 Fergon - PO Not Given DAILY SHIRA Gabapentin 100 mg 02/14/19 22:00 02/17/19 14:23 Neurontin - PO 100 mg TID SHIRA Administration Guaifenesin 10 ml 02/11/19 16:47 02/13/19 04:41 Robitussin - PO 10 ml Q8H PRN Administration COUGH Hydromorphone HCl 10 mg 02/16/19 14:38 02/17/19 15:08 Hydromorphone 10 Mg/50 Ml-Ns ADMISSIONS COORDINATOR 02/19/19 16:45 10 mg ADMISSIONS COORDINATOR SHIRA Administration Protocol Hydromorphone HCl 0.75 mg 02/16/19 18:00 02/17/19 13:14 Dilaudid Vial - IVPB Not Given Q6H SHIRA Insulin Aspart 1 vial 02/14/19 16:30 02/17/19 12:04 Novolog Vial Sliding Scale - SQ Not Given ACHS SHIRA Protocol Lidocaine 1 patch 02/11/19 10:00 02/17/19 09:58 Lidoderm Patch - TP 1 patch DAILY SHIRA Administration Lorazepam 0.5 mg 02/11/19 10:58 02/17/19 14:24 Ativan - PO 0.5 mg TID PRN Administration ANXIETY Methadone HCl 5 mg 02/16/19 22:00 02/17/19 09:59 Dolophine - PO 5 mg BID SHIRA Administration Miscellaneous 1 each 02/11/19 22:00 02/16/19 22:54 Lidoderm Patch Removal MC 1 each DAILY@2200 SHIRA Administration Pantoprazole Sodium 40 mg 02/09/19 10:00 02/17/19 09:59 Protonix - PO 40 mg DAILY SHIRA Administration Etain Balance 1 each 02/10/19 22:00 02/16/19 21:05 Capsules Pt Own Med PO 1 each (Pyxis) HS SHIRA Administration Quetiapine Fumarate 50 mg 02/08/19 22:00 02/16/19 21:03 Seroquel - PO 50 mg HS SHIRA Administration Quetiapine Fumarate 25 mg 02/18/19 10:00 Seroquel - PO DAILY SHIRA Fluticasone/Salmeterol 1 puff 02/08/19 22:00 02/17/19 10:08 Advair 100mcg/50mcg - IH Not Given BID SHIRA Senna 1 tab 02/13/19 11:30 02/17/19 09:59 Senna - PO Not Given BID SHIRA ASSESSMENT/PLAN: Mr. Gonzalez is a 68 y/o male with a history of RUL squamous cell carcinoma stage 4 , anemia, BPH, COPD, and GERD who presents for AMS and hypotension. He was recently admitted by Dr. Aviles after presenting to his clinic with anemia. Pt was transfused PRBCs and Hb improved. Pain management and agitation were difficult to control and pt was eventually stabilized and sent to SNF. Pt returned with AMS and hypotension. Pressure has stabilized but pain control continues to be difficult. #chronic pain 2/2 stage 4 squamous cell carcinoma Pt is intermittently restless. MRI from December- no metastasis to brain. Pt refusing CT. ADMISSIONS COORDINATOR pump discontinued as pt was unable to use. -decadron 4mg PO BID -Seroquel 25mg daily -Seroquel 50mg QHS -ativan 0.5mg TID PRN -methadone 5mg BID -gabapentin 100mg TID -Dilaudid 0.75mg sub Q Q6H -lidoderm patch -pt's home medical marijuana -palliative care-[facility] submitted #hyperglycemia likely 2/2 steroid use 200s-300s -BGM -SSI #transaminitis Alk phos 160 -monitor #hypokalemia, resolved -repleted -monitor #hypotension, resolved Likely 2/2 to pain medication. Afebrile. No leukocytosis. Sepsis workup negative. - hold antihypertensive medication #agitation Reported to have suicidal thoughts at admission. Not present now. He is restless and has pulled out IVs multiple times. -1:1 discontinued -direct supervision -hand mittens as needed -psych following #anemia Hb 9.1. -iron supplementation #GERD -continue pantoprazole #COPD -continue Advair 1 puff BID #constipation -colace and senna DVT ppx Lovenox 40 sq daily FEN PO fluids regular diet monitor BMP Dispo: monitor on med surg, potential d/c to [facility] when bed opens and agitation improves FULL CODE No legal healthcare proxy. Visit type - Emergency Visit Emergency Visit: Yes ED Registration Date: 02/08/19 Care time: The patient presented to the Emergency Department on the above date and was hospitalized for further evaluation of their emergent condition. - New Patient This patient is new to me today: No - Critical Care Critical Care patient: No - Discharge Referral Referred to [facility] No ATTENDING PHYSICIAN STATEMENT I saw and evaluated the patient. I reviewed the resident's note and discussed the case with the resident. I agree with the resident's findings and plan as documented. SUBJECTIVE: OBJECTIVE: ASSESSMENT AND PLAN:
--- NOTE | 2019-02-17 17:19 | PN ---
Progress Note (short form) - Note Progress Note: Patient seen and examined pain seems better controlled on increased dose of HEALTH CLAIMS EXAMINER dilaudid Last Vital Signs Temp Pulse Resp BP Pulse Ox 97.7 F 112 H 22 H 123/71 94 L 02/17/19 09:00 02/17/19 15:08 02/17/19 15:08 02/17/19 15:08 02/16/19 21:00 Sitting - x legged in bed Cor: RSR, No murmurs, No gallops Lungs: Clear to P&A Abd: Soft, Normal bowel sounds, No organomegaly CBC, BMP 02/17/19 13:30 02/17/19 13:30 Current Medications Generic Name Dose Route Start Last Admin Trade Name Freq PRN Reason Stop Dose Admin Dexamethasone 4 mg 02/16/19 22:00 02/17/19 09:59 Decadron - PO 4 mg BID SHIRA Administration Docusate Sodium 100 mg 02/08/19 22:00 02/17/19 14:23 Colace - PO 100 mg TID SHIRA Administration Enoxaparin Sodium 40 mg 02/17/19 10:00 02/17/19 10:09 Lovenox - SQ 40 mg DAILY SHIRA Administration Ferrous Gluconate 324 mg 02/09/19 10:00 02/17/19 09:59 Fergon - PO Not Given DAILY SHIRA Gabapentin 100 mg 02/14/19 22:00 02/17/19 14:23 Neurontin - PO 100 mg TID SHIRA Administration Guaifenesin 10 ml 02/11/19 16:47 02/13/19 04:41 Robitussin - PO 10 ml Q8H PRN Administration COUGH Hydromorphone HCl 10 mg 02/16/19 14:38 02/17/19 15:08 Hydromorphone 10 Mg/50 Ml-Ns HEALTH CLAIMS EXAMINER 02/19/19 16:45 10 mg HEALTH CLAIMS EXAMINER SHIRA Administration Protocol Hydromorphone HCl 0.75 mg 02/16/19 18:00 02/17/19 13:14 Dilaudid Vial - IVPB Not Given Q6H SHIRA Insulin Aspart 1 vial 02/14/19 16:30 02/17/19 12:04 Novolog Vial Sliding Scale - SQ Not Given ACHS SHIRA Protocol Lidocaine 1 patch 02/11/19 10:00 02/17/19 09:58 Lidoderm Patch - TP 1 patch DAILY SHIRA Administration Lorazepam 0.5 mg 02/11/19 10:58 02/17/19 14:24 Ativan - PO 0.5 mg TID PRN Administration ANXIETY Methadone HCl 5 mg 02/16/19 22:00 02/17/19 09:59 Dolophine - PO 5 mg BID SHIRA Administration Miscellaneous 1 each 02/11/19 22:00 02/16/19 22:54 Lidoderm Patch Removal MC 1 each DAILY@2200 SHIRA Administration Pantoprazole Sodium 40 mg 02/09/19 10:00 02/17/19 09:59 Protonix - PO 40 mg DAILY SHIRA Administration Etain Balance 1 each 02/10/19 22:00 02/16/19 21:05 Capsules Pt Own Med PO 1 each (Pyxis) HS SHIRA Administration Quetiapine Fumarate 50 mg 02/08/19 22:00 02/16/19 21:03 Seroquel - PO 50 mg HS SHIRA Administration Quetiapine Fumarate 25 mg 02/18/19 10:00 Seroquel - PO DAILY SHIRA Fluticasone/Salmeterol 1 puff 02/08/19 22:00 02/17/19 10:08 Advair 100mcg/50mcg - IH Not Given BID SHIRA Senna 1 tab 02/13/19 11:30 02/17/19 09:59 Senna - PO Not Given BID SHIRA Impression Lung ca-SCC S/P RT/chemotherapy Pain management If agitation improves will be accepted to [facility].
--- NOTE | 2019-02-17 18:36 | PN ---
Progress Note (short form) - Note Progress Note: Patient seen and examined. family at bedside. Chart reviewed. Currently does not seem to be in pain, The primary complaint is agitation. 1. Continue Dilaudid and titrate accordingly to comfort 2. For his agitation, may need increased ativan dosing- would defer to palliative care team. 3. awaiting transfer to [facility]
[2019-02-17] MEDS ORDERED: PT OWN MED DRAWER 7, Y5N ONE (21:33)
[2019-02-17] MEDS: QUEtiapine FUMARATE 50 MG TABLET PO SCH (21:40)
[2019-02-17] MEDS: LIDOCAINE PATCH REMOVAL MC SCH (21:59)
[2019-02-17] MEDS: [UNRECOGNIZED DRUG - OTHER] PO SCH (23:30)
[2019-02-18] MEDS: HYDROmorphone HCl 2 MG/ML VIAL IVPB SCH ×4 (00:52→18:35)
[2019-02-18] MEDS: DOCUSATE SODIUM 100 MG CAPSULE (FP) PO SCH ×3 (06:10→22:43)
[2019-02-18] MEDS: GABAPENTIN 100 MG CAPSULE (FP) PO SCH ×3 (06:10→22:44)
[2019-02-18] MEDS: INSULIN SLIDING SCALE (NOVOLOG) 1 VIAL SQ SCH ×4 (06:21→22:44)
[2019-02-18] MEDS ORDERED: QUEtiapine FUMARATE 25 MG TABLET (FP) PO SCH (10:00)
[2019-02-18] MEDS ORDERED: LORazepam 2 MG/ML SDV VIAL IVPB ONE (10:30)
[2019-02-18] MEDS: FLUTICASONE/SALMETEROL 100 MCG/50 MCG DISKUS IH SCH ×2 (11:50→22:42)
[2019-02-18] MEDS: METHADONE HCL 5 MG TABLET PO SCH ×2 (11:50→22:43)
[2019-02-18] MEDS: FERROUS GLUCONATE 324 MG TAB (FP) PO SCH (11:50)
[2019-02-18] MEDS: DEXAMETHASONE 4 MG TABLET (FP) PO SCH ×2 (11:50→22:46)
[2019-02-18] MEDS: PANTOPRAZOLE 40 MG TABLET (FP) PO SCH (11:51)
[2019-02-18] MEDS: SENNOSIDES 8.6MG TABLET (FP) PO SCH ×2 (11:51→22:45)
[2019-02-18] MEDS: LIDOCAINE 5% TOPICAL PATCH TP SCH (11:51)
[2019-02-18] MEDS: ENOXAPARIN NA (PORCINE) 40 MG/0.4 ML DISP.SYRIN SQ SCH (11:53)
--- NOTE | 2019-02-18 12:04 | PN ---
Progress Note (short form) - Note Progress Note: Lethargic on Dilaudid [facility]. No acute events. Intake & Output 02/15/19 02/16/19 02/17/19 02/18/19 23:59 23:59 23:59 23:59 Intake Total 350 0 300 200 Balance 350 0 300 200 Last Vital Signs Temp Pulse Resp BP Pulse Ox 97.8 F 123 H 18 141/69 94 L 02/18/19 05:59 02/18/19 05:59 02/18/19 05:59 02/18/19 05:59 02/17/19 21:00 Active Medications Dexamethasone (Decadron -) 4 mg PO BID [facility] Last Admin: 02/18/19 11:50 Dose: Not Given Docusate Sodium (Colace -) 100 mg PO TID [facility] Last Admin: 02/18/19 06:10 Dose: 100 mg Enoxaparin Sodium (Lovenox -) 40 mg SQ DAILY [facility] Last Admin: 02/18/19 11:53 Dose: 40 mg Ferrous Gluconate (Fergon -) 324 mg PO DAILY [facility] Last Admin: 02/18/19 11:50 Dose: Not Given Gabapentin (Neurontin -) 100 mg PO TID [facility] Last Admin: 02/18/19 06:10 Dose: 100 mg Guaifenesin (Robitussin -) 10 ml PO Q8H PRN PRN Reason: COUGH Last Admin: 02/13/19 04:41 Dose: 10 ml Hydromorphone HCl (Hydromorphone 10 Mg/50 Ml-Ns) 10 mg [facility]; Protocol Stop: 02/19/19 16:45 Last Admin: 02/17/19 15:08 Dose: 10 mg Hydromorphone HCl (Dilaudid Vial -) 0.75 mg IVPB Q6H [facility] Last Admin: 02/18/19 06:11 Dose: 0.75 mg Insulin Aspart (Novolog Vial Sliding Scale -) 1 vial SQ ACHS [facility]; Protocol Last Admin: 02/18/19 06:21 Dose: 6 units Lidocaine (Lidoderm Patch -) 1 patch TP DAILY [facility] Last Admin: 02/18/19 11:51 Dose: Not Given Lorazepam (Ativan -) 0.5 mg PO TID [facility] Methadone HCl (Dolophine -) 5 mg PO BID [facility] Last Admin: 02/18/19 11:50 Dose: Not Given Miscellaneous (Lidoderm Patch Removal) 1 each MC DAILY@2200 [facility] Last Admin: 02/17/19 21:59 Dose: 1 each Pantoprazole Sodium (Protonix -) 40 mg PO DAILY [facility] Last Admin: 02/18/19 11:51 Dose: Not Given Etain Balance Capsules Pt Own Med (Pyxis) 1 each PO HS [facility] Last Admin: 02/17/19 23:30 Dose: Not Given Quetiapine Fumarate (Seroquel -) 50 mg PO HS [facility] Last Admin: 02/17/19 21:40 Dose: 50 mg Quetiapine Fumarate (Seroquel -) 25 mg PO DAILY [facility] Last Admin: 02/18/19 11:52 Dose: Not Given Fluticasone/Salmeterol (Advair 100mcg/50mcg -) 1 puff IH BID [facility] Last Admin: 02/18/19 11:50 Dose: Not Given Senna (Senna -) 1 tab PO BID [facility] Last Admin: 02/18/19 11:51 Dose: Not Given Laboratory Results - last 24 hr 02/08/19 02/08/19 02/08/19 12:10 12:10 12:10 WBC 10.7 H RBC 2.76 L Hgb 8.1 L Hct 24.9 L MCV 90.4 MCH 29.2 MCHC 32.4 RDW 17.4 H Plt Count 97 L MPV 7.9 D Absolute Neuts (auto) 10.4 H Neutrophils % 96.4 H Neutrophils % (Manual) 84.0 H Band Neutrophils % 11.0 Lymphocytes % 0.6 L Lymphocytes % (Manual) 2.0 L D Monocytes % 2.8 L Monocytes % (Manual) 3 L Eosinophils % 0.1 D Eosinophils % (Manual) 0.0 Basophils % 0.1 D Basophils % (Manual) 0.0 Myelocytes % (Man) 0 Promyelocytes % (Man) 0 Blast Cells % (Manual) 0 Nucleated RBC % 0 Metamyelocytes 0 Hypochromia 1+ Platelet Estimate Decreased Polychromasia 0 Poikilocytosis 0 Anisocytosis 1+ Microcytosis 0 Macrocytosis 0 Target Cells Tear Drop Cells Ovalocytes 1+ Schistocytes PT with INR 16.30 H INR 1.38 H PTT (Actin FS) 29.6 Sodium 137 Potassium 3.6 Chloride 100 Carbon Dioxide 31 Anion Gap 6 L BUN 14.4 Creatinine 0.5 L Est GFR (CKD-EPI)AfAm 129.05 Est GFR (CKD-EPI)NonAf 111.35 POC Glucometer Random Glucose 172 H Lactic Acid Calcium 8.3 L Phosphorus Magnesium Total Bilirubin AST ALT Alkaline Phosphatase Creatine Kinase 72 Troponin I < 0.02 B-Natriuretic Peptide 890.4 H Total Protein Albumin Urine Color Urine Appearance Urine pH Ur Specific [place] Urine Protein Urine Glucose (UA) Urine Ketones Urine Blood Urine Nitrite Urine Bilirubin Urine Urobilinogen Ur Leukocyte Esterase 02/08/19 02/08/19 02/09/19 19:45 22:30 06:05 WBC 8.0 RBC 2.92 L Hgb 8.6 L Hct 26.5 L MCV 90.8 MCH 29.4 MCHC 32.4 RDW 17.2 H Plt Count 80 L MPV 7.4 L Absolute Neuts (auto) 7.5 Neutrophils % 94.1 H Neutrophils % (Manual) 88.1 H Band Neutrophils % 5.9 Lymphocytes % 2.8 L D Lymphocytes % (Manual) 2.0 L Monocytes % 2.7 L Monocytes % (Manual) 4 Eosinophils % 0.0 D Eosinophils % (Manual) 0.0 Basophils % 0.4 D Basophils % (Manual) 0.0 Myelocytes % (Man) 0 Promyelocytes % (Man) 0 Blast Cells % (Manual) 0 Nucleated RBC % 0 Metamyelocytes 0 Hypochromia 0 Platelet Estimate Decreased Polychromasia 0 Poikilocytosis 0 Anisocytosis 0 Microcytosis 0 Macrocytosis 0 Target Cells Tear Drop Cells Ovalocytes Schistocytes PT with INR INR PTT (Actin FS) Sodium Potassium Chloride Carbon Dioxide Anion Gap BUN Creatinine Est GFR (CKD-EPI)AfAm Est GFR (CKD-EPI)NonAf POC Glucometer Random Glucose Lactic Acid 1.3 Calcium Phosphorus Magnesium Total Bilirubin AST ALT Alkaline Phosphatase Creatine Kinase Troponin I B-Natriuretic Peptide Total Protein Albumin Urine Color Yellow Urine Appearance Clear Urine pH 6.5 Ur Specific [place] 1.025 Urine Protein Negative Urine Glucose (UA) Trace Urine Ketones Trace H Urine Blood Negative Urine Nitrite Negative Urine Bilirubin Negative Urine Urobilinogen 2.0 Ur Leukocyte Esterase Negative 02/09/19 02/10/19 02/10/19 06:05 06:10 06:10 WBC 8.2 RBC 2.58 L Hgb 7.5 L Hct 23.7 L MCV 91.9 MCH 29.1 MCHC 31.7 L RDW 17.5 H Plt Count 69 L MPV 7.8 Absolute Neuts (auto) 7.8 Neutrophils % 94.7 H Neutrophils % (Manual) 93.9 H Band Neutrophils % 0.0 Lymphocytes % 2.5 L Lymphocytes % (Manual) 4.1 L D Monocytes % 2.8 L Monocytes % (Manual) 2 L Eosinophils % 0.0 Eosinophils % (Manual) 0.0 Basophils % 0.0 Basophils % (Manual) 0.0 Myelocytes % (Man) 0 Promyelocytes % (Man) 0 Blast Cells % (Manual) 0 Nucleated RBC % 0 Metamyelocytes 0 Hypochromia 0 Platelet Estimate Decreased Polychromasia 0 Poikilocytosis 0 Anisocytosis 0 Microcytosis 0 Macrocytosis 0 Target Cells Tear Drop Cells Ovalocytes Schistocytes PT with INR INR PTT (Actin FS) Sodium 139 138 Potassium 3.3 L 3.4 L Chloride 102 101 Carbon Dioxide 31 28 Anion Gap 7 L 9 BUN 11.7 10.1 Creatinine 0.4 L 0.4 L Est GFR (CKD-EPI)AfAm 141.45 141.45 Est GFR (CKD-EPI)NonAf 122.04 122.04 POC Glucometer Random Glucose 116 H 120 H Lactic Acid Calcium 8.1 L 7.8 L Phosphorus 2.2 L Magnesium 2.0 1.9 Total Bilirubin 0.6 AST 24 ALT 39 Alkaline Phosphatase 159 H Creatine Kinase Troponin I B-Natriuretic Peptide Total Protein 5.6 L Albumin 1.9 L Urine Color Urine Appearance Urine pH Ur Specific [place] Urine Protein Urine Glucose (UA) Urine Ketones Urine Blood Urine Nitrite Urine Bilirubin Urine Urobilinogen Ur Leukocyte Esterase 02/10/19 02/11/19 02/11/19 12:57 06:30 06:30 WBC 8.0 7.1 RBC 2.77 L 2.98 L Hgb 8.2 L 8.9 L Hct 25.4 L 27.5 L MCV 91.5 92.3 MCH 29.5 29.9 MCHC 32.3 32.4 RDW 17.7 H 18.1 H Plt Count 75 L 63 L MPV 8.7 D 8.2 Absolute Neuts (auto) 7.6 6.8 Neutrophils % 94.1 H 96.2 H Neutrophils % (Manual) 91.1 H 94.0 H Band Neutrophils % 6.9 2.0 Lymphocytes % 2.3 L 1.4 L D Lymphocytes % (Manual) 2.0 L D 2.0 L Monocytes % 3.4 L 2.4 L Monocytes % (Manual) 0 L D 2 L D Eosinophils % 0.0 0.0 Eosinophils % (Manual) 0.0 0.0 Basophils % 0.2 D 0.0 Basophils % (Manual) 0.0 0.0 Myelocytes % (Man) 0 0 Promyelocytes % (Man) 0 0 Blast Cells % (Manual) 0 0 Nucleated RBC % 0 0 Metamyelocytes 0 0 Hypochromia 1+ 0 Platelet Estimate Decreased Decreased Polychromasia 0 0 Poikilocytosis 1+ 0 Anisocytosis 2+ 1+ Microcytosis 2+ 0 Macrocytosis 0 1+ Target Cells 1+ 0 Tear Drop Cells Ovalocytes 1+ Schistocytes 1+ PT with INR INR PTT (Actin FS) Sodium 138 Potassium 4.1 Chloride 102 Carbon Dioxide 28 Anion Gap 8 BUN 12.7 Creatinine 0.5 L Est GFR (CKD-EPI)AfAm 129.05 Est GFR (CKD-EPI)NonAf 111.35 POC Glucometer Random Glucose 258 H Lactic Acid Calcium 8.3 L Phosphorus Magnesium Total Bilirubin AST ALT Alkaline Phosphatase Creatine Kinase Troponin I B-Natriuretic Peptide Total Protein Albumin Urine Color Urine Appearance Urine pH Ur Specific [place] Urine Protein Urine Glucose (UA) Urine Ketones Urine Blood Urine Nitrite Urine Bilirubin Urine Urobilinogen Ur Leukocyte Esterase 02/11/19 02/11/19 02/12/19 11:35 18:40 05:45 WBC 6.8 RBC 3.30 L Hgb 9.6 L Hct 30.6 L MCV 92.7 MCH 29.1 MCHC 31.3 L RDW 18.0 H Plt Count 66 L MPV 7.7 Absolute Neuts (auto) Neutrophils % Neutrophils % (Manual) Band Neutrophils % Lymphocytes % Lymphocytes % (Manual) Monocytes % Monocytes % (Manual) Eosinophils % Eosinophils % (Manual) Basophils % Basophils % (Manual) Myelocytes % (Man) Promyelocytes % (Man) Blast Cells % (Manual) Nucleated RBC % Metamyelocytes Hypochromia Platelet Estimate Polychromasia Poikilocytosis Anisocytosis Microcytosis Macrocytosis Target Cells Tear Drop Cells Ovalocytes Schistocytes PT with INR INR PTT (Actin FS) Sodium Potassium Chloride Carbon Dioxide Anion Gap BUN Creatinine Est GFR (CKD-EPI)AfAm Est GFR (CKD-EPI)NonAf POC Glucometer 286 201 Random Glucose Lactic Acid Calcium Phosphorus Magnesium Total Bilirubin AST ALT Alkaline Phosphatase Creatine Kinase Troponin I B-Natriuretic Peptide Total Protein Albumin Urine Color Urine Appearance Urine pH Ur Specific [place] Urine Protein Urine Glucose (UA) Urine Ketones Urine Blood Urine Nitrite Urine Bilirubin Urine Urobilinogen Ur Leukocyte Esterase 02/12/19 02/13/19 02/13/19 16:42 06:26 16:48 WBC RBC Hgb Hct MCV MCH MCHC RDW Plt Count MPV Absolute Neuts (auto) Neutrophils % Neutrophils % (Manual) Band Neutrophils % Lymphocytes % Lymphocytes % (Manual) Monocytes % Monocytes % (Manual) Eosinophils % Eosinophils % (Manual) Basophils % Basophils % (Manual) Myelocytes % (Man) Promyelocytes % (Man) Blast Cells % (Manual) Nucleated RBC % Metamyelocytes Hypochromia Platelet Estimate Polychromasia Poikilocytosis Anisocytosis Microcytosis Macrocytosis Target Cells Tear Drop Cells Ovalocytes Schistocytes PT with INR INR PTT (Actin FS) Sodium Potassium Chloride Carbon Dioxide Anion Gap BUN Creatinine Est GFR (CKD-EPI)AfAm Est GFR (CKD-EPI)NonAf POC Glucometer 311 307 326 Random Glucose Lactic Acid Calcium Phosphorus Magnesium Total Bilirubin AST ALT Alkaline Phosphatase Creatine Kinase Troponin I B-Natriuretic Peptide Total Protein Albumin Urine Color Urine Appearance Urine pH Ur Specific [place] Urine Protein Urine Glucose (UA) Urine Ketones Urine Blood Urine Nitrite Urine Bilirubin Urine Urobilinogen Ur Leukocyte Esterase 02/17/19 02/17/19 02/17/19 12:03 13:30 13:30 WBC 6.1 RBC 3.22 L Hgb 9.1 L Hct 29.0 L MCV 90.1 MCH 28.4 MCHC 31.5 L RDW 17.5 H Plt Count 74 L MPV 8.0 Absolute Neuts (auto) 5.9 Neutrophils % 98.0 H Neutrophils % (Manual) 69.0 D Band Neutrophils % 25.0 Lymphocytes % 1.3 L Lymphocytes % (Manual) 1.0 L D Monocytes % 0.3 L D Monocytes % (Manual) 0 L D Eosinophils % 0.0 Eosinophils % (Manual) 3.0 D Basophils % 0.4 D Basophils % (Manual) 0.0 Myelocytes % (Man) 0 Promyelocytes % (Man) 0 Blast Cells % (Manual) 0 Nucleated RBC % 0 Metamyelocytes 1 D Hypochromia 1+ Platelet Estimate Decreased Polychromasia 2+ Poikilocytosis 1+ Anisocytosis 1+ Microcytosis 1+ Macrocytosis 0 Target Cells Tear Drop Cells 1+ Ovalocytes 1+ Schistocytes PT with INR INR PTT (Actin FS) Sodium 135 L Potassium 4.3 Chloride 100 Carbon Dioxide 30 Anion Gap 5 L BUN 18.2 H Creatinine 0.6 Est GFR (CKD-EPI)AfAm 119.74 Est GFR (CKD-EPI)NonAf 103.31 POC Glucometer 142 Random Glucose 179 H Lactic Acid Calcium 9.0 Phosphorus 2.3 L Magnesium 1.8 Total Bilirubin 0.8 AST 28 ALT 40 Alkaline Phosphatase 160 H Creatine Kinase Troponin I B-Natriuretic Peptide Total Protein 5.6 L Albumin 2.0 L Urine Color Urine Appearance Urine pH Ur Specific [place] Urine Protein Urine Glucose (UA) Urine Ketones Urine Blood Urine Nitrite Urine Bilirubin Urine Urobilinogen Ur Leukocyte Esterase 02/17/19 02/17/19 02/18/19 17:15 21:51 06:20 WBC RBC Hgb Hct MCV MCH MCHC RDW Plt Count MPV Absolute Neuts (auto) Neutrophils % Neutrophils % (Manual) Band Neutrophils % Lymphocytes % Lymphocytes % (Manual) Monocytes % Monocytes % (Manual) Eosinophils % Eosinophils % (Manual) Basophils % Basophils % (Manual) Myelocytes % (Man) Promyelocytes % (Man) Blast Cells % (Manual) Nucleated RBC % Metamyelocytes Hypochromia Platelet Estimate Polychromasia Poikilocytosis Anisocytosis Microcytosis Macrocytosis Target Cells Tear Drop Cells Ovalocytes Schistocytes PT with INR INR PTT (Actin FS) Sodium Potassium Chloride Carbon Dioxide Anion Gap BUN Creatinine Est GFR (CKD-EPI)AfAm Est GFR (CKD-EPI)NonAf POC Glucometer 291 341 291 Random Glucose Lactic Acid Calcium Phosphorus Magnesium Total Bilirubin AST ALT Alkaline Phosphatase Creatine Kinase Troponin I B-Natriuretic Peptide Total Protein Albumin Urine Color Urine Appearance Urine pH Ur Specific [place] Urine Protein Urine Glucose (UA) Urine Ketones Urine Blood Urine Nitrite Urine Bilirubin Urine Urobilinogen Ur Leukocyte Esterase Gen: Mildly tachypneic on 100% NRBM, lethargic Heart: RRR Lung: decreased breath sounds at the bases Abd: soft, nontender Ext: + edema IMP NSCLC - Squamous Polysubstance Abuse Methadone Maintenance h/o SBO Anemia Thrombocytopenia - inhaled bronchodilators - O2 to keep Spo2 >90% - pain control - Consider focus on palliation Dr Can
--- NOTE | 2019-02-18 14:30 | PN ---
Teaching Attending Note Name of Resident: Sherry Kapadia ATTENDING PHYSICIAN STATEMENT I saw and evaluated the patient. I reviewed the resident's note and discussed the case with the resident. I agree with the resident's findings and plan as documented with exceptions below. SUBJECTIVE: Patient seen and examined. anxious, non verbal. unable to do ROS. OBJECTIVE: Vital Signs Period Temp Pulse Resp BP Sys/Seo Pulse Ox Last 24 Hr 97.6 F-98.8 F 108-123 17-22 114-148/63-80 94 Intake & Output 02/15/19 02/16/19 02/17/19 02/18/19 23:59 23:59 23:59 23:59 Intake Total 350 0 300 200 Balance 350 0 300 200 General: sitting in bed, tachypneic, anxious Chest: poor effort Abdomen:soft, scaphoid Extremities: mittens, no edema Home Medications Medication Instructions Recorded Docusate Sodium [Colace] 100 mg PO TID 01/05/19 Gabapentin 300 mg PO Q8H PRN 01/05/19 Oxycodone HCl 5 mg PO Q4H PRN 01/05/19 Pantoprazole Sodium [Protonix] 40 mg PO DAILY 01/05/19 Tamsulosin HCl 0.4 mg PO BID 01/05/19 Ferrous Gluconate [Fergon -] 324 mg PO DAILY #30 tab 01/08/19 Methadone [Dolophine -] 10 mg PO Q12H 01/08/19 Salmeterol/Fluticasone [Advair 2 puff IH Q12H PRN 01/25/19 100Mcg/50Mcg -] Metoprolol Tartrate [Lopressor -] 50 mg PO BID 30 Days #60 tablet 02/03/19 Quetiapine Fumarate [Seroquel -] 50 mg PO BID 30 Days #60 tablet 02/03/19 Active Medications Dexamethasone (Decadron -) 4 mg PO BID [facility] Last Admin: 02/18/19 11:50 Dose: Not Given Docusate Sodium (Colace -) 100 mg PO TID [facility] Last Admin: 02/18/19 06:10 Dose: 100 mg Enoxaparin Sodium (Lovenox -) 40 mg SQ DAILY [facility] Last Admin: 02/18/19 11:53 Dose: 40 mg Ferrous Gluconate (Fergon -) 324 mg PO DAILY [facility] Last Admin: 02/18/19 11:50 Dose: Not Given Gabapentin (Neurontin -) 100 mg PO TID [facility] Last Admin: 02/18/19 06:10 Dose: 100 mg Guaifenesin (Robitussin -) 10 ml PO Q8H PRN PRN Reason: COUGH Last Admin: 02/13/19 04:41 Dose: 10 ml Hydromorphone HCl (Hydromorphone 10 Mg/50 Ml-Ns) 10 mg LITHOGRAPHER HELPER LITHOGRAPHER HELPER [facility]; Protocol Stop: 02/19/19 16:45 Last Admin: 02/17/19 15:08 Dose: 10 mg Hydromorphone HCl (Dilaudid Vial -) 0.75 mg IVPB Q6H [facility] Last Admin: 02/18/19 14:06 Dose: Not Given Insulin Aspart (Novolog Vial Sliding Scale -) 1 vial SQ ACHS [facility]; Protocol Last Admin: 02/18/19 12:27 Dose: Not Given Lidocaine (Lidoderm Patch -) 1 patch TP DAILY [facility] Last Admin: 02/18/19 11:51 Dose: Not Given Lorazepam (Ativan -) 0.5 mg PO TID [facility] Methadone HCl (Dolophine -) 5 mg PO BID [facility] Last Admin: 02/18/19 11:50 Dose: Not Given Miscellaneous (Lidoderm Patch Removal) 1 each MC DAILY@2200 [facility] Last Admin: 02/17/19 21:59 Dose: 1 each Pantoprazole Sodium (Protonix -) 40 mg PO DAILY [facility] Last Admin: 02/18/19 11:51 Dose: Not Given Etain Balance Capsules Pt Own Med (Pyxis) 1 each PO [facility] Last Admin: 02/17/19 23:30 Dose: Not Given Quetiapine Fumarate (Seroquel -) 50 mg PO HS [facility] Last Admin: 02/17/19 21:40 Dose: 50 mg Quetiapine Fumarate (Seroquel -) 25 mg PO DAILY [facility] Last Admin: 02/18/19 11:52 Dose: Not Given Fluticasone/Salmeterol (Advair 100mcg/50mcg -) 1 puff IH BID [facility] Last Admin: 02/18/19 11:50 Dose: Not Given Senna (Senna -) 1 tab PO BID [facility] Last Admin: 02/18/19 11:51 Dose: Not Given Laboratory Results - last 24 hr 02/08/19 02/08/19 02/08/19 12:10 12:10 12:10 WBC 10.7 H RBC 2.76 L Hgb 8.1 L Hct 24.9 L MCV 90.4 MCH 29.2 MCHC 32.4 RDW 17.4 H Plt Count 97 L MPV 7.9 D Absolute Neuts (auto) 10.4 H Neutrophils % 96.4 H Neutrophils % (Manual) 84.0 H Band Neutrophils % 11.0 Lymphocytes % 0.6 L Lymphocytes % (Manual) 2.0 L D Monocytes % 2.8 L Monocytes % (Manual) 3 L Eosinophils % 0.1 D Eosinophils % (Manual) 0.0 Basophils % 0.1 D Basophils % (Manual) 0.0 Myelocytes % (Man) 0 Promyelocytes % (Man) 0 Blast Cells % (Manual) 0 Nucleated RBC % 0 Metamyelocytes 0 Hypochromia 1+ Platelet Estimate Decreased Polychromasia 0 Poikilocytosis 0 Anisocytosis 1+ Microcytosis 0 Macrocytosis 0 Target Cells Tear Drop Cells Ovalocytes 1+ Schistocytes PT with INR 16.30 H INR 1.38 H PTT (Actin FS) 29.6 Sodium 137 Potassium 3.6 Chloride 100 Carbon Dioxide 31 Anion Gap 6 L BUN 14.4 Creatinine 0.5 L Est GFR (CKD-EPI)AfAm 129.05 Est GFR (CKD-EPI)NonAf 111.35 POC Glucometer Random Glucose 172 H Lactic Acid Calcium 8.3 L Phosphorus Magnesium Total Bilirubin AST ALT Alkaline Phosphatase Creatine Kinase 72 Troponin I < 0.02 B-Natriuretic Peptide 890.4 H Total Protein Albumin Urine Color Urine Appearance Urine pH Ur Specific Orion Urine Protein Urine Glucose (UA) Urine Ketones Urine Blood Urine Nitrite Urine Bilirubin Urine Urobilinogen Ur Leukocyte Esterase 02/08/19 02/08/19 02/09/19 19:45 22:30 06:05 WBC 8.0 RBC 2.92 L Hgb 8.6 L Hct 26.5 L MCV 90.8 MCH 29.4 MCHC 32.4 RDW 17.2 H Plt Count 80 L MPV 7.4 L Absolute Neuts (auto) 7.5 Neutrophils % 94.1 H Neutrophils % (Manual) 88.1 H Band Neutrophils % 5.9 Lymphocytes % 2.8 L D Lymphocytes % (Manual) 2.0 L Monocytes % 2.7 L Monocytes % (Manual) 4 Eosinophils % 0.0 D Eosinophils % (Manual) 0.0 Basophils % 0.4 D Basophils % (Manual) 0.0 Myelocytes % (Man) 0 Promyelocytes % (Man) 0 Blast Cells % (Manual) 0 Nucleated RBC % 0 Metamyelocytes 0 Hypochromia 0 Platelet Estimate Decreased Polychromasia 0 Poikilocytosis 0 Anisocytosis 0 Microcytosis 0 Macrocytosis 0 Target Cells Tear Drop Cells Ovalocytes Schistocytes PT with INR INR PTT (Actin FS) Sodium Potassium Chloride Carbon Dioxide Anion Gap BUN Creatinine Est GFR (CKD-EPI)AfAm Est GFR (CKD-EPI)NonAf POC Glucometer Random Glucose Lactic Acid 1.3 Calcium Phosphorus Magnesium Total Bilirubin AST ALT Alkaline Phosphatase Creatine Kinase Troponin I B-Natriuretic Peptide Total Protein Albumin Urine Color Yellow Urine Appearance Clear Urine pH 6.5 Ur Specific Orion 1.025 Urine Protein Negative Urine Glucose (UA) Trace Urine Ketones Trace H Urine Blood Negative Urine Nitrite Negative Urine Bilirubin Negative Urine Urobilinogen 2.0 Ur Leukocyte Esterase Negative 02/09/19 02/10/19 02/10/19 06:05 06:10 06:10 WBC 8.2 RBC 2.58 L Hgb 7.5 L Hct 23.7 L MCV 91.9 MCH 29.1 MCHC 31.7 L RDW 17.5 H Plt Count 69 L MPV 7.8 Absolute Neuts (auto) 7.8 Neutrophils % 94.7 H Neutrophils % (Manual) 93.9 H Band Neutrophils % 0.0 Lymphocytes % 2.5 L Lymphocytes % (Manual) 4.1 L D Monocytes % 2.8 L Monocytes % (Manual) 2 L Eosinophils % 0.0 Eosinophils % (Manual) 0.0 Basophils % 0.0 Basophils % (Manual) 0.0 Myelocytes % (Man) 0 Promyelocytes % (Man) 0 Blast Cells % (Manual) 0 Nucleated RBC % 0 Metamyelocytes 0 Hypochromia 0 Platelet Estimate Decreased Polychromasia 0 Poikilocytosis 0 Anisocytosis 0 Microcytosis 0 Macrocytosis 0 Target Cells Tear Drop Cells Ovalocytes Schistocytes PT with INR INR PTT (Actin FS) Sodium 139 138 Potassium 3.3 L 3.4 L Chloride 102 101 Carbon Dioxide 31 28 Anion Gap 7 L 9 BUN 11.7 10.1 Creatinine 0.4 L 0.4 L Est GFR (CKD-EPI)AfAm 141.45 141.45 Est GFR (CKD-EPI)NonAf 122.04 122.04 POC Glucometer Random Glucose 116 H 120 H Lactic Acid Calcium 8.1 L 7.8 L Phosphorus 2.2 L Magnesium 2.0 1.9 Total Bilirubin 0.6 AST 24 ALT 39 Alkaline Phosphatase 159 H Creatine Kinase Troponin I B-Natriuretic Peptide Total Protein 5.6 L Albumin 1.9 L Urine Color Urine Appearance Urine pH Ur Specific Orion Urine Protein Urine Glucose (UA) Urine Ketones Urine Blood Urine Nitrite Urine Bilirubin Urine Urobilinogen Ur Leukocyte Esterase 02/10/19 02/11/19 02/11/19 12:57 06:30 06:30 WBC 8.0 7.1 RBC 2.77 L 2.98 L Hgb 8.2 L 8.9 L Hct 25.4 L 27.5 L MCV 91.5 92.3 MCH 29.5 29.9 MCHC 32.3 32.4 RDW 17.7 H 18.1 H Plt Count 75 L 63 L MPV 8.7 D 8.2 Absolute Neuts (auto) 7.6 6.8 Neutrophils % 94.1 H 96.2 H Neutrophils % (Manual) 91.1 H 94.0 H Band Neutrophils % 6.9 2.0 Lymphocytes % 2.3 L 1.4 L D Lymphocytes % (Manual) 2.0 L D 2.0 L Monocytes % 3.4 L 2.4 L Monocytes % (Manual) 0 L D 2 L D Eosinophils % 0.0 0.0 Eosinophils % (Manual) 0.0 0.0 Basophils % 0.2 D 0.0 Basophils % (Manual) 0.0 0.0 Myelocytes % (Man) 0 0 Promyelocytes % (Man) 0 0 Blast Cells % (Manual) 0 0 Nucleated RBC % 0 0 Metamyelocytes 0 0 Hypochromia 1+ 0 Platelet Estimate Decreased Decreased Polychromasia 0 0 Poikilocytosis 1+ 0 Anisocytosis 2+ 1+ Microcytosis 2+ 0 Macrocytosis 0 1+ Target Cells 1+ 0 Tear Drop Cells Ovalocytes 1+ Schistocytes 1+ PT with INR INR PTT (Actin FS) Sodium 138 Potassium 4.1 Chloride 102 Carbon Dioxide 28 Anion Gap 8 BUN 12.7 Creatinine 0.5 L Est GFR (CKD-EPI)AfAm 129.05 Est GFR (CKD-EPI)NonAf 111.35 POC Glucometer Random Glucose 258 H Lactic Acid Calcium 8.3 L Phosphorus Magnesium Total Bilirubin AST ALT Alkaline Phosphatase Creatine Kinase Troponin I B-Natriuretic Peptide Total Protein Albumin Urine Color Urine Appearance Urine pH Ur Specific Orion Urine Protein Urine Glucose (UA) Urine Ketones Urine Blood Urine Nitrite Urine Bilirubin Urine Urobilinogen Ur Leukocyte Esterase 02/11/19 02/11/19 02/12/19 11:35 18:40 05:45 WBC 6.8 RBC 3.30 L Hgb 9.6 L Hct 30.6 L MCV 92.7 MCH 29.1 MCHC 31.3 L RDW 18.0 H Plt Count 66 L MPV 7.7 Absolute Neuts (auto) Neutrophils % Neutrophils % (Manual) Band Neutrophils % Lymphocytes % Lymphocytes % (Manual) Monocytes % Monocytes % (Manual) Eosinophils % Eosinophils % (Manual) Basophils % Basophils % (Manual) Myelocytes % (Man) Promyelocytes % (Man) Blast Cells % (Manual) Nucleated RBC % Metamyelocytes Hypochromia Platelet Estimate Polychromasia Poikilocytosis Anisocytosis Microcytosis Macrocytosis Target Cells Tear Drop Cells Ovalocytes Schistocytes PT with INR INR PTT (Actin FS) Sodium Potassium Chloride Carbon Dioxide Anion Gap BUN Creatinine Est GFR (CKD-EPI)AfAm Est GFR (CKD-EPI)NonAf POC Glucometer 286 201 Random Glucose Lactic Acid Calcium Phosphorus Magnesium Total Bilirubin AST ALT Alkaline Phosphatase Creatine Kinase Troponin I B-Natriuretic Peptide Total Protein Albumin Urine Color Urine Appearance Urine pH Ur Specific Orion Urine Protein Urine Glucose (UA) Urine Ketones Urine Blood Urine Nitrite Urine Bilirubin Urine Urobilinogen Ur Leukocyte Esterase 02/12/19 02/13/19 02/13/19 16:42 06:26 16:48 WBC RBC Hgb Hct MCV MCH MCHC RDW Plt Count MPV Absolute Neuts (auto) Neutrophils % Neutrophils % (Manual) Band Neutrophils % Lymphocytes % Lymphocytes % (Manual) Monocytes % Monocytes % (Manual) Eosinophils % Eosinophils % (Manual) Basophils % Basophils % (Manual) Myelocytes % (Man) Promyelocytes % (Man) Blast Cells % (Manual) Nucleated RBC % Metamyelocytes Hypochromia Platelet Estimate Polychromasia Poikilocytosis Anisocytosis Microcytosis Macrocytosis Target Cells Tear Drop Cells Ovalocytes Schistocytes PT with INR INR PTT (Actin FS) Sodium Potassium Chloride Carbon Dioxide Anion Gap BUN Creatinine Est GFR (CKD-EPI)AfAm Est GFR (CKD-EPI)NonAf POC Glucometer 311 307 326 Random Glucose Lactic Acid Calcium Phosphorus Magnesium Total Bilirubin AST ALT Alkaline Phosphatase Creatine Kinase Troponin I B-Natriuretic Peptide Total Protein Albumin Urine Color Urine Appearance Urine pH Ur Specific Orion Urine Protein Urine Glucose (UA) Urine Ketones Urine Blood Urine Nitrite Urine Bilirubin Urine Urobilinogen Ur Leukocyte Esterase 02/17/19 02/17/19 02/17/19 13:30 17:15 21:51 WBC RBC Hgb Hct MCV MCH MCHC RDW Plt Count MPV Absolute Neuts (auto) Neutrophils % Neutrophils % (Manual) 69.0 D Band Neutrophils % 25.0 Lymphocytes % Lymphocytes % (Manual) 1.0 L D Monocytes % Monocytes % (Manual) 0 L D Eosinophils % Eosinophils % (Manual) 3.0 D Basophils % Basophils % (Manual) 0.0 Myelocytes % (Man) 0 Promyelocytes % (Man) 0 Blast Cells % (Manual) 0 Nucleated RBC % Metamyelocytes 1 D Hypochromia 1+ Platelet Estimate Decreased Polychromasia 2+ Poikilocytosis 1+ Anisocytosis 1+ Microcytosis 1+ Macrocytosis 0 Target Cells Tear Drop Cells 1+ Ovalocytes 1+ Schistocytes PT with INR INR PTT (Actin FS) Sodium Potassium Chloride Carbon Dioxide Anion Gap BUN Creatinine Est GFR (CKD-EPI)AfAm Est GFR (CKD-EPI)NonAf POC Glucometer 291 341 Random Glucose Lactic Acid Calcium Phosphorus Magnesium Total Bilirubin AST ALT Alkaline Phosphatase Creatine Kinase Troponin I B-Natriuretic Peptide Total Protein Albumin Urine Color Urine Appearance Urine pH Ur Specific [place]ion Urine Protein Urine Glucose (UA) Urine Ketones Urine Blood Urine Nitrite Urine Bilirubin Urine Urobilinogen Ur Leukocyte Esterase 02/18/19 02/18/19 06:20 12:24 WBC RBC Hgb Hct MCV MCH MCHC RDW Plt Count MPV Absolute Neuts (auto) Neutrophils % Neutrophils % (Manual) Band Neutrophils % Lymphocytes % Lymphocytes % (Manual) Monocytes % Monocytes % (Manual) Eosinophils % Eosinophils % (Manual) Basophils % Basophils % (Manual) Myelocytes % (Man) Promyelocytes % (Man) Blast Cells % (Manual) Nucleated RBC % Metamyelocytes Hypochromia Platelet Estimate Polychromasia Poikilocytosis Anisocytosis Microcytosis Macrocytosis Target Cells Tear Drop Cells Ovalocytes Schistocytes PT with INR INR PTT (Actin FS) Sodium Potassium Chloride Carbon Dioxide Anion Gap BUN Creatinine Est GFR (CKD-EPI)AfAm Est GFR (CKD-EPI)NonAf POC Glucometer 291 225 Random Glucose Lactic Acid Calcium Phosphorus Magnesium Total Bilirubin AST ALT Alkaline Phosphatase Creatine Kinase Troponin I B-Natriuretic Peptide Total Protein Albumin Urine Color Urine Appearance Urine pH Ur Specific [place]ion Urine Protein Urine Glucose (UA) Urine Ketones Urine Blood Urine Nitrite Urine Bilirubin Urine Urobilinogen Ur Leukocyte Esterase Microbiology 02/08/19 19:45 Blood - Peripheral Venous Blood Culture - Final NO GROWTH AFTER 5 DAYS INCUBATION 02/08/19 19:45 Blood - Peripheral Venous Blood Culture - Final NO GROWTH AFTER 5 DAYS INCUBATION 02/08/19 22:30 Urine - Urine Clean Catch Urine Culture - Final Normal Urogenital Ai ASSESSMENT AND PLAN: 68 year old man with a history of squamous cell lung cancer, bowel resection secondary to obstruction, tobacco use, alcohol use, chronic pain syndrome, opioid dependence who was sent to the ED from [place] for evaluation of hypotension. Acute metabolic encephalopathy-resolved Hypotension-resolved Depression and anxiety with suicidal ideation COPD Anemia of Chronic Disease SC Lung CA Chronic Pain Syndrome Plan: Dilaudid LITHOGRAPHER HELPER, off breakthrough, patient no using. Standing low dose IV dilaudid q6h Methadone taper. lidocaine patch. Will change to fentanyl patch if fails to improve Psych/pain management input noted. Seroquel, change to 25 mg QAm and 50 mg hs. Change ativan to standing. 1:1 constant observation [id number] lovenox Palliative care input noted, DNR/DNI. Dispo plan for [facility] when agitation improved. Discussed with nursing.
[2019-02-18] MEDS: LORazepam 0.5 MG TABLET PO SCH ×2 (14:40→22:42)
--- NOTE | 2019-02-18 14:47 | PN ---
Physical Exam: SUBJECTIVE: Patient seen and examined. He is not speaking today. OBJECTIVE: Vital Signs Period Temp Pulse Resp BP Sys/Seo Pulse Ox Last 24 Hr 97.6 F-98.8 F 108-123 17-22 114-148/63-80 90-94 GENERAL: Arousable with sternal rub, lying in bed HEAD: Normal with no signs of trauma. EYES: Eyes open minimally with sternal rub ENT: Ears normal, nares patent, moist mucous membranes. NECK: Trachea midline LUNGS: Labored breathing, right upper lobe expiratory wheezing HEART: Regular rate and rhythm, S1, S2 without murmur, rub or gallop. ABDOMEN: Soft, normoactive bowel sounds EXTREMITIES: Thin, right foot cool to touch, fingers cool to touch, no edema. Mittens removed. NEUROLOGICAL: responsive to sternal rub PSYCH: cannot assess SKIN: Warm, dry, normal turgor Laboratory Results - last 24 hr 02/08/19 02/08/19 02/08/19 12:10 12:10 12:10 WBC 10.7 H RBC 2.76 L Hgb 8.1 L Hct 24.9 L MCV 90.4 MCH 29.2 MCHC 32.4 RDW 17.4 H Plt Count 97 L MPV 7.9 D Absolute Neuts (auto) 10.4 H Neutrophils % 96.4 H Neutrophils % (Manual) 84.0 H Band Neutrophils % 11.0 Lymphocytes % 0.6 L Lymphocytes % (Manual) 2.0 L D Monocytes % 2.8 L Monocytes % (Manual) 3 L Eosinophils % 0.1 D Eosinophils % (Manual) 0.0 Basophils % 0.1 D Basophils % (Manual) 0.0 Myelocytes % (Man) 0 Promyelocytes % (Man) 0 Blast Cells % (Manual) 0 Nucleated RBC % 0 Metamyelocytes 0 Hypochromia 1+ Platelet Estimate Decreased Polychromasia 0 Poikilocytosis 0 Anisocytosis 1+ Microcytosis 0 Macrocytosis 0 Target Cells Tear Drop Cells Ovalocytes 1+ Schistocytes PT with INR 16.30 H INR 1.38 H PTT (Actin FS) 29.6 Sodium 137 Potassium 3.6 Chloride 100 Carbon Dioxide 31 Anion Gap 6 L BUN 14.4 Creatinine 0.5 L Est GFR (CKD-EPI)AfAm 129.05 Est GFR (CKD-EPI)NonAf 111.35 POC Glucometer Random Glucose 172 H Lactic Acid Calcium 8.3 L Phosphorus Magnesium Total Bilirubin AST ALT Alkaline Phosphatase Creatine Kinase 72 Troponin I < 0.02 B-Natriuretic Peptide 890.4 H Total Protein Albumin Urine Color Urine Appearance Urine pH Ur Specific [place] Urine Protein Urine Glucose (UA) Urine Ketones Urine Blood Urine Nitrite Urine Bilirubin Urine Urobilinogen Ur Leukocyte Esterase 02/08/19 02/08/19 02/09/19 19:45 22:30 06:05 WBC 8.0 RBC 2.92 L Hgb 8.6 L Hct 26.5 L MCV 90.8 MCH 29.4 MCHC 32.4 RDW 17.2 H Plt Count 80 L MPV 7.4 L Absolute Neuts (auto) 7.5 Neutrophils % 94.1 H Neutrophils % (Manual) 88.1 H Band Neutrophils % 5.9 Lymphocytes % 2.8 L D Lymphocytes % (Manual) 2.0 L Monocytes % 2.7 L Monocytes % (Manual) 4 Eosinophils % 0.0 D Eosinophils % (Manual) 0.0 Basophils % 0.4 D Basophils % (Manual) 0.0 Myelocytes % (Man) 0 Promyelocytes % (Man) 0 Blast Cells % (Manual) 0 Nucleated RBC % 0 Metamyelocytes 0 Hypochromia 0 Platelet Estimate Decreased Polychromasia 0 Poikilocytosis 0 Anisocytosis 0 Microcytosis 0 Macrocytosis 0 Target Cells Tear Drop Cells Ovalocytes Schistocytes PT with INR INR PTT (Actin FS) Sodium Potassium Chloride Carbon Dioxide Anion Gap BUN Creatinine Est GFR (CKD-EPI)AfAm Est GFR (CKD-EPI)NonAf POC Glucometer Random Glucose Lactic Acid 1.3 Calcium Phosphorus Magnesium Total Bilirubin AST ALT Alkaline Phosphatase Creatine Kinase Troponin I B-Natriuretic Peptide Total Protein Albumin Urine Color Yellow Urine Appearance Clear Urine pH 6.5 Ur Specific [place] 1.025 Urine Protein Negative Urine Glucose (UA) Trace Urine Ketones Trace H Urine Blood Negative Urine Nitrite Negative Urine Bilirubin Negative Urine Urobilinogen 2.0 Ur Leukocyte Esterase Negative 02/09/19 02/10/19 02/10/19 06:05 06:10 06:10 WBC 8.2 RBC 2.58 L Hgb 7.5 L Hct 23.7 L MCV 91.9 MCH 29.1 MCHC 31.7 L RDW 17.5 H Plt Count 69 L MPV 7.8 Absolute Neuts (auto) 7.8 Neutrophils % 94.7 H Neutrophils % (Manual) 93.9 H Band Neutrophils % 0.0 Lymphocytes % 2.5 L Lymphocytes % (Manual) 4.1 L D Monocytes % 2.8 L Monocytes % (Manual) 2 L Eosinophils % 0.0 Eosinophils % (Manual) 0.0 Basophils % 0.0 Basophils % (Manual) 0.0 Myelocytes % (Man) 0 Promyelocytes % (Man) 0 Blast Cells % (Manual) 0 Nucleated RBC % 0 Metamyelocytes 0 Hypochromia 0 Platelet Estimate Decreased Polychromasia 0 Poikilocytosis 0 Anisocytosis 0 Microcytosis 0 Macrocytosis 0 Target Cells Tear Drop Cells Ovalocytes Schistocytes PT with INR INR PTT (Actin FS) Sodium 139 138 Potassium 3.3 L 3.4 L Chloride 102 101 Carbon Dioxide 31 28 Anion Gap 7 L 9 BUN 11.7 10.1 Creatinine 0.4 L 0.4 L Est GFR (CKD-EPI)AfAm 141.45 141.45 Est GFR (CKD-EPI)NonAf 122.04 122.04 POC Glucometer Random Glucose 116 H 120 H Lactic Acid Calcium 8.1 L 7.8 L Phosphorus 2.2 L Magnesium 2.0 1.9 Total Bilirubin 0.6 AST 24 ALT 39 Alkaline Phosphatase 159 H Creatine Kinase Troponin I B-Natriuretic Peptide Total Protein 5.6 L Albumin 1.9 L Urine Color Urine Appearance Urine pH Ur Specific [place] Urine Protein Urine Glucose (UA) Urine Ketones Urine Blood Urine Nitrite Urine Bilirubin Urine Urobilinogen Ur Leukocyte Esterase 02/10/19 02/11/19 02/11/19 12:57 06:30 06:30 WBC 8.0 7.1 RBC 2.77 L 2.98 L Hgb 8.2 L 8.9 L Hct 25.4 L 27.5 L MCV 91.5 92.3 MCH 29.5 29.9 MCHC 32.3 32.4 RDW 17.7 H 18.1 H Plt Count 75 L 63 L MPV 8.7 D 8.2 Absolute Neuts (auto) 7.6 6.8 Neutrophils % 94.1 H 96.2 H Neutrophils % (Manual) 91.1 H 94.0 H Band Neutrophils % 6.9 2.0 Lymphocytes % 2.3 L 1.4 L D Lymphocytes % (Manual) 2.0 L D 2.0 L Monocytes % 3.4 L 2.4 L Monocytes % (Manual) 0 L D 2 L D Eosinophils % 0.0 0.0 Eosinophils % (Manual) 0.0 0.0 Basophils % 0.2 D 0.0 Basophils % (Manual) 0.0 0.0 Myelocytes % (Man) 0 0 Promyelocytes % (Man) 0 0 Blast Cells % (Manual) 0 0 Nucleated RBC % 0 0 Metamyelocytes 0 0 Hypochromia 1+ 0 Platelet Estimate Decreased Decreased Polychromasia 0 0 Poikilocytosis 1+ 0 Anisocytosis 2+ 1+ Microcytosis 2+ 0 Macrocytosis 0 1+ Target Cells 1+ 0 Tear Drop Cells Ovalocytes 1+ Schistocytes 1+ PT with INR INR PTT (Actin FS) Sodium 138 Potassium 4.1 Chloride 102 Carbon Dioxide 28 Anion Gap 8 BUN 12.7 Creatinine 0.5 L Est GFR (CKD-EPI)AfAm 129.05 Est GFR (CKD-EPI)NonAf 111.35 POC Glucometer Random Glucose 258 H Lactic Acid Calcium 8.3 L Phosphorus Magnesium Total Bilirubin AST ALT Alkaline Phosphatase Creatine Kinase Troponin I B-Natriuretic Peptide Total Protein Albumin Urine Color Urine Appearance Urine pH Ur Specific [place] Urine Protein Urine Glucose (UA) Urine Ketones Urine Blood Urine Nitrite Urine Bilirubin Urine Urobilinogen Ur Leukocyte Esterase 02/11/19 02/11/19 02/12/19 11:35 18:40 05:45 WBC 6.8 RBC 3.30 L Hgb 9.6 L Hct 30.6 L MCV 92.7 MCH 29.1 MCHC 31.3 L RDW 18.0 H Plt Count 66 L MPV 7.7 Absolute Neuts (auto) Neutrophils % Neutrophils % (Manual) Band Neutrophils % Lymphocytes % Lymphocytes % (Manual) Monocytes % Monocytes % (Manual) Eosinophils % Eosinophils % (Manual) Basophils % Basophils % (Manual) Myelocytes % (Man) Promyelocytes % (Man) Blast Cells % (Manual) Nucleated RBC % Metamyelocytes Hypochromia Platelet Estimate Polychromasia Poikilocytosis Anisocytosis Microcytosis Macrocytosis Target Cells Tear Drop Cells Ovalocytes Schistocytes PT with INR INR PTT (Actin FS) Sodium Potassium Chloride Carbon Dioxide Anion Gap BUN Creatinine Est GFR (CKD-EPI)AfAm Est GFR (CKD-EPI)NonAf POC Glucometer 286 201 Random Glucose Lactic Acid Calcium Phosphorus Magnesium Total Bilirubin AST ALT Alkaline Phosphatase Creatine Kinase Troponin I B-Natriuretic Peptide Total Protein Albumin Urine Color Urine Appearance Urine pH Ur Specific [place] Urine Protein Urine Glucose (UA) Urine Ketones Urine Blood Urine Nitrite Urine Bilirubin Urine Urobilinogen Ur Leukocyte Esterase 02/12/19 02/13/19 02/13/19 16:42 06:26 16:48 WBC RBC Hgb Hct MCV MCH MCHC RDW Plt Count MPV Absolute Neuts (auto) Neutrophils % Neutrophils % (Manual) Band Neutrophils % Lymphocytes % Lymphocytes % (Manual) Monocytes % Monocytes % (Manual) Eosinophils % Eosinophils % (Manual) Basophils % Basophils % (Manual) Myelocytes % (Man) Promyelocytes % (Man) Blast Cells % (Manual) Nucleated RBC % Metamyelocytes Hypochromia Platelet Estimate Polychromasia Poikilocytosis Anisocytosis Microcytosis Macrocytosis Target Cells Tear Drop Cells Ovalocytes Schistocytes PT with INR INR PTT (Actin FS) Sodium Potassium Chloride Carbon Dioxide Anion Gap BUN Creatinine Est GFR (CKD-EPI)AfAm Est GFR (CKD-EPI)NonAf POC Glucometer 311 307 326 Random Glucose Lactic Acid Calcium Phosphorus Magnesium Total Bilirubin AST ALT Alkaline Phosphatase Creatine Kinase Troponin I B-Natriuretic Peptide Total Protein Albumin Urine Color Urine Appearance Urine pH Ur Specific [place] Urine Protein Urine Glucose (UA) Urine Ketones Urine Blood Urine Nitrite Urine Bilirubin Urine Urobilinogen Ur Leukocyte Esterase 02/17/19 02/17/19 02/17/19 13:30 17:15 21:51 WBC RBC Hgb Hct MCV MCH MCHC RDW Plt Count MPV Absolute Neuts (auto) Neutrophils % Neutrophils % (Manual) 69.0 D Band Neutrophils % 25.0 Lymphocytes % Lymphocytes % (Manual) 1.0 L D Monocytes % Monocytes % (Manual) 0 L D Eosinophils % Eosinophils % (Manual) 3.0 D Basophils % Basophils % (Manual) 0.0 Myelocytes % (Man) 0 Promyelocytes % (Man) 0 Blast Cells % (Manual) 0 Nucleated RBC % Metamyelocytes 1 D Hypochromia 1+ Platelet Estimate Decreased Polychromasia 2+ Poikilocytosis 1+ Anisocytosis 1+ Microcytosis 1+ Macrocytosis 0 Target Cells Tear Drop Cells 1+ Ovalocytes 1+ Schistocytes PT with INR INR PTT (Actin FS) Sodium Potassium Chloride Carbon Dioxide Anion Gap BUN Creatinine Est GFR (CKD-EPI)AfAm Est GFR (CKD-EPI)NonAf POC Glucometer 291 341 Random Glucose Lactic Acid Calcium Phosphorus Magnesium Total Bilirubin AST ALT Alkaline Phosphatase Creatine Kinase Troponin I B-Natriuretic Peptide Total Protein Albumin Urine Color Urine Appearance Urine pH Ur Specific [place] Urine Protein Urine Glucose (UA) Urine Ketones Urine Blood Urine Nitrite Urine Bilirubin Urine Urobilinogen Ur Leukocyte Esterase 02/18/19 02/18/19 06:20 12:24 WBC RBC Hgb Hct MCV MCH MCHC RDW Plt Count MPV Absolute Neuts (auto) Neutrophils % Neutrophils % (Manual) Band Neutrophils % Lymphocytes % Lymphocytes % (Manual) Monocytes % Monocytes % (Manual) Eosinophils % Eosinophils % (Manual) Basophils % Basophils % (Manual) Myelocytes % (Man) Promyelocytes % (Man) Blast Cells % (Manual) Nucleated RBC % Metamyelocytes Hypochromia Platelet Estimate Polychromasia Poikilocytosis Anisocytosis Microcytosis Macrocytosis Target Cells Tear Drop Cells Ovalocytes Schistocytes PT with INR INR PTT (Actin FS) Sodium Potassium Chloride Carbon Dioxide Anion Gap BUN Creatinine Est GFR (CKD-EPI)AfAm Est GFR (CKD-EPI)NonAf POC Glucometer 291 225 Random Glucose Lactic Acid Calcium Phosphorus Magnesium Total Bilirubin AST ALT Alkaline Phosphatase Creatine Kinase Troponin I B-Natriuretic Peptide Total Protein Albumin Urine Color Urine Appearance Urine pH Ur Specific [place] Urine Protein Urine Glucose (UA) Urine Ketones Urine Blood Urine Nitrite Urine Bilirubin Urine Urobilinogen Ur Leukocyte Esterase Active Medications Generic Name Dose Route Start Last Admin Trade Name Freq PRN Reason Stop Dose Admin Dexamethasone 4 mg 02/16/19 22:00 02/18/19 11:50 Decadron - PO Not Given BID SHIRA Docusate Sodium 100 mg 02/08/19 22:00 02/18/19 06:10 Colace - PO 100 mg TID SHIRA Administration Enoxaparin Sodium 40 mg 02/17/19 10:00 02/18/19 11:53 Lovenox - SQ 40 mg DAILY SHIRA Administration Ferrous Gluconate 324 mg 02/09/19 10:00 02/18/19 11:50 Fergon - PO Not Given DAILY SHIRA Gabapentin 100 mg 02/14/19 22:00 02/18/19 06:10 Neurontin - PO 100 mg TID SHIRA Administration Guaifenesin 10 ml 02/11/19 16:47 02/13/19 04:41 Robitussin - PO 10 ml Q8H PRN Administration COUGH Hydromorphone HCl 10 mg 02/16/19 14:38 02/17/19 15:08 Hydromorphone 10 Mg/50 Ml-Ns [employer] 02/19/19 16:45 10 mg [employer]AT[employer]ER SHIRA Administration Protocol Hydromorphone HCl 0.75 mg 02/16/19 18:00 02/18/19 14:06 Dilaudid Vial - IVPB Not Given Q6H [facility] Insulin Aspart 1 vial 02/14/19 16:30 02/18/19 12:27 Novolog Vial Sliding Scale - SQ Not Given ACHS [facility] Protocol Lidocaine 1 patch 02/11/19 10:00 02/18/19 11:51 Lidoderm Patch - TP Not Given DAILY [facility] Lorazepam 0.5 mg 02/18/19 14:00 02/18/19 14:40 Ativan - PO Not Given TID [facility] Methadone HCl 5 mg 02/16/19 22:00 02/18/19 11:50 Dolophine - PO Not Given BID SHIRA Miscellaneous 1 each 02/11/19 22:00 02/17/19 21:59 Lidoderm Patch Removal MC 1 each DAILY@2200 [facility] Administration Pantoprazole Sodium 40 mg 02/09/19 10:00 02/18/19 11:51 Protonix - PO Not Given DAILY [facility] Etain Balance 1 each 02/10/19 22:00 02/17/19 23:30 Capsules Pt Own Med PO Not Given (Pyxis) HS SHIRA Quetiapine Fumarate 50 mg 02/08/19 22:00 02/17/19 21:40 Seroquel - PO 50 mg HS SHIRA Administration Quetiapine Fumarate 25 mg 02/18/19 10:00 02/18/19 11:52 Seroquel - PO Not Given DAILY [facility] Fluticasone/Salmeterol 1 puff 02/08/19 22:00 02/18/19 11:50 Advair 100mcg/50mcg - IH Not Given BID [facility] Senna 1 tab 02/13/19 11:30 02/18/19 11:51 Senna - PO Not Given BID SHIRA ASSESSMENT/PLAN: Mr. Gonzalez is a 68 y/o male with a history of RUL squamous cell carcinoma stage 4 , anemia, BPH, COPD, and GERD who presents for AMS and hypotension. He was recently admitted by Dr. Aviles after presenting to his clinic with anemia. Pt was transfused PRBCs and Hb improved. Pain management and agitation were difficult to control and pt was eventually stabilized and sent to SNF. Pt returned with AMS and hypotension. Pressure has stabilized but pain control continues to be difficult. #chronic pain 2/2 stage 4 squamous cell carcinoma Pt is intermittently restless. Decreased alertness over the last 24 hours. Breathing has also become more labored. He was saturating at 71% in the late morning and was put on non-rebreather and later was sating at 100% on 2-3L. MRI from December- no metastasis to brain. Pt refused imaging on this admission and last. [employer] pump discontinued as pt was unable to use. -O2 -decadron 4mg PO BID -Seroquel 25mg daily -Seroquel 50mg QHS -ativan 0.5mg TID -methadone 5mg BID -gabapentin 100mg TID -Dilaudid 0.75mg sub Q Q6H -lidoderm patch -pt's home medical marijuana -palliative care-[facility] submitted #agitation Reported to have suicidal thoughts at admission. Agitation has become better controlled with medication vs progression of disease. -direct supervision -hand mittens as needed -psych input noted #hyperglycemia likely 2/2 steroid use 200s-300s -BGM -SSI #transaminitis Alk phos 160 -monitor #hypokalemia, resolved -repleted -monitor #hypotension, resolved Likely 2/2 to pain medication. Afebrile. No leukocytosis. Sepsis workup negative. -hold antihypertensive medication #anemia Hb 9.1. -iron supplementation #GERD -continue pantoprazole #COPD -continue Advair 1 puff BID #constipation -colace and senna DVT ppx Lovenox 40 sq daily FEN PO fluids regular diet monitor BMP Dispo: monitor on med surg, potential d/c to [facility] when bed opens and he is off direct supervision and mittens for 24 hours DNR/DNI No legal healthcare proxy. and daughter available for decisions. Visit type - Emergency Visit Emergency Visit: Yes ED Registration Date: 02/08/19 Care time: The patient presented to the Emergency Department on the above date and was hospitalized for further evaluation of their emergent condition. - New Patient This patient is new to me today: No - Critical Care Critical Care patient: No - Discharge Referral Referred to [facility] Med P.C.: No ATTENDING PHYSICIAN STATEMENT I saw and evaluated the patient. I reviewed the resident's note and discussed the case with the resident. I agree with the resident's findings and plan as documented. SUBJECTIVE: OBJECTIVE: ASSESSMENT AND PLAN:
[2019-02-18] MEDS: HYDROmorphone *PCA* 10MG/50ML DISP.SYRIN PCA SCH (16:10)
--- NOTE | 2019-02-18 19:16 | PN ---
Progress Note, Physician History of Present Illness: Lethargic today. Not interacting with family. Requiring NRB for tachypnea. - Current Medication List Current Medications: Active Medications Dexamethasone (Decadron -) 4 mg PO BID [facility] Last Admin: 02/18/19 11:50 Dose: Not Given Docusate Sodium (Colace -) 100 mg PO TID [facility] Last Admin: 02/18/19 15:38 Dose: Not Given Enoxaparin Sodium (Lovenox -) 40 mg SQ DAILY [facility] Last Admin: 02/18/19 11:53 Dose: 40 mg Ferrous Gluconate (Fergon -) 324 mg PO DAILY [facility] Last Admin: 02/18/19 11:50 Dose: Not Given Gabapentin (Neurontin -) 100 mg PO TID [facility] Last Admin: 02/18/19 15:38 Dose: Not Given Guaifenesin (Robitussin -) 10 ml PO Q8H PRN PRN Reason: COUGH Last Admin: 02/13/19 04:41 Dose: 10 ml Hydromorphone HCl (Hydromorphone 10 Mg/50 Ml-Ns) 10 mg [facility] [place] [facility] [place] [facility]; Protocol Stop: 02/19/19 16:45 Last Admin: 02/18/19 16:10 Dose: 10 mg Hydromorphone HCl (Dilaudid Vial -) 0.75 mg IVPB Q6H [facility] Last Admin: 02/18/19 18:35 Dose: Not Given Insulin Aspart (Novolog Vial Sliding Scale -) 1 vial SQ [facility]; Protocol Last Admin: 02/18/19 18:22 Dose: Not Given Lidocaine (Lidoderm Patch -) 1 patch TP DAILY [facility] Last Admin: 02/18/19 11:51 Dose: Not Given Lorazepam (Ativan -) 0.5 mg PO TID [facility] Last Admin: 02/18/19 14:40 Dose: Not Given Methadone HCl (Dolophine -) 5 mg PO BID [facility] Last Admin: 02/18/19 11:50 Dose: Not Given Miscellaneous (Lidoderm Patch Removal) 1 each MC DAILY@2200 [facility] Last Admin: 02/17/19 21:59 Dose: 1 each Pantoprazole Sodium (Protonix -) 40 mg PO DAILY [facility] Last Admin: 02/18/19 11:51 Dose: Not Given Etain Balance Capsules Pt Own Med (Pyxis) 1 each PO HS [facility] Last Admin: 02/17/19 23:30 Dose: Not Given Quetiapine Fumarate (Seroquel -) 50 mg PO HS [facility] Last Admin: 02/17/19 21:40 Dose: 50 mg Quetiapine Fumarate (Seroquel -) 25 mg PO DAILY [facility] Last Admin: 02/18/19 11:52 Dose: Not Given Fluticasone/Salmeterol (Advair 100mcg/50mcg -) 1 puff IH BID [facility] Last Admin: 02/18/19 11:50 Dose: Not Given Senna (Senna -) 1 tab PO BID [facility] Last Admin: 02/18/19 11:51 Dose: Not Given - Objective Vital Signs: Vital Signs Temperature 98.7 F 02/18/19 16:04 Pulse Rate 135 H 02/18/19 16:40 Respiratory Rate 16 02/18/19 16:40 Blood Pressure 147/92 02/18/19 16:40 O2 Sat by Pulse Oximetry (%) 100 02/18/19 16:40 Constitutional: Yes: Mild Distress Eyes: Yes: Conjunctiva Clear Cardiovascular: Yes: Tachycardia Respiratory: Yes: On Venti-Mask, Tachypnea Gastrointestinal: Yes: Soft Edema: No Labs: CBC, BMP 02/17/19 13:30 02/17/19 13:30 INR, PTT INR 1.38 (0.83-1.09) H 02/08/19 12:10 Assessment/Plan 68M with locally advanced squamous cell carcinoma (RUL mass) s/p carbo/taxol / RT and most recently 1 cycle pembrolizumab, now admitted with chronic pain right chest pain. Also with poor mental status and agitation. Less responsive today and newly tachypneic. CXR peding. Pt is DNR/DNI On pain med regimen and dexamethasone Planned for [place]
[2019-02-18] MEDS: LIDOCAINE PATCH REMOVAL MC SCH (22:43)
[2019-02-18] MEDS: [UNRECOGNIZED DRUG - OTHER] PO SCH (22:44)
[2019-02-18] MEDS: QUEtiapine FUMARATE 50 MG TABLET PO SCH (22:45)
[2019-02-19] MEDS: HYDROmorphone HCl 2 MG/ML VIAL IVPB SCH ×2 (00:59→05:05)
[2019-02-19] MEDS: LORazepam 0.5 MG TABLET PO SCH (05:04)
[2019-02-19] MEDS: DOCUSATE SODIUM 100 MG CAPSULE (FP) PO SCH (05:05)
[2019-02-19] MEDS: GABAPENTIN 100 MG CAPSULE (FP) PO SCH (05:05)
[2019-02-19 06:35] VITALS: BP 54/36; PULSE 128; TEMP 99.2
[2019-02-19] MEDS: INSULIN SLIDING SCALE (NOVOLOG) 1 VIAL SQ SCH (06:35)
--- NOTE | 2019-02-19 10:50 | PN ---
Progress Note (short form) - Note Progress Note: Received a call around 9am that the patient was unresponsive and did not appear to be breathing. I arrived at the bedside to examine the patient and the family was present. Per the family they were sitting with the patient holding his hand when it appeared his chest had stopped moving. On physical exam, the patient did not have radial or femoral pulses. There were no breath sounds and no heart beat. The pupils were unreactive to light and there was no blink reflex. The patient was pronounced at 9:10am.
--- NOTE | 2019-02-19 12:12 | DS ---
Physical Exam: SUBJECTIVE: Patient on 02/19/2019 prior to visit. OBJECTIVE: Vital Signs Period Temp Pulse Resp BP Sys/Seo Pulse Ox Last 24 Hr 97.4 F-99.2 F 128-135 16-27 54-150/36-92 100-100 PHYSICAL EXAM Patient 02/19/2019 Last exam 02/18/2019 General: sitting in bed, tachypneic, anxious HEENT: pallor Neck: soft, supple Chest: poor effort Abdomen:soft, scaphoid Extremities: mittens, no edema Psych Anxious LABS Laboratory Results - last 24 hr 02/18/19 02/18/19 02/18/19 12:24 17:29 22:39 POC Glucometer 225 263 268 02/19/19 06:12 POC Glucometer 234 HOSPITAL COURSE: Date of Admission:02/08/19 Date of Discharge: 02/19/19 Minutes to complete discharge: 42 Discharge Summary Problems reviewed: Yes Reason For Visit: ENCOUNTER FOR PAIN MANAGEMENT Current Active Problems Acute metabolic encephalopathy-resolved Hypotension-resolved Depression and anxiety with suicidal ideation COPD Anemia of Chronic Disease SC Lung CA Chronic Pain Syndrome Hospital Course: 68 year old man with a history of squamous cell lung cancer, bowel resection secondary to obstruction, tobacco use, alcohol use, chronic pain syndrome, opioid dependence who was sent to the ED from [place] for evaluation of hypotension and altered mental status and concerns for suicidal ideation. He was seen by pain management, oncology, pulmonary. He was placed seroquel, dilaudid OBSTETRICAL TECH and methadone was tapered. He had intermittent episodes of agitation and was started on seroquel per psychiatry recommendations. He was seen by palliative care and family expressed wishes for DNR/DNI and [facility]. He on 02/19/2019 at 9:10 AM. - Instructions - Home Medications Comprehensive Discharge Medication List: Ambulatory Orders Docusate Sodium [Colace] 100 mg PO TID 01/05/19 Gabapentin 300 mg PO Q8H PRN 01/05/19 Oxycodone HCl 5 mg PO Q4H PRN 01/05/19 Pantoprazole Sodium [Protonix] 40 mg PO DAILY 01/05/19 Tamsulosin HCl 0.4 mg PO BID 01/05/19 Ferrous Gluconate [Fergon -] 324 mg PO DAILY #30 tab 01/08/19 Methadone [Dolophine -] 10 mg PO Q12H 01/08/19 Salmeterol/Fluticasone [Advair 100Mcg/50Mcg -] 2 puff IH Q12H PRN 01/25/19 Metoprolol Tartrate [Lopressor -] 50 mg PO BID 30 Days #60 tablet 02/03/19 Quetiapine Fumarate [Seroquel -] 50 mg PO BID 30 Days #60 tablet 02/03/19 This patient is new to me today: No Emergency Visit: Yes ED Registration Date: 02/08/19 Care time: The patient presented to the Emergency Department on the above date and was hospitalized for further evaluation of their emergent condition. Critical Care patient: No - Discharge Referral Referred to [facility] Med P.C.: No
== END 2019-02-19 13:49 | disposition expired | DRG 180 ==
LOC: JER 11:15 → JERBED 15:22 → J7W 20:14
PROVIDERS: ADMIT Internal Medicine; ATTEND Hospitalist
DX: C34.90 Malignant neoplasm of unspecified part of unspecified bronchus or lung (principal); G93.41 Metabolic encephalopathy; J96.01 Acute respiratory failure with hypoxia; J96.02 Acute respiratory failure with hypercapnia; R45.851 Suicidal ideations; F11.20 Opioid dependence, uncomplicated; I47.1 Supraventricular tachycardia; J44.9 Chronic obstructive pulmonary disease, unspecified; E87.6 Hypokalemia; E83.39 Other disorders of phosphorus metabolism; D69.6 Thrombocytopenia, unspecified; K21.9 Gastro-esophageal reflux disease without esophagitis; R41.82 Altered mental status, unspecified; N40.0 Benign prostatic hyperplasia without lower urinary tract symptoms; F32.9 Major depressive disorder, single episode, unspecified; E11.65 Type 2 diabetes mellitus with hyperglycemia; G89.29 Other chronic pain; F19.10 Other psychoactive substance abuse, uncomplicated; R45.1 Restlessness and agitation; F03.90 Unspecified dementia, unspecified severity, without behavioral disturbance, psychotic disturbance, mood disturbance, and anxiety; D63.8 Anemia in other chronic diseases classified elsewhere; F41.8 Other specified anxiety disorders; Z66 Do not resuscitate
CPT/HCPCS: 36415; 71045-TC-FY; 80048; 80053; 81003; 82550; 82962; 83605; 83735; 83880; 84100; 84484; 85025; 85027; 85610; 85730; 87040; 87086; 93005; 93010; 93971; 94640; 97116-GP; 97161-GP; 99283-25; G0008; J7030; Q2036